=== PATIENT | female | born 1995 | race African-American/Black ===

== ENCOUNTER 2016-09-02 00:34 | Emergency (ER) | payer BC, MEDICAID, OTHER ==
[2016-09-02 00:41] VITALS: RESP 18; TEMP 98.1
[2016-09-02] MEDS ORDERED: KETOROLAC 30 MG/ML 1 ML VIAL IVP STA (01:21)
--- NOTE | 2016-09-02 01:26 | ED ---
Upper Extremity HPI - General Chief Complaint: Extremity Injury, Upper Stated Complaint: R Arm Injury Time Seen by Provider: 09/02/16 00:47 Source: patient Mode of arrival: ambulatory Limitations: no limitations - History of Present Illness Initial Comments: Into 21-year-old woman who presents to be evaluated for going on 3-4 days of right upper arm pain. She describes the feeling as I can aching or a "jittery" feeling and we starting at the right biceps area but it does sometimes radiate towards the forearm. The patient is not sure if she had an injury while working. She does not remember any specific impact to her arm. 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 Patient denies fever, chest pain , dyspnea or diaphoresis. She has not had vomiting. MD Complaint: Injury to:: right, arm Onset/Timin -: days(s) Other Injuries: none Handedness: right Place: work Improves With: rest Worsens With: movement of extremity - Related Data Home Medications Medication Instructions Recorded Confirmed Albuterol Nebulized [Ventolin 2.5 mg INHALATION QID PRN 03/14/14 09/02/16 Nebulized] Beclomethasone Dipropionate [Qvar 1 - 2 puff INHALATION BID 03/14/14 09/02/16 40 mcg/puff] Beclomethasone Dipropionate [Qvar 1 puff INHALATION BID 09/04/15 09/02/16 80 mcg/puff] Omalizumab [Xolair] 1 injection INJ DIRECTED 09/04/15 09/02/16 Previous Rx's Medication Instructions Recorded Montelukast [Singulair] 10 mg PO DAILY #30 tab 03/16/14 Albuterol Inhaler [Ventolin Hfa 2 puff INHALATION Q4HR PRN #1 06/06/15 Inhaler] inhaler Ibuprofen [Motrin] 600 mg PO Q8HR PRN #30 tab 09/04/15 Cyclobenzaprine [Flexeril] 10 mg PO TID PRN #15 tab 09/02/16 Ibuprofen [Motrin] 400 mg PO Q6HR PRN #20 tab 09/02/16 Allergies Allergy/AdvReac Type Severity Reaction Status Date / Time amoxicillin [Amoxicillin] Allergy Anaphylaxis Verified 09/04/15 18:33 Review of Systems ROS Statement: Those systems with pertinent positive or pertinent negative responses have been documented in the HPI. ROS Other: All systems not noted in ROS Statement are negative. Constitutional: Denies: fever, chills, weakness Respiratory: Denies: cough, dyspnea Cardiovascular: Denies: chest pain, palpitations, edema Gastrointestinal: Denies: vomiting Skin: Denies: rash Neurological: Denies: weakness, numbness, paresthesias Past Medical History Past Medical History: Asthma History of Any Multi-Drug Resistant Organisms: None Reported Past Surgical History: No Surgical Hx Reported Additional Past Anesthesia/Blood Transfusion Reaction / Comment(s): no anesthesia or blood before Past Psychological History: No Psychological Hx Reported Smoking Status: Never smoker Past Alcohol Use History: None Reported Past Drug Use History: None Reported - Past Family History Father Family Medical History: Asthma General Exam Limitations: no limitations General appearance: alert, in no apparent distress Neck exam: Present: normal inspection, full ROM. Absent: tenderness Respiratory exam: Present: normal lung sounds bilaterally. Absent: respiratory distress, wheezes, rales, rhonchi, stridor Cardiovascular Exam: Present: regular rate, normal rhythm, normal heart sounds. Absent: systolic murmur, diastolic murmur, rubs, gallop Right Shoulder Exam: Present: normal inspection, full ROM Upper Arm exam: Present: normal inspection, full ROM, tenderness (To the right biceps. There also appears to be somewhat increased muscle tone when compared with the left side.). Absent: swelling, abrasion, laceration, ecchymosis, deformity, crepidus, dislocation, erythema Elbow exam: Present: normal inspection, full ROM. Absent: tenderness, swelling Forearm Wrist exam: Present: normal inspection, full ROM. Absent: tenderness, swelling Hand Wrist exam: Present: normal inspection, full ROM. Absent: tenderness, swelling Neuro motor exam: Present: wrist extension intact, thumb opposition intact Neurosensory exam: Present: radial nerve intact, ulnar nerve intact, median nerve intact Vascular: Present: normal capillary refill, radial pulse, brachial pulse, ulnar pulse. Absent: vascular compromise, Pallo Neurological exam: Present: alert. Absent: motor sensory deficit Skin exam: Present: warm, dry, intact, normal color. Absent: rash Course Vital Signs 09/02/16 00:39 Temperature 98.1 F Pulse Rate 88 Respiratory 18 Rate Blood Pressure 130/76 O2 Sat by Pulse 99 Oximetry Medical Decision Making - Lab Data Result diagrams: 09/02/16 01:50 09/02/16 01:50 Lab Results 09/02/16 09/02/16 09/02/16 Range/Units 01:50 01:50 01:50 WBC 7.1 (3.8-10.6) k/uL RBC 4.08 (3.80-5.40) m/uL Hgb 12.5 (11.4-16.0) gm/dL Hct 38.4 (34.0-46.0) % MCV 94.1 (80.0-100.0) fL MCH 30.6 (25.0-35.0) pg MCHC 32.5 (31.0-37.0) g/dL RDW 12.6 (11.5-15.5) % Plt Count 224 (150-450) k/uL Neutrophils % 45 % Lymphocytes % 43 % Monocytes % 5 % Eosinophils % 3 % Basophils % 1 % Neutrophils # 3.2 (1.3-7.7) k/uL Lymphocytes # 3.1 (1.0-4.8) k/uL Monocytes # 0.4 (0-1.0) k/uL Eosinophils # 0.2 (0-0.7) k/uL Basophils # 0.1 (0-0.2) k/uL D-Dimer <0.17 (<0.60) mg/L FEU Sodium 141 (137-145) mmol/L Potassium 5.1 (3.5-5.1) mmol/L Chloride 107 (98-107) mmol/L Carbon Dioxide 22 (22-30) mmol/L Anion Gap 12 mmol/L BUN 14 (7-17) mg/dL Creatinine 0.70 (0.52-1.04) mg/dL Est GFR (MDRD) Af Amer >60 (>60 ml/min/1.73 sqM) Est GFR (MDRD) Non-Af >60 (>60 ml/min/1.73 sqM) Glucose 95 (74-99) mg/dL Calcium 9.6 (8.4-10.2) mg/dL C-Reactive Protein <5.0 (<10.0) mg/L Disposition Clinical Impression: Muscle strain Disposition: HOME SELF-CARE Condition: Good Instructions: Muscle Strain (ED) Prescriptions: Cyclobenzaprine [Flexeril] 10 mg PO TID PRN #15 tab PRN Reason: Pain Ibuprofen [Motrin] 400 mg PO Q6HR PRN #20 tab PRN Reason: Pain Referrals: Hyacinth Montero MD [Primary Care Provider] - 1-2 days
[2016-09-02 02:14] LABS: Basophils # (A) 0.1 k/uL (0-0.2); Basophils % (A) 1 %; CH 30.6; CHCM 32.7; Eosinophils # (A) 0.2 k/uL (0-0.7); Eosinophils % (A) 3 %; HCT 38.4 % (34.0-46.0); HDW 2.05; HGB 12.5 gm/dL (11.4-16.0); Luc # (Auto) 0.21; Luc % (Auto) 3; Lymphocytes # (A) 3.1 k/uL (1.0-4.8); Lymphocytes % (A) 43 %; MCH 30.6 pg (25.0-35.0); MCHC 32.5 g/dL (31.0-37.0); MCV 94.1 fL (80.0-100.0); Mean Platelet Volume 7.7; Monocytes # (A) 0.4 k/uL (0-1.0); Monocytes % (A) 5 %; Neutrophils # (A) 3.2 k/uL (1.3-7.7); Neutrophils % (A) 45 %; RBC 4.08 m/uL (3.80-5.40); RDW 12.6 % (11.5-15.5); WBC 7.1 k/uL (3.8-10.6); WBC (Perox) 7.06
[2016-09-02 02:25] LABS: Anion Gap 12 mmol/L; C Reactive Protein <5.0 mg/L (<10.0); Calcium 9.6 mg/dL (8.4-10.2); Carbon Dioxide 22 mmol/L (22-30); Chloride 107 mmol/L (98-107); Glucose 95 mg/dL (74-99); Non-African American GFR(MDRD) >60 (>60 ml/min/1.73 sqM); Sodium 141 mmol/L (137-145)
[2016-09-02 02:30] LABS: Blood Urea Nitrogen 14 mg/dL (7-17); Potassium 5.1 mmol/L (3.5-5.1)
[2016-09-02 03:54] VITALS: BP 123/82; PULSE 67
== END 2016-09-02 03:52 | disposition home or self-care (01) ==
LOC: EC 00:34
DX: S46.211A Strain of muscle, fascia and tendon of other parts of biceps, right arm, initial encounter (principal); J45.909 Unspecified asthma, uncomplicated; Z79.51 Long term (current) use of inhaled steroids; Z79.899 Other long term (current) drug therapy; Z88.0 Allergy status to penicillin; X50.0XXA Overexertion from strenuous movement or load, initial encounter; Y92.89 Other specified places as the place of occurrence of the external cause
CPT/HCPCS: 36415; 85379; 80048; 85025; 86140; 99283; 96374; J1885; 99284

== ENCOUNTER 2016-11-17 16:33 | Emergency (ER) | payer MEDICAID, OTHER ==
[2016-11-17] MEDS ORDERED: methylPREDNISolone SOD SUCCI 125 MG/2 ML VIAL IV STA (18:20)
[2016-11-17] MEDS ORDERED: IPRATROPIUM-ALBUTEROL 3 ML NEB INHALATION STA (18:20)
[2016-11-17] MEDS ORDERED: SODIUM CHLORIDE 0.9% 1,000 ML IV STA (18:20)
--- NOTE | 2016-11-17 18:25 | ED ---
SOB HPI - General Chief Complaint: Shortness of Breath Stated Complaint: Asthma-SOB Time Seen by Provider: 11/17/16 18:01 Source: patient Mode of arrival: ambulatory Limitations: no limitations - History of Present Illness Initial Comments: She has a history of asthma, asthma been quite bad for the last few days she seen her family doctor recently and she also went to see her doctor with the director of physical therapy she seen her nurse practitioner she got her started on Abreva Singulair and prednisone and albuterol she still saying that had to use his albuterol multiple times today. She went to work today was quite short of breath in" home, had a fever yesterday and has been coughing now bringing up any phlegm cough is mostly dry she also has a chest pain when she takes a deep breath, degree of system is negative otherwise - Related Data Home Medications Medication Instructions Recorded Confirmed Albuterol Nebulized [Ventolin 2.5 mg INHALATION RT-QID PRN 03/14/14 11/17/16 Nebulized] Beclomethasone Dipropionate [Qvar 1 puff INHALATION RT-BID 09/04/15 11/17/16 80 mcg/puff] Albuterol Inhaler [Ventolin Hfa 2 puff INHALATION RT-Q4H PRN 11/17/16 11/17/16 Inhaler] Fluticasone/Vilanterol [Breo 1 puff INHALATION RT-DAILY 11/17/16 11/17/16 Ellipta 200-25 Mcg INH] Norelgestromin/Ethin.estradiol 1 patch TRANSDERM VIDAL 11/17/16 11/17/16 [Xulane Patch] predniSONE See Taper PO DAILY 11/17/16 11/17/16 Previous Rx's Medication Instructions Recorded Montelukast [Singulair] 10 mg PO DAILY #30 tab 03/16/14 Allergies Allergy/AdvReac Type Severity Reaction Status Date / Time amoxicillin [Amoxicillin] Allergy Anaphylaxis Verified 11/17/16 18:39 Review of Systems ROS Statement: Those systems with pertinent positive or pertinent negative responses have been documented in the HPI. ROS Other: All systems not noted in ROS Statement are negative. Past Medical History Past Medical History: Asthma History of Any Multi-Drug Resistant Organisms: None Reported Past Surgical History: No Surgical Hx Reported Additional Past Anesthesia/Blood Transfusion Reaction / Comment(s): no anesthesia or blood before Past Psychological History: No Psychological Hx Reported Smoking Status: Never smoker Past Alcohol Use History: None Reported Past Drug Use History: None Reported - Past Family History Father Family Medical History: Asthma General Exam - General Exam Comments Initial Comments: General: The patient is awake and alert, mild distress, some jitteriness from the albuterol Skin: Skin is warm and dry and no rashes or lesions are noted. Eye: Pupils are equal, round and reactive to light, extra-ocular movements are intact; there is normal conjunctiva bilaterally. Ears, nose, mouth and throat: There are moist mucous membranes and no oral lesions. Neck: The neck is supple, there is no tenderness Cardiovascular: There is a regular rate and rhythm. No murmur, rub or gallop is appreciated. Respiratory: To auscultation bilateral, mild wheezing noticed Gastrointestinal: Soft, non-distended, non-tender abdomen without masses or organomegaly noted. There is no rebound or guarding present. Bowel sounds are unremarkable. Back: There is no tenderness to palpation in the midline. There is no obvious deformity. Musculoskeletal: Normal ROM, no tenderness, There is no pedal edema. There is no calf tenderness or swelling. No cords were appreciated. Neurological: CN II-XII intact, Cranial nerves III through XII are intact. There are no obvious motor or sensory deficits. Coordination appears grossly intact. Speech is normal. Psychiatric: Cooperative, appropriate mood & affect, normal judgment. Limitations: no limitations Course Vital Signs 11/17/16 11/17/16 11/17/16 17:04 19:20 19:30 Temperature 99.3 F Pulse Rate 96 92 90 Respiratory 20 Rate Blood Pressure 136/78 O2 Sat by Pulse 100 Oximetry Is normal sinus rhythm with sinus arrhythmia ventricular rate is 92 PA interval is 164 QRS duration is 80 QT/QTc is 358/442 review of this EKG does not reveal any ST elevation or ST depression Is in was reassessed at 2100 she is feeling a lot better she was giving some neb treatment she was giving him IV steroids, labs were reviewed and discussed with the patient, CBC, d-dimer, compressive metabolic panel, chest x-ray, EKG, troponin are all negative that was discussed with the patient she be discharged with the steroids 20 mg once daily for next 5 days and she'll follow-up with her bologna lacer she will continue her short acting long-acting bronchodilators as well as inhaled steroids Medical Decision Making - Lab Data Result diagrams: 11/17/16 19:43 11/17/16 19:43 Lab Results 11/17/16 11/17/16 11/17/16 Range/Units 19:43 19:43 19:43 WBC 9.0 (3.8-10.6) k/uL RBC 4.32 (3.80-5.40) m/uL Hgb 14.9 (11.4-16.0) gm/dL Hct 40.9 (34.0-46.0) % MCV 94.8 (80.0-100.0) fL MCH 34.6 (25.0-35.0) pg MCHC 36.5 (31.0-37.0) g/dL RDW 13.4 (11.5-15.5) % Plt Count 236 (150-450) k/uL Neutrophils % 86 % Lymphocytes % 11 % Monocytes % 2 % Eosinophils % 0 % Basophils % 0 % Neutrophils # 7.8 H (1.3-7.7) k/uL Lymphocytes # 1.0 (1.0-4.8) k/uL Monocytes # 0.2 (0-1.0) k/uL Eosinophils # 0.0 (0-0.7) k/uL Basophils # 0.0 (0-0.2) k/uL PT (9.0-12.0) sec INR (<1.1) APTT (22.0-30.0) sec D-Dimer (<0.60) mg/L FEU Sodium 140 (137-145) mmol/L Potassium 4.9 (3.5-5.1) mmol/L Chloride 105 (98-107) mmol/L Carbon Dioxide 22 (22-30) mmol/L Anion Gap 13 mmol/L BUN 15 (7-17) mg/dL Creatinine 0.77 (0.52-1.04) mg/dL Est GFR (MDRD) Af Amer >60 (>60 ml/min/1.73 sqM) Est GFR (MDRD) Non-Af >60 (>60 ml/min/1.73 sqM) Glucose 102 H (74-99) mg/dL Calcium 10.0 (8.4-10.2) mg/dL Total Bilirubin 0.6 (0.2-1.3) mg/dL AST 21 (14-36) U/L ALT 21 (9-52) U/L Alkaline Phosphatase 83 (38-126) U/L Total Creatine Kinase 231 H (30-135) U/L CK-MB (CK-2) 0.8 (0.0-2.4) ng/mL CK-MB (CK-2) Rel Index 0.3 Troponin I <0.012 (0.000-0.034) ng/mL Total Protein 8.9 H (6.3-8.2) g/dL Albumin 5.2 H (3.5-5.0) g/dL 11/17/16 Range/Units 19:43 WBC (3.8-10.6) k/uL RBC (3.80-5.40) m/uL Hgb (11.4-16.0) gm/dL Hct (34.0-46.0) % MCV (80.0-100.0) fL MCH (25.0-35.0) pg MCHC (31.0-37.0) g/dL RDW (11.5-15.5) % Plt Count (150-450) k/uL Neutrophils % % Lymphocytes % % Monocytes % % Eosinophils % % Basophils % % Neutrophils # (1.3-7.7) k/uL Lymphocytes # (1.0-4.8) k/uL Monocytes # (0-1.0) k/uL Eosinophils # (0-0.7) k/uL Basophils # (0-0.2) k/uL PT 10.5 (9.0-12.0) sec INR 1.0 (<1.1) APTT 23.2 (22.0-30.0) sec D-Dimer <0.17 (<0.60) mg/L FEU Sodium (137-145) mmol/L Potassium (3.5-5.1) mmol/L Chloride (98-107) mmol/L Carbon Dioxide (22-30) mmol/L Anion Gap mmol/L BUN (7-17) mg/dL Creatinine (0.52-1.04) mg/dL Est GFR (MDRD) Af Amer (>60 ml/min/1.73 sqM) Est GFR (MDRD) Non-Af (>60 ml/min/1.73 sqM) Glucose (74-99) mg/dL Calcium (8.4-10.2) mg/dL Total Bilirubin (0.2-1.3) mg/dL AST (14-36) U/L ALT (9-52) U/L Alkaline Phosphatase (38-126) U/L Total Creatine Kinase (30-135) U/L CK-MB (CK-2) (0.0-2.4) ng/mL CK-MB (CK-2) Rel Index Troponin I (0.000-0.034) ng/mL Total Protein (6.3-8.2) g/dL Albumin (3.5-5.0) g/dL Disposition Clinical Impression: Pleuritic chest pain, Acute exacerbation of asthma with allergic rhinitis Disposition: HOME SELF-CARE Referrals: Hyacinth Montero MD [Primary Care Provider] - 1-2 days
--- NOTE | 2016-11-17 19:27 | XR ---
EXAMINATION TYPE: XR chest 2V DATE OF EXAM: 11/17/2016 7:19 PM COMPARISON: 06/06/2015 HISTORY: Difficulty breathing TECHNIQUE: Frontal and lateral views of the chest are obtained. FINDINGS: Heart and mediastinum are normal. Lungs are clear. Diaphragm is normal. Bony thorax is int act. There are chest leads. IMPRESSION: Normal chest. No change.
[2016-11-17] MEDS ORDERED: ACETAMINOPHEN TAB 500 MG TAB PO STA (19:55)
[2016-11-17 20:01] LABS: Basophils % (A) 0 %; CH 30.4; CHCM 32.2; Eosinophils % (A) 0 %; HCT 40.9 % (34.0-46.0); HDW 1.97; HGB 14.9 gm/dL (11.4-16.0); Luc # (Auto) 0.06; Luc % (Auto) 1; Lymphocytes % (A) 11 %; MCH 34.6 pg (25.0-35.0); MCHC 36.5 g/dL (31.0-37.0); MCV 94.8 fL (80.0-100.0); Mean Platelet Volume 7.1; Monocytes # (A) 0.2 k/uL (0-1.0); Monocytes % (A) 2 %; Neutrophils # (A) 7.8 k/uL (1.3-7.7); Neutrophils % (A) 86 %; RBC 4.32 m/uL (3.80-5.40); RDW 13.4 % (11.5-15.5); WBC (Perox) 8.51
[2016-11-17 20:09] LABS: Partial Thromboplastin Time 23.2 sec (22.0-30.0); Prothrombin Time 10.5 sec (9.0-12.0)
[2016-11-17 20:16] LABS: ALT 21 U/L (9-52); AST 21 U/L (14-36); Alkaline Phosphatase 83 U/L (38-126); Anion Gap 13 mmol/L; Blood Urea Nitrogen 15 mg/dL (7-17); Carbon Dioxide 22 mmol/L (22-30); Chloride 105 mmol/L (98-107); Glucose 102 mg/dL (74-99); Non-African American GFR(MDRD) >60 (>60 ml/min/1.73 sqM); Potassium 4.9 mmol/L (3.5-5.1); Sodium 140 mmol/L (137-145); Total Bilirubin 0.6 mg/dL (0.2-1.3); Total Protein 8.9 g/dL (6.3-8.2)
[2016-11-17 20:20] LABS: Creatine Kinase 231 U/L (30-135)
[2016-11-17 20:33] LABS: Creatine Kinase MB 0.8 ng/mL (0.0-2.4); Troponin I <0.012 ng/mL (0.000-0.034)
[2016-11-17 21:08] VITALS: BP 121/87; PULSE 97; RESP 18; TEMP 97
== END 2016-11-17 21:28 | disposition home or self-care (01) ==
LOC: EC 16:33
DX: J45.901 Unspecified asthma with (acute) exacerbation (principal); R07.81 Pleurodynia; Z79.3 Long term (current) use of hormonal contraceptives; Z79.51 Long term (current) use of inhaled steroids; Z88.0 Allergy status to penicillin
CPT/HCPCS: 36415; 94640; 93005; 85379; 80053; 82550; 82553; 84484; 85025; 85610; 85730; 71020; 99285; 96374; 96361; J2930

== ENCOUNTER 2017-01-22 18:34 | Emergency (ER) | payer MEDICAID, OTHER ==
[2017-01-22 18:49] VITALS: TEMP 97.9
[2017-01-22] MEDS ORDERED: methylPREDNISolone SOD SUCCI 125 MG/2 ML VIAL IV STA (18:59)
[2017-01-22] MEDS ORDERED: IPRATROPIUM-ALBUTEROL 3 ML NEB INHALATION STA (18:59)
--- NOTE | 2017-01-22 19:33 | ED ---
General Adult HPI - General Chief complaint: Shortness of Breath Stated complaint: Diff breathing Time Seen by Provider: 01/22/17 18:38 Source: patient, EMS Mode of arrival: EMS Limitations: no limitations - History of Present Illness Initial comments: 21-year-old female patient presented to emergency department today with complaints of shortness of breath and asthma exacerbation. Patient states that she has been mildly short of breath all day, and started having more trouble at work today. Patient states that she is short of breath, is having some pain in the left side of her chest that radiates through to her back. Patient states pain worsens when she takes deep breaths. Patient does have a history of asthma with the last asthma attack being about 5 days ago. Patient states that she has been using her rescue inhaler 7 or 8 times per day. Patient says she has 2-4 puffs at a time. She denies any sick, vomiting, cough, congestion, sore throat, nasal dizziness, weakness, or chills. Patient did a breathing treatment when she woke this morning, one before she went to work, and did have [address] here. Patient states she has had very minimal improvement from the breathing treatment. - Related Data Home Medications Medication Instructions Recorded Confirmed Beclomethasone Dipropionate [Qvar 2 puff INHALATION RT-BID 09/04/15 01/22/17 80 mcg/puff] Albuterol Inhaler [Ventolin Hfa 2 puff INHALATION RT-Q4H PRN 11/17/16 01/22/17 Inhaler] Fluticasone/Vilanterol [Breo 1 puff INHALATION RT-DAILY 11/17/16 01/22/17 Ellipta 200-25 Mcg INH] Norelgestromin/Ethin.estradiol 1 patch TRANSDERM VIDAL 11/17/16 01/22/17 [Xulane Patch] Montelukast [Singulair] 10 mg PO QAM 01/22/17 01/22/17 Allergies Allergy/AdvReac Type Severity Reaction Status Date / Time amoxicillin [Amoxicillin] Allergy Anaphylaxis Verified 11/17/16 18:39 Review of Systems ROS Statement: Those systems with pertinent positive or pertinent negative responses have been documented in the HPI. ROS Other: All systems not noted in ROS Statement are negative. Past Medical History Past Medical History: Asthma History of Any Multi-Drug Resistant Organisms: None Reported Past Surgical History: No Surgical Hx Reported Additional Past Anesthesia/Blood Transfusion Reaction / Comment(s): no anesthesia or blood before Past Psychological History: No Psychological Hx Reported Smoking Status: Never smoker Past Alcohol Use History: None Reported Past Drug Use History: None Reported - Past Family History Father Family Medical History: Asthma General Exam Limitations: no limitations General appearance: alert, in no apparent distress, in distress (Mild distress, appears short of breath.) Eye exam: Present: normal appearance, PERRL, EOMI. Absent: scleral icterus, conjunctival injection, periorbital swelling ENT exam: Present: normal exam, normal oropharynx, mucous membranes moist Neck exam: Present: normal inspection. Absent: tenderness, meningismus, lymphadenopathy Respiratory exam: Present: normal lung sounds bilaterally, respiratory distress (Mild, appears short of breath). Absent: wheezes, rales, rhonchi, stridor Cardiovascular Exam: Present: normal rhythm, tachycardia, normal heart sounds. Absent: systolic murmur, diastolic murmur, rubs, gallop, clicks GI/Abdominal exam: Present: soft, normal bowel sounds. Absent: distended, tenderness, guarding, rebound, rigid Extremities exam: Present: normal inspection, full ROM, normal capillary refill. Absent: tenderness, pedal edema, joint swelling, calf tenderness Back exam: Present: normal inspection Neurological exam: Present: alert, oriented X3, CN II-XII intact Psychiatric exam: Present: normal affect, normal mood Skin exam: Present: warm, dry, intact, normal color. Absent: rash Course Vital Signs 01/22/17 01/22/17 01/22/17 18:40 18:44 19:15 Temperature 97.9 F Pulse Rate 103 H 79 Respiratory 24 26 H Rate Blood Pressure 142/94 O2 Sat by Pulse 100 100 Oximetry 01/22/17 01/22/17 01/22/17 19:24 19:30 20:15 Temperature Pulse Rate 81 88 98 Respiratory 18 18 Rate Blood Pressure 131/83 130/96 O2 Sat by Pulse 100 99 Oximetry 01/22/17 01/22/17 01/22/17 20:46 21:24 22:25 Temperature Pulse Rate 83 89 99 Respiratory 18 18 18 Rate Blood Pressure 144/88 139/83 153/97 O2 Sat by Pulse 100 99 100 Oximetry Medical Decision Making - Medical Decision Making 21-year-old female patient presents to emergency department today for evaluation of shortness of breath, and left-sided chest pain. Patient had past medical history significant for asthma. After negative chest x-ray, IM slight Medrol, and breathing treatment patient's symptoms had not improved. At that time Blood work was obtained and was within normal limits other than a d-dimer of 0.68. CTA of the chest was performed and showed no pulmonary embolus. Patient's symptoms have improved other than some mild discomfort in her left chest. Patient is also complaining of headache and is having some nausea. Vital signs and oxygenation remained stable. At this time patient will be discharged home with instructions to continue current regimen for controlling her asthma. She is also instructed to follow-up with her pharmacy services representative in one to 2 days. Patient will be given a starter pack for Zofran. Patient instructed to return for any new, worsening, or concerning symptoms. Patient verbalized understanding and agrees with this plan. - Lab Data Result diagrams: 01/22/17 20:25 01/22/17 20:25 Lab Results 01/22/17 01/22/17 01/22/17 Range/Units 20:25 20:25 20:25 WBC 9.1 (3.8-10.6) k/uL RBC 4.33 (3.80-5.40) m/uL Hgb 13.5 (11.4-16.0) gm/dL Hct 41.0 (34.0-46.0) % MCV 94.6 (80.0-100.0) fL MCH 31.2 (25.0-35.0) pg MCHC 33.0 (31.0-37.0) g/dL RDW 13.5 (11.5-15.5) % Plt Count 269 (150-450) k/uL Neutrophils % 72 % Lymphocytes % 20 % Monocytes % 3 % Eosinophils % 4 % Basophils % 1 % Neutrophils # 6.5 (1.3-7.7) k/uL Lymphocytes # 1.8 (1.0-4.8) k/uL Monocytes # 0.3 (0-1.0) k/uL Eosinophils # 0.4 (0-0.7) k/uL Basophils # 0.1 (0-0.2) k/uL D-Dimer 0.68 H (<0.60) mg/L FEU Sample Site ABG pH (7.35-7.45) ABG pCO2 (35-45) mmHg ABG pO2 (83-108) mmHg ABG HCO3 (21-25) mmol/L ABG Total CO2 (19-24) mmol/L ABG O2 Saturation (94-97) % ABG Base Excess mmol/L FiO2 % Sodium 144 (137-145) mmol/L Potassium 4.1 (3.5-5.1) mmol/L Chloride 105 (98-107) mmol/L Carbon Dioxide 24 (22-30) mmol/L Anion Gap 15 mmol/L BUN 12 (7-17) mg/dL Creatinine 0.70 (0.52-1.04) mg/dL Est GFR (MDRD) Af Amer >60 (>60 ml/min/1.73 sqM) Est GFR (MDRD) Non-Af >60 (>60 ml/min/1.73 sqM) Glucose 95 (74-99) mg/dL Calcium 10.1 (8.4-10.2) mg/dL Total Bilirubin 0.3 (0.2-1.3) mg/dL AST 22 (14-36) U/L ALT 30 (9-52) U/L Alkaline Phosphatase 74 (38-126) U/L Troponin I (0.000-0.034) ng/mL Total Protein 8.1 (6.3-8.2) g/dL Albumin 5.0 (3.5-5.0) g/dL Urine Color Urine Appearance (Clear) Urine pH (5.0-8.0) Ur Specific Sharon (1.001-1.035) Urine Protein (Negative) Urine Glucose (UA) (Negative) Urine Ketones (Negative) Urine Blood (Negative) Urine Nitrite (Negative) Urine Bilirubin (Negative) Urine Urobilinogen (<2.0) mg/dL Ur Leukocyte Esterase (Negative) Ur Squamous Epith Cells (0-4) /hpf Amorphous Sediment (None) /hpf Urine Bacteria (None) /hpf Urine HCG, Qual (Not Detectd) 01/22/17 01/22/17 01/22/17 Range/Units 20:25 20:58 21:10 WBC (3.8-10.6) k/uL RBC (3.80-5.40) m/uL Hgb (11.4-16.0) gm/dL Hct (34.0-46.0) % MCV (80.0-100.0) fL MCH (25.0-35.0) pg MCHC (31.0-37.0) g/dL RDW (11.5-15.5) % Plt Count (150-450) k/uL Neutrophils % % Lymphocytes % % Monocytes % % Eosinophils % % Basophils % % Neutrophils # (1.3-7.7) k/uL Lymphocytes # (1.0-4.8) k/uL Monocytes # (0-1.0) k/uL Eosinophils # (0-0.7) k/uL Basophils # (0-0.2) k/uL D-Dimer (<0.60) mg/L FEU Sample Site R RAD ABG pH 7.52 H (7.35-7.45) ABG pCO2 27 L (35-45) mmHg ABG pO2 149 H (83-108) mmHg ABG HCO3 22 (21-25) mmol/L ABG Total CO2 23 (19-24) mmol/L ABG O2 Saturation 100.0 H (94-97) % ABG Base Excess -0.8 mmol/L FiO2 28 % Sodium (137-145) mmol/L Potassium (3.5-5.1) mmol/L Chloride (98-107) mmol/L Carbon Dioxide (22-30) mmol/L Anion Gap mmol/L BUN (7-17) mg/dL Creatinine (0.52-1.04) mg/dL Est GFR (MDRD) Af Amer (>60 ml/min/1.73 sqM) Est GFR (MDRD) Non-Af (>60 ml/min/1.73 sqM) Glucose (74-99) mg/dL Calcium (8.4-10.2) mg/dL Total Bilirubin (0.2-1.3) mg/dL AST (14-36) U/L ALT (9-52) U/L Alkaline Phosphatase (38-126) U/L Troponin I <0.012 (0.000-0.034) ng/mL Total Protein (6.3-8.2) g/dL Albumin (3.5-5.0) g/dL Urine Color Urine Appearance (Clear) Urine pH (5.0-8.0) Ur Specific Sharon (1.001-1.035) Urine Protein (Negative) Urine Glucose (UA) (Negative) Urine Ketones (Negative) Urine Blood (Negative) Urine Nitrite (Negative) Urine Bilirubin (Negative) Urine Urobilinogen (<2.0) mg/dL Ur Leukocyte Esterase (Negative) Ur Squamous Epith Cells (0-4) /hpf Amorphous Sediment (None) /hpf Urine Bacteria (None) /hpf Urine HCG, Qual Not Detected (Not Detectd) 01/22/17 Range/Units 21:10 WBC (3.8-10.6) k/uL RBC (3.80-5.40) m/uL Hgb (11.4-16.0) gm/dL Hct (34.0-46.0) % MCV (80.0-100.0) fL MCH (25.0-35.0) pg MCHC (31.0-37.0) g/dL RDW (11.5-15.5) % Plt Count (150-450) k/uL Neutrophils % % Lymphocytes % % Monocytes % % Eosinophils % % Basophils % % Neutrophils # (1.3-7.7) k/uL Lymphocytes # (1.0-4.8) k/uL Monocytes # (0-1.0) k/uL Eosinophils # (0-0.7) k/uL Basophils # (0-0.2) k/uL D-Dimer (<0.60) mg/L FEU Sample Site ABG pH (7.35-7.45) ABG pCO2 (35-45) mmHg ABG pO2 (83-108) mmHg ABG HCO3 (21-25) mmol/L ABG Total CO2 (19-24) mmol/L ABG O2 Saturation (94-97) % ABG Base Excess mmol/L FiO2 % Sodium (137-145) mmol/L Potassium (3.5-5.1) mmol/L Chloride (98-107) mmol/L Carbon Dioxide (22-30) mmol/L Anion Gap mmol/L BUN (7-17) mg/dL Creatinine (0.52-1.04) mg/dL Est GFR (MDRD) Af Amer (>60 ml/min/1.73 sqM) Est GFR (MDRD) Non-Af (>60 ml/min/1.73 sqM) Glucose (74-99) mg/dL Calcium (8.4-10.2) mg/dL Total Bilirubin (0.2-1.3) mg/dL AST (14-36) U/L ALT (9-52) U/L Alkaline Phosphatase (38-126) U/L Troponin I (0.000-0.034) ng/mL Total Protein (6.3-8.2) g/dL Albumin (3.5-5.0) g/dL Urine Color Light Yellow Urine Appearance Cloudy H (Clear) Urine pH 8.0 (5.0-8.0) Ur Specific Sharon 1.010 (1.001-1.035) Urine Protein Negative (Negative) Urine Glucose (UA) Negative (Negative) Urine Ketones Negative (Negative) Urine Blood Negative (Negative) Urine Nitrite Negative (Negative) Urine Bilirubin Negative (Negative) Urine Urobilinogen <2.0 (<2.0) mg/dL Ur Leukocyte Esterase Negative (Negative) Ur Squamous Epith Cells 1 (0-4) /hpf Amorphous Sediment Rare H (None) /hpf Urine Bacteria Many H (None) /hpf Urine HCG, Qual (Not Detectd) 01/22/17 20:06 EKG obtained at 1954 reveals normal sinus rhythm with sinus arrhythmia, nonspecific T-wave abnormality. Ventricular rate 75, AR interval 166, Q hinduism 84, QT 378, QTC 422. - Radiology Data Radiology results: report reviewed, image reviewed Two-view x-ray of the chest reveals no focal air pace opacity, pleural effusion , or pneumothorax seen. The cardiac silhouette size is within normal limits. The osseous structures are intact. Impression by Dr. Beard reveals no acute cardio pulmonary process. CT of the chest reveals no pulmonary embolus, the aorta is within normal limits , no aneurysm or dissection. The cardiomediastinal structures are normal. No adenopathy or effusions. The lungs are clear. The osseous structures are unremarkable. Impression by Dr. Ortega is no evidence for pulmonary embolus. Disposition Clinical Impression: Asthma, Headache Disposition: HOME SELF-CARE Condition: Good Instructions: Asthma (ED), Acute Headache (ED) Additional Instructions: Follow-up with pharmacy services representative in one to 2 days for recheck. Continue home regimen for asthma control. Return for any new, worsening, or concerning symptoms. Referrals: Hyacinth Montero MD [Primary Care Provider] - 1-2 days Time of Disposition: 23:35
[2017-01-22] MEDS ORDERED: methylPREDNISolone SOD SUCCI 125 MG/2 ML VIAL IM ONE (19:45)
--- NOTE | 2017-01-22 19:46 | XR ---
EXAMINATION TYPE: XR chest 2V DATE OF EXAM: 01/22/2017 COMPARISON: November 17, 2016. HISTORY: Chest pain TECHNIQUE: Frontal and lateral views of the chest are obtained. FINDINGS: There is no focal air space opacity, pleural effusion, or pneumothorax seen. The cardiac silhouette size is within normal limits. The osseous structures are intact. IMPRESSION: No acute cardiopulmonary process.
[2017-01-22] MEDS ORDERED: KETOROLAC 30 MG/ML 1 ML VIAL IVP STA (20:13)
[2017-01-22 20:40] VITALS: RESP 18
[2017-01-22 20:43] LABS: Basophils # (A) 0.1 k/uL (0-0.2); Basophils % (A) 1 %; CH 30.9; CHCM 32.8; Eosinophils # (A) 0.4 k/uL (0-0.7); Eosinophils % (A) 4 %; HGB 13.5 gm/dL (11.4-16.0); Luc # (Auto) 0.09; Luc % (Auto) 1; Lymphocytes # (A) 1.8 k/uL (1.0-4.8); Lymphocytes % (A) 20 %; MCH 31.2 pg (25.0-35.0); MCV 94.6 fL (80.0-100.0); Mean Platelet Volume 7.4; Monocytes # (A) 0.3 k/uL (0-1.0); Monocytes % (A) 3 %; Neutrophils # (A) 6.5 k/uL (1.3-7.7); Neutrophils % (A) 72 %; RBC 4.33 m/uL (3.80-5.40); RDW 13.5 % (11.5-15.5); WBC 9.1 k/uL (3.8-10.6); WBC (Perox) 9.43
[2017-01-22 20:54] LABS: ALT 30 U/L (9-52); AST 22 U/L (14-36); Alkaline Phosphatase 74 U/L (38-126); Anion Gap 15 mmol/L; Blood Urea Nitrogen 12 mg/dL (7-17); Calcium 10.1 mg/dL (8.4-10.2); Carbon Dioxide 24 mmol/L (22-30); Chloride 105 mmol/L (98-107); Glucose 95 mg/dL (74-99); Non-African American GFR(MDRD) >60 (>60 ml/min/1.73 sqM); Potassium 4.1 mmol/L (3.5-5.1); Sodium 144 mmol/L (137-145); Total Bilirubin 0.3 mg/dL (0.2-1.3); Total Protein 8.1 g/dL (6.3-8.2)
[2017-01-22 21:12] LABS: ABG HCO3 22 mmol/L (21-25); ABG PCO2 27 mmHg (35-45); ABG PH 7.52 (7.35-7.45); ABG PO2 149 mmHg (83-108)
[2017-01-22 21:13] LABS: ABG Base Excess -0.8 mmol/L; ABG TCO2 23 mmol/L (19-24)
[2017-01-22 21:38] LABS: Amorphous Sediment,Urine Rare /hpf; Appearance,Urine Cloudy (Clear); Bacteria,Urine Many /hpf; Bilirubin,Urine Negative (Negative); Glucose,Urine (UA) Negative (Negative); Ketones,Urine Negative (Negative); Leukocyte Esterase,Urine Negative (Negative); Nitrite,Urine Negative (Negative); Particle Count 17193; Protein,Urine Negative (Negative); Squamous Epithelial Cell,Urine 1 /hpf (0-4); UA Billing (MACRO vs. MICRO) MICRO; Urobilinogen,Urine <2.0 mg/dL (<2.0)
[2017-01-22] MEDS ORDERED: RX INFO: IV CONTRAST WAS GIVEN 1 EACH MISC MISCELLANE PRN (21:41)
[2017-01-22] MEDS ORDERED: ACETAMINOPHEN TAB 325 MG TAB PO STA (22:27)
[2017-01-22] MEDS ORDERED: ONDANSETRON 4 MG/2 ML VIAL IVP STA (22:38)
--- NOTE | 2017-01-22 22:47 | CT ---
EXAM: CTA CHEST INDICATION: 21-year-old female with pain. COMPARISON: None. TECHNIQUE: Multiple axial images of the chest with IV contrast material, reformat coronal and sagittal images are submitted. MIP reconstructions were performed. DOSE: CTDI is 31.9 mGy and DLP is 108.50 mGy-cm DOSE REDUCTION: This CT exam was performed using one or more of the following dose reduction techniques: automated exposure control, adjustment of the mA and/or kV according to patient size, and/or use of iterative reconstruction technique. FINDINGS: No pulmonary embolus is identified. The aorta is within normal limits, no aneurysm or dissection. The cardiomediastinal structures are normal. No adenopathy or effusions. The lungs are clear. The osseous structures are unremarkable. IMPRESSION: No evidence of pulmonary embolus.
[2017-01-22] MEDS ORDERED: METOCLOPRAMIDE 5 MG/ML 2 ML VIAL IVP STA (23:36)
[2017-01-22] MEDS ORDERED: ONDANSETRON 4 MG ODT STARTER PACK 2 TAB BTL PO STA (23:36)
[2017-01-22] MEDS ORDERED: diphenhydrAMINE 50 MG/ML 1 ML VIAL IVP STA (23:36)
[2017-01-23 00:23] VITALS: BP 123/80; PULSE 94
== END 2017-01-23 00:23 | disposition home or self-care (01) ==
LOC: EC 18:34
DX: J45.909 Unspecified asthma, uncomplicated (principal); R51 Headache; I49.8 Other specified cardiac arrhythmias; M54.9 Dorsalgia, unspecified; Z79.3 Long term (current) use of hormonal contraceptives; Z79.51 Long term (current) use of inhaled steroids; Z79.899 Other long term (current) drug therapy; Z88.0 Allergy status to penicillin; Z82.5 Family history of asthma and other chronic lower respiratory diseases
CPT/HCPCS: 36415; 94640; 36600; 93005; 85379; 80053; 82805; 84484; 85025; 81001; 81025; 71020; 71275; 99285; 96374; 96375 ×3; 96372; J1200; J2765; J2930; Q9967; J2405; J1885; S0119

== ENCOUNTER 2017-02-25 04:50 | Emergency (ER) | payer MEDICAID, OTHER ==
[2017-02-25 05:00] VITALS: BP 142/63; PULSE 74; RESP 18; TEMP 98.1
--- NOTE | 2017-02-25 05:11 | ED ---
General Adult HPI - General Chief complaint: Vaginal Bleeding Stated complaint: vaginal bleeding Time Seen by Provider: 02/25/17 04:55 Source: patient, RN notes reviewed Mode of arrival: ambulatory Limitations: no limitations - History of Present Illness Initial comments: This is a 22-year-old female presents emergency Department complaining of irregular vaginal bleeding. Patient states about a week and half ago she had about 2 and half days of bleeding which was very short for her periods. Patient states she started bleeding yesterday Which was much heavier and then today she stopped bleeding and it was only old blood. Patient wants to know why. Patient denies any abdominal pain or pelvic pain. Patient denies any fever chills per patient denies any vomiting or diarrhea. Patient denies any dysuria hematuria or frequency. Patient states she stopped taking her control patch a month ago. - Related Data Home Medications Medication Instructions Recorded Confirmed Beclomethasone Dipropionate [Qvar 2 puff INHALATION RT-BID 09/04/15 02/25/17 80 mcg/puff] Albuterol Inhaler [Ventolin Hfa 2 puff INHALATION RT-Q4H PRN 11/17/16 02/25/17 Inhaler] Fluticasone/Vilanterol [Breo 1 puff INHALATION RT-DAILY 11/17/16 02/25/17 Ellipta 200-25 Mcg INH] Montelukast [Singulair] 10 mg PO QAM 01/22/17 02/25/17 Allergies Allergy/AdvReac Type Severity Reaction Status Date / Time amoxicillin [Amoxicillin] Allergy Anaphylaxis Verified 11/17/16 18:39 Review of Systems ROS Statement: Those systems with pertinent positive or pertinent negative responses have been documented in the HPI. ROS Other: All systems not noted in ROS Statement are negative. Past Medical History Past Medical History: Asthma History of Any Multi-Drug Resistant Organisms: None Reported Past Surgical History: No Surgical Hx Reported Additional Past Anesthesia/Blood Transfusion Reaction / Comment(s): no anesthesia or blood before Past Psychological History: No Psychological Hx Reported Smoking Status: Never smoker Past Alcohol Use History: None Reported Past Drug Use History: None Reported - Past Family History Father Family Medical History: Asthma General Exam - General Exam Comments Initial Comments: GENERAL: Patient is well-developed and well-nourished. Patient is nontoxic and well- hydrated and is in no acute distress. ENT: Neck is soft and supple. No significant lymphadenopathy is noted. Oropharynx is clear. Moist mucous membranes. Neck has full range of motion without eliciting any pain. EYES: The sclera were anicteric and conjunctiva were pink and moist. Extraocular movements were intact and pupils were equal round and reactive to light. Eyelids were unremarkable. PULMONARY: Unlabored respirations. Good breath sounds bilaterally. No audible rales rhonchi or wheezing was noted. CARDIOVASCULAR: There is a regular rate and rhythm without any murmurs gallops or rubs. ABDOMEN: Soft and nontender with normal bowel sounds. SKIN: Skin is clear with no lesions or rashes and otherwise unremarkable. NEUROLOGIC: Patient is alert and oriented x3. Cranial nerves II through XII are grossly intact. Motor and sensory are also intact. Normal speech, volume and content. Symmetrical smile. MUSCULOSKELETAL: Normal extremities with adequate strength and full range of motion. LYMPHATICS: No significant lymphadenopathy is noted PSYCHIATRIC: Normal psychiatric evaluation. Limitations: no limitations Course Vital Signs 02/25/17 04:57 Temperature 98.1 F Pulse Rate 74 Respiratory 18 Rate Blood Pressure 142/63 O2 Sat by Pulse 100 Oximetry Medical Decision Making - Medical Decision Making I performed a pelvic exam on speculum exam there was only some old blood in the vaginal vault no active bleeding or abnormalities were seen. Patient's present test was negative. - Lab Data Lab Results 02/25/17 Range/Units 03:09 Urine HCG, Qual Not Detected (Not Detectd) Disposition Clinical Impression: Dysfunctional uterine bleeding Disposition: HOME SELF-CARE Condition: Good Instructions: Dysfunctional Uterine Bleeding (ED) Referrals: Hyacinth Montero MD [Primary Care Provider] - 1-2 days Time of Disposition: 05:40
== END 2017-02-25 05:50 | disposition home or self-care (01) ==
LOC: EC 04:50
DX: N93.8 Other specified abnormal uterine and vaginal bleeding (principal); J45.909 Unspecified asthma, uncomplicated; Z88.0 Allergy status to penicillin; Z79.51 Long term (current) use of inhaled steroids; Z79.899 Other long term (current) drug therapy
CPT/HCPCS: 81025; 99284

== ENCOUNTER 2017-05-02 19:53 | Inpatient (IN) | payer MEDICAID, OTHER ==
[2017-05-02] MEDS ORDERED: SODIUM CHLORIDE 0.9% 500 ML IV STA (20:09)
--- NOTE | 2017-05-02 20:28 | ED ---
General Adult HPI - General Chief complaint: Chest Pain Stated complaint: chest pain Time Seen by Provider: 05/02/17 20:04 Source: patient, RN notes reviewed Mode of arrival: ambulatory Limitations: no limitations - History of Present Illness Initial comments: 22-year-old female presents emergency Department with chief complaint of shortness of breath, chest tightness. Patient states that she has a long history of asthma states that she is having increasing issues recently and did see her dormitory supervisor Dr. Phillips who started her on prednisone. She states that she used to be on Qvar but states that she does not have currently and states that she is going back on her Xolair injections. Patient states that she's been doing treatments and use her inhaler more than usual and states is not alleviating her symptoms. Patient also complains of right flank pain with dysuria. Denies fever, chills. She states that she has been admitted several times for her asthma. Denies any calf pain, calf swelling, recent traveling or any history of DVT or PE. Patient does admit to palpitations, and the heart is racing at this time. - Related Data Home Medications Medication Instructions Recorded Confirmed Albuterol Inhaler [Ventolin Hfa 2 puff INHALATION RT-Q4H PRN 11/17/16 05/02/17 Inhaler] Montelukast [Singulair] 10 mg PO QAM 01/22/17 05/02/17 Albuterol Nebulized [Ventolin 2.5 mg INHALATION RT-Q4H PRN 05/02/17 05/02/17 Nebulized] LORazepam [Ativan] 0.5 mg PO DAILY PRN 05/02/17 05/02/17 predniSONE See Taper PO DAILY 05/02/17 05/02/17 Allergies Allergy/AdvReac Type Severity Reaction Status Date / Time amoxicillin [Amoxicillin] Allergy Anaphylaxis Verified 05/02/17 20:05 Review of Systems ROS Statement: Those systems with pertinent positive or pertinent negative responses have been documented in the HPI. ROS Other: All systems not noted in ROS Statement are negative. Past Medical History Past Medical History: Asthma History of Any Multi-Drug Resistant Organisms: None Reported Past Surgical History: No Surgical Hx Reported Additional Past Anesthesia/Blood Transfusion Reaction / Comment(s): no anesthesia or blood before Past Psychological History: No Psychological Hx Reported Smoking Status: Never smoker Past Alcohol Use History: None Reported Past Drug Use History: None Reported - Past Family History Father Family Medical History: Asthma General Exam Limitations: no limitations General appearance: alert, in no apparent distress Head exam: Present: atraumatic, normocephalic, normal inspection Neck exam: Present: normal inspection. Absent: tenderness, meningismus, lymphadenopathy Respiratory exam: Present: wheezes, decreased breath sounds. Absent: normal lung sounds bilaterally, respiratory distress, rales, rhonchi, stridor Cardiovascular Exam: Present: normal rhythm, tachycardia, normal heart sounds. Absent: systolic murmur, diastolic murmur, rubs, gallop, clicks GI/Abdominal exam: Present: soft, normal bowel sounds. Absent: distended, tenderness, guarding, rebound, rigid Back exam: Present: CVA tenderness (R). Absent: CVA tenderness (L) Neurological exam: Present: alert, oriented X3, CN II-XII intact Skin exam: Present: warm, dry, intact, normal color. Absent: rash Course Vital Signs 05/02/17 05/02/17 05/02/17 19:56 20:09 20:28 Temperature 98.5 F Pulse Rate 130 H Pulse Rate [ 117 H [employer] ] Respiratory 18 20 Rate Blood Pressure 135/89 O2 Sat by Pulse 98 Oximetry 05/02/17 05/02/17 05/02/17 20:35 21:21 21:26 Temperature Pulse Rate 115 H 112 H Pulse Rate [ Manager [employer] ] Respiratory 18 22 Rate Blood Pressure O2 Sat by Pulse 100 Oximetry 05/02/17 05/02/17 21:46 22:00 Temperature 98.3 F Pulse Rate 120 H 132 H Pulse Rate [ Manager Of [employer] ] Respiratory 22 Rate Blood Pressure 141/94 O2 Sat by Pulse 98 Oximetry EKG Findings - EKG Comments: EKG Findings:: EKG performed at 20:12 sinus tachycardia with rate of 115 SC 168 QRS 82 QT/QTC 326/450. Second EKG was performed at 22:20 sinus tachycardia with a rate of 152 SC 152 QRS 74 QT/QTC 228/362 Medical Decision Making - Lab Data Result diagrams: 05/02/17 20:30 05/02/17 20:30 Lab Results 05/02/17 05/02/17 05/02/17 Range/Units 20:30 20:30 20:30 WBC 10.3 (3.8-10.6) k/uL RBC 4.29 (3.80-5.40) m/uL Hgb 13.2 (11.4-16.0) gm/dL Hct 41.1 (34.0-46.0) % MCV 95.9 (80.0-100.0) fL MCH 30.8 (25.0-35.0) pg MCHC 32.1 (31.0-37.0) g/dL RDW 12.4 (11.5-15.5) % Plt Count 254 (150-450) k/uL Neutrophils % 65 % Lymphocytes % 23 % Monocytes % 7 % Eosinophils % 3 % Basophils % 1 % Neutrophils # 6.7 (1.3-7.7) k/uL Lymphocytes # 2.4 (1.0-4.8) k/uL Monocytes # 0.8 (0-1.0) k/uL Eosinophils # 0.3 (0-0.7) k/uL Basophils # 0.1 (0-0.2) k/uL PT 10.5 (9.0-12.0) sec INR 1.0 (<1.2) APTT 24.8 (22.0-30.0) sec D-Dimer 0.50 (<0.60) mg/L FEU Sodium 140 (137-145) mmol/L Potassium 3.8 (3.5-5.1) mmol/L Chloride 104 (98-107) mmol/L Carbon Dioxide 24 (22-30) mmol/L Anion Gap 12 mmol/L BUN 10 (7-17) mg/dL Creatinine 0.78 (0.52-1.04) mg/dL Est GFR (MDRD) Af Amer >60 (>60 ml/min/1.73 sqM) Est GFR (MDRD) Non-Af >60 (>60 ml/min/1.73 sqM) Glucose 85 (74-99) mg/dL Calcium 9.8 (8.4-10.2) mg/dL Magnesium 2.0 (1.6-2.3) mg/dL Total Bilirubin 0.2 (0.2-1.3) mg/dL AST 21 (14-36) U/L ALT 24 (9-52) U/L Alkaline Phosphatase 82 (38-126) U/L Troponin I (0.000-0.034) ng/mL Total Protein 8.2 (6.3-8.2) g/dL Albumin 4.7 (3.5-5.0) g/dL Urine Color Urine Appearance (Clear) Urine pH (5.0-8.0) Ur Specific Butner (1.001-1.035) Urine Protein (Negative) Urine Glucose (UA) (Negative) Urine Ketones (Negative) Urine Blood (Negative) Urine Nitrite (Negative) Urine Bilirubin (Negative) Urine Urobilinogen (<2.0) mg/dL Ur Leukocyte Esterase (Negative) Urine HCG, Qual (Not Detectd) Urine Opiates Screen (NotDetected) Ur Oxycodone Screen (NotDetected) Urine Methadone Screen (NotDetected) Ur Propoxyphene Screen (NotDetected) Ur Barbiturates Screen (NotDetected) U Tricyclic Antidepress (NotDetected) Ur Phencyclidine Scrn (NotDetected) Ur Amphetamines Screen (NotDetected) U Methamphetamines Scrn (NotDetected) U Benzodiazepines Scrn (NotDetected) Urine Cocaine Screen (NotDetected) U Marijuana (THC) Screen (NotDetected) 05/02/17 05/02/17 05/02/17 Range/Units 20:30 20:35 20:35 WBC (3.8-10.6) k/uL RBC (3.80-5.40) m/uL Hgb (11.4-16.0) gm/dL Hct (34.0-46.0) % MCV (80.0-100.0) fL MCH (25.0-35.0) pg MCHC (31.0-37.0) g/dL RDW (11.5-15.5) % Plt Count (150-450) k/uL Neutrophils % % Lymphocytes % % Monocytes % % Eosinophils % % Basophils % % Neutrophils # (1.3-7.7) k/uL Lymphocytes # (1.0-4.8) k/uL Monocytes # (0-1.0) k/uL Eosinophils # (0-0.7) k/uL Basophils # (0-0.2) k/uL PT (9.0-12.0) sec INR (<1.2) APTT (22.0-30.0) sec D-Dimer (<0.60) mg/L FEU Sodium (137-145) mmol/L Potassium (3.5-5.1) mmol/L Chloride (98-107) mmol/L Carbon Dioxide (22-30) mmol/L Anion Gap mmol/L BUN (7-17) mg/dL Creatinine (0.52-1.04) mg/dL Est GFR (MDRD) Af Amer (>60 ml/min/1.73 sqM) Est GFR (MDRD) Non-Af (>60 ml/min/1.73 sqM) Glucose (74-99) mg/dL Calcium (8.4-10.2) mg/dL Magnesium (1.6-2.3) mg/dL Total Bilirubin (0.2-1.3) mg/dL AST (14-36) U/L ALT (9-52) U/L Alkaline Phosphatase (38-126) U/L Troponin I <0.012 (0.000-0.034) ng/mL Total Protein (6.3-8.2) g/dL Albumin (3.5-5.0) g/dL Urine Color Light Yellow Urine Appearance Clear (Clear) Urine pH 6.5 (5.0-8.0) Ur Specific Butner 1.010 (1.001-1.035) Urine Protein Negative (Negative) Urine Glucose (UA) Negative (Negative) Urine Ketones Negative (Negative) Urine Blood Negative (Negative) Urine Nitrite Negative (Negative) Urine Bilirubin Negative (Negative) Urine Urobilinogen <2.0 (<2.0) mg/dL Ur Leukocyte Esterase Negative (Negative) Urine HCG, Qual Not Detected (Not Detectd) Urine Opiates Screen (NotDetected) Ur Oxycodone Screen (NotDetected) Urine Methadone Screen (NotDetected) Ur Propoxyphene Screen (NotDetected) Ur Barbiturates Screen (NotDetected) U Tricyclic Antidepress (NotDetected) Ur Phencyclidine Scrn (NotDetected) Ur Amphetamines Screen (NotDetected) U Methamphetamines Scrn (NotDetected) U Benzodiazepines Scrn (NotDetected) Urine Cocaine Screen (NotDetected) U Marijuana (THC) Screen (NotDetected) 05/02/17 Range/Units 20:35 WBC (3.8-10.6) k/uL RBC (3.80-5.40) m/uL Hgb (11.4-16.0) gm/dL Hct (34.0-46.0) % MCV (80.0-100.0) fL MCH (25.0-35.0) pg MCHC (31.0-37.0) g/dL RDW (11.5-15.5) % Plt Count (150-450) k/uL Neutrophils % % Lymphocytes % % Monocytes % % Eosinophils % % Basophils % % Neutrophils # (1.3-7.7) k/uL Lymphocytes # (1.0-4.8) k/uL Monocytes # (0-1.0) k/uL Eosinophils # (0-0.7) k/uL Basophils # (0-0.2) k/uL PT (9.0-12.0) sec INR (<1.2) APTT (22.0-30.0) sec D-Dimer (<0.60) mg/L FEU Sodium (137-145) mmol/L Potassium (3.5-5.1) mmol/L Chloride (98-107) mmol/L Carbon Dioxide (22-30) mmol/L Anion Gap mmol/L BUN (7-17) mg/dL Creatinine (0.52-1.04) mg/dL Est GFR (MDRD) Af Amer (>60 ml/min/1.73 sqM) Est GFR (MDRD) Non-Af (>60 ml/min/1.73 sqM) Glucose (74-99) mg/dL Calcium (8.4-10.2) mg/dL Magnesium (1.6-2.3) mg/dL Total Bilirubin (0.2-1.3) mg/dL AST (14-36) U/L ALT (9-52) U/L Alkaline Phosphatase (38-126) U/L Troponin I (0.000-0.034) ng/mL Total Protein (6.3-8.2) g/dL Albumin (3.5-5.0) g/dL Urine Color Urine Appearance (Clear) Urine pH (5.0-8.0) Ur Specific Butner (1.001-1.035) Urine Protein (Negative) Urine Glucose (UA) (Negative) Urine Ketones (Negative) Urine Blood (Negative) Urine Nitrite (Negative) Urine Bilirubin (Negative) Urine Urobilinogen (<2.0) mg/dL Ur Leukocyte Esterase (Negative) Urine HCG, Qual (Not Detectd) Urine Opiates Screen Not Detected (NotDetected) Ur Oxycodone Screen Not Detected (NotDetected) Urine Methadone Screen Not Detected (NotDetected) Ur Propoxyphene Screen Not Detected (NotDetected) Ur Barbiturates Screen Not Detected (NotDetected) U Tricyclic Antidepress Not Detected (NotDetected) Ur Phencyclidine Scrn Not Detected (NotDetected) Ur Amphetamines Screen Not Detected (NotDetected) U Methamphetamines Scrn Not Detected (NotDetected) U Benzodiazepines Scrn Not Detected (NotDetected) Urine Cocaine Screen Not Detected (NotDetected) U Marijuana (THC) Screen Not Detected (NotDetected) Disposition Clinical Impression: Dyspnea, Tachycardia Disposition: ADMITTED IP TO THIS [facility] Condition: Stable Referrals: Hyacinth Montero MD [Primary Care Provider] - 1-2 days
[2017-05-02 20:38] LABS: Basophils # (A) 0.1 k/uL (0-0.2); Basophils % (A) 1 %; CH 30.7; CHCM 32.1; Eosinophils # (A) 0.3 k/uL (0-0.7); Eosinophils % (A) 3 %; HCT 41.1 % (34.0-46.0); HDW 1.98; HGB 13.2 gm/dL (11.4-16.0); Luc # (Auto) 0.19; Luc % (Auto) 2; Lymphocytes # (A) 2.4 k/uL (1.0-4.8); Lymphocytes % (A) 23 %; MCH 30.8 pg (25.0-35.0); MCHC 32.1 g/dL (31.0-37.0); MCV 95.9 fL (80.0-100.0); Mean Platelet Volume 7.2; Monocytes # (A) 0.8 k/uL (0-1.0); Monocytes % (A) 7 %; Neutrophils # (A) 6.7 k/uL (1.3-7.7); Neutrophils % (A) 65 %; RBC 4.29 m/uL (3.80-5.40); RDW 12.4 % (11.5-15.5); WBC 10.3 k/uL (3.8-10.6); WBC (Perox) 9.88
[2017-05-02 20:48] LABS: Appearance,Urine Clear (Clear); Bilirubin,Urine Negative (Negative); Glucose,Urine (UA) Negative (Negative); Ketones,Urine Negative (Negative); Leukocyte Esterase,Urine Negative (Negative); Nitrite,Urine Negative (Negative); PH, Urine 6.5 (5.0-8.0); Protein,Urine Negative (Negative); UA Billing (MACRO vs. MICRO) CHEM; Urobilinogen,Urine <2.0 mg/dL (<2.0)
[2017-05-02 20:50] LABS: ALT 24 U/L (9-52); AST 21 U/L (14-36); Alkaline Phosphatase 82 U/L (38-126); Anion Gap 12 mmol/L; Blood Urea Nitrogen 10 mg/dL (7-17); Calcium 9.8 mg/dL (8.4-10.2); Carbon Dioxide 24 mmol/L (22-30); Chloride 104 mmol/L (98-107); Glucose 85 mg/dL (74-99); Non-African American GFR(MDRD) >60 (>60 ml/min/1.73 sqM); Potassium 3.8 mmol/L (3.5-5.1); Sodium 140 mmol/L (137-145); Total Bilirubin 0.2 mg/dL (0.2-1.3); Total Protein 8.2 g/dL (6.3-8.2)
[2017-05-02 20:52] LABS: Partial Thromboplastin Time 24.8 sec (22.0-30.0); Prothrombin Time 10.5 sec (9.0-12.0)
[2017-05-02] MEDS ORDERED: methylPREDNISolone SOD SUCCI 125 MG/2 ML VIAL IV STA (21:09)
[2017-05-02] MEDS ORDERED: IPRATROPIUM-ALBUTEROL 3 ML NEB INHALATION STA (21:09)
--- NOTE | 2017-05-02 21:11 | XR ---
EXAMINATION TYPE: XR chest 2V DATE OF EXAM: 05/02/2017 COMPARISON: NONE HISTORY: Difficulty breathing TECHNIQUE: Frontal and lateral views of the chest are obtained. FINDINGS: Heart and mediastinum are normal. Lungs are clear of consolidation. Diaphragm is normal. B kamryn thorax is intact. There are small linear densities in the midlung schulte. IMPRESSION: There is evidence for minimal subsegmental atelectasis or scarring that is unchanged com pared to old exam. Normal heart.
[2017-05-02] MEDS ORDERED: traMADol 50 MG TAB PO STA (21:21)
[2017-05-02] MEDS ORDERED: ONDANSETRON 4 MG/2 ML VIAL IVP STA (22:47)
[2017-05-02] MEDS ORDERED: MORPHINE SULFATE 2 MG/ML SYRINGE IVP ONE (22:47)
[2017-05-02] MEDS: ALBUTEROL NEBULIZED 2.5 MG/3 ML INHALATION PRN (23:43)
[2017-05-03] MEDS ORDERED: methylPREDNISolone SOD SUCCI 125 MG/2 ML VIAL IV SCH
[2017-05-03] MEDS: LORazepam 0.5 MG TAB PO PRN (00:31)
[2017-05-03] MEDS: MORPHINE SULFATE 10 MG/ML SYRINGE IV PRN ×2 (00:31→11:34)
[2017-05-03 00:44] LABS: Glucose,Whole Blood 152 mg/dL (75-99)
[2017-05-03] MEDS ORDERED: LORazepam 2 MG/ML INJ ONE (00:49)
[2017-05-03] MEDS ORDERED: LORazepam 2 MG/ML INJ IV STA (00:49)
[2017-05-03] MEDS ORDERED: methylPREDNISolone SOD SUCCI 125 MG/2 ML VIAL IV STA (00:58)
[2017-05-03] MEDS: methylPREDNISolone SOD SUCCI 125 MG/2 ML VIAL IV SCH ×2 (01:04→16:30)
[2017-05-03 04:24] LABS: CH 29.9; CHCM 31.2; HCT 37.3 % (34.0-46.0); HGB 11.6 gm/dL (11.4-16.0); MCHC 31.1 g/dL (31.0-37.0); MCV 96.2 fL (80.0-100.0); Mean Platelet Volume 7.7; RBC 3.88 m/uL (3.80-5.40); RDW 13.8 % (11.5-15.5); WBC 10.6 k/uL (3.8-10.6)
[2017-05-03 04:42] LABS: Anion Gap 11 mmol/L; Blood Urea Nitrogen 8 mg/dL (7-17); Calcium 9.1 mg/dL (8.4-10.2); Carbon Dioxide 22 mmol/L (22-30); Chloride 107 mmol/L (98-107); Glucose 178 mg/dL (74-99); Magnesium 1.7 mg/dL (1.6-2.3); Non-African American GFR(MDRD) >60 (>60 ml/min/1.73 sqM); Phosphorus 4.5 mg/dL (2.5-4.5); Sodium 140 mmol/L (137-145)
[2017-05-03] MEDS: BUDESONIDE 0.5 MG/2 ML NEBU INHALATION SCH ×2 (07:25→20:04)
[2017-05-03] MEDS: ALBUTEROL NEBULIZED 2.5 MG/3 ML INHALATION PRN (07:25)
[2017-05-03] MEDS ORDERED: HEPARIN SODIUM,PORCINE 5,000 UNIT/ML 1 ML VIAL SQ SCH (09:00)
[2017-05-03 09:30] VITALS: BMI 19.0
[2017-05-03] MEDS: FAMOTIDINE 20 MG TAB PO SCH (09:31)
[2017-05-03] MEDS: MONTELUKAST 10 MG TAB PO SCH (09:31)
[2017-05-03] MEDS: HYDROcodone/APAP 5-325MG 1 EACH TAB PO PRN ×3 (10:10→23:27)
[2017-05-03] MEDS: ONDANSETRON 4 MG/2 ML VIAL IVP PRN (10:36)
--- NOTE | 2017-05-03 10:39 | P.CNPUL ---
History of Present Illness Consult date: 05/03/17 Reason for consult: dyspnea, asthma Chief complaint: Shortness of breath History of present illness: This is a 22-year-old female who is well-known to [facility]. The patient has a history of asthma. The patient was seen in our office on 2016 complaining of shortness of breath. The patient was given steroid taper. She did take this. She was supposed to be on Breo, Singulair, Ventolin, Xolair , albuterol nebulizer. The patient states that she was not using her inhaler because she was at work. She was also not using her nebulizer. The patient was on Qvar in the past as well and is not taking that. The patient stopped doing Xolair because her insurance changed and she states it was not covered. She was also not taking Briel. The patient is complaining of a dry nonproductive cough. She denies fevers and chills. She is complaining of chest tightness. She states she would like to start back on Xolair. The patient was transferred to the ICU overnight due to tachycardia and tachypnea. Review of Systems All systems: negative Past Medical History Past Medical History: Asthma History of Any Multi-Drug Resistant Organisms: None Reported Past Surgical History: No Surgical Hx Reported Additional Past Anesthesia/Blood Transfusion Reaction / Comment(s): no anesthesia or blood before Past Psychological History: No Psychological Hx Reported Smoking Status: Never smoker Past Alcohol Use History: None Reported Past Drug Use History: None Reported - Past Family History Father Family Medical History: Asthma Medications and Allergies Home Medications Medication Instructions Recorded Confirmed Type Albuterol Inhaler [Ventolin Hfa 2 puff INHALATION RT-Q4H PRN 11/17/16 05/02/17 History Inhaler] Montelukast [Singulair] 10 mg PO QAM 01/22/17 05/02/17 History Albuterol Nebulized [Ventolin 2.5 mg INHALATION RT-Q4H PRN 05/02/17 05/02/17 History Nebulized] LORazepam [Ativan] 0.5 mg PO DAILY PRN 05/02/17 05/02/17 History predniSONE See Taper PO DAILY 05/02/17 05/02/17 History Allergies Allergy/AdvReac Type Severity Reaction Status Date / Time amoxicillin [Amoxicillin] Allergy Anaphylaxis Verified 05/02/17 20:05 Physical Exam Osteopathic Statement: *. No significant issues noted on an osteopathic structural exam other than those noted in the History and Physical/Consult. Vitals: Vital Signs Temp Pulse Pulse Resp BP BP Pulse Ox 05/03/17 10:00 91 26 H 116/81 99 05/03/17 09:00 90 16 112/68 98 05/03/17 08:00 97.7 F 88 18 114/74 97 05/03/17 07:40 95 05/03/17 07:29 92 98 05/03/17 07:00 116 H 22 103/57 05/03/17 06:00 85 14 109/60 97 05/03/17 05:30 85 15 117/69 98 05/03/17 05:00 92 14 100/64 98 05/03/17 04:30 93 16 100/64 97 05/03/17 04:00 98.3 F 90 117 H 14 111/66 98 05/03/17 03:30 99 14 109/64 96 05/03/17 03:00 104 H 16 129/60 97 05/03/17 02:30 109 H 15 116/64 99 05/03/17 02:00 112 H 18 123/74 98 05/03/17 01:30 109 H 25 H 144/77 99 05/03/17 01:16 99 05/03/17 00:09 97.1 F L 129 H 24 147/66 100 05/02/17 23:54 124 H 05/02/17 23:47 97.7 F 83 15 110/69 97 05/02/17 23:43 120 H 05/02/17 23:17 127 H 26 H 138/88 100 05/02/17 22:00 98.3 F 132 H 22 141/94 98 05/02/17 21:46 120 H 05/02/17 21:26 112 H 05/02/17 21:21 115 H 22 100 05/02/17 20:35 18 05/02/17 20:28 20 05/02/17 20:09 117 H 05/02/17 19:56 98.5 F 130 H 18 135/89 98 Intake and Output 05/02/17 05/03/17 05/03/17 22:59 06:59 14:59 Intake Total 200 Output Total 0 150 Balance 0 50 Intake: Oral 200 Output: Urine 0 150 Other: Voiding Method Toilet # Voids 1 Weight 47.174 kg 47.17 kg Gen.: Patient is alert and oriented 3, no acute distress Cardiovascular: Regular rate and rhythm, S1/S2 Lungs: Diminished breath sounds bilaterally with scattered expiratory wheezing Abdomen: Soft nontender nondistended positive bowel sounds Extremities: No edema Results - Laboratory Findings CBC and BMP: 05/03/17 04:09 05/03/17 04:09 PT/INR, D-dimer PT 10.5 sec (9.0-12.0) 05/02/17 20:30 INR 1.0 (<1.2) 05/02/17 20:30 D-Dimer 0.50 mg/L FEU (<0.60) 05/02/17 20:30 Abnormal lab findings: Abnormal Labs 05/03/17 05/03/17 00:41 04:09 Glucose 178 H POC Glucose (mg/dL) 152 H - Diagnostic Findings Chest x-ray: report reviewed, image reviewed Assessment and Plan Assessment: Acute hypoxemia Acute exacerbation of asthma, severe persistent, ALLERGIC Environmental ALLERGIES Dyspnea Cough Hyperglycemia likely secondary to steroids O2 to maintain saturation greater than or equal to 90% IV Solu-Medrol Pulmicort Duo nebs Incentive spirometry and pulmonary hygiene Okay to transfer out of the ICU. Initiate insulin sliding scale GI and DVT prophylaxis Thank you for this consultation we'll continue to follow along Patient can be restarted on Xolair, will arrange through our office
--- NOTE | 2017-05-03 11:05 | P.CRDCN ---
History of Present Illness Consult date: 05/03/17 Chief complaint: Tachycardia History of present illness: This is a pleasant 22 year-old female patient with a past medical history significant for asthma which was under control according to her for long time and she was receiving Xolair for asthma but she has been not taking the medication lately for insurance issue presented to the emergency room complaining of dyspnea. The patient described resting dyspnea without orthopnea and without any PND. No anginal chest discomfort. No fever and no chills but she has been experiencing coughing and wheezing. The patient was seen by her western philosophy professor and she was diagnosed with asthma exacerbation. We get involved in the care of the patient because of tachycardia. With the patient arrived the hospital the heart rate was about 130 bpm and it was sinus tachycardia. No other significant ST or T-wave abnormalities. Currently the heart rate has been maintained between 80 bpm to 90 beats per minutes. The patient dyspnea has improved significantly. The TSH was checked and came in to be unremarkable. The patient is not aware of any prior cardiac history and never seen any aviation technician aircraft in the past. Past Medical History Past Medical History: Asthma History of Any Multi-Drug Resistant Organisms: None Reported Past Surgical History: No Surgical Hx Reported Additional Past Anesthesia/Blood Transfusion Reaction / Comment(s): no anesthesia or blood before Past Psychological History: No Psychological Hx Reported Smoking Status: Never smoker Past Alcohol Use History: None Reported Past Drug Use History: None Reported - Past Family History Father Family Medical History: Asthma Medications and Allergies Home Medications Medication Instructions Recorded Confirmed Type Albuterol Inhaler [Ventolin Hfa 2 puff INHALATION RT-Q4H PRN 11/17/16 05/02/17 History Inhaler] Montelukast [Singulair] 10 mg PO QAM 01/22/17 05/02/17 History Albuterol Nebulized [Ventolin 2.5 mg INHALATION RT-Q4H PRN 05/02/17 05/02/17 History Nebulized] LORazepam [Ativan] 0.5 mg PO DAILY PRN 05/02/17 05/02/17 History predniSONE See Taper PO DAILY 05/02/17 05/02/17 History Allergies Allergy/AdvReac Type Severity Reaction Status Date / Time amoxicillin [Amoxicillin] Allergy Anaphylaxis Verified 05/02/17 20:05 Physical Exam Vitals: Vital Signs Temp Pulse Pulse Resp BP BP Pulse Ox 05/03/17 10:00 91 26 H 116/81 99 05/03/17 09:00 90 16 112/68 98 05/03/17 08:00 97.7 F 88 18 114/74 97 05/03/17 07:40 95 05/03/17 07:29 92 98 05/03/17 07:00 116 H 22 103/57 05/03/17 06:00 85 14 109/60 97 05/03/17 05:30 85 15 117/69 98 05/03/17 05:00 92 14 100/64 98 05/03/17 04:30 93 16 100/64 97 05/03/17 04:00 98.3 F 90 117 H 14 111/66 98 05/03/17 03:30 99 14 109/64 96 05/03/17 03:00 104 H 16 129/60 97 05/03/17 02:30 109 H 15 116/64 99 05/03/17 02:00 112 H 18 123/74 98 05/03/17 01:30 109 H 25 H 144/77 99 05/03/17 01:16 99 05/03/17 00:09 97.1 F L 129 H 24 147/66 100 05/02/17 23:54 124 H 05/02/17 23:47 97.7 F 83 15 110/69 97 05/02/17 23:43 120 H 05/02/17 23:17 127 H 26 H 138/88 100 05/02/17 22:00 98.3 F 132 H 22 141/94 98 05/02/17 21:46 120 H 05/02/17 21:26 112 H 05/02/17 21:21 115 H 22 100 05/02/17 20:35 18 05/02/17 20:28 20 05/02/17 20:09 117 H 05/02/17 19:56 98.5 F 130 H 18 135/89 98 Intake and Output 05/02/17 05/03/17 05/03/17 22:59 06:59 14:59 Intake Total 200 Output Total 0 150 Balance 0 50 Intake: Oral 200 Output: Urine 0 150 Other: Voiding Method Toilet # Voids 1 Weight 47.174 kg 47.17 kg - Constitutional General appearance: no acute distress - Respiratory Respiratory: bilateral: wheezing - Cardiovascular Rhythm: regular Heart sounds: normal: S1, S2 Results 05/03/17 04:09 05/03/17 04:09 Cardiac Enzymes 05/02/17 05/02/17 Range/Units 20:30 20:30 AST 21 (14-36) U/L Troponin I <0.012 (0.000-0.034) ng/mL Coagulation 05/02/17 Range/Units 20:30 PT 10.5 (9.0-12.0) sec APTT 24.8 (22.0-30.0) sec CBC 05/02/17 05/03/17 Range/Units 20:30 04:09 WBC 10.3 10.6 (3.8-10.6) k/uL RBC 4.29 3.88 (3.80-5.40) m/uL Hgb 13.2 11.6 (11.4-16.0) gm/dL Hct 41.1 37.3 (34.0-46.0) % Plt Count 254 224 (150-450) k/uL Comprehensive Metabolic Panel 05/02/17 05/03/17 Range/Units 20:30 04:09 Sodium 140 140 (137-145) mmol/L Potassium 3.8 4.0 (3.5-5.1) mmol/L Chloride 104 107 (98-107) mmol/L Carbon Dioxide 24 22 (22-30) mmol/L BUN 10 8 (7-17) mg/dL Creatinine 0.78 0.60 (0.52-1.04) mg/dL Glucose 85 178 H (74-99) mg/dL Calcium 9.8 9.1 (8.4-10.2) mg/dL AST 21 (14-36) U/L ALT 24 (9-52) U/L Alkaline Phosphatase 82 (38-126) U/L Total Protein 8.2 (6.3-8.2) g/dL Albumin 4.7 (3.5-5.0) g/dL Current Medications Generic Name Dose Route Start Last Admin Trade Name Freq PRN Reason Stop Dose Admin Hydrocodone Bitart/Acetaminophen 1 each 05/02/17 23:07 05/03/17 10:10 Hyde 5-325 PO 1 each Q4HR PRN Administration Moderate Pain Albuterol Sulfate 2.5 mg 05/02/17 23:11 05/03/17 07:25 Ventolin Nebulized INHALATION 2.5 mg RT-QID PRN Administration Shortness Of Breath Or Wheezing Albuterol/Ipratropium 3 ml 05/03/17 12:00 Duoneb 0.5 Mg-3 Mg/3 Ml Soln INHALATION RT-Q4H [facility] Budesonide 0.5 mg 05/03/17 08:00 05/03/17 07:25 Pulmicort INHALATION 0.5 mg RT-BID [facility] Administration Famotidine 20 mg 05/03/17 09:00 05/03/17 09:31 Pepcid PO 20 mg BID ASHLI Administration Heparin Sodium (Porcine) 5,000 unit 05/03/17 16:00 Heparin SQ Q8HR [facility] Insulin Human Lispro 0 unit 05/03/17 12:30 Humalog SQ ACHS [facility] Protocol Lorazepam 0.5 mg 05/02/17 23:08 05/03/17 00:31 Ativan PO 0.5 mg DAILY PRN Administration Anxiety Methylprednisolone Sodium Succinate 60 mg 05/03/17 08:00 05/03/17 01:04 Solu-Medrol IV 60 mg Q8HR [facility] Administration Montelukast Sodium 10 mg 05/03/17 09:00 05/03/17 09:31 Singulair PO 10 mg QAM [facility] Administration Morphine Sulfate 4 mg 05/02/17 23:07 05/03/17 00:31 Morphine Sulfate (Inj) IV 4 mg Q4HR PRN Administration Severe Pain Ondansetron HCl 4 mg 05/03/17 10:24 05/03/17 10:36 Zofran IVP 4 mg Q6HR PRN Administration Nausea And Vomiting Intake and Output 05/02/17 05/03/17 05/03/17 22:59 06:59 14:59 Intake Total 200 Output Total 0 150 Balance 0 50 Intake: Oral 200 Output: Urine 0 150 Other: Voiding Method Toilet # Voids 1 Weight 47.174 kg 47.17 kg 05/03/17 04:09 05/03/17 04:09 Assessment and Plan Assessment: This is a pleasant 22-year-old -English female patient was admitted to the hospital with asthma exacerbation and she is feeling already better. She was in sinus tachycardia which is likely secondary to her acute respiratory distress but the sinus tachycardia has improved when shortness of breath has improved. From the cardiovascular standpoint overview, I would not recommend any further cardiac workup. We'll see the patient on when necessary case.
[2017-05-03] MEDS: IPRATROPIUM-ALBUTEROL 3 ML NEB INHALATION SCH ×4 (11:18→23:56)
[2017-05-03 12:41] LABS: Glucose,Whole Blood 155 mg/dL (75-99)
[2017-05-03] MEDS: INSULIN LISPRO (humaLOG) 300 UNIT/3 ML VIAL SQ SCH ×2 (12:47→17:35)
[2017-05-03] MEDS: HEPARIN SODIUM,PORCINE 5,000 UNIT/ML 1 ML VIAL SQ SCH (16:30)
[2017-05-03 17:36] LABS: Glucose,Whole Blood 167 mg/dL (75-99)
--- NOTE | 2017-05-03 22:43 | P.HPIM ---
History of Present Illness H&P Date: 05/03/17 Chief Complaint: Shortness of breath Patient is a 22-year-old female with a known history of asthma since childhood on follow with her pulmonary clinic with a Dr. Phillips came to the hospital the complains of shortness of breath and chest tightness and dry cough. Patient was recently seen at Dr. Phillips's office due to asthma exacerbation and was placed on Indocin steroids. Patient used to be on Qvar which she is not been taking and also noncompliance with her Xolair injections.Patient states that she's been doing treatments and use her inhaler more than usual and states is not alleviating her symptoms. Patient also complains of right flank pain with dysuria. Denies fever, chills. She states that she has been admitted several times for her asthma. Denies any calf pain, calf swelling, recent traveling or any history of DVT or PE. Patient does admit to palpitations, and the heart is racing at this time. Patient was initially admitted to observation unit and lateral patient became tachypneic and tachycardia and eventually was transferred to MICU. Currently patient is more awake and oriented and tachycardia improved. EKG showed sinus tachycardia Chest x-ray showed subsegmental atelectasis unchanged from previous study Review of Systems Constitutional: Patient denies any fever or chills . No generalized weakness or weight loss. Abdomen: Patient denied nausea vomiting and diarrhea and abdominal pain. Cardiovascular: Patient denies any chest pain or short of breath no palpitations. Respiratory: Shortness of breath and cough with dry. No sputum production. Neurologic: Patient denied any numbness or tingling headache. Musculoskeletal: Patient denies any complaints of joint swelling or deformity. Skin: Negative Psychiatric: Negative Endocrine: No heat or cold intolerance. No recent weight gain. Genitourinary: No dysuria or hematuria. All other 14 point ROS negative except the above Past Medical History Past Medical History: Asthma History of Any Multi-Drug Resistant Organisms: None Reported Past Surgical History: No Surgical Hx Reported Additional Past Anesthesia/Blood Transfusion Reaction / Comment(s): no anesthesia or blood before Past Psychological History: No Psychological Hx Reported Smoking Status: Never smoker Past Alcohol Use History: None Reported Past Drug Use History: None Reported - Past Family History Father Family Medical History: Asthma Medications and Allergies Home Medications Medication Instructions Recorded Confirmed Type Albuterol Inhaler [Ventolin Hfa 2 puff INHALATION RT-Q4H PRN 11/17/16 05/02/17 History Inhaler] Montelukast [Singulair] 10 mg PO QAM 01/22/17 05/02/17 History Albuterol Nebulized [Ventolin 2.5 mg INHALATION RT-Q4H PRN 05/02/17 05/02/17 History Nebulized] LORazepam [Ativan] 0.5 mg PO DAILY PRN 05/02/17 05/02/17 History predniSONE See Taper PO DAILY 05/02/17 05/02/17 History Allergies Allergy/AdvReac Type Severity Reaction Status Date / Time amoxicillin [Amoxicillin] Allergy Anaphylaxis Verified 05/02/17 20:05 Physical Exam Vitals: Vital Signs Temp Pulse Pulse Resp BP BP Pulse Ox 05/03/17 10:00 91 26 H 116/81 99 05/03/17 09:00 90 16 112/68 98 05/03/17 08:00 97.7 F 88 18 114/74 97 05/03/17 07:40 95 05/03/17 07:29 92 98 05/03/17 07:00 116 H 22 103/57 05/03/17 06:00 85 14 109/60 97 05/03/17 05:30 85 15 117/69 98 05/03/17 05:00 92 14 100/64 98 05/03/17 04:30 93 16 100/64 97 05/03/17 04:00 98.3 F 90 117 H 14 111/66 98 05/03/17 03:30 99 14 109/64 96 05/03/17 03:00 104 H 16 129/60 97 05/03/17 02:30 109 H 15 116/64 99 05/03/17 02:00 112 H 18 123/74 98 05/03/17 01:30 109 H 25 H 144/77 99 05/03/17 01:16 99 05/03/17 00:09 97.1 F L 129 H 24 147/66 100 05/02/17 23:54 124 H 05/02/17 23:47 97.7 F 83 15 110/69 97 05/02/17 23:43 120 H 05/02/17 23:17 127 H 26 H 138/88 100 05/02/17 22:00 98.3 F 132 H 22 141/94 98 05/02/17 21:46 120 H 05/02/17 21:26 112 H 05/02/17 21:21 115 H 22 100 05/02/17 20:35 18 05/02/17 20:28 20 05/02/17 20:09 117 H 05/02/17 19:56 98.5 F 130 H 18 135/89 98 Intake and Output 05/02/17 05/03/17 05/03/17 22:59 06:59 14:59 Intake Total 200 Output Total 0 150 Balance 0 50 Intake: Oral 200 Output: Urine 0 150 Other: Voiding Method Toilet # Voids 1 Weight 47.174 kg 47.17 kg PHYSICAL EXAMINATION: Patient is lying in the bed comfortably, no acute distress, awake alert and oriented. Anxious. HEENT: Normocephalic. Neck is supple. Pupils reactive. Nostrils clear. Oral cavity is moist. Ears reveal no drainage. Neck reveals no JVD, carotid bruits, or thyromegaly. CHEST EXAMINATION: Trachea is central. Symmetrical expansion. Bilateral diminished air entry and wheezing expiratory positive no rhonchi CARDIAC: Normal S1, S2 with no gallops. No murmurs . Tachycardia sinus ABDOMEN: Soft. Bowel sounds normal. No organomegaly. No abdominal bruits. Extremities: reveal no edema. No clubbing or cyanosis Neurologically awake, alert, oriented x3 with well-coordinated movements. No focal deficits noted Skin: No rash or skin lesions. Psychiatric: Cooperative. Nonsuicidal Musculoskeletal: No joint swelling or deformity. Normal range of motion. Results CBC & Chem 7: 05/03/17 04:09 05/03/17 04:09 Labs: Abnormal Lab Results - Last 24 Hours (Table) 05/03/17 05/03/17 Range/Units 00:41 04:09 Glucose 178 H (74-99) mg/dL POC Glucose (mg/dL) 152 H (75-99) mg/dL Thrombosis Risk Factor Assmnt - Choose All That Apply Any of the Below Risk Factors Present?: No Other Risk Factors: No Thrombosis Risk Factor Assessment Level: Very Low Risk Assessment and Plan Assessment: #1 acute asthma exacerbation, severe persistent #2 sinus tachycardia. TSH within normal limits #3 ALLERGIC asthma on Xolair injections #4 non-compliance with medications due to insurance issues Plan: Patient will be continued on IV Solu-Medrol, breathing treatments and Pulmicort twice a day. We'll continue the telemetry monitoring. Cardiology and pulmonary is on board. We'll continue the current management and further recommendations based on the clinical course. Time with Patient: Greater than 30
[2017-05-04] MEDS: methylPREDNISolone SOD SUCCI 125 MG/2 ML VIAL IV SCH ×2 (01:54→08:03)
[2017-05-04] MEDS: HEPARIN SODIUM,PORCINE 5,000 UNIT/ML 1 ML VIAL SQ SCH ×4 (01:54→23:36)
[2017-05-04] MEDS: FAMOTIDINE 20 MG TAB PO SCH ×3 (01:54→21:13)
[2017-05-04] MEDS: INSULIN LISPRO (humaLOG) 300 UNIT/3 ML VIAL SQ SCH ×3 (01:58→12:37)
[2017-05-04 02:02] LABS: Glucose,Whole Blood 146 mg/dL (75-99)
[2017-05-04] MEDS: IPRATROPIUM-ALBUTEROL 3 ML NEB INHALATION SCH ×6 (03:30→23:42)
[2017-05-04] MEDS: BUDESONIDE 0.5 MG/2 ML NEBU INHALATION SCH ×2 (07:22→19:40)
[2017-05-04 07:28] LABS: Glucose,Whole Blood 146 mg/dL (75-99)
[2017-05-04] MEDS: HYDROcodone/APAP 5-325MG 1 EACH TAB PO PRN ×3 (08:08→21:13)
[2017-05-04 09:21] LABS: CH 30.5; HCT 35.9 % (34.0-46.0); HDW 1.98; HGB 10.9 gm/dL (11.4-16.0); MCH 30.2 pg (25.0-35.0); MCHC 30.5 g/dL (31.0-37.0); MCV 98.9 fL (80.0-100.0); Mean Platelet Volume 7.1; RBC 3.63 m/uL (3.80-5.40); RDW 12.6 % (11.5-15.5); WBC 12.8 k/uL (3.8-10.6)
[2017-05-04 09:33] LABS: Anion Gap 9 mmol/L; Blood Urea Nitrogen 9 mg/dL (7-17); Calcium 9.6 mg/dL (8.4-10.2); Carbon Dioxide 25 mmol/L (22-30); Chloride 105 mmol/L (98-107); Glucose 132 mg/dL (74-99); Non-African American GFR(MDRD) >60 (>60 ml/min/1.73 sqM); Phosphorus 4.1 mg/dL (2.5-4.5); Potassium 4.4 mmol/L (3.5-5.1); Sodium 139 mmol/L (137-145)
[2017-05-04] MEDS: MONTELUKAST 10 MG TAB PO SCH (09:55)
--- NOTE | 2017-05-04 10:18 | P.PN ---
Subjective Progress Note Date: 05/04/17 Principal diagnosis: AE Asthma Patient seen and examined. Patient states she is feeling much better. She still does get short of breath with exertion. She states she still has some chest tightness. Objective - Vital Signs Vital signs: Vital Signs Temp 97.4 F L 05/04/17 07:00 Pulse 72 05/04/17 07:43 Resp 16 05/04/17 07:00 BP 118/71 05/04/17 07:00 Pulse Ox 97 05/04/17 07:00 Intake & Output 05/03/17 05/04/17 05/04/17 18:59 06:59 18:59 Intake Total 200 150 Output Total 600 Balance -400 150 Weight 47.17 kg Intake: Oral 200 150 Output: Urine 600 Other: Voiding Method Toilet Toilet - Exam Gen.: Patient is alert and oriented 3, no acute distress Cardiovascular: Regular rate and rhythm, S1/S2 Lungs: Diminished breath sounds bilaterally with scattered expiratory wheezing Abdomen: Soft nontender nondistended positive bowel sounds Extremities: No edema - Labs CBC & Chem 7: 05/04/17 09:02 05/04/17 09:02 Labs: Abnormal Lab Results - Last 24 Hours (Table) 05/03/17 05/03/17 05/04/17 Range/Units 12:39 17:34 01:57 WBC (3.8-10.6) k/uL RBC (3.80-5.40) m/uL Hgb (11.4-16.0) gm/dL MCHC (31.0-37.0) g/dL Glucose (74-99) mg/dL POC Glucose (mg/dL) 155 H 167 H 146 H (75-99) mg/dL 05/04/17 05/04/17 05/04/17 Range/Units 07:19 09:02 09:02 WBC 12.8 H (3.8-10.6) k/uL RBC 3.63 L (3.80-5.40) m/uL Hgb 10.9 L (11.4-16.0) gm/dL MCHC 30.5 L (31.0-37.0) g/dL Glucose 132 H (74-99) mg/dL POC Glucose (mg/dL) 146 H (75-99) mg/dL Assessment and Plan Assessment: Acute hypoxemia, resolved Acute exacerbation of asthma, severe persistent, ALLERGIC Environmental ALLERGIES Dyspnea Cough Hyperglycemia likely secondary to steroids O2 to maintain saturation greater than or equal to 90% IV Solu-Medrol taper Pulmicort Duo nebs Incentive spirometry and pulmonary hygiene Initiate insulin sliding scale GI and DVT prophylaxis Patient can be restarted on Xolair, will arrange through our office
[2017-05-04] MEDS: ONDANSETRON 4 MG/2 ML VIAL IVP PRN (12:17)
[2017-05-04 12:31] LABS: Glucose,Whole Blood 113 mg/dL (75-99)
[2017-05-04 17:05] LABS: Glucose,Whole Blood 127 mg/dL (75-99)
[2017-05-04] MEDS: INSULIN ASPART 100 UNIT/ML 1 ML 10 ML VIAL SQ SCH ×2 (17:11→21:14)
--- NOTE | 2017-05-04 17:34 | P.PN ---
Subjective Progress Note Date: 05/04/17 Progress note being dictated for Dr. Lopez Interval history:Patient is a 22-year-old female with a known history of asthma since childhood on follow with her pulmonary clinic with a Dr. Phillips came to the hospital the complains of shortness of breath and chest tightness and dry cough. Patient was recently seen at Dr. Phillips's office due to asthma exacerbation and was placed on Indocin steroids. Patient used to be on Qvar which she is not been taking and also noncompliance with her Xolair injections.Patient states that she's been doing treatments and use her inhaler more than usual and states is not alleviating her symptoms. Patient also complains of right flank pain with dysuria. Denies fever, chills. She states that she has been admitted several times for her asthma. Denies any calf pain, calf swelling, recent traveling or any history of DVT or PE. Patient does admit to palpitations, and the heart is racing at this time. Patient was initially admitted to observation unit and lateral patient became tachypneic and tachycardia and eventually was transferred to MICU. Currently patient is more awake and oriented and tachycardia improved. EKG showed sinus tachycardia Chest x-ray showed subsegmental atelectasis unchanged from previous study 05/04/2017 breathing improving with less shortness of breath upon exertion, chest tightness. Evaluated by cardiology, recommendations noted including no further workup recommended. Objective - Vital Signs Vital signs: Vital Signs Temp 98.5 F 05/04/17 15:00 Pulse 72 05/04/17 15:56 Resp 18 05/04/17 15:00 BP 116/69 05/04/17 15:00 Pulse Ox 99 05/04/17 15:00 Intake & Output 05/03/17 05/04/17 05/04/17 18:59 06:59 18:59 Intake Total 200 150 118 Output Total 600 Balance -400 150 118 Weight 47.17 kg Intake: Oral 200 150 118 Output: Urine 600 Other: Voiding Method Toilet Toilet # Voids 1 - Exam Patient is lying in the bed comfortably, no acute distress, awake alert and oriented. Anxious. HEENT: Normocephalic. Neck is supple. Pupils reactive. Nostrils clear. Oral cavity is moist. Ears reveal no drainage. Neck reveals no JVD, carotid bruits, or thyromegaly. CHEST EXAMINATION: Trachea is central. Symmetrical expansion. Bilateral diminished air entry and improving wheezing expiratory positive no rhonchi CARDIAC: Normal S1, S2 with no gallops. No murmurs . Tachycardia sinus ABDOMEN: Soft. Bowel sounds normal. No organomegaly. No abdominal bruits. Extremities: reveal no edema. No clubbing or cyanosis Neurologically awake, alert, oriented x3 with well-coordinated movements. No focal deficits noted Skin: No rash or skin lesions. Psychiatric: Cooperative. Nonsuicidal Musculoskeletal: No joint swelling or deformity. Normal range of motion. - Labs CBC & Chem 7: 05/04/17 09:02 05/04/17 09:02 Labs: Abnormal Lab Results - Last 24 Hours (Table) 05/03/17 05/04/17 05/04/17 Range/Units 17:34 01:57 07:19 WBC (3.8-10.6) k/uL RBC (3.80-5.40) m/uL Hgb (11.4-16.0) gm/dL MCHC (31.0-37.0) g/dL Glucose (74-99) mg/dL POC Glucose (mg/dL) 167 H 146 H 146 H (75-99) mg/dL 05/04/17 05/04/17 05/04/17 Range/Units 09:02 09:02 12:19 WBC 12.8 H (3.8-10.6) k/uL RBC 3.63 L (3.80-5.40) m/uL Hgb 10.9 L (11.4-16.0) gm/dL MCHC 30.5 L (31.0-37.0) g/dL Glucose 132 H (74-99) mg/dL POC Glucose (mg/dL) 113 H (75-99) mg/dL 05/04/17 Range/Units 16:58 WBC (3.8-10.6) k/uL RBC (3.80-5.40) m/uL Hgb (11.4-16.0) gm/dL MCHC (31.0-37.0) g/dL Glucose (74-99) mg/dL POC Glucose (mg/dL) 127 H (75-99) mg/dL Assessment and Plan Assessment: #1 acute asthma exacerbation, severe persistent: #2 sinus tachycardia. TSH within normal limits #3 ALLERGIC asthma on Xolair injections #4 non-compliance with medications due to insurance issues Plan: Continue on current medication regime, nebulized because dilators, IV steroids, monitoring and symptomatic treatment. Discharge planning in progress pending pulmonary clearance. Further recommendations to follow. The impression and plan of care has been dictated as directed. : I performed a history and examination of this patient, discussed the same with the dictator. I agree with the dictator's note ,documented as a scribe. Any additional findings or plans will be noted.
[2017-05-04 21:10] LABS: Glucose,Whole Blood 109 mg/dL (75-99)
[2017-05-04] MEDS: methylPREDNISolone SOD SUCCI 40 MG/ML 1 ML VIAL IV SCH (21:13)
[2017-05-04] MEDS: LORazepam 0.5 MG TAB PO PRN (21:18)
[2017-05-05] MEDS: IPRATROPIUM-ALBUTEROL 3 ML NEB INHALATION SCH ×7 (03:26→23:50)
[2017-05-05 07:54] LABS: Glucose,Whole Blood 111 mg/dL (75-99)
[2017-05-05] MEDS: BUDESONIDE 0.5 MG/2 ML NEBU INHALATION SCH ×2 (07:57→19:57)
[2017-05-05] MEDS: INSULIN ASPART 100 UNIT/ML 1 ML 10 ML VIAL SQ SCH ×4 (08:04→21:25)
[2017-05-05] MEDS: FAMOTIDINE 20 MG TAB PO SCH ×2 (08:07→20:18)
[2017-05-05] MEDS: methylPREDNISolone SOD SUCCI 40 MG/ML 1 ML VIAL IV SCH (08:07)
[2017-05-05] MEDS: MONTELUKAST 10 MG TAB PO SCH (08:07)
[2017-05-05] MEDS: HEPARIN SODIUM,PORCINE 5,000 UNIT/ML 1 ML VIAL SQ SCH ×3 (08:07→23:56)
[2017-05-05] MEDS: HYDROcodone/APAP 5-325MG 1 EACH TAB PO PRN ×3 (08:09→20:18)
[2017-05-05] MEDS ORDERED: KETOROLAC 30 MG/ML 1 ML VIAL IVP PRN (09:34)
--- NOTE | 2017-05-05 09:35 | P.PN ---
Subjective Progress Note Date: 05/05/17 Principal diagnosis: AE Asthma patient seen and examined. Patient states that she is having chest pain which is worse with deep breath. She also states it hurts when anyone touches it. She denies fevers and chills. She is currently on room air. Objective - Vital Signs Vital signs: Vital Signs Temp 97.6 F 05/05/17 07:00 Pulse 93 05/05/17 08:18 Resp 18 05/05/17 07:00 BP 117/71 05/05/17 07:00 Pulse Ox 98 05/05/17 07:58 Intake & Output 05/04/17 05/05/17 05/05/17 18:59 06:59 18:59 Intake Total 118 1150 Balance 118 1150 Intake: Oral 118 1150 Other: # Voids 1 2 - Exam Gen.: Patient is alert and oriented 3, no acute distress Cardiovascular: Regular rate and rhythm, S1/S2 Lungs: Diminished breath sounds bilaterally, poor inspiratory effort Abdomen: Soft nontender nondistended positive bowel sounds Extremities: No edema - Labs CBC & Chem 7: 05/04/17 09:02 05/04/17 09:02 Labs: Abnormal Lab Results - Last 24 Hours (Table) 05/04/17 05/04/17 05/04/17 Range/Units 09:02 09:02 12:19 WBC 12.8 H (3.8-10.6) k/uL RBC 3.63 L (3.80-5.40) m/uL Hgb 10.9 L (11.4-16.0) gm/dL MCHC 30.5 L (31.0-37.0) g/dL Glucose 132 H (74-99) mg/dL POC Glucose (mg/dL) 113 H (75-99) mg/dL 05/04/17 05/04/17 05/05/17 Range/Units 16:58 20:35 07:13 WBC (3.8-10.6) k/uL RBC (3.80-5.40) m/uL Hgb (11.4-16.0) gm/dL MCHC (31.0-37.0) g/dL Glucose (74-99) mg/dL POC Glucose (mg/dL) 127 H 109 H 111 H (75-99) mg/dL Assessment and Plan Assessment: Acute hypoxemia, resolved Acute exacerbation of asthma, severe persistent, ALLERGIC Environmental ALLERGIES Dyspnea Cough Hyperglycemia likely secondary to steroids Costochondritis O2 to maintain saturation greater than or equal to 90% IV Solu-Medrol taper Pulmicort Duo nebs Incentive spirometry and pulmonary hygiene Initiate insulin sliding scale GI and DVT prophylaxis Patient can be restarted on Xolair, will arrange through our office Add Toradol PRN
[2017-05-05 12:17] LABS: Glucose,Whole Blood 127 mg/dL (75-99)
[2017-05-05 17:05] LABS: Glucose,Whole Blood 130 mg/dL (75-99)
[2017-05-05] MEDS: LORazepam 0.5 MG TAB PO PRN (20:18)
[2017-05-05 21:01] LABS: Glucose,Whole Blood 126 mg/dL (75-99)
[2017-05-06] MEDS: HYDROcodone/APAP 5-325MG 1 EACH TAB PO PRN ×2 (02:23→10:18)
[2017-05-06] MEDS: IPRATROPIUM-ALBUTEROL 3 ML NEB INHALATION SCH ×3 (04:16→12:18)
[2017-05-06] MEDS: INSULIN ASPART 100 UNIT/ML 1 ML 10 ML VIAL SQ SCH ×2 (07:28→11:56)
[2017-05-06 07:35] LABS: Glucose,Whole Blood 93 mg/dL (75-99)
[2017-05-06 07:54] VITALS: RESP 16
[2017-05-06] MEDS: FAMOTIDINE 20 MG TAB PO SCH (08:23)
[2017-05-06] MEDS: HEPARIN SODIUM,PORCINE 5,000 UNIT/ML 1 ML VIAL SQ SCH (08:23)
[2017-05-06] MEDS: MONTELUKAST 10 MG TAB PO SCH (08:24)
[2017-05-06 08:47] LABS: Anion Gap 8 mmol/L; Blood Urea Nitrogen 16 mg/dL (7-17); Calcium 9.2 mg/dL (8.4-10.2); Carbon Dioxide 26 mmol/L (22-30); Chloride 107 mmol/L (98-107); Glucose 100 mg/dL (74-99); Non-African American GFR(MDRD) >60 (>60 ml/min/1.73 sqM); Potassium 3.9 mmol/L (3.5-5.1); Sodium 141 mmol/L (137-145)
[2017-05-06] MEDS ORDERED: methylPREDNISolone SOD SUCCI 40 MG/ML 1 ML VIAL IV SCH (09:00)
[2017-05-06] MEDS: BUDESONIDE 0.5 MG/2 ML NEBU INHALATION SCH (09:05)
[2017-05-06] MEDS: ONDANSETRON 4 MG/2 ML VIAL IVP PRN (11:51)
[2017-05-06 11:58] LABS: Basophils # (A) 0.1 k/uL (0-0.2); Basophils % (A) 1 %; CH 29.5; CHCM 30.6; Eosinophils # (A) 0.1 k/uL (0-0.7); Eosinophils % (A) 1 %; HCT 36.1 % (34.0-46.0); HDW 1.94; HGB 11.2 gm/dL (11.4-16.0); Hypochromasia Slight; Luc # (Auto) 0.29; Luc % (Auto) 3; Lymphocytes # (A) 4.7 k/uL (1.0-4.8); Lymphocytes % (A) 41 %; MCH 30.1 pg (25.0-35.0); MCHC 31.1 g/dL (31.0-37.0); Mean Platelet Volume 8.8; Monocytes # (A) 0.9 k/uL (0-1.0); Monocytes % (A) 8 %; Neutrophils # (A) 5.5 k/uL (1.3-7.7); Neutrophils % (A) 48 %; RBC 3.72 m/uL (3.80-5.40); RDW 13.9 % (11.5-15.5); WBC 11.5 k/uL (3.8-10.6); WBC (Perox) 11.82
[2017-05-06 11:59] LABS: Glucose,Whole Blood 113 mg/dL (75-99)
--- NOTE | 2017-05-06 14:27 | P.PN ---
Subjective Progress Note Date: 05/06/17 Principal diagnosis: AE Asthma Patient seen and examined. Patient is complaining of continued pain with deep inspiration. She states she is still having a cough. She has not had fevers or chills. Objective - Vital Signs Vital signs: Vital Signs Temp 98.6 F 05/06/17 07:00 Pulse 76 05/06/17 12:30 Resp 16 05/06/17 07:00 BP 112/74 05/06/17 07:00 Pulse Ox 99 05/06/17 14:22 Intake & Output 05/05/17 05/06/17 05/06/17 18:59 06:59 18:59 Intake Total 300 200 Balance 300 200 Intake: Oral 300 200 Other: Voiding Method Toilet # Voids 2 1 - Exam Gen.: Patient is alert and oriented 3, no acute distress Cardiovascular: Regular rate and rhythm, S1/S2 Lungs: Diminished breath sounds bilaterally, poor inspiratory effort Abdomen: Soft nontender nondistended positive bowel sounds Extremities: No edema - Labs CBC & Chem 7: 05/06/17 08:17 05/06/17 08:17 Labs: Abnormal Lab Results - Last 24 Hours (Table) 05/05/17 05/05/17 05/06/17 Range/Units 16:50 20:50 08:17 WBC 11.5 H (3.8-10.6) k/uL RBC 3.72 L (3.80-5.40) m/uL Hgb 11.2 L (11.4-16.0) gm/dL Glucose (74-99) mg/dL POC Glucose (mg/dL) 130 H 126 H (75-99) mg/dL 05/06/17 05/06/17 Range/Units 08:17 11:56 WBC (3.8-10.6) k/uL RBC (3.80-5.40) m/uL Hgb (11.4-16.0) gm/dL Glucose 100 H (74-99) mg/dL POC Glucose (mg/dL) 113 H (75-99) mg/dL Assessment and Plan Assessment: Acute hypoxemia, resolved Acute exacerbation of asthma, severe persistent, ALLERGIC Environmental ALLERGIES Dyspnea Cough Hyperglycemia likely secondary to steroids Costochondritis O2 to maintain saturation greater than or equal to 90% IV Solu-Medrol taper Pulmicort Duo nebs Incentive spirometry and pulmonary hygiene Initiate insulin sliding scale GI and DVT prophylaxis Patient can be restarted on Xolair, will arrange through our office Add Toradol PRN leonel Tripathi to RAGHAVENDRA from pulmonary standpoint Outpatient follow up next week
[2017-05-06] MEDS ORDERED: guaiFENesin 600 MG TABLET.ER PO SCH (14:30)
[2017-05-06 14:38] VITALS: BP 107/58; PULSE 88; TEMP 97.9
--- NOTE | 2017-05-06 17:33 | P.PN ---
Subjective Progress Note Date: 05/05/17 Progress note being dictated for Dr. Lopez Interval history:Patient is a 22-year-old female with a known history of asthma since childhood on follow with her pulmonary clinic with a Dr. Phillips came to the hospital the complains of shortness of breath and chest tightness and dry cough. Patient was recently seen at Dr. Phillips's office due to asthma exacerbation and was placed on Indocin steroids. Patient used to be on Qvar which she is not been taking and also noncompliance with her Xolair injections.Patient states that she's been doing treatments and use her inhaler more than usual and states is not alleviating her symptoms. Patient also complains of right flank pain with dysuria. Denies fever, chills. She states that she has been admitted several times for her asthma. Denies any calf pain, calf swelling, recent traveling or any history of DVT or PE. Patient does admit to palpitations, and the heart is racing at this time. Patient was initially admitted to observation unit and lateral patient became tachypneic and tachycardia and eventually was transferred to MICU. Currently patient is more awake and oriented and tachycardia improved. EKG showed sinus tachycardia Chest x-ray showed subsegmental atelectasis unchanged from previous study 05/04/2017 breathing improving with less shortness of breath upon exertion, chest tightness. Evaluated by cardiology, recommendations noted including no further workup recommended. 05/05/2017 maintained on nebulized bronchodilators, IV steroids. nonproductive cough, complaining of rib cage pain from coughing. Mucinex added to med regime. Maintaining O2 sats in the high 90s on room air. Denies chest pain, palpitations. Denies lightheadedness dizziness. No nausea or vomiting. Afebrile. Objective - Vital Signs Vital signs: Vital Signs Temp 97.9 F 05/05/17 15:00 Pulse 91 05/05/17 15:55 Resp 16 05/05/17 15:00 BP 116/60 05/05/17 15:00 Pulse Ox 96 05/05/17 15:00 Intake & Output 05/04/17 05/05/17 05/05/17 18:59 06:59 18:59 Intake Total 118 1150 Balance 118 1150 Intake: Oral 118 1150 Other: # Voids 1 2 2 - Exam Patient is sitting up in the bed comfortably, no acute distress, awake alert and oriented. HEENT: Normocephalic. Neck is supple. Pupils reactive. Nostrils clear. Oral cavity is moist. Ears reveal no drainage. Neck reveals no JVD, carotid bruits CHEST EXAMINATION: Trachea is central. Symmetrical expansion. Bilateral diminished air entry, no wheezing, no rhonchi CARDIAC: Normal S1, S2 with no gallops. No murmurs . Tachycardia sinus ABDOMEN: Soft. Bowel sounds normal. No organomegaly. No abdominal bruits. Extremities: reveal no edema. No clubbing or cyanosis Neurologically awake, alert, oriented x3 with well-coordinated movements. No focal deficits noted Skin: No rash or skin lesions. Psychiatric: Cooperative. Nonsuicidal Musculoskeletal: No joint swelling or deformity. Normal range of motion. - Labs CBC & Chem 7: 05/06/17 08:17 05/06/17 08:17 Labs: Abnormal Lab Results - Last 24 Hours (Table) 05/04/17 05/05/17 05/05/17 Range/Units 20:35 07:13 11:52 POC Glucose (mg/dL) 109 H 111 H 127 H (75-99) mg/dL 05/05/17 Range/Units 16:50 POC Glucose (mg/dL) 130 H (75-99) mg/dL Assessment and Plan Assessment: #1 acute asthma exacerbation, severe persistent: #2 sinus tachycardia. TSH within normal limits #3 ALLERGIC asthma on Xolair injections #4 non-compliance with medications due to insurance issues #5 costochondritis Plan: Continue on current medication regime, nebulized because dilators, IV steroids, monitoring and symptomatic treatment. Steroid tapering in progress as per pulmonary. As mentioned above Mucinex added to med regime. Increase ambulation with assistance, as tolerated Discharge planning in progress for tomorrow pending pulmonary clearance. Further recommendations to follow. The impression and plan of care has been dictated as directed. : I performed a history and examination of this patient, discussed the same with the dictator. I agree with the dictator's note ,documented as a scribe. Any additional findings or plans will be noted.
--- NOTE | 2017-05-06 17:42 | P.DS ---
Providers Date of admission: 05/03/17 14:46 Expected date of discharge: 05/06/17 Attending physician: Clint Lopez Consults: 05/03/17 00:49 Consult Physician Stat Consulting Provider: Mike Phillips Consult Reason/Comments: asthma Do you want consulting provider notified?: Yes 05/03/17 01:01 Consult Physician Stat Consulting Provider: Yenny Breen Consult Reason/Comments: dyspnea Do you want consulting provider notified?: Yes Primary care physician: Winston Claros Hospital Course: Final Diagnoses: #1 acute asthma exacerbation, severe persistent: #2 sinus tachycardia. TSH within normal limits #3 ALLERGIC asthma on Xolair injections #4 non-compliance with medications due to insurance issues #5 costochondritis Hospital course:Interval history:Patient is a 22-year-old female with a known history of asthma since childhood on follow with her pulmonary clinic with a . Alan came to the hospital the complains of shortness of breath and chest tightness and dry cough. Patient was recently seen at Dr. Phillips's office due to asthma exacerbation and was placed on Indocin steroids. Patient used to be on Qvar which she is not been taking and also noncompliance with her Xolair injections.Patient states that she's been doing treatments and use her inhaler more than usual and states is not alleviating her symptoms. Patient was initially admitted to observation unit,became tachypneic , tachycardic and eventually was transferred to MICU. EKG showed sinus tachycardia.Chest x-ray showed subsegmental atelectasis unchanged from previous study. Evaluated by pulmonary, maintained on nebulized bronchodilators, steroids ,LABA with significant clinical improvement. Cleared for discharge by pulmonary. Xolair,albuterol inhaler, arranged as per pulmonary. Patient is being discharged home in a stable condition with guarded prognosis. The impression and plan of care has been dictated as directed. : I performed a history and examination of this patient, discussed the same with the dictator. I agree with the dictator's note ,documented as a scribe. Any additional findings or plans will be noted. Patient Condition at Discharge: Stable Plan - Discharge Summary Discharge Rx Participant: Yes New Discharge Prescriptions: New guaiFENesin [Mucinex] 1,200 mg PO Q12HR #28 tablet.er predniSONE 10 mg PO DIRECTED #30 tab traMADol HCL [Ultram] 50 mg PO Q6HR PRN #12 tab PRN Reason: Pain Continue Albuterol Inhaler [Ventolin Hfa Inhaler] 2 puff INHALATION RT-Q4H PRN PRN Reason: Shortness Of Breath Montelukast [Singulair] 10 mg PO QAM Albuterol Nebulized [Ventolin Nebulized] 2.5 mg INHALATION RT-Q4H PRN PRN Reason: Shortness Of Breath LORazepam [Ativan] 0.5 mg PO DAILY PRN PRN Reason: Anxiety Discontinued predniSONE See Taper PO DAILY Discharge Medication List Albuterol Inhaler [Ventolin Hfa Inhaler] 2 puff INHALATION RT-Q4H PRN 11/17/16 [ History] Montelukast [Singulair] 10 mg PO QAM 01/22/17 [History] Albuterol Nebulized [Ventolin Nebulized] 2.5 mg INHALATION RT-Q4H PRN 05/02/17 [ History] LORazepam [Ativan] 0.5 mg PO DAILY PRN 05/02/17 [History] guaiFENesin [Mucinex] 1,200 mg PO Q12HR #28 tablet.er 05/06/17 [Rx] predniSONE 10 mg PO DIRECTED #30 tab 05/06/17 [Rx] traMADol HCL [Ultram] 50 mg PO Q6HR PRN #12 tab 05/06/17 [Rx] Follow up Appointment(s)/Referral(s): Hyacinth Montero MD [Primary Care Provider] - 05/11/17 1:50 pm Yenny Breen DO [Doctor of Osteopathic Medicine] - 05/24/17 9:30 am Ambulatory/Diagnostic Orders: Complete Blood Count w/diff [LAB.AMB] Time Frame: 3 Days, Location: Determined By Patient Patient Instructions/Handouts: Asthma (DC) Activity/Diet/Wound Care/Special Instructions: Regular diet. Xolair being arranged as per pulmonary, through their office. Discharge/Stand Alone Forms: Work/School Release Discharge Disposition: HOME SELF-CARE
== END 2017-05-06 16:04 | disposition home or self-care (01) | DRG 203 ==
LOC: EC 19:53 → 3OBS 23:06 → 6ICU 05-03 01:09 → OBSVTOIN 05-03 14:46 → 4MS4W 05-03 22:59
PROVIDERS: ADMIT Hospitalist; ATTEND Hospitalist
DX: J45.51 Severe persistent asthma with (acute) exacerbation (principal); M94.0 Chondrocostal junction syndrome [Tietze]; R09.02 Hypoxemia; T38.0X5A Adverse effect of glucocorticoids and synthetic analogues, initial encounter; R00.0 Tachycardia, unspecified; R73.9 Hyperglycemia, unspecified; R30.0 Dysuria; R06.03 Acute respiratory distress; Z79.899 Other long term (current) drug therapy; Z91.14 Patient's other noncompliance with medication regimen; Z88.0 Allergy status to penicillin
CPT/HCPCS: 36415; 71020; 80048; 80053; 80306; 81003; 81025; 83735; 84100; 84443; 84484; 85025; 85027; 85379; 85610; 85730; 93005; 94640; 94760; 96361; 96374; 96375; 96376; 99285

== ENCOUNTER → 2017-10-21 | Outpatient (CLI) | payer MEDICAID, OTHER ==
--- NOTE | 2017-10-21 13:52 | US ---
EXAMINATION TYPE: Transabdominal DATE OF EXAM: 09/27/17 COMPARISON: NONE CLINICAL HISTORY: Z34.80 SUPERVISION OF NORMAL . confirm dates EXAM PERFORMED: Transvaginal (TV) and Transabdominal (TA) EXAM MEASUREMENTS: GESTATIONAL AGE / DATING Physician Established: not established Dates by LMP: (8 weeks/6 days) EDC: 05/27/2018 Dates by First Scan: this is first exam Dates by Current Scan for: (8 weeks/3 days) EDC: 05/30/2018 MATERNAL ANATOMY Uterus: 10.5 x 6.7 x 8.0 cm Right Ovary: 3.5 x 1.3 x 1.7 Left Ovary: 3.7 x 2.5 x 2.7 Post CDS / Adnexa: wnl Presence of free fluid: none Presence of corpus luteal cyst: left ovary measures 2.1 x 1.9 x 2.1 cm GESTATION / SURVEY CRL: 1.9 cm (8 weeks/3 days) Yolk Sac (normal less than 6mm): 0.4 cm Heart Rate: 165 bpm Rhythm: Normal IUP: Viable IUP Date of LMP: 08/20/2017 Single live intrauterine gestation is seen as gestational sac, yolk sac, and pole are identifie d. No free fluid is seen in pelvic cul-de-sac. Both ovaries are seen. Within the left ovary there is 2.1 cm cystic lesion likely reflecting corpus l uteal cyst. There is no suspicious extraovarian adnexal lesion identified. IMPRESSION: Single live intrauterine gestation is confirmed, mean crown-rump length is 1.9 cm corresponding to 8 week 3 day old fetus.
== END | disposition home or self-care (01) ==
LOC: RADUSWWP 13:07
PROVIDERS: ATTEND Obstetrics & Gynecology
DX: Z34.81 Encounter for supervision of other normal pregnancy, first trimester (principal); Z3A.08 8 weeks gestation of pregnancy
CPT/HCPCS: 76801; 76817

== ENCOUNTER 2017-12-17 08:32 | Emergency (ER) | payer MEDICAID, OTHER ==
[2017-12-17 08:38] VITALS: RESP 18; TEMP 98.8
[2017-12-17] MEDS ORDERED: SODIUM CHLORIDE 0.9% 1,000 ML IV STA (08:48)
--- NOTE | 2017-12-17 08:51 | ED ---
SOB HPI - General Chief Complaint: Shortness of Breath Stated Complaint: SOB Time Seen by Provider: 12/17/17 08:41 Source: patient, RN notes reviewed, old records reviewed Mode of arrival: ambulatory Limitations: no limitations - History of Present Illness Initial Comments: 22-year-old female with a history of asthma currently 17 weeks presents to the emergency department today chief complaint of back pain, high heart rate and shortness of breath. She reports that she's been having the symptoms for the past few days. Patient reports that she was admitted to the ICU for severe asthma. Patient states that she's been using her inhaler more frequently over the past few days. Patient was concerned because she felt like she cannot do anything at work without becoming Short of breath. She came here straight from work. Patient has no leg swelling. No history of blood clots. - Related Data Home Medications Medication Instructions Recorded Confirmed Albuterol Inhaler [Ventolin Hfa 2 puff INHALATION RT-Q4H PRN 11/17/16 12/17/17 Inhaler] Albuterol Nebulized [Ventolin 2.5 mg INHALATION RT-Q4H PRN 05/02/17 12/17/17 Nebulized] Previous Rx's Medication Instructions Recorded Budesonide [Pulmicort] 0.5 mg INHALATION TID #20 neb 12/17/17 Budesonide [Pulmicort] 1 puff INHALATION BID #1 inhaler 12/17/17 Allergies Allergy/AdvReac Type Severity Reaction Status Date / Time amoxicillin [Amoxicillin] Allergy Anaphylaxis Verified 12/17/17 08:38 Review of Systems ROS Statement: Those systems with pertinent positive or pertinent negative responses have been documented in the HPI. ROS Other: All systems not noted in ROS Statement are negative. Past Medical History Past Medical History: Asthma History of Any Multi-Drug Resistant Organisms: None Reported Past Surgical History: No Surgical Hx Reported Additional Past Anesthesia/Blood Transfusion Reaction / Comment(s): no anesthesia or blood before Past Psychological History: No Psychological Hx Reported Smoking Status: Never smoker Past Alcohol Use History: None Reported Past Drug Use History: None Reported - Past Family History Father Family Medical History: Asthma General Exam - General Exam Comments Initial Comments: 22-year-old female. Alert and oriented. No significant distress. Limitations: no limitations General appearance: alert, in no apparent distress Head exam: Present: atraumatic, normocephalic, normal inspection Eye exam: Present: normal appearance, PERRL, EOMI. Absent: scleral icterus, conjunctival injection, periorbital swelling ENT exam: Present: normal exam, mucous membranes moist Neck exam: Present: normal inspection. Absent: tenderness, meningismus, lymphadenopathy Respiratory exam: Present: normal lung sounds bilaterally, decreased breath sounds (Decreased lung sounds bilaterally.). Absent: respiratory distress, wheezes, rales, rhonchi, stridor Cardiovascular Exam: Present: normal rhythm, tachycardia, normal heart sounds. Absent: regular rate, systolic murmur, diastolic murmur, rubs, gallop, clicks GI/Abdominal exam: Present: soft, normal bowel sounds. Absent: distended, tenderness, guarding, rebound, rigid Extremities exam: Present: normal inspection, full ROM, normal capillary refill. Absent: tenderness, pedal edema, joint swelling, calf tenderness Back exam: Present: normal inspection Neurological exam: Present: alert, oriented X3, CN II-XII intact Psychiatric exam: Present: normal affect, normal mood Skin exam: Present: warm, dry, intact, normal color. Absent: rash Course Vital Signs 12/17/17 12/17/17 12/17/17 08:35 10:05 10:34 Temperature 98.8 F Pulse Rate 113 H 107 H 92 Respiratory 18 18 Rate Blood Pressure 148/97 128/69 O2 Sat by Pulse 100 99 Oximetry 12/17/17 10:44 Temperature Pulse Rate 90 Respiratory Rate Blood Pressure O2 Sat by Pulse Oximetry - Reevaluation(s) Reevaluation #1: 12/17/17 09:03 I discussed at this time concern for possibility of pulmonary embolism due to multiple risk factors including , symptoms of the shortness of breath, back pain and tachycardia 130s. Patient informed of the concern for radiation to an exposed fetus. I discussed that is relatively lower risk for one-time exposure computed tomography scan to rule out the possibility of PE is more concerning at this time. Patient again raise and will proceed with a computed tomography scan. CT KOEHLER chest for PE will be completed. Reevaluation #2: 12/17/17 11:05 Patient is reevaluated this time I did give her an albuterol breathing treatment. She states that she seems to feel somewhat worse she feels like she feels very jittery and lightheaded. She states she still feels pressure and heaviness on her chest. Heart rate seems to fluctuate between 120 and 100 bpm during a conversation. Medical Decision Making - Medical Decision Making 32-year-old female 17 weeks' history of back pain and shortness of breath tachycardia. Patient had no significant wheezing on exam. There is concern for possibility of PE. Discussed risks and benefit of computed tomography scan. We perfused proceeded with a computed tomography scan which is negative for PE. There is really labwork was unremarkable. CT did show evidence of reactive airway disease. I did give the Patient albuterol breathing treatment. I will Sayed discussed the case with PUTTY GLAZER as well as pulmonology. Pulmonology recommends putting the Patient on Pulmicort as it' s a category B drug. We'll write her for an inhaler and right upper nebulizer treatments. Otherwise vital signs are stable Patient will be discharged at this time. All questions answered. Pedal heart tones were 150. - Lab Data Result diagrams: 12/17/17 09:00 12/17/17 09:00 Lab Results 12/17/17 12/17/17 12/17/17 Range/Units 09:00 09:00 09:00 WBC 8.6 (3.8-10.6) k/uL RBC 4.11 (3.80-5.40) m/uL Hgb 12.8 (11.4-16.0) gm/dL Hct 38.1 (34.0-46.0) % MCV 92.8 (80.0-100.0) fL MCH 31.1 (25.0-35.0) pg MCHC 33.5 (31.0-37.0) g/dL RDW 13.1 (11.5-15.5) % Plt Count 233 (150-450) k/uL Neutrophils % 72 % Lymphocytes % 19 % Monocytes % 5 % Eosinophils % 4 % Basophils % 0 % Neutrophils # 6.1 (1.3-7.7) k/uL Lymphocytes # 1.6 (1.0-4.8) k/uL Monocytes # 0.4 (0-1.0) k/uL Eosinophils # 0.3 (0-0.7) k/uL Basophils # 0.0 (0-0.2) k/uL PT (9.0-12.0) sec INR (<1.2) APTT (22.0-30.0) sec Sodium 138 (137-145) mmol/L Potassium 4.7 (3.5-5.1) mmol/L Chloride 104 (98-107) mmol/L Carbon Dioxide 24 (22-30) mmol/L Anion Gap 10 mmol/L BUN 5 L (7-17) mg/dL Creatinine 0.53 (0.52-1.04) mg/dL Est GFR (CKD-EPI)AfAm >90 (>60 ml/min/1.73 sqM) Est GFR (CKD-EPI)NonAf >90 (>60 ml/min/1.73 sqM) Glucose 85 (74-99) mg/dL Calcium 9.6 (8.4-10.2) mg/dL Magnesium 1.8 (1.6-2.3) mg/dL Total Bilirubin 0.2 (0.2-1.3) mg/dL AST 18 (14-36) U/L ALT 19 (9-52) U/L Alkaline Phosphatase 65 (38-126) U/L Total Creatine Kinase 83 (30-135) U/L CK-MB (CK-2) 0.4 (0.0-2.4) ng/mL CK-MB (CK-2) Rel Index 0.5 Troponin I <0.012 (0.000-0.034) ng/mL Total Protein 7.2 (6.3-8.2) g/dL Albumin 4.2 (3.5-5.0) g/dL 12/17/17 Range/Units 09:00 WBC (3.8-10.6) k/uL RBC (3.80-5.40) m/uL Hgb (11.4-16.0) gm/dL Hct (34.0-46.0) % MCV (80.0-100.0) fL MCH (25.0-35.0) pg MCHC (31.0-37.0) g/dL RDW (11.5-15.5) % Plt Count (150-450) k/uL Neutrophils % % Lymphocytes % % Monocytes % % Eosinophils % % Basophils % % Neutrophils # (1.3-7.7) k/uL Lymphocytes # (1.0-4.8) k/uL Monocytes # (0-1.0) k/uL Eosinophils # (0-0.7) k/uL Basophils # (0-0.2) k/uL PT 9.8 (9.0-12.0) sec INR 1.0 (<1.2) APTT 23.7 (22.0-30.0) sec Sodium (137-145) mmol/L Potassium (3.5-5.1) mmol/L Chloride (98-107) mmol/L Carbon Dioxide (22-30) mmol/L Anion Gap mmol/L BUN (7-17) mg/dL Creatinine (0.52-1.04) mg/dL Est GFR (CKD-EPI)AfAm (>60 ml/min/1.73 sqM) Est GFR (CKD-EPI)NonAf (>60 ml/min/1.73 sqM) Glucose (74-99) mg/dL Calcium (8.4-10.2) mg/dL Magnesium (1.6-2.3) mg/dL Total Bilirubin (0.2-1.3) mg/dL AST (14-36) U/L ALT (9-52) U/L Alkaline Phosphatase (38-126) U/L Total Creatine Kinase (30-135) U/L CK-MB (CK-2) (0.0-2.4) ng/mL CK-MB (CK-2) Rel Index Troponin I (0.000-0.034) ng/mL Total Protein (6.3-8.2) g/dL Albumin (3.5-5.0) g/dL 12/17/17 09:09 EKG shows sinus rhythm with left atrial enlargement. Ventricular rate 93 beats per minute. Intervals 9150 ms. Pentecostal 80 ms. QT QTC 34/440 ms. No evidence of ST elevation. - Radiology Data Radiology results: report reviewed Mode is a PE. Mild diffuse bronchial wall thickening, could represent bronchitis or asthma. Disposition Clinical Impression: Asthma Disposition: HOME SELF-CARE Condition: Good Instructions: Asthma (ED) Additional Instructions: Patient has a follow-up with primary care provider and PUTTY GLAZER consult pulmonology. Return to emergency department if any alarming signs or symptoms occur. Prescriptions: Budesonide [Pulmicort] 1 puff INHALATION BID #1 inhaler Budesonide [Pulmicort] 0.5 mg INHALATION TID #20 neb Is patient prescribed a controlled substance at d/c from ED?: No When asked, does pt state using other controlled substances?: No If prescribed controlled substance>3 days was MAPS reviewed?: No If opioid is for acute pain is fill amount 7 days or less?: No If Rx opioid, was Start Talking consent form obtained?: No Referrals: Hyacinth Montero MD [Primary Care Provider] - 1-2 days Jaxson Christiansen MD [STAFF PHYSICIAN] - 1-2 days Hugo Majano DO [REFERRING] - 1-2 days Time of Disposition: 12:14
[2017-12-17 09:11] LABS: Basophils % (A) 0 %; Eosinophils # (A) 0.3 k/uL (0-0.7); Eosinophils % (A) 4 %; HCT 38.1 % (34.0-46.0); HGB 12.8 gm/dL (11.4-16.0); Lymphocytes # (A) 1.6 k/uL (1.0-4.8); Lymphocytes % (A) 19 %; MCH 31.1 pg (25.0-35.0); MCHC 33.5 g/dL (31.0-37.0); MCV 92.8 fL (80.0-100.0); Mean Platelet Volume 7.1; Monocytes # (A) 0.4 k/uL (0-1.0); Monocytes % (A) 5 %; Neutrophils # (A) 6.1 k/uL (1.3-7.7); Neutrophils % (A) 72 %; Platelet Count 233 k/uL (150-450); RBC 4.11 m/uL (3.80-5.40); RDW 13.1 % (11.5-15.5); WBC 8.6 k/uL (3.8-10.6)
[2017-12-17] MEDS ORDERED: SODIUM CHLORIDE 0.9% 1,000 ML IV SCH (09:15)
[2017-12-17 09:22] LABS: Partial Thromboplastin Time 23.7 sec (22.0-30.0); Prothrombin Time 9.8 sec (9.0-12.0)
[2017-12-17 09:23] LABS: ALT 19 U/L (9-52); AST 18 U/L (14-36); Albumin 4.2 g/dL (3.5-5.0); Alkaline Phosphatase 65 U/L (38-126); Anion Gap 10 mmol/L; Blood Urea Nitrogen 5 mg/dL (7-17); Calcium 9.6 mg/dL (8.4-10.2); Carbon Dioxide 24 mmol/L (22-30); Chloride 104 mmol/L (98-107); Glucose 85 mg/dL (74-99); Magnesium 1.8 mg/dL (1.6-2.3); Potassium 4.7 mmol/L (3.5-5.1); Sodium 138 mmol/L (137-145); Total Bilirubin 0.2 mg/dL (0.2-1.3); Total Protein 7.2 g/dL (6.3-8.2)
[2017-12-17 09:25] LABS: Creatine Kinase 83 U/L (30-135)
[2017-12-17 09:38] LABS: Creatine Kinase MB 0.4 ng/mL (0.0-2.4); Troponin I <0.012 ng/mL (0.000-0.034)
--- NOTE | 2017-12-17 10:19 | CT ---
EXAMINATION TYPE: CT chest angio for PE DATE OF EXAM: 12/17/2017 COMPARISON: 01/22/2017 HISTORY: 22-year-old female tachycardia, shortness of breath, pain, 17 weeks . TECHNIQUE: Contiguous axial scanning of the chest performed with IV Contrast, patient injected with 6 3 mL of Isovue 370. Coronal/sagittal MIP reconstructions performed. CT DLP: 123.7 mGycm Automated exposure control for dose reduction was used. FINDINGS: Heart normal size without pericardial effusion. Aorta normal caliber with conventional arch vessel branching anatomy. Scattered nonenlarged axillary lymph nodes. Some residual thymic tissue compatible with patient's you ng age. No thoracic lymphadenopathy by CT size criteria. Satisfactory opacification of the pulmonary arterial system.. No evidence for pulmonary embolus. Mild biapical pleural-parenchymal scarring. There is mild diffuse bronchial wall thickening noted. No consolidation or pleural effusion. Only a small portion of the upper abdomen is visualized. Bones: No osseous destructive process. IMPRESSION: 1. NO EVIDENCE FOR PULMONARY EMBOLUS. 2. MILD DIFFUSE BRONCHIAL WALL THICKENING COULD REPRESENT BRONCHITIS OR ASTHMA.
[2017-12-17] MEDS ORDERED: ALBUTEROL NEBULIZED 2.5 MG/3 ML INHALATION STA (10:25)
[2017-12-17 12:18] VITALS: BP 127/76; PULSE 88
== END 2017-12-17 12:24 | disposition home or self-care (01) ==
LOC: EC 08:32
DX: O99.512 Diseases of the respiratory system complicating pregnancy, second trimester (principal); J45.909 Unspecified asthma, uncomplicated; O99.89 Other specified diseases and conditions complicating pregnancy, childbirth and the puerperium; M54.9 Dorsalgia, unspecified; Z3A.17 17 weeks gestation of pregnancy; Z88.0 Allergy status to penicillin
CPT/HCPCS: 36415; 94640; 93005; 80053; 82550; 82553; 83735; 84484; 85025; 85610; 85730; 71275; 99285; 96360; 96361 ×2; Q9967

== ENCOUNTER 2017-12-23 02:07 | Emergency (ER) | payer MEDICAID, OTHER ==
[2017-12-23 02:12] VITALS: BP 158/107; PULSE 89; RESP 18; TEMP 98.6
[2017-12-23] MEDS ORDERED: ACET/COD 300 MG/30 MG STARTER PACK 6 TAB BTL PO STA (02:26)
[2017-12-23] MEDS ORDERED: KETOROLAC 30 MG/ML 1 ML VIAL IM STA (02:26)
[2017-12-23] MEDS ORDERED: CLINDAMYCIN 150 MG CAP PO STA (02:26)
--- NOTE | 2017-12-23 02:28 | ED ---
ENT HPI - General Chief complaint: Dental/Oral Stated complaint: dental pain Time Seen by Provider: 12/23/17 02:15 Source: patient Mode of arrival: ambulatory Limitations: no limitations - History of Present Illness Initial comments: 22-year-old female patient presents to the emergency department today for evaluation of left upper dental pain. Patient states that she started having mild pain earlier today. States that as the night progressed her pain became worse and worse. Patient states she is unable to sleep due to the pain. She denies any difficulty swallowing or trismus. She denies any fevers or chills. Denies any nausea or vomiting. Patient denies any known broken teeth. Patient states that she still does have her wisdom teeth that they have never caused her problems. Patient is 18 weeks . Patient denies any recent rash, shortness breath, chest pain, abdominal pain, nausea, vomiting, diarrhea, constipation, back pain, numbness, tingling, dizziness, weakness, hematuria, dysuria, urinary urgency, urinary frequency, headache, visual changes, or any other complaints. - Related Data Home Medications Medication Instructions Recorded Confirmed Albuterol Inhaler [Ventolin Hfa 2 puff INHALATION RT-Q4H PRN 11/17/16 12/17/17 Inhaler] Albuterol Nebulized [Ventolin 2.5 mg INHALATION RT-Q4H PRN 05/02/17 12/17/17 Nebulized] Previous Rx's Medication Instructions Recorded Budesonide [Pulmicort] 0.5 mg INHALATION TID #20 neb 12/17/17 Budesonide [Pulmicort] 1 puff INHALATION BID #1 inhaler 12/17/17 Acetaminophen-Codeine 300-30mg 1 tab PO Q6H PRN #8 tablet 12/23/17 [Tylenol #3] Allergies Allergy/AdvReac Type Severity Reaction Status Date / Time amoxicillin [Amoxicillin] Allergy Anaphylaxis Verified 12/23/17 02:11 Review of Systems ROS Statement: Those systems with pertinent positive or pertinent negative responses have been documented in the HPI. ROS Other: All systems not noted in ROS Statement are negative. Past Medical History Past Medical History: Asthma History of Any Multi-Drug Resistant Organisms: None Reported Past Surgical History: No Surgical Hx Reported Additional Past Anesthesia/Blood Transfusion Reaction / Comment(s): no anesthesia or blood before Past Psychological History: No Psychological Hx Reported Smoking Status: Never smoker Past Alcohol Use History: None Reported Past Drug Use History: None Reported - Past Family History Father Family Medical History: Asthma General Exam Limitations: no limitations General appearance: alert, in no apparent distress, other (Physical well- developed, well-nourished adult female patient in no acute distress. Vital signs upon presentation are temperature 98.6F, pulse 89, respirations 18, blood pressure 158/107, pulse ox 99% on room air.) Eye exam: Present: normal appearance, PERRL, EOMI. Absent: scleral icterus, conjunctival injection, periorbital swelling ENT exam: Present: normal exam, normal oropharynx, mucous membranes moist, other (Patient does have dental caries to the left upper dentition. Gums are pink, no evidence of gingival hyperplasia or erythema. No evidence of drainable abscess.) Respiratory exam: Present: normal lung sounds bilaterally. Absent: respiratory distress, wheezes, rales, rhonchi, stridor Cardiovascular Exam: Present: regular rate, normal rhythm, normal heart sounds. Absent: systolic murmur, diastolic murmur, rubs, gallop, clicks Neurological exam: Present: alert, oriented X3, CN II-XII intact Psychiatric exam: Present: normal affect, normal mood Skin exam: Present: warm, dry, intact, normal color. Absent: rash Course Vital Signs 12/23/17 02:10 Temperature 98.6 F Pulse Rate 89 Respiratory 18 Rate Blood Pressure 158/107 O2 Sat by Pulse 99 Oximetry Medical Decision Making - Medical Decision Making 22-year-old female patient presents to the emergency department today for evaluation of left upper dental pain. Patient does have dental caries to the left upper dentition but no evidence of infection. No evidence of drainable abscess. No gingival hyperplasia or erythema. Patient is afebrile. She is 18 weeks and ALLERGIC to amoxicillin so we will hold off on antibiotics at this time since she does not show any evidence of acute infection. Patient has been taking Tylenol without relief of symptoms. We did discuss use of Tylenol with Codeine and risks of use during . We did discuss possibility of addiction. She did sign consent form to receive this medication. She verbalizes understanding of risks and agreed to accept the medication. She is instructed to follow-up with dentistry as soon as possible. Return parameters discussed in detail. She verbalizes understanding and agrees with this plan. Disposition Clinical Impression: Pain, dental Disposition: HOME SELF-CARE Condition: Good Instructions: Dental Caries (ED), Toothache (ED) Additional Instructions: Take medications as directed. Follow-up with dentist as soon as possible. Return here immediately for any new, worsening, or concerning symptoms. Prescriptions: Acetaminophen-Codeine 300-30mg [Tylenol #3] 1 tab PO Q6H PRN #8 tablet PRN Reason: Pain Is patient prescribed a controlled substance at d/c from ED?: No Referrals: Hyacinth Montero MD [Primary Care Provider] - 1-2 days Time of Disposition: 02:28
== END 2017-12-23 02:58 | disposition home or self-care (01) ==
LOC: EC 02:07
DX: O99.612 Diseases of the digestive system complicating pregnancy, second trimester (principal); K08.89 Other specified disorders of teeth and supporting structures; O99.512 Diseases of the respiratory system complicating pregnancy, second trimester; J45.909 Unspecified asthma, uncomplicated; Z3A.18 18 weeks gestation of pregnancy; Z88.0 Allergy status to penicillin
CPT/HCPCS: 99282

== ENCOUNTER 2017-12-26 00:30 | Emergency (ER) | payer MEDICAID, OTHER ==
[2017-12-26 00:42] VITALS: RESP 18; TEMP 98.8
[2017-12-26] MEDS ORDERED: ACETAMINOPHEN TAB 500 MG TAB PO STA (01:04)
[2017-12-26] MEDS ORDERED: MORPHINE SULFATE 2 MG/ML SYRINGE IM STA (01:16)
[2017-12-26] MEDS ORDERED: ONDANSETRON ODT 4 MG TAB PO STA (01:17)
[2017-12-26] MEDS ORDERED: CLINDAMYCIN 150 MG CAP PO STA (02:00)
--- NOTE | 2017-12-26 02:34 | ED ---
ENT HPI - General Chief complaint: Dental/Oral Stated complaint: Dental pain, high BP Time Seen by Provider: 12/26/17 00:57 Source: patient Mode of arrival: ambulatory Limitations: no limitations - History of Present Illness Initial comments: 22 years old female comes in now with the dental pain, she has a dental pain ongoing for about a 5 days now pain is on the left upper jaw in the molar region she was seen in the ER and given some Tylenol with codeine and she said is not helping him unfortunately she was not able to get in to see a dentist and she denies any trauma. She denies any fever no chills no trauma to the face - Related Data Home Medications Medication Instructions Recorded Confirmed Albuterol Inhaler [Ventolin Hfa 2 puff INHALATION RT-Q4H PRN 11/17/16 12/17/17 Inhaler] Albuterol Nebulized [Ventolin 2.5 mg INHALATION RT-Q4H PRN 05/02/17 12/17/17 Nebulized] Previous Rx's Medication Instructions Recorded Budesonide [Pulmicort] 0.5 mg INHALATION TID #20 neb 12/17/17 Budesonide [Pulmicort] 1 puff INHALATION BID #1 inhaler 12/17/17 Acetaminophen-Codeine 300-30mg 1 tab PO Q6H PRN #8 tablet 12/23/17 [Tylenol #3] Clindamycin [Cleocin] 150 mg PO Q6H #28 capsule 12/26/17 Allergies Allergy/AdvReac Type Severity Reaction Status Date / Time amoxicillin [Amoxicillin] Allergy Anaphylaxis Verified 12/23/17 02:11 Review of Systems ROS Statement: Those systems with pertinent positive or pertinent negative responses have been documented in the HPI. ROS Other: All systems not noted in ROS Statement are negative. Past Medical History Past Medical History: Asthma History of Any Multi-Drug Resistant Organisms: None Reported Past Surgical History: No Surgical Hx Reported Additional Past Anesthesia/Blood Transfusion Reaction / Comment(s): no anesthesia or blood before Past Psychological History: No Psychological Hx Reported Smoking Status: Never smoker Past Alcohol Use History: None Reported Past Drug Use History: None Reported - Past Family History Father Family Medical History: Asthma General Exam - General Exam Comments Initial Comments: General: The patient is awake and alert, in no distress, and does not appear acutely ill. Skin: Skin is warm and dry and no rashes or lesions are noted. Eye: Pupils are equal, round and reactive to light, extra-ocular movements are intact; there is normal conjunctiva bilaterally. Ears, nose, mouth and throat: Left upper jaw molar tooth seems partially missing and gum in the surrounding area is inflamed was some tenderness noticed over the left cheek and the same area Neck: The neck is supple, there is no tenderness or JVD. Cardiovascular: There is a regular rate and rhythm. No murmur, rub or gallop is appreciated. Respiratory: To auscultation bilateral, no wheezing no rhonchi no distress respiratory presley noticed Gastrointestinal: Soft, non-distended, non-tender abdomen without masses or organomegaly noted. There is no rebound or guarding present. Bowel sounds are unremarkable. Back: There is no tenderness to palpation in the midline. There is no obvious deformity. Musculoskeletal: Normal ROM, no tenderness, There is no pedal edema. There is no calf tenderness or swelling. No cords were appreciated. Neurological: CN II-XII intact, Cranial nerves III through XII are intact. There are no obvious motor or sensory deficits. Coordination appears grossly intact. Speech is normal. Psychiatric: Cooperative, appropriate mood & affect, normal judgment. Limitations: no limitations Course Vital Signs 12/26/17 00:39 Temperature 98.8 F Pulse Rate 100 Respiratory 18 Rate Blood Pressure 157/92 O2 Sat by Pulse 99 Oximetry Considering pain was quite excruciating she had used Tylenol with codeine without great deal of benefit morphine was offered in the ER I did discuss with the patient that is a category C considering that term patient decided to hold off the morphine she be gone home on a clindamycin 150 mg every 6 hours #28 she was advised to see the dentist tomorrow morning, she agreed with the Disposition Clinical Impression: Gingivitis, Pain, dental Disposition: HOME SELF-CARE Instructions: Toothache (ED) Additional Instructions: The pain I recommended that she takes Tylenol 750 mg by mouth every 8 hours when necessary Prescriptions: Clindamycin [Cleocin] 150 mg PO Q6H #28 capsule Is patient prescribed a controlled substance at d/c from ED?: No Referrals: Hyacinth Montero MD [Primary Care Provider] - 1-2 days
[2017-12-26 02:47] VITALS: BP 142/104; PULSE 87
== END 2017-12-26 02:47 | disposition home or self-care (01) ==
LOC: EC 00:30
DX: K05.10 Chronic gingivitis, plaque induced (principal); K08.89 Other specified disorders of teeth and supporting structures; J45.909 Unspecified asthma, uncomplicated; Z88.0 Allergy status to penicillin; Z53.20 Procedure and treatment not carried out because of patient's decision for unspecified reasons
CPT/HCPCS: 99283

== ENCOUNTER → 2017-12-29 | Outpatient (CLI) | payer MEDICAID, OTHER ==
--- NOTE | 2017-12-29 12:15 | US ---
EXAMINATION TYPE: US OB anatomy transabd DATE OF EXAM: 12/29/2017 COMPARISON: Ultrasound 10/21/2017 HISTORY: 22-year-old female O26.10 Low body mass index complicated Low BMI, 2, para 1 TECHNIQUE: Transabdominal (TA) FINDINGS: EXAM MEASUREMENTS: GESTATIONAL AGE / DATING Physician Established: (18 weeks/6 days) EDC: 05/26/2018 Dates by LMP: (18 weeks/5 days) EDC: 05/27/2018 Dates by First Scan: (18 weeks/2 days) EDC: 05/30/2018 Dates by Current Scan for: (18 weeks/5 days) EDC: 05/27/2018 SURVEY IUP: Single PLACENTA: Anterior PREVIA: No previa but slightly low lying measuring 3.3 cm from the internal cervical os. JOANA: 10.6 cm Low normal CERVICAL LENGTH (transabdominal: norm > 3.0cm): 3.9 cm BIOMETRY PRESENTATION: Breech LIE: Longitudinal BPD: 4.1 cm 18 weeks / 4 days HC: 15.3 cm 18 weeks / 3 days AC: 12.6 cm 18 weeks / 2 days FL: 3.0 cm 19 weeks / 2 days ESTIMATED WEIGHT IN GRAMS: 521 grams ESTIMATED WEIGHT IN LBS/OZ: 0 lbs. 9 oz. WEIGHT PERCENTAGE BASED ON ESTABLISHED DATE: 34 % HC/AC: 1.21 Normal FL/AC: 24% HEART RATE: 158 bpm RHYTHM: Normal ANATOMY SEEN (within normal limits): Lateral Vent (< 1 cm) 0.7 cm Cisterna Magna (< 1.1 cm) 0.5 cm Nuchal Fold (< 0.6 cm) 0.3 cm Cerebellum (varies with age) 1.6 cm Choroid Plexus (bilateral) Midline Falx Cavus Septi Pellucidi Four Chamber Heart Outflow tracts: LVOT Stomach Situs Nose / Lips Diaphragm Kidneys (bilateral) Bladder Cord Insert Three Vessel Cord Transverse Spine Arms (bilateral) Legs (bilateral) ANATOMY SUBOPTIMALLY VISUALIZED: Outflow tracts: RVOT Longitudinal spine: skin line especially along the lumbosacral region not well delineated. MOLD FILLER NOTES: Placenta: multiple hypoechoic areas with largest measuring 1.7cm, possible placental lakes. Multiple hypoechoic areas posterior and inferior to placenta, some color flow seen. Possibly promi nent vasculature. This can be reassessed at followup. Viable single IUP measuring 18 weeks 5 days with a heart rate of of 158bpm and an estimated delivery date of 05/27/2018. IMPRESSION: 1. Single live intrauterine with established gestational age of 18 weeks 6 days. There has been appropriate interval growth and current ultrasound biometry is concordant (18 weeks 5 days) plac ing the gestation at the 34th percentile for weight. 2. A couple of the structures on the survey were suboptimally visualized (RVOT and longitudinal spine). If desired, the patient can be brought back for a rescan in one to 2 weeks. Otherwise, the r emaining structures appear normal. 3. Slightly low anterior placenta measuring 3.3 cm from the internal cervical os. 4. Prominent hypoechoic areas along the surface of the placenta measuring up to 1.7 cm, possible plac ental lakes. Follow-up can be considered as old hematomas or small chorioangiomas are also considerat ions. 5. Hypoechoic areas deep to the placenta seem to be located within the myometrium, likely prominent v essels. This can also be reassessed at the patient's follow-up.
== END | disposition home or self-care (01) ==
LOC: RADUSWWP 09:37
PROVIDERS: ATTEND Obstetrics & Gynecology
DX: O44.42 Low lying placenta NOS or without hemorrhage, second trimester (principal); O28.3 Abnormal ultrasonic finding on antenatal screening of mother; Z3A.18 18 weeks gestation of pregnancy
CPT/HCPCS: 76811

== ENCOUNTER 2018-01-18 06:21 | Emergency (ER) | payer MEDICAID, OTHER ==
[2018-01-18 06:33] VITALS: TEMP 98.3
--- NOTE | 2018-01-18 06:52 | ED ---
General Adult HPI - General Source: patient Mode of arrival: ambulatory Limitations: no limitations <Jameson Lei - Last Filed: 01/18/18 06:52> <Chris Wilson - Last Filed: 01/18/18 08:46> - General Chief complaint: Upper Respiratory Infection Stated complaint: SOB, 21 wks pgt - History of Present Illness Initial comments: Dictation was produced using [employer] dictation software. please excuse any grammatical, word or spelling errors. Chief Complaint: 32-year-old -Tongan female presents with chest pain and difficulty in breathing. She is allegedly 20 weeks . History of Present Illness: Is a 22-year-old -Tongan female who was allegedly 20 weeks based on last measure. Presents with chest pain shortness of breath. Patient states she's been having difficulty breathing that 's worse with lying flat. Denies any persistent cough that's productive of sputum. She does report some chest pain to her left anterior and left lateral chest. Patient is worsened with deep inspiration. She was evaluated for the same set symptoms proximally one month ago for a CT angios the chest was performed. Patient states she is 20 weeks based on last menstrual period. She is currently on any vitamins. Patient has a history of asthma however she feels like her breathing treatments on working. The ROS documented in this emergency department record has been reviewed and confirmed by me. Those systems with pertinent positive or negative responses have been documented in the HPI. All other systems are other negative and/or noncontributory. (Jameson Lei) - Related Data Home Medications Medication Instructions Recorded Confirmed Albuterol Inhaler [Ventolin Hfa 2 puff INHALATION RT-Q4H PRN 11/17/16 01/18/18 Inhaler] Albuterol Nebulized [Ventolin 2.5 mg INHALATION RT-Q4H 05/02/17 01/18/18 Nebulized] Budesonide [Pulmicort] 0.5 mg INHALATION RT-BID 01/18/18 01/18/18 Allergies Allergy/AdvReac Type Severity Reaction Status Date / Time amoxicillin [Amoxicillin] Allergy Anaphylaxis Verified 01/18/18 08:21 Review of Systems ROS Other: All systems not noted in ROS Statement are negative. <Jameson Lei - Last Filed: 01/18/18 06:52> ROS Other: All systems not noted in ROS Statement are negative. <Chris Wilson - Last Filed: 01/18/18 08:46> ROS Statement: Those systems with pertinent positive or pertinent negative responses have been documented in the HPI. Past Medical History Past Medical History: Asthma History of Any Multi-Drug Resistant Organisms: None Reported Past Surgical History: No Surgical Hx Reported Additional Past Anesthesia/Blood Transfusion Reaction / Comment(s): no anesthesia or blood before Past Psychological History: No Psychological Hx Reported Smoking Status: Never smoker Past Alcohol Use History: None Reported Past Drug Use History: None Reported - Past Family History Father Family Medical History: Asthma <Jameson Lei - Last Filed: 01/18/18 06:52> General Exam Limitations: no limitations <Jameson Lei - Last Filed: 01/18/18 06:52> <Chris Wilson - Last Filed: 01/18/18 08:46> - General Exam Comments Initial Comments: PHYSICAL EXAM: General Impression: Alert and oriented x3, not in acute distress HEENT: Normocephalic atraumatic, extra-ocular movements intact, pupils equal and reactive to light bilaterally, mucous membranes moist. Cardiovascular: Heart regular rate and rhythm, S1&S2 audible, no murmurs, rubs or gallops Chest: Lungs clear to auscultation bilaterally, no rhonchi, no wheeze, no rales Abdomen: Bowel sounds present, abdomen soft, non-tender, non-distended, no organomegaly, uterus appears consistent with stated age Musculoskeletal: Pulses present and equal in all extremities, no peripheral edema Motor: Power 5/5 bilaterally, no focal deficits noted Neurological: CN II-XII grossly intact, no focal motor or sensory deficits noted Skin: Intact with no visualized rashes Psych: Normal affect and mood (Jameson Lei) Vital Signs 01/18/18 01/18/18 06:27 06:36 Temperature 98.3 F Pulse Rate 100 Respiratory 16 16 Rate Blood Pressure 136/91 O2 Sat by Pulse 95 Oximetry Medical Decision Making <Jameson Lei - Last Filed: 01/18/18 06:52> - Lab Data Result diagrams: 01/18/18 07:32 01/18/18 07:32 <Chris Wilson - Last Filed: 01/18/18 08:46> - Medical Decision Making ED course: 22-year-old Rican female allegedly 20 weeks presents with chest pain shortness of breath. Vital signs upon arrival shows mild tachycardia with a heart rate of 100, respiratory signs within normal limits. Patient is not hypoxic. Physical examination shows well-appearing female in no acute distress. Auscultation of lungs bilaterally are clear. Patient having any lower extremities symptoms to suggest DVT. Patient was scan for pulmonary emboli last month with negative results. There is low clinical suspicion that patient's symptoms are significant for PE at this time. Patient having orthopneic symptoms. There is some concern that this may represent cardiomyopathy associated with . EKG Interpretation: A 12 lead EKG was obtained. It was interpreted by myself and attending physician. There is a P wave before every QRS complex. Rate is [default value]. Rhythm is [default value]. QT is not prolonged. No ST segment depression or elevation. This EKG was compared to a previous EKG that was obtained on [ default value] and showed no significant change. Overall, this EKG is unremarkable (Jameson Lei) I went into reevaluate the patient patient's oxygenation was 100% she walked around the ER I listened to her again she little bit of wheezing the right side so I'm going to give her a another treatment and send her home. Patient did not want steroids because she is 21 weeks . (Chris Wilson) - Lab Data Lab Results 01/18/18 01/18/18 01/18/18 Range/Units 07:32 07:32 07:32 WBC 9.4 (3.8-10.6) k/uL RBC 4.38 (3.80-5.40) m/uL Hgb 13.0 (11.4-16.0) gm/dL Hct 41.1 (34.0-46.0) % MCV 93.7 (80.0-100.0) fL MCH 29.8 (25.0-35.0) pg MCHC 31.8 (31.0-37.0) g/dL RDW 12.9 (11.5-15.5) % Plt Count 271 (150-450) k/uL Neutrophils % 65 % Lymphocytes % 22 % Monocytes % 5 % Eosinophils % 7 % Basophils % 0 % Neutrophils # 6.1 (1.3-7.7) k/uL Lymphocytes # 2.1 (1.0-4.8) k/uL Monocytes # 0.5 (0-1.0) k/uL Eosinophils # 0.6 (0-0.7) k/uL Basophils # 0.0 (0-0.2) k/uL Sodium 137 (137-145) mmol/L Potassium 4.2 (3.5-5.1) mmol/L Chloride 110 H (98-107) mmol/L Carbon Dioxide 20 L (22-30) mmol/L Anion Gap 7 mmol/L BUN 5 L (7-17) mg/dL Creatinine 0.43 L (0.52-1.04) mg/dL Est GFR (CKD-EPI)AfAm >90 (>60 ml/min/1.73 sqM) Est GFR (CKD-EPI)NonAf >90 (>60 ml/min/1.73 sqM) Glucose 82 (74-99) mg/dL Calcium 9.2 (8.4-10.2) mg/dL Magnesium 1.8 (1.6-2.3) mg/dL Troponin I (0.000-0.034) ng/mL NT-Pro-B Natriuret Pep 21 pg/mL 01/18/18 Range/Units 07:32 WBC (3.8-10.6) k/uL RBC (3.80-5.40) m/uL Hgb (11.4-16.0) gm/dL Hct (34.0-46.0) % MCV (80.0-100.0) fL MCH (25.0-35.0) pg MCHC (31.0-37.0) g/dL RDW (11.5-15.5) % Plt Count (150-450) k/uL Neutrophils % % Lymphocytes % % Monocytes % % Eosinophils % % Basophils % % Neutrophils # (1.3-7.7) k/uL Lymphocytes # (1.0-4.8) k/uL Monocytes # (0-1.0) k/uL Eosinophils # (0-0.7) k/uL Basophils # (0-0.2) k/uL Sodium (137-145) mmol/L Potassium (3.5-5.1) mmol/L Chloride (98-107) mmol/L Carbon Dioxide (22-30) mmol/L Anion Gap mmol/L BUN (7-17) mg/dL Creatinine (0.52-1.04) mg/dL Est GFR (CKD-EPI)AfAm (>60 ml/min/1.73 sqM) Est GFR (CKD-EPI)NonAf (>60 ml/min/1.73 sqM) Glucose (74-99) mg/dL Calcium (8.4-10.2) mg/dL Magnesium (1.6-2.3) mg/dL Troponin I <0.012 (0.000-0.034) ng/mL NT-Pro-B Natriuret Pep pg/mL Disposition <Jameson Lei - Last Filed: 01/18/18 06:52> Is patient prescribed a controlled substance at d/c from ED?: No Time of Disposition: 08:46 <Chris Wilson - Last Filed: 01/18/18 08:46> Clinical Impression: Asthma exacerbation Disposition: HOME SELF-CARE Condition: Good Instructions: Asthma (ED) Referrals: Hyacinth Montero MD [Primary Care Provider] - 1-2 days
--- NOTE | 2018-01-18 07:40 | XR ---
EXAMINATION TYPE: XR chest 2V DATE OF EXAM: 01/18/2018 COMPARISON: 05/02/2017 INDICATION: Pain TECHNIQUE: Frontal and lateral views of the chest are obtained. FINDINGS: The heart size is normal. The pulmonary vasculature is normal. The lungs are clear. EKG leads overlie the chest. IMPRESSION: 1. No acute pulmonary process.
[2018-01-18 07:50] LABS: Basophils % (A) 0 %; Eosinophils # (A) 0.6 k/uL (0-0.7); Eosinophils % (A) 7 %; HCT 41.1 % (34.0-46.0); Lymphocytes # (A) 2.1 k/uL (1.0-4.8); Lymphocytes % (A) 22 %; MCH 29.8 pg (25.0-35.0); MCHC 31.8 g/dL (31.0-37.0); MCV 93.7 fL (80.0-100.0); Mean Platelet Volume 6.9; Monocytes # (A) 0.5 k/uL (0-1.0); Monocytes % (A) 5 %; Neutrophils # (A) 6.1 k/uL (1.3-7.7); Neutrophils % (A) 65 %; Platelet Count 271 k/uL (150-450); RBC 4.38 m/uL (3.80-5.40); RDW 12.9 % (11.5-15.5); WBC 9.4 k/uL (3.8-10.6)
[2018-01-18 08:03] LABS: Anion Gap 7 mmol/L; Blood Urea Nitrogen 5 mg/dL (7-17); Calcium 9.2 mg/dL (8.4-10.2); Carbon Dioxide 20 mmol/L (22-30); Chloride 110 mmol/L (98-107); Glucose 82 mg/dL (74-99); Magnesium 1.8 mg/dL (1.6-2.3); Potassium 4.2 mmol/L (3.5-5.1); Sodium 137 mmol/L (137-145)
[2018-01-18] MEDS ORDERED: IPRATROPIUM-ALBUTEROL 3 ML NEB INHALATION STA (08:46)
[2018-01-18 09:25] VITALS: BP 141/99; PULSE 88; RESP 18
== END 2018-01-18 09:25 | disposition home or self-care (01) ==
LOC: EC 06:21
DX: O99.512 Diseases of the respiratory system complicating pregnancy, second trimester (principal); J45.901 Unspecified asthma with (acute) exacerbation; O99.89 Other specified diseases and conditions complicating pregnancy, childbirth and the puerperium; R00.0 Tachycardia, unspecified; Z79.51 Long term (current) use of inhaled steroids; Z79.899 Other long term (current) drug therapy; Z88.0 Allergy status to penicillin; Z82.5 Family history of asthma and other chronic lower respiratory diseases; Z3A.21 21 weeks gestation of pregnancy
CPT/HCPCS: 36415; 71046; 80048; 83735; 83880; 84484; 85025; 93005; 94640; 99213; 99284

== ENCOUNTER 2018-01-18 09:28 | Outpatient (CLI) | payer MEDICAID, OTHER ==
[2018-01-18 10:06] VITALS: BP 144/76; PULSE 88; RESP 18; TEMP 98.5
--- NOTE | 2018-02-20 11:44 | P.MSEPDOC ---
Presenting Problems - Arrival Data Date of Arrival on Unit: 01/18/18 Time of Arrival on Unit: 09:28 Mode of Transport: Wheelchair - Complaint OB-Reason for Admission/Chief Complaint: Other Comment: difficulty finding heart tones in ER Medical History - Information : 4 Para: 1 Term: 1 : 0 Abortions: Spontaneous or Elective: 2 Number of Living Children: 1 - Gestational Age Gestational Age by GLYNN (wks/days): 21 Weeks and 5 Days Review of Systems - Review of Systems Constitutional: No problems Breast: No problems ENT: No problems Cardiovascular: No problems Respiratory: No problems Gastrointestinal: No problems Genitourinary: No problems Musculoskeletal: No problems Neurological: No problems Skin: No problems Vital Signs - Temperature Temperature: 98.5 F Temperature Source: Temporal Artery Scan - Pulse Right Brachial Pulse Rate: 88 Pulse Assessment Method: Automatic Cuff - Respirations Respiratory Rate: 18 Oxygen Delivery Method: Room Air - Blood Pressure Right Arm Blood Pressure: 144/76 Blood Pressure Mean: 98 Blood Pressure Source: Automatic Cuff Medical Screen Scoring (Pre) - Cervical Exam Dilation: Exam Deferred Effacement: Exam Deferred Membranes: Intact - Uterine Contractions Frequency: N/A Duration: N/A Intensity: N/A - Maternal Vital Signs Maternal Temperature: N/A Signs of Preeclampsia: N/A Maternal Respirations: N/A - Pain Assessment Pain Scale Used: Numeric (1 - 10) Pain Intensity: 0 - Total Score Total Score (Pre): 0 - Level of Risk Level of Risk: N/A Physician Notification (Pre) - Physician Notified Physician Notified Date: 01/18/18 Physician Notified Time: 09:45 Physician/Practitioner Notifed:: Dr. Parra Spoke With: Dr. Parra New Order Received: Yes - Notification Comment Comment: discharge pt home Disposition - Disposition OB Disposition: Discharge to home, Written follow up instructions reviewed Discharge Date: 01/18/18 Discharge Time: 09:50 I agree with the RN Medical Screening Exam: Yes Risk & Benefit of care provided described in d/c instruction: Yes Diagnosis: 21 WEEKS GESTATION OF
== END 2018-01-18 09:50 | disposition home or self-care (01) ==
LOC: FBPOP 09:28
PROVIDERS: ATTEND Obstetrics & Gynecology
DX: O26.92 Pregnancy related conditions, unspecified, second trimester (principal); Z3A.21 21 weeks gestation of pregnancy; Z53.9 Procedure and treatment not carried out, unspecified reason
CPT/HCPCS: 99213

== ENCOUNTER 2018-02-28 02:29 | Inpatient (IN) | payer MEDICAID, OTHER ==
[2018-02-28] MEDS ORDERED: CITRIC ACID-SODIUM CITRATE 15 ML CUP PO ONE (02:42)
[2018-02-28] MEDS ORDERED: ceFAZolin IN SWFI 2 GM/20 ML SYRINGE IVP ONE (02:42)
[2018-02-28] MEDS ORDERED: CLINDAMYCIN 900 MG in DEXTROSE 5% IN WATER 50 ML IVPB STA ×4 (02:47→02:48)
[2018-02-28] MEDS: BETAMET ACET-BETAMETH SOD PHOS 6 MG/ML VIAL IM SCH ×2 (03:01→21:10)
[2018-02-28] MEDS: LACTATED RINGERS 1,000 ML IV SCH ×8 (03:01→17:38)
--- NOTE | 2018-02-28 03:17 | P.HPOB ---
History of Present Illness H&P Date: 02/28/18 Chief Complaint: 27+ weeks, acute vaginal bleeding, acute pain The patient is a 23-year-old 2 para 1001 who presents to triage with acute vaginal bleeding first noted in triage but proceeded by significant abdominal pain prompting her presentation to triage. Her has reportedly been uncomplicated and she has had care with Dr. Majano in the [place] area. She denies any etiologic factors for what is a presumptive marginal abruption of the placenta to include alcohol, drugs, trauma of any kind, or any other precipitating factor. She is currently having a moderate amount of vaginal bleeding. Bedside ultrasound performed by myself demonstrates a vertex presentation. Formal ultrasound examination is pending at this time. labs are being drawn. The patient denies any history of placenta previa. Obstetrical history: 2 para 1001 with 1 previous uncomplicated term delivery. Current statistics are listed in history present illness. No labs are available at this time though she does not report receiving RhoGAM in her first . She denies any complications with this to this point. Gynecologic history: Noncontributory at this time. Review of Systems Review of systems is confined to history of present illness. Past Medical History Past Medical History: Asthma History of Any Multi-Drug Resistant Organisms: None Reported Past Surgical History: No Surgical Hx Reported Additional Past Anesthesia/Blood Transfusion Reaction / Comment(s): no anesthesia or blood before Smoking Status: Never smoker - Past Family History Father Family Medical History: Asthma Medications and Allergies Home Medications Medication Instructions Recorded Confirmed Type RX: Albuterol Inhaler [Ventolin 2 puff INHALATION RT-Q4H PRN 11/17/16 02/28/18 History Hfa Inhaler] RX: Albuterol Nebulized [Ventolin 2.5 mg INHALATION RT-Q4H 05/02/17 02/28/18 History Nebulized] Budesonide [Pulmicort] 0.5 mg INHALATION RT-BID 01/18/18 02/28/18 History Pnv,Calcium 72/Iron/Folic Acid 1 tab PO DAILY 01/18/18 01/18/18 History [ Plus Tablet] Allergies Allergy/AdvReac Type Severity Reaction Status Date / Time amoxicillin [Amoxicillin] Allergy Anaphylaxis Verified 02/28/18 02:40 Exam Vital Signs Temp 02/28/18 02:30 97.7 F Intake and Output 02/27/18 02/27/18 02/28/18 14:59 22:59 06:59 Other: Weight 48.081 kg In general, this is a well-developed, well-nourished -Gabonese female in significant discomfort. Her heart has a regular rhythm and rate without murmur. Her lungs are clear to auscultation bilaterally in all schulte. Her abdomen is nondistended with the uterus is rigid and tender to palpation. There are no other palpable masses aside from uterine fundus. Her extremities are without any cyanosis, clubbing, or edema and are nontender to palpation bilaterally. Digital cervical examination is deferred at this time pending the outcome of ultrasound for placental location. Assessment and Plan (1) 27 weeks gestation of Current Visit: Yes Status: Acute Code(s): Z3A.27 - 27 WEEKS GESTATION OF SNOMED Code(s): 81123092 (2) Vaginal bleeding during Current Visit: Yes Status: Acute Code(s): O46.90 - ANTEPARTUM HEMORRHAGE, UNSPECIFIED, UNSPECIFIED TRIMESTER SNOMED Code(s): 80984947702303366 (3) Placental abruption in second trimester Current Visit: Yes Status: Acute Code(s): O45.92 - PREMATURE SEPARATION OF PLACENTA, UNSP, SECOND TRIMESTER SNOMED Code(s): 257806567 Plan: The patient will be admitted for active management of the ongoing problem. Currently, heart tones are reassuring for 27 weeks of gestation. She continues to have a moderate amount of vaginal bleeding. Antibody prophylaxis has been started as has the first dose of betamethasone. labs have been drawn. Complete obstetrical ultrasound is pending. Close observation will be continued and the patient and her family are aware that delivery may become necessary pending the status of the fetus. Should there be evidence of compromise, section will be carried out. Once we are certain that there is no placenta previa, we may tentatively checked her cervix for dilation.
[2018-02-28] MEDS ORDERED: PROPOFOL 10 MG/ML 20 ML VIAL IV ONE (03:34)
[2018-02-28] MEDS ORDERED: ePHEDrine SULFATE/0.9% NACL/PF 50 MG/5 ML SYRINGE IV ONE (03:34)
[2018-02-28] MEDS ORDERED: OXYTOCIN 10 UNIT/ML 1 ML VIAL ONE (03:34)
[2018-02-28] MEDS ORDERED: fentaNYL (PF) 50 MCG/ML 2 ML AMP ONE (03:34)
[2018-02-28] MEDS ORDERED: SUCCINYLCHOLINE CHLORIDE 100 MG/5 ML SYR IV ONE (03:34)
[2018-02-28] MEDS ORDERED: ONDANSETRON 4 MG/2 ML VIAL ONE (03:34)
[2018-02-28] MEDS ORDERED: METOCLOPRAMIDE 5 MG/ML 2 ML VIAL IVP PRN (04:29)
[2018-02-28] MEDS ORDERED: ONDANSETRON 4 MG/2 ML VIAL IVP PRN (04:29)
[2018-02-28] MEDS ORDERED: ZOLPIDEM 5 MG TAB PO PRN (04:29)
[2018-02-28] MEDS ORDERED: diphenhydrAMINE 25 MG CAP PO PRN (04:29)
[2018-02-28] MEDS ORDERED: SIMETHICONE 80 MG CHEWABLE PO PRN (04:29)
[2018-02-28] MEDS ORDERED: NALOXONE 0.4 MG/ML 1 ML VIAL IV PRN (04:29)
[2018-02-28] MEDS ORDERED: HYDROcodone/APAP 5-325MG 1 EACH TAB PO PRN (04:29)
[2018-02-28] MEDS ORDERED: diphenhydrAMINE 50 MG CAP PO PRN (04:29)
[2018-02-28] MEDS ORDERED: diphenhydrAMINE 50 MG/ML 1 ML VIAL IVP PRN ×2 (04:29)
[2018-02-28] MEDS ORDERED: ACETAMINOPHEN TAB 325 MG TAB PO PRN (04:29)
[2018-02-28] MEDS ORDERED: OXYTOCIN 20 UNITS/1000 ML NS 1,000 ML IV SCH (04:30)
--- NOTE | 2018-02-28 04:42 | P.OP ---
Date of Procedure: 02/28/18 Preoperative Diagnosis: #1. 27+ weeks intrauterine #2. Placental abruption #3. No local care Postoperative Diagnosis: Same Procedure(s) Performed: #1. Primary low-transverse section Anesthesia: CRISTINA Surgeon: Freddy Brown Fiberglass Boat Maker #1: Pollo Karimi Estimated Blood Loss (ml): 800 IV fluids (ml): 1,000 Urine output (ml): 50 Pathology: other (Placenta) Condition: stable Disposition: floor Operative Findings: The patient was admitted with acute vaginal bleeding and a tonic uterus was significant discomfort. Though the heart tones were relatively stable, decision was made to take her to the operating room for section as the process appeared to be ongoing and not likely to stabilize. In the operating room, she was delivered of a viable 2 lbs. 6 oz. baby girl with Apgars of 2 at 1 minute 7 at 5 minutes and 8 at 10 minutes delivered in the vertex presentation. At least half or more of the placenta was noted to be disengaged from the wall of the uterus with a significant amount of blood and clot in the uterus. The fluid appeared to be either slightly blood-tinged or meconium- stained. The uterus itself appeared Couvelaire in nature as is classic for placental abruption. The uterus, tubes, and ovaries were otherwise normal. The placenta was delivered manually and intact though, has noted above it was at least half from the uterine wall. Description of Procedure: The patient was prepped and draped and general anesthesia was administered by the anesthesiologist. A Pfannenstiel incision was made and extended into the abdominal cavity without difficulty. The bladder was distal to the site of incision and uterus was opened with a transverse incision of approximately 2-3 cm and then extended bluntly. The head was encountered from in the incision and, after rupture of membranes, the fetus was delivered onto the field where the cord was doubly clamped, cut, and the infant passed for resuscitative measures with weight and Apgars as noted above. A segment of cord was doubly clamped, cut, and set aside should cord gases be requested. The placenta was then delivered manually and intact though half of it was disengaged from the uterine interface as noted above. There was a significant amount of clot within and around the uterine cavity. The uterus was exteriorized and the Couvelaire nature of the uterus was noted. The margins of the incision were grasped with Alvarado clamps and the incision was closed in 2 layers. The first layer was a running locking stitch of 0 chromic catgut followed by a running imbricating layer of 0 chromic catgut, each from margin to margin. There was some bleeding noted to be at the left angle of the incision which was made hemostatic with 2 [id number] stitches of 0 chromic catgut as well as the Bovie. The posterior cul-de-sac was then suctioned with a guard and there was noted to be a significant amount of blood and clot in the cul-de-sac which was removed both manually and with the suction and with laparotomy sponges. Once all clot was removed from behind and lateral to the uterus, the uterus was replaced within the abdominal cavity and the gutters swept of any remaining blood, fluid, or clot. It was at that point that the left angle of the incision was noted to have continued oozing and that the second [id number] stitch of 0 chromic catgut was placed which ultimately controlled the bleeding. Any other small points of bleeding were made hemostatic with the Bovie. Once hemostasis was assured, the parietal peritoneum was loosely reapproximated in the layer of muscles examined and found to be hemostatic. The fascia was closed with a single running stitch of 0 Vicryl proceeding from margin to margin. The subcutaneous tissues were irrigated, made hemostatic with the Bovie, and not close as there were less than 1 cm in depth. The skin was reapproximated with a running subcuticular stitch of 4-0 Vicryl followed by half-inch Steri-Strips placed with Mastisol. Estimated blood loss for the case was approximately 800 mL including the clot. All sponge, instrument, and needle counts were correct. The patient tolerated the procedure well and proceeded to the recovery room in stable condition. Both mother and infant are resting comfortably in recovery of the has been intubated and will shortly be transported to a tertiary care center. The tertiary care nurses were present at the delivery as was the kettle firer. There were no complications to the procedure aside from the urgent nature of the abrupting placenta.
[2018-02-28 04:47] LABS: Basophils % (A) 0 %; Eosinophils # (A) 0.4 k/uL (0-0.7); Eosinophils % (A) 3 %; HCT 36.3 % (34.0-46.0); HGB 11.5 gm/dL (11.4-16.0); Hypochromasia Slight; Lymphocytes # (A) 2.9 k/uL (1.0-4.8); Lymphocytes % (A) 20 %; MCH 30.5 pg (25.0-35.0); MCHC 31.8 g/dL (31.0-37.0); MCV 96.1 fL (80.0-100.0); Mean Platelet Volume 7.6; Monocytes # (A) 0.8 k/uL (0-1.0); Monocytes % (A) 6 %; Neutrophils # (A) 10.2 k/uL (1.3-7.7); Neutrophils % (A) 71 %; Platelet Count 189 k/uL (150-450); RBC 3.78 m/uL (3.80-5.40); RDW 12.7 % (11.5-15.5); WBC 14.4 k/uL (3.8-10.6)
[2018-02-28] MEDS: HYDROmorphone PCA 5 MG/25 ML SYRINGE IV PRN ×2 (05:17→10:55)
[2018-02-28 05:41] VITALS: BMI 19.3
[2018-02-28] MEDS: SENNOSIDES-DOCUSATE SODIUM 1 EACH TAB PO SCH ×2 (08:00→21:07)
[2018-02-28] MEDS: KETOROLAC 30 MG/ML 1 ML VIAL IVP PRN ×3 (08:05→23:02)
[2018-02-28 08:50] LABS: HCT 27.4 % (34.0-46.0); MCH 31.4 pg (25.0-35.0); MCHC 33.1 g/dL (31.0-37.0); MCV 94.7 fL (80.0-100.0); Mean Platelet Volume 7.4; Platelet Count 131 k/uL (150-450); RBC 2.89 m/uL (3.80-5.40); RDW 12.7 % (11.5-15.5); WBC 15.8 k/uL (3.8-10.6)
[2018-02-28 08:51] LABS: HGB 9.1 gm/dL (11.4-16.0)
[2018-02-28 12:21] LABS: Hepatitis B Surface AB- Quant 3.5 mIU/mL
[2018-02-28 12:45] LABS: HIV 1 AB Non-Reactive (Non-Reactive); HIV AB P24 Non-Reactive (Non-Reactive); HIV P24 AG Non-Reactive (Non-Reactive)
[2018-02-28 13:05] LABS: Appearance,Urine Clear (Clear); Bilirubin,Urine Negative (Negative); Blood,Urine Large (Negative); Color,Urine Yellow; Glucose,Urine (UA) 4+ (Negative); Ketones,Urine Negative (Negative); Leukocyte Esterase,Urine Negative (Negative); Mucus,Urine Rare /hpf; Nitrite,Urine Negative (Negative); Protein,Urine Trace (Negative); RBC,Urine 48 /hpf (0-5); Specific Gravity,Urine 1.013 (1.001-1.035); Urobilinogen,Urine <2.0 mg/dL (<2.0); WBC,Urine 4 /hpf (0-5)
[2018-02-28 13:09] LABS: Amphetamine Screen,Urine Not Detected (NotDetected); Barbiturate Screen,Urine Not Detected (NotDetected); Benzodiazepines Screen,Urine Not Detected (NotDetected); Cocaine Screen,Urine Not Detected (NotDetected); Methadone Screen, Urine Not Detected (NotDetected); Opiate Screen,Urine Detected (NotDetected); Oxycodone Screen, Urine Not Detected (NotDetected); Phencyclidine Screen,Urine Not Detected (NotDetected); Tricyclic Antidepressant,Urine Not Detected (NotDetected); Urn Cannabinoid Scrn Not Detected (NotDetected)
[2018-03-01] MEDS: KETOROLAC 30 MG/ML 1 ML VIAL IVP PRN ×3 (05:01→17:36)
[2018-03-01] MEDS: HYDROcodone/APAP 7.5-325MG 1 EACH TAB PO PRN ×3 (07:57→20:53)
--- NOTE | 2018-03-01 08:59 | P.PNOBGPC ---
Subjective - Subjective Patient reports: Reports appetite normal, Reports voiding normally, Reports pain well controlled, Reports ambulating normally : doing well, in NICU (Infant is reportedly doing well at [facility] and may be extubated today.) Objective - Vital Signs Latest vital signs: Vital Signs Temp Pulse Resp BP Pulse Ox 03/01/18 04:00 98.2 F 90 16 112/57 98 03/01/18 02:00 14 03/01/18 00:00 98.4 F 86 16 129/83 98 02/28/18 22:00 16 02/28/18 20:00 97.5 F L 97 16 137/78 98 02/28/18 16:00 97.7 F 82 16 127/87 100 02/28/18 11:39 97.7 F 83 20 115/77 99 Intake and Output 02/28/18 03/01/18 03/01/18 22:59 06:59 14:59 Intake Total 60 Output Total 1300 Balance -1240 Intake: Oral 60 Output: Urine 1300 Uretheral (Farias) 400 Other: # Voids 1 1 - Exam Extremities: Present: normal Abdomen: Present: normal appearance, soft. Absent: distention, tenderness Incision: Present: normal, dry (Slight oozing from right aspect of the incision. ), intact Uterus: Present: normal, firm (The uterine fundus as tonic and well below the umbilicus.) - Labs Labs: Abnormal Lab Results - Last 24 Hours (Table) 02/28/18 Range/Units 12:30 Urine Protein Trace H (Negative) Urine Glucose (UA) 4+ H (Negative) Urine Blood Large H (Negative) Urine RBC 48 H (0-5) /hpf Urine Mucus Rare H (None) /hpf Urine Opiates Screen Detected H (NotDetected) U Methamphetamines Scrn Detected H (NotDetected) Assessment and Plan (1) 27 weeks gestation of Current Visit: Yes Status: Acute Code(s): Z3A.27 - 27 WEEKS GESTATION OF SNOMED Code(s): 27913454 (2) Vaginal bleeding during Current Visit: Yes Status: Acute Code(s): O46.90 - ANTEPARTUM HEMORRHAGE, UNSPECIFIED, UNSPECIFIED TRIMESTER SNOMED Code(s): 56859833553827307 (3) Placental abruption in second trimester Current Visit: Yes Status: Acute Code(s): O45.92 - PREMATURE SEPARATION OF PLACENTA, UNSP, SECOND TRIMESTER SNOMED Code(s): 551342243 (4) Status post section Current Visit: Yes Status: Acute Code(s): Z98.891 - HISTORY OF UTERINE SCAR FROM PREVIOUS SURGERY SNOMED Code(s): 686103241 Plan: Continue routine postoperative care. CBC for today is pending though her vital signs are stable. I have encouraged her to ambulate in the halls at least 4 times daily. Otherwise she is performing all activities of daily living. Possible discharge home tomorrow pending her CBC and any ongoing concerns.
[2018-03-01 09:19] LABS: Basophils % (A) 0 %; Eosinophils % (A) 0 %; HCT 22.4 % (34.0-46.0); HGB 7.1 gm/dL (11.4-16.0); Lymphocytes # (A) 1.4 k/uL (1.0-4.8); Lymphocytes % (A) 10 %; MCH 30.2 pg (25.0-35.0); MCHC 31.9 g/dL (31.0-37.0); MCV 94.6 fL (80.0-100.0); Mean Platelet Volume 8.5; Monocytes # (A) 0.7 k/uL (0-1.0); Monocytes % (A) 5 %; Neutrophils # (A) 11.9 k/uL (1.3-7.7); Neutrophils % (A) 84 %; Platelet Count 156 k/uL (150-450); RBC 2.37 m/uL (3.80-5.40); RDW 13.3 % (11.5-15.5); WBC 14.2 k/uL (3.8-10.6)
[2018-03-01] MEDS: SENNOSIDES-DOCUSATE SODIUM 1 EACH TAB PO SCH ×2 (10:22→20:54)
[2018-03-01] MEDS: IBUPROFEN 600 MG TAB PO PRN (23:46)
[2018-03-02] MEDS: HYDROcodone/APAP 7.5-325MG 1 EACH TAB PO PRN ×4 (03:48→23:43)
[2018-03-02 07:40] LABS: HCT 21.3 % (34.0-46.0); Hypochromasia Slight; MCH 31.2 pg (25.0-35.0); MCHC 32.4 g/dL (31.0-37.0); MCV 96.1 fL (80.0-100.0); Mean Platelet Volume 8.1; Platelet Count 148 k/uL (150-450); RBC 2.21 m/uL (3.80-5.40); RDW 13.3 % (11.5-15.5)
[2018-03-02 07:43] LABS: HGB 6.9 gm/dL (11.4-16.0)
[2018-03-02] MEDS: IBUPROFEN 600 MG TAB PO PRN ×3 (07:44→20:22)
--- NOTE | 2018-03-02 08:41 | P.PNOBGPC ---
Subjective - Subjective Interval history: The patient continues report moderate discomfort though it is improved from yesterday. She denies any symptoms of orthostasis and is ambulating regularly. Patient reports: Reports appetite normal, Reports voiding normally, Reports pain well controlled, Reports ambulating normally [place]: doing well, in NICU (Transferred to [facility] for issues of prematurity.) Objective - Vital Signs Latest vital signs: Vital Signs Temp Pulse Resp BP Pulse Ox 03/02/18 08:00 98.2 F 83 16 137/76 99 03/02/18 00:00 98.0 F 60 16 112/68 03/01/18 16:00 98 F 83 16 128/89 Intake and Output 03/01/18 03/02/18 03/02/18 22:59 06:59 14:59 Other: # Voids 3 2 1 - Exam Extremities: Present: normal Abdomen: Present: normal appearance, soft. Absent: distention, tenderness Incision: Present: normal, dry, intact Uterus: Present: normal, firm (The uterine fundus as tonic and appropriately tender well below the umbilicus.) - Labs Labs: Abnormal Lab Results - Last 24 Hours (Table) 03/01/18 03/02/18 Range/Units 08:46 07:14 WBC 14.2 H 14.0 H (3.8-10.6) k/uL RBC 2.37 L 2.21 L (3.80-5.40) m/uL Hgb 7.1 L 6.9 L* (11.4-16.0) gm/dL Hct 22.4 L 21.3 L (34.0-46.0) % Plt Count 148 L (150-450) k/uL Neutrophils # 11.9 H (1.3-7.7) k/uL Assessment and Plan (1) 27 weeks gestation of Current Visit: Yes Status: Acute Code(s): Z3A.27 - 27 WEEKS GESTATION OF SNOMED Code(s): 51308356 (2) Vaginal bleeding during Current Visit: Yes Status: Acute Code(s): O46.90 - ANTEPARTUM HEMORRHAGE, UNSPECIFIED, UNSPECIFIED TRIMESTER SNOMED Code(s): 50281648730964645 (3) Placental abruption in second trimester Current Visit: Yes Status: Acute Code(s): O45.92 - PREMATURE SEPARATION OF PLACENTA, UNSP, SECOND TRIMESTER SNOMED Code(s): 204132477 (4) Status post section Current Visit: Yes Status: Acute Code(s): Z98.891 - HISTORY OF UTERINE SCAR FROM PREVIOUS SURGERY SNOMED Code(s): 569122756 Plan: Continue routine postoperative care. She will likely be discharged home tomorrow. CBC will be repeated though to has been stable between yesterday and today. I continued to encourage her to ambulate in the halls routinely. Transfusion at this time is not indicated.
[2018-03-02] MEDS: SENNOSIDES-DOCUSATE SODIUM 1 EACH TAB PO SCH ×2 (11:01→20:22)
[2018-03-03] MEDS: IBUPROFEN 600 MG TAB PO PRN (02:22)
[2018-03-03] MEDS: HYDROcodone/APAP 7.5-325MG 1 EACH TAB PO PRN (06:14)
[2018-03-03 08:47] LABS: HCT 23.8 % (34.0-46.0); HGB 7.8 gm/dL (11.4-16.0); Hypochromasia Slight; MCH 31.8 pg (25.0-35.0); MCHC 32.5 g/dL (31.0-37.0); MCV 97.9 fL (80.0-100.0); Mean Platelet Volume 7.5; Platelet Count 183 k/uL (150-450); RBC 2.43 m/uL (3.80-5.40); RDW 13.3 % (11.5-15.5)
--- NOTE | 2018-03-03 09:23 | P.DS ---
Providers Date of admission: 02/28/18 04:05 Expected date of discharge: 03/03/18 Attending physician: Freddy Brown Primary care physician: Stated None - Discharge Diagnosis(es) (1) 27 weeks gestation of Current Visit: Yes Status: Acute (2) Vaginal bleeding during Current Visit: Yes Status: Acute (3) Placental abruption in second trimester Current Visit: Yes Status: Acute (4) Status post section Current Visit: Yes Status: Acute Hospital Course: The patient is a 23-year-old 2 para 1001 who presented to triage with acute vaginal bleeding preceded by significant abdominal pain at 27+ weeks by her given due date.. Her has been uncomplicated to this point and she denies any trauma, drugs, alcohol, or any other etiology for the bleeding. It was apparent in triage that the patient was undergoing placental abruption. heart tones remained relatively reassuring throughout. Given her significant discomfort and the ongoing nature of the problem, the decision was made to proceed with primary low-transverse section. She was taken the operating room where she underwent this procedure and uncomplicated fashion was delivered of a viable 2 lbs. 7 oz. baby girl with Apgars of 2 at 1 minute, 7 at 5 minutes, and 8 at 10 minutes. The delivery was attended by staff from [facility] who happened to be on the floor to transport a different . The front loader residential driver was also in attendance. The patient's course was essentially unremarkable though her hemoglobin did bridgette at 6.9. She had no symptoms of orthostasis throughout her stay. She was performing all activities of daily living by the afternoon of postoperative day #1 but remained in the hospital for ongoing pain control until the morning of postoperative day #3 at which time she was deemed stable for discharge. She was discharged home to follow-up in the office in 2 weeks for an incision check and 6 weeks routinely. Discharge instructions included calling for any significantly increased bleeding or foul-smelling lochia, significantly increased fever or abdominal pain, perineal complaints, breast complaints, incisional complaints, or anything else that concerned her. She was additionally instructed to have nothing in the vagina for at least 6 weeks time to include intercourse and to abstain from any heavy lifting over the same period of time. She was last instructed to do no driving until off of all pain medications or 2 weeks' time, whichever came first. She understood her instructions and agrees to follow up as noted above. Discharge medications included a prescription for Tylenol 3, 1- 2 by mouth every 6 hours when necessary pain, #20 dispensed with no refills. She was otherwise instructed to take iron sulfate 325 mg 1-2 times daily for a month to help to rebuild her hemoglobin. Maternal blood type is A+ and rubella status is not apparent in the chart at this time though she is thought to be immune. Discharge hemoglobin and hematocrit were 7.8 and 23.8 respectively. The is reportedly doing well in the special care nursery at [facility]. Procedures: #1. Urgent primary low transverse section #2. Serial hemoglobin and hematocrit Patient Condition at Discharge: Stable Plan - Discharge Summary New Discharge Prescriptions: No Action Albuterol Inhaler [Ventolin Hfa Inhaler] 2 puff INHALATION RT-Q4H PRN PRN Reason: Shortness Of Breath Albuterol Nebulized [Ventolin Nebulized] 2.5 mg INHALATION RT-Q4H Budesonide [Pulmicort] 0.5 mg INHALATION RT-BID Pnv,Calcium 72/Iron/Folic Acid [ Plus Tablet] 1 tab PO DAILY Discharge Medication List Albuterol Inhaler [Ventolin Hfa Inhaler] 2 puff INHALATION RT-Q4H PRN 11/17/16 [ History] Albuterol Nebulized [Ventolin Nebulized] 2.5 mg INHALATION RT-Q4H 05/02/17 [ History] Budesonide [Pulmicort] 0.5 mg INHALATION RT-BID 01/18/18 [History] Pnv,Calcium 72/Iron/Folic Acid [ Plus Tablet] 1 tab PO DAILY 01/18/18 [ History] Follow up Appointment(s)/Referral(s): Freddy Brown MD [STAFF PHYSICIAN] - 2 Weeks Discharge Disposition: HOME SELF-CARE
[2018-03-03 09:40] VITALS: BP 115/69; PULSE 85; RESP 17; TEMP 98.6
[2018-03-03] MEDS: SENNOSIDES-DOCUSATE SODIUM 1 EACH TAB PO SCH (10:31)
== END 2018-03-03 10:40 | disposition home or self-care (01) | DRG 766 ==
LOC: FBPOP 02:29 → 4FBP 04:05
PROVIDERS: ADMIT Obstetrics & Gynecology; ATTEND Obstetrics & Gynecology
PROC: 10D00Z1 Extraction of Products of Conception, Low, Open Approach (ICD-10-PCS; principal; 2018-02-28 03:46)
DX: O45.92 Premature separation of placenta, unspecified, second trimester (principal); Z3A.27 27 weeks gestation of pregnancy; Z37.0 Single live birth; O99.52 Diseases of the respiratory system complicating childbirth; J45.909 Unspecified asthma, uncomplicated; Z79.899 Other long term (current) drug therapy; Z79.51 Long term (current) use of inhaled steroids; Z82.5 Family history of asthma and other chronic lower respiratory diseases; Z88.0 Allergy status to penicillin
CPT/HCPCS: 59025; 80306; 81001; 85025; 85027; 86706; 86762; 86780; 86850; 86900; 86901; 87340; 87390; 88305; 88313; 99213

== ENCOUNTER 2018-06-15 10:04 | Emergency (ER) | payer OTHER ==
[2018-06-15 10:22] VITALS: TEMP 98.3
[2018-06-15] MEDS ORDERED: predniSONE 20 MG TAB PO STA (10:34)
[2018-06-15] MEDS ORDERED: ALBUTEROL NEBULIZED 2.5 MG/3 ML INHALATION STA (10:34)
--- NOTE | 2018-06-15 10:59 | XR ---
EXAMINATION TYPE: XR chest 2V DATE OF EXAM: 06/15/2018 COMPARISON: Chest x-ray January 18, 2018. HISTORY: History of asthma presents with shortness of breath TECHNIQUE: Frontal and lateral views of the chest are obtained. FINDINGS: There is no focal air space opacity, pleural effusion, or pneumothorax seen. The cardiac silhouette size is within normal limits. The osseous structures are intact. IMPRESSION: No suspicious acute pulmonary process. No significant change from prior.
[2018-06-15 11:39] LABS: Anisocytosis Slight; Basophils % (A) 0 %; Eosinophils # (A) 0.4 k/uL (0-0.7); Eosinophils % (A) 5 %; HCT 38.8 % (34.0-46.0); HGB 11.6 gm/dL (11.4-16.0); Hypochromasia Moderate; Lymphocytes # (A) 2.2 k/uL (1.0-4.8); Lymphocytes % (A) 28 %; MCH 24.4 pg (25.0-35.0); MCHC 29.9 g/dL (31.0-37.0); MCV 81.4 fL (80.0-100.0); Mean Platelet Volume 7.2; Microcytosis Slight; Monocytes # (A) 0.3 k/uL (0-1.0); Monocytes % (A) 4 %; Neutrophils # (A) 4.9 k/uL (1.3-7.7); Neutrophils % (A) 61 %; Platelet Count 240 k/uL (150-450); RBC 4.76 m/uL (3.80-5.40); RDW 17.9 % (11.5-15.5)
[2018-06-15] MEDS ORDERED: ACETAMINOPHEN TAB 325 MG TAB PO STA (11:44)
[2018-06-15 11:50] LABS: ALT 21 U/L (9-52); AST 23 U/L (14-36); Albumin 4.6 g/dL (3.5-5.0); Alkaline Phosphatase 75 U/L (38-126); Anion Gap 10 mmol/L; Blood Urea Nitrogen 10 mg/dL (7-17); Calcium 10.2 mg/dL (8.4-10.2); Carbon Dioxide 25 mmol/L (22-30); Chloride 106 mmol/L (98-107); Glucose 99 mg/dL (74-99); Potassium 4.4 mmol/L (3.5-5.1); Sodium 141 mmol/L (137-145); Total Bilirubin 0.4 mg/dL (0.2-1.3); Total Protein 8.2 g/dL (6.3-8.2)
[2018-06-15 12:00] LABS: D-Dimer 0.24 mg/L FEU (<0.60); Partial Thromboplastin Time 26.9 sec (22.0-30.0); Prothrombin Time 10.5 sec (9.0-12.0)
[2018-06-15 12:01] LABS: Creatine Kinase 162 U/L (30-135)
--- NOTE | 2018-06-15 12:02 | ED ---
General Adult HPI - General Chief complaint: Shortness of Breath Stated complaint: chronic asthma, chest pain SOB Time Seen by Provider: 06/15/18 10:24 Source: patient Mode of arrival: ambulatory Limitations: no limitations - History of Present Illness Initial comments: 23-year-old here past medical history of asthma presenting today for chief complaint of right-sided chest pain and shortness of breath this morning. Patient states that she has had multiple asthma exacerbations and has had increasing shortness of breath today that felt similar in characteristic to her previous exacerbations. She used albuterol inhaler which seemed to help minimally however decided to present for evaluation. She does mention that does not normally however have right-sided chest pain. Patient states that the pain is in relation to when she lifts her right arm is not sure if his muscular nature. Patient denies any calf pain, calf redness or masses, exogenous estrogen use, history of cancer history of blood clots, recent travel, recent surgery or immobilization. She denies any previous intubations however she has had previous ICU admissions. Patient is on inhaled corticosteroids as well as an albuterol inhaler outpatient. Patient is currently managing her asthma with pulmonology. Patient denies any lower extremity edema, fever, chills, cough, congestion, sputum production, nausea, vomiting, diarrhea. Patient is well- appearing, arrival there is no signs of acute respiratory distress. Vital signs within is to limit, patient does not appear in acute respiratory distress. Patient is oxygenating well with 100% on room air. - Related Data Home Medications Medication Instructions Recorded Confirmed Albuterol Inhaler [Ventolin Hfa 2 puff INHALATION RT-Q4H PRN 11/17/16 06/15/18 Inhaler] Albuterol Nebulized [Ventolin 2.5 mg INHALATION RT-Q4H 05/02/17 06/15/18 Nebulized] Budesonide [Pulmicort] 0.5 mg INHALATION RT-BID 01/18/18 06/15/18 Acetaminophen Tab [Tylenol] 1,000 mg PO DAILY 06/15/18 06/15/18 Montelukast [Singulair] 10 mg PO HS 06/15/18 06/15/18 Naproxen Sodium [Aleve] 220 mg PO Q8H 06/15/18 06/15/18 Previous Rx's Medication Instructions Recorded predniSONE 20 mg PO BID 5 Days #10 tab 06/15/18 Allergies Allergy/AdvReac Type Severity Reaction Status Date / Time amoxicillin [Amoxicillin] Allergy Anaphylaxis Verified 06/15/18 11:55 Review of Systems ROS Statement: Those systems with pertinent positive or pertinent negative responses have been documented in the HPI. ROS Other: All systems not noted in ROS Statement are negative. Constitutional: Denies: fever, chills, night sweats ENT: Denies: ear pain, throat pain Respiratory: Reports: dyspnea, wheezes. Denies: cough, hemoptysis, stridor Cardiovascular: Reports: chest pain (Right-sided chest pain that increases with lifting of the right arm). Denies: palpitations, dyspnea on exertion, orthopnea , edema Gastrointestinal: Denies: abdominal pain, nausea, vomiting, diarrhea, constipation, melena, hematochezia Genitourinary: Denies: urgency, dysuria Musculoskeletal: Denies: as per HPI, back pain Skin: Denies: rash, lesions Neurological: Denies: headache, weakness, numbness, paresthesias, confusion, abnormal gait Past Medical History Past Medical History: Asthma History of Any Multi-Drug Resistant Organisms: None Reported Past Surgical History: No Surgical Hx Reported Additional Past Surgical History / Comment(s): [place] tooth extraction Past Anesthesia/Blood Transfusion Reactions: No Reported Reaction Additional Past Anesthesia/Blood Transfusion Reaction / Comment(s): no anesthesia or blood before Past Psychological History: No Psychological Hx Reported Smoking Status: Never smoker Past Alcohol Use History: None Reported Past Drug Use History: None Reported - Past Family History Father Family Medical History: Asthma General Exam - General Exam Comments Initial Comments: General: The patient is awake and alert, in no distress, and does not appear acutely ill. Eye: +3 pupils are equal, round and reactive to light, extra-ocular movements are intact. No nystagmus. There is normal conjunctiva bilaterally. No signs of icterus. Ears, nose, mouth and throat: There are moist mucous membranes and no oral lesions. Neck: The neck is supple, there is no tenderness or JVD. Cardiovascular: There is a regular rate and rhythm. No murmur, rub or gallop is appreciated. Respiratory: No signs of acute rest or chest, no retractions or abdominal breathing or use of accessory muscles. No noted cyanosis respirations are non- labored, breath sounds are equal. Mild wheeze. No stridor, rales, or rhonchi. Gastrointestinal: Soft, non-distended, non-tender abdomen without masses or organomegaly noted. There is no rebound or guarding present. No CVA tenderness. Bowel sounds are unremarkable. Musculoskeletal: Normal ROM, no tenderness. Strength 5/5. Sensation intact. Pulses equal bilaterally 2+. Neurological: A&O x 3. CN II-XII intact, There are no obvious motor or sensory deficits. Coordination appears grossly intact. Speech is normal. Skin: Skin is warm and dry and no rashes or lesions are noted. Negative Homans. There is no lower extremity edema. Along the deep venous system of the lower extremities bilaterally. Psychiatric: Cooperative, appropriate mood & affect, normal judgment. Limitations: no limitations Course Vital Signs 06/15/18 06/15/18 06/15/18 10:18 11:45 11:53 Temperature 98.3 F Pulse Rate 86 89 79 Respiratory 18 Rate Blood Pressure 142/98 O2 Sat by Pulse 100 Oximetry 06/15/18 06/15/18 12:00 12:23 Temperature Pulse Rate 80 80 Respiratory 20 16 Rate Blood Pressure 147/103 135/93 O2 Sat by Pulse 100 100 Oximetry - Reevaluation(s) Reevaluation #1: Pt states improvement of pain, tylenol hasnt been administered yet. States significant improvement in SOB. 06/15/18 12:13 EKG Findings - EKG Comments: EKG Findings:: A 12-lead EKG was performed and shows the following: Rate is 68bpm, and rhythm is normal sinus. There are normal QRS complexes and normal R- wave progression. ST segments have no elevation or depression, and MD segments appear normal. Possible left atrial enlargement other normal EKG. Compared to previous, no acute findings. Medical Decision Making - Medical Decision Making Patient does not appear to be in respiratory distress. Physical exam revealed mild wheeze. Patient was given albuterol treatment which cleared wheezing and patient expressed significant reduction in symptoms. Patient given 40 mg of oral prednisone. Dimer negative. Chest x-ray negative for acute cardiopulmonary process. EKG no acute changes. Troponin and cardiac profile negative. At this time given patient's lack of risk factors do not fill patient 's right sided chest pain is due to acute coronary syndrome. Patient denies any back pain and doesn't have any history of connective tissue disease. Given patient states she has significant improvement in symptoms with albuterol treatments and chest pain is only reproducible with lifting of arm, i feel there may be both an asthma exacerbation as well as osteoskeletal component of patient's chief complaint today. This time I do feel patient is safe for discharge given she is oxygenating well, no signs of distress, clinical improvement symptoms, no other wheeze on examination, with negative laboratory findings. Patient is requesting discharge. I discussed the case with Dr. Paez agrees impression plan. Patient discharged in stable condition. - Lab Data Result diagrams: 06/15/18 11:15 06/15/18 11:15 Lab Results 06/15/18 06/15/18 06/15/18 Range/Units 11:15 11:15 11:15 WBC 8.0 (3.8-10.6) k/uL RBC 4.76 (3.80-5.40) m/uL Hgb 11.6 (11.4-16.0) gm/dL Hct 38.8 (34.0-46.0) % MCV 81.4 (80.0-100.0) fL MCH 24.4 L (25.0-35.0) pg MCHC 29.9 L (31.0-37.0) g/dL RDW 17.9 H (11.5-15.5) % Plt Count 240 (150-450) k/uL Neutrophils % 61 % Lymphocytes % 28 % Monocytes % 4 % Eosinophils % 5 % Basophils % 0 % Neutrophils # 4.9 (1.3-7.7) k/uL Lymphocytes # 2.2 (1.0-4.8) k/uL Monocytes # 0.3 (0-1.0) k/uL Eosinophils # 0.4 (0-0.7) k/uL Basophils # 0.0 (0-0.2) k/uL Hypochromasia Moderate Anisocytosis Slight Microcytosis Slight PT (9.0-12.0) sec INR (<1.2) APTT (22.0-30.0) sec D-Dimer (<0.60) mg/L FEU Sodium 141 (137-145) mmol/L Potassium 4.4 (3.5-5.1) mmol/L Chloride 106 (98-107) mmol/L Carbon Dioxide 25 (22-30) mmol/L Anion Gap 10 mmol/L BUN 10 (7-17) mg/dL Creatinine 0.64 (0.52-1.04) mg/dL Est GFR (CKD-EPI)AfAm >90 (>60 ml/min/1.73 sqM) Est GFR (CKD-EPI)NonAf >90 (>60 ml/min/1.73 sqM) Glucose 99 (74-99) mg/dL Calcium 10.2 (8.4-10.2) mg/dL Total Bilirubin 0.4 (0.2-1.3) mg/dL AST 23 (14-36) U/L ALT 21 (9-52) U/L Alkaline Phosphatase 75 (38-126) U/L Total Creatine Kinase 162 H (30-135) U/L CK-MB (CK-2) 1.0 (0.0-2.4) ng/mL CK-MB (CK-2) Rel Index 0.6 Troponin I <0.012 (0.000-0.034) ng/mL Total Protein 8.2 (6.3-8.2) g/dL Albumin 4.6 (3.5-5.0) g/dL Urine Color Urine Appearance (Clear) Urine pH (5.0-8.0) Ur Specific [place] (1.001-1.035) Urine Protein (Negative) Urine Glucose (UA) (Negative) Urine Ketones (Negative) Urine Blood (Negative) Urine Nitrite (Negative) Urine Bilirubin (Negative) Urine Urobilinogen (<2.0) mg/dL Ur Leukocyte Esterase (Negative) Urine HCG, Qual (Not Detectd) 06/15/18 06/15/18 06/15/18 Range/Units 11:15 11:23 11:23 WBC (3.8-10.6) k/uL RBC (3.80-5.40) m/uL Hgb (11.4-16.0) gm/dL Hct (34.0-46.0) % MCV (80.0-100.0) fL MCH (25.0-35.0) pg MCHC (31.0-37.0) g/dL RDW (11.5-15.5) % Plt Count (150-450) k/uL Neutrophils % % Lymphocytes % % Monocytes % % Eosinophils % % Basophils % % Neutrophils # (1.3-7.7) k/uL Lymphocytes # (1.0-4.8) k/uL Monocytes # (0-1.0) k/uL Eosinophils # (0-0.7) k/uL Basophils # (0-0.2) k/uL Hypochromasia Anisocytosis Microcytosis PT 10.5 (9.0-12.0) sec INR 1.0 (<1.2) APTT 26.9 (22.0-30.0) sec D-Dimer 0.24 (<0.60) mg/L FEU Sodium (137-145) mmol/L Potassium (3.5-5.1) mmol/L Chloride (98-107) mmol/L Carbon Dioxide (22-30) mmol/L Anion Gap mmol/L BUN (7-17) mg/dL Creatinine (0.52-1.04) mg/dL Est GFR (CKD-EPI)AfAm (>60 ml/min/1.73 sqM) Est GFR (CKD-EPI)NonAf (>60 ml/min/1.73 sqM) Glucose (74-99) mg/dL Calcium (8.4-10.2) mg/dL Total Bilirubin (0.2-1.3) mg/dL AST (14-36) U/L ALT (9-52) U/L Alkaline Phosphatase (38-126) U/L Total Creatine Kinase (30-135) U/L CK-MB (CK-2) (0.0-2.4) ng/mL CK-MB (CK-2) Rel Index Troponin I (0.000-0.034) ng/mL Total Protein (6.3-8.2) g/dL Albumin (3.5-5.0) g/dL Urine Color Light Yellow Urine Appearance Clear (Clear) Urine pH 6.0 (5.0-8.0) Ur Specific [place] 1.006 (1.001-1.035) Urine Protein Negative (Negative) Urine Glucose (UA) Negative (Negative) Urine Ketones Negative (Negative) Urine Blood Negative (Negative) Urine Nitrite Negative (Negative) Urine Bilirubin Negative (Negative) Urine Urobilinogen <2.0 (<2.0) mg/dL Ur Leukocyte Esterase Negative (Negative) Urine HCG, Qual Not Detected (Not Detectd) Disposition Clinical Impression: Shortness of breath, Chest pain, atypical Disposition: HOME SELF-CARE Condition: Good Instructions: Chest Pain (ED), Shortness of Breath (ED) Additional Instructions: Please use previously prescribed medication as discussed. Please follow-up with family doctor in the next 24 hours. Please return to emergency room if the symptoms increase or worsen or for any other concerns. Prescriptions: predniSONE 20 mg PO BID 5 Days #10 tab Is patient prescribed a controlled substance at d/c from ED?: No Referrals: Hyacinth Montero MD [Primary Care Provider] - 1-2 days Time of Disposition: 12:19
[2018-06-15 12:06] LABS: Appearance,Urine Clear (Clear); Bilirubin,Urine Negative (Negative); Blood,Urine Negative (Negative); Color,Urine Light Yellow; Glucose,Urine (UA) Negative (Negative); Ketones,Urine Negative (Negative); Leukocyte Esterase,Urine Negative (Negative); Nitrite,Urine Negative (Negative); Protein,Urine Negative (Negative); Specific Gravity,Urine 1.006 (1.001-1.035); Urobilinogen,Urine <2.0 mg/dL (<2.0)
[2018-06-15 12:15] LABS: Troponin I <0.012 ng/mL (0.000-0.034)
[2018-06-15 12:23] VITALS: PULSE 80
[2018-06-15 12:25] VITALS: BP 135/93; RESP 16
== END 2018-06-15 12:55 | disposition home or self-care (01) ==
LOC: EC 10:04
DX: R07.89 Other chest pain (principal); R06.02 Shortness of breath; J45.909 Unspecified asthma, uncomplicated; Z79.1 Long term (current) use of non-steroidal anti-inflammatories (NSAID); Z79.899 Other long term (current) drug therapy; Z79.52 Long term (current) use of systemic steroids; Z88.0 Allergy status to penicillin
CPT/HCPCS: 36415; 94640; 93005; 85379; 80053; 82550; 82553; 84484; 85025; 85610; 85730; 81003; 81025; 71046; 99285; J7512

== ENCOUNTER 2018-10-20 06:14 | Observation (INO) | payer OTHER ==
--- NOTE | 2018-10-20 07:29 | XR ---
EXAMINATION TYPE: XR chest 1V portable DATE OF EXAM: 10/20/2018 COMPARISON: 06/15/2018 INDICATION: Short of breath, cough asthma TECHNIQUE: Frontal views of the chest are obtained FINDINGS: The heart size is normal. The pulmonary vasculature is normal. The lungs are clear. IMPRESSION: 1. No acute pulmonary process.
[2018-10-20] MEDS ORDERED: IPRATROPIUM-ALBUTEROL 3 ML NEB INHALATION STA ×2 (07:33→08:53)
[2018-10-20] MEDS ORDERED: SODIUM CHLORIDE 0.9% 500 ML 500 ML IV STA (07:33)
--- NOTE | 2018-10-20 07:37 | ED ---
General Adult HPI - General Chief complaint: Shortness of Breath Stated complaint: Asthma,ANNE Time Seen by Provider: 10/20/18 07:12 Source: patient, RN notes reviewed Mode of arrival: ambulatory Limitations: no limitations - History of Present Illness Initial comments: Patient is a pleasant 23-year-old female presenting to the emergency Department with difficulty breathing. Symptoms have progressed over the past 2-3 days, especially today. Patient does have cough. Patient has had some rhinorrhea. No fevers. Patient states her chest feels tight and she has had some wheezing. Patient did take an inhaler without much improvement of symptoms. - Related Data Home Medications Medication Instructions Recorded Confirmed Albuterol Inhaler [Ventolin Hfa 2 puff INHALATION RT-Q4H PRN 11/17/16 10/20/18 Inhaler] Albuterol Nebulized [Ventolin 2.5 mg INHALATION RT-Q4H 05/02/17 10/20/18 Nebulized] Acetaminophen Tab [Tylenol] 1,000 mg PO DAILY 06/15/18 10/20/18 Montelukast [Singulair] 10 mg PO HS 06/15/18 10/20/18 Naproxen Sodium [Aleve] 220 mg PO Q8H 06/15/18 10/20/18 Allergies Allergy/AdvReac Type Severity Reaction Status Date / Time amoxicillin [Amoxicillin] Allergy Anaphylaxis Verified 10/20/18 08:06 Review of Systems ROS Statement: Those systems with pertinent positive or pertinent negative responses have been documented in the HPI. ROS Other: All systems not noted in ROS Statement are negative. Constitutional: Denies: fever Eyes: Denies: eye pain ENT: Denies: ear pain Respiratory: Reports: cough, dyspnea Cardiovascular: Reports: chest pain Endocrine: Denies: fatigue Gastrointestinal: Denies: abdominal pain Genitourinary: Denies: dysuria Musculoskeletal: Denies: back pain Skin: Denies: rash Neurological: Denies: weakness Past Medical History Past Medical History: Asthma History of Any Multi-Drug Resistant Organisms: None Reported Past Surgical History: No Surgical Hx Reported Additional Past Surgical History / Comment(s): [place] tooth extraction Past Anesthesia/Blood Transfusion Reactions: No Reported Reaction Additional Past Anesthesia/Blood Transfusion Reaction / Comment(s): no anesthesia or blood before Past Psychological History: No Psychological Hx Reported Smoking Status: Never smoker Past Alcohol Use History: None Reported Past Drug Use History: None Reported - Past Family History Father Family Medical History: Asthma General Exam Limitations: no limitations General appearance: alert, in no apparent distress Head exam: Present: atraumatic Eye exam: Present: normal appearance, PERRL ENT exam: Present: normal oropharynx Neck exam: Present: normal inspection. Absent: meningismus Respiratory exam: Present: wheezes, decreased breath sounds Cardiovascular Exam: Present: tachycardia GI/Abdominal exam: Present: soft. Absent: tenderness Extremities exam: Present: normal inspection. Absent: pedal edema, calf tenderness Neurological exam: Present: alert Psychiatric exam: Present: normal affect, normal mood Skin exam: Present: normal color Course Vital Signs 10/20/18 10/20/18 10/20/18 06:18 07:11 07:18 Temperature 98.9 F 98.7 F Pulse Rate 122 H 117 H Respiratory 22 24 18 Rate Blood Pressure 144/108 149/105 O2 Sat by Pulse 99 99 Oximetry 10/20/18 10/20/18 10/20/18 08:02 08:16 08:45 Temperature 98.5 F Pulse Rate 110 H 115 H 117 H Respiratory 18 Rate Blood Pressure 124/96 O2 Sat by Pulse 100 Oximetry 10/20/18 10/20/18 09:09 09:18 Temperature Pulse Rate 116 H 124 H Respiratory Rate Blood Pressure O2 Sat by Pulse Oximetry EKG Findings - EKG Comments: EKG Findings:: Sinus tachycardia 101. MD 176. QRS 80. QT 350. QTC 453. Normal axis. Normal QRS. No acute ST change. Medical Decision Making - Medical Decision Making Patient reevaluated and is resting comfortably in bed. Despite Solu-Medrol and 2 never lies or treatments patient remains diminished. Heart rate 124. Case was discussed in detail with Dr. Mcneill, covering for Dr. mills, who will admit. - Lab Data Result diagrams: 10/20/18 07:45 10/20/18 07:45 Lab Results 10/20/18 10/20/18 10/20/18 Range/Units 06:26 06:29 07:45 WBC 12.3 H (3.8-10.6) k/uL RBC 4.46 (3.80-5.40) m/uL Hgb 12.9 (11.4-16.0) gm/dL Hct 39.4 (34.0-46.0) % MCV 88.3 (80.0-100.0) fL MCH 28.9 (25.0-35.0) pg MCHC 32.8 (31.0-37.0) g/dL RDW 13.4 (11.5-15.5) % Plt Count 299 (150-450) k/uL Neutrophils % 78 % Lymphocytes % 12 % Monocytes % 4 % Eosinophils % 3 % Basophils % 0 % Neutrophils # 9.6 H (1.3-7.7) k/uL Lymphocytes # 1.5 (1.0-4.8) k/uL Monocytes # 0.5 (0-1.0) k/uL Eosinophils # 0.4 (0-0.7) k/uL Basophils # 0.0 (0-0.2) k/uL PT (9.0-12.0) sec INR (<1.2) APTT (22.0-30.0) sec D-Dimer (<0.60) mg/L FEU Sodium (137-145) mmol/L Potassium (3.5-5.1) mmol/L Chloride (98-107) mmol/L Carbon Dioxide (22-30) mmol/L Anion Gap mmol/L BUN (7-17) mg/dL Creatinine (0.52-1.04) mg/dL Est GFR (CKD-EPI)AfAm (>60 ml/min/1.73 sqM) Est GFR (CKD-EPI)NonAf (>60 ml/min/1.73 sqM) Glucose (74-99) mg/dL Calcium (8.4-10.2) mg/dL Total Bilirubin (0.2-1.3) mg/dL AST (14-36) U/L ALT (9-52) U/L Alkaline Phosphatase (38-126) U/L Creatine Kinase (30-135) U/L CK-MB (CK-2) (0.0-2.4) ng/mL Troponin I (0.000-0.034) ng/mL Total Protein (6.3-8.2) g/dL Albumin (3.5-5.0) g/dL Urine HCG, Qual Not Detected (Not Detectd) Influenza Type A RNA Not Detected (Not Detectd) Influenza Type B (PCR) Not Detected (Not Detectd) 10/20/18 10/20/18 10/20/18 Range/Units 07:45 07:45 07:45 WBC (3.8-10.6) k/uL RBC (3.80-5.40) m/uL Hgb (11.4-16.0) gm/dL Hct (34.0-46.0) % MCV (80.0-100.0) fL MCH (25.0-35.0) pg MCHC (31.0-37.0) g/dL RDW (11.5-15.5) % Plt Count (150-450) k/uL Neutrophils % % Lymphocytes % % Monocytes % % Eosinophils % % Basophils % % Neutrophils # (1.3-7.7) k/uL Lymphocytes # (1.0-4.8) k/uL Monocytes # (0-1.0) k/uL Eosinophils # (0-0.7) k/uL Basophils # (0-0.2) k/uL PT 9.7 (9.0-12.0) sec INR 0.9 (<1.2) APTT 24.6 (22.0-30.0) sec D-Dimer 0.30 (<0.60) mg/L FEU Sodium 140 (137-145) mmol/L Potassium 4.1 (3.5-5.1) mmol/L Chloride 104 (98-107) mmol/L Carbon Dioxide 27 (22-30) mmol/L Anion Gap 9 mmol/L BUN 10 (7-17) mg/dL Creatinine 0.57 (0.52-1.04) mg/dL Est GFR (CKD-EPI)AfAm >90 (>60 ml/min/1.73 sqM) Est GFR (CKD-EPI)NonAf >90 (>60 ml/min/1.73 sqM) Glucose 91 (74-99) mg/dL Calcium 9.8 (8.4-10.2) mg/dL Total Bilirubin 0.4 (0.2-1.3) mg/dL AST 23 (14-36) U/L ALT 26 (9-52) U/L Alkaline Phosphatase 94 (38-126) U/L Creatine Kinase 158 H (30-135) U/L CK-MB (CK-2) 0.9 (0.0-2.4) ng/mL Troponin I <0.012 (0.000-0.034) ng/mL Total Protein 8.2 (6.3-8.2) g/dL Albumin 4.7 (3.5-5.0) g/dL Urine HCG, Qual (Not Detectd) Influenza Type A RNA (Not Detectd) Influenza Type B (PCR) (Not Detectd) - Radiology Data Radiology results: image reviewed (Chest x-ray shows no acute process) Disposition Clinical Impression: Asthma exacerbation Disposition: ADMITTED IP TO THIS HOSP Is patient prescribed a controlled substance at d/c from ED?: No Referrals: Hyacinth Mills MD [Primary Care Provider] - 1-2 days Time of Disposition: 09:59
[2018-10-20 08:14] LABS: Basophils % (A) 0 %; Eosinophils # (A) 0.4 k/uL (0-0.7); Eosinophils % (A) 3 %; HCT 39.4 % (34.0-46.0); HGB 12.9 gm/dL (11.4-16.0); Lymphocytes # (A) 1.5 k/uL (1.0-4.8); Lymphocytes % (A) 12 %; MCH 28.9 pg (25.0-35.0); MCHC 32.8 g/dL (31.0-37.0); MCV 88.3 fL (80.0-100.0); Mean Platelet Volume 7.7; Monocytes # (A) 0.5 k/uL (0-1.0); Monocytes % (A) 4 %; Neutrophils # (A) 9.6 k/uL (1.3-7.7); Neutrophils % (A) 78 %; Platelet Count 299 k/uL (150-450); RBC 4.46 m/uL (3.80-5.40); RDW 13.4 % (11.5-15.5); WBC 12.3 k/uL (3.8-10.6)
[2018-10-20 08:15] LABS: ALT 26 U/L (9-52); AST 23 U/L (14-36); Albumin 4.7 g/dL (3.5-5.0); Alkaline Phosphatase 94 U/L (38-126); Anion Gap 9 mmol/L; Blood Urea Nitrogen 10 mg/dL (7-17); Calcium 9.8 mg/dL (8.4-10.2); Carbon Dioxide 27 mmol/L (22-30); Chloride 104 mmol/L (98-107); Creatine Kinase 158 U/L (30-135); Glucose 91 mg/dL (74-99); Potassium 4.1 mmol/L (3.5-5.1); Sodium 140 mmol/L (137-145); Total Bilirubin 0.4 mg/dL (0.2-1.3); Total Protein 8.2 g/dL (6.3-8.2)
[2018-10-20 08:22] LABS: D-Dimer 0.3 mg/L FEU (<0.60); INR 0.9 (<1.2); Partial Thromboplastin Time 24.6 sec (22.0-30.0); Prothrombin Time 9.7 sec (9.0-12.0)
[2018-10-20] MEDS ORDERED: Acetaminophen-Codeine 300-30mg TAB PO STA (08:39)
[2018-10-20 08:41] LABS: Creatine Kinase MB 0.9 ng/mL (0.0-2.4); Troponin I <0.012 ng/mL (0.000-0.034)
[2018-10-20] MEDS ORDERED: methylPREDNISolone SOD SUCCI 125 MG/2 ML VIAL IV STA (08:53)
[2018-10-20] MEDS: SODIUM CHLORIDE 0.9% 1,000 ML IV SCH ×2 (10:29→20:49)
[2018-10-20] MEDS ORDERED: methylPREDNISolone SOD SUCCI 125 MG/2 ML VIAL IV SCH (12:00)
[2018-10-20] MEDS: IPRATROPIUM-ALBUTEROL 3 ML NEB INHALATION SCH ×3 (12:39→19:13)
[2018-10-20] MEDS ORDERED: ACETAMINOPHEN TAB 325 MG TAB PO PRN (12:58)
[2018-10-20] MEDS: PANTOPRAZOLE 40 MG/10 ML VIAL IVP SCH (13:50)
--- NOTE | 2018-10-20 14:53 | P.HPIM ---
History of Present Illness Patient is pleasant 23-year-old female came in with compensative shortness of breath cough and yellowish sputum production going on for about 2-3 days. Patient has multiple seasonal ALLERGIES does have moderately severe intermittent asthma. Patient was started on stomach steroids patient does feel better now. Patient will not require any antibiotics patient bronchitis is ALLERGIC that is no evidence of Bactrim bronchitis. Patient is complaining of [place] skeletal pain in the back of the chest (upper back) reproducible pain from coughing. Patient doesn't smoke doesn't have any pneumonic infiltrate of the chest x-ray. Review of Systems REVIEW OF SYSTEMS: CONSTITUTIONAL: No fever, no malaise, no fatigue. HEENT: No recent visual problems or hearing problems. Denied any sore throat. CARDIOVASCULAR: No chest pain, orthopnea, PND, no palpitations, no syncope. PULMONARY: As mentioned in the HPI GASTROINTESTINAL: No diarrhea, no nausea, no vomiting, no abdominal pain. NEUROLOGICAL: No headaches, no weakness, no numbness. HEMATOLOGICAL: Denies any bleeding or petechiae. GENITOURINARY: Denies any burning micturition, frequency, or urgency. MUSCULOSKELETAL/RHEUMATOLOGICAL: Denies any joint pain, swelling, ENDOCRINE: Denies any polyuria or polydipsia. The rest of the 14-point review of systems is negative. Past Medical History Past Medical History: Asthma Additional Past Medical History / Comment(s): Chronic asthma History of Any Multi-Drug Resistant Organisms: None Reported Past Surgical History: Section Additional Past Surgical History / Comment(s): [place] tooth extraction Past Anesthesia/Blood Transfusion Reactions: No Reported Reaction Additional Past Anesthesia/Blood Transfusion Reaction / Comment(s): no anesthesia or blood before Smoking Status: Never smoker - Past Family History Father Family Medical History: Asthma Mother Family Medical History: No Reported History Medications and Allergies Home Medications Medication Instructions Recorded Confirmed Type Albuterol Inhaler [Ventolin Hfa 2 puff INHALATION RT-Q4H PRN 11/17/16 10/20/18 History Inhaler] Albuterol Nebulized [Ventolin 2.5 mg INHALATION RT-Q4H 05/02/17 10/20/18 History Nebulized] Acetaminophen Tab [Tylenol] 1,000 mg PO DAILY 06/15/18 10/20/18 History Montelukast [Singulair] 10 mg PO HS 06/15/18 10/20/18 History Naproxen Sodium [Aleve] 220 mg PO Q8H 06/15/18 10/20/18 History Allergies Allergy/AdvReac Type Severity Reaction Status Date / Time amoxicillin [Amoxicillin] Allergy Anaphylaxis Verified 10/20/18 08:06 Physical Exam Vitals: Vital Signs Temp Pulse Resp BP Pulse Ox 10/20/18 12:52 104 H 10/20/18 12:39 100 10/20/18 10:29 98.5 F 104 H 18 134/85 98 10/20/18 09:18 124 H 10/20/18 09:09 116 H 10/20/18 08:45 98.5 F 117 H 18 124/96 100 10/20/18 08:16 115 H 10/20/18 08:02 110 H 10/20/18 07:18 98.7 F 117 H 18 149/105 99 10/20/18 07:11 24 10/20/18 06:18 98.9 F 122 H 22 144/108 99 Intake and Output 10/19/18 10/20/18 10/20/18 22:59 06:59 14:59 Other: Weight 45.359 kg PHYSICAL EXAMINATION: GENERAL: The patient is alert and oriented x3, not in any acute distress. Well developed, well nourished. HEENT: Pupils are round and equally reacting to light. EOMI. No scleral icterus. No conjunctival pallor. Normocephalic, atraumatic. No pharyngeal erythema. No thyromegaly. CARDIOVASCULAR: S1 and S2 present. No murmurs, rubs, or gallops. PULMONARY: Limited air entry into bilateral lung schulte no wheezing was appreciated patient is not using accessory muscles of breathing Reproducible upper back pain ABDOMEN: Soft, nontender, nondistended, normoactive bowel sounds. No palpable organomegaly. MUSCULOSKELETAL: No joint swelling or deformity. EXTREMITIES: No cyanosis, clubbing, or pedal edema. NEUROLOGICAL: Gross neurological examination did not reveal any focal deficits. SKIN: No rashes. Results CBC & Chem 7: 10/20/18 07:45 10/20/18 07:45 Labs: Abnormal Lab Results - Last 24 Hours (Table) 10/20/18 10/20/18 Range/Units 07:45 07:45 WBC 12.3 H (3.8-10.6) k/uL Neutrophils # 9.6 H (1.3-7.7) k/uL Creatine Kinase 158 H (30-135) U/L Thrombosis Risk Factor Assmnt - Choose All That Apply Any of the Below Risk Factors Present?: No Other Risk Factors: No Other congenital or acquired thrombophilia - If yes, enter type in comment: No Thrombosis Risk Factor Assessment Level: Very Low Risk Assessment and Plan Plan: -Acute asthma exacerbation: Patient will be continued on systemic steroids and inhalational treatments will not require antibiotics patient has ALLERGIC bronchitis. -Musculoskeletal upper back pain we will use Toradol for pain along with GI prophylaxis. -Leukocytosis reactive and secondary to asthma. 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 which will be continued DVT prophylaxis: Early ablation
--- NOTE | 2018-10-20 17:42 | P.CNPUL ---
History of Present Illness Consult date: 10/20/18 Reason for consult: dyspnea, cough, asthma Chief complaint: Cough, shortness of breath History of present illness: This is a 23 year old female who presented to the emergency department complaining of shortness of breath and cough. The patient states this has been worsening over the last few days. She is coughing up yellow phlegm. She has a known history of severe persistent asthma but has not followed up in the [facility] office since March of 2017. She is on Qvar and Albuterol. The patient denies fever and chills. She states she feels like her chest is tight and she isn't moving a lot of air. Review of Systems All systems: negative Past Medical History Past Medical History: Asthma Additional Past Medical History / Comment(s): Chronic asthma History of Any Multi-Drug Resistant Organisms: None Reported Past Surgical History: Section Additional Past Surgical History / Comment(s): [place] tooth extraction Past Anesthesia/Blood Transfusion Reactions: No Reported Reaction Additional Past Anesthesia/Blood Transfusion Reaction / Comment(s): no anesthesia or blood before Smoking Status: Never smoker - Past Family History Father Family Medical History: Asthma Mother Family Medical History: No Reported History Medications and Allergies Home Medications Medication Instructions Recorded Confirmed Type Albuterol Inhaler [Ventolin Hfa 2 puff INHALATION RT-Q4H PRN 11/17/16 10/20/18 History Inhaler] Albuterol Nebulized [Ventolin 2.5 mg INHALATION RT-Q4H 05/02/17 10/20/18 History Nebulized] Acetaminophen Tab [Tylenol] 1,000 mg PO DAILY 06/15/18 10/20/18 History Montelukast [Singulair] 10 mg PO HS 06/15/18 10/20/18 History Naproxen Sodium [Aleve] 220 mg PO Q8H 06/15/18 10/20/18 History Allergies Allergy/AdvReac Type Severity Reaction Status Date / Time amoxicillin [Amoxicillin] Allergy Anaphylaxis Verified 10/20/18 08:06 Physical Exam Osteopathic Statement: *. No significant issues noted on an osteopathic structural exam other than those noted in the History and Physical/Consult. Vitals: Vital Signs Temp Pulse Resp BP Pulse Ox 10/20/18 15:54 100 10/20/18 15:44 100 10/20/18 15:43 22 10/20/18 12:52 104 H 10/20/18 12:39 100 10/20/18 10:29 98.5 F 104 H 18 134/85 98 10/20/18 09:18 124 H 10/20/18 09:09 116 H 10/20/18 08:45 98.5 F 117 H 18 124/96 100 10/20/18 08:16 115 H 10/20/18 08:02 110 H 10/20/18 07:18 98.7 F 117 H 18 149/105 99 10/20/18 07:11 24 10/20/18 06:18 98.9 F 122 H 22 144/108 99 Intake and Output 10/20/18 10/20/18 10/20/18 06:59 14:59 22:59 Other: # Voids 2 Weight 45.359 kg General: Alert and oriented x 3, NAD CV: RRR, s1/s2 Lungs: Diminished breath sounds bilaterally Abd: Soft, NT/ND, +BS Ext: No edema Results - Laboratory Findings CBC and BMP: 10/20/18 07:45 10/20/18 07:45 PT/INR, D-dimer PT 9.7 sec (9.0-12.0) 10/20/18 07:45 INR 0.9 (<1.2) 10/20/18 07:45 D-Dimer 0.30 mg/L FEU (<0.60) 10/20/18 07:45 Abnormal lab findings: Abnormal Labs 10/20/18 10/20/18 07:45 07:45 WBC 12.3 H Neutrophils # 9.6 H Creatine Kinase 158 H - Diagnostic Findings Chest x-ray: report reviewed, image reviewed Assessment and Plan Assessment: Acute exacerbation of asthma, severe persistent, ALLERGIC Environmental ALLERGIES Tracheobronchitis Dyspnea Cough Leukocytosis likely secondary to steroids Costochondritis O2 to maintain saturation greater than or equal to 90% IV Solu-Medrol taper Pulmicort Duo nebs Doxycycline Incentive spirometry and pulmonary hygiene GI and DVT prophylaxis Singulair Patient can be restarted on Xolair, will arrange through our office leonel Tripathi Thank you for this consultation. We will continue to follow along.
[2018-10-20] MEDS ORDERED: KETOROLAC 30 MG/ML 1 ML VIAL IVP SCH (18:00)
[2018-10-20] MEDS: BUDESONIDE 0.5 MG/2 ML NEBU INHALATION SCH (19:13)
[2018-10-20] MEDS: guaiFENesin 600 MG TABLET.ER PO SCH (20:43)
[2018-10-20] MEDS: methylPREDNISolone SOD SUCCI 40 MG/ML 1 ML VIAL IV SCH (20:44)
[2018-10-20] MEDS: DOXYCYCLINE 50 MG CAP PO SCH (20:44)
[2018-10-20] MEDS: MONTELUKAST 10 MG TAB PO SCH (20:44)
[2018-10-20] MEDS: KETOROLAC 30 MG/ML 1 ML VIAL IVP PRN (20:56)
[2018-10-20] MEDS: IPRATROPIUM-ALBUTEROL 3 ML NEB INHALATION PRN (23:48)
[2018-10-21] MEDS: SODIUM CHLORIDE 0.9% 1,000 ML IV SCH ×3 (03:55→23:14)
[2018-10-21] MEDS: IPRATROPIUM-ALBUTEROL 3 ML NEB INHALATION PRN (05:24)
[2018-10-21] MEDS: IPRATROPIUM-ALBUTEROL 3 ML NEB INHALATION SCH ×2 (07:36→11:26)
[2018-10-21] MEDS: BUDESONIDE 0.5 MG/2 ML NEBU INHALATION SCH ×2 (07:36→18:04)
[2018-10-21] MEDS: guaiFENesin 600 MG TABLET.ER PO SCH ×2 (08:43→20:44)
[2018-10-21] MEDS: DOXYCYCLINE 50 MG CAP PO SCH ×2 (08:43→20:45)
[2018-10-21] MEDS: methylPREDNISolone SOD SUCCI 40 MG/ML 1 ML VIAL IV SCH ×2 (08:44→20:45)
[2018-10-21] MEDS: PANTOPRAZOLE 40 MG/10 ML VIAL IVP SCH (08:46)
[2018-10-21] MEDS: KETOROLAC 30 MG/ML 1 ML VIAL IVP PRN (08:50)
[2018-10-21] MEDS ORDERED: ACETAMINOPHEN TAB 500 MG TAB PO SCH (09:00)
[2018-10-21 10:50] VITALS: BMI 18.3
--- NOTE | 2018-10-21 13:10 | PN ---
PROGRESS NOTE DATE OF SERVICE: 10/21/2018 She continues to have tachycardia and is short of breath. She denies any fever or chills today. PHYSICAL EXAMINATION: Her respiratory rate is 16, pulse rate is 119, temperature 97.9, blood pressure 130/69, O2 sat on room air is 99%. HEENT: Reveals pupils that are equal. No jugular venous distention. CHEST: Reveals prolonged exhalation with faint expiratory wheeze. CARDIOVASCULAR SYSTEM: Reveals an S1, S2. ABDOMEN: Soft. There is no edema. White count is 12.3 with 0.4000 eosinophils. IMPRESSION: 1. Severe persistent asthma with acute exacerbation. 2. Tachycardia in part due to underlying asthma with exacerbation. 3. Eosinophilic and allergic phenotype for which the patient had been previously on Xolair. She may be candidate for Xolair versus which we shall decide as an outpatient. Continue Pulmicort, IV Solu-Medrol. Would discontinue her ipratropium and keep her on albuterol alone along with budesonide. Depending on how she does, we shall make further changes to her care. MMODL / IJN: [id number] /
--- NOTE | 2018-10-21 14:53 | P.PN ---
Subjective Patient is admitted for asthma exacerbation patient still doesn't have much air movement. Patient will be continued on systemic steroids inhalational treatments. Patient was started on oxygen by pulmonary Constitutional: Denied any fatigue denied any fever. Cardio vascular: denied any chest pain, palpitations Gastrointestinal denied any nausea vomiting Pulmonary: Continue to have significant shortness of breath upon ambulation to bathroom or short distances Neurologic denied any new focal deficits All inpatient medications were reviewed and appropriate changes in these medications as dictated in the interval history and assessment and plan. Objective - Vital Signs Vital signs: Vital Signs Temp 98.0 F 10/21/18 13:58 Pulse 86 10/21/18 13:58 Resp 20 10/21/18 13:58 BP 117/74 10/21/18 13:58 Pulse Ox 99 10/21/18 13:58 Intake & Output 10/20/18 10/21/18 10/21/18 18:59 06:59 18:59 Intake Total 600 Balance 600 Weight 45.359 kg Intake: Oral 600 Other: # Voids 2 2 - Exam PHYSICAL EXAMINATION: GENERAL: The patient is alert and oriented x3, not in any acute distress. Well developed, well nourished. HEENT: Pupils are round and equally reacting to light. EOMI. No scleral icterus. No conjunctival pallor. Normocephalic, atraumatic. No pharyngeal erythema. No thyromegaly. CARDIOVASCULAR: S1 and S2 present. No murmurs, rubs, or gallops. PULMONARY: Limited air entry into bilateral lung schulte no wheezing was appreciated patient is not using accessory muscles of breathing Reproducible upper back pain ABDOMEN: Soft, nontender, nondistended, normoactive bowel sounds. No palpable organomegaly. MUSCULOSKELETAL: No joint swelling or deformity. EXTREMITIES: No cyanosis, clubbing, or pedal edema. NEUROLOGICAL: Gross neurological examination did not reveal any focal deficits. SKIN: No rashes. - Labs CBC & Chem 7: 10/20/18 07:45 10/20/18 07:45 Assessment and Plan Plan: -Acute asthma exacerbation: Patient will be continued on systemic steroids and inhalational treatments will not require antibiotics patient has ALLERGIC bronchitis. -Musculoskeletal upper back pain we will use Toradol for pain along with GI prophylaxis. -Tachycardia: Secondary to hypoxemia from asthma exacerbation -Leukocytosis reactive and secondary to asthma. 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
[2018-10-21] MEDS: ALBUTEROL NEBULIZED 2.5 MG/3 ML INHALATION PRN (18:04)
[2018-10-21] MEDS: MONTELUKAST 10 MG TAB PO SCH (20:45)
[2018-10-21] MEDS: HEPARIN SODIUM,PORCINE 5,000 UNIT/ML 1 ML VIAL SQ SCH (20:47)
[2018-10-22] MEDS: KETOROLAC 30 MG/ML 1 ML VIAL IVP PRN ×2 (00:08→08:42)
[2018-10-22] MEDS: ALBUTEROL NEBULIZED 2.5 MG/3 ML INHALATION PRN ×3 (01:27→11:59)
[2018-10-22] MEDS: BUDESONIDE 0.5 MG/2 ML NEBU INHALATION SCH (07:56)
[2018-10-22] MEDS: methylPREDNISolone SOD SUCCI 40 MG/ML 1 ML VIAL IV SCH (08:41)
[2018-10-22] MEDS: guaiFENesin 600 MG TABLET.ER PO SCH (08:42)
[2018-10-22] MEDS: PANTOPRAZOLE 40 MG/10 ML VIAL IVP SCH (08:42)
[2018-10-22] MEDS: DOXYCYCLINE 50 MG CAP PO SCH (08:42)
[2018-10-22] MEDS: SODIUM CHLORIDE 0.9% 1,000 ML IV SCH (08:47)
[2018-10-22 13:11] VITALS: BP 146/78; TEMP 98.3
[2018-10-22 13:12] VITALS: PULSE 115; RESP 22
[2018-10-22] MEDS: HEPARIN SODIUM,PORCINE 5,000 UNIT/ML 1 ML VIAL SQ SCH (14:04)
--- NOTE | 2018-10-22 16:46 | PN ---
PROGRESS NOTE DATE OF SERVICE: 10/22/2018 She was seen again on 10/22/2018. She has been hemodynamically stable. She is less short of breath. She is also less tachycardic. On physical examination respiratory rate is 18, pulse rate is 98. She is afebrile. Blood pressure is stable. HEENT reveals pupils that are equal. CHEST is clear. CARDIOVASCULAR SYSTEM: S1, S2. ABDOMEN is soft. EXTREMITIES: There is no edema. IMPRESSION: At this time is: Severe persistent allergic asthma with eosinophilic phenotype. Continue bronchodilators, aerosolized steroids, systemic steroids, would start to taper these and can be done as an outpatient over a 12 day. Starting at 60 mg. I agree with possible discharge planning. She was counseled regarding her condition and this approach and has a fair understanding of our recommendations. MMNATALIOL / IJN: [id number] /
--- NOTE | 2018-10-24 14:23 | P.DS ---
Providers Date of admission: 10/20/18 10:00 Expected date of discharge: 10/22/18 Attending physician: Chito Hidalgo MD Consults: 10/20/18 13:12 Consult Physician Routine Consulting Provider: Yenny Breen Consult Reason/Comments: asthma Do you want consulting provider notified?: Yes Primary care physician: [facility] Course: Patient was admitted for asthma exacerbation clinically doing well. Saturated 9% on room air being discharged on weaning dose of steroids. Patient has [place] skeletal chest pain. For that patient will use extra strength Tylenol. PHYSICAL EXAMINATION: GENERAL: The patient is alert and oriented x3, not in any acute distress. Well developed, well nourished. HEENT: Pupils are round and equally reacting to light. EOMI. No scleral icterus. No conjunctival pallor. Normocephalic, atraumatic. No pharyngeal erythema. No thyromegaly. CARDIOVASCULAR: S1 and S2 present. No murmurs, rubs, or gallops. PULMONARY: Minimally decreased air entry into bilateral lung schulte ABDOMEN: Soft, nontender, nondistended, normoactive bowel sounds. No palpable organomegaly. MUSCULOSKELETAL: No joint swelling or deformity. EXTREMITIES: No cyanosis, clubbing, or pedal edema. NEUROLOGICAL: Gross neurological examination did not reveal any focal deficits. SKIN: No rashes. Assessment and Plan Plan: -Acute asthma exacerbation: -Musculoskeletal upper back pain we will use Toradol for pain along with GI prophylaxis. -Tachycardia: Secondary to hypoxemia from asthma exacerbation -Leukocytosis reactive and secondary to asthma. 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 which will be continued Plan - Discharge Summary Discharge Rx Participant: No New Discharge Prescriptions: New Etodolac [Lodine] 200 mg PO BID #10 capsule predniSONE 10 mg PO DAILY #40 tab Ranitidine HCl [Zantac] 150 mg PO BID #30 tab No Action Albuterol Inhaler [Ventolin Hfa Inhaler] 2 puff INHALATION RT-Q4H PRN PRN Reason: Shortness Of Breath Albuterol Nebulized [Ventolin Nebulized] 2.5 mg INHALATION RT-Q4H Montelukast [Singulair] 10 mg PO HS Discharge Medication List Albuterol Inhaler [Ventolin Hfa Inhaler] 2 puff INHALATION RT-Q4H PRN 11/17/16 [History] Albuterol Nebulized [Ventolin Nebulized] 2.5 mg INHALATION RT-Q4H 05/02/17 [History] Montelukast [Singulair] 10 mg PO HS 06/15/18 [History] Etodolac [Lodine] 200 mg PO BID #10 capsule 10/22/18 [Rx] Ranitidine HCl [Zantac] 150 mg PO BID #30 tab 10/22/18 [Rx] predniSONE 10 mg PO DAILY #40 tab 10/22/18 [Rx] Follow up Appointment(s)/Referral(s): Hyacinth Montero MD [Primary Care Provider] - 3 Days Mike Osborne MD [STAFF PHYSICIAN] - 1 Week (FOLLOW UP IN 2 DAYS) Care Plan Goals (MU): FOLLOW UP WITH DR OSBORNE, SOONER OR RETURN TO ER IF WORSENING SYMPTOMS, PROBLEMS, OR CONCERNS. Discharge Disposition: HOME SELF-CARE
== END 2018-10-22 15:10 | disposition home or self-care (01) ==
LOC: EC 06:14 → 6PED 10:00 → INTOOBSV 10:00 → 6PED 10:34
PROVIDERS: ADMIT Internal Medicine; ATTEND Internal Medicine
DX: J45.51 Severe persistent asthma with (acute) exacerbation (principal); J34.89 Other specified disorders of nose and nasal sinuses; M54.6 Pain in thoracic spine; D72.829 Elevated white blood cell count, unspecified; J30.2 Other seasonal allergic rhinitis; M94.0 Chondrocostal junction syndrome [Tietze]; R00.0 Tachycardia, unspecified; R09.02 Hypoxemia; R07.89 Other chest pain; Z79.1 Long term (current) use of non-steroidal anti-inflammatories (NSAID); Z79.899 Other long term (current) drug therapy; Z88.0 Allergy status to penicillin; Z82.5 Family history of asthma and other chronic lower respiratory diseases
CPT/HCPCS: 96361 ×4; 96372 ×2; 96375; 96376 ×3; 96374; 99285; 36415; 94640 ×6; 94760; 93005; 85379; 80053; 82550; 82553; 84484; 85025; 85610; 85730; 81025; 84703; 87502; 71045; G0378 ×3; J1644 ×2; J2920 ×3; J2930; J1885 ×3; C9113 ×3

== ENCOUNTER 2018-12-30 20:52 | Emergency (ER) | payer OTHER ==
[2018-12-30] MEDS ORDERED: IPRATROPIUM-ALBUTEROL 3 ML NEB INHALATION STA (21:10)
[2018-12-30 21:54] LABS: Basophils # (A) 0.1 k/uL (0-0.2); Basophils % (A) 1 %; Eosinophils # (A) 0.4 k/uL (0-0.7); Eosinophils % (A) 4 %; HCT 41.4 % (34.0-46.0); HGB 13.3 gm/dL (11.4-16.0); Lymphocytes # (A) 3.3 k/uL (1.0-4.8); Lymphocytes % (A) 37 %; MCH 28.9 pg (25.0-35.0); MCHC 32.2 g/dL (31.0-37.0); MCV 89.7 fL (80.0-100.0); Mean Platelet Volume 7.7; Monocytes # (A) 0.5 k/uL (0-1.0); Monocytes % (A) 5 %; Neutrophils # (A) 4.5 k/uL (1.3-7.7); Neutrophils % (A) 50 %; Platelet Count 235 k/uL (150-450); RBC 4.61 m/uL (3.80-5.40); RDW 15.1 % (11.5-15.5)
[2018-12-30 22:10] LABS: ALT 14 U/L (9-52); AST 20 U/L (14-36); African American GFR (CKD) >90 (>60 ml/min/1.73 sqM); Albumin 4.7 g/dL (3.5-5.0); Alkaline Phosphatase 71 U/L (38-126); Anion Gap 9 mmol/L; Blood Urea Nitrogen 15 mg/dL (7-17); Calcium 9.6 mg/dL (8.4-10.2); Carbon Dioxide 27 mmol/L (22-30); Chloride 104 mmol/L (98-107); Glucose 98 mg/dL (74-99); Magnesium 2.2 mg/dL (1.6-2.3); Potassium 4.1 mmol/L (3.5-5.1); Sodium 140 mmol/L (137-145); Total Bilirubin 0.2 mg/dL (0.2-1.3)
[2018-12-30] MEDS ORDERED: predniSONE 20 MG TAB PO STA (23:25)
--- NOTE | 2018-12-30 23:27 | ED ---
SOB HPI - General Chief Complaint: Shortness of Breath Stated Complaint: Asthma Time Seen by Provider: 12/30/18 21:20 Source: patient Mode of arrival: ambulatory - History of Present Illness Initial Comments: Nicole is a 23-year-old female with a history of asthma for which she follows with Dr. Phillips. Patient also has a history of a spontaneous pneumothorax last year. Patient reports that throughout the day today she has felt short of breath however she was at work and couldn't leave her job. She reports that upon returning home she did a nebulized treatment but didn't feeling better so she decided to come to the ER for evaluation. Patient reports that she has asthma symptoms more frequent during the summer due to the humidity. She reports that she was recently on steroids approximately 2 weeks ago she reports she felt better when she was on the steroids. 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 Patient reports feeling like her breathing is very tight and she is having some pain on the right side, this pain is nothing like when she had a collapsed lung. She just feels like she is been working too hard to breathe all day. Complaint: "asthma attack" Onset/Timin -: hour(s) - Related Data Home Medications Medication Instructions Recorded Confirmed Albuterol Inhaler [Ventolin Hfa 2 puff INHALATION RT-Q4H PRN 11/17/16 12/30/18 Inhaler] Albuterol Nebulized [Ventolin 2.5 mg INHALATION RT-QID 05/02/17 12/30/18 Nebulized] Montelukast [Singulair] 10 mg PO DAILY 06/15/18 12/30/18 Beclomethasone Dipropionate [Qvar 2 puff INHALATION RT-DAILY 12/30/18 12/30/18 80 mcg] Previous Rx's Medication Instructions Recorded predniSONE 10 mg PO DAILY #40 tab 10/22/18 predniSONE [Deltasone] 40 mg PO DAILY 5 Days #10 tablet 12/30/18 Allergies Allergy/AdvReac Type Severity Reaction Status Date / Time amoxicillin [Amoxicillin] Allergy Anaphylaxis Verified 12/30/18 21:30 Review of Systems ROS Statement: Those systems with pertinent positive or pertinent negative responses have been documented in the HPI. ROS Other: All systems not noted in ROS Statement are negative. Past Medical History Past Medical History: Asthma Additional Past Medical History / Comment(s): Chronic asthma History of Any Multi-Drug Resistant Organisms: None Reported Past Surgical History: Section Additional Past Surgical History / Comment(s): [place] tooth extraction Past Anesthesia/Blood Transfusion Reactions: No Reported Reaction Additional Past Anesthesia/Blood Transfusion Reaction / Comment(s): no anesthesia or blood before Past Psychological History: No Psychological Hx Reported Smoking Status: Never smoker - Past Family History Father Family Medical History: Asthma Mother Family Medical History: No Reported History General Exam - General Exam Comments Initial Comments: Physical Exam GENERAL: Patient is well-developed and well-nourished. Patient is nontoxic and well- hydrated and is in no distress. HENT: Normocephalic, Atraumatic. EYES: PERRL, EOMI PULMONARY: Give me out with some mild expiratory wheezing CARDIOVASCULAR: There is a regular rate and rhythm without any murmurs gallops or rubs. ABDOMEN: Soft and nontender with normal bowel sounds. SKIN: Skin is clear with no lesions or rashes and otherwise unremarkable. : Deferred NEUROLOGIC: Patient is alert and oriented x3. Moving all extremities spontaneously MUSCULOSKELETAL: Normal extremities with adequate strength and full range of motion. No lower extremity swelling or edema. No calf tenderness. PSYCHIATRIC: Normal psychiatric evaluation. Limitations: no limitations Course Vital Signs 12/30/18 12/30/18 12/30/18 21:01 21:14 21:22 Temperature 98.4 F Pulse Rate 118 H 117 H 99 Respiratory 32 H Rate Blood Pressure 162/92 O2 Sat by Pulse 100 Oximetry 12/30/18 23:54 Temperature 98.0 F Pulse Rate 87 Respiratory 16 Rate Blood Pressure 136/86 O2 Sat by Pulse 99 Oximetry Medical Decision Making - Medical Decision Making Patient was seen and evaluated, history is obtained from the patient Breathing treatments, chest x-ray and labs were ordered chest x-ray no acute findings Labs within normal limits She was reevaluated, she reports some improvement. A second breathing treatment was ordered and given as well as by mouth steroids. At this time patient reported feeling better and is comfortable with plan for discharge home. All questions pertaining to care were answered to the best of my ability return parameters were discussed the importance of follow-up pulmonology was discussed patient was discharged home in stable condition. - Lab Data Result diagrams: 12/30/18 21:39 12/30/18 21:39 Lab Results 12/30/18 12/30/18 12/30/18 Range/Units 21:39 21:39 22:02 WBC 9.0 (3.8-10.6) k/uL RBC 4.61 (3.80-5.40) m/uL Hgb 13.3 (11.4-16.0) gm/dL Hct 41.4 (34.0-46.0) % MCV 89.7 (80.0-100.0) fL MCH 28.9 (25.0-35.0) pg MCHC 32.2 (31.0-37.0) g/dL RDW 15.1 (11.5-15.5) % Plt Count 235 (150-450) k/uL Neutrophils % 50 % Lymphocytes % 37 % Monocytes % 5 % Eosinophils % 4 % Basophils % 1 % Neutrophils # 4.5 (1.3-7.7) k/uL Lymphocytes # 3.3 (1.0-4.8) k/uL Monocytes # 0.5 (0-1.0) k/uL Eosinophils # 0.4 (0-0.7) k/uL Basophils # 0.1 (0-0.2) k/uL Sodium 140 (137-145) mmol/L Potassium 4.1 (3.5-5.1) mmol/L Chloride 104 (98-107) mmol/L Carbon Dioxide 27 (22-30) mmol/L Anion Gap 9 mmol/L BUN 15 (7-17) mg/dL Creatinine 0.93 (0.52-1.04) mg/dL Est GFR (CKD-EPI)AfAm >90 (>60 ml/min/1.73 sqM) Est GFR (CKD-EPI)NonAf 87 (>60 ml/min/1.73 sqM) Glucose 98 (74-99) mg/dL Calcium 9.6 (8.4-10.2) mg/dL Magnesium 2.2 (1.6-2.3) mg/dL Total Bilirubin 0.2 (0.2-1.3) mg/dL AST 20 (14-36) U/L ALT 14 (9-52) U/L Alkaline Phosphatase 71 (38-126) U/L Total Protein 8.0 (6.3-8.2) g/dL Albumin 4.7 (3.5-5.0) g/dL Urine HCG, Qual Not Detected (Not Detectd) Disposition Clinical Impression: Asthma exacerbation Disposition: HOME SELF-CARE Condition: Stable Instructions (If sedation given, give patient instructions): Asthma (ED) Prescriptions: predniSONE [Deltasone] 40 mg PO DAILY 5 Days #10 tablet Is patient prescribed a controlled substance at d/c from ED?: No Referrals: Hyacinth Montero MD [Primary Care Provider] - 1-2 days
[2018-12-30] MEDS: ALBUTEROL NEBULIZED 2.5 MG/3 ML INHALATION STA ×2 (23:49→23:52)
--- NOTE | 2018-12-30 23:49 | XR ---
EXAM: XR Chest, 2 Views CLINICAL HISTORY: ITS.REASON XR Reason: Pain TECHNIQUE: Frontal and lateral views of the chest. COMPARISON: Chest radiography 10/20/18 FINDINGS: Lungs: Unremarkable. No consolidation. Pleural space: Unremarkable. No pneumothorax. Heart: Unremarkable. No cardiomegaly. Mediastinum: Unremarkable. Bones/joints: Unremarkable. IMPRESSION: Normal chest x-rays.
[2018-12-30 23:56] VITALS: BP 136/86; PULSE 87; RESP 16; TEMP 98
== END 2018-12-30 23:55 | disposition home or self-care (01) ==
LOC: EC 20:52
DX: J45.901 Unspecified asthma with (acute) exacerbation (principal); Z88.0 Allergy status to penicillin; Z79.51 Long term (current) use of inhaled steroids; Z79.899 Other long term (current) drug therapy; Z87.09 Personal history of other diseases of the respiratory system; Z82.5 Family history of asthma and other chronic lower respiratory diseases
CPT/HCPCS: 36415; 94640; 80053; 83735; 85025; 81025; 71046; 99285; J7512

== ENCOUNTER 2019-04-10 21:18 | Emergency (ER) | payer OTHER ==
--- NOTE | 2019-04-10 21:48 | ED ---
General Adult HPI - General Chief complaint: Neuro Symptoms/Deficit Stated complaint: Doesn't feel right, body numbness, 10 weeks preg Time Seen by Provider: 04/10/19 21:45 Source: patient Mode of arrival: ambulatory Limitations: no limitations - History of Present Illness Initial comments: Nicole is a 24yo female currently approximately 10 weeks . Patient presents the emergency department today for evaluation of generalized body tingling and numbness. Patient reports that for the past 2 week she's been feeling like her entire body is tingling, it's become more pronounced today. Patient states she feels like her entire body is weak and numb but she still feel tingling everywhere. Patient does admit she's been nauseated had some vomiting and not been eating or drinking well. She denies any headache, vision changes, difficulty with speech or swallowing, difficulty with walking. Patient reports the symptoms of been persistent for about 2 weeks she's been able to attend to her activities of daily living despite the symptoms, today the symptoms were prominent which prompted her come to the ER for reevaluation. - Related Data Home Medications Medication Instructions Recorded Confirmed Albuterol Inhaler [Ventolin Hfa 2 puff INHALATION RT-Q4H PRN 11/17/16 04/10/19 Inhaler] Albuterol Nebulized [Ventolin 2.5 mg INHALATION RT-QID PRN 05/02/17 04/10/19 Nebulized] Montelukast [Singulair] 10 mg PO DAILY 06/15/18 04/10/19 Beclomethasone Dipropionate [Qvar 2 puff INHALATION RT-DAILY 12/30/18 04/10/19 80 mcg] Pnv No.95/Ferrous Fum/Folic AC 1 tab PO DAILY 04/10/19 04/10/19 [ Multivitamin Tablet] Allergies Allergy/AdvReac Type Severity Reaction Status Date / Time amoxicillin [Amoxicillin] Allergy Anaphylaxis Verified 04/10/19 21:45 Review of Systems ROS Statement: Those systems with pertinent positive or pertinent negative responses have been documented in the HPI. ROS Other: All systems not noted in ROS Statement are negative. Past Medical History Past Medical History: Asthma Additional Past Medical History / Comment(s): Chronic asthma History of Any Multi-Drug Resistant Organisms: None Reported Past Surgical History: Section Additional Past Surgical History / Comment(s): [place] tooth extraction Past Anesthesia/Blood Transfusion Reactions: No Reported Reaction Additional Past Anesthesia/Blood Transfusion Reaction / Comment(s): no anesthesia or blood before Past Psychological History: No Psychological Hx Reported Smoking Status: Never smoker - Past Family History Father Family Medical History: Asthma Mother Family Medical History: No Reported History General Exam - General Exam Comments Initial Comments: Physical Exam GENERAL: Patient is well-developed underweight female Patient is nontoxic and well-hydrated and is in no distress. HENT: Normocephalic, Atraumatic. EYES: PERRL, EOMI PULMONARY: Unlabored respirations. No audible rales rhonchi or wheezing was noted. CARDIOVASCULAR: There is a regular rate and rhythm without any murmurs gallops or rubs. ABDOMEN: Soft and nontender with normal bowel sounds. SKIN: Skin is clear with no lesions or rashes and otherwise unremarkable. : Deferred NEUROLOGIC: CN II-XII grossly intact Patient is alert and oriented x3. Normal gait Moving all extremities spontaneously MUSCULOSKELETAL: Normal extremities with adequate strength and full range of motion. No lower e xtremity swelling or edema. No calf tenderness. PSYCHIATRIC: Normal psychiatric evaluation. Limitations: no limitations Course Vital Signs 04/10/19 21:38 Temperature 98.8 F Pulse Rate 89 Respiratory 16 Rate Blood Pressure 158/98 O2 Sat by Pulse 94 L Oximetry Medical Decision Making - Medical Decision Making The patient was seen and evaluated upon arrival to the emergency Department excised 24-year-old female 10 weeks she's had nausea and vomiting throughout the she's not been eating or drinking well she reports she feels numbness and tingling all over her body but most prominent in her arms Labs were obtained, patient's mildly hyponatremic shorts otherwise within normal limits CBC within normal limits Results were discussed with the patient, given the patient's symptoms are most prominent in her bilateral hands he did discuss possibility of carpal tunnel in the hand secondary to advised that she likely needs braces for his needs 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 All questions pertaining care were answered return parameters discussed patient is discharged home in stable condition. - Lab Data Result diagrams: 04/10/19 22:00 04/10/19 22:00 Lab Results 04/10/19 04/10/19 Range/Units 22:00 22:00 WBC 8.1 (3.8-10.6) k/uL RBC 4.01 (3.80-5.40) m/uL Hgb 11.9 (11.4-16.0) gm/dL Hct 36.6 (34.0-46.0) % MCV 91.3 (80.0-100.0) fL MCH 29.6 (25.0-35.0) pg MCHC 32.4 (31.0-37.0) g/dL RDW 14.0 (11.5-15.5) % Plt Count 243 (150-450) k/uL Neutrophils % 61 % Lymphocytes % 27 % Monocytes % 6 % Eosinophils % 5 % Basophils % 0 % Neutrophils # 4.9 (1.3-7.7) k/uL Lymphocytes # 2.1 (1.0-4.8) k/uL Monocytes # 0.4 (0-1.0) k/uL Eosinophils # 0.4 (0-0.7) k/uL Basophils # 0.0 (0-0.2) k/uL Sodium 135 L (137-145) mmol/L Potassium 3.8 (3.5-5.1) mmol/L Chloride 104 (98-107) mmol/L Carbon Dioxide 23 (22-30) mmol/L Anion Gap 8 mmol/L BUN 8 (7-17) mg/dL Creatinine 0.48 L (0.52-1.04) mg/dL Est GFR (CKD-EPI)AfAm >90 (>60 ml/min/1.73 sqM) Est GFR (CKD-EPI)NonAf >90 (>60 ml/min/1.73 sqM) Glucose 94 (74-99) mg/dL Calcium 9.4 (8.4-10.2) mg/dL Magnesium 1.9 (1.6-2.3) mg/dL Total Bilirubin <0.1 L (0.2-1.3) mg/dL AST 18 (14-36) U/L ALT 13 (9-52) U/L Alkaline Phosphatase 57 (38-126) U/L Creatine Kinase 130 (30-135) U/L Total Protein 6.9 (6.3-8.2) g/dL Albumin 3.9 (3.5-5.0) g/dL Disposition Clinical Impression: Carpal tunnel syndrome, Hyponatremia, Nausea and vomiting during Disposition: HOME SELF-CARE Condition: Stable Instructions (If sedation given, give patient instructions): Paresthesia (ED) Is patient prescribed a controlled substance at d/c from ED?: No Referrals: Hyacinth Montero MD [Primary Care Provider] - 1-2 days
[2019-04-10] MEDS ORDERED: SODIUM CHLORIDE 0.9% 1,000 ML IV ONE (22:02)
[2019-04-10 22:18] LABS: Basophils % (A) 0 %; Eosinophils # (A) 0.4 k/uL (0-0.7); Eosinophils % (A) 5 %; HCT 36.6 % (34.0-46.0); HGB 11.9 gm/dL (11.4-16.0); Lymphocytes # (A) 2.1 k/uL (1.0-4.8); Lymphocytes % (A) 27 %; MCH 29.6 pg (25.0-35.0); MCHC 32.4 g/dL (31.0-37.0); MCV 91.3 fL (80.0-100.0); Mean Platelet Volume 6.8; Monocytes # (A) 0.4 k/uL (0-1.0); Monocytes % (A) 6 %; Neutrophils # (A) 4.9 k/uL (1.3-7.7); Neutrophils % (A) 61 %; Platelet Count 243 k/uL (150-450); RBC 4.01 m/uL (3.80-5.40); WBC 8.1 k/uL (3.8-10.6)
[2019-04-10 22:22] LABS: ALT 13 U/L (9-52); AST 18 U/L (14-36); African American GFR (CKD) >90 (>60 ml/min/1.73 sqM); Albumin 3.9 g/dL (3.5-5.0); Alkaline Phosphatase 57 U/L (38-126); Anion Gap 8 mmol/L; Blood Urea Nitrogen 8 mg/dL (7-17); Calcium 9.4 mg/dL (8.4-10.2); Carbon Dioxide 23 mmol/L (22-30); Chloride 104 mmol/L (98-107); Creatine Kinase 130 U/L (30-135); Glucose 94 mg/dL (74-99); Magnesium 1.9 mg/dL (1.6-2.3); Potassium 3.8 mmol/L (3.5-5.1); Sodium 135 mmol/L (137-145); Total Bilirubin <0.1 mg/dL (0.2-1.3); Total Protein 6.9 g/dL (6.3-8.2)
[2019-04-10 22:53] VITALS: BP 139/72; PULSE 83; RESP 18; TEMP 98.3
== END 2019-04-10 22:51 | disposition home or self-care (01) ==
LOC: EC 21:18
DX: E87.1 Hypo-osmolality and hyponatremia (principal); O99.281 Endocrine, nutritional and metabolic diseases complicating pregnancy, first trimester; O99.351 Diseases of the nervous system complicating pregnancy, first trimester; G56.00 Carpal tunnel syndrome, unspecified upper limb; O99.511 Diseases of the respiratory system complicating pregnancy, first trimester; J45.909 Unspecified asthma, uncomplicated; Z79.51 Long term (current) use of inhaled steroids; Z79.899 Other long term (current) drug therapy; Z88.0 Allergy status to penicillin; Z3A.10 10 weeks gestation of pregnancy
CPT/HCPCS: 36415; 80053; 82550; 83735; 85025; 96360; 99284

== ENCOUNTER 2019-05-05 13:06 | Inpatient (IN) | payer MEDICAID, OTHER ==
[2019-05-05 14:20] LABS: Basophils % (A) 0 %; Eosinophils # (A) 0.3 k/uL (0-0.7); Eosinophils % (A) 3 %; HCT 38.5 % (34.0-46.0); HGB 12.6 gm/dL (11.4-16.0); Lymphocytes # (A) 1.6 k/uL (1.0-4.8); Lymphocytes % (A) 18 %; MCH 29.9 pg (25.0-35.0); MCHC 32.8 g/dL (31.0-37.0); MCV 91.1 fL (80.0-100.0); Mean Platelet Volume 6.8; Monocytes # (A) 0.5 k/uL (0-1.0); Monocytes % (A) 5 %; Neutrophils # (A) 6.2 k/uL (1.3-7.7); Neutrophils % (A) 71 %; Platelet Count 243 k/uL (150-450); RBC 4.22 m/uL (3.80-5.40); RDW 13.7 % (11.5-15.5); WBC 8.8 k/uL (3.8-10.6)
--- NOTE | 2019-05-05 14:24 | XR ---
EXAMINATION TYPE: XR chest 2V DATE OF EXAM: 05/05/2019 COMPARISON: 12/30/2018 HISTORY: Chest pain TECHNIQUE: Frontal and lateral views of the chest are obtained. FINDINGS: Heart is normal. Heart is shifted slightly to the right side related to tension pneumothor ax. There is very large left side pneumothorax. Right lung is clear. There are chest leads. Bony thor ax is intact. IMPRESSION: There is a mild left side tension pneumothorax. This exam was discussed with Sweetie Landaverde at 2:20 PM.
[2019-05-05 14:30] LABS: ALT 13 U/L (9-52); AST 20 U/L (14-36); African American GFR (CKD) >90 (>60 ml/min/1.73 sqM); Albumin 4.1 g/dL (3.5-5.0); Alkaline Phosphatase 68 U/L (38-126); Anion Gap 9 mmol/L; Blood Urea Nitrogen 6 mg/dL (7-17); Calcium 9.8 mg/dL (8.4-10.2); Carbon Dioxide 23 mmol/L (22-30); Chloride 105 mmol/L (98-107); Glucose 88 mg/dL (74-99); Potassium 3.8 mmol/L (3.5-5.1); Sodium 137 mmol/L (137-145); Total Bilirubin 0.4 mg/dL (0.2-1.3); Total Protein 7.5 g/dL (6.3-8.2)
[2019-05-05 14:31] LABS: INR 0.9 (<1.2); Partial Thromboplastin Time 23.3 sec (22.0-30.0); Prothrombin Time 9.6 sec (9.0-12.0)
[2019-05-05] MEDS ORDERED: MORPHINE SULFATE 2 MG/ML SYRINGE IVP STA ×2 (14:58→15:34)
--- NOTE | 2019-05-05 15:06 | ED ---
Chest Pain HPI - General Source: patient Mode of arrival: ambulatory Limitations: no limitations <Sweetie Landaverde - Last Filed: 05/05/19 15:02> <[place] - Last Filed: 05/05/19 15:43> - General Chief Complaint: Chest Pain Stated Complaint: Chest pain/ANNE Time Seen by Provider: 05/05/19 13:33 - History of Present Illness Initial Comments: Patient is a 24-year-old female presenting to the emergency Department with complaints of a acute onset of left-sided chest pain. Patient states the pain started approximately 1 AM this morning and has been constant and sharp in nature. Patient describes the pain as anterior that also wraps around to her left back. Patient denies any injuries or falls. Patient does admit to being a severe asthmatic. Patient states she was feeling fine yesterday and has not been coughing. Patient denies a recent fever, chills or changes in medications. Patient denies recent travel. Of note patient is currently 13 weeks . Patient's has been uncomplicated thus far. Patient denies history of DVTs or PEs. Denies history of heart disease. Patient has no other complaints at this time. Upon arrival to the ER, patient was just slightly tachycardia at 100, otherwise normal vital signs. (Sweetie Landaverde) - Related Data Home Medications Medication Instructions Recorded Confirmed Albuterol Inhaler [Ventolin Hfa 2 puff INHALATION RT-Q4H PRN 11/17/16 04/10/19 Inhaler] Albuterol Nebulized [Ventolin 2.5 mg INHALATION RT-QID PRN 05/02/17 04/10/19 Nebulized] Montelukast [Singulair] 10 mg PO DAILY 06/15/18 04/10/19 Beclomethasone Dipropionate [Qvar 2 puff INHALATION RT-DAILY 12/30/18 04/10/19 80 mcg] Pnv No.95/Ferrous Fum/Folic AC 1 tab PO DAILY 04/10/19 04/10/19 [ Multivitamin Tablet] Allergies Allergy/AdvReac Type Severity Reaction Status Date / Time amoxicillin [Amoxicillin] Allergy Anaphylaxis Verified 04/10/19 21:45 Review of Systems ROS Other: All systems not noted in ROS Statement are negative. <Sweetie Landaverde - Last Filed: 05/05/19 15:02> ROS Other: All systems not noted in ROS Statement are negative. <[place] - Last Filed: 05/05/19 15:43> ROS Statement: Those systems with pertinent positive or pertinent negative responses have been documented in the HPI. EKG Findings - EKG Comments: EKG Findings:: Ventricular rate 88, NM interval 164, QTC 428. Normal sinus rhythm with sinus arrhythmia. No acute ST segment changes. <Sweetie Landaverde - Last Filed: 05/05/19 15:02> Past Medical History Past Medical History: Asthma Additional Past Medical History / Comment(s): Chronic asthma History of Any Multi-Drug Resistant Organisms: None Reported Past Surgical History: Section Additional Past Surgical History / Comment(s): [place] tooth extraction Past Anesthesia/Blood Transfusion Reactions: No Reported Reaction Additional Past Anesthesia/Blood Transfusion Reaction / Comment(s): no anesthesia or blood before Past Psychological History: No Psychological Hx Reported Smoking Status: Never smoker Past Alcohol Use History: None Reported Past Drug Use History: None Reported - Past Family History Father Family Medical History: Asthma Mother Family Medical History: No Reported History <Sweetie Landaverde - Last Filed: 05/05/19 15:02> General Exam Limitations: no limitations <Sweetie Landaverde - Last Filed: 05/05/19 15:02> - General Exam Comments Initial Comments: GENERAL: Well-appearing, well-nourished and in no acute distress, but appears uncomfortable. HEAD: Atraumatic, normocephalic. EYES: Pupils equal round and reactive to light, extraocular movements intact, sclera anicteric, conjunctiva are normal. ENT: Nares patent, oropharynx clear without exudates. Moist mucous membranes. NECK: Normal range of motion, supple without lymphadenopathy or JVD. LUNGS: Decreased breath sounds on the left. No wheezes rales or rhonchi. Tender to palpation of the left anterior and lateral chest. Mild pain with palpation of the left posterior thoracic area. HEART: Slightly tachycardia rate and rhythm without murmurs, rubs or gallops. ABDOMEN: Soft, nontender, normoactive bowel sounds. No guarding, no rebound. No masses appreciated. EXTREMITIES: Normal range of motion, no pitting or edema. No clubbing or cyanosis. PSYCH: Normal mood, normal affect. SKIN: Warm, Dry, normal turgor, no rashes or lesions noted. (Sweetie Landaverde) Course Vital Signs 05/05/19 13:27 Temperature 98.3 F Pulse Rate 100 Respiratory 18 Rate Blood Pressure 130/85 O2 Sat by Pulse 98 Oximetry Procedures - Chest Tube Insertion Consent Obtained: written consent Side of Procedure: left Indication: Pneumothorax Placed on monitor/pulse oximetry: Yes Site Prep: Chloroprep Local Anesthesia: Lidocaine 1% Amount (mLs): 4 Insertion Site: Other (Midclavicular line, second intercostal space on the left) Scalpel: #11 Open into Pleural Space Using: Trocar Tube Size (Mongolian): Other (7) Returns: Air Sutured in Place: No Attached to Suction: No Repeat X-ray Results: Other (Partial reexpansion) Patient Tolerated Procedure: well <[place] - Last Filed: 05/05/19 15:43> Chest Pain MDM <[place] - Last Filed: 05/05/19 15:43> - MDM 24-year-old female presenting with pleuritic left-sided chest pain. Symptoms present for approximately 12 hours prior to arrival. Initial vital signs are stable. Chest x-rays obtained, shows large left-sided pneumothorax with mild tension. Patient is immediately taken to the resuscitation day, consent is signed for placement of left-sided for event. This is replaced with local anesthetic. Patient tolerates the procedure very well. She has improved expansion pneumothorax on repeat x-ray. Vital signs remained stable in heart rate improves. I did discuss his case with both the admitting physician and [facility] pulmonary sales service technician Dr. Christiansen. Diagnosis: Spontaneous left-sided tension pneumothorax. ([place]) Critical Care Time Critical Care Time: Yes Total Critical Care Time: 35 <[place] - Last Filed: 05/05/19 15:43> Disposition <Sweetie Landaverde - Last Filed: 05/05/19 15:02> Is patient prescribed a controlled substance at d/c from ED?: No Decision to Admit Reason: Admit from EC Decision Date: 05/05/19 Decision Time: 15:43 <[place] - Last Filed: 05/05/19 15:43> Clinical Impression: Pneumothorax, Spontaneous tension pneumothorax Disposition: ADMITTED IP TO THIS HOSP Condition: Serious Referrals: Hyacinth Monteor MD [Primary Care Provider] - 1-2 days
--- NOTE | 2019-05-05 15:23 | XR ---
EXAMINATION TYPE: XR chest 1V DATE OF EXAM: 05/05/2019 COMPARISON: Today HISTORY: Pneumothorax TECHNIQUE: Single frontal view of the chest is obtained. FINDINGS: There is a left-sided chest tube that appears in good position. Tubing over the left midlu ng. There is large left side pneumothorax. Trachea is midline. Right lung is clear. IMPRESSION: Persistent very large left pneumothorax. No evidence of tension.
--- NOTE | 2019-05-05 15:29 | XR ---
EXAMINATION TYPE: XR chest 1V portable DATE OF EXAM: 05/05/2019 COMPARISON: Today HISTORY: Chest tube placement. Pneumothorax. TECHNIQUE: Single frontal view of the chest is obtained. FINDINGS: There is large left side pneumothorax. Trachea is midline. There is a left-sided chest tub e that appears to be in good position. Right lung is clear. IMPRESSION: Persistent large left pneumothorax unchanged.
[2019-05-05] MEDS ORDERED: NALOXONE 0.4 MG/ML 1 ML VIAL IV PRN (15:44)
--- NOTE | 2019-05-05 15:53 | XR ---
EXAMINATION TYPE: XR chest 1V portable DATE OF EXAM: 05/05/2019 COMPARISON: 05/05/2019 HISTORY: Chest tube TECHNIQUE: Single frontal view of the chest is obtained. FINDINGS: There is an approximate 30% left pneumothorax. Right lung is clear. Trachea is midline. IMPRESSION: Significant improvement in the left side pneumothorax compared to last exam.
[2019-05-05] MEDS ORDERED: MORPHINE SULFATE 2 MG/ML SYRINGE IVP PRN (16:04)
[2019-05-05] MEDS: MORPHINE SULFATE 4 MG/ML SYRINGE IVP PRN ×3 (17:28→23:14)
--- NOTE | 2019-05-05 21:30 | P.HPIM ---
History of Present Illness H&P Date: 05/05/19 Chief Complaint: Left-sided chest pain Patient is a 24-year-old female with a known history of asthma came to ER with the complaints of left-sided sharp chest pain started around 1 AM last night. Patient developed cough along with an could not take deep breaths. Pain is ma inly left anterior chest and wraps around left back. Denied any complaints of cough or sputum production. No fever no chills. Patient was tachycardic on admission. Patient was previously was intubated and also on BiPAP due to Sever asthma exacerbation. Chest x-ray showed mildly left-sided tension pneumothorax. Patient is also with 13 weeks intrauterine . Laboratory data reviewed. Review of Systems Constitutional: Patient denies any fever or chills . No generalized weakness or weight loss. Abdomen: Patient denied nausea vomiting and diarrhea and abdominal pain. Cardiovascular: Patient does have left-sided sharp chest pain and short of breath no palpitations. Respiratory: patient denied any cough is from production. No shortness of breath Neurologic: Patient denied any numbness or tingling headache. Musculoskeletal: Patient denies any complaints of joint swelling or deformity. Skin: Negative Psychiatric: Negative Endocrine: No heat or cold intolerance. No recent weight gain. Genitourinary: No dysuria or hematuria. All other 14 point ROS negative except the above Past Medical History Past Medical History: Asthma Additional Past Medical History / Comment(s): Chronic asthma History of Any Multi-Drug Resistant Organisms: None Reported Past Surgical History: Section Additional Past Surgical History / Comment(s): [place] tooth extraction Past Anesthesia/Blood Transfusion Reactions: No Reported Reaction Additional Past Anesthesia/Blood Transfusion Reaction / Comment(s): no anesthesia or blood before Past Psychological History: No Psychological Hx Reported Additional Psychological History / Comment(s): Pt resides with her 2 children, ages 5yrs and 7 months. 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 Smoking Status: Never smoker Past Alcohol Use History: None Reported Past Drug Use History: None Reported - Past Family History Father Family Medical History: Asthma Mother Family Medical History: No Reported History Medications and Allergies Home Medications Medication Instructions Recorded Confirmed Type Albuterol Nebulized [Ventolin 2.5 mg INHALATION RT-QID PRN 05/02/17 05/05/19 History Nebulized] Montelukast [Singulair] 10 mg PO DAILY 06/15/18 05/05/19 History Beclomethasone Dipropionate [Qvar 2 puff INHALATION RT-BID 12/30/18 05/05/19 History 80 mcg] Acetaminophen Tab [Tylenol Tab] 1,000 mg PO Q6H PRN 05/05/19 05/05/19 History Albuterol Sulfate [Proair Hfa] 2 puff INHALATION RT-QID PRN 05/05/19 05/05/19 History Allergies Allergy/AdvReac Type Severity Reaction Status Date / Time amoxicillin [Amoxicillin] Allergy Anaphylaxis Verified 05/05/19 16:14 Physical Exam Vitals: Vital Signs Temp Pulse Pulse Resp BP BP Pulse Ox 05/05/19 19:30 98.5 F 98 18 128/69 96 05/05/19 17:30 97.0 F L 90 18 157/95 100 05/05/19 16:48 91 20 135/95 98 05/05/19 16:06 98.5 F 92 18 143/102 98 05/05/19 15:00 92 20 158/107 97 05/05/19 13:27 98.3 F 100 18 130/85 98 Intake and Output 05/05/19 05/05/19 05/05/19 06:59 14:59 22:59 Other: Voiding Method Toilet Weight 44.452 kg PHYSICAL EXAMINATION: Patient is lying in the bed comfortably, no acute distress, awake alert and oriented.. HEENT: Normocephalic. Neck is supple. Pupils reactive. Nostrils clear. Oral cavity is moist. Ears reveal no drainage. Neck reveals no JVD, carotid bruits, or thyromegaly. CHEST EXAMINATION: Trachea is central. Symmetrical expansion. Left basilar diminished air entry. Lung schulte clear to auscultation and percussion. Left anterior chest tender to palpation. Chest tube in place. CARDIAC: Normal S1, S2 with no gallops. No murmurs ABDOMEN: Soft. Bowel sounds normal. No organomegaly. No abdominal bruits. Extremities: reveal no edema. No clubbing or cyanosis Neurologically awake, alert, oriented x3 with well-coordinated movements. No focal deficits noted Skin: No rash or skin lesions. Psychiatric: Coperative. Nonsuicidal Musculoskeletal: No joint swelling or deformity. Normal range of motion. Results CBC & Chem 7: 05/05/19 13:55 05/05/19 13:55 Labs: Abnormal Lab Results - Last 24 Hours (Table) 05/05/19 Range/Units 13:55 BUN 6 L (7-17) mg/dL Thrombosis Risk Factor Assmnt - DVT/VTE Prophylaxis DVT/VTE Prophylaxis: Pharmacologic Prophylaxis ordered - Choose All That Apply Any of the Below Risk Factors Present?: No Assessment and Plan Assessment: Left-sided spontaneous pneumothorax. s/p Chest tube placement in the ER. Chronic asthma. Not in exacerbation. History of BiPAP use in the past 13 weeks intrauterine DVT prophylaxis with early ambulation Plan: Patient will continue with repeat chest x-rays. Pulmonary was consulted. Continue the pain management with morphine and Tylenol. Follow up closely and further recommendations based on the clinical course. Time with Patient: Greater than 30
[2019-05-05] MEDS: ACETAMINOPHEN TAB 500 MG TAB PO PRN (21:44)
[2019-05-06] MEDS: MORPHINE SULFATE 4 MG/ML SYRINGE IVP PRN ×5 (02:18→21:09)
[2019-05-06] MEDS: ACETAMINOPHEN TAB 500 MG TAB PO PRN ×3 (08:34→21:09)
[2019-05-06] MEDS: MONTELUKAST 10 MG TAB PO SCH (08:35)
[2019-05-06] MEDS: FLUTICASONE 110 MCG INHALER INHALATION SCH ×2 (11:02→20:12)
--- NOTE | 2019-05-06 15:19 | P.CNPUL ---
History of Present Illness Consult date: 05/06/19 Reason for consult: pneumothorax History of present illness: This is a 24-year-old -[place] female patient who is currently at her 13th week of gestation. The patient woke up yesterday and she felt an acute left-sided chest pain almost sounded like as if she was having a heart attack. She ended up coming into the hospital and she was found to have a large spontaneous left-sided pneumothorax. Immediately, a fluoroscopy vent was inserted into the left hemithorax with partial reexpansion of the left lung. I reviewed a series of chest x-rays and the last chest x-ray from yesterday showed that the patient still had a 20-25% pneumothorax on the left. As such, I connected the Thoravent to a Pleur-evac. The patient was also given a incentive spirometer. There is no active air leak at this point in time. She is still having some soreness along the left side of the chest. No hemodynamic instability. No tension. She has history of bronchial asthma. She has a metallic combination of Qvar and Singulair no outpatient basis and currently her asthma is currently inactive and stable. No smoking. No use of marijuana. No chest trauma. No pneumonias. No personal history or family history of pneumothorax. She was intubated for asthma many years back and cisplatin as well as been essentially inactive and stable. Her current is uncomplicated. Review of Systems Constitutional: Denies chills, Denies fever Eyes: denies as per HPI, denies blurred vision, denies bulging eye, denies decreased vision, denies diplopia, denies discharge, denies dry eye, denies irritation, denies itching, denies pain, denies photophobia, denies loss of per ipheral vision, denies loss of vision, denies tunnel vision/blind spots Ears: deny: decreased hearing, ear discharge, earache, tinnitus Ears, nose, mouth and throat: Denies headache, Denies sore throat Breasts: absent: as per HPI, change in shape, gynecomastia, masses, nipple discharge, pain, skin changes, swelling Cardiovascular: Reports chest pain, Reports dyspnea on exertion Respiratory: Reports dyspnea Gastrointestinal: Denies abdominal pain, Denies diarrhea, Denies nausea, Denies vomiting Genitourinary: Denies dysuria, Denies hematuria Musculoskeletal: Reports as per HPI Musculoskeletal: absent: ankle pain, ankle stiffness, ankle swelling, as per HPI, elbow pain, elbow stiffness, elbow swelling, foot pain, foot stiffness, foot swelling, hand pain, hand stiffness, hand swelling, hip pain, hip stiffness, hip swelling, knee pain, knee stiffness, knee swelling, shoulder pain, shoulder stiffness, shoulder swelling, wrist pain, wrist stiffness, wrist swelling Integumentary: Denies pruritus, Denies rash Neurological: Denies numbness, Denies weakness Endocrine: Denies fatigue, Denies weight change Hematologic/Lymphatic: Reports as per HPI Allergic/Immunologic: Reports as per HPI Past Medical History Past Medical History: Asthma Additional Past Medical History / Comment(s): Chronic asthma History of Any Multi-Drug Resistant Organisms: None Reported Past Surgical History: Section Additional Past Surgical History / Comment(s): [place] tooth extraction Past Anesthesia/Blood Transfusion Reactions: No Reported Reaction Additional Past Anesthesia/Blood Transfusion Reaction / Comment(s): no anesthesia or blood before Past Psychological History: No Psychological Hx Reported Additional Psychological History / Comment(s): Pt resides with her 2 children, ages 5yrs and 7 months. 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 Smoking Status: Never smoker Past Alcohol Use History: None Reported Past Drug Use History: None Reported - Past Family History Father Family Medical History: Asthma Mother Family Medical History: No Reported History Medications and Allergies Home Medications Medication Instructions Recorded Confirmed Type Albuterol Nebulized [Ventolin 2.5 mg INHALATION RT-QID PRN 05/02/17 05/05/19 History Nebulized] Montelukast [Singulair] 10 mg PO DAILY 06/15/18 05/05/19 History Beclomethasone Dipropionate [Qvar 2 puff INHALATION RT-BID 12/30/18 05/05/19 History 80 mcg] Acetaminophen Tab [Tylenol Tab] 1,000 mg PO Q6H PRN 05/05/19 05/05/19 History Albuterol Sulfate [Proair Hfa] 2 puff INHALATION RT-QID PRN 05/05/19 05/05/19 History Allergies Allergy/AdvReac Type Severity Reaction Status Date / Time amoxicillin [Amoxicillin] Allergy Anaphylaxis Verified 05/05/19 16:14 Physical Exam Vitals: Vital Signs Temp Pulse Pulse Resp BP BP Pulse Ox 05/06/19 11:41 98.1 F 85 16 152/84 96 05/06/19 08:00 98.2 F 90 18 142/90 98 05/06/19 03:00 98.5 F 84 16 143/96 98 05/05/19 23:30 98.1 F 99 18 158/100 95 05/05/19 19:30 98.5 F 98 18 128/69 96 05/05/19 17:30 97.0 F L 90 18 157/95 100 05/05/19 16:48 91 20 135/95 98 05/05/19 16:06 98.5 F 92 18 143/102 98 Intake and Output 05/06/19 05/06/19 05/06/19 06:59 14:59 22:59 Intake Total 240 Balance 240 Intake: Oral 240 Other: Voiding Method Toilet # Voids 1 1 Weight 44.452 kg The patient appeared well nourished and normally developed. Vital signs as documented. Head exam is unremarkable. No scleral icterus or corneal arcus noted. Neck is without jugular venous distension, thyromegaly, or carotid bruits. Carotid upstrokes are brisk bilaterally. Lungs are slightly diminished on the left compared to the right and the patient has a Thoravent over the left anterior chest area.. Cardiac exam reveals the PMI to be normally sized and situated. Rhythm is regular. First and second heart sounds normal. No murmurs, rubs or gallops. Abdominal exam reveals normal bowel sounds, no masses, no organomegaly and no aortic enlargement. Extremities are nonedematous and both femoral and pedal pulses are normal.Examination of the skin revealed no evidence of significant rashes, suspicious appearing nevi or other concerning lesions. Neurologically the patient is awake and alert and there is no focal neurological deficit. Results - Laboratory Findings CBC and BMP: 05/05/19 13:55 05/05/19 13:55 PT/INR, D-dimer PT 9.6 sec (9.0-12.0) 05/05/19 13:55 INR 0.9 (<1.2) 05/05/19 13:55 Abnormal lab findings: Abnormal Labs 05/05/19 13:55 BUN 6 L - Diagnostic Findings Chest x-ray: image reviewed Assessment and Plan Plan: 1 spontaneous left-sided pneumothorax post fluoroscopy vent insertion. There was incompletely especially the left lung post tube insertion and the patient was connected to a Pleur-evac. 2 acute chest pain secondary to above 3 acute shortness of breath secondary to above 4 chronic bronchial asthma currently inactive in stable 5 currently at her 13th week of gestation Plan Keep the Thoravent in place. Attach to a Pleur-evac with suction. Daily chest x-ray. Provide the patient incentive spirometer. Albuterol nebulized treatments as needed. Replace the Qvar with Flovent during her current hospital stay. Continue the Singulair. We'll continue to follow.
--- NOTE | 2019-05-06 23:41 | P.PN ---
Subjective Progress Note Date: 05/06/19 Principal diagnosis: Left acute spontaneous pneumothorax Patient is a 24-year-old female with a known history of asthma came to ER with the complaints of left-sided sharp chest pain started around 1 AM last night. Patient developed cough along with an could not take deep breaths. Pain is mainly left anterior chest and wraps around left back. Denied any complaints of cough or sputum production. No fever no chills. Patient was tachycardic on admission. Patient was previously was intubated and also on BiPAP due to Sever asthma exacerbation. Chest x-ray showed mildly left-sided tension pneumothorax. Patient is also with 13 weeks intrauterine . Laboratory data reviewed. 05 06 2019 Patient says that her left-sided chest pain is better. Continued on thoravent which has been attached to action. Pulmonary is on board. Follow-up x-ray tomorrow. Continue with incentive spirometry and breathing treatments as needed. Patient has been afebrile. No nausea vomiting or abdominal pain. Saturating well on room air. Current medications reviewed. Objective - Vital Signs Vital signs: Vital Signs Temp 98.1 F 05/06/19 11:41 Pulse 85 05/06/19 11:41 Resp 16 05/06/19 11:41 BP 152/84 05/06/19 11:41 Pulse Ox 96 05/06/19 11:41 Intake & Output 05/05/19 05/06/19 05/06/19 18:59 06:59 18:59 Intake Total 120 Balance 120 Weight 44.452 kg Intake: Oral 120 Other: Voiding Method Toilet Toilet # Voids 1 2 - Exam PHYSICAL EXAMINATION: Patient is lying in the bed comfortably, no acute distress, awake alert and oriented.. HEENT: Normocephalic. Neck is supple. Pupils reactive. Nostrils clear. Oral cav ity is moist. Ears reveal no drainage. Neck reveals no JVD, carotid bruits, or thyromegaly. CHEST EXAMINATION: Trachea is central. Symmetrical expansion. Left basilar diminished air entry. Lung schulte clear to auscultation and percussion. Left anterior chest tender to palpation. Chest tube in place. CARDIAC: Normal S1, S2 with no gallops. No murmurs ABDOMEN: Soft. Bowel sounds normal. No organomegaly. No abdominal bruits. Extremities: reveal no edema. No clubbing or cyanosis Neurologically awake, alert, oriented x3 with well-coordinated movements. No focal deficits noted Skin: No rash or skin lesions. Psychiatric: Coperative. Nonsuicidal Musculoskeletal: No joint swelling or deformity. Normal range of motion. - Labs CBC & Chem 7: 05/05/19 13:55 05/05/19 13:55 Labs: Abnormal Lab Results - Last 24 Hours (Table) 05/05/19 Range/Units 13:55 BUN 6 L (7-17) mg/dL Assessment and Plan Assessment: Left-sided spontaneous pneumothorax. Continue with thoravac with suction. Chronic asthma. Not in exacerbation. History of BiPAP use in the past 13 weeks intrauterine DVT prophylaxis with early ambulation Plan: Patient will continue with repeat chest x-rays. Pulmonary was consulted. Continue the pain management with morphine and Tylenol. Follow up closely and further recommendations based on the clinical course. Time with Patient: Greater than 30
[2019-05-07] MEDS: MORPHINE SULFATE 4 MG/ML SYRINGE IVP PRN ×3 (01:40→09:14)
--- NOTE | 2019-05-07 07:24 | XR ---
EXAMINATION TYPE: XR chest 1V DATE OF EXAM: 05/07/2019 COMPARISON: 05/05/2019 HISTORY: History of pneumothorax. Shortness of breath. TECHNIQUE: Single frontal view of the chest is obtained. FINDINGS: Left-sided thoracostomy tube has been placed over the left hemithorax. The previously seen left-sided pneumothorax has greatly improved, now trace. Scattered areas of linear subsegmental atel ectasis are seen. Osseous structures appear grossly intact. Cardia mediastinal silhouette is stable. IMPRESSION: Nearly resolved left pneumothorax, now trace. Scattered areas of subsegmental atelectasi s in both lungs.
[2019-05-07] MEDS: FLUTICASONE 110 MCG INHALER INHALATION SCH ×2 (08:07→19:20)
[2019-05-07] MEDS: ALBUTEROL NEBULIZED 2.5 MG/3 ML INHALATION PRN ×3 (08:07→19:20)
[2019-05-07] MEDS: MONTELUKAST 10 MG TAB PO SCH (08:18)
--- NOTE | 2019-05-07 11:00 | P.PN ---
Subjective Progress Note Date: 05/07/19 Principal diagnosis: Left-sided spontaneous pneumothorax This is a 24-year-old -Polish female patient who is currently at her 13th week of gestation. The patient woke up yesterday and she felt an acute left-sided chest pain almost sounded like as if she was having a heart attack. She ended up coming into the hospital and she was found to have a large spontaneous left-sided pneumothorax. Immediately, a fluoroscopy vent was inserted into the left hemithorax with partial reexpansion of the left lung. I reviewed a series of chest x-rays and the last chest x-ray from yesterday showed that the patient still had a 20-25% pneumothorax on the left. As such, I connected the Thoravent to a Pleur-evac. The patient was also given a incentive spirometer. There is no active air leak at this point in time. She is still having some soreness along the left side of the chest. No hemodynamic instability. No tension. She has history of bronchial asthma. She has a metallic combination of Qvar and Singulair no outpatient basis and currently her asthma is currently inactive and stable. No smoking. No use of marijuana. No chest trauma. No pneumonias. No personal history or family history of pneumothorax. She was intubated for asthma many years back and cisplatin as well as been essentially inactive and stable. Her current is uncomplicated. On 05/07/2019 patient seen in follow-up on the selective care unit, she is awake and alert, in no acute distress, she is having slightly more discomfort on the left side of the chest today, but breath sounds are equal, good air entry noted bilaterally, today's chest x-ray has been reviewed showing near complete resolution of the left-sided pneumothorax, left-sided Thoravent is in place, connected to Pleur-evac and wall suction, and there is no air leak on today's exam. Room air pulse ox is 97%, vital signs are stable. Objective - Vital Signs Vital signs: Vital Signs Temp 98.3 F 05/07/19 08:00 Pulse 84 05/07/19 08:17 Resp 18 05/07/19 08:00 BP 124/80 05/07/19 08:00 Pulse Ox 97 05/07/19 08:00 Intake & Output 05/06/19 05/07/19 05/07/19 18:59 06:59 18:59 Intake Total 330 Balance 330 Weight 44.452 kg 42.7 kg Intake: Oral 330 Other: Voiding Method Toilet Toilet # Voids 0 - Exam GENERAL EXAM: Alert, very pleasant, 24-year-old -Polish female comfortable in no apparent distress. HEAD: Normocephalic/atraumatic. EYES: Normal reaction of pupils, equal size. Conjunctiva pink, sclera white. NOSE: Clear with pink turbinates. THROAT: No erythema or exudates. NECK: No masses, no JVD, no thyroid enlargement, no adenopathy. CHEST: No chest wall deformity. Symmetrical expansion. Left-sided Thoravent is in place, connected to Pleur-evac and wall suction, no evidence of air leak LUNGS: Equal air entry with no crackles, wheeze, rhonchi or dullness. CVS: Regular rate and rhythm, normal S1 and S2, no gallops, no murmurs, no rubs ABDOMEN: Soft, nontender. No hepatosplenomegaly, normal bowel sounds, no guarding or rigidity. EXTREMITIES: No clubbing, no edema, no cyanosis, 2+ pulses and upper and lower extremities. MUSCULOSKELETAL: Muscle strength and tone normal. SPINE: No scoliosis or deformity SKIN: No rashes CENTRAL NERVOUS SYSTEM: Alert and oriented -3. No focal deficits, tone is normal in all 4 extremities. PSYCHIATRIC: Alert and oriented -3. Appropriate affect. Intact judgment and insight. - Labs CBC & Chem 7: 05/05/19 13:55 05/05/19 13:55 Assessment and Plan Plan: Assessment: 1 spontaneous left-sided pneumothorax post fluoroscopy vent insertion. There was incompletely especially the left lung post tube insertion and the patient was connected to a Pleur-evac. 2 acute chest pain secondary to above 3 acute shortness of breath secondary to above 4 chronic bronchial asthma currently inactive in stable 5 currently at her 13th week of gestation Plan: Continue encouraging deep breathing and coughing, today's chest x-ray shows near complete resolution of the left-sided pneumothorax, and reexpansion of the left lung. May consider capping the Thoravent this afternoon, and repeating a chest x-ray. Patient is stable, no acute issues overnight. We'll continue to follow I performed a history & physical examination of the patient and discussed their management with my nurse practitioner, Justine Bowman. I reviewed the nurse practitioner's note and agree with the documented findings and plan of care. Lung sounds are positive for clear breath sounds. The findings and the imp ression was discussed with the patient. I attest to the documentation by the nurse practitioner. Time with Patient: Less than 30
[2019-05-07] MEDS: HYDROcodone/APAP 5-325MG 1 EACH TAB PO PRN ×2 (13:00→20:44)
--- NOTE | 2019-05-07 14:04 | US ---
EXAMINATION TYPE: US OB limited DATE OF EXAM: 05/07/2019 COMPARISON: NONE CLINICAL HISTORY: 13 weeks gestation. No pain or spotting. FHT's only per nurse. EXAM PERFORMED: Transabdominal (TA) GESTATIONAL AGE / DATING Physician Established: (13 weeks/6 days) EDC: 11/06/2019 No growth performed on today?s study per ordering physician SURVEY HEART RATE: 150 bpm RHYTHM: Normal IMPRESSION: Single live intrauterine with a heart rate of 150 bpm. heart tones only per order.
--- NOTE | 2019-05-07 15:18 | P.PN ---
Subjective Progress Note Date: 05/07/19 Principal diagnosis: Left acute spontaneous pneumothorax Patient is a 24-year-old female with a known history of asthma came to ER with the complaints of left-sided sharp chest pain started around 1 AM last night. Patient developed cough along with an could not take deep breaths. Pain is mainly left anterior chest and wraps around left back. Denied any complaints of cough or sputum production. No fever no chills. Patient was tachycardic on admission. Patient was previously was intubated and also on BiPAP due to Sever asthma exacerbation. Chest x-ray showed mildly left-sided tension pneumothorax. Patient is also with 13 weeks intrauterine . Laboratory data reviewed. 05 06 2019 Patient says that her left-sided chest pain is better. Continued on thoravent w hich has been attached to action. Pulmonary is on board. Follow-up x-ray tomorrow. Continue with incentive spirometry and breathing treatments as needed. Patient has been afebrile. No nausea vomiting or abdominal pain. Saturating well on room air. Current medications reviewed. 05/07/2019 Patient is sitting up in bed in no acute distress with no acute overnight issues. Patient is currently maintained on a thoravent of the left side and repeat chest x-ray this morning shows near resolution of the left pneumothorax with a trace and some areas of subsegmental atelectasis in both lungs. Pu lmonary is following. Patient continues to have some discomfort noted on the chest wall but states that her breathing is much improved and is currently maintaining oxygen saturations on room air. Patient expressed her concern about her and is concerned due to her condition and would like an ultrasound. An ultrasound was ordered. Patient instructed to follow-up with TECHNOLOGY DIRECTOR upon discharge and as scheduled on May 30. Currently patient denies any chest pain, shortness of breath, or palpitations. Patient is afebrile. Patient denies any nausea or vomiting and is tolerating diet. Patient denies any abdominal cramping or vaginal bleeding at this time. Will continue to monitor closely. Objective - Vital Signs Vital signs: Vital Signs Temp 98.7 F 05/07/19 12:00 Pulse 96 05/07/19 12:00 Resp 18 05/07/19 12:00 BP 126/78 05/07/19 12:00 Pulse Ox 98 05/07/19 12:00 Intake & Output 05/06/19 05/07/19 05/07/19 18:59 06:59 18:59 Intake Total 330 Balance 330 Weight 44.452 kg 42.7 kg Intake: Oral 330 Other: Voiding Method Toilet Toilet # Voids 0 - Exam Patient is sitting up in the bed comfortably, no acute distress, awake alert and oriented. Vital signs are stable. HEENT: Normocephalic. Neck is supple. Pupils reactive. Nostrils clear. Oral cavity is moist. Ears reveal no drainage. Neck reveals no JVD, carotid bruits, or thyromegaly. CHEST EXAMINATION: Trachea is central. Symmetrical expansion. Left basilar diminished air entry. Lung schulte clear to auscultation and percussion. Left anterior chest tender to palpation. Chest tube in place. CARDIAC: Normal S1, S2 with no gallops. No murmurs ABDOMEN: Soft. Bowel sounds normal. No organomegaly. No abdominal bruits. Extremities: reveal no edema. No clubbing or cyanosis Neurologically awake, alert, oriented x3 with well-coordinated movements. No focal deficits noted Skin: No rash or skin lesions. Psychiatric: Cooperative. Non-suicidal Musculoskeletal: No joint swelling or deformity. Normal range of motion. - Labs CBC & Chem 7: 05/05/19 13:55 05/05/19 13:55 Assessment and Plan Assessment: -Left-sided spontaneous pneumothorax. Continue with thoravac with suction. Pulmonary is following -Chronic asthma. Not in exacerbation. History of BiPAP use in the past -13 weeks intrauterine -DVT prophylaxis with early ambulation Plan: Patient will continue with repeat chest x-rays. Today's repeat chest x-ray shows nearly resolved left pneumothorax, now trace, and scattered areas of subsegmental atelectasis in bilateral lung schulte. Pulmonary is following. Patient underwent an abdominal ultrasound to monitor for heart tones as patient is 13 weeks and was quite concerned about her given her current situation. Ultrasound showed a single live intrauterine with heart rate of 150 bpm. Patient will continue to follow-up with her TECHNOLOGY DIRECTOR out of [facility]. Her next OB appointment is May 30. Continue the pain management with morphine and Tylenol. Follow up closely and further recommendations based on the clinical course.
--- NOTE | 2019-05-07 15:21 | P.GSCN ---
History of Present Illness Consult date: 05/07/19 Reason for Consult: Spontaneous left-sided pneumothorax, status post thoravent placement Requesting physician: Eliceo Nunez History of present illness: This is a 24-year-old active female who follows on an outpatient basis with Dr. Montero. Her only previous medical history includes asthma. She presented to [facility] emergency room with complaints of sharp left- sided chest pain, nonproductive cough, and difficulty in breathing including being unable to take deep breaths. Chest x-ray was completed demonstrating left-sided tension pneumothorax. Thoravent was placed by the emergency room physicians with minimal improvement. She was admitted for further monitoring with consultation placed to pulmonology. Yesterday her thoravent was connected to continuous wall suction, this morning's chest x-ray demonstrates almost complete lung expansion with very minimal residual left-sided pneumothorax. Upon further questioning, this patient thinks that she has had a pneumothorax on the left side before, however no chest x-ray or CAT scan in this system demonstrates pneumothorax. In fact, she has been hospitalized several times for acute asthma exacerbations and has had to be placed on BiPAP before. Dr. Marques from cardiothoracic surgery was consulted for management of the thoravent. Review of Systems Review of systems was completed and was negative except as noted. - Cardiovascular Reports as per HPI, Reports chest pain - Respiratory Reports as per HPI, Reports dyspnea Past Medical History Past Medical History: Asthma Additional Past Medical History / Comment(s): Chronic asthma History of Any Multi-Drug Resistant Organisms: None Reported Past Surgical History: Section Additional Past Surgical History / Comment(s): Wilmer tooth extraction Past Anesthesia/Blood Transfusion Reactions: No Reported Reaction Additional Past Anesthesia/Blood Transfusion Reaction / Comm: no anesthesia or blood before Past Psychological History: No Psychological Hx Reported Additional Psychological History / Comment(s): Pt resides with her 2 children, ages 5yrs and 7 months. She is a [employer] and works at [employer]. Smoking Status: Never smoker Past Alcohol Use History: None Reported Past Drug Use History: None Reported - Past Family History Father Family Medical History: Asthma Mother Family Medical History: No Reported History Medications and Allergies Home Medications Medication Instructions Recorded Confirmed Type Albuterol Nebulized [Ventolin 2.5 mg INHALATION RT-QID PRN 05/02/17 05/05/19 History Nebulized] Montelukast [Singulair] 10 mg PO DAILY 06/15/18 05/05/19 History Beclomethasone Dipropionate [Qvar 2 puff INHALATION RT-BID 12/30/18 05/05/19 History 80 mcg] Acetaminophen Tab [Tylenol Tab] 1,000 mg PO Q6H PRN 05/05/19 05/05/19 History Albuterol Sulfate [Proair Hfa] 2 puff INHALATION RT-QID PRN 05/05/19 05/05/19 History Allergies Allergy/AdvReac Type Severity Reaction Status Date / Time amoxicillin [Amoxicillin] Allergy Anaphylaxis Verified 05/05/19 16:14 Surgical - Exam Vital Signs Temp Pulse Resp BP Pulse Ox 98.3 F 100 18 130/85 98 05/05/19 13:27 05/05/19 13:27 05/05/19 13:27 05/05/19 13:27 05/05/19 13:27 - General Mild pain with palpation to her left chest well developed, well nourished, no distress - Eyes PERRL, normal ocular movement - ENT no hearing loss - Neck no masses, no bruits, trachea midline - Respiratory Lungs sounds clear bilaterally but slightly diminished on the left side. Respirations even, nonlabored. Currently on room air with oxygen saturation 98%. Weak cough. Left sided thoravent present, connected to continuous wall suction, no air leak present. - Cardiovascular S1, S2 present. Regular rate and rhythm, sinus rhythm on telemetry. Palpable peripheral pulses bilaterally. No edema present. No calf pain or tenderness noted. - Abdomen Abdomen: soft, non tender, bowel sounds - Genitourinary Deferred - Rectum Deferred - Integumentary no rash, no growths - Neurologic normal coordination, normal sensation - Musculoskeletal normal gait, normal posture - Psychiatric oriented to time, oriented to person, oriented to place, speech is normal, memory intact Results - Labs 05/05/19 13:55 05/05/19 13:55 - Imaging Chest x-ray: report reviewed, image reviewed Assessment and Plan Assessment: 1. Spontaneous left-sided pneumothorax, status post thoravent placement by the emergency room physicians 2. Chronic persistent asthma 3. , 13 weeks gestation Plan: The patient was seen and examined at the bedside with Dr. Marques. Chart/diagnostics were reviewed. Patient is currently in no distress. There is no air leak from her thoravent. Atrium was placed to waterseal. Repeat chest x-ray in the morning. The possibility of future surgery if her lung does not seal was discussed in detail with the patient and family member at the bedside, all questions were answered. No surgical intervention at this time, however we will offer surgery should the patient experience another spontaneous pneumothorax on the left side. Continue incentive spirometry use. Bronchodilators, steroids per pulmonology. Pain control per primary care service. More recommendations to follow. Thank you Dr. Nunez for this consult. We look forward to working with you in the care of your patient. Time with Patient: Greater than 30
[2019-05-07] MEDS: ACETAMINOPHEN TAB 500 MG TAB PO PRN ×2 (17:08→23:11)
[2019-05-08] MEDS: HYDROcodone/APAP 5-325MG 1 EACH TAB PO PRN ×4 (02:47→22:58)
[2019-05-08] MEDS: ACETAMINOPHEN TAB 500 MG TAB PO PRN ×3 (06:38→20:33)
--- NOTE | 2019-05-08 07:51 | XR ---
EXAMINATION TYPE: XR chest 2V DATE OF EXAM: 05/08/2019 COMPARISON: 05/07/2019 TECHNIQUE: PA and lateral views submitted. HISTORY: Pneumothorax FINDINGS: Left-sided chest tube seen and there is interval enlargement of the left-sided pneumothorax which now measures approximately 30%. Report called to the patient's nurse. Right lung is clear. No pleural ef fusion. No mediastinal deviation. Heart size normal. IMPRESSION: 1. Interval enlargement of sizable left pneumothorax now measuring approximately 30%.
--- NOTE | 2019-05-08 08:17 | P.PN ---
Subjective Progress Note Date: 05/08/19 Principal diagnosis: Spontaneous left-sided pneumothorax, current at 13 weeks gestation. History of chronic persistent asthma. The patient is currently laying in bed in the cardiac stepdown unit in no acute distress. She did state she had an episode of emesis last night, felt sharp pain in her chest and had some difficulty breathing. This morning's x-ray demonstrates left-sided pneumothorax approximately 30% per radiology read. There is no air leak in her thoravent. No other new concerns. Objective - Vital Signs Vital signs: Vital Signs Temp 98.5 F 05/08/19 04:00 Pulse 76 05/08/19 04:00 Resp 18 05/08/19 04:00 BP 132/81 05/08/19 04:00 Pulse Ox 98 05/08/19 04:00 Intake & Output 05/07/19 05/08/19 05/08/19 18:59 06:59 18:59 Intake Total 1160 237 Output Total 15 Balance 1160 222 Weight 42.3 kg Intake: Oral 1160 237 Output: Chest Tube Drainage 15 Thora-Vent Left Upper 15 Anterior Chest Other: Voiding Method Toilet Toilet # Voids 2 1 - Constitutional General appearance: Present: cooperative, no acute distress, thin - Respiratory Details: Lungs sounds clear bilaterally but slightly diminished on the left side apically. Respirations even, nonlabored. Currently on room air with oxygen saturation 98%. Weak cough. Left sided thoravent present, connected to continuous wall suction, no air leak present. - Cardiovascular Details: S1, S2 present. Regular rate and rhythm, sinus rhythm on telemetry. Palpable peripheral pulses bilaterally. No edema present. No calf pain or tenderness noted. - Gastrointestinal Gastrointestinal Comment(s): Abdomen soft, nontender, nondistended. Active bowel sounds present 4 quadr ants. Tolerating diet. - Genitourinary Genitourinary Comment(s): Continues to void - Integumentary Integumentary Comment(s): Skin is warm and dry without evidence of good perfusion - Neurologic Neurologic: Present: CNII-XII intact - Musculoskeletal Musculoskeletal: Present: gait normal, strength equal bilaterally - Psychiatric Psychiatric: Present: A&O x's 3, appropriate affect, intact judgment & insight - Allied health notes Allied health notes reviewed: nursing - Labs CBC & Chem 7: 05/05/19 13:55 05/05/19 13:55 - Imaging and Cardiology Chest x-ray: report reviewed, image reviewed Assessment and Plan Assessment: 1. Spontaneous left-sided pneumothorax, status post thoravent placement by the emergency room physicians 2. Chronic persistent asthma 3. , 13 weeks gestation Plan: 1. Continue thoravent to waterseal. Monitor for any respiratory distress, if significant distress occurs May place atrium back to suction 2. Encourage incentive spirometry use 10 times every hour while awake 3. Will monitor daily x-rays 4. Bronchodilators per pulmonology 5. Increase activity, ambulate as tolerated 6. Pain control per primary care service 7. More recommendations to follow Time with Patient: Greater than 30
[2019-05-08] MEDS: MONTELUKAST 10 MG TAB PO SCH (09:00)
[2019-05-08] MEDS: FLUTICASONE 110 MCG INHALER INHALATION SCH ×2 (09:21→20:41)
--- NOTE | 2019-05-08 13:13 | CDI ---
Documentation Clarification Form Date: 05/08/2019 CDS: Candelaria Lewis, CCS, CCDS Admit Date: 05/05/2019 Patient Name: Nicole Vasquez Discharge Date: ATTENTION: The Clinical Documentation Specialists (CDI) and [facility] Coding Staff appreciate your assistance in clarifying documentation. Please respond to the clarification below the line at the bottom and electronically sign. The CDI & [facility] Coding staff will review the response and follow-up if needed. Please note: Queries are made part of the Legal Health Record. If you have any questions, please contact the author of this message via ITS. Dear Dr. Nunez: Per the patient's history: asthma with previous exacerbations. Per the cardiothoracic consult: Chronic persistent asthma is documented without severity. History/risk factors: Asthma nos, Previous section. Clinical Indicators: Patient presented with acute chest pain, diagnosed with large left side spontaneous tension pneumothorax, also 13 weeks . Radiology 05/05 CXR: Mild left side pneumothorax. Subsequent CXRs: Large left side pneumothorax. Procedure: Chest tube inserted in the ED Vital Signs: Stable, PO 98 RA Treatment: Chest tube, left side, IV Ms, po Tylenol, INH Albuterol, po Singulair In your professional opinion, can you please further specify the following, if known? Severity o Mild persistent o Moderate persistent o Severe persistent o Other, please specify ____ o Unable to determine Form or Type o Cough variant o Childhood o Exercise induced bronchospasm o Extrinsic allergic o Idiosyncratic o Intrinsic nonallergic o Late-onset o Mixed o Other, please specify____ o Unable to determine (Last Revision: September 2017) MTDD
--- NOTE | 2019-05-08 13:26 | P.PN ---
Progress Note - Text Progress Note Date: 05/08/19 Patient has chronic severe persistent asthma. This is for documentation clarification.
--- NOTE | 2019-05-08 13:28 | P.PN ---
Subjective Progress Note Date: 05/08/19 Principal diagnosis: Left-sided spontaneous pneumothorax This is a 24-year-old -[place] female patient who is currently at her 13th week of gestation. The patient woke up yesterday and she felt an acute left-sided chest pain almost sounded like as if she was having a heart attack. She ended up coming into the hospital and she was found to have a large spontaneous left-sided pneumothorax. Immediately, a fluoroscopy vent was inserted into the left hemithorax with partial reexpansion of the left lung. I reviewed a series of chest x-rays and the last chest x-ray from yesterday showed that the patient still had a 20-25% pneumothorax on the left. As such, I connected the Thoravent to a Pleur-evac. The patient was also given a incentive spirometer. There is no active air leak at this point in time. She is still having some soreness along the left side of the chest. No hemodynamic instability. No tension. She has history of bronchial asthma. She has a metallic combination of Qvar and Singulair no outpatient basis and currently her asthma is currently inactive and stable. No smoking. No use of marijuana. No chest trauma. No pneumonias. No personal history or family history of pneumothorax. She was intubated for asthma many years back and cisplatin as well as been essentially inactive and stable. Her current is uncomplicated. On 05/07/2019 patient seen in follow-up on the selective care unit, she is awake and alert, in no acute distress, she is having slightly more discomfort on the left side of the chest today, but breath sounds are equal, good air entry noted bilaterally, today's chest x-ray has been reviewed showing near complete resolution of the left-sided pneumothorax, left-sided Thoravent is in place, connected to Pleur-evac and wall suction, and there is no air leak on today's exam. Room air pulse ox is 97%, vital signs are stable. On 05/08/2019 patient seen in follow-up on selective care unit, her Thoravent chest tube was placed to waterseal yesterday, and overnight patient was 7 increased discomfort in her left chest similar to the chest pain that brought her to the hospital. This morning's chest x-ray showed interval enlargement of sizable left pneumothorax measuring approximately 30%. This morning she seen in follow-up, she is awake and alert, appears to be in no acute distress, she is w orking on incentive spirometer, achieving 9649-0741 mL on the today, lung sounds reveal very diminished to no breath sounds over left lung to the mid-level area, and the chest tube was placed back to suction. Otherwise vital signs are stable, hemodynamically patient is stable. She has tolerated ambulation. She is requesting pain medication on the regular basis related to her left chest discomfort, on combination of oral [place] and Tylenol. Objective - Vital Signs Vital signs: Vital Signs Temp 98.7 F 05/08/19 08:00 Pulse 76 05/08/19 04:00 Resp 14 05/08/19 08:00 BP 122/81 05/08/19 08:00 Pulse Ox 97 05/08/19 08:00 Intake & Output 05/07/19 05/08/19 05/08/19 18:59 06:59 18:59 Intake Total 1160 237 480 Output Total 15 Balance 1160 222 480 Weight 42.3 kg Intake: Oral 1160 237 480 Output: Chest Tube Drainage 15 Thora-Vent Left Upper 15 Anterior Chest Other: Voiding Method Toilet Toilet # Voids 2 1 - Exam GENERAL EXAM: Alert, very pleasant, 24-year-old -[place] female comfortable in no apparent distress. HEAD: Normocephalic/atraumatic. EYES: Normal reaction of pupils, equal size. Conjunctiva pink, sclera white. NOSE: Clear with pink turbinates. THROAT: No erythema or exudates. NECK: No masses, no JVD, no thyroid enlargement, no adenopathy. CHEST: No chest wall deformity. Symmetrical expansion. Left-sided Thoravent is in place, connected to Pleur-evac to waterseal, no evidence of air leak LUNGS: Diminished to no breath sounds over left upper and mid lung, good air entry on the right with no crackles, wheeze, rhonchi or dullness. CVS: Regular rate and rhythm, normal S1 and S2, no gallops, no murmurs, no rubs ABDOMEN: Soft, nontender. No hepatosplenomegaly, normal bowel sounds, no guarding or rigidity. EXTREMITIES: No clubbing, no edema, no cyanosis, 2+ pulses and upper and lower extremities. MUSCULOSKELETAL: Muscle strength and tone normal. SPINE: No scoliosis or deformity SKIN: No rashes CENTRAL NERVOUS SYSTEM: Alert and oriented -3. No focal deficits, tone is n ormal in all 4 extremities. PSYCHIATRIC: Alert and oriented -3. Appropriate affect. Intact judgment and insight. - Labs CBC & Chem 7: 05/05/19 13:55 05/05/19 13:55 Assessment and Plan Plan: Assessment: 1 spontaneous left-sided pneumothorax post fluoroscopy vent insertion. There was incompletely especially the left lung post tube insertion and the patient was connected to a Pleur-evac. 2 acute chest pain secondary to above 3 acute shortness of breath secondary to above 4 chronic bronchial asthma currently inactive in stable 5 currently at her 13th week of gestation Plan: Today's chest x-ray has been reviewed, showing increased left pneumothorax estimated at 30%, on physical exam there is diminished to no breath sounds over left upper and left mid lung, and left chest tube has been placed back to suction. We'll repeat chest x-ray tomorrow, hemodynamically she remains stable, continue encouraging deep breathing and coughing, CT surgery is following I performed a history & physical examination of the patient and discussed their management with my nurse practitioner, Justine Bowman. I reviewed the nurse practitioner's note and agree with the documented findings and plan of care. Lung sounds are positive for clear breath sounds. The findings and the impression was discussed with the patient. I attest to the documentation by the nurse practitioner. Time with Patient: Less than 30
--- NOTE | 2019-05-08 13:32 | P.PN ---
Subjective Progress Note Date: 05/08/19 Principal diagnosis: Left acute spontaneous pneumothorax Patient is a 24-year-old female with a known history of asthma came to ER with the complaints of left-sided sharp chest pain started around 1 AM last night. Patient developed cough along with an could not take deep breaths. Pain is mainly left anterior chest and wraps around left back. Denied any complaints of cough or sputum production. No fever no chills. Patient was tachycardic on admission. Patient was previously was intubated and also on BiPAP due to Sever asthma exacerbation. Chest x-ray showed mildly left-sided tension pneumothorax. Patient is also with 13 weeks intrauterine . Laboratory data reviewed. 05 06 2019 Patient says that her left-sided chest pain is better. Continued on thoravent w leticia has been attached to action. Pulmonary is on board. Follow-up x-ray tomorrow. Continue with incentive spirometry and breathing treatments as needed. Patient has been afebrile. No nausea vomiting or abdominal pain. Saturating well on room air. Current medications reviewed. 05/07/2019 Patient is sitting up in bed in no acute distress with no acute overnight issues. Patient is currently maintained on a thoravent of the left side and repeat chest x-ray this morning shows near resolution of the left pneumothorax with a trace and some areas of subsegmental atelectasis in both lungs. Pu lmonary is following. Patient continues to have some discomfort noted on the chest wall but states that her breathing is much improved and is currently maintaining oxygen saturations on room air. Patient expressed her concern about her and is concerned due to her condition and would like an ultrasound. An ultrasound was ordered. Patient instructed to follow-up with [facility] upon discharge and as scheduled on May 30. Currently patient denies any chest pain, shortness of breath, or palpitations. Patient is afebrile. Patient denies any nausea or vomiting and is tolerating diet. Patient denies any abdominal cramping or vaginal bleeding at this time. Will continue to monitor closely. 05/08/2019 patient is lying in bed in no acute distress. Patient states that her breathing has improved but still feels that she is unable to take a complete breath in and states that it is most likely due to the pain on the chest where the thoravent is. Patient was switched to oral pain medication [place] and states that it is helping but she is only receiving that every 6 hours. Patient has been using Tylenol in between for breakthrough which is helping. Patient also has heat packs applied around the area of the chest tube to help with the discomfort. Currently patient denies any chest pain, shortness of breath, or palpitations. Patient is afebrile. Patient denies any nausea or vomiting and is tolerating diet. Patient states that she had an episode of vomiting last night and had a brief moment of shortness of breath during that time. Patient's repeat chest x- ray today showsand interval enlargement of the left pneumothorax now measuring approximate 30%. Pulmonary and cardiothoracic surgery are following closely. Will continue with daily chest x-rays to monitor for resolution of the pneumothorax. Will continue to monitor closely. Objective - Vital Signs Vital signs: Vital Signs Temp 98.7 F 05/08/19 08:00 Pulse 76 05/08/19 04:00 Resp 14 05/08/19 08:00 BP 122/81 05/08/19 08:00 Pulse Ox 97 05/08/19 08:00 Intake & Output 05/07/19 05/08/19 05/08/19 18:59 06:59 18:59 Intake Total 1160 237 480 Output Total 15 Balance 1160 222 480 Weight 42.3 kg Intake: Oral 1160 237 480 Output: Chest Tube Drainage 15 Thora-Vent Left Upper 15 Anterior Chest Other: Voiding Method Toilet Toilet # Voids 2 1 - Exam Patient is sitting up in the bed comfortably, no acute distress, awake alert and oriented. Vital signs are stable. HEENT: Normocephalic. Neck is supple. Pupils reactive. Nostrils clear. Oral cavity is moist. Ears reveal no drainage. Neck reveals no JVD, carotid bruits, or thyromegaly. CHEST EXAMINATION: Trachea is central. Symmetrical expansion. Left basilar diminished air entry. Lung schulte clear to auscultation and percussion. Left anterior chest tender to palpation. Chest tube in place. CARDIAC: Normal S1, S2 with no gallops. No murmurs ABDOMEN: Soft. Bowel sounds normal. No organomegaly. No abdominal bruits. Extremities: reveal no edema. No clubbing or cyanosis Neurologically awake, alert, oriented x3 with well-coordinated movements. No focal deficits noted Skin: No rash or skin lesions. Psychiatric: Cooperative. Non-suicidal Musculoskeletal: No joint swelling or deformity. Normal range of motion. - Labs CBC & Chem 7: 05/05/19 13:55 05/05/19 13:55 Assessment and Plan Assessment: -Left-sided spontaneous pneumothorax. Continue with thoravac with waterseal. Pulmonary is following -Chronic asthma. Not in exacerbation. History of BiPAP use in the past -13 weeks intrauterine -DVT prophylaxis with early ambulation Plan: Patient will continue with repeat chest x-rays. Today's repeat chest x-ray shows and interval enlargement of sizable left pneumothorax now measuring approximately 30%. Thoravent in place and connected to water seal. Cardiothoracic surgery and Pulmonary are following. Continue the pain management with [place] and Tylenol. Follow up closely and further recommendations based on the clinical course.
[2019-05-09] MEDS: HYDROcodone/APAP 5-325MG 1 EACH TAB PO PRN ×3 (04:17→18:33)
[2019-05-09] MEDS: ACETAMINOPHEN TAB 500 MG TAB PO PRN ×2 (06:37→13:32)
--- NOTE | 2019-05-09 07:16 | XR ---
EXAMINATION TYPE: XR chest 1V portable DATE OF EXAM: 05/09/2019 COMPARISON: 05/08/2019 HISTORY: Pneumothorax. Follow-up exam. TECHNIQUE: Single frontal view of the chest is obtained. FINDINGS: There is improved left pneumothorax with maximal lateral apical pleural separation of 1.3 cm as opposed to the prior of 2.8 cm and apical pleural separation of 1.7 cm as opposed to 3.8 cm. Mi nimal subcutaneous emphysema is seen. Thoracostomy tube is in place. Scattered areas of subsegmental atelectasis otherwise the lungs are clear. Very mild blunting of the costophrenic angles bilaterally relates to trace pleural effusions. Cardiomediastinal stable. IMPRESSION: Decreasing left hydropneumothorax and stable trace right pleural effusion.
[2019-05-09] MEDS: FLUTICASONE 110 MCG INHALER INHALATION SCH ×2 (07:35→19:40)
[2019-05-09] MEDS: MONTELUKAST 10 MG TAB PO SCH (08:25)
--- NOTE | 2019-05-09 09:00 | P.PN ---
Subjective Progress Note Date: 05/09/19 Principal diagnosis: Spontaneous left-sided pneumothorax, current at 13 weeks gestation. History of chronic persistent asthma. The patient is currently laying in bed in the cardiac stepdown unit in no acute distress eating breakfast. States her pain is slightly better but her breathing is the same, unable to take deep breaths. Thoravent was placed back to suction yesterday based on X-Ray and intermittent air leak with movement. This morning's X-Ray still shows left sided pneumothorax but less than yesterday. Currently she is sitting up and there is no air leak in her thoravent, even with coughing. She did ambulate in the hallway yesterday. No other new concerns. Objective - Vital Signs Vital signs: Vital Signs Temp 97.9 F 05/09/19 04:00 Pulse 98 05/09/19 04:00 Resp 16 05/09/19 04:00 BP 127/71 05/09/19 04:00 Pulse Ox 97 05/09/19 04:00 Intake & Output 05/08/19 05/09/19 05/09/19 18:59 06:59 18:59 Intake Total 1270 712 Balance 1270 712 Weight 43.4 kg Intake: IV 10 0.9 10 Oral 1270 702 Other: Voiding Method Toilet # Voids 2 4 - Constitutional General appearance: Present: cooperative, no acute distress, thin - Respiratory Details: Lungs sounds clear bilaterally, can be heard all the way to the apices bilaterally. Respirations even, nonlabored. Currently on room air with oxygen saturation 97%. Able to achieve 1750 mL on her incentive spirometer. Weak cough. Left sided thoravent present, connected to continuous wall suction, no air leak present. - Cardiovascular Details: S1, S2 present. Regular rate and rhythm, sinus rhythm on telemetry. Palpable peripheral pulses bilaterally. No edema present. No calf pain or tenderness noted. Refusing to wear SCDs. - Gastrointestinal Gastrointestinal Comment(s): Abdomen soft, nontender, nondistended. Active bowel sounds present 4 quadrants. Tolerating diet. - Genitourinary Genitourinary Comment(s): Continues to void - Integumentary Integumentary Comment(s): Skin is warm and dry without evidence of good perfusion - Neurologic Neurologic: Present: CNII-XII intact - Musculoskeletal Musculoskeletal: Present: gait normal, strength equal bilaterally - Psychiatric Psychiatric: Present: A&O x's 3, appropriate affect, intact judgment & insight - Allied health notes Allied health notes reviewed: nursing - Labs CBC & Chem 7: 05/05/19 13:55 05/05/19 13:55 - Imaging and Cardiology Chest x-ray: report reviewed, image reviewed Assessment and Plan Assessment: 1. Spontaneous left-sided pneumothorax, status post thoravent placement by the emergency room physicians 2. Chronic persistent asthma 3. , 13 weeks gestation Plan: 1. Continue thoravent to wall suction. Monitor for resolution of pneumothorax 2. Encourage incentive spirometry use 10 times every hour while awake 3. Will monitor daily x-rays 4. Bronchodilators per pulmonology 5. Increase activity, ambulate as tolerated 6. Pain control per primary care service 7. More recommendations to follow Time with Patient: Greater than 30
[2019-05-09 11:22] VITALS: BMI 17.4
--- NOTE | 2019-05-09 13:29 | P.PN ---
Subjective Progress Note Date: 05/09/19 Principal diagnosis: Left-sided spontaneous pneumothorax This is a 24-year-old -Citizen Of [place] female patient who is currently at her 13th week of gestation. The patient woke up yesterday and she felt an acute left-sided chest pain almost sounded like as if she was having a heart attack. She ended up coming into the hospital and she was found to have a large spontaneous left-sided pneumothorax. Immediately, a fluoroscopy vent was inserted into the left hemithorax with partial reexpansion of the left lung. I reviewed a series of chest x-rays and the last chest x-ray from yesterday showed that the patient still had a 20-25% pneumothorax on the left. As such, I connected the Thoravent to a Pleur-evac. The patient was also given a incentive spirometer. There is no active air leak at this point in time. She is still having some soreness along the left side of the chest. No hemodynamic instability. No tension. She has history of bronchial asthma. She has a metallic combination of Qvar and Singulair no outpatient basis and currently her asthma is currently inactive and stable. No smoking. No use of marijuana. No chest trauma. No pneumonias. No personal history or family history of pneumothorax. She was intubated for asthma many years back and cisplatin as well as been essentially inactive and stable. Her current is uncomplicated. On 05/07/2019 patient seen in follow-up on the selective care unit, she is awake and alert, in no acute distress, she is having slightly more discomfort on the left side of the chest today, but breath sounds are equal, good air entry noted bilaterally, today's chest x-ray has been reviewed showing near complete resolution of the left-sided pneumothorax, left-sided Thoravent is in place, connected to Pleur-evac and wall suction, and there is no air leak on today's exam. Room air pulse ox is 97%, vital signs are stable. On 05/08/2019 patient seen in follow-up on selective care unit, her Thoravent chest tube was placed to waterseal yesterday, and overnight patient was 7 increased discomfort in her left chest similar to the chest pain that brought her to the hospital. This morning's chest x-ray showed interval enlargement of sizable left pneumothorax measuring approximately 30%. This morning she seen in follow-up, she is awake and alert, appears to be in no acute distress, she is w orking on incentive spirometer, achieving 5538-4020 mL on the today, lung sounds reveal very diminished to no breath sounds over left lung to the mid-level area, and the chest tube was placed back to suction. Otherwise vital signs are stable, hemodynamically patient is stable. She has tolerated ambulation. She is requesting pain medication on the regular basis related to her left chest discomfort, on combination of oral [place] and Tylenol. On 05/09/2019 patient seen in follow-up on selective care unit, left Thoravent chest tube was placed to suction yesterday, no acute issues overnight, today's chest x-ray shows decreasing left hydropneumothorax and stable trace right pleural effusion, patient has been up ambulating, tolerating activity well, incentive spirometry effort is [id number] ML. Lung sounds reveal breath sounds bilaterally, good air entry noted bilaterally, no cough or congestion. Still has tenderness in the left chest, which seems to be improved. CT surgery is following, and their recommendations have been noted Objective - Vital Signs Vital signs: Vital Signs Temp 98.1 F 05/09/19 08:20 Pulse 90 05/09/19 11:25 Resp 16 05/09/19 11:25 BP 131/98 05/09/19 11:25 Pulse Ox 99 05/09/19 11:25 Intake & Output 05/08/19 05/09/19 05/09/19 18:59 06:59 18:59 Intake Total 1270 712 236 Balance 1270 712 236 Weight 43.4 kg 43.4 kg Intake: IV 10 0.9 10 Oral 1270 702 236 Other: Voiding Method Toilet Toilet # Voids 2 4 2 - Exam GENERAL EXAM: Alert, very pleasant, 24-year-old -Citizen [place] female comf ortable in no apparent distress. HEAD: Normocephalic/atraumatic. EYES: Normal reaction of pupils, equal size. Conjunctiva pink, sclera white. NOSE: Clear with pink turbinates. THROAT: No erythema or exudates. NECK: No masses, no JVD, no thyroid enlargement, no adenopathy. CHEST: No chest wall deformity. Symmetrical expansion. Left-sided Thoravent is in place, connected to Pleur-evac to waterseal, no evidence of air leak LUNGS: good air entry bilaterally,no crackles, no wheeze, rhonchi or dullness. CVS: Regular rate and rhythm, normal S1 and S2, no gallops, no murmurs, no rubs ABDOMEN: Soft, nontender. No hepatosplenomegaly, normal bowel sounds, no guarding or rigidity. EXTREMITIES: No clubbing, no edema, no cyanosis, 2+ pulses and upper and lower extremities. MUSCULOSKELETAL: Muscle strength and tone normal. SPINE: No scoliosis or deformity SKIN: No rashes CENTRAL NERVOUS SYSTEM: Alert and oriented -3. No focal deficits, tone is normal in all 4 extremities. PSYCHIATRIC: Alert and oriented -3. Appropriate affect. Intact judgment and insight. - Labs CBC & Chem 7: 05/05/19 13:55 05/05/19 13:55 Assessment and Plan Plan: Assessment: 1 spontaneous left-sided pneumothorax post fluoroscopy vent insertion. There was incompletely especially the left lung post tube insertion and the patient w as connected to a Pleur-evac. 2 acute chest pain secondary to above 3 acute shortness of breath secondary to above 4 chronic bronchial asthma currently inactive in stable 5 currently at her 13th week of gestation Plan: Today's chest x-ray has been reviewed, decreasing left hydropneumothorax, breathing is stable, left chest tube has been placed back to suction, no air leak. We'll repeat chest x-ray tomorrow, hemodynamically she remains stable, continue encouraging deep breathing and coughing, CT surgery is following I performed a history & physical examination of the patient and discussed their management with my nurse practitioner, Justine Bowman. I reviewed the nurse practitioner's note and agree with the documented findings and plan of care. Lung sounds are positive for clear breath sounds. The findings and the impression was discussed with the patient. I attest to the documentation by the nurse practitioner. Time with Patient: Less than 30
--- NOTE | 2019-05-09 15:12 | P.PN ---
Subjective Progress Note Date: 05/09/19 Principal diagnosis: Left acute spontaneous pneumothorax Patient is a 24-year-old female with a known history of asthma came to ER with the complaints of left-sided sharp chest pain started around 1 AM last night. Patient developed cough along with an could not take deep breaths. Pain is mainly left anterior chest and wraps around left back. Denied any complaints of cough or sputum production. No fever no chills. Patient was tachycardic on admission. Patient was previously was intubated and also on BiPAP due to Sever asthma exacerbation. Chest x-ray showed mildly left-sided tension pneumothorax. Patient is also with 13 weeks intrauterine . Laboratory data reviewed. 05 06 2019 Patient says that her left-sided chest pain is better. Continued on thoravent w leticia has been attached to action. Pulmonary is on board. Follow-up x-ray tomorrow. Continue with incentive spirometry and breathing treatments as needed. Patient has been afebrile. No nausea vomiting or abdominal pain. Saturating well on room air. Current medications reviewed. 05/07/2019 Patient is sitting up in bed in no acute distress with no acute overnight issues. Patient is currently maintained on a thoravent of the left side and repeat chest x-ray this morning shows near resolution of the left pneumothorax with a trace and some areas of subsegmental atelectasis in both lungs. Pu lmonary is following. Patient continues to have some discomfort noted on the chest wall but states that her breathing is much improved and is currently maintaining oxygen saturations on room air. Patient expressed her concern about her and is concerned due to her condition and would like an ultrasound. An ultrasound was ordered. Patient instructed to follow-up with [facility] upon discharge and as scheduled on May 30. Currently patient denies any chest pain, shortness of breath, or palpitations. Patient is afebrile. Patient denies any nausea or vomiting and is tolerating diet. Patient denies any abdominal cramping or vaginal bleeding at this time. Will continue to monitor closely. 05/08/2019 patient is lying in bed in no acute distress. Patient states that her breathing has improved but still feels that she is unable to take a complete breath in and states that it is most likely due to the pain on the chest where the thoravent is. Patient was switched to oral pain medication Selden and states that it is helping but she is only receiving that every 6 hours. Patient has been using Tylenol in between for breakthrough which is helping. Patient also has heat packs applied around the area of the chest tube to help with the discomfort. Currently patient denies any chest pain, shortness of breath, or palpitations. Patient is afebrile. Patient denies any nausea or vomiting and is tolerating diet. Patient states that she had an episode of vomiting last night and had a brief moment of shortness of breath during that time. Patient's repeat chest x- ray today shows an interval enlargement of the left pneumothorax now measuring approximate 30%. Pulmonary and cardiothoracic surgery are following closely. Will continue with daily chest x-rays to monitor for resolution of the pneumothorax. Will continue to monitor closely. 05/09/2019 Patient is sitting up in bed in no acute distress. Thoravent of the left chest wall still intact and has been hooked back up to suction. No acute overnight issues. Today's chest x-ray shows a decreasing left hydropneumothorax with a stable trace right pleural effusion. Multiple medical consultations are following. Discussed with the patient about using incentive spirometer at least 10 times per hour while awake and encouraging coughing and deep breathing. Patient states that she has been using the incentive spirometer and has been getting up and walking with no issues. Patient continues to have some mild c hest discomfort but has improved since yesterday. Will continue to monitor closely. Objective - Vital Signs Vital signs: Vital Signs Temp 98.1 F 05/09/19 08:20 Pulse 90 05/09/19 11:25 Resp 16 05/09/19 11:25 BP 131/98 05/09/19 11:25 Pulse Ox 99 05/09/19 11:25 Intake & Output 05/08/19 05/09/19 05/09/19 18:59 06:59 18:59 Intake Total 1270 712 236 Balance 1270 712 236 Weight 43.4 kg 43.4 kg Intake: IV 10 0.9 10 Oral 1270 702 236 Other: Voiding Method Toilet Toilet # Voids 2 4 2 - Exam Patient is sitting up in the bed comfortably, no acute distress, awake alert and oriented. Vital signs are stable. HEENT: Normocephalic. Neck is supple. Pupils reactive. Nostrils clear. Oral cavity is moist. Ears reveal no drainage. Neck reveals no JVD, carotid bruits, or thyromegaly. CHEST EXAMINATION: Trachea is central. Symmetrical expansion. Left basilar diminished air entry. Lung schulte clear to auscultation and percussion. Left anterior chest tender to palpation. Chest tube in place and hooked to suction CARDIAC: Normal S1, S2 with no gallops. No murmurs ABDOMEN: Soft. Bowel sounds normal. No organomegaly. No abdominal bruits. Extremities: reveal no edema. No clubbing or cyanosis Neurologically awake, alert, oriented x3 with well-coordinated movements. No focal deficits noted Skin: No rash or skin lesions. Psychiatric: Cooperative. Non-suicidal Musculoskeletal: No joint swelling or deformity. Normal range of motion. - Labs CBC & Chem 7: 05/05/19 13:55 05/05/19 13:55 Assessment and Plan Assessment: -Left-sided spontaneous pneumothorax. Continue with thoravac with suction. Cardiothoracic surgery and Pulmonary are following -Chronic asthma. Not in exacerbation. History of BiPAP use in the past -13 weeks intrauterine -DVT prophylaxis with early ambulation Plan: Patient will continue with repeat chest x-rays. Today's repeat chest x-ray shows decreasing left hydropneumothorax and a stable trace right pleural effusions. Thoravent in place and connected to water seal. Cardiothoracic surgery and Pulmonary are following. Continue the pain management with Selden and Tylenol. Follow up closely and further recommendations based on the clinical course.
[2019-05-10] MEDS: HYDROcodone/APAP 5-325MG 1 EACH TAB PO PRN ×3 (02:59→17:04)
[2019-05-10] MEDS: ACETAMINOPHEN TAB 500 MG TAB PO PRN ×3 (06:28→19:53)
--- NOTE | 2019-05-10 07:23 | XR ---
EXAMINATION TYPE: XR chest 1V portable DATE OF EXAM: 05/10/2019 COMPARISON: 05/09/2019 HISTORY: Chest pain TECHNIQUE: Single frontal view of the chest is obtained. FINDINGS: Left-sided pleural catheter is in place. Left apical pneumothorax is essentially unchanged at 1.6 cm maximal dimension on today's study versus 1.66 cm on prior examination. Clear. Small amount of subcut aneous air identified. IMPRESSION: 1. Essentially stable left apical pneumothorax.
[2019-05-10] MEDS: FLUTICASONE 110 MCG INHALER INHALATION SCH ×2 (08:59→20:33)
[2019-05-10] MEDS: MONTELUKAST 10 MG TAB PO SCH (09:39)
--- NOTE | 2019-05-10 11:17 | P.PN ---
Subjective Progress Note Date: 05/10/19 Principal diagnosis: Left-sided spontaneous pneumothorax This is a 24-year-old -[place] female patient who is currently at her 13th week of gestation. The patient woke up yesterday and she felt an acute left-sided chest pain almost sounded like as if she was having a heart attack. She ended up coming into the hospital and she was found to have a large spontaneous left-sided pneumothorax. Immediately, a fluoroscopy vent was inserted into the left hemithorax with partial reexpansion of the left lung. I reviewed a series of chest x-rays and the last chest x-ray from yesterday showed that the patient still had a 20-25% pneumothorax on the left. As such, I connected the Thoravent to a Pleur-evac. The patient was also given a incentive spirometer. There is no active air leak at this point in time. She is still having some soreness along the left side of the chest. No hemodynamic instability. No tension. She has history of bronchial asthma. She has a metallic combination of Qvar and Singulair no outpatient basis and currently her asthma is currently inactive and stable. No smoking. No use of marijuana. No chest trauma. No pneumonias. No personal history or family history of pneumothorax. She was intubated for asthma many years back and cisplatin as well as been essentially inactive and stable. Her current is uncomplicated. On 05/07/2019 patient seen in follow-up on the selective care unit, she is awake and alert, in no acute distress, she is having slightly more discomfort on the left side of the chest today, but breath sounds are equal, good air entry noted bilaterally, today's chest x-ray has been reviewed showing near complete resolution of the left-sided pneumothorax, left-sided Thoravent is in place, connected to Pleur-evac and wall suction, and there is no air leak on today's exam. Room air pulse ox is 97%, vital signs are stable. On 05/08/2019 patient seen in follow-up on selective care unit, her Thoravent chest tube was placed to waterseal yesterday, and overnight patient was 7 increased discomfort in her left chest similar to the chest pain that brought her to the hospital. This morning's chest x-ray showed interval enlargement of sizable left pneumothorax measuring approximately 30%. This morning she seen in follow-up, she is awake and alert, appears to be in no acute distress, she is w orking on incentive spirometer, achieving 7303-2409 mL on the today, lung sounds reveal very diminished to no breath sounds over left lung to the mid-level area, and the chest tube was placed back to suction. Otherwise vital signs are stable, hemodynamically patient is stable. She has tolerated ambulation. She is requesting pain medication on the regular basis related to her left chest discomfort, on combination of oral [place] and Tylenol. On 05/09/2019 patient seen in follow-up on selective care unit, left Thoravent chest tube was placed to suction yesterday, no acute issues overnight, today's chest x-ray shows decreasing left hydropneumothorax and stable trace right pleural effusion, patient has been up ambulating, tolerating activity well, incentive spirometry effort is 7138-3382 ML. Lung sounds reveal breath sounds bilaterally, good air entry noted bilaterally, no cough or congestion. Still has tenderness in the left chest, which seems to be improved. CT surgery is following, and their recommendations have been noted. On 05/10/2019 patient is seen in follow-up on selective care unit, she is awake and alert, in no acute distress, she states she is experiencing slightly more discomfort in the left chest today compared to yesterday, but overall in no acute distress. Her left chest tube has been taken off the wall suction, today's chest x-ray shows slight improvement in the appearance of left apical pneumothorax, but essentially it is stable. Clinically patient stable, blood pressure stable, oxygenation is 98% on room air. Sounds reveal good air entry bilaterally, equal breath sounds. Objective - Vital Signs Vital signs: Vital Signs Temp 98.1 F 05/10/19 07:48 Pulse 90 05/10/19 09:44 Resp 16 05/10/19 09:44 BP 124/73 05/10/19 07:48 Pulse Ox 98 05/10/19 07:48 Intake & Output 05/09/19 05/10/19 05/10/19 18:59 06:59 18:59 Intake Total 680 270 300 Balance 680 270 300 Weight 43.4 kg 44 kg Intake: Oral 680 270 300 Other: Voiding Method Toilet Toilet Toilet # Voids 2 1 - Exam GENERAL EXAM: Alert, very pleasant, 24-year-old -[place] female comfortable in no apparent distress. HEAD: Normocephalic/atraumatic. EYES: Normal reaction of pupils, equal size. Conjunctiva pink, sclera white. NOSE: Clear with pink turbinates. THROAT: No erythema or exudates. NECK: No masses, no JVD, no thyroid enlargement, no adenopathy. CHEST: No chest wall deformity. Symmetrical expansion. Left-sided Thoravent is in place, connected to Pleur-evac to waterseal, no evidence of air leak LUNGS: good air entry bilaterally,no crackles, no wheeze, rhonchi or dullness. CVS: Regular rate and rhythm, normal S1 and S2, no gallops, no murmurs, no rubs ABDOMEN: Soft, nontender. No hepatosplenomegaly, normal bowel sounds, no guarding or rigidity. EXTREMITIES: No clubbing, no edema, no cyanosis, 2+ pulses and upper and lower extremities. MUSCULOSKELETAL: Muscle strength and tone normal. SPINE: No scoliosis or deformity SKIN: No rashes CENTRAL NERVOUS SYSTEM: Alert and oriented -3. No focal deficits, tone is normal in all 4 extremities. PSYCHIATRIC: Alert and oriented -3. Appropriate affect. Intact judgment and insight. - Labs CBC & Chem 7: 05/05/19 13:55 05/05/19 13:55 Assessment and Plan Plan: Assessment: 1 spontaneous left-sided pneumothorax post fluoroscopy vent insertion. There was incompletely especially the left lung post tube insertion and the patient was connected to a Pleur-evac. 2 acute chest pain secondary to above 3 acute shortness of breath secondary to above 4 chronic bronchial asthma currently inactive in stable 5 currently at her 13th week of gestation Plan: Continue current medical treatment, left chest tube is off the suction apical pneumothorax is stable in appearance, hemodynamically patient remains stable. He is working on incentive spirometer, continue daily chest x-rays, CT surgery is following. Encourage ambulation. I performed a history & physical examination of the patient and discussed their management with my nurse practitioner, Justine Bowman. I reviewed the nurse practitioner's note and agree with the documented findings and plan of care. Lung sounds are positive for clear breath sounds. The findings and the impression was discussed with the patient. I attest to the documentation by the nurse practitioner. Time with Patient: Less than 30
--- NOTE | 2019-05-10 12:45 | P.PN ---
Subjective Progress Note Date: 05/10/19 Principal diagnosis: Spontaneous left-sided pneumothorax, current at 13 weeks gestation. History of chronic persistent asthma. The patient is currently laying in bed in the cardiac stepdown unit in no acute distress. States her pain is slightly worse than yesterday. Thoravent remains to suction, no air leak present. This morning's X-Ray still shows left sided pneumothorax but less than yesterday. Currently she is sitting up and there is no air leak in her thoravent, even with coughing. She did ambulate in the hallway yesterday several times. No other new concerns. Objective - Vital Signs Vital signs: Vital Signs Temp 98.1 F 05/10/19 07:48 Pulse 90 05/10/19 09:44 Resp 16 05/10/19 09:44 BP 124/73 05/10/19 07:48 Pulse Ox 98 05/10/19 07:48 Intake & Output 05/09/19 05/10/19 05/10/19 18:59 06:59 18:59 Intake Total 680 270 300 Balance 680 270 300 Weight 43.4 kg 44 kg Intake: Oral 680 270 300 Other: Voiding Method Toilet Toilet Toilet # Voids 2 1 - Constitutional General appearance: Present: cooperative, no acute distress - Respiratory Details: Lungs sounds clear bilaterally. Respirations even, nonlabored. Currently on room air with oxygen saturation 96%. Able to achieve 2000 mL on her incentive spirometer. Weak cough. Left sided thoravent present, connected to continuous wall suction, no air leak present. - Cardiovascular Details: S1, S2 present. Regular rate and rhythm, sinus rhythm on telemetry. Palpable peripheral pulses bilaterally. No edema present. No calf pain or tenderness noted. Refusing to wear SCDs. - Gastrointestinal Gastrointestinal Comment(s): Abdomen soft, nontender, nondistended. Active bowel sounds present 4 quadrant s. Tolerating diet. - Genitourinary Genitourinary Comment(s): Continues to void - Integumentary Integumentary Comment(s): Skin is warm and dry without evidence of good perfusion - Neurologic Neurologic: Present: CNII-XII intact - Musculoskeletal Musculoskeletal: Present: gait normal, strength equal bilaterally - Psychiatric Psychiatric: Present: A&O x's 3, appropriate affect, intact judgment & insight - Allied health notes Allied health notes reviewed: nursing - Labs CBC & Chem 7: 05/05/19 13:55 05/05/19 13:55 - Imaging and Cardiology Chest x-ray: report reviewed, image reviewed Assessment and Plan Assessment: 1. Spontaneous left-sided pneumothorax, status post thoravent placement by the emergency room physicians 2. Chronic persistent asthma 3. , 13 weeks gestation Plan: 1. Will cap thoravent. If patient has significant respiratory distress, may re-connect to suction. Monitor for resolution of pneumothorax 2. Encourage incentive spirometry use 10 times every hour while awake 3. Will monitor daily x-rays 4. Bronchodilators per pulmonology 5. Increase activity, ambulate as tolerated 6. Pain control per primary care service 7. More recommendations to follow Time with Patient: Greater than 30
[2019-05-10] MEDS: ALBUTEROL NEBULIZED 2.5 MG/3 ML INHALATION PRN (13:49)
--- NOTE | 2019-05-10 14:54 | P.PN ---
Subjective Progress Note Date: 05/10/19 Principal diagnosis: Left acute spontaneous pneumothorax Patient is a 24-year-old female with a known history of asthma came to ER with the complaints of left-sided sharp chest pain started around 1 AM last night. Patient developed cough along with an could not take deep breaths. Pain is mainly left anterior chest and wraps around left back. Denied any complaints of cough or sputum production. No fever no chills. Patient was tachycardic on admission. Patient was previously was intubated and also on BiPAP due to Sever asthma exacerbation. Chest x-ray showed mildly left-sided tension pneumothorax. Patient is also with 13 weeks intrauterine . Laboratory data reviewed. 05 06 2019 Patient says that her left-sided chest pain is better. Continued on thoravent w leticia has been attached to action. Pulmonary is on board. Follow-up x-ray tomorrow. Continue with incentive spirometry and breathing treatments as needed. Patient has been afebrile. No nausea vomiting or abdominal pain. Saturating well on room air. Current medications reviewed. 05/07/2019 Patient is sitting up in bed in no acute distress with no acute overnight issues. Patient is currently maintained on a thoravent of the left side and repeat chest x-ray this morning shows near resolution of the left pneumothorax with a trace and some areas of subsegmental atelectasis in both lungs. Pu lmonary is following. Patient continues to have some discomfort noted on the chest wall but states that her breathing is much improved and is currently maintaining oxygen saturations on room air. Patient expressed her concern about her and is concerned due to her condition and would like an ultrasound. An ultrasound was ordered. Patient instructed to follow-up with [facility] upon discharge and as scheduled on May 30. Currently patient denies any chest pain, shortness of breath, or palpitations. Patient is afebrile. Patient denies any nausea or vomiting and is tolerating diet. Patient denies any abdominal cramping or vaginal bleeding at this time. Will continue to monitor closely. 05/08/2019 patient is lying in bed in no acute distress. Patient states that her breathing has improved but still feels that she is unable to take a complete breath in and states that it is most likely due to the pain on the chest where the thoravent is. Patient was switched to oral pain medication Marshall and states that it is helping but she is only receiving that every 6 hours. Patient has been using Tylenol in between for breakthrough which is helping. Patient also has heat packs applied around the area of the chest tube to help with the discomfort. Currently patient denies any chest pain, shortness of breath, or palpitations. Patient is afebrile. Patient denies any nausea or vomiting and is tolerating diet. Patient states that she had an episode of vomiting last night and had a brief moment of shortness of breath during that time. Patient's repeat chest x- ray today shows an interval enlargement of the left pneumothorax now measuring approximate 30%. Pulmonary and cardiothoracic surgery are following closely. Will continue with daily chest x-rays to monitor for resolution of the pneumothorax. Will continue to monitor closely. 05/09/2019 Patient is sitting up in bed in no acute distress. Thoravent of the left chest wall still intact and has been hooked back up to suction. No acute overnight issues. Today's chest x-ray shows a decreasing left hydropneumothorax with a stable trace right pleural effusion. Multiple medical consultations are following. Discussed with the patient about using incentive spirometer at least 10 times per hour while awake and encouraging coughing and deep breathing. Patient states that she has been using the incentive spirometer and has been getting up and walking with no issues. Patient continues to have some mild c hest discomfort but has improved since yesterday. Will continue to monitor closely. 05/10/2019 Patient is sitting up in bed in no acute distress. Thoravent of the left chest wall has been capped today from vascular surgery. Repeat chest x-ray today shows an essentially stable left apical pneumothorax. Patient is being monitored closely. Patient states that her breathing is improved and she co ntinues to use her incentive spirometer and reaching maximums of 2000 today. Patient continues to have chest discomfort at the vent site is currently taking [place] and Tylenol for pain. Patient is concerned about taking [place] while as she was told by family that Marshall is unsafe for the baby. Discussed with the patient at length about pain management during and that for short term use, it is appropriate but to be used with caution. Currently patient denies any chest pain, shortness of breath, or palpitations. Patient has been afebrile. Patient denies any nausea or vomiting and is tolerating diet. Will continue to monitor closely. Objective - Vital Signs Vital signs: Vital Signs Temp 98.1 F 05/10/19 07:48 Pulse 90 05/10/19 09:44 Resp 16 05/10/19 09:44 BP 124/73 05/10/19 07:48 Pulse Ox 98 05/10/19 07:48 Intake & Output 05/09/19 05/10/19 05/10/19 18:59 06:59 18:59 Intake Total 680 270 300 Balance 680 270 300 Weight 43.4 kg 44 kg Intake: Oral 680 270 300 Other: Voiding Method Toilet Toilet Toilet # Voids 2 1 - Exam Patient is sitting up in the bed comfortably, no acute distress, awake alert and oriented. Vital signs are stable. HEENT: Normocephalic. Neck is supple. Pupils reactive. Nostrils clear. Oral cavity is moist. Ears reveal no drainage. Neck reveals no JVD, carotid bruits, or thyromegaly. CHEST EXAMINATION: Trachea is central. Symmetrical expansion. Left basilar diminished air entry. Lung schulte clear to auscultation and percussion. Left anterior chest tender to palpation. Chest tube in place and hooked presently capped CARDIAC: Normal S1, S2 with no gallops. No murmurs ABDOMEN: Soft. Bowel sounds normal. No organomegaly. No abdominal bruits. Extremities: reveal no edema. No clubbing or cyanosis Neurologically awake, alert, oriented x3 with well-coordinated movements. No focal deficits noted Skin: No rash or skin lesions. Psychiatric: Cooperative. Non-suicidal Musculoskeletal: No joint swelling or deformity. Normal range of motion. - Labs CBC & Chem 7: 05/05/19 13:55 05/05/19 13:55 Assessment and Plan Assessment: -Left-sided spontaneous pneumothorax. Continue with thoravac with suction. Cardiothoracic surgery and Pulmonary are following -Chronic asthma. Not in exacerbation. History of BiPAP use in the past -13 weeks intrauterine -DVT prophylaxis with early ambulation Plan: Patient will continue with repeat chest x-rays. Today's repeat chest x-ray shows stable left apical pneumothorax that is essentially unchanged from yesterday. Thoravent in place and capped at this time. Cardiothoracic surgery and Pulmonary are following. Continue the pain management with [place] and Tylenol. heart tone monitoring was ordered daily. Follow up closely and further recommendations based on the clinical course. Possible discharge in 24- 48 hours.
[2019-05-11] MEDS: HYDROcodone/APAP 5-325MG 1 EACH TAB PO PRN (03:52)
--- NOTE | 2019-05-11 07:03 | XR ---
EXAMINATION TYPE: XR chest 2V DATE OF EXAM: 05/11/2019 COMPARISON: 05/10/2019 HISTORY: Follow-up for left-sided pneumothorax. TECHNIQUE: Frontal and lateral views of the chest are obtained. FINDINGS: Left thoracostomy tube is similar in position. The left apical pneumothorax has slightly im proved in the interim with maximum apical pleural separation now measuring 1.1 cm and previously nidhi uring 1.6 cm. Pleural effusions appear to have resolved. Subcutaneous emphysema in the left axilla is again noted. Cardiomediastinal silhouette is stable. No acute osseous pathology. IMPRESSION: Slightly improved apical left pneumothorax similar position of the left thoracostomy tub e.
[2019-05-11] MEDS: FLUTICASONE 110 MCG INHALER INHALATION SCH (07:10)
[2019-05-11] MEDS: MONTELUKAST 10 MG TAB PO SCH (09:19)
[2019-05-11] MEDS: ACETAMINOPHEN TAB 500 MG TAB PO PRN (09:20)
--- NOTE | 2019-05-11 09:56 | P.PN ---
Subjective Progress Note Date: 05/11/19 Principal diagnosis: Spontaneous left-sided pneumothorax, current at 13 weeks gestation. History of chronic persistent asthma Status post day #6 placement of left sided Thoravent chest tube placed in the emergency department by the emergency department physician. The patient is laying in bed on the cardiac stepdown unit. She is in no acute distress. Denies any complaints of pain or shortness of breath. Chest x-ray this morning shows a slightly improved left apical pneumothorax. Left chest Thoravent remains in place and has been capped for the last 24 hours. Oxygen saturation is 95% on room air. She is anxious to be discharged home. Objective - Vital Signs Vital signs: Vital Signs Temp 98.1 F 05/11/19 07:52 Pulse 89 05/11/19 09:34 Resp 16 05/11/19 09:34 BP 122/66 05/11/19 07:52 Pulse Ox 95 05/11/19 07:52 Intake & Output 05/10/19 05/11/19 05/11/19 18:59 06:59 18:59 Intake Total 522 240 Output Total 0 Balance 522 0 240 Weight 45.3 kg Intake: Oral 522 240 Output: Chest Tube Drainage 0 Thora-Vent Left Upper 0 Anterior Chest Other: Voiding Method Toilet Toilet Toilet # Voids 2 - Constitutional General appearance: Present: cooperative, no acute distress, thin - Respiratory Details: Lung sounds are essentially clear throughout. No wheezes, crackles or rhonchi. Respirations are symmetrical and nonlabored. Oxygen saturation is 95% on room air. Achieving 2000 mL on her incentive spirometry. Left chest Thoravent in place and is capped. - Cardiovascular Details: Regular rhythm and rate. S1 and S2 present, negative for S3, positive systolic murmur heard best to her right sternal border 3/6. No edema present. - Gastrointestinal Gastrointestinal Comment(s): Abdomen is soft, nontender and nondistended. Active bowel sounds present all 4 abdominal quadrants. No guarding or rigidity. No organomegaly appreciated. - Integumentary Integumentary Comment(s): Skin is warm and dry. No clubbing or cyanosis is present. No rash or abnormal pigmentation is present. - Neurologic Neurologic: Present: CNII-XII intact - Musculoskeletal Musculoskeletal: Present: gait normal, strength equal bilaterally - Psychiatric Psychiatric: Present: A&O x's 3, appropriate affect, intact judgment & insight - Allied health notes Allied health notes reviewed: nursing - Labs CBC & Chem 7: 05/05/19 13:55 05/05/19 13:55 - Imaging and Cardiology Chest x-ray: report reviewed, image reviewed Assessment and Plan Assessment: 1. Spontaneous left-sided pneumothorax, status post thoravent placement by the emergency room physicians 2. Chronic persistent asthma 3. , 13 weeks gestation Plan: 1. Thoravent removed without incident. We will obtain a chest x-ray in 2 hours after the Thoravent has been removed, if there is no sizable pneumothorax, okay to discharge home per the cardiothoracic surgery standpoint when okay with primary care service. 2. Continue to encourage incentive spirometry use 10 times every hour while awake. 3. Bronchodilators per pulmonology. 4. Increase activity, ambulate as tolerated. 5. Pain control per primary care service. 6. We will follow the patient on an as needed basis. Time with Patient: Greater than 30
--- NOTE | 2019-05-11 11:07 | P.PN ---
Subjective Progress Note Date: 05/11/19 Principal diagnosis: Left-sided spontaneous pneumothorax This is a 24-year-old -Iranian female patient who is currently at her 13th week of gestation. The patient woke up yesterday and she felt an acute left-sided chest pain almost sounded like as if she was having a heart attack. She ended up coming into the hospital and she was found to have a large spontaneous left-sided pneumothorax. Immediately, a fluoroscopy vent was inserted into the left hemithorax with partial reexpansion of the left lung. I reviewed a series of chest x-rays and the last chest x-ray from yesterday showed that the patient still had a 20-25% pneumothorax on the left. As such, I connected the Thoravent to a Pleur-evac. The patient was also given a incentive spirometer. There is no active air leak at this point in time. She is still having some soreness along the left side of the chest. No hemodynamic instability. No tension. She has history of bronchial asthma. She has a metallic combination of Qvar and Singulair no outpatient basis and currently her asthma is currently inactive and stable. No smoking. No use of marijuana. No chest trauma. No pneumonias. No personal history or family history of pneumothorax. She was intubated for asthma many years back and cisplatin as well as been essentially inactive and stable. Her current is uncomplicated. On 05/07/2019 patient seen in follow-up on the selective care unit, she is awake and alert, in no acute distress, she is having slightly more discomfort on the left side of the chest today, but breath sounds are equal, good air entry noted bilaterally, today's chest x-ray has been reviewed showing near complete resolution of the left-sided pneumothorax, left-sided Thoravent is in place, connected to Pleur-evac and wall suction, and there is no air leak on today's exam. Room air pulse ox is 97%, vital signs are stable. On 05/08/2019 patient seen in follow-up on selective care unit, her Thoravent chest tube was placed to waterseal yesterday, and overnight patient was 7 increased discomfort in her left chest similar to the chest pain that brought her to the hospital. This morning's chest x-ray showed interval enlargement of sizable left pneumothorax measuring approximately 30%. This morning she seen in follow-up, she is awake and alert, appears to be in no acute distress, she is w orking on incentive spirometer, achieving 9116-3133 mL on the today, lung sounds reveal very diminished to no breath sounds over left lung to the mid-level area, and the chest tube was placed back to suction. Otherwise vital signs are stable, hemodynamically patient is stable. She has tolerated ambulation. She is requesting pain medication on the regular basis related to her left chest discomfort, on combination of oral Burton and Tylenol. On 05/09/2019 patient seen in follow-up on selective care unit, left Thoravent chest tube was placed to suction yesterday, no acute issues overnight, today's chest x-ray shows decreasing left hydropneumothorax and stable trace right pleural effusion, patient has been up ambulating, tolerating activity well, incentive spirometry effort is [id number] ML. Lung sounds reveal breath sounds bilaterally, good air entry noted bilaterally, no cough or congestion. Still has tenderness in the left chest, which seems to be improved. CT surgery is following, and their recommendations have been noted. On 05/10/2019 patient is seen in follow-up on selective care unit, she is awake and alert, in no acute distress, she states she is experiencing slightly more discomfort in the left chest today compared to yesterday, but overall in no acute distress. Her left chest tube has been taken off the wall suction, today's chest x-ray shows slight improvement in the appearance of left apical pneumothorax, but essentially it is stable. Clinically patient stable, blood pressure stable, oxygenation is 98% on room air. Sounds reveal good air entry bilaterally, equal breath sounds. On 05/11/2019 patient seen in follow-up on selective care unit, this morning is chest x-ray showed a decrease in the size of the left apical pneumothorax, and he was down to 1.1 cm from yesterday's exam measuring 1.6 cm left apical pneumothorax on the left side. Her left chest tube has been discontinued, today she seen resting in bed, she states her chest tube site insertion is very tender post removal. Hemodynamically she remains stable, denies any worsening shortness of breath, room air pulse ox is 95%, no fever or chills. She continues to work on the incentive spirometer, follow-up chest x-ray is pending Objective - Vital Signs Vital signs: Vital Signs Temp 98.1 F 05/11/19 07:52 Pulse 89 05/11/19 09:34 Resp 16 05/11/19 09:34 BP 122/66 05/11/19 07:52 Pulse Ox 95 05/11/19 07:52 Intake & Output 05/10/19 05/11/19 05/11/19 18:59 06:59 18:59 Intake Total 522 240 Output Total 0 Balance 522 0 240 Weight 45.3 kg Intake: Oral 522 240 Output: Chest Tube Drainage 0 Thora-Vent Left Upper 0 Anterior Chest Other: Voiding Method Toilet Toilet Toilet # Voids 2 - Exam GENERAL EXAM: Alert, very pleasant, 24-year-old -Iranian female comfortable in no apparent distress. HEAD: Normocephalic/atraumatic. EYES: Normal reaction of pupils, equal size. Conjunctiva pink, sclera white. NOSE: Clear with pink turbinates. THROAT: No erythema or exudates. NECK: No masses, no JVD, no thyroid enlargement, no adenopathy. CHEST: No chest wall deformity. Symmetrical expansion. Interval removal of left-sided Thoravent LUNGS: good air entry bilaterally,no crackles, no wheeze, rhonchi or dullness. CVS: Regular rate and rhythm, normal S1 and S2, no gallops, no murmurs, no rubs ABDOMEN: Soft, nontender. No hepatosplenomegaly, normal bowel sounds, no guarding or rigidity. EXTREMITIES: No clubbing, no edema, no cyanosis, 2+ pulses and upper and lower extremities. MUSCULOSKELETAL: Muscle strength and tone normal. SPINE: No scoliosis or deformity SKIN: No rashes CENTRAL NERVOUS SYSTEM: Alert and oriented -3. No focal deficits, tone is normal in all 4 extremities. PSYCHIATRIC: Alert and oriented -3. Appropriate affect. Intact judgment and insight. - Labs CBC & Chem 7: 05/05/19 13:55 05/05/19 13:55 Assessment and Plan Plan: Assessment: 1 spontaneous left-sided pneumothorax post fluoroscopy vent insertion. There was incompletely especially the left lung post tube insertion and the patient was connected to a Pleur-evac. On 05/11/2019 there has been improvement in the size of the left apical pneumothorax after Thoravent chest tube had been capped. Thoravent removed, the chest x-ray is pending 2 acute chest pain secondary to above 3 acute shortness of breath secondary to above 4 chronic bronchial asthma currently inactive in stable 5 currently at her 13th week of gestation Plan: Awaiting repeat chest x-ray post removal of the left chest Thoravent chest tube. Hemodynamically she remains stable, this morning's chest x-ray showed improvement in the size of left apical pneumothorax, she has been tolerating ambulation, continue encouraging deep breathing and coughing, as will discharge home later today if no sizable pneumothorax with removal of the left chest tube I performed a history & physical examination of the patient and discussed their management with my nurse practitioner, Justine Bowman. I reviewed the nurse practitioner's note and agree with the documented findings and plan of care. Lung sounds are positive for clear breath sounds. The findings and the impression was discussed with the patient. I attest to the documentation by the nurse practitioner. Time with Patient: Less than 30
[2019-05-11 11:54] VITALS: BP 122/85; PULSE 91; RESP 18; TEMP 98.6
--- NOTE | 2019-05-11 12:10 | XR ---
EXAMINATION TYPE: XR chest 1V portable DATE OF EXAM: 05/11/2019 COMPARISON: 05/11/2019 chest tube removal. HISTORY: Pneumothorax. Follow-up after chest tube removal. TECHNIQUE: Single frontal view of the chest is obtained. FINDINGS: There is redemonstration of a small left apical pneumothorax that has not increased in siz e from the prior of the same date after chest tube removal. Left axillary serpiginous emphysema again noted. Lungs are overall well aerated. Osseous structures appear intact. Cardiomediastinal silhouett e is within normal limits. IMPRESSION: No increase in size of the small left apical pneumothorax after chest tube removal.
--- NOTE | 2019-05-14 09:21 | P.DS ---
Providers Date of admission: 05/05/19 15:44 Expected date of discharge: 05/11/19 Attending physician: Edin Lopez Consults: 05/05/19 15:45 Consult Physician Urgent Consulting Provider: Jaxson Christiansen Consult Reason/Comments: Tension pneumothorax Do you want consulting provider notified?: Already Contacted 05/07/19 13:17 Consult Physician Routine Consulting Provider: Malvin Marques Consult Reason/Comments: spontaneous left pneumothorax Do you want consulting provider notified?: Yes Primary care physician: Winston Lewis [facility] Course: Final diagnosis -Left-sided spontaneous pneumothorax. Continue with thoravac with suction. Cardiothoracic surgery and Pulmonary are following -Chronic asthma. Not in exacerbation. History of BiPAP use in the past -13 weeks intrauterine -DVT prophylaxis with early ambulation Discharge disposition Patient is being discharged in a stable condition with guarded prognosis to home and will follow-up with primary care provider upon discharge. Patient will also be following up with pulmonary in one week. Patient will follow-up with her [employer] [facility] as scheduled on May 30 or sooner if needed. Total time taken is 35 minutes. History of present illness This is a 24-year-old female with a history of asthma who was recently admitted for left side sharp chest pain, shortness of breath, cough, and pain with deep inspiration and was being closely monitored. Chest x-ray was done showing a mildly left sided tension pneumothorax and patient received a Thoravent of the left lung and was being closely monitored. Patient is also 13 weeks . During hospitalization patient underwent multiple x-rays to closely monitor the progression of the pneumothorax. Most recent chest x-ray today showed there is no increase in size of the small left apical pneumothorax after the chest tube removal. Patient continued to have some pain and discomfort on the left chest wall at the site of the thoravent. Patient will continue with Tylenol in the outpatient setting. Discussed with the patient at length about continuing to use the incentive spirometer at least 10 times every hour while awake. Currently patient's condition is stable with much improvement and is ready for discharge today. Patient denies any chest pain, shortness of breath, or palpitations at this time. Patient has been afebrile. Patient denies any nausea or vomiting and is tolerating diet. Guarded prognosis. On exam vital signs are stable. Temp is 98.6F, pulse is 91, respirations are 18, blood pressure is 122/85, oxygen saturation is 97 % on room air. Cardio S1 and S2 are present. Respiratory system shows diminished breath sounds at the bases with no wheezing or rhonchi noted. Abdomen is soft, nontender. Nervous system shows no focal deficits. Please refer to medication reconciliation sheet for a list of medications. Patient Condition at Discharge: Stable Plan - Discharge Summary Discharge Rx Participant: Yes New Discharge Prescriptions: New HYDROcodone/APAP 5-325MG [[place] 5-325] 1 each PO Q6HR PRN #12 tab PRN Reason: Pain Continue Albuterol Nebulized [Ventolin Nebulized] 2.5 mg INHALATION RT-QID PRN PRN Reason: Shortness Of Breath Montelukast [Singulair] 10 mg PO DAILY Beclomethasone Dipropionate [Qvar 80 mcg] 2 puff INHALATION RT-BID Albuterol Sulfate [Proair Hfa] 2 puff INHALATION RT-QID PRN PRN Reason: Wheezing Acetaminophen Tab [Tylenol] 1,000 mg PO Q6H PRN PRN Reason: Pain Discharge Medication List Albuterol Nebulized [Ventolin Nebulized] 2.5 mg INHALATION RT-QID PRN 05/02/17 [History] Montelukast [Singulair] 10 mg PO DAILY 06/15/18 [History] Beclomethasone Dipropionate [Qvar 80 mcg] 2 puff INHALATION RT-BID 12/30/18 [History] Acetaminophen Tab [Tylenol] 1,000 mg PO Q6H PRN 05/05/19 [History] Albuterol Sulfate [Proair Hfa] 2 puff INHALATION RT-QID PRN 05/05/19 [History] HYDROcodone/APAP 5-325MG [[place] 5-325] 1 each PO Q6HR PRN #12 tab 05/11/19 [Rx] Follow up Appointment(s)/Referral(s): Eliceo Nunez MD [STAFF PHYSICIAN] - 06/05/19 1:00 pm (Pulmonary) Hyacinth Montero MD [Primary Care Provider] - 05/14/19 1:10 pm David Patel NPC [Nurse Practitioner] - 2 Weeks Patient Instructions/Handouts: Spontaneous Pneumothorax (DC) Activity/Diet/Wound Care/Special Instructions: Activity Limited until follow-up Follow-up with primary care provider upon discharge Follow-up with [employer] [facility] upon discharge Follow-up with pulmonary in one week Continue to use incentive spirometer at least 10 times every hour while awake Discharge Disposition: HOME SELF-CARE
== END 2019-05-11 17:28 | disposition home or self-care (01) | DRG 831 ==
LOC: EC 13:06 → 3SCARD 15:44
PROVIDERS: ADMIT Internal Medicine; ATTEND Internal Medicine
DX: O99.511 Diseases of the respiratory system complicating pregnancy, first trimester (principal); J93.0 Spontaneous tension pneumothorax; Z3A.13 13 weeks gestation of pregnancy; J45.50 Severe persistent asthma, uncomplicated; Z79.899 Other long term (current) drug therapy; Z82.5 Family history of asthma and other chronic lower respiratory diseases
CPT/HCPCS: 32551; 36415; 71045; 71046; 76815; 80053; 84484; 85025; 85610; 85730; 93005; 94640; 96374; 99291

== ENCOUNTER 2019-05-18 10:50 | Emergency (ER) | payer OTHER ==
--- NOTE | 2019-05-18 11:29 | ED ---
General Adult HPI - General Chief complaint: Abdominal Pain Stated complaint: Cramping,Spotting Time Seen by Provider: 05/18/19 11:04 Source: patient Mode of arrival: ambulatory Limitations: no limitations - History of Present Illness Initial comments: Dictation was produced using [employer] dictation software. please excuse any grammatical, word or spelling errors. Chief Complaint: 24-year-old female presents with vaginal bleeding in . History of Present Illness: 4-year-old female she has past medical history of asthma. She states she is approximately 15 weeks . She states since yesterday she's been having some suprapubic cramping.. Patient states that given his morning 6:30 AM she began noticing vaginal spotting. Patient has established care with pets salesperson. Patient sees Dr. Majano out of [facility]. She she had an ultrasound demonstrating single live intrauterine 3 days ago. Patient localizes her pain to the suprapubic area. She describes it as crampy and constant without any radiation. The ROS documented in this emergency department record has been reviewed and confirmed by me. Those systems with pertinent positive or negative responses have been documented in the HPI. All other systems are other negative and/or noncontributory. PHYSICAL EXAM: General Impression: Alert and oriented x3, not in acute distress HEENT: Normocephalic atraumatic, extra-ocular movements intact, pupils equal and reactive to light bilaterally, mucous membranes moist. Cardiovascular: Heart regular rate and rhythm, S1&S2 audible, no murmurs, rubs or gallops Chest: Lungs clear to auscultation bilaterally, no rhonchi, no wheeze, no rales Abdomen: Bowel sounds present, abdomen soft, non-tender, non-distended, no organomegaly Musculoskeletal: Pulses present and equal in all extremities, no peripheral edema Motor: no focal deficits noted Neurological: CN II-XII grossly intact, no focal motor or sensory deficits noted Skin: Intact with no visualized rashes Psych: Normal affect and mood ED course: 24-year-old female presents with vaginal bleeding and . All signs upon arrival shows heart rate of 107, rest of vital signs within acceptable limits. evaluation obtained. CBC unremarkable. Metabolic panel is negative. Urinalysis is negative. Transvaginal ultrasound shows single live intrauterine with a heart rate measuring 155. Patient refusing pelvic exam. Patient clear for discharge. Patient counseled on pelvic rest and follow-up with her MEDICAL TECHNICIAN ASSISTANT upon discharge. Patient clear for discharge. Return parameters discussed. All questions answered. Patient is blood type is A+. No indication for rhogam administration. - Related Data Home Medications Medication Instructions Recorded Confirmed Albuterol Nebulized [Ventolin 2.5 mg INHALATION RT-QID PRN 05/02/17 05/05/19 Nebulized] Montelukast [Singulair] 10 mg PO DAILY 06/15/18 05/05/19 Beclomethasone Dipropionate [Qvar 2 puff INHALATION RT-BID 12/30/18 05/05/19 80 mcg] Acetaminophen Tab [Tylenol] 1,000 mg PO Q6H PRN 05/05/19 05/05/19 Albuterol Sulfate [Proair Hfa] 2 puff INHALATION RT-QID PRN 05/05/19 05/05/19 Previous Rx's Medication Instructions Recorded HYDROcodone/APAP 5-325MG [[place] 1 each PO Q6HR PRN #12 tab 05/11/19 5-325] Allergies Allergy/AdvReac Type Severity Reaction Status Date / Time amoxicillin [Amoxicillin] Allergy Anaphylaxis Verified 05/18/19 11:01 Review of Systems ROS Statement: Those systems with pertinent positive or pertinent negative responses have been documented in the HPI. ROS Other: All systems not noted in ROS Statement are negative. Past Medical History Past Medical History: Asthma Additional Past Medical History / Comment(s): Chronic asthma History of Any Multi-Drug Resistant Organisms: None Reported Past Surgical History: Section Additional Past Surgical History / Comment(s): [place] tooth extraction Past Anesthesia/Blood Transfusion Reactions: No Reported Reaction Additional Past Anesthesia/Blood Transfusion Reaction / Comment(s): no anesthesia or blood before Past Psychological History: No Psychological Hx Reported Smoking Status: Never smoker Past Alcohol Use History: None Reported Past Drug Use History: None Reported - Past Family History Father Family Medical History: Asthma Mother Family Medical History: No Reported History General Exam Limitations: no limitations Course Vital Signs 05/18/19 05/18/19 11:00 12:01 Temperature 98.1 F 98.3 F Pulse Rate 107 H 99 Respiratory 20 18 Rate Blood Pressure 138/86 132/76 O2 Sat by Pulse 99 99 Oximetry Medical Decision Making - Lab Data Result diagrams: 05/18/19 11:35 05/18/19 11:35 Lab Results 05/18/19 05/18/19 05/18/19 Range/Units 11:35 11:35 11:58 WBC 8.5 (3.8-10.6) k/uL RBC 4.14 (3.80-5.40) m/uL Hgb 12.8 (11.4-16.0) gm/dL Hct 38.0 (34.0-46.0) % MCV 91.7 (80.0-100.0) fL MCH 30.8 (25.0-35.0) pg MCHC 33.6 (31.0-37.0) g/dL RDW 13.5 (11.5-15.5) % Plt Count 291 (150-450) k/uL Neutrophils % 73 % Lymphocytes % 16 % Monocytes % 5 % Eosinophils % 3 % Basophils % 1 % Neutrophils # 6.2 (1.3-7.7) k/uL Lymphocytes # 1.4 (1.0-4.8) k/uL Monocytes # 0.4 (0-1.0) k/uL Eosinophils # 0.3 (0-0.7) k/uL Basophils # 0.1 (0-0.2) k/uL Sodium 138 (137-145) mmol/L Potassium 4.1 (3.5-5.1) mmol/L Chloride 105 (98-107) mmol/L Carbon Dioxide 25 (22-30) mmol/L Anion Gap 8 mmol/L BUN 5 L (7-17) mg/dL Creatinine 0.51 L (0.52-1.04) mg/dL Est GFR (CKD-EPI)AfAm >90 (>60 ml/min/1.73 sqM) Est GFR (CKD-EPI)NonAf >90 (>60 ml/min/1.73 sqM) Glucose 85 (74-99) mg/dL Calcium 9.8 (8.4-10.2) mg/dL Urine Color Urine Appearance (Clear) Urine pH (5.0-8.0) Ur Specific [place] (1.001-1.035) Urine Protein (Negative) Urine Glucose (UA) (Negative) Urine Ketones (Negative) Urine Blood (Negative) Urine Nitrite (Negative) Urine Bilirubin (Negative) Urine Urobilinogen (<2.0) mg/dL Ur Leukocyte Esterase (Negative) Urine RBC (0-5) /hpf Urine WBC (0-5) /hpf Ur Squamous Epith Cells (0-4) /hpf Amorphous Sediment (None) /hpf Urine Bacteria (None) /hpf Urine Mucus (None) /hpf Blood Type A Positive Blood Type Recheck A Pos Bld Type Recheck Status No Antibody Screen NEGATIVE Spec Expiration Date 05/21/2019235705/18/19 Range/Units 12:30 WBC (3.8-10.6) k/uL RBC (3.80-5.40) m/uL Hgb (11.4-16.0) gm/dL Hct (34.0-46.0) % MCV (80.0-100.0) fL MCH (25.0-35.0) pg MCHC (31.0-37.0) g/dL RDW (11.5-15.5) % Plt Count (150-450) k/uL Neutrophils % % Lymphocytes % % Monocytes % % Eosinophils % % Basophils % % Neutrophils # (1.3-7.7) k/uL Lymphocytes # (1.0-4.8) k/uL Monocytes # (0-1.0) k/uL Eosinophils # (0-0.7) k/uL Basophils # (0-0.2) k/uL Sodium (137-145) mmol/L Potassium (3.5-5.1) mmol/L Chloride (98-107) mmol/L Carbon Dioxide (22-30) mmol/L Anion Gap mmol/L BUN (7-17) mg/dL Creatinine (0.52-1.04) mg/dL Est GFR (CKD-EPI)AfAm (>60 ml/min/1.73 sqM) Est GFR (CKD-EPI)NonAf (>60 ml/min/1.73 sqM) Glucose (74-99) mg/dL Calcium (8.4-10.2) mg/dL Urine Color Yellow Urine Appearance Cloudy H (Clear) Urine pH 7.5 (5.0-8.0) Ur Specific [place] 1.016 (1.001-1.035) Urine Protein Trace H (Negative) Urine Glucose (UA) Negative (Negative) Urine Ketones Trace H (Negative) Urine Blood Negative (Negative) Urine Nitrite Negative (Negative) Urine Bilirubin Negative (Negative) Urine Urobilinogen <2.0 (<2.0) mg/dL Ur Leukocyte Esterase Small H (Negative) Urine RBC 1 (0-5) /hpf Urine WBC 5 (0-5) /hpf Ur Squamous Epith Cells 6 H (0-4) /hpf Amorphous Sediment Rare H (None) /hpf Urine Bacteria Rare H (None) /hpf Urine Mucus Many H (None) /hpf Blood Type Blood Type Recheck Bld Type Recheck Status Antibody Screen Spec Expiration Date Disposition Clinical Impression: Threatened Disposition: HOME SELF-CARE Condition: Good Additional Instructions: follow up with OB Dr. Majano Is patient prescribed a controlled substance at d/c from ED?: No Referrals: Hyacinth Montero MD [Primary Care Provider] - 1-2 days Time of Disposition: 13:22
[2019-05-18 11:59] LABS: Basophils # (A) 0.1 k/uL (0-0.2); Basophils % (A) 1 %; Eosinophils # (A) 0.3 k/uL (0-0.7); Eosinophils % (A) 3 %; HGB 12.8 gm/dL (11.4-16.0); Lymphocytes # (A) 1.4 k/uL (1.0-4.8); Lymphocytes % (A) 16 %; MCH 30.8 pg (25.0-35.0); MCHC 33.6 g/dL (31.0-37.0); MCV 91.7 fL (80.0-100.0); Mean Platelet Volume 6.8; Monocytes # (A) 0.4 k/uL (0-1.0); Monocytes % (A) 5 %; Neutrophils # (A) 6.2 k/uL (1.3-7.7); Neutrophils % (A) 73 %; Platelet Count 291 k/uL (150-450); RBC 4.14 m/uL (3.80-5.40); RDW 13.5 % (11.5-15.5); WBC 8.5 k/uL (3.8-10.6)
[2019-05-18 12:11] LABS: African American GFR (CKD) >90 (>60 ml/min/1.73 sqM); Anion Gap 8 mmol/L; Blood Urea Nitrogen 5 mg/dL (7-17); Calcium 9.8 mg/dL (8.4-10.2); Carbon Dioxide 25 mmol/L (22-30); Chloride 105 mmol/L (98-107); Glucose 85 mg/dL (74-99); Non-African American GFR(CKD) >90 (>60 ml/min/1.73 sqM); Potassium 4.1 mmol/L (3.5-5.1); Sodium 138 mmol/L (137-145)
--- NOTE | 2019-05-18 12:34 | US ---
EXAMINATION TYPE: US OB >= 14 wk fetus DATE OF EXAM: 05/18/2019 COMPARISON: None CLINICAL HISTORY: vag bleeding in pregnancyCramping and spotting. TECHNIQUE: Transabdominal (TA) GESTATIONAL AGE / DATING Physician Established: (15 weeks/3 days) EDC: 11/06/2019 Dates by LMP: (15 weeks/3 days) EDC: 11/06/2019 Dates by First Scan: No previous this is first scan Dates by Current Scan: (16 weeks/0 days) EDC: 11/02/2019 Beta HCG (if available): Not available at this time SURVEY IUP: Single PLACENTA: Anterior PREVIA: No Previa JOANA: 12.5 cm Normal CERVICAL LENGTH (transabdominal: norm > 3.0cm): 3.4 cm BIOMETRY PRESENTATION: Variable BPD: 3.09 cm 15 weeks / 5 days HC: 11.35 cm 15 weeks / 4 days AC: 10.26 cm 16 weeks / 2 days FL: 1.92 cm 15 weeks / 5 days ESTIMATED WEIGHT IN GRAMS: 139.35 grams ESTIMATED WEIGHT IN LBS/OZ: 0 lbs. 5 oz. WEIGHT PERCENTAGE BASED ON ESTABLISHED DATES: 74.2% HC/AC: 1.11 cm Normal FL/AC: 18.68cm Normal HEART RATE: 155 bpm RHYTHM: Normal IMPRESSION: Single viable intrauterine . No abnormal collection identified.
[2019-05-18 12:45] LABS: Amorphous Sediment,Urine Rare /hpf; Appearance,Urine Cloudy (Clear); Bacteria,Urine Rare /hpf; Bilirubin,Urine Negative (Negative); Blood,Urine Negative (Negative); Color,Urine Yellow; Glucose,Urine (UA) Negative (Negative); Ketones,Urine Trace (Negative); Leukocyte Esterase,Urine Small (Negative); Mucus,Urine Many /hpf; Nitrite,Urine Negative (Negative); PH, Urine 7.5 (5.0-8.0); Protein,Urine Trace (Negative); RBC,Urine 1 /hpf (0-5); Specific Gravity,Urine 1.016 (1.001-1.035); Squamous Epithelial Cell,Urine 6 /hpf (0-4); Urobilinogen,Urine <2.0 mg/dL (<2.0); WBC,Urine 5 /hpf (0-5)
[2019-05-18 13:39] VITALS: BP 125/91; PULSE 93; RESP 16; TEMP 98.1
== END 2019-05-18 13:39 | disposition home or self-care (01) ==
LOC: EC 10:50
DX: O20.0 Threatened abortion (principal); O99.512 Diseases of the respiratory system complicating pregnancy, second trimester; Z3A.16 16 weeks gestation of pregnancy; Z88.0 Allergy status to penicillin; Z79.51 Long term (current) use of inhaled steroids; Z98.890 Other specified postprocedural states
CPT/HCPCS: 36415; 76805; 80048; 81001; 85025; 86850; 86900; 86901; 99284

== ENCOUNTER 2019-06-05 09:22 | Emergency (ER) | payer OTHER ==
[2019-06-05 09:29] VITALS: RESP 18
[2019-06-05] MEDS ORDERED: ACETAMINOPHEN TAB 500 MG TAB PO STA (10:10)
[2019-06-05] MEDS ORDERED: SODIUM CHLORIDE 0.9% 1,000 ML IV STA (10:10)
[2019-06-05 10:21] LABS: Basophils % (A) 0 %; Eosinophils # (A) 0.3 k/uL (0-0.7); Eosinophils % (A) 3 %; HCT 34.6 % (34.0-46.0); HGB 11.5 gm/dL (11.4-16.0); Lymphocytes # (A) 1.7 k/uL (1.0-4.8); Lymphocytes % (A) 19 %; MCH 30.6 pg (25.0-35.0); MCHC 33.4 g/dL (31.0-37.0); MCV 91.7 fL (80.0-100.0); Mean Platelet Volume 7.9; Monocytes # (A) 0.3 k/uL (0-1.0); Monocytes % (A) 4 %; Neutrophils # (A) 6.6 k/uL (1.3-7.7); Neutrophils % (A) 73 %; Platelet Count 229 k/uL (150-450); RBC 3.77 m/uL (3.80-5.40); RDW 13.4 % (11.5-15.5)
[2019-06-05] MEDS ORDERED: diphenhydrAMINE 50 MG/ML 1 ML VIAL IVP STA (10:29)
[2019-06-05] MEDS ORDERED: METOCLOPRAMIDE 5 MG/ML 2 ML VIAL IVP STA (10:29)
[2019-06-05 10:37] LABS: ALT 10 U/L (9-52); AST 17 U/L (14-36); African American GFR (CKD) >90 (>60 ml/min/1.73 sqM); Albumin 3.7 g/dL (3.5-5.0); Alkaline Phosphatase 75 U/L (38-126); Anion Gap 9 mmol/L; Blood Urea Nitrogen 6 mg/dL (7-17); Calcium 9.5 mg/dL (8.4-10.2); Carbon Dioxide 21 mmol/L (22-30); Chloride 107 mmol/L (98-107); Glucose 82 mg/dL (74-99); Non-African American GFR(CKD) >90 (>60 ml/min/1.73 sqM); Potassium 3.9 mmol/L (3.5-5.1); Sodium 137 mmol/L (137-145); Total Bilirubin 0.4 mg/dL (0.2-1.3)
[2019-06-05 10:43] LABS: Appearance,Urine Clear (Clear); Bacteria,Urine Rare /hpf; Bilirubin,Urine Negative (Negative); Blood,Urine Negative (Negative); Color,Urine Yellow; Glucose,Urine (UA) Negative (Negative); Ketones,Urine Negative (Negative); Leukocyte Esterase,Urine Trace (Negative); Mucus,Urine Moderate /hpf; Nitrite,Urine Negative (Negative); PH, Urine 6.5 (5.0-8.0); Protein,Urine Trace (Negative); RBC,Urine <1 /hpf (0-5); Specific Gravity,Urine 1.024 (1.001-1.035); Squamous Epithelial Cell,Urine 2 /hpf (0-4); Urobilinogen,Urine <2.0 mg/dL (<2.0)
--- NOTE | 2019-06-05 10:55 | XR ---
EXAMINATION TYPE: XR chest 2V DATE OF EXAM: 06/05/2019 COMPARISON: 05/11/2019 TECHNIQUE: PA and lateral views submitted. HISTORY: Pain FINDINGS: Could not exclude a less than 5% left apical pneumothorax. Lungs are clear with no pleural effusion, focal pneumonia or interstitial edema. Hypertrophic and degenerative change of the spine noted. IMPRESSION: 1. Could not exclude a less than 5% left apical pneumothorax.
--- NOTE | 2019-06-05 11:19 | ED ---
General Adult HPI - General Source: patient, RN notes reviewed Mode of arrival: ambulatory Limitations: no limitations <Jeffrey Cooper - Last Filed: 06/05/19 12:32> <Modesta Malik - Last Filed: 06/05/19 23:37> - General Chief complaint: Headache Stated complaint: 18 wks preg/cramping & headache Time Seen by Provider: 06/05/19 09:46 - History of Present Illness Initial comments: 24-year-old female currently 18 weeks presents to the emergency department for multiple complaints. Patient's first complaint today is headache. She is a starts at the base of her skull and is on the right side of her head. States this started gradually yesterday. Patient states she has had similar headaches before but they usually go after she eats. However this time it did not. She denies any weakness or tingling of any extremities. Denies difficulty walking. Patient also complaining of mild left upper back pain. States she wants to make sure she does not have a pneumothorax that she did recently have a spontaneous pneumothorax. Denies shortness of breath or chest pain. Patient's third complaint is vaginal bleeding. Patient is currently 18 weeks and is having some spotting. This started yesterday. She is also having some associated cramping.Patient has no other complaints at this time including shortness of breath, chest pain, abdominal pain, nausea or vomiting, headache, or visual changes. (Jeffrey Cooper) - Related Data Home Medications Medication Instructions Recorded Confirmed Albuterol Nebulized [Ventolin 2.5 mg INHALATION RT-QID PRN 05/02/17 05/05/19 Nebulized] Montelukast [Singulair] 10 mg PO DAILY 06/15/18 05/05/19 Beclomethasone Dipropionate [Qvar 2 puff INHALATION RT-BID 12/30/18 05/05/19 80 mcg] Acetaminophen Tab [Tylenol] 1,000 mg PO Q6H PRN 05/05/19 05/05/19 Albuterol Sulfate [Proair Hfa] 2 puff INHALATION RT-QID PRN 05/05/19 05/05/19 Previous Rx's Medication Instructions Recorded HYDROcodone/APAP 5-325MG [[place] 1 each PO Q6HR PRN #12 tab 05/11/19 5-325] Nitrofurantoin Monohyd/M-Cryst 100 mg PO Q12HR #14 cap 06/05/19 [Macrobid] Allergies Allergy/AdvReac Type Severity Reaction Status Date / Time amoxicillin [Amoxicillin] Allergy Anaphylaxis Verified 05/18/19 11:01 Review of Systems ROS Other: All systems not noted in ROS Statement are negative. <Jeffrey Cooper P - Last Filed: 06/05/19 12:32> ROS Other: All systems not noted in ROS Statement are negative. <Modesta Malik - Last Filed: 06/05/19 23:37> ROS Statement: Those systems with pertinent positive or pertinent negative responses have been documented in the HPI. Past Medical History Past Medical History: Asthma Additional Past Medical History / Comment(s): Chronic asthma History of Any Multi-Drug Resistant Organisms: None Reported Past Surgical History: Section Additional Past Surgical History / Comment(s): [place] tooth extraction Past Anesthesia/Blood Transfusion Reactions: No Reported Reaction Additional Past Anesthesia/Blood Transfusion Reaction / Comment(s): no anesthesia or blood before Past Psychological History: No Psychological Hx Reported Smoking Status: Never smoker Past Alcohol Use History: None Reported Past Drug Use History: None Reported - Past Family History Father Family Medical History: Asthma Mother Family Medical History: No Reported History <Jeffrey Cooper P - Last Filed: 06/05/19 12:32> General Exam Limitations: no limitations General appearance: alert, in no apparent distress Head exam: Present: atraumatic, normocephalic, normal inspection Eye exam: Present: normal appearance, PERRL, EOMI. Absent: scleral icterus, conjunctival injection, periorbital swelling ENT exam: Present: normal exam, normal oropharynx, mucous membranes moist, TM's normal bilaterally, normal external ear exam Neck exam: Present: normal inspection, full ROM. Absent: tenderness, meningismus, lymphadenopathy Respiratory exam: Present: normal lung sounds bilaterally. Absent: respiratory distress, wheezes, rales, rhonchi, stridor Cardiovascular Exam: Present: regular rate, normal rhythm, normal heart sounds. Absent: systolic murmur, diastolic murmur, rubs, gallop, clicks GI/Abdominal exam: Present: soft, normal bowel sounds. Absent: distended, tenderness, guarding, rebound, rigid Neurological exam: Present: alert, oriented X3, normal gait, other (GCS 15) <Jeffrey Cooper - Last Filed: 06/05/19 12:32> Course Vital Signs 06/05/19 06/05/19 09:23 12:13 Temperature 98.0 F 97.6 F Pulse Rate 78 97 Respiratory 18 18 Rate Blood Pressure 151/82 108/62 O2 Sat by Pulse 100 98 Oximetry Medical Decision Making - Lab Data Result diagrams: 06/05/19 09:50 06/05/19 09:50 <Jeffrey Cooper - Last Filed: 06/05/19 12:32> - Lab Data Result diagrams: 06/05/19 09:50 06/05/19 09:50 <Modesta Malik - Last Filed: 06/05/19 23:37> - Medical Decision Making Patient is noted to have a normal ultrasound on May 18 when she had similar complaints. Vitals are stable. CBC CMP unremarkable. Patient given some fluids. Urine does show rare bacteria, this will be treated given patient is . Chest x-ray was obtained which shows possibly a less than 5% left apical pneumothorax. I did review previous x-ray with Dr. Malik. It appears that previous pneumothorax is resolving. Patient is not in any respiratory distress or short of breath. Ultrasound was obtained given that patient is having some bleeding in . This does show a viable at 18 weeks. Trace amount of fluid in the endocervical canal. Patient is A positive blood type. Patient was given fluids Tylenol Reglan and Benadryl for her headache. She states that headache is much better. At this time patient is stable for discharge. She can follow up with Dr. Majano her [facility] outpatient. She will return here if she has any worsening symptoms. (Jeffrey Cooper) I was available for consultation in the emergency department. The history and physical exam were done by the midlevel provider. I was consulted for this patients care. I reviewed the case with the midlevel provider and based on their presentation of the patient, I agree with the assessment, medical decision making and plan of care as documented. Chart was dictated using [employer] dictation software. Attempts were made to correct any dictation errors however some typographical errors may persist. (Modesta Malik) - Lab Data Lab Results 06/05/19 06/05/19 06/05/19 Range/Units 09:50 09:50 09:50 WBC 9.0 (3.8-10.6) k/uL RBC 3.77 L (3.80-5.40) m/uL Hgb 11.5 (11.4-16.0) gm/dL Hct 34.6 (34.0-46.0) % MCV 91.7 (80.0-100.0) fL MCH 30.6 (25.0-35.0) pg MCHC 33.4 (31.0-37.0) g/dL RDW 13.4 (11.5-15.5) % Plt Count 229 (150-450) k/uL Neutrophils % 73 % Lymphocytes % 19 % Monocytes % 4 % Eosinophils % 3 % Basophils % 0 % Neutrophils # 6.6 (1.3-7.7) k/uL Lymphocytes # 1.7 (1.0-4.8) k/uL Monocytes # 0.3 (0-1.0) k/uL Eosinophils # 0.3 (0-0.7) k/uL Basophils # 0.0 (0-0.2) k/uL Sodium 137 (137-145) mmol/L Potassium 3.9 (3.5-5.1) mmol/L Chloride 107 (98-107) mmol/L Carbon Dioxide 21 L (22-30) mmol/L Anion Gap 9 mmol/L BUN 6 L (7-17) mg/dL Creatinine 0.48 L (0.52-1.04) mg/dL Est GFR (CKD-EPI)AfAm >90 (>60 ml/min/1.73 sqM) Est GFR (CKD-EPI)NonAf >90 (>60 ml/min/1.73 sqM) Glucose 82 (74-99) mg/dL Calcium 9.5 (8.4-10.2) mg/dL Total Bilirubin 0.4 (0.2-1.3) mg/dL AST 17 (14-36) U/L ALT 10 (9-52) U/L Alkaline Phosphatase 75 (38-126) U/L Total Protein 7.0 (6.3-8.2) g/dL Albumin 3.7 (3.5-5.0) g/dL Urine Color Yellow Urine Appearance Clear (Clear) Urine pH 6.5 (5.0-8.0) Ur Specific [place] 1.024 (1.001-1.035) Urine Protein Trace H (Negative) Urine Glucose (UA) Negative (Negative) Urine Ketones Negative (Negative) Urine Blood Negative (Negative) Urine Nitrite Negative (Negative) Urine Bilirubin Negative (Negative) Urine Urobilinogen <2.0 (<2.0) mg/dL Ur Leukocyte Esterase Trace H (Negative) Urine RBC <1 (0-5) /hpf Urine WBC 2 (0-5) /hpf Ur Squamous Epith Cells 2 (0-4) /hpf Urine Bacteria Rare H (None) /hpf Urine Mucus Moderate H (None) /hpf Disposition Is patient prescribed a controlled substance at d/c from ED?: No Time of Disposition: 12:32 <Jeffrey Cooper - Last Filed: 06/05/19 12:32> <Modesta Malik - Last Filed: 06/05/19 23:37> Clinical Impression: Headache Disposition: HOME SELF-CARE Condition: Good Instructions (If sedation given, give patient instructions): Acute Headache (ED) Additional Instructions: Please take Tylenol for pain. Please follow-up with primary care in 1-2 days. Follow-up with [facility] as well for spotting. Return to the emergency Department if patient has any worsening symptoms. Prescriptions: Nitrofurantoin Monohyd/M-Cryst [Macrobid] 100 mg PO Q12HR #14 cap Referrals: Hyacinth Montero MD [Primary Care Provider] - 1-2 days
--- NOTE | 2019-06-05 12:02 | US ---
EXAMINATION TYPE: US OB >= 14 wk fetus DATE OF EXAM: 06/05/2019 COMPARISON: US CLINICAL HISTORY: spotting, cramping TECHNIQUE: Transvaginal (TV) and Transabdominal (TA) GESTATIONAL AGE / DATING Physician Established: (18 weeks/0 days) EDC: 11/06/19 Dates by LMP: (18 weeks/0 days) EDC: 11/06/19 Dates by First Scan: No previous at this hospital Dates by Current Scan: (18 weeks/3 days) EDC: 11/03/19 Beta HCG (if available): Not available at this time SURVEY IUP: Single PLACENTA: Posterior PREVIA: JOANA: cm CERVICAL LENGTH (transabdominal: norm > 3.0cm): unable to measure transabdominal CERVICAL LENGTH (transvaginal: norm> 2.5cm): 3.4 cm, 1mm of fluid seen in endocervical canal (Supplemental transvaginal imaging performed to verify cervical length.) BIOMETRY PRESENTATION: Vertex BPD: 4.2 cm 18 weeks / 5 days HC: 16.1 cm 18 weeks / 4 days AC: 13.0 cm 18 weeks / 4 days FL: 2.7 cm 18 weeks / 3 days ESTIMATED WEIGHT IN GRAMS: 243 grams ESTIMATED WEIGHT IN LBS/OZ: 0 lbs. 9 oz. WEIGHT PERCENTAGE BASED ON ESTABLISHED DATES: 76 % HC/AC: 1.2 FL/AC: 21.1 HEART RATE: 153 bpm RHYTHM: Normal IMPRESSION: Viable of 18 weeks 3 days heart rate 153 beats per minutes. Trace amount of fluid in the en docervical canal.
[2019-06-05 12:14] VITALS: BP 108/62; PULSE 97; TEMP 97.6
== END 2019-06-05 12:51 | disposition home or self-care (01) ==
LOC: EC 09:22
DX: O99.352 Diseases of the nervous system complicating pregnancy, second trimester (principal); R51 Headache; O99.512 Diseases of the respiratory system complicating pregnancy, second trimester; J93.9 Pneumothorax, unspecified; J45.909 Unspecified asthma, uncomplicated; O26.892 Other specified pregnancy related conditions, second trimester; N93.9 Abnormal uterine and vaginal bleeding, unspecified; Z3A.18 18 weeks gestation of pregnancy; Z88.0 Allergy status to penicillin; Z79.51 Long term (current) use of inhaled steroids
CPT/HCPCS: 36415; 80053; 85025; 81001; 71046; 76805; 76817; 99284; 96374; 96375; 96361; J1200; J2765

== ENCOUNTER 2019-07-23 06:45 | Outpatient (CLI) | payer OTHER ==
[2019-07-23 07:21] VITALS: BP 138/94; PULSE 91; RESP 18; TEMP 97.6
[2019-07-23 08:00] LABS: Appearance,Urine Clear (Clear); Bacteria,Urine Rare /hpf; Bilirubin,Urine Negative (Negative); Blood,Urine Negative (Negative); Color,Urine Light Yellow; Glucose,Urine (UA) Negative (Negative); Ketones,Urine Negative (Negative); Leukocyte Esterase,Urine Small (Negative); Mucus,Urine Rare /hpf; Nitrite,Urine Negative (Negative); PH, Urine 6.5 (5.0-8.0); Protein,Urine Negative (Negative); RBC,Urine <1 /hpf (0-5); Specific Gravity,Urine 1.008 (1.001-1.035); Squamous Epithelial Cell,Urine 1 /hpf (0-4); Urobilinogen,Urine <2.0 mg/dL (<2.0); WBC,Urine 1 /hpf (0-5)
--- NOTE | 2019-07-24 11:33 | P.MSEPDOC ---
Presenting Problems - Arrival Data Date of Arrival on Unit: 07/23/19 Time of Arrival on Unit: 06:45 Mode of Transport: Ambulatory - Complaint OB-Reason for Admission/Chief Complaint: Pain Comment: back pain,dizziness, cramping since around 0200. Medical History - Information : 5 Para: 2 Term: 1 : 1 Abortions: Spontaneous or Elective: 2 Number of Living Children: 2 - Gestational Age Gestational Age by GLYNN (wks/days): 24 Weeks and 6 Days Review of Systems - Review of Systems Constitutional: No problems Breast: No problems ENT: No problems Cardiovascular: No problems Respiratory: No problems Gastrointestinal: No problems Genitourinary: No problems Musculoskeletal: No problems Neurological: No problems Skin: No problems Vital Signs - Temperature Temperature: 97.6 F Temperature Source: Temporal Artery Scan - Pulse Right Pulse Rate: 91 Pulse Assessment Method: Pulse Oximetry - Respirations Respiratory Rate: 18 Oxygen Delivery Method: Room Air O2 Sat by Pulse Oximetry: 100 - Blood Pressure Right Arm Blood Pressure: 138/94 Blood Pressure Mean: 108 Blood Pressure Source: Automatic Cuff Medical Screen Scoring (Pre) - Cervical Exam Dilation: Exam Deferred Effacement: Exam Deferred Membranes: Intact - Uterine Contractions Frequency: N/A Duration: N/A Intensity: N/A - Maternal Vital Signs Maternal Temperature: N/A Maternal Blood Pressure: Diastolic > 89 = 1 Signs of Preeclampsia: Epigastric Pain = 1 Maternal Respirations: N/A - Maternal Trauma Maternal Trauma: N/A - Assessment - Baby A Baseline FHR: 150 Heart Rate - NICHD Category: Category I (Normal) = 0 NST: Reactive Position: N/A Station: N/A - Total Score - Baby A Total Score - Baby A: 2 - Total Score - Baby B Total Score - Baby B: 2 - Total Score - Baby C Total Score - Baby C: 2 - Level of Risk - Baby A Level of Risk - Baby A: Low (0-5) - Level of Risk - Baby B Level of Risk - Baby B: Low (0-5) - Level of Risk - Baby C Level of Risk - Baby C: Low (0-5) Physician Notification (Pre) - Physician Notified Physician Notified Date: 07/23/19 Physician Notified Time: 06:58 New Order Received: Yes (UA) Medical Screen Scoring (Post) - Cervical Exam Dilation: Exam Deferred Effacement: Exam Deferred Membranes: Intact - Uterine Contractions Frequency: N/A Duration: N/A - Maternal Vital Signs Maternal Temperature: N/A Maternal Blood Pressure: N/A Signs of Preeclampsia: N/A Maternal Respirations: N/A - Maternal Trauma Maternal Trauma: N/A - Assessment - Baby A Heart Rate: 150 Heart Rate - NICHD Category: Category I (Normal) = 0 NST: Reactive Position: N/A Station: N/A - Total Score Total Score - Baby A: 0 Total Score - Baby B: 0 Total Score - Baby C: 0 - Post Treatment Level of Risk Post Treatment Level of Risk - Baby A: Low (0-5) Post Treatment Level of Risk - Baby B: Low (0-5) Post Treatment Level of Risk - Baby C: Low (0-5) Physician Notification (Post) - Physician Notified Physician Notified Date: 07/23/19 Physician Notified Time: 08:05 Physician/Practitioner Notified:: Kevin Disposition - Disposition OB Disposition: Discharge to home Discharge Date: 07/23/19 Discharge Time: 08:10 I agree with the RN Medical Screening Exam: Yes Risk & Benefit of care provided described in d/c instruction: Yes Diagnosis: RELATED CONDITIONS, UNSPECIFIED, SECOND TRIMESTER
== END 2019-07-23 08:13 | disposition home or self-care (01) ==
LOC: FBPOP 06:45
PROVIDERS: ATTEND Obstetrics & Gynecology
DX: O26.92 Pregnancy related conditions, unspecified, second trimester (principal); M54.9 Dorsalgia, unspecified; R42 Dizziness and giddiness; R25.2 Cramp and spasm; Z3A.24 24 weeks gestation of pregnancy
CPT/HCPCS: 81001; G0463; 99213

== ENCOUNTER → 2019-08-23 | Outpatient (CLI) | payer OTHER ==
--- NOTE | 2019-08-23 16:50 | US ---
EXAMINATION TYPE: US OB >= 14 wk fetus DATE OF EXAM: 08/23/2019 COMPARISON: None CLINICAL HISTORY: Z34.90 encounter for supervision,normal pregnancyGrowth TECHNIQUE: Transabdominal (TA) GESTATIONAL AGE / DATING Physician Established: (29 weeks/2 days) EDC: 11/06/2019 Dates by LMP: (29 weeks/2 days) EDC: Dates by First Scan: (18 weeks/3 days) EDC: 11/03/2019 Dates by Current Scan: (29 weeks/0 days) EDC: 11/08/2019 SURVEY IUP: Single PLACENTA: Anterior PREVIA: No Previa JOANA: 14.29 cm Normal (Supplemental transvaginal imaging performed to verify cervical length.) BIOMETRY PRESENTATION: Vertex BPD: 7.77 cm 31 weeks / 1 days HC: 28.74 cm 31 weeks / 4 days AC: 25.03 cm 29 weeks / 2 days FL: 5.09 cm 27 weeks / 2 days ESTIMATED WEIGHT IN GRAMS: 1311 grams ESTIMATED WEIGHT IN LBS/OZ: 2 lbs. 14 oz. WEIGHT PERCENTAGE BASED ON ESTABLISHED DATES: 25.8% HC/AC: 1.15 cm Normal FL/AC: 20.35cm Normal HEART RATE: 172 bpm RHYTHM: Normal IMPRESSION: Single live intrauterine with a sonographic age of 21 weeks and 0 days and jacinda mated date of delivery of 11/08/2019, concordant with menstrual age. Weight percentage based on establ ished dates of 25.8%.
== END | disposition home or self-care (01) ==
LOC: RADUSWWP 15:27
PROVIDERS: ATTEND Obstetrics & Gynecology
DX: Z34.90 Encounter for supervision of normal pregnancy, unspecified, unspecified trimester (principal); Z3A.21 21 weeks gestation of pregnancy
CPT/HCPCS: 76805

== ENCOUNTER 2019-09-20 03:15 | Outpatient (CLI) | payer OTHER ==
[2019-09-20] MEDS ORDERED: LACTATED RINGERS 1,000 ML IV SCH (03:45)
[2019-09-20 04:05] LABS: Appearance,Urine Clear (Clear); Bilirubin,Urine Negative (Negative); Blood,Urine Negative (Negative); Color,Urine Colorless; Glucose,Urine (UA) Negative (Negative); Ketones,Urine Negative (Negative); Leukocyte Esterase,Urine Negative (Negative); Nitrite,Urine Negative (Negative); PH, Urine 7.5 (5.0-8.0); Protein,Urine Negative (Negative); Specific Gravity,Urine 1.005 (1.001-1.035); Urobilinogen,Urine <2.0 mg/dL (<2.0)
[2019-09-20] MEDS: NIFEdipine 10 MG CAP PO PRN ×3 (04:25→05:06)
[2019-09-20 04:28] LABS: Basophils % (A) 0 %; Eosinophils # (A) 0.2 k/uL (0-0.7); Eosinophils % (A) 2 %; HCT 30.7 % (34.0-46.0); HGB 9.7 gm/dL (11.4-16.0); Hypochromasia Moderate; Lymphocytes # (A) 1.8 k/uL (1.0-4.8); Lymphocytes % (A) 16 %; MCH 26.5 pg (25.0-35.0); MCHC 31.7 g/dL (31.0-37.0); MCV 83.6 fL (80.0-100.0); Mean Platelet Volume 8.3; Monocytes # (A) 0.7 k/uL (0-1.0); Monocytes % (A) 6 %; Neutrophils % (A) 73 %; Platelet Count 222 k/uL (150-450); RBC 3.67 m/uL (3.80-5.40); RDW 13.4 % (11.5-15.5)
[2019-09-20 04:29] LABS: Amphetamine Screen,Urine Not Detected (NotDetected); Barbiturate Screen,Urine Not Detected (NotDetected); Benzodiazepines Screen,Urine Not Detected (NotDetected); Cocaine Screen,Urine Not Detected (NotDetected); Methadone Screen, Urine Not Detected (NotDetected); Opiate Screen,Urine Not Detected (NotDetected); Oxycodone Screen, Urine Not Detected (NotDetected); Phencyclidine Screen,Urine Not Detected (NotDetected); Tricyclic Antidepressant,Urine Not Detected (NotDetected); Urn Cannabinoid Scrn Not Detected (NotDetected)
[2019-09-20 04:30] LABS: Protein/Creatinine Ratio,Urine 0.949
[2019-09-20 04:47] LABS: ALT 14 U/L (4-34); AST 29 U/L (14-36); African American GFR (CKD) >90 (>60 ml/min/1.73 sqM); Blood Urea Nitrogen 5 mg/dL (7-17); Non-African American GFR(CKD) >90 (>60 ml/min/1.73 sqM); Uric Acid 2.4 mg/dL (3.7-7.4)
[2019-09-20 04:55] LABS: INR 0.9 (<1.2); Partial Thromboplastin Time 22.1 sec (22.0-30.0); Prothrombin Time 9.6 sec (9.0-12.0)
[2019-09-20 06:04] VITALS: RESP 16
[2019-09-20 06:07] VITALS: BP 122/62; PULSE 121; TEMP 98.3
--- NOTE | 2019-11-04 07:48 | P.MSEPDOC ---
Presenting Problems - Arrival Data Date of Arrival on Unit: 09/20/19 Time of Arrival on Unit: 03:15 Mode of Transport: Wheelchair - Complaint OB-Reason for Admission/Chief Complaint: Possible Onset of Labor Medical History - Information : 5 Para: 2 Term: 1 : 1 Abortions: Spontaneous or Elective: 2 Number of Living Children: 2 - Gestational Age Gestational Age by GLYNN (wks/days): 33 Weeks and 2 Days - History Complications: Prior Review of Systems - Review of Systems Constitutional: No problems Breast: No problems ENT: No problems Cardiovascular: No problems Respiratory: No problems Gastrointestinal: No problems Genitourinary: No problems Musculoskeletal: No problems Neurological: No problems Skin: No problems Vital Signs - Temperature Temperature: 98.3 F Temperature Source: Oral - Pulse Right Brachial Pulse Rate: 121 Pulse Assessment Method: Automatic Cuff - Respirations Respiratory Rate: 16 Oxygen Delivery Method: Room Air O2 Sat by Pulse Oximetry: 100 - Blood Pressure Right Arm Blood Pressure: 122/62 Blood Pressure Mean: 82 Blood Pressure Source: Automatic Cuff Medical Screen Scoring (Pre) - Cervical Exam Dilation: 1-3 cm = 1 Membranes: Intact - Uterine Contractions Frequency: < 36 weeks = 6 Duration: N/A Intensity: Contraction palpated strong = 1 - Maternal Vital Signs Maternal Temperature: N/A Maternal Blood Pressure: Systolic >139 = 2 Signs of Preeclampsia: N/A Maternal Respirations: N/A - Maternal Trauma Maternal Trauma: N/A - Assessment - Baby A Baseline FHR: 150 Heart Rate - NICHD Category: Category I (Normal) = 0 NST: Reactive Position: N/A Station: N/A - Total Score - Baby A Total Score - Baby A: 10 - Total Score - Baby B Total Score - Baby B: 10 - Total Score - Baby C Total Score - Baby C: 10 - Level of Risk - Baby A Level of Risk - Baby A: High (10+) - Level of Risk - Baby B Level of Risk - Baby B: High (10+) - Level of Risk - Baby C Level of Risk - Baby C: High (10+) Physician Notification (Pre) - Physician Notified Physician Notified Date: 09/20/19 Physician Notified Time: 03:45 New Order Received: Yes - Notification Comment Comment: Dr. Parra given report on pt. Pt c/o. VS not WNL. Elevated BPs and elevated. pulse. Pt use of inhaler 15 minutes before arrival r/t asthma. FFN collected.Vag exam. performed . Amnisure negative. Hx of delivery at 27 weeks via P C/S. r/t abruption. UA sent. Reactive Nst. Contractions q2-3 minutes. Orders recieved to IV. hydrate with 1L LR. To send FFN. Collect PIH labs. Collect Urine drug screen. Initiate. procardia protocol. Medical Screen Scoring (Post) - Cervical Exam Dilation: 1-3 cm = 1 Membranes: Intact - Uterine Contractions Frequency: N/A Duration: N/A Intensity: N/A - Maternal Vital Signs Maternal Temperature: N/A Maternal Blood Pressure: N/A Signs of Preeclampsia: N/A Maternal Respirations: N/A - Pain Assessment Pain Location and Character: Right, Lower, Back, Hip Pain Scale Used: Numeric (1 - 10) Pain Intensity: 3 Pain Description: *Acute, Shooting Pain Frequency: Intermittent Pain Duration Units: Minutes Pain Behavior: None Exhibited - Maternal Trauma Maternal Trauma: N/A - Assessment - Baby A Heart Rate: 160 Heart Rate - NICHD Category: Category I (Normal) = 0 NST: Reactive Position: N/A Station: N/A - Total Score Total Score - Baby A: 1 Total Score - Baby B: 1 Total Score - Baby C: 1 - Post Treatment Level of Risk Post Treatment Level of Risk - Baby A: Low (0-5) Post Treatment Level of Risk - Baby B: Low (0-5) Post Treatment Level of Risk - Baby C: Low (0-5) Physician Notification (Post) - Physician Notified Physician Notified Date: 09/20/19 Physician Notified Time: 05:42 Physician/Practitioner Notified:: Dr. Parra New Order Received: Yes - Notification Comment Comment: Dr. Parra given report on pt lab results. No change in vag exam. BPs WNL. Pulse still elevated but has decreased from 120s to 90s-100s. FFN negative. No. complaints of contractions per pt. Orders recieved to d/c pt to home. To educate pt to. follow up with Dr. Majano. Disposition - Disposition OB Disposition: Discharge to home Discharge Date: 09/20/19 Discharge Time: 05:50 I agree with the RN Medical Screening Exam: Yes Risk & Benefit of care provided described in d/c instruction: Yes Diagnosis: contractions, hypertension
== END 2019-09-20 05:50 | disposition home or self-care (01) ==
LOC: FBPOP 03:15
PROVIDERS: ATTEND Obstetrics & Gynecology
DX: O99.89 Other specified diseases and conditions complicating pregnancy, childbirth and the puerperium (principal); O60.03 Preterm labor without delivery, third trimester; I10 Essential (primary) hypertension; Z3A.33 33 weeks gestation of pregnancy
CPT/HCPCS: 59025; 96360; 84112; 82731; 82570; 84156; 82565; 84450; 84460; 84520; 84550; 85025; 85384; 85610; 85730; 81003; 80306; G0463; 99214

== ENCOUNTER 2019-10-04 23:58 | Emergency (ER) | payer OTHER ==
[2019-10-05 00:07] VITALS: RESP 20; TEMP 98.2
--- NOTE | 2019-10-05 00:27 | ED ---
General Adult HPI - General Chief complaint: ENT Stated complaint: Nose Bleed Time Seen by Provider: 10/05/19 00:12 Source: patient Mode of arrival: ambulatory Limitations: no limitations - History of Present Illness Initial comments: 24-year-old female patient presents to the emergency department today for evaluation of nosebleed. Patient states her last 2 hours she is having bleeding from the right nostril. Patient is 35 weeks . She is with two elective abortions. States that she does have a slight headache and has been having some lightheadedness throughout the day. Patient has been receiving care with Dr. Majano in [place]. She denies any current abdominal pain, vaginal bleeding, or vaginal discharge. She states she has had only one nose bleed in the past. Denies any current upper respiratory symptoms. Denies history of high blood pressure. Patient denies any recent rash, fever, chills, cough, shortness of breath, chest pain, nausea, vomiting, diarrhea, constipation, back pain, numbness, tingling, dizziness, weakness, hematuria, dysuria, urinary urgency, urinary frequency, headache, visual changes, or any other complaints. - Related Data Home Medications Medication Instructions Recorded Confirmed Albuterol Sulfate [Proair Hfa] 2 puff INHALATION RT-QID PRN 05/05/19 10/05/19 Allergies Allergy/AdvReac Type Severity Reaction Status Date / Time amoxicillin [Amoxicillin] Allergy Anaphylaxis Verified 10/05/19 00:53 Review of Systems ROS Statement: Those systems with pertinent positive or pertinent negative responses have been documented in the HPI. ROS Other: All systems not noted in ROS Statement are negative. Past Medical History Past Medical History: Asthma Additional Past Medical History / Comment(s): Chronic asthma History of Any Multi-Drug Resistant Organisms: None Reported Past Surgical History: Section Additional Past Surgical History / Comment(s): [place] tooth extraction Past Anesthesia/Blood Transfusion Reactions: No Reported Reaction Additional Past Anesthesia/Blood Transfusion Reaction / Comment(s): no anesthesia or blood before Past Psychological History: No Psychological Hx Reported Smoking Status: Never smoker Past Alcohol Use History: None Reported Past Drug Use History: None Reported - Past Family History Father Family Medical History: Asthma Mother Family Medical History: No Reported History General Exam Limitations: no limitations General appearance: alert, in no apparent distress, other (This is a well- developed, well-nourished adult female patient in no acute distress. Vital signs upon presentation are temperature 98.2F, pulse 94, respirations 20, blood pressure 145/96, pulse ox 100% on room air.) Eye exam: Present: normal appearance, PERRL, EOMI. Absent: scleral icterus, conjunctival injection, periorbital swelling ENT exam: Present: normal exam, normal oropharynx, mucous membranes moist Respiratory exam: Present: normal lung sounds bilaterally. Absent: respiratory distress, wheezes, rales, rhonchi, stridor Cardiovascular Exam: Present: regular rate, normal rhythm, normal heart sounds. Absent: systolic murmur, diastolic murmur, rubs, gallop, clicks GI/Abdominal exam: Present: normal bowel sounds, other (Gravid abdomen). Absent : distended, tenderness, guarding, rebound, rigid Neurological exam: Present: alert, oriented X3, CN II-XII intact Psychiatric exam: Present: normal affect, normal mood Skin exam: Present: warm, dry, intact, normal color. Absent: rash Course Vital Signs 10/05/19 10/05/19 00:03 00:26 Temperature 98.2 F Pulse Rate 94 93 Respiratory 20 Rate Blood Pressure 145/96 150/102 O2 Sat by Pulse 100 Oximetry Medical Decision Making - Medical Decision Making 24-year-old female patient presented to the emergency department today for evaluation of nosebleed. Physical examination reveals no bleeding from the right or left nostril. Patient blood pressure was elevated around 150/105 here in the department upon 2 separate reads. As she is not currently having any nasal bleeding we will discharge her to proceed immediately to the labor and delivery in for further evaluation of possible preeclampsia. She verbalizes understanding and agrees with this plan. Disposition Clinical Impression: Epistaxis, Elevated blood pressure affecting in third trimester, antepartum Disposition: HOME SELF-CARE Condition: Fair Instructions (If sedation given, give patient instructions): Nosebleed (ED) Additional Instructions: Proceed immediately to the labor and delivery unit at this facility for further evaluation of your elevated blood pressure. If your nose starts bleeding again once you are discharged from their unit, you can be seen again in the emergency department. Return for any other new, worsening, or concerning symptoms. Is patient prescribed a controlled substance at d/c from ED?: No Referrals: Hyacinth Montero MD [Primary Care Provider] - 1-2 days Time of Disposition: 00:27
[2019-10-05 00:32] VITALS: BP 150/102; PULSE 93
== END 2019-10-05 00:36 | disposition home or self-care (01) ==
LOC: EC 23:58
DX: O16.3 Unspecified maternal hypertension, third trimester (principal); O99.89 Other specified diseases and conditions complicating pregnancy, childbirth and the puerperium; R04.0 Epistaxis; Z3A.35 35 weeks gestation of pregnancy; Z88.0 Allergy status to penicillin
CPT/HCPCS: 99283

== ENCOUNTER 2019-10-05 00:49 | Outpatient (CLI) | payer OTHER ==
[2019-10-05 01:10] LABS: Appearance,Urine Clear (Clear); Bilirubin,Urine Negative (Negative); Blood,Urine Negative (Negative); Color,Urine Light Yellow; Glucose,Urine (UA) Trace (Negative); Ketones,Urine Negative (Negative); Leukocyte Esterase,Urine Small (Negative); Mucus,Urine Rare /hpf; Nitrite,Urine Negative (Negative); PH, Urine 6.5 (5.0-8.0); Protein,Urine Negative (Negative); RBC,Urine <1 /hpf (0-5); Specific Gravity,Urine 1.013 (1.001-1.035); Squamous Epithelial Cell,Urine 1 /hpf (0-4); Urobilinogen,Urine <2.0 mg/dL (<2.0); WBC,Urine 2 /hpf (0-5)
[2019-10-05 02:42] LABS: Basophils % (A) 0 %; Eosinophils # (A) 0.2 k/uL (0-0.7); Eosinophils % (A) 2 %; HGB 9.5 gm/dL (11.4-16.0); Hypochromasia Slight; Lymphocytes # (A) 1.6 k/uL (1.0-4.8); Lymphocytes % (A) 18 %; MCH 25.9 pg (25.0-35.0); MCHC 31.7 g/dL (31.0-37.0); MCV 81.7 fL (80.0-100.0); Monocytes # (A) 0.6 k/uL (0-1.0); Monocytes % (A) 6 %; Neutrophils # (A) 6.2 k/uL (1.3-7.7); Neutrophils % (A) 71 %; Platelet Count 229 k/uL (150-450); RBC 3.67 m/uL (3.80-5.40); RDW 14.2 % (11.5-15.5); WBC 8.7 k/uL (3.8-10.6)
[2019-10-05 02:46] VITALS: TEMP 98.5
[2019-10-05 02:50] LABS: ALT 10 U/L (4-34); AST 21 U/L (14-36); African American GFR (CKD) >90 (>60 ml/min/1.73 sqM); Blood Urea Nitrogen 6 mg/dL (7-17); LDH 462 U/L (313-618); Non-African American GFR(CKD) >90 (>60 ml/min/1.73 sqM); Uric Acid 2.9 mg/dL (3.7-7.4)
[2019-10-05 03:05] LABS: Protein/Creatinine Ratio,Urine 0.257
[2019-10-05] MEDS ORDERED: hydrALAZINE HCL 20 MG/ML 1 ML VIAL IVP PRN ×2 (03:31)
[2019-10-05] MEDS ORDERED: LACTATED RINGERS 1,000 ML IV SCH (03:45)
[2019-10-05 05:24] VITALS: BP 133/88; PULSE 86; RESP 15
--- NOTE | 2019-10-05 08:40 | P.MSEPDOC ---
Presenting Problems - Arrival Data Date of Arrival on Unit: 10/05/19 Time of Arrival on Unit: 00:49 Mode of Transport: Wheelchair - Complaint OB-Reason for Admission/Chief Complaint: Headache, Elevated Blood Pressure Comment: pt brought up from ER after having nose bleed for 2 hours to be assessed for elevated bp's Medical History - Information : 5 Para: 2 Term: 1 : 1 Abortions: Spontaneous or Elective: 2 Number of Living Children: 2 - Gestational Age Gestational Age by GLYNN (wks/days): 35 Weeks and 3 Days - History Complications: Prior , Prior Review of Systems - Review of Systems Constitutional: No problems Breast: No problems ENT: No problems Cardiovascular: No problems Respiratory: No problems Gastrointestinal: No problems Genitourinary: No problems Musculoskeletal: No problems Neurological: No problems Skin: No problems Vital Signs - Temperature Temperature: 98.5 F Temperature Source: Temporal Artery Scan - Pulse Right Brachial Pulse Rate: 86 Pulse Assessment Method: Automatic Cuff - Respirations Respiratory Rate: 15 Oxygen Delivery Method: Room Air O2 Sat by Pulse Oximetry: 98 - Blood Pressure Right Arm Blood Pressure: 133/88 Blood Pressure Mean: 103 Blood Pressure Source: Automatic Cuff Medical Screen Scoring (Pre) - Cervical Exam Dilation: Exam Deferred Effacement: Exam Deferred Membranes: Intact - Uterine Contractions Frequency: > 5 minutes apart = 1 Duration: N/A Intensity: N/A - Maternal Vital Signs Maternal Temperature: N/A Maternal Blood Pressure: Systolic >139 = 2 Signs of Preeclampsia: Headache = 1 Maternal Respirations: N/A - Maternal Trauma Maternal Trauma: N/A - Assessment - Baby A Baseline FHR: 140 Heart Rate - NICHD Category: Category I (Normal) = 0 NST: Reactive Position: N/A Station: N/A - Total Score - Baby A Total Score - Baby A: 4 - Total Score - Baby B Total Score - Baby B: 4 - Total Score - Baby C Total Score - Baby C: 4 - Level of Risk - Baby A Level of Risk - Baby A: Low (0-5) - Level of Risk - Baby B Level of Risk - Baby B: Low (0-5) - Level of Risk - Baby C Level of Risk - Baby C: Low (0-5) Physician Notification (Pre) - Physician Notified Physician Notified Date: 10/05/19 Physician Notified Time: 02:01 New Order Received: Yes - Notification Comment Comment: obtain PIH labs, call with abnormals Medical Screen Scoring (Post) - Cervical Exam Dilation: Exam Deferred Effacement: Exam Deferred Membranes: Intact - Uterine Contractions Frequency: N/A Duration: N/A Intensity: N/A - Maternal Vital Signs Maternal Temperature: N/A Maternal Blood Pressure: N/A Signs of Preeclampsia: Headache = 1, Epigastric Pain = 1 Maternal Respirations: N/A - Maternal Trauma Maternal Trauma: N/A - Assessment - Baby A Heart Rate: 135 Heart Rate - NICHD Category: Category I (Normal) = 0 NST: Reactive Position: N/A Station: N/A - Total Score Total Score - Baby A: 2 Total Score - Baby B: 2 Total Score - Baby C: 2 - Post Treatment Level of Risk Post Treatment Level of Risk - Baby A: Low (0-5) Post Treatment Level of Risk - Baby B: Low (0-5) Post Treatment Level of Risk - Baby C: Low (0-5) Physician Notification (Post) - Physician Notified Physician Notified Date: 10/05/19 Physician Notified Time: 04:36 Physician/Practitioner Notified:: Dr Mckenna New Order Received: Yes Disposition - Disposition OB Disposition: Physician follow up in office, Discharge to home, Written follow up instructions reviewed Discharge Date: 10/05/19 Discharge Time: 04:50 I agree with the RN Medical Screening Exam: Yes Risk & Benefit of care provided described in d/c instruction: Yes Risk & Benefit of Care Comment: Patient refused Tylenol and Benadryl for her headache. Her blood pressures dropped to a safer range without blood pressure medication. She was advised that I am willing to admit her for observation and 24-hour urine collection but declined to stay and said she would follow up with her own doctor today. Diagnosis: GESTATIONAL HTN W/O SIGNIFICANT PROTEINURIA, THIRD TRIMESTER
== END 2019-10-05 04:45 | disposition home or self-care (01) ==
LOC: FBPOP 00:49
PROVIDERS: ATTEND Obstetrics & Gynecology
DX: O13.3 Gestational [pregnancy-induced] hypertension without significant proteinuria, third trimester (principal); Z3A.35 35 weeks gestation of pregnancy
CPT/HCPCS: 59025; 82570; 84156; 82565; 83615; 84450; 84460; 84520; 84550; 85025; 81001; G0463; 99215

== ENCOUNTER 2019-10-05 11:34 | Observation (INO) | payer OTHER ==
[2019-10-05 13:21] LABS: Protein/Creatinine Ratio,Urine 0.111
[2019-10-05 13:22] LABS: Appearance,Urine Clear (Clear); Bacteria,Urine Rare /hpf; Bilirubin,Urine Negative (Negative); Blood,Urine Negative (Negative); Color,Urine Yellow; Glucose,Urine (UA) Negative (Negative); Ketones,Urine Negative (Negative); Leukocyte Esterase,Urine Small (Negative); Mucus,Urine Occasional /hpf; Nitrite,Urine Negative (Negative); Protein,Urine Negative (Negative); Specific Gravity,Urine 1.015 (1.001-1.035); Squamous Epithelial Cell,Urine <1 /hpf (0-4); Urobilinogen,Urine <2.0 mg/dL (<2.0); WBC,Urine 2 /hpf (0-5)
[2019-10-05 13:27] LABS: ALT 12 U/L (4-34); AST 25 U/L (14-36); African American GFR (CKD) >90 (>60 ml/min/1.73 sqM); Blood Urea Nitrogen 5 mg/dL (7-17); LDH 572 U/L (313-618); Non-African American GFR(CKD) >90 (>60 ml/min/1.73 sqM); Uric Acid 3.1 mg/dL (3.7-7.4)
[2019-10-05 13:28] LABS: Basophils % (A) 0 %; Eosinophils # (A) 0.2 k/uL (0-0.7); Eosinophils % (A) 2 %; HCT 35.9 % (34.0-46.0); HGB 10.9 gm/dL (11.4-16.0); Hypochromasia Marked; Lymphocytes # (A) 1.5 k/uL (1.0-4.8); Lymphocytes % (A) 16 %; MCH 25.4 pg (25.0-35.0); MCHC 30.4 g/dL (31.0-37.0); MCV 83.5 fL (80.0-100.0); Mean Platelet Volume 8.4; Monocytes # (A) 0.5 k/uL (0-1.0); Monocytes % (A) 5 %; Neutrophils # (A) 6.9 k/uL (1.3-7.7); Neutrophils % (A) 74 %; Platelet Count 248 k/uL (150-450); RDW 13.7 % (11.5-15.5); WBC 9.3 k/uL (3.8-10.6)
[2019-10-05] MEDS: ACETAMINOPHEN TAB 500 MG TAB PO PRN (14:29)
[2019-10-05] MEDS ORDERED: SALINE NASAL GEL 14.1 GM TUBE TOPICAL PRN (14:35)
--- NOTE | 2019-10-05 14:51 | P.HPOB ---
History of Present Illness H&P Date: 10/05/19 Chief Complaint: Intrauterine at 35 weeks with new onset gestational hypertension Patient is a 24-year-old at 35 weeks gestation who arrived last night complaining of epistaxis. She relates that she is never really had nosebleeds prior but that last night she began having heavy bleeding from her nose and she was brought into the emergency room. At that point blood pressures were noted to be elevated and she was brought in to labor and delivery. She continued have mild to moderate elevations of blood pressure including one that appear to be 170/102. Pre-clamped labs were drawn and were all negative. She does have anemia however, this has been worked up by hematology. She is a patient of Dr. Majano at [facility]. She Kary called him this morning following discharge from or Hospital with normal labs and he told her with her return of symptoms with nosebleed to come to our hospital. Blood pressures this afternoon have again been mildly elevated with the majority of them in the 140/90 range, however she did have one was 160/100. Recent blood pressures have been approximately 1:30 to 140/80-90. Repeat pre-clamped labs are again normal. It is unclear if this is due to atypical preeclampsia or true gestational hypertension versus possibly medication induced due to her taking her albuterol inhaler more frequently than she normally does. We'll start her with saline nasal spray to try increasing humidity by air of her nasal passages as well as consult Dr. Chapa and as she has decreased lung excursion bilateral lower lobes of her lungs. No wheeze, rhonchi or rales are noted however. She denies any fevers or chills or nausea or vomiting. She does have a headache we'll try Tylenol to see if that doesn't decrease her headache no other signs or symptoms of preeclampsia or severe features. We'll have her take her albuterol inhaler When necessary as she doesn't home. records from [facility] have been requested and did not show any significant issues with her previously other than the anemia. Have initiated a 24 urine for protein although this is likely going to be normal with normal protein to creatinine ratio of 0.11 this afternoon. She does relate that in April when she was approximately 13 weeks she did have a spontaneous pneumothorax as well. Her last also had apparently a significant abruption at approximately 27 weeks requiring emergent section. She plans for again this and should her symptoms change and become more consistent with pre-eclampsia was severe features we'll plan repeat section. On physical exam heart regular, lungs are clear but do show what appears to be decreased sounds bilateral lower lobes. Abdomen soft no contractions are noted on the monitor and a category 1 tracing is noted. Past Medical History Past Medical History: Asthma Additional Past Medical History / Comment(s): Chronic asthma History of Any Multi-Drug Resistant Organisms: None Reported Past Surgical History: Section Additional Past Surgical History / Comment(s): [place] tooth extraction Past Anesthesia/Blood Transfusion Reactions: No Reported Reaction Additional Past Anesthesia/Blood Transfusion Reaction / Comment(s): no anesthesia or blood before Smoking Status: Never smoker - Past Family History Father Family Medical History: Asthma Mother Family Medical History: No Reported History Medications and Allergies Home Medications Medication Instructions Recorded Confirmed Type Albuterol Sulfate [Proair Hfa] 2 puff INHALATION RT-QID PRN 05/05/19 10/05/19 History Allergies Allergy/AdvReac Type Severity Reaction Status Date / Time amoxicillin [Amoxicillin] Allergy Anaphylaxis Verified 10/05/19 11:23 Exam Osteopathic Statement: *. No significant issues noted on an osteopathic structural exam other than those noted in the History and Physical/Consult. Intake and Output 10/04/19 10/05/19 10/05/19 22:59 06:59 14:59 Other: Weight 53.977 kg Results Result Diagrams: 10/05/19 13:01 10/05/19 13:01 Abnormal Lab Results - Last 24 Hours (Table) 10/05/19 10/05/19 10/05/19 Range/Units 12:43 13:01 13:01 Hgb 10.9 L (11.4-16.0) gm/dL MCHC 30.4 L (31.0-37.0) g/dL BUN 5 L (7-17) mg/dL Creatinine 0.45 L (0.52-1.04) mg/dL Uric Acid 3.1 L (3.7-7.4) mg/dL Ur Leukocyte Esterase Small H (Negative) Urine Bacteria Rare H (None) /hpf Urine Mucus Occasional H (None) /hpf
[2019-10-05] MEDS ORDERED: ALBUTEROL HFA INHALER INHALATION PRN (15:10)
[2019-10-06 11:35] VITALS: BP 141/79; PULSE 85; RESP 16; TEMP 97
[2019-10-06] MEDS: ACETAMINOPHEN TAB 500 MG TAB PO PRN (11:47)
--- NOTE | 2019-10-06 12:28 | P.CNPUL ---
History of Present Illness Consult date: 10/06/19 Requesting physician: Jese Oliver Reason for consult: dyspnea Chief complaint: Epistaxis History of present illness: This is a very pleasant 24-year-old -[place] female patient with history of mild intermittent chronic bronchial asthma, previous large spontaneous left- sided pneumothorax requiring Dura-Vent placement back in April 2019. We are seeing the patient at that time. She was then and is currently 35 weeks gestation. She is a . She presented to the emergency room with spontaneous heavy nosebleeds him a she was found to be hypertensive and was initially on the labor and delivery for unit here. She does follow with Dr. Majano at [facility]. She was subsequently discharged and educated to return if the nosebleeds returned which they did. She was admitted yesterday to the labor and delivery unit. She was having some complaints of shortness of breath and we are consulted for the same. She is seen today in consultation. She is awake and alert in no acute distress. She has some mild shortness of breath. She utilizes albuterol in the outpatient setting. She had been on Qvar in the past. She had not been seen in our office following the previous discharge. She denies any cough or congestion. No fever, chills or night sweat s. She is maintaining O2 saturations in the 90s on room air. She did have a peak blood pressure of 166/110 and currently 141/79. Earlier this morning she was 126/68. No further epistaxis. White count 9.3. Hemoglobin 10.9. Creatinine 0.45. Review of Systems REVIEW OF SYSTEMS: CONSTITUTIONAL: Denies any recent significant weight loss or weight gain. EYES: Denies change in vision. EARS, NOSE, MOUTH, THROAT: Mild headache, epistaxis. CARDIOVASCULAR: Denies chest pain, palpitations or syncopal episodes. RESPIRATORY: Minimal shortness of breath, no cough, congestion or hemoptysis. GASTROINTESTINAL: Denies change in appetite, denies abdominal pain GENITOURINARY: Denies hematuria, denies infections. MUSKULOSKELETAL: Denies pain, denies swelling. INTEGUMENTARY: Denies rash, denies eczema. NEUROLOGICAL: Denies recent memory loss, no recent seizure activity. PSYCHIATRIC: Denies anxiety, denies depression. HEMATOLOGIC/LYMPHATIC: Denies anemia, denies enlarged lymph nodes. Past Medical History Past Medical History: Asthma Additional Past Medical History / Comment(s): Chronic asthma History of Any Multi-Drug Resistant Organisms: None Reported Past Surgical History: Section Additional Past Surgical History / Comment(s): [place] tooth extraction Past Anesthesia/Blood Transfusion Reactions: No Reported Reaction Additional Past Anesthesia/Blood Transfusion Reaction / Comment(s): no anesthesia or blood before Smoking Status: Never smoker - Past Family History Father Family Medical History: Asthma Mother Family Medical History: No Reported History Medications and Allergies Home Medications Medication Instructions Recorded Confirmed Type Albuterol Sulfate [Proair Hfa] 2 puff INHALATION RT-QID PRN 05/05/19 10/05/19 History Allergies Allergy/AdvReac Type Severity Reaction Status Date / Time amoxicillin [Amoxicillin] Allergy Anaphylaxis Verified 10/05/19 11:23 Physical Exam Vitals: Vital Signs Temp Pulse Resp BP Pulse Ox 10/06/19 08:00 97.0 F L 85 16 141/79 10/06/19 06:15 97.9 F 89 14 126/68 98 10/06/19 03:00 98.1 F 150 H 20 130/62 98 10/05/19 23:00 88 18 140/88 10/05/19 19:46 99.1 F 99 18 132/73 10/05/19 14:11 97.5 F L 99 16 166/110 Intake and Output 10/05/19 10/06/19 10/06/19 22:59 06:59 14:59 Output Total 200 Balance -200 Output: Urine 200 Other: # Voids 1 GENERAL EXAM: Alert, very pleasant -[place] 24-year-old female patient, 35 weeks gestation, on room air, comfortable in no apparent distress. HEAD: Normocephalic. EYES: Normal reaction of pupils, equal size. NOSE: Clear with pink turbinates. THROAT: No erythema or exudates. NECK: No masses, no JVD. CHEST: No chest wall deformity. LUNGS: Equal air entry with no crackles, wheeze, rhonchi or dullness. CVS: S1 and S2 normal with no audible murmur, regular rhythm. ABDOMEN: Abdomen of , normal bowel sounds, no guarding or rigidity. SPINE: No scoliosis or deformity SKIN: No rashes CENTRAL NERVOUS SYSTEM: No focal deficits, tone is normal in all 4 extremities. EXTREMITIES: There is no peripheral edema. No clubbing, no cyanosis. Peripheral pulses are intact. Results - Laboratory Findings CBC and BMP: 10/05/19 13:01 10/05/19 13:01 Abnormal lab findings: Abnormal Labs 10/05/19 10/05/19 10/05/19 12:43 13:01 13:01 Hgb 10.9 L MCHC 30.4 L BUN 5 L Creatinine 0.45 L Uric Acid 3.1 L Ur Leukocyte Esterase Small H Urine Bacteria Rare H Urine Mucus Occasional H Assessment and Plan Assessment: Impression: #1 Acute epistaxis 2, recovered #2 35 weeks gestation with hypertension, improved #3 Mild intermittent chronic bronchial asthma currently inactive and stable Plan: The patient was seen and evaluated by Dr. Nunez She is stable for discharge from the pulmonary standpoint Continue albuterol in the outpatient setting Follow-up in our office regarding her asthma I, the cosigning physician, performed a history & physical examination of the patient. Lungs sounds are clear. Maintaining good O2 saturations in the 90s on room air. I discussed the assessment and plan of care with my nurse Leigh mullins. I attest to the above consultation as dictated by her. Time with Patient: Greater than 30
[2019-10-06 14:08] LABS: Total Protein 24 Hour,Urine 168 mg/24hr (42.0-225.0); Total Volume 24 Hour,Urine 1400 mls (800-1800)
--- NOTE | 2019-10-06 14:25 | P.DS ---
Providers Date of admission: 10/05/19 13:48 Expected date of discharge: 10/06/19 Attending physician: Jese Oliver Consults: 10/05/19 14:51 Consult Physician Routine Consulting Provider: Jaxson Christiansen Consult Reason/Comments: asthma Do you want consulting provider notified?: Yes Primary care physician: Stated None Hospital Course: Patient seen and evaluated. She is overall doing well today. Her vital signs have been much improved with better blood pressures. No cigarette elevations in blood pressure since yesterday afternoon. We'll plan discharged home with a 24-hour urine that returned at 168. There is no signs or symptoms of preeclampsia. Her headache has also resolved and she has no other complaints and is requesting discharge home. She does have an appointment with Dr. Majano on Tuesday which she is encouraged to make. Should she have worsening of symptoms heavy bleeding or severe epistaxis again she is encouraged to return were go to [facility] where her regulatory affairs portfolio leader is actually on staff. All the questions were answered for her at this time and she is stable for discharge at this time. Patient Condition at Discharge: Stable Plan - Discharge Summary New Discharge Prescriptions: No Action Albuterol Sulfate [Proair Hfa] 2 puff INHALATION RT-QID PRN PRN Reason: Wheezing Discharge Medication List Albuterol Sulfate [Proair Hfa] 2 puff INHALATION RT-QID PRN 05/05/19 [History] Follow up Appointment(s)/Referral(s): Hugo Majano DO [REFERRING] - 3 Days Activity/Diet/Wound Care/Special Instructions: Return with worsening of symptoms. Also can go to [facility] where her regulatory affairs portfolio leader is actually located. Discharge Disposition: HOME SELF-CARE
== END 2019-10-06 14:40 | disposition home or self-care (01) ==
LOC: FBPOP 11:34 → 4FBP 13:48
PROVIDERS: ADMIT Obstetrics & Gynecology; ATTEND Obstetrics & Gynecology
DX: O13.3 Gestational [pregnancy-induced] hypertension without significant proteinuria, third trimester (principal); R04.0 Epistaxis; O99.513 Diseases of the respiratory system complicating pregnancy, third trimester; J45.909 Unspecified asthma, uncomplicated; O99.013 Anemia complicating pregnancy, third trimester; O34.219 Maternal care for unspecified type scar from previous cesarean delivery; Z79.899 Other long term (current) drug therapy; Z88.0 Allergy status to penicillin; Z3A.35 35 weeks gestation of pregnancy; Z87.09 Personal history of other diseases of the respiratory system; Z82.5 Family history of asthma and other chronic lower respiratory diseases
CPT/HCPCS: 59025; 82570; 84156 ×2; 81050; 82565; 83615; 84450; 84460; 84520; 84550; 85025; 81001; G0463; G0378 ×2; 99215

== ENCOUNTER 2019-11-21 19:46 | Emergency (ER) | payer OTHER ==
[2019-11-21 20:01] VITALS: RESP 18
[2019-11-21] MEDS ORDERED: ALBUTEROL NEBULIZED 2.5 MG/3 ML INHALATION STA (20:02)
[2019-11-21] MEDS ORDERED: methylPREDNISolone SOD SUCCI 125 MG/2 ML VIAL IV STA (20:02)
--- NOTE | 2019-11-21 20:27 | XR ---
EXAMINATION TYPE: XR chest 1V portable DATE OF EXAM: 11/21/2019 COMPARISON: 06/05/2019 HISTORY: Pneumothorax. Short of breath TECHNIQUE: FINDINGS: Heart appears normal. Lungs are clear of consolidation. There is no evidence of pleural eff usion or pneumothorax. Trachea is midline. There are no hilar masses. IMPRESSION: No active cardiopulmonary disease. There is clearing of some mild reticular density in th e right upper lobe compared to last exam.
[2019-11-21 21:09] LABS: Basophils % (A) 0 %; Eosinophils # (A) 0.5 k/uL (0-0.7); Eosinophils % (A) 6 %; HCT 36.7 % (34.0-46.0); HGB 11.1 gm/dL (11.4-16.0); Hypochromasia Marked; Lymphocytes # (A) 2.8 k/uL (1.0-4.8); Lymphocytes % (A) 36 %; MCH 24.6 pg (25.0-35.0); MCHC 30.2 g/dL (31.0-37.0); MCV 81.5 fL (80.0-100.0); Mean Platelet Volume 7.7; Monocytes # (A) 0.4 k/uL (0-1.0); Monocytes % (A) 5 %; Neutrophils # (A) 3.9 k/uL (1.3-7.7); Neutrophils % (A) 50 %; Platelet Count 274 k/uL (150-450); RDW 15.4 % (11.5-15.5); WBC 7.7 k/uL (3.8-10.6)
[2019-11-21 21:12] LABS: ALT 10 U/L (4-34); AST 22 U/L (14-36); African American GFR (CKD) >90 (>60 ml/min/1.73 sqM); Albumin 4.6 g/dL (3.5-5.0); Alkaline Phosphatase 121 U/L (38-126); Anion Gap 12 mmol/L; Blood Urea Nitrogen 10 mg/dL (7-17); Calcium 9.4 mg/dL (8.4-10.2); Carbon Dioxide 23 mmol/L (22-30); Chloride 104 mmol/L (98-107); Glucose 105 mg/dL (74-99); Non-African American GFR(CKD) >90 (>60 ml/min/1.73 sqM); Potassium 3.6 mmol/L (3.5-5.1); Sodium 139 mmol/L (137-145); Total Bilirubin 0.2 mg/dL (0.2-1.3); Total Protein 7.9 g/dL (6.3-8.2)
[2019-11-21 21:38] VITALS: BP 144/95; PULSE 89; TEMP 98.4
--- NOTE | 2019-11-21 22:31 | ED ---
SOB HPI - General Chief Complaint: Shortness of Breath Stated Complaint: SOB Time Seen by Provider: 11/21/19 20:02 Source: patient Mode of arrival: ambulatory Limitations: no limitations - History of Present Illness Initial Comments: The 4-year-old female history of asthma presents emergency department today for chief complaint asthma exacerbation, shortness of breath. Patient states that she has had shows of breath and wheezing for the past 2 days she states she's been taking her Singulair and using her rescue inhaler however this does not seem to be working patient states she is to rescue inhaler a total of 6 times before presents to the emergency department today. Patient states it feels like her typical asthma exacerbations she denies any previous intubations she states she has been admitted to the ICU in the past. Patient states she is not on daily oral steroids or inhaled corticosteroids. Patient denies LABA use. patient denies , chest pain, leg swelling, history of DVT/PE. Patient has no additional complaints and upon arrival she appears nontoxic. Paitent denies . - Related Data Home Medications Medication Instructions Recorded Confirmed Albuterol Sulfate [Proair Hfa] 2 puff INHALATION RT-QID PRN 05/05/19 10/05/19 Previous Rx's Medication Instructions Recorded predniSONE 50 mg PO DAILY 4 Days #4 tab 11/21/19 Allergies Allergy/AdvReac Type Severity Reaction Status Date / Time amoxicillin [Amoxicillin] Allergy Anaphylaxis Verified 10/05/19 11:23 Review of Systems ROS Statement: Those systems with pertinent positive or pertinent negative responses have been documented in the HPI. ROS Other: All systems not noted in ROS Statement are negative. Past Medical History Past Medical History: Asthma Additional Past Medical History / Comment(s): Chronic asthma History of Any Multi-Drug Resistant Organisms: None Reported Past Surgical History: Section Additional Past Surgical History / Comment(s): [place] tooth extraction Past Anesthesia/Blood Transfusion Reactions: No Reported Reaction Additional Past Anesthesia/Blood Transfusion Reaction / Comment(s): no anesthesia or blood before Past Psychological History: No Psychological Hx Reported Smoking Status: Never smoker Past Alcohol Use History: None Reported Past Drug Use History: None Reported - Past Family History Father Family Medical History: Asthma Mother Family Medical History: No Reported History General Exam - General Exam Comments Initial Comments: General: The patient is awake and alert, in no distress Eye: 3 mm pupils are equal, round and reactive to light, extra-ocular movements are intact. No nystagmus. There is normal conjunctiva bilaterally. No signs of icterus. Ears, nose, mouth and throat: There are moist mucous membranes and no oral lesions. Neck: The neck is supple, there is no tenderness or JVD. Cardiovascular: There is a regular rate and rhythm. No murmur, rub or gallop is appreciated. Respiratory: Lungs sounds diminished, espirations are non-labored, breath sounds are equal. Expiratory wheeze, nostridor, rales, or rhonchi. Gastrointestinal: Soft, non-distended, non-tender abdomen without masses or organomegaly noted. There is no rebound or guarding present. Musculoskeletal: Normal ROM, no tenderness. Strength 5/5. Sensation intact. Radial pulses equal bilaterally 2+. Neurological: A&O x 3. CN II-XII intact grossly, There are no obvious motor or sensory deficits. Coordination appears grossly intact. Speech is normal. Skin: Skin is warm and dry and no rashes or lesions are noted. No LE edema, or maryana fpain/swelling. Psychiatric: Cooperative, appropriate mood & affect, normal judgment. Limitations: no limitations Course Vital Signs 11/21/19 11/21/19 11/21/19 19:59 20:11 20:36 Temperature 97.4 F L Pulse Rate 85 77 77 Respiratory 18 Rate Blood Pressure 170/101 O2 Sat by Pulse 100 Oximetry 11/21/19 21:38 Temperature 98.4 F Pulse Rate 89 Respiratory 18 Rate Blood Pressure 144/95 O2 Sat by Pulse 100 Oximetry Medical Decision Making - Medical Decision Making 24yo presenting for SOB, hx asthma. CXR no pneumothorax. significant imporvement with resolution of wheeze after 5mg albuterol treatment. Patient states she is feeling much better. Patient will be discharged with PCP f/u and oral steroids. Recommended continuing singular. Return parameters discussed and patient discharged appearing well after discussing case with Dr. Estrada. - Lab Data Result diagrams: 11/21/19 20:40 11/21/19 20:40 Lab Results 11/21/19 11/21/19 11/21/19 Range/Units 20:40 20:40 21:03 WBC 7.7 (3.8-10.6) k/uL RBC 4.50 (3.80-5.40) m/uL Hgb 11.1 L (11.4-16.0) gm/dL Hct 36.7 (34.0-46.0) % MCV 81.5 (80.0-100.0) fL MCH 24.6 L (25.0-35.0) pg MCHC 30.2 L (31.0-37.0) g/dL RDW 15.4 (11.5-15.5) % Plt Count 274 (150-450) k/uL Neutrophils % 50 % Lymphocytes % 36 % Monocytes % 5 % Eosinophils % 6 % Basophils % 0 % Neutrophils # 3.9 (1.3-7.7) k/uL Lymphocytes # 2.8 (1.0-4.8) k/uL Monocytes # 0.4 (0-1.0) k/uL Eosinophils # 0.5 (0-0.7) k/uL Basophils # 0.0 (0-0.2) k/uL Hypochromasia Marked Sodium 139 (137-145) mmol/L Potassium 3.6 (3.5-5.1) mmol/L Chloride 104 (98-107) mmol/L Carbon Dioxide 23 (22-30) mmol/L Anion Gap 12 mmol/L BUN 10 (7-17) mg/dL Creatinine 0.58 (0.52-1.04) mg/dL Est GFR (CKD-EPI)AfAm >90 (>60 ml/min/1.73 sqM) Est GFR (CKD-EPI)NonAf >90 (>60 ml/min/1.73 sqM) Glucose 105 H (74-99) mg/dL Calcium 9.4 (8.4-10.2) mg/dL Total Bilirubin 0.2 (0.2-1.3) mg/dL AST 22 (14-36) U/L ALT 10 (4-34) U/L Alkaline Phosphatase 121 (38-126) U/L Total Protein 7.9 (6.3-8.2) g/dL Albumin 4.6 (3.5-5.0) g/dL Urine HCG, Qual Not Detected (Not Detectd) Disposition Clinical Impression: SOB (shortness of breath), Wheezing Disposition: HOME SELF-CARE Condition: Good Instructions (If sedation given, give patient instructions): Asthma (ED) Additional Instructions: Please use medication as discussed. Please follow-up with family doctor in the next 2 days. Please return to emergency room if the symptoms increase or worsen or for any other concerns. Prescriptions: predniSONE 50 mg PO DAILY 4 Days #4 tab Is patient prescribed a controlled substance at d/c from ED?: No Referrals: Hyacinth Montero MD [Primary Care Provider] - 1-2 days Time of Disposition: 22:30
== END 2019-11-21 23:01 | disposition home or self-care (01) ==
LOC: EC 19:46
DX: R06.02 Shortness of breath (principal); R06.2 Wheezing; R09.89 Other specified symptoms and signs involving the circulatory and respiratory systems; Z88.0 Allergy status to penicillin; Z87.09 Personal history of other diseases of the respiratory system
CPT/HCPCS: 36415; 94640; 93005; 80053; 85025; 81025; 71045; 99285; 96374; J2930

== ENCOUNTER 2019-12-01 22:31 | Observation (INO) | payer OTHER ==
[2019-12-01] MEDS ORDERED: IPRATROPIUM-ALBUTEROL 3 ML NEB INHALATION STA (22:47)
[2019-12-01] MEDS ORDERED: SODIUM CHLORIDE 0.9% 1,000 ML IV STA (22:47)
[2019-12-01] MEDS ORDERED: MORPHINE SULFATE 4 MG/ML SYRINGE IVP STA (22:47)
[2019-12-01] MEDS ORDERED: KETOROLAC 30 MG/ML 1 ML VIAL IVP STA (22:47)
--- NOTE | 2019-12-01 22:47 | ED ---
SOB HPI - General Chief Complaint: Shortness of Breath Stated Complaint: ANNE Time Seen by Provider: 12/01/19 22:47 Source: EMS, RN notes reviewed, old records reviewed Mode of arrival: EMS Limitations: no limitations - History of Present Illness Initial Comments: This is a 24-year-old female DF for evaluation of shortness of breath left-sided chest pain. 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 No diaphoresis fever. Shortness of breath is exertional family and patient called EMS when she arrived home. Symptoms do improve with. Treatments patient is resting comfortably. She states she does feel better but still having left- sided chest pain patient has no other medical history takes no medications aside from daily breathing treatments MD Complaint: shortness of breath, cough, chest pain (Lsided) -: hour(s) Radiation: back Severity: moderate Severity scale (1-10): 7 Quality: dull Consistency: constant Improves With: nothing Worsens With: nothing Known History Of: asthma Context: recent URI Associated Symptoms: chest pain, pain with inspiration, cough, sputum production Treatments Prior to Arrival: none - Related Data Home Medications Medication Instructions Recorded Confirmed Budesonide (Unknown Strength) 1 vial INHALATION RT-BID 12/02/19 12/02/19 NIFEdipine XL [Procardia XL] 30 mg PO DAILY 12/02/19 12/02/19 Previous Rx's Medication Instructions Recorded Albuterol Inhaler [Ventolin Hfa 2 puff INHALATION RT-QID PRN #1 12/02/19 Inhaler] inhaler Mometasone/Formoterol [Dulera 100 2 puff INHALATION BID #1 inhaler 12/02/19 Mcg/5 Mcg Inhaler] predniSONE 10 mg PO DAILY #20 tab 12/02/19 Ketorolac [Toradol] 10 mg PO Q12H PRN 1 Days #2 tab 12/07/19 Allergies Allergy/AdvReac Type Severity Reaction Status Date / Time amoxicillin [Amoxicillin] Allergy Anaphylaxis Verified 12/07/19 00:16 Review of Systems ROS Statement: Those systems with pertinent positive or pertinent negative responses have been documented in the HPI. ROS Other: All systems not noted in ROS Statement are negative. Past Medical History Past Medical History: Asthma Additional Past Medical History / Comment(s): Chronic asthma, lung collapse History of Any Multi-Drug Resistant Organisms: None Reported Past Surgical History: Section Additional Past Surgical History / Comment(s): [place] tooth extraction Past Anesthesia/Blood Transfusion Reactions: No Reported Reaction Additional Past Anesthesia/Blood Transfusion Reaction / Comment(s): no anesthesia or blood before Past Psychological History: No Psychological Hx Reported Smoking Status: Never smoker Past Alcohol Use History: None Reported Past Drug Use History: None Reported - Past Family History Father Family Medical History: Asthma Mother Family Medical History: No Reported History General Exam Limitations: no limitations General appearance: alert, anxious, cachectic Head exam: Present: atraumatic, normocephalic, normal inspection Eye exam: Present: normal appearance, PERRL, EOMI. Absent: scleral icterus, conjunctival injection, periorbital swelling ENT exam: Present: normal exam, mucous membranes moist Neck exam: Present: normal inspection. Absent: tenderness, meningismus, lymphadenopathy Respiratory exam: Present: wheezes. Absent: respiratory distress, rales, rhonchi, stridor Cardiovascular Exam: Present: regular rate, normal rhythm, normal heart sounds. Absent: systolic murmur, diastolic murmur, rubs, gallop, clicks GI/Abdominal exam: Present: soft, normal bowel sounds. Absent: distended, tenderness, guarding, rebound, rigid Extremities exam: Present: normal inspection, full ROM, normal capillary refill. Absent: tenderness, pedal edema, joint swelling, calf tenderness Back exam: Present: normal inspection Neurological exam: Present: alert, oriented X3, CN II-XII intact Psychiatric exam: Present: normal affect, normal mood Skin exam: Present: warm, dry, intact, normal color. Absent: rash Course Vital Signs 12/01/19 12/01/19 12/01/19 22:42 23:11 23:23 Temperature 97.9 F Pulse Rate 82 96 90 Respiratory 18 Rate Blood Pressure 142/92 O2 Sat by Pulse 100 Oximetry 12/01/19 12/02/19 23:30 00:00 Temperature Pulse Rate 81 97 Respiratory 13 18 Rate Blood Pressure 147/92 149/99 O2 Sat by Pulse 100 100 Oximetry - Reevaluation(s) Reevaluation #1: Medical record is reviewed Patient's no acute distress still complaining of chest pain shortness of breath No real improvement with pain control breathing treatments - Consultations Consultation #1: Spoke with [facility] were okay for admission Medical Decision Making - Medical Decision Making [age] female DF for evaluation of shortness of history of asthma left-sided chest pain. Patient is CT which is negative, [place] for persistent breathing treatments - Lab Data Result diagrams: 12/01/19 23:10 12/01/19 23:10 Lab Results 12/01/19 12/01/19 12/01/19 Range/Units 23:10 23:10 23:10 WBC 8.8 (3.8-10.6) k/uL RBC 4.40 (3.80-5.40) m/uL Hgb 10.5 L (11.4-16.0) gm/dL Hct 34.6 (34.0-46.0) % MCV 78.5 L (80.0-100.0) fL MCH 23.7 L (25.0-35.0) pg MCHC 30.2 L (31.0-37.0) g/dL RDW 16.0 H (11.5-15.5) % Plt Count 279 (150-450) k/uL Neutrophils % 57 % Lymphocytes % 31 % Monocytes % 5 % Eosinophils % 5 % Basophils % 0 % Neutrophils # 5.1 (1.3-7.7) k/uL Lymphocytes # 2.7 (1.0-4.8) k/uL Monocytes # 0.4 (0-1.0) k/uL Eosinophils # 0.5 (0-0.7) k/uL Basophils # 0.0 (0-0.2) k/uL Hypochromasia Marked Microcytosis Slight PT 10.5 (9.0-12.0) sec INR 1.0 (<1.2) APTT 24.4 (22.0-30.0) sec D-Dimer <0.17 (<0.60) mg/L FEU Sodium 138 (137-145) mmol/L Potassium 3.7 (3.5-5.1) mmol/L Chloride 107 (98-107) mmol/L Carbon Dioxide 24 (22-30) mmol/L Anion Gap 7 mmol/L BUN 12 (7-17) mg/dL Creatinine 0.65 (0.52-1.04) mg/dL Est GFR (CKD-EPI)AfAm >90 (>60 ml/min/1.73 sqM) Est GFR (CKD-EPI)NonAf >90 (>60 ml/min/1.73 sqM) Glucose 102 H (74-99) mg/dL Plasma Lactic Acid Ariel (0.7-2.0) mmol/L Calcium 8.9 (8.4-10.2) mg/dL Magnesium 2.1 (1.6-2.3) mg/dL Total Bilirubin 0.2 (0.2-1.3) mg/dL AST 24 (14-36) U/L ALT 13 (4-34) U/L Alkaline Phosphatase 112 (38-126) U/L Troponin I (0.000-0.034) ng/mL NT-Pro-B Natriuret Pep pg/mL Total Protein 7.1 (6.3-8.2) g/dL Albumin 4.1 (3.5-5.0) g/dL 12/01/19 12/01/19 12/01/19 Range/Units 23:10 23:10 23:10 WBC (3.8-10.6) k/uL RBC (3.80-5.40) m/uL Hgb (11.4-16.0) gm/dL Hct (34.0-46.0) % MCV (80.0-100.0) fL MCH (25.0-35.0) pg MCHC (31.0-37.0) g/dL RDW (11.5-15.5) % Plt Count (150-450) k/uL Neutrophils % % Lymphocytes % % Monocytes % % Eosinophils % % Basophils % % Neutrophils # (1.3-7.7) k/uL Lymphocytes # (1.0-4.8) k/uL Monocytes # (0-1.0) k/uL Eosinophils # (0-0.7) k/uL Basophils # (0-0.2) k/uL Hypochromasia Microcytosis PT (9.0-12.0) sec INR (<1.2) APTT (22.0-30.0) sec D-Dimer (<0.60) mg/L FEU Sodium (137-145) mmol/L Potassium (3.5-5.1) mmol/L Chloride (98-107) mmol/L Carbon Dioxide (22-30) mmol/L Anion Gap mmol/L BUN (7-17) mg/dL Creatinine (0.52-1.04) mg/dL Est GFR (CKD-EPI)AfAm (>60 ml/min/1.73 sqM) Est GFR (CKD-EPI)NonAf (>60 ml/min/1.73 sqM) Glucose (74-99) mg/dL Plasma Lactic Acid Ariel 0.8 (0.7-2.0) mmol/L Calcium (8.4-10.2) mg/dL Magnesium (1.6-2.3) mg/dL Total Bilirubin (0.2-1.3) mg/dL AST (14-36) U/L ALT (4-34) U/L Alkaline Phosphatase (38-126) U/L Troponin I <0.012 (0.000-0.034) ng/mL NT-Pro-B Natriuret Pep 18 pg/mL Total Protein (6.3-8.2) g/dL Albumin (3.5-5.0) g/dL - Radiology Data Radiology results: report reviewed (chest x-ray CT chest negative for acute disease), image reviewed Disposition Clinical Impression: Dyspnea, SOB (shortness of breath), Chest pain, Asthma with status asthmaticus Disposition: ADMITTED IP TO THIS HOSP Condition: Good Is patient prescribed a controlled substance at d/c from ED?: No
--- NOTE | 2019-12-01 23:15 | XR ---
EXAMINATION TYPE: XR chest 1V portable DATE OF EXAM: 12/01/2019 COMPARISON: 11/21/2019 HISTORY: Difficulty breathing TECHNIQUE: FINDINGS: Heart and mediastinum are normal. Lungs are clear. Diaphragm is normal. Bony thorax appears normal. There are chest leads. IMPRESSION: Normal chest. No change.
[2019-12-01 23:20] LABS: Basophils % (A) 0 %; Eosinophils # (A) 0.5 k/uL (0-0.7); Eosinophils % (A) 5 %; HCT 34.6 % (34.0-46.0); HGB 10.5 gm/dL (11.4-16.0); Hypochromasia Marked; Lymphocytes # (A) 2.7 k/uL (1.0-4.8); Lymphocytes % (A) 31 %; MCH 23.7 pg (25.0-35.0); MCHC 30.2 g/dL (31.0-37.0); MCV 78.5 fL (80.0-100.0); Microcytosis Slight; Monocytes # (A) 0.4 k/uL (0-1.0); Monocytes % (A) 5 %; Neutrophils # (A) 5.1 k/uL (1.3-7.7); Neutrophils % (A) 57 %; Platelet Count 279 k/uL (150-450); WBC 8.8 k/uL (3.8-10.6)
[2019-12-01] MEDS ORDERED: ASPIRIN 81 MG PO STA (23:27)
[2019-12-01] MEDS ORDERED: NITROGLYCERIN SL TABS 0.4 MG TAB SUBLINGUAL PRN (23:27)
[2019-12-01 23:31] LABS: ALT 13 U/L (4-34); AST 24 U/L (14-36); African American GFR (CKD) >90 (>60 ml/min/1.73 sqM); Albumin 4.1 g/dL (3.5-5.0); Alkaline Phosphatase 112 U/L (38-126); Anion Gap 7 mmol/L; Blood Urea Nitrogen 12 mg/dL (7-17); Calcium 8.9 mg/dL (8.4-10.2); Carbon Dioxide 24 mmol/L (22-30); Chloride 107 mmol/L (98-107); Glucose 102 mg/dL (74-99); Magnesium 2.1 mg/dL (1.6-2.3); Non-African American GFR(CKD) >90 (>60 ml/min/1.73 sqM); Potassium 3.7 mmol/L (3.5-5.1); Sodium 138 mmol/L (137-145); Total Bilirubin 0.2 mg/dL (0.2-1.3); Total Protein 7.1 g/dL (6.3-8.2)
[2019-12-01 23:34] LABS: D-Dimer <0.17 mg/L FEU (<0.60); Partial Thromboplastin Time 24.4 sec (22.0-30.0); Prothrombin Time 10.5 sec (9.0-12.0)
--- NOTE | 2019-12-02 00:27 | CT ---
EXAMINATION TYPE: CT angio chest DATE OF EXAM: 12/02/2019 COMPARISON: 12/17/2017 HISTORY: ANNE CT DLP: 192.2 mGycm Automated exposure control for dose reduction was used. CONTRAST: Performed with IV Contrast, patient injected with 100 mL of Isovue 370. Multiple axial sections were obtained from the thoracic inlet to the diaphragm with IV contrast and 3 -D post processed images. FINDINGS: The lungs are clear of infiltrate. There is no pleural effusion. There is no evidence of a pulmonary mass. There is no mediastinal adenopathy. There are no hilar masses. Thoracic aorta appears intact. T here is no aneurysm or dissection. Heart size is normal. There is no pericardial effusion. There ther e is normal contrast opacification of the pulmonary arteries. There are no filling defects. Upper abd ominal soft tissues are intact. The bony thorax is intact. IMPRESSION: Negative exam. No evidence of pulmonary embolism. No change compared to old exam.
[2019-12-02] MEDS: SODIUM CHLORIDE 0.9% 1,000 ML IV SCH ×2 (02:01→07:55)
[2019-12-02] MEDS: MORPHINE SULFATE 4 MG/ML SYRINGE IVP PRN ×2 (03:32→07:52)
[2019-12-02 06:36] LABS: Cholesterol 181 mg/dL (<200); HDL Cholesterol 65 mg/dL (40-60); LDL Cholesterol,Calculated 109 mg/dL (0-99); Triglycerides 35 mg/dL (<150)
[2019-12-02] MEDS: IPRATROPIUM-ALBUTEROL 3 ML NEB INHALATION SCH ×2 (07:20→10:55)
[2019-12-02] MEDS ORDERED: ASPIRIN 325 MG TAB PO SCH (09:00)
[2019-12-02] MEDS ORDERED: NIFEdipine XL 30 MG TAB.ER.24 PO SCH (09:30)
--- NOTE | 2019-12-02 12:08 | P.HPIM ---
History of Present Illness Patient is a pleasant 24-year-old female came in with comments of shortness of breath and the chest pain left-sided musculoskeletal reproducible. Patient does have history of asthma. Patient had diffuse chills patient had a CT angios the chest because of the pleuritic nature of the chest pain CT of the chest did not show any pulmonary embolism patient was a evaluated by cardiology patient does have history of hypertension post patient has been on different opinion patient blood pressure is okay now. Patient will be given a dose of atropine face since the patient has a continued elevation blood pressure 5 months after it's appropriate that patient is tested for secondary causes of hypertension. Patient is wishing to go home at order a renal artery duplex as an outpatient and patient followed Dr. Ochoa as an outpatient counseling regarding appropriate way to check blood pressure was provided and patient will check her blood pressure 2-3 times a day and that she'll take the readings to rule cardiology office where she can have blood pressure medications can be titrated patient is on very low-dose of neutropenia at this time. Blood pressure is 119/57 although as per the patient it's the usual elevated and in 160s and 170s systolic at home Review of Systems REVIEW OF SYSTEMS: CONSTITUTIONAL: No fever, no malaise, no fatigue. HEENT: No recent visual problems or hearing problems. Denied any sore throat. CARDIOVASCULAR: No chest pain, orthopnea, PND, no palpitations, no syncope. PULMONARY: As mentioned in HPI GASTROINTESTINAL: No diarrhea, no nausea, no vomiting, no abdominal pain. NEUROLOGICAL: No headaches, no weakness, no numbness. HEMATOLOGICAL: Denies any bleeding or petechiae. GENITOURINARY: Denies any burning micturition, frequency, or urgency. MUSCULOSKELETAL/RHEUMATOLOGICAL: Denies any joint pain, swelling, or any muscle pain. ENDOCRINE: Denies any polyuria or polydipsia. The rest of the 14-point review of systems is negative. Past Medical History Past Medical History: Asthma Additional Past Medical History / Comment(s): Chronic asthma, lung collapse (April) History of Any Multi-Drug Resistant Organisms: None Reported Past Surgical History: Section Additional Past Surgical History / Comment(s): [place] tooth extraction Past Anesthesia/Blood Transfusion Reactions: No Reported Reaction Additional Past Anesthesia/Blood Transfusion Reaction / Comment(s): no anesthesia or blood before Past Psychological History: No Psychological Hx Reported Additional Psychological History / Comment(s): Pt resides with her 3 children, ages 5yrs and 1 year old and 5 week old. 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 Smoking Status: Never smoker Past Alcohol Use History: None Reported Past Drug Use History: None Reported - Past Family History Father Family Medical History: Asthma Mother Family Medical History: No Reported History Medications and Allergies Home Medications Medication Instructions Recorded Confirmed Type Albuterol Sulfate [Proair Hfa] 2 puff INHALATION RT-QID PRN #1 12/02/19 Rx inhaler Budesonide (Unknown Strength) 1 vial INHALATION RT-BID 12/02/19 12/02/19 History Mometasone/Formoterol [Dulera 100 2 puff INHALATION BID #1 inhaler 12/02/19 Rx Mcg/5 Mcg Inhaler] NIFEdipine XL [Procardia XL] 30 mg PO DAILY 12/02/19 12/02/19 History Allergies Allergy/AdvReac Type Severity Reaction Status Date / Time amoxicillin [Amoxicillin] Allergy Anaphylaxis Verified 12/02/19 11:09 Physical Exam Vitals: Vital Signs Temp Pulse Pulse Resp BP BP Pulse Ox 12/02/19 11:23 90 12/02/19 11:13 90 12/02/19 08:00 20 12/02/19 07:58 97.7 F 104 H 20 124/71 98 12/02/19 07:30 92 12/02/19 07:20 92 12/02/19 03:50 97 16 12/02/19 03:49 98.0 F 97 16 119/57 99 12/02/19 01:11 98.2 F 95 18 156/91 100 12/02/19 00:00 97 18 149/99 100 12/01/19 23:30 81 13 147/92 100 12/01/19 23:23 90 12/01/19 23:11 96 12/01/19 22:42 97.9 F 82 18 142/92 100 Intake and Output 12/01/19 12/02/19 12/02/19 22:59 06:59 14:59 Intake Total 240 Balance 240 Intake: Oral 240 Other: Voiding Method Toilet Toilet Weight 45.813 kg 46 kg PHYSICAL EXAMINATION: GENERAL: The patient is alert and oriented x3, not in any acute distress. Thin built female HEENT: Pupils are round and equally reacting to light. EOMI. No scleral icterus. No conjunctival pallor. Normocephalic, atraumatic. No pharyngeal erythema. No thyromegaly. CARDIOVASCULAR: S1 and S2 present. No murmurs, rubs, or gallops. PULMONARY: Chest is clear to auscultation, no wheezing or crackles. ABDOMEN: Soft, nontender, nondistended, normoactive bowel sounds. No palpable organomegaly. MUSCULOSKELETAL: No joint swelling or deformity. EXTREMITIES: No cyanosis, clubbing, or pedal edema. NEUROLOGICAL: Gross neurological examination did not reveal any focal deficits. SKIN: No rashes. Results CBC & Chem 7: 12/01/19 23:10 12/01/19 23:10 Labs: Abnormal Lab Results - Last 24 Hours (Table) 12/01/19 12/01/19 12/02/19 Range/Units 23:10 23:10 05:24 Hgb 10.5 L (11.4-16.0) gm/dL MCV 78.5 L (80.0-100.0) fL MCH 23.7 L (25.0-35.0) pg MCHC 30.2 L (31.0-37.0) g/dL RDW 16.0 H (11.5-15.5) % Glucose 102 H (74-99) mg/dL LDL Cholesterol, Calc 109 H (0-99) mg/dL HDL Cholesterol 65 H (40-60) mg/dL Thrombosis Risk Factor Assmnt - Choose All That Apply Any of the Below Risk Factors Present?: No Other Risk Factors: No Other congenital or acquired thrombophilia - If yes, enter type in comment: No Thrombosis Risk Factor Assessment Level: Very Low Risk Assessment and Plan Plan: -Acute asthma exacerbation patient appears to have intermittent asthma. Patient is clear to auscultation and patient will be discharged on a short taper of suspect steroids patient will be given prescription of inhaled steroids which she can use after completion of systemic steroids and patient will be given prescription for albuterol as well. -Hypertension probably essential hypertension patient had persistently elevated blood pressure and's after 6 months after for patient is on very low- dose of P and patient will check her blood pressure at home but did those readings to cardiology's office and the renal artery duplex was ordered for the patient to rule out any secondary causes of hypertension. If she can use to hernandez ve persistent hypertension patient will need to be looked into other causes of secondary hypertension including admitted adrenal adenoma, pheochromocytoma, particularly if she has episodic hypertension -Chest pain musculoskeletal patient pain is a mild to moderate severity and patient believes she'll be okay with Tylenol.
--- NOTE | 2019-12-02 12:08 | P.DS ---
Providers Date of admission: 12/01/19 23:27 Attending physician: Luis March Consults: 12/01/19 23:27 Consult Physician Urgent Consulting Provider: Nicci Grant Consult Reason/Comments: cp Do you want consulting provider notified?: Yes Primary care physician: Winston Claros [facility] Course: Please refer to my history of present illness for further details Patient Condition at Discharge: Good Plan - Discharge Summary Discharge Rx Participant: No New Discharge Prescriptions: New Mometasone/Formoterol [Dulera 100 Mcg/5 Mcg Inhaler] 2 puff INHALATION BID #1 inhaler predniSONE 10 mg PO DAILY #20 tab Albuterol Inhaler [Ventolin Hfa Inhaler] 2 puff INHALATION RT-QID PRN #1 inhaler PRN Reason: Shortness Of Breath Or Wheezing Continue NIFEdipine XL [Procardia XL] 30 mg PO DAILY Budesonide (Unknown Strength) 1 vial INHALATION RT-BID Discontinued predniSONE 50 mg PO DAILY 4 Days #4 tab Albuterol Nebulized [Ventolin Nebulized] 2.5 mg INHALATION RT-Q4H PRN PRN Reason: Shortness Of Breath Discharge Medication List Albuterol Inhaler [Ventolin Hfa Inhaler] 2 puff INHALATION RT-QID PRN #1 inhaler 12/02/19 [Rx] Budesonide (Unknown Strength) 1 vial INHALATION RT-BID 12/02/19 [History] Mometasone/Formoterol [Dulera 100 Mcg/5 Mcg Inhaler] 2 puff INHALATION BID #1 inhaler 12/02/19 [Rx] NIFEdipine XL [Procardia XL] 30 mg PO DAILY 12/02/19 [History] predniSONE 10 mg PO DAILY #20 tab 12/02/19 [Rx] Follow up Appointment(s)/Referral(s): Logan Stratton MD [STAFF PHYSICIAN] - 1 Week Hyacinth Montero MD [Primary Care Provider] - 3 Days Discharge Disposition: HOME SELF-CARE
--- NOTE | 2019-12-02 13:09 | P.CRDCN ---
History of Present Illness History of present illness: This is Dr. Stratton dictating a consult on this patient The patient was interviewed and examined IMPRESSION / ASSESSMENT: History of preeclampsia Hypertension, on Procardia XL History of asthma PLAN: Continue Procardia XL If in the next 3-6 months she remains hypertensive then she should be worked up for secondary hypertension Renal artery Dopplers HPI patient presented with shortness of breath and left-sided chest discomfort She is very short of breath and had her usual asthma attack which is associated with tightness in the chest Normal ECG normal cardiac and symptoms This morning she is feeling a lot better Blood pressure is elevated. She takes Procardia XL and she had preeclampsia in her recent in the 35th week and delivery was in the 37th week She has never been hypertensive before. This is her fifth ROS: No fever chills or rigors, no cough, phlegm or expectoration, no nausea, vomiting or diarrhea, no hematuria, dysuria, no musculoskeletal complaints, no strokes or seizures, no skin lesions. EXAMINATION: Afebrile 97.7F pulse rate in the 80s and 90s Nonlabored breathing Blood pressure 124/71 mmHg Breath sounds are reduced bilaterally within only scattered rhonchi Normal heart sounds are very soft systolic murmur at the apex Abdomen is soft no abdomen bruits Extremity is warm no edema No JVD bruits REVIEW OF LABS, ECG & MEDICAL DATA History of preeclampsia Patient on nifedipine She also takes prednisone He will and 10.5 Sodium 138 potassium 3.7 chloride 107 BUN and creatinine normal Troponins are normal 3 LDL 109 HDL 65 Normal liver function Normal calcium and normal magnesium Twelve-lead ECG shows sinus rhythm with early repolarization abnormality Narrow P waves in lead V1 Chest CT does not show any evidence for pulmonary embolism Past Medical History Past Medical History: Asthma Additional Past Medical History / Comment(s): Chronic asthma, lung collapse (April) History of Any Multi-Drug Resistant Organisms: None Reported Past Surgical History: Section Additional Past Surgical History / Comment(s): [place] tooth extraction Past Anesthesia/Blood Transfusion Reactions: No Reported Reaction Additional Past Anesthesia/Blood Transfusion Reaction / Comment(s): no anesthesia or blood before Past Psychological History: No Psychological Hx Reported Additional Psychological History / Comment(s): Pt resides with her 3 children, ages 5yrs and 1 year old and 5 week old. 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 Smoking Status: Never smoker Past Alcohol Use History: None Reported Past Drug Use History: None Reported - Past Family History Father Family Medical History: Asthma Mother Family Medical History: No Reported History Medications and Allergies Home Medications Medication Instructions Recorded Confirmed Type Albuterol Inhaler [Ventolin Hfa 2 puff INHALATION RT-QID PRN #1 12/02/19 Rx Inhaler] inhaler Budesonide (Unknown Strength) 1 vial INHALATION RT-BID 12/02/19 12/02/19 History Mometasone/Formoterol [Dulera 100 2 puff INHALATION BID #1 inhaler 12/02/19 Rx Mcg/5 Mcg Inhaler] NIFEdipine XL [Procardia XL] 30 mg PO DAILY 12/02/19 12/02/19 History predniSONE 10 mg PO DAILY #20 tab 12/02/19 Rx Allergies Allergy/AdvReac Type Severity Reaction Status Date / Time amoxicillin [Amoxicillin] Allergy Anaphylaxis Verified 12/02/19 11:09 Physical Exam Vitals: Vital Signs Temp Pulse Pulse Resp BP BP Pulse Ox 12/02/19 11:23 90 12/02/19 11:13 90 12/02/19 08:00 20 12/02/19 07:58 97.7 F 104 H 20 124/71 98 12/02/19 07:30 92 12/02/19 07:20 92 12/02/19 03:50 97 16 12/02/19 03:49 98.0 F 97 16 119/57 99 12/02/19 01:11 98.2 F 95 18 156/91 100 12/02/19 00:00 97 18 149/99 100 12/01/19 23:30 81 13 147/92 100 12/01/19 23:23 90 12/01/19 23:11 96 12/01/19 22:42 97.9 F 82 18 142/92 100 Intake and Output 12/01/19 12/02/19 12/02/19 22:59 06:59 14:59 Intake Total 240 Balance 240 Intake: Oral 240 Other: Voiding Method Toilet Toilet Weight 45.813 kg 46 kg Results 12/01/19 23:10 12/01/19 23:10 Cardiac Enzymes 12/01/19 12/01/19 12/02/19 Range/Units 23:10 23:10 05:24 AST 24 (14-36) U/L Troponin I <0.012 <0.012 (0.000-0.034) ng/mL 12/02/19 Range/Units 10:51 AST (14-36) U/L Troponin I <0.012 (0.000-0.034) ng/mL Coagulation 12/01/19 Range/Units 23:10 PT 10.5 (9.0-12.0) sec APTT 24.4 (22.0-30.0) sec Lipids 12/02/19 Range/Units 05:24 Triglycerides 35 (<150) mg/dL Cholesterol 181 (<200) mg/dL HDL Cholesterol 65 H (40-60) mg/dL CBC 12/01/19 Range/Units 23:10 WBC 8.8 (3.8-10.6) k/uL RBC 4.40 (3.80-5.40) m/uL Hgb 10.5 L (11.4-16.0) gm/dL Hct 34.6 (34.0-46.0) % Plt Count 279 (150-450) k/uL Comprehensive Metabolic Panel 12/01/19 Range/Units 23:10 Sodium 138 (137-145) mmol/L Potassium 3.7 (3.5-5.1) mmol/L Chloride 107 (98-107) mmol/L Carbon Dioxide 24 (22-30) mmol/L BUN 12 (7-17) mg/dL Creatinine 0.65 (0.52-1.04) mg/dL Glucose 102 H (74-99) mg/dL Calcium 8.9 (8.4-10.2) mg/dL AST 24 (14-36) U/L ALT 13 (4-34) U/L Alkaline Phosphatase 112 (38-126) U/L Total Protein 7.1 (6.3-8.2) g/dL Albumin 4.1 (3.5-5.0) g/dL Current Medications Generic Name Dose Route Start Last Admin Trade Name Freq PRN Reason Stop Dose Admin Albuterol/Ipratropium 3 ml 12/02/19 08:00 12/02/19 10:55 Duoneb 0.5 Mg-3 Mg/3 Ml Soln INHALATION 3 ml RT-QID ASHLI Administration Aspirin 325 mg 12/02/19 09:00 12/02/19 12:52 Aspirin PO Not Given DAILY ASHLI Sodium Chloride 1,000 mls @ 100 mls/hr 12/01/19 23:30 12/02/19 07:55 Saline 0.9% IV 100 mls/hr .Q10H ASHLI Administration Morphine Sulfate 4 mg 12/01/19 22:47 12/02/19 07:52 Morphine Sulfate (Inj) IVP 4 mg Q4HR PRN Administration Pain Nifedipine 30 mg 12/02/19 09:30 12/02/19 12:52 Procardia Xl PO 30 mg DAILY ASHLI Administration Nitroglycerin 0.4 mg 12/01/19 23:27 Nitrostat SUBLINGUAL Q5M PRN Chest Pain Intake and Output 12/01/19 12/02/19 12/02/19 22:59 06:59 14:59 Intake Total 240 Balance 240 Intake: Oral 240 Other: Voiding Method Toilet Toilet Weight 45.813 kg 46 kg 12/01/19 23:10 12/01/19 23:10
[2019-12-02 13:10] VITALS: BP 115/71; PULSE 78; RESP 16; TEMP 98.2
== END 2019-12-02 14:01 | disposition home or self-care (01) ==
LOC: EC 22:31 → 3SCARD 23:27
PROVIDERS: ADMIT Internal Medicine; ATTEND Internal Medicine
DX: J45.902 Unspecified asthma with status asthmaticus (principal); R07.9 Chest pain, unspecified; Z87.09 Personal history of other diseases of the respiratory system; Z79.51 Long term (current) use of inhaled steroids; Z79.899 Other long term (current) drug therapy; I10 Essential (primary) hypertension; Z88.0 Allergy status to penicillin; Z87.59 Personal history of other complications of pregnancy, childbirth and the puerperium
CPT/HCPCS: 96376; 93005 ×2; 96361; 96374; 96375; 99285; 36415; 94640 ×3; 85379; 83880; 80061; 80053; 83605; 83735; 84484 ×2; 85025; 85610; 85730; 71045; 71275; G0378 ×2; U0003; J2270 ×2; J1885; Q9967

== ENCOUNTER 2019-12-07 00:04 | Emergency (ER) | payer OTHER ==
[2019-12-07 00:17] VITALS: TEMP 98
--- NOTE | 2019-12-07 01:14 | XR ---
EXAMINATION TYPE: XR chest 2V DATE OF EXAM: 12/07/2019 COMPARISON: 12/01/2019 HISTORY: Short of breath TECHNIQUE: 2 views FINDINGS: Heart and mediastinum are normal. Lungs are clear. Diaphragm is normal. Bony thorax appears normal. IMPRESSION: Normal chest. No change.
[2019-12-07 01:24] LABS: Anisocytosis Slight; Basophils % (A) 0 %; Eosinophils # (A) 0.5 k/uL (0-0.7); Eosinophils % (A) 5 %; HCT 34.3 % (34.0-46.0); HGB 10.3 gm/dL (11.4-16.0); Hypochromasia Marked; Lymphocytes % (A) 29 %; MCH 23.7 pg (25.0-35.0); MCHC 29.9 g/dL (31.0-37.0); MCV 79.1 fL (80.0-100.0); Mean Platelet Volume 8.2; Microcytosis Slight; Monocytes # (A) 0.4 k/uL (0-1.0); Monocytes % (A) 4 %; Neutrophils # (A) 6.4 k/uL (1.3-7.7); Neutrophils % (A) 61 %; Platelet Count 288 k/uL (150-450); RBC 4.33 m/uL (3.80-5.40); RDW 16.8 % (11.5-15.5); WBC 10.5 k/uL (3.8-10.6)
--- NOTE | 2019-12-07 01:24 | ED ---
Chest Pain HPI - General Chief Complaint: Chest Pain Stated Complaint: Chest Pain Time Seen by Provider: 12/07/19 00:18 Source: patient, family Mode of arrival: ambulatory Limitations: no limitations - History of Present Illness Initial Comments: 24yo female with history of asthma, previous pneumothorax, who is 6 weeks s/p section, HTN currently undergoing evaluation for possible renal artery stenosis presenting to the ER today for cc of sharp chest pain, left sided. Patient states that she has had sharp left sided chest pain that increases with inspiration for the past day. She states she was recently admitted for chest pain/similar symptoms. She states she continues to have SOB but this does not feel like her asthma. Patient denies leg swelling or history of DVT/PE. Denies hemoptysis. Denies chest pressure, jaw pain, arm pain, or nausea. Denies . Denies fevers, cough. Patient has no additional complaints. Upon arrival patient has elevated blood pressure, HR and oxygen saturation within acceptable limits. Pt does not appear in distress, resting comfortably. MD Complaint: chest pain - Related Data Home Medications Medication Instructions Recorded Confirmed Budesonide (Unknown Strength) 1 vial INHALATION RT-BID 12/02/19 12/02/19 NIFEdipine XL [Procardia XL] 30 mg PO DAILY 12/02/19 12/02/19 Previous Rx's Medication Instructions Recorded Albuterol Inhaler [Ventolin Hfa 2 puff INHALATION RT-QID PRN #1 12/02/19 Inhaler] inhaler Mometasone/Formoterol [Dulera 100 2 puff INHALATION BID #1 inhaler 12/02/19 Mcg/5 Mcg Inhaler] predniSONE 10 mg PO DAILY #20 tab 12/02/19 Ketorolac [Toradol] 10 mg PO Q12H PRN 1 Days #2 tab 12/07/19 Allergies Allergy/AdvReac Type Severity Reaction Status Date / Time amoxicillin [Amoxicillin] Allergy Anaphylaxis Verified 12/07/19 00:16 Review of Systems ROS Statement: Those systems with pertinent positive or pertinent negative responses have been documented in the HPI. ROS Other: All systems not noted in ROS Statement are negative. Past Medical History Past Medical History: Asthma Additional Past Medical History / Comment(s): Chronic asthma, lung collapse (April) History of Any Multi-Drug Resistant Organisms: None Reported Past Surgical History: Section Additional Past Surgical History / Comment(s): [place] tooth extraction Past Anesthesia/Blood Transfusion Reactions: No Reported Reaction Additional Past Anesthesia/Blood Transfusion Reaction / Comment(s): no anesthesia or blood before Past Psychological History: No Psychological Hx Reported Smoking Status: Never smoker Past Alcohol Use History: None Reported Past Drug Use History: None Reported - Past Family History Father Family Medical History: Asthma Mother Family Medical History: No Reported History General Exam - General Exam Comments Initial Comments: General: The patient is awake and alert, in no distress, and does not appear acutely ill. Eye: +3 mm pupils are equal, round and reactive to light, extra-ocular movements are intact. No nystagmus. There is normal conjunctiva bilaterally. No signs of icterus. Ears, nose, mouth and throat: There are moist mucous membranes and no oral lesions. Neck: The neck is supple, there is no tenderness or JVD. Cardiovascular: There is a regular rate and rhythm. No murmur, rub or gallop is appreciated. Respiratory: Lungs are clear to auscultation, respirations are non-labored, breath sounds are equal. No wheezes, stridor, rales, or rhonchi. Gastrointestinal: Soft, non-distended, non-tender abdomen without masses or organomegaly noted. There is no rebound or guarding present. Musculoskeletal: Normal ROM, no tenderness. Strength 5/5. Sensation intact. Radial and DP pulses equal bilaterally 2+. Neurological: A&O x 3. CN II-XII intact grossly, There are no obvious motor or sensory deficits. Coordination appears grossly intact. Speech is normal. Skin: Skin is warm and dry and no rashes or lesions are noted. No calf pain, no LE edema. Psychiatric: Cooperative, appropriate mood & affect, normal judgment. Limitations: no limitations Course Vital Signs 12/07/19 12/07/19 12/07/19 00:13 01:30 02:20 Temperature 98 F Pulse Rate 71 86 78 Respiratory 18 20 18 Rate Blood Pressure 146/97 138/106 138/86 O2 Sat by Pulse 99 98 98 Oximetry Chest Pain MDM - MDM 24-year-old feel present today for chief complaint of sharp left-sided chest pain. Experienced before and admitted. (-) W/u. CUrrently undergoing outpatient w/u for HTN concern for renal artery stenosis. BP elevated on arrival. Troponin (-). Dimer (-). EKG no acute findings. CXR clear. Lungs clear No murmur. Pulse exam WNL. Pain resolved with toradol. Discussed case in detail and EKg was reviewed by attending Dr. Riojas who is agreeable to discharge with outpatient evaluation. Patient is agreeable and was requesting discharge Disposition Clinical Impression: Chest pain, pleuritic Disposition: HOME SELF-CARE Condition: Good Instructions (If sedation given, give patient instructions): Pleurisy (ED) Additional Instructions: Please use medication as discussed. Please follow-up with family doctor in the next 2 days. Please return to emergency room if the symptoms increase or worsen or for any other concerns. Prescriptions: Ketorolac [Toradol] 10 mg PO Q12H PRN 1 Days #2 tab PRN Reason: Pain Is patient prescribed a controlled substance at d/c from ED?: No Referrals: Hyacinth Montero MD [Primary Care Provider] - 1-2 days Time of Disposition: 02:34
[2019-12-07 01:40] LABS: ALT 14 U/L (4-34); AST 22 U/L (14-36); African American GFR (CKD) >90 (>60 ml/min/1.73 sqM); Albumin 4.3 g/dL (3.5-5.0); Alkaline Phosphatase 97 U/L (38-126); Anion Gap 7 mmol/L; Blood Urea Nitrogen 15 mg/dL (7-17); Calcium 9.3 mg/dL (8.4-10.2); Carbon Dioxide 25 mmol/L (22-30); Chloride 104 mmol/L (98-107); Glucose 98 mg/dL (74-99); Non-African American GFR(CKD) >90 (>60 ml/min/1.73 sqM); Sodium 136 mmol/L (137-145); Total Bilirubin 0.2 mg/dL (0.2-1.3); Total Protein 7.4 g/dL (6.3-8.2)
[2019-12-07 01:43] LABS: D-Dimer <0.17 mg/L FEU (<0.60); Prothrombin Time 10.3 sec (9.0-12.0)
[2019-12-07] MEDS ORDERED: KETOROLAC 30 MG/ML 1 ML VIAL IVP STA (02:11)
[2019-12-07 02:20] VITALS: BP 138/86; PULSE 78; RESP 18
[2019-12-07 02:33] LABS: Appearance,Urine Clear (Clear); Bilirubin,Urine Negative (Negative); Blood,Urine Negative (Negative); Color,Urine Light Yellow; Glucose,Urine (UA) Negative (Negative); Ketones,Urine Negative (Negative); Leukocyte Esterase,Urine Negative (Negative); Nitrite,Urine Negative (Negative); PH, Urine 7.5 (5.0-8.0); Protein,Urine Negative (Negative); Urobilinogen,Urine <2.0 mg/dL (<2.0)
== END 2019-12-07 03:09 | disposition home or self-care (01) ==
LOC: EC 00:04
DX: R07.1 Chest pain on breathing (principal); J45.909 Unspecified asthma, uncomplicated; I10 Essential (primary) hypertension; Z79.899 Other long term (current) drug therapy; Z88.0 Allergy status to penicillin
CPT/HCPCS: 36415; 93005; 85379; 80053; 83735; 84484; 85025; 85610; 85730; 81003; 71046; 99285; 96374; J1885

== ENCOUNTER 2020-04-06 13:52 | Observation (INO) | payer OTHER ==
[2020-04-06] MEDS ORDERED: methylPREDNISolone SOD SUCCI 125 MG/2 ML VIAL IV STA (14:05)
[2020-04-06] MEDS ORDERED: SODIUM CHLORIDE 0.9% 1,000 ML IV STA (14:05)
[2020-04-06] MEDS ORDERED: ALBUTEROL NEBULIZED 2.5 MG/3 ML INHALATION STA ×3 (14:05→17:23)
[2020-04-06] MEDS ORDERED: KETOROLAC 15 MG/ML 1 ML VIAL IVP STA (14:09)
[2020-04-06 15:01] LABS: Anisocytosis Slight; Basophils % (A) 0 %; Eosinophils # (A) 0.5 k/uL (0-0.7); Eosinophils % (A) 7 %; HCT 40.2 % (34.0-46.0); HGB 13.1 gm/dL (11.4-16.0); Lymphocytes # (A) 2.4 k/uL (1.0-4.8); Lymphocytes % (A) 29 %; MCH 28.8 pg (25.0-35.0); MCHC 32.7 g/dL (31.0-37.0); MCV 88.1 fL (80.0-100.0); Mean Platelet Volume 7.7; Monocytes # (A) 0.4 k/uL (0-1.0); Monocytes % (A) 5 %; Neutrophils # (A) 4.8 k/uL (1.3-7.7); Neutrophils % (A) 58 %; Platelet Count 259 k/uL (150-450); RBC 4.56 m/uL (3.80-5.40); WBC 8.2 k/uL (3.8-10.6)
--- NOTE | 2020-04-06 15:06 | XR ---
EXAMINATION TYPE: XR chest 2V DATE OF EXAM: 04/06/2020 COMPARISON: 12/07/2019 HISTORY: Chest pain TECHNIQUE: FINDINGS: There is no heart failure nor confluent pneumonic infiltrate. Costophrenic angles are clear . There are no hilar masses. Bony thorax is intact. IMPRESSION: No active cardiopulmonary disease. Normal heart. No change.
[2020-04-06 15:13] LABS: ALT 11 U/L (4-34); AST 20 U/L (14-36); African American GFR (CKD) >90 (>60 ml/min/1.73 sqM); Albumin 4.4 g/dL (3.5-5.0); Alkaline Phosphatase 95 U/L (38-126); Anion Gap 7 mmol/L; Blood Urea Nitrogen 14 mg/dL (7-17); Calcium 9.7 mg/dL (8.4-10.2); Carbon Dioxide 27 mmol/L (22-30); Chloride 104 mmol/L (98-107); Glucose 91 mg/dL (74-99); Non-African American GFR(CKD) >90 (>60 ml/min/1.73 sqM); Potassium 4.3 mmol/L (3.5-5.1); Sodium 138 mmol/L (137-145); Total Bilirubin 0.3 mg/dL (0.2-1.3); Total Protein 7.3 g/dL (6.3-8.2)
[2020-04-06] MEDS ORDERED: HYDROmorphone 0.5 MG/0.5 ML SYRINGE IVP STA (15:37)
--- NOTE | 2020-04-06 16:03 | ED ---
General Adult HPI - General Chief complaint: Shortness of Breath Stated complaint: Asthma Time Seen by Provider: 04/06/20 14:05 Source: patient Mode of arrival: ambulatory Limitations: no limitations - History of Present Illness Initial comments: 25yo female presented for chief complaint of shortness of breath. Patient states she has history of severe asthma. She states she's been hospitalized in the past for this. Denies previous intubations. Patient states that she use her nebulizer 4 times before coming to the emergency department and has had shortness of breath for the past 4 days she states it feels identical to when she's had asthma exacerbation in the past. Patient denies chest pain. Admits to headache. she states she has had them before and is not sure if its secondary to the breathing treatments. patient has no additional complaints. Denies steroid use currently. Denies leg swelling, pain with deep inspiration, she denies is being the worst headache of her life she denies sudden onset, denies visual changes or weakness of the upper or lower extremities or sensation deficit she states she feels slightly lightheaded but she is not sure if this is secondary to multiple treatments. Patient appears well on arrival in no acute respiratory distress - Related Data Home Medications Medication Instructions Recorded Confirmed Albuterol Nebulized [Ventolin 2.5 mg INHALATION RT-QID PRN 04/06/20 04/06/20 Nebulized] Beclomethasone Dipropionate [Qvar 2 puff INHALATION RT-BID 04/06/20 04/06/20 40 mcg Redihaler] Budesonide [Pulmicort] 0.25 mg INHALATION RT-BID 04/06/20 04/06/20 Ibuprofen [Motrin Ib] 200 mg PO Q6H PRN 04/06/20 04/06/20 Montelukast [Singulair] 10 mg PO DAILY 04/06/20 04/06/20 Omalizumab [Xolair] 150 mg SQ Q14D 04/06/20 04/06/20 Previous Rx's Medication Instructions Recorded Albuterol Inhaler [Ventolin Hfa 2 puff INHALATION RT-QID PRN #1 12/02/19 Inhaler] inhaler Allergies Allergy/AdvReac Type Severity Reaction Status Date / Time amoxicillin [Amoxicillin] Allergy Anaphylaxis Verified 04/06/20 13:57 Review of Systems ROS Statement: Those systems with pertinent positive or pertinent negative responses have been documented in the HPI. ROS Other: All systems not noted in ROS Statement are negative. Past Medical History Past Medical History: Asthma Additional Past Medical History / Comment(s): Chronic asthma, lung collapse (April), History of Any Multi-Drug Resistant Organisms: None Reported Past Surgical History: Section Additional Past Surgical History / Comment(s): [place] tooth extraction , Past Anesthesia/Blood Transfusion Reactions: No Reported Reaction Additional Past Anesthesia/Blood Transfusion Reaction / Comment(s): no anesthesia or blood before Past Psychological History: No Psychological Hx Reported Smoking Status: Never smoker Past Alcohol Use History: None Reported Past Drug Use History: None Reported - Past Family History Father Family Medical History: Asthma Mother Family Medical History: No Reported History General Exam Limitations: no limitations Course Vital Signs 04/06/20 04/06/20 04/06/20 13:55 15:03 15:14 Temperature 99.2 F Pulse Rate 79 84 83 Respiratory 22 18 Rate Blood Pressure 147/93 144/102 O2 Sat by Pulse 100 100 Oximetry 04/06/20 04/06/20 04/06/20 15:16 16:00 16:43 Temperature Pulse Rate 82 80 Respiratory 19 Rate Blood Pressure O2 Sat by Pulse Oximetry 04/06/20 04/06/20 04/06/20 16:57 17:17 17:58 Temperature Pulse Rate 84 82 Respiratory Rate Blood Pressure 120/80 O2 Sat by Pulse Oximetry 04/06/20 04/06/20 18:05 18:07 Temperature 98.1 F Pulse Rate 77 Respiratory 17 Rate Blood Pressure O2 Sat by Pulse 98 98 Oximetry - Reevaluation(s) Reevaluation #1: Complaining of headache, persistent CT ordered given elevation of BP, patient has history of elevated BP 04/06/20 Medical Decision Making - Medical Decision Making 25 or female presenting today for chief complaint of shortness of breath 4 days. Chest x-ray no pneumothorax, no infiltrates. Patient has minimal air movement on lung exam after 2 additional treatments patient continues to have minimal movement. pateitn given magnesium. will be admitted for further treatments. Patient was also complaining of headache, which resolved, CT was (- ). No focal deficits. Patient agreeable to admission for further treatments. Dr. Almendarez agreeable to care plan. Pt BP improved without treatment. - Lab Data Result diagrams: 04/06/20 14:54 04/06/20 14:54 Lab Results 04/06/20 04/06/20 04/06/20 Range/Units 14:54 14:54 16:22 WBC 8.2 (3.8-10.6) k/uL RBC 4.56 (3.80-5.40) m/uL Hgb 13.1 (11.4-16.0) gm/dL Hct 40.2 (34.0-46.0) % MCV 88.1 (80.0-100.0) fL MCH 28.8 (25.0-35.0) pg MCHC 32.7 (31.0-37.0) g/dL RDW 17.0 H (11.5-15.5) % Plt Count 259 (150-450) k/uL Neutrophils % 58 % Lymphocytes % 29 % Monocytes % 5 % Eosinophils % 7 % Basophils % 0 % Neutrophils # 4.8 (1.3-7.7) k/uL Lymphocytes # 2.4 (1.0-4.8) k/uL Monocytes # 0.4 (0-1.0) k/uL Eosinophils # 0.5 (0-0.7) k/uL Basophils # 0.0 (0-0.2) k/uL Anisocytosis Slight Sodium 138 (137-145) mmol/L Potassium 4.3 (3.5-5.1) mmol/L Chloride 104 (98-107) mmol/L Carbon Dioxide 27 (22-30) mmol/L Anion Gap 7 mmol/L BUN 14 (7-17) mg/dL Creatinine 0.75 (0.52-1.04) mg/dL Est GFR (CKD-EPI)AfAm >90 (>60 ml/min/1.73 sqM) Est GFR (CKD-EPI)NonAf >90 (>60 ml/min/1.73 sqM) Glucose 91 (74-99) mg/dL Calcium 9.7 (8.4-10.2) mg/dL Total Bilirubin 0.3 (0.2-1.3) mg/dL AST 20 (14-36) U/L ALT 11 (4-34) U/L Alkaline Phosphatase 95 (38-126) U/L Total Protein 7.3 (6.3-8.2) g/dL Albumin 4.4 (3.5-5.0) g/dL Urine HCG, Qual Not Detected (Not Detectd) Disposition Clinical Impression: Asthma exacerbation Disposition: ADMITTED IP TO THIS HOSP Condition: Stable Is patient prescribed a controlled substance at d/c from ED?: No Time of Disposition: 17:32 Decision to Admit Reason: Admit from EC Decision Date: 04/06/20 Decision Time: 17:33
--- NOTE | 2020-04-06 17:11 | CT ---
EXAMINATION TYPE: CT brain wo con DATE OF EXAM: 04/06/2020 COMPARISON: 05/10/2008 HISTORY: headache, htn CT DLP: 1098.4 mGycm Automated exposure control for dose reduction was used. Ventricles and sulci appear normal. There is no mass effect nor midline shift. There is no sign of in tracranial hemorrhage. The calvarium is intact. There is no evidence of cerebral edema. IMPRESSION: Normal unenhanced head CT scan.
[2020-04-06] MEDS ORDERED: MAGNESIUM SULFATE-D5W PMX 1 GM in DEXTROSE/WATER 1 100ML.BAG IVPB ONE (17:23)
[2020-04-06] MEDS: ALBUTEROL NEBULIZED 2.5 MG/3 ML INHALATION SCH (20:17)
[2020-04-06] MEDS ORDERED: ACETAMINOPHEN TAB 325 MG TAB PO PRN (21:09)
[2020-04-06] MEDS: KETOROLAC 15 MG/ML 1 ML VIAL IVP PRN (21:20)
[2020-04-06] MEDS ORDERED: ONDANSETRON 4 MG/2 ML VIAL IVP PRN (21:33)
[2020-04-06] MEDS ORDERED: MECLIZINE 12.5 MG TAB PO PRN (21:34)
[2020-04-06] MEDS: IPRATROPIUM-ALBUTEROL 3 ML NEB INHALATION PRN (23:34)
[2020-04-07] MEDS: KETOROLAC 15 MG/ML 1 ML VIAL IVP PRN ×2 (02:35→07:48)
[2020-04-07 03:08] VITALS: TEMP 97.7
[2020-04-07] MEDS: IPRATROPIUM-ALBUTEROL 3 ML NEB INHALATION PRN (04:31)
[2020-04-07] MEDS: ALBUTEROL NEBULIZED 2.5 MG/3 ML INHALATION SCH ×2 (07:35→11:13)
[2020-04-07 08:02] VITALS: BP 122/56; RESP 16
[2020-04-07 11:16] VITALS: PULSE 76
[2020-04-07] MEDS ORDERED: methylPREDNISolone SOD SUCCI 125 MG/2 ML VIAL IV STA (11:33)
--- NOTE | 2020-04-07 12:37 | P.HPIM ---
History of Present Illness 25yo female presented for chief complaint of shortness of breath. Patient states she has history of severe asthma. She states she's been hospitalized in the past for this. Denies previous intubations. Patient states that she use her nebulizer 4 times before coming to the emergency department and has had shortness of breath for the past 5 days she states it feels identical to when she's had asthma exacerbation in the past. . Patient had headache. she states she has had them before and is not sure if its secondary to the breathing treatments. patient has no additional complaints. Denies steroid use currently. Denies leg swelling, pain with deep inspiration, she denies is being the worst headache of her life she denies sudden onset, denies visual changes or weakness of the upper or lower extremities or sensation deficit she states she feels slightly lightheaded but she is not sure if this is secondary to multiple moi atments. Patient appears well on arrival in no acute respiratory distress. Patient usually has his exacerbation during this time. Patient wanted to go home on exam patient a moment is very minimal will ablate the patient if he is saturating okay patient will be discharged. Patient is also complaining of pleuritic/musculoskeletal chest pain ,obtain a d-dimer if that's negative patient will be discharged with weaning dose of steroids. Review of Systems REVIEW OF SYSTEMS: CONSTITUTIONAL: No fever, no malaise, no fatigue. HEENT: No recent visual problems or hearing problems. Denied any sore throat. CARDIOVASCULAR: No chest pain, orthopnea, PND, no palpitations, no syncope. PULMONARY: As mentioned in HPI GASTROINTESTINAL: No diarrhea, no nausea, no vomiting, no abdominal pain. NEUROLOGICAL: No headaches, no weakness, no numbness. HEMATOLOGICAL: Denies any bleeding or petechiae. GENITOURINARY: Denies any burning micturition, frequency, or urgency. MUSCULOSKELETAL/RHEUMATOLOGICAL: Denies any joint pain, swelling, or any muscle pain. ENDOCRINE: Denies any polyuria or polydipsia. The rest of the 14-point review of systems is negative. Past Medical History Past Medical History: Asthma Additional Past Medical History / Comment(s): Chronic asthma, lung collapse (April), History of Any Multi-Drug Resistant Organisms: None Reported Past Surgical History: Section Additional Past Surgical History / Comment(s): [place] tooth extraction , Past Anesthesia/Blood Transfusion Reactions: No Reported Reaction Additional Past Anesthesia/Blood Transfusion Reaction / Comment(s): no anesthesia or blood before Past Psychological History: No Psychological Hx Reported Smoking Status: Never smoker Past Alcohol Use History: None Reported Past Drug Use History: None Reported - Past Family History Father Family Medical History: Asthma Mother Family Medical History: No Reported History Medications and Allergies Home Medications Medication Instructions Recorded Confirmed Type Albuterol Inhaler [Ventolin Hfa 2 puff INHALATION RT-QID PRN #1 12/02/19 04/06/20 Rx Inhaler] inhaler Albuterol Nebulized [Ventolin 2.5 mg INHALATION RT-QID PRN 04/06/20 04/06/20 History Nebulized] Beclomethasone Dipropionate [Qvar 2 puff INHALATION RT-BID 04/06/20 04/06/20 History 40 mcg Redihaler] Budesonide [Pulmicort] 0.25 mg INHALATION RT-BID 04/06/20 04/06/20 History Montelukast [Singulair] 10 mg PO DAILY 04/06/20 04/06/20 History Omalizumab [Xolair] 150 mg SQ Q14D 04/06/20 04/06/20 History Famotidine [Pepcid] 20 mg PO BID #30 tablet 04/07/20 Rx predniSONE 10 mg PO DAILY #30 tab 04/07/20 Rx traMADol HCL [Ultram] 50 mg PO Q4HR PRN 3 Days #18 tab 04/07/20 Rx Allergies Allergy/AdvReac Type Severity Reaction Status Date / Time amoxicillin [Amoxicillin] Allergy Anaphylaxis Verified 04/06/20 13:57 Physical Exam Vitals: Vital Signs Temp Pulse Pulse Resp BP BP Pulse Ox 04/07/20 11:24 76 04/07/20 11:14 76 04/07/20 08:02 77 16 122/56 99 04/07/20 07:48 80 04/07/20 07:35 76 04/07/20 04:46 80 04/07/20 04:31 80 04/07/20 03:00 97.7 F 92 17 114/64 97 04/06/20 23:45 118 H 04/06/20 23:34 118 H 16 04/06/20 21:00 98 F 112 H 18 149/82 98 04/06/20 20:29 106 H 04/06/20 20:19 119 H 04/06/20 18:39 152/95 04/06/20 18:19 97.9 F 93 18 164/93 93 L 04/06/20 18:09 80 04/06/20 18:07 98.1 F 77 17 98 04/06/20 18:05 98 04/06/20 17:58 82 04/06/20 17:17 120/80 04/06/20 16:57 84 04/06/20 16:43 80 04/06/20 16:00 19 04/06/20 15:16 82 04/06/20 15:14 83 18 144/102 100 04/06/20 15:03 84 04/06/20 13:55 99.2 F 79 22 147/93 100 Intake and Output 04/06/20 04/07/20 04/07/20 22:59 06:59 14:59 Intake Total 500 Balance 500 Intake: Oral 500 Other: Voiding Method Toilet Toilet # Voids 2 2 1 Weight 45.359 kg PHYSICAL EXAMINATION: GENERAL: The patient is alert and oriented x3, not in any acute distress. Well developed, well nourished. HEENT: Pupils are round and equally reacting to light. EOMI. No scleral icterus. No conjunctival pallor. Normocephalic, atraumatic. No pharyngeal erythema. No thyromegaly. CARDIOVASCULAR: S1 and S2 present. No murmurs, rubs, or gallops. PULMONARY: Expiratory wheezing with very minimal air entry into bilateral lung schulte ABDOMEN: Soft, nontender, nondistended, normoactive bowel sounds. No palpable organomegaly. MUSCULOSKELETAL: No joint swelling or deformity. EXTREMITIES: No cyanosis, clubbing, or pedal edema. NEUROLOGICAL: Gross neurological examination did not reveal any focal deficits. SKIN: No rashes. Results CBC & Chem 7: 04/06/20 14:54 04/06/20 14:54 Labs: Abnormal Lab Results - Last 24 Hours (Table) 04/06/20 Range/Units 14:54 RDW 17.0 H (11.5-15.5) % Thrombosis Risk Factor Assmnt - Choose All That Apply Any of the Below Risk Factors Present?: No Assessment and Plan Plan: -Status asthmaticus patient appears to have moderate persistent asthma at baseline. Patient will be given another dose of IV steroids and recommended her to stay in the hospital of unknown night but she prefers to go home patient will be discharged on weaning dose of steroids and was to come back if her shortness of breath gets worse. Patient is on Xolair injections once in every 2 weeks -Chest pain is pleuritic and musculoskeletal nature from coughing patient had a pneumothorax in the past symptoms and patient was having this pain patient does take Motrin at home and Tylenol at home without any significant relief in pain patient will be prescribed tramadol and discussed with her regarding addiction potential of tramadol and asked her to avoid it if it's not needed. GI prophylaxis with Pepcid -Rule out PE will obtain a d-dimer that's negative patient will be discharged.
--- NOTE | 2020-04-07 12:38 | P.DS ---
Providers Date of admission: 04/06/20 17:33 Attending physician: Clint Mcleod Primary care physician: [facility] Hospital Course: Please refer to my HPI for further details Patient Condition at Discharge: Stable Plan - Discharge Summary New Discharge Prescriptions: New Famotidine [Pepcid] 20 mg PO BID #30 tablet predniSONE 10 mg PO DAILY #30 tab traMADol HCL [Ultram] 50 mg PO Q4HR PRN 3 Days #18 tab PRN Reason: Pain Discontinued Ibuprofen [Motrin Ib] 200 mg PO Q6H PRN PRN Reason: Pain No Action Albuterol Inhaler [Ventolin Hfa Inhaler] 2 puff INHALATION RT-QID PRN #1 inhaler PRN Reason: Shortness Of Breath Or Wheezing Omalizumab [Xolair] 150 mg SQ Q14D Budesonide [Pulmicort] 0.25 mg INHALATION RT-BID Albuterol Nebulized [Ventolin Nebulized] 2.5 mg INHALATION RT-QID PRN PRN Reason: Shortness Of Breath Montelukast [Singulair] 10 mg PO DAILY Beclomethasone Dipropionate [Qvar 40 mcg Redihaler] 2 puff INHALATION RT-BID Discharge Medication List Albuterol Inhaler [Ventolin Hfa Inhaler] 2 puff INHALATION RT-QID PRN #1 inhaler 12/02/19 [Rx] Albuterol Nebulized [Ventolin Nebulized] 2.5 mg INHALATION RT-QID PRN 04/06/20 [History] Beclomethasone Dipropionate [Qvar 40 mcg Redihaler] 2 puff INHALATION RT-BID 04/06/20 [History] Budesonide [Pulmicort] 0.25 mg INHALATION RT-BID 04/06/20 [History] Montelukast [Singulair] 10 mg PO DAILY 04/06/20 [History] Omalizumab [Xolair] 150 mg SQ Q14D 04/06/20 [History] Famotidine [Pepcid] 20 mg PO BID #30 tablet 04/07/20 [Rx] predniSONE 10 mg PO DAILY #30 tab 04/07/20 [Rx] traMADol HCL [Ultram] 50 mg PO Q4HR PRN 3 Days #18 tab 04/07/20 [Rx] Follow up Appointment(s)/Referral(s): Eliceo Nunez MD [STAFF PHYSICIAN] - 04/22/20 1:30 pm Hyacinth Montero MD [Primary Care Provider] - 3 Days Patient Instructions/Handouts: Asthma (DC) Discharge Disposition: HOME SELF-CARE
== END 2020-04-07 13:01 | disposition home or self-care (01) ==
LOC: EC 13:52 → 1SOBS 17:33
PROVIDERS: ADMIT Hospitalist; ATTEND Hospitalist
DX: J45.41 Moderate persistent asthma with (acute) exacerbation (principal); Z79.899 Other long term (current) drug therapy; Z82.5 Family history of asthma and other chronic lower respiratory diseases
CPT/HCPCS: 96361 ×3; 96375 ×2; 96376 ×2; 96365; 99285; 36415; 94640 ×4; 85379; 80053; 85025; 81025; 71046; 70450; G0378 ×2; J2930 ×2; J2405; J3475; J1885 ×2; J1170

== ENCOUNTER 2020-04-30 14:47 | Inpatient (IN) | payer OTHER ==
[2020-04-30 16:40] LABS: Anisocytosis Slight; Basophils % (A) 0 %; Eosinophils # (A) 0.3 k/uL (0-0.7); Eosinophils % (A) 3 %; HCT 46.4 % (34.0-46.0); HGB 14.5 gm/dL (11.4-16.0); Lymphocytes # (A) 1.6 k/uL (1.0-4.8); Lymphocytes % (A) 14 %; MCH 28.5 pg (25.0-35.0); MCHC 31.3 g/dL (31.0-37.0); MCV 90.9 fL (80.0-100.0); Mean Platelet Volume 8.8; Monocytes # (A) 0.3 k/uL (0-1.0); Monocytes % (A) 3 %; Neutrophils # (A) 9.3 k/uL (1.3-7.7); Neutrophils % (A) 80 %; Platelet Count 294 k/uL (150-450); RBC 5.11 m/uL (3.80-5.40); RDW 16.4 % (11.5-15.5); WBC 11.7 k/uL (3.8-10.6)
[2020-04-30] MEDS ORDERED: HYDROmorphone 0.5 MG/0.5 ML SYRINGE IVP STA ×2 (17:06→19:36)
[2020-04-30 17:10] LABS: Appearance,Urine Clear (Clear); Bilirubin,Urine Negative (Negative); Blood,Urine Small (Negative); Color,Urine Yellow; Glucose,Urine (UA) Negative (Negative); Ketones,Urine Negative (Negative); Leukocyte Esterase,Urine Small (Negative); Mucus,Urine Many /hpf; Nitrite,Urine Negative (Negative); Protein,Urine Trace (Negative); RBC,Urine 1 /hpf (0-5); Squamous Epithelial Cell,Urine 1 /hpf (0-4); Urobilinogen,Urine <2.0 mg/dL (<2.0); WBC,Urine 6 /hpf (0-5)
[2020-04-30 17:16] LABS: ALT 12 U/L (4-34); AST 31 U/L (14-36); African American GFR (CKD) >90 (>60 ml/min/1.73 sqM); Albumin 5.5 g/dL (3.5-5.0); Alkaline Phosphatase 141 U/L (38-126); Anion Gap 10 mmol/L; Blood Urea Nitrogen 9 mg/dL (7-17); Calcium 10.6 mg/dL (8.4-10.2); Carbon Dioxide 24 mmol/L (22-30); Chloride 104 mmol/L (98-107); Glucose 93 mg/dL (74-99); Non-African American GFR(CKD) >90 (>60 ml/min/1.73 sqM); Potassium 4.5 mmol/L (3.5-5.1); Sodium 138 mmol/L (137-145); Total Bilirubin 0.7 mg/dL (0.2-1.3); Total Protein 9.9 g/dL (6.3-8.2)
--- NOTE | 2020-04-30 18:06 | XR ---
EXAMINATION TYPE: XR chest 2V DATE OF EXAM: 04/30/2020 COMPARISON: 04/06/2020 INDICATION: Asthma TECHNIQUE: Frontal and lateral views of the chest are obtained. FINDINGS: The heart size is normal. The pulmonary vasculature is normal. The lungs are clear. Is hyperinflation and flattening the diaphragms which can be related to the pat ient's reported asthma. IMPRESSION: 1. No acute pulmonary process.
--- NOTE | 2020-04-30 18:24 | CT ---
EXAMINATION TYPE: CT brain wo con DATE OF EXAM: 04/30/2020 COMPARISON: 04/06/2020 INDICATION: Headache no injury. DLP: 1025.4 mGycm, Automated exposure control for dose reduction was used. CONTRAST: None CT of the brain is performed utilizing 3 mm thick sections through the posterior fossa and 3 mm thick sections through the remaining calvarium. Study is performed within 24 hours of arrival to the hosp [facility]. No abnormal hyperdensity is present to suggest an acute intracranial hemorrhage. No mass lesion is evident. No acute infarcts are evident. Ventricles and sulci are appropriate for the patient age. Paranasal sinuses and mastoid air cells within the [id number] are clear. IMPRESSIONS: 1. No acute intracranial process.
[2020-04-30] MEDS ORDERED: ONDANSETRON 4 MG/2 ML VIAL IVP STA (18:35)
--- NOTE | 2020-04-30 19:24 | ED ---
General Adult HPI - General Source: patient, RN notes reviewed, old records reviewed Mode of arrival: ambulatory Limitations: no limitations <Aniket Herrmann - Last Filed: 04/30/20 19:22> <Negro Estrada - Last Filed: 04/30/20 21:44> - General Chief complaint: Headache Stated complaint: headache/sob Time Seen by Provider: 04/30/20 15:41 - History of Present Illness Initial comments: 25-year-old female patient ED for evaluation of headache. 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 4 symptoms started last night. Patient reports that it feels sharp. Reports she had some nausea and some vomiting. Patient does have history of pneumonia with a or thorax in the past. Denies shortness breath or chest pain this time. Patient will take anything for her headache. He denies any other acute complaints. (Aniket Herrmann) - Related Data Home Medications Medication Instructions Recorded Confirmed Albuterol Nebulized [Ventolin 2.5 mg INHALATION RT-QID PRN 04/06/20 04/30/20 Nebulized] Beclomethasone Dipropionate [Qvar 2 puff INHALATION RT-BID 04/06/20 04/30/20 40 mcg Redihaler] Budesonide [Pulmicort] 0.25 mg INHALATION RT-BID 04/06/20 04/30/20 Montelukast [Singulair] 10 mg PO DAILY 04/06/20 04/30/20 Omalizumab [Xolair] 150 mg SQ Q14D 04/06/20 04/30/20 Previous Rx's Medication Instructions Recorded Albuterol Inhaler [Ventolin Hfa 2 puff INHALATION RT-QID PRN #1 12/02/19 Inhaler] inhaler Famotidine [Pepcid] 20 mg PO BID #30 tablet 04/07/20 traMADol HCL [Ultram] 50 mg PO Q4HR PRN 3 Days #18 tab 04/07/20 Allergies Allergy/AdvReac Type Severity Reaction Status Date / Time amoxicillin [Amoxicillin] Allergy Anaphylaxis Verified 04/30/20 16:41 Review of Systems ROS Other: All systems not noted in ROS Statement are negative. <Aniket Herrmann - Last Filed: 04/30/20 19:22> ROS Other: All systems not noted in ROS Statement are negative. <Negro Estrada - Last Filed: 04/30/20 21:44> ROS Statement: Those systems with pertinent positive or pertinent negative responses have been documented in the HPI. Past Medical History Past Medical History: Asthma Additional Past Medical History / Comment(s): Chronic asthma, lung collapse (April), History of Any Multi-Drug Resistant Organisms: None Reported Past Surgical History: Section Additional Past Surgical History / Comment(s): [place] tooth extraction , Past Anesthesia/Blood Transfusion Reactions: No Reported Reaction Additional Past Anesthesia/Blood Transfusion Reaction / Comment(s): no anesthesia or blood before Past Psychological History: No Psychological Hx Reported Smoking Status: Never smoker Past Alcohol Use History: None Reported Past Drug Use History: None Reported - Past Family History Father Family Medical History: Asthma Mother Family Medical History: No Reported History <Aniket Herrmann - Last Filed: 04/30/20 19:22> General Exam Limitations: no limitations <Aniket Herrmann - Last Filed: 04/30/20 19:22> - General Exam Comments Initial Comments: Constitutional: NAD, AOX3, Pt has pleasant affect. HEENT: NC/AT, trachea midline, neck supple, no lymphadenopathy. Posterior pharynx non erythematous, without exudates. External ears appear normal, without discharge. Mucous membranes moist. Eyes PERRLA, EOM intact. There is no scleral icterus. No pallor noted. Cardiopulmonary: RRR, no murmurs, rubs or gallops, no JVD noted. Lungs CTAB in anterior and posterior schulte. No peripheral edema. Abdominal exam: Abdomen soft and non-distended. Abdomen non-tender to palpation in all 4 quadrants. Bowel sounds active in LLQ. No hepatosplenomegaly. No ecchymosis Neuro: CN II-XII intact. No nuchal rigidity. No raccon eyes, no brunner sign, no hemotympanum. No cervical spinal tenderness. MSK: No posterior calf tenderness bilaterally, homans sign negative bilaterally. Posterior tibialis and radial pulse +2 bilaterally. Sensation intact in upper and lower extremities. Full active ROM in upper and lower extremities, 5/5 stregnth. (Aniket Herrmann) Course Vital Signs 04/30/20 04/30/20 04/30/20 14:58 18:44 19:33 Temperature 98.6 F Pulse Rate 111 H 80 93 Respiratory 22 18 18 Rate Blood Pressure 151/86 138/112 143/114 O2 Sat by Pulse 99 100 100 Oximetry Medical Decision Making - Lab Data Result diagrams: 04/30/20 16:31 04/30/20 16:59 <Aniket Herrmann - Last Filed: 04/30/20 19:22> - Lab Data Result diagrams: 04/30/20 16:31 04/30/20 16:59 - Radiology Data Radiology results: report reviewed (Computed tomography scan of the brain shows no acute process. CT angios shows no abnormality.), image reviewed (Chest x-ray shows no acute process) <Negro Estrada - Last Filed: 04/30/20 21:44> - Medical Decision Making social female patient ED for headache. Patient also reports that she feels a left-sided little bit weak. Neurologic exam is intact and strength is equal bilaterally on exam. After investigations were obtained and are overall unremarkable. CT brain without contrast is obtained and is negative. Patient had significant difficulty with IV access. Multiple IVs were attempted and infiltrated prior to CTA. This time patient was signed out to Dr. Estrada pending CT they have brain. Patient headache has improved. (Aniket Herrmann) Patient reevaluated by myself, Dr. Estrada. Patient states gradual onset headache started yesterday. Patient states she did feel weak today and had difficulty holding things. He should and agrees this is not evident on exam at this time. She makes 5/5 strength throughout. Sensation intact. No facial weakness. Cranial nerves II-12 grossly intact. Patient states headache is moderate at this time. Patient's blood pressure remained somewhat high here patient states she does check her blood pressure at home sometimes. Patient updated on results and plan. No signs of stroke at this time. Symptoms may have been related to atypical headache however patient can value from neurology evaluation. Case was discussed with Dr. Mcleod, covering for Dr. Valderrama, who will admit. I do agree with PA findings. This includes diagnostic intubation and treatment plan. (Negro Estrada) - Lab Data Lab Results 04/30/20 04/30/20 04/30/20 Range/Units 16:31 16:32 16:32 WBC 11.7 H (3.8-10.6) k/uL RBC 5.11 (3.80-5.40) m/uL Hgb 14.5 (11.4-16.0) gm/dL Hct 46.4 H (34.0-46.0) % MCV 90.9 (80.0-100.0) fL MCH 28.5 (25.0-35.0) pg MCHC 31.3 (31.0-37.0) g/dL RDW 16.4 H (11.5-15.5) % Plt Count 294 (150-450) k/uL Neutrophils % 80 % Lymphocytes % 14 % Monocytes % 3 % Eosinophils % 3 % Basophils % 0 % Neutrophils # 9.3 H (1.3-7.7) k/uL Lymphocytes # 1.6 (1.0-4.8) k/uL Monocytes # 0.3 (0-1.0) k/uL Eosinophils # 0.3 (0-0.7) k/uL Basophils # 0.0 (0-0.2) k/uL Anisocytosis Slight D-Dimer (<0.60) mg/L FEU Sodium (137-145) mmol/L Potassium (3.5-5.1) mmol/L Chloride (98-107) mmol/L Carbon Dioxide (22-30) mmol/L Anion Gap mmol/L BUN (7-17) mg/dL Creatinine (0.52-1.04) mg/dL Est GFR (CKD-EPI)AfAm (>60 ml/min/1.73 sqM) Est GFR (CKD-EPI)NonAf (>60 ml/min/1.73 sqM) Glucose (74-99) mg/dL Calcium (8.4-10.2) mg/dL Total Bilirubin (0.2-1.3) mg/dL AST (14-36) U/L ALT (4-34) U/L Alkaline Phosphatase (38-126) U/L Total Protein (6.3-8.2) g/dL Albumin (3.5-5.0) g/dL Urine Color Yellow Urine Appearance Clear (Clear) Urine pH 6.0 (5.0-8.0) Ur Specific [place] 1.020 (1.001-1.035) Urine Protein Trace H (Negative) Urine Glucose (UA) Negative (Negative) Urine Ketones Negative (Negative) Urine Blood Small H (Negative) Urine Nitrite Negative (Negative) Urine Bilirubin Negative (Negative) Urine Urobilinogen <2.0 (<2.0) mg/dL Ur Leukocyte Esterase Small H (Negative) Urine RBC 1 (0-5) /hpf Urine WBC 6 H (0-5) /hpf Ur Squamous Epith Cells 1 (0-4) /hpf Urine Mucus Many H (None) /hpf Urine HCG, Qual Not Detected (Not Detectd) 04/30/20 04/30/20 Range/Units 16:45 16:59 WBC (3.8-10.6) k/uL RBC (3.80-5.40) m/uL Hgb (11.4-16.0) gm/dL Hct (34.0-46.0) % MCV (80.0-100.0) fL MCH (25.0-35.0) pg MCHC (31.0-37.0) g/dL RDW (11.5-15.5) % Plt Count (150-450) k/uL Neutrophils % % Lymphocytes % % Monocytes % % Eosinophils % % Basophils % % Neutrophils # (1.3-7.7) k/uL Lymphocytes # (1.0-4.8) k/uL Monocytes # (0-1.0) k/uL Eosinophils # (0-0.7) k/uL Basophils # (0-0.2) k/uL Anisocytosis D-Dimer <0.17 (<0.60) mg/L FEU Sodium 138 (137-145) mmol/L Potassium 4.5 (3.5-5.1) mmol/L Chloride 104 (98-107) mmol/L Carbon Dioxide 24 (22-30) mmol/L Anion Gap 10 mmol/L BUN 9 (7-17) mg/dL Creatinine 0.67 (0.52-1.04) mg/dL Est GFR (CKD-EPI)AfAm >90 (>60 ml/min/1.73 sqM) Est GFR (CKD-EPI)NonAf >90 (>60 ml/min/1.73 sqM) Glucose 93 (74-99) mg/dL Calcium 10.6 H (8.4-10.2) mg/dL Total Bilirubin 0.7 (0.2-1.3) mg/dL AST 31 (14-36) U/L ALT 12 (4-34) U/L Alkaline Phosphatase 141 H (38-126) U/L Total Protein 9.9 H (6.3-8.2) g/dL Albumin 5.5 H (3.5-5.0) g/dL Urine Color Urine Appearance (Clear) Urine pH (5.0-8.0) Ur Specific [place] (1.001-1.035) Urine Protein (Negative) Urine Glucose (UA) (Negative) Urine Ketones (Negative) Urine Blood (Negative) Urine Nitrite (Negative) Urine Bilirubin (Negative) Urine Urobilinogen (<2.0) mg/dL Ur Leukocyte Esterase (Negative) Urine RBC (0-5) /hpf Urine WBC (0-5) /hpf Ur Squamous Epith Cells (0-4) /hpf Urine Mucus (None) /hpf Urine HCG, Qual (Not Detectd) Disposition <Aniket Herrmann - Last Filed: 04/30/20 19:22> Is patient prescribed a controlled substance at d/c from ED?: No Decision Time: 21:44 <Negro Estrada - Last Filed: 04/30/20 21:44> Clinical Impression: Cephalgia, Hypertension Disposition: ADMITTED IP TO THIS HOSP Referrals: Hyacinth Montero MD [Primary Care Provider] - 1-2 days
[2020-04-30] MEDS ORDERED: METOCLOPRAMIDE 5 MG/ML 2 ML VIAL IVP STA (19:36)
--- NOTE | 2020-04-30 20:41 | CT ---
EXAMINATION TYPE: CT angio head neck DATE OF EXAM: 04/30/2020 HISTORY: Headache and nausea. COMPARISON: None CT DLP: 302.8 mGycm. Automated Exposure Control for Dose Reduction was Utilized. TECHNIQUE: CTA scan of the neck is performed with IV Contrast, patient injected with 65ml mL of [place] ue 370, axial images are obtained, coronal and sagittal reformatted images are reviewed. Three-D imag es could not be performed at this time due to technical function. FINDINGS: Carotid/Vascular Structures: There is a three-vessel arch. The vertebral arteries are codominant. Com mon carotid arteries bifurcate normally into internal and external carotid arteries. Internal carotid arteries are patent to the skull base. Cervical of [place]: Vertebral basilar system appears normal. Posterior cerebral vasculature is unrema rkable. Internal carotid arteries bifurcate normally into A1 and M1 segments. A2 segments are normal. The anterior communicating artery is patent. Left Posterior communicating artery is patent. Right po sterior communicating artery is likely patent. Other: There is extravasation of saline into the hand with hand injection. Different access was requi red. IMPRESSION: 1. No flow-limiting stenosis bilateral carotid bifurcations. 2. Normal [place]
[2020-04-30] MEDS ORDERED: amLODIPine 5 MG TAB PO STA (21:05)
[2020-04-30] MEDS ORDERED: ENALAPRILAT 1.25 MG/ML 1 ML VIAL IVP PRN (21:47)
[2020-04-30] MEDS ORDERED: ASPIRIN 325 MG TAB PO STA (21:48)
[2020-04-30] MEDS: SODIUM CHLORIDE 0.9% 1,000 ML IV SCH (22:13)
[2020-04-30] MEDS: ACETAMINOPHEN TAB 325 MG TAB PO PRN (22:13)
[2020-05-01] MEDS: MORPHINE SULFATE 4 MG/ML SYRINGE IVP PRN ×5 (00:40→20:17)
[2020-05-01] MEDS: ACETAMINOPHEN TAB 325 MG TAB PO PRN (02:55)
[2020-05-01 02:56] LABS: Cholesterol 270 mg/dL (<200); HDL Cholesterol 89 mg/dL (40-60); LDL Cholesterol,Calculated 164 mg/dL (0-99); Triglycerides 87 mg/dL (<150)
[2020-05-01] MEDS ORDERED: ONDANSETRON 4 MG/2 ML VIAL IVP STA (06:46)
[2020-05-01] MEDS: ASPIRIN 325 MG TAB PO SCH (07:25)
[2020-05-01] MEDS: SODIUM CHLORIDE 0.9% 1,000 ML IV SCH ×2 (08:28→18:10)
[2020-05-01] MEDS: HEPARIN SODIUM,PORCINE 5,000 UNIT/ML 1 ML VIAL SQ SCH ×2 (08:28→20:11)
[2020-05-01] MEDS ORDERED: FAMOTIDINE 20 MG/2 ML VIAL IV SCH (09:00)
--- NOTE | 2020-05-01 09:47 | P.HPIM ---
History of Present Illness This is a pleasant 25 years old -[place] female with past medical history of chronic asthma and preeclampsia, she has a of 5 week of age. She is a patient of Dr. Montero. Patient presents because of 2 days of headache and left arm weakness, patient started having left side head and neck pain about 9/10 in severity but like a pressure, pain was radiating to her left neck and associated with left arm weakness as per patient, she waited overnight however her symptoms does not improve by yesterday afternoon so she decided to come to the hospital, now she says that her headache is much improved especially in the left frontal area however she still complaining from pain in the left neck area, her left arm is only mildly weak but improved since yesterday. However an exam no weakness is appreciated but he she has tenderness in the left neck Also on admission she was complaining from nausea vomiting Becky blurred vision with some dizziness, all the symptoms are also improvement but not completely resolved this morning as per patient. Also she complains from some tingling in her left hand She denies chest pain or coughing or dyspnea, no change in urine or bowel habits. She denies depression or suicidal ideation Vitas looks stable. Blood pressure on admission was 151/86, currently is 133/78. No fever. Labs showing mild leukocytosis of 11.7 K, d-dimer is negative less than 0.17, BMP is unremarkable except for slightly elevated calcium at 10.6 (reference 8.4-10.2). AST/ALT are not elevated. Urinalysis is not suspicious of infection. chest x-ray: No acute process. CT of the brain: No acute process by radiologist. CTA of the head and neck she went normal [place], no stenosis of bilateral carotid arteries In the emergency room she received aspirin 325 mg, Norvasc 2.5 mg, Dilaudid, Reglan and Zofran. Also she was started on normal saline at 100 mL per hour neurologist has been consulted Review of Systems CONSTITUTIONAL: No fever, no malaise, no fatigue. HEENT: No recent visual problems or hearing problems. Denied any sore throat. CARDIOVASCULAR: No orthopnea, PND, no palpitations, no syncope. PULMONARY: No shortness of breath, no cough, no hemoptysis. GASTROINTESTINAL: No diarrhea, no nausea, no vomiting, no abdominal pain. Normoactive bowel sounds. -NEUROLOGICAL: As above. HEMATOLOGICAL: Denies any bleeding or petechiae. GENITOURINARY: Denies any burning micturition, frequency, or urgency. MUSCULOSKELETAL/RHEUMATOLOGICAL: Denies any joint pain, swelling, or any muscle pain. ENDOCRINE: Denies any polyuria or polydipsia. Past Medical History Past Medical History: Asthma Additional Past Medical History / Comment(s): Chronic asthma, lung collapse (April), preclampsia History of Any Multi-Drug Resistant Organisms: None Reported Past Surgical History: Section Additional Past Surgical History / Comment(s): [place] tooth extraction Past Anesthesia/Blood Transfusion Reactions: No Reported Reaction Additional Past Anesthesia/Blood Transfusion Reaction / Comment(s): no anesthesia or blood before Past Psychological History: No Psychological Hx Reported Smoking Status: Never smoker Past Alcohol Use History: None Reported Past Drug Use History: None Reported - Past Family History Father Family Medical History: Asthma Mother Family Medical History: No Reported History Medications and Allergies Home Medications Medication Instructions Recorded Confirmed Type Albuterol Inhaler [Ventolin Hfa 2 puff INHALATION RT-QID PRN #1 12/02/19 04/30/20 Rx Inhaler] inhaler Albuterol Nebulized [Ventolin 2.5 mg INHALATION RT-QID PRN 04/06/20 04/30/20 History Nebulized] Beclomethasone Dipropionate [Qvar 2 puff INHALATION RT-BID 04/06/20 04/30/20 History 40 mcg Redihaler] Budesonide [Pulmicort] 0.25 mg INHALATION RT-BID 04/06/20 04/30/20 History Montelukast [Singulair] 10 mg PO DAILY 04/06/20 04/30/20 History Omalizumab [Xolair] 150 mg SQ Q14D 04/06/20 04/30/20 History Famotidine [Pepcid] 20 mg PO BID #30 tablet 04/07/20 04/30/20 Rx traMADol HCL [Ultram] 50 mg PO Q4HR PRN 3 Days #18 tab 04/07/20 04/30/20 Rx Allergies Allergy/AdvReac Type Severity Reaction Status Date / Time amoxicillin [Amoxicillin] Allergy Anaphylaxis Verified 04/30/20 16:41 Physical Exam Vitals: Vital Signs Temp Pulse Resp BP Pulse Ox 05/01/20 06:25 98.1 F 80 15 133/78 98 05/01/20 05:06 98.0 F 84 15 136/74 97 05/01/20 02:53 98.1 F 80 16 136/88 98 05/01/20 00:38 97.5 F L 84 15 117/75 98 04/30/20 23:13 98.3 F 84 16 130/97 99 04/30/20 22:17 98.4 F 87 19 122/92 98 04/30/20 19:33 93 18 143/114 100 04/30/20 18:44 80 18 138/112 100 04/30/20 14:58 98.6 F 111 H 22 151/86 99 Intake and Output 04/30/20 05/01/20 05/01/20 22:59 06:59 14:59 Output Total 200 Balance -200 Output: Emesis 200 Other: Voiding Method Toilet # Voids 2 Weight 45.813 kg GENERAL: The patient is alert and oriented x3, not in any acute distress. Well developed, well nourished. HEENT: Pupils are round and equally reacting to light. EOMI. No scleral icterus. No conjunctival pallor. Normocephalic, atraumatic. No pharyngeal erythema. No thyromegaly. CARDIOVASCULAR: S1 and S2 present. No murmurs, rubs, or gallops. PULMONARY: Chest is clear to auscultation, no wheezing or crackles. ABDOMEN: Soft, nontender, nondistended, normoactive bowel sounds. No palpable organomegaly. MUSCULOSKELETAL: No joint swelling or deformity. EXTREMITIES: No cyanosis, clubbing, or pedal edema. -NEUROLOGICAL: Gross neurological examination did not reveal any focal deficits. Cranial nerves are grossly intact, strength is 5/5 in all 4 extremities. Sensation is intact. Meningeal signs are absent. She has significant tenderness in the left neck muscles SKIN: No rashes. No petechiae Results CBC & Chem 7: 04/30/20 16:31 04/30/20 16:59 Labs: Abnormal Lab Results - Last 24 Hours (Table) 04/30/20 04/30/20 04/30/20 Range/Units 16:31 16:32 16:59 WBC 11.7 H (3.8-10.6) k/uL Hct 46.4 H (34.0-46.0) % RDW 16.4 H (11.5-15.5) % Neutrophils # 9.3 H (1.3-7.7) k/uL Calcium 10.6 H (8.4-10.2) mg/dL Alkaline Phosphatase 141 H (38-126) U/L Total Protein 9.9 H (6.3-8.2) g/dL Albumin 5.5 H (3.5-5.0) g/dL Cholesterol (<200) mg/dL LDL Cholesterol, Calc (0-99) mg/dL HDL Cholesterol (40-60) mg/dL Urine Protein Trace H (Negative) Urine Blood Small H (Negative) Ur Leukocyte Esterase Small H (Negative) Urine WBC 6 H (0-5) /hpf Urine Mucus Many H (None) /hpf 04/30/20 Range/Units 16:59 WBC (3.8-10.6) k/uL Hct (34.0-46.0) % RDW (11.5-15.5) % Neutrophils # (1.3-7.7) k/uL Calcium (8.4-10.2) mg/dL Alkaline Phosphatase (38-126) U/L Total Protein (6.3-8.2) g/dL Albumin (3.5-5.0) g/dL Cholesterol 270 H (<200) mg/dL LDL Cholesterol, Calc 164 H (0-99) mg/dL HDL Cholesterol 89 H (40-60) mg/dL Urine Protein (Negative) Urine Blood (Negative) Ur Leukocyte Esterase (Negative) Urine WBC (0-5) /hpf Urine Mucus (None) /hpf Thrombosis Risk Factor Assmnt - Choose All That Apply Any of the Below Risk Factors Present?: No Other Risk Factors: No Other congenital or acquired thrombophilia - If yes, enter type in comment: No Thrombosis Risk Factor Assessment Level: Very Low Risk Assessment and Plan Assessment: Headache with nausea and vomiting and left upper extremity weakness and numbness. With significant tenderness in the left neck muscles Subjective feeling of left sided weakness Mild leukocytosis, mostly reactive, no evidence of infection Dehydration Recent delivery about one month ago Chronic asthma Plan: this is a pleasant 25 years old female who presents with headache with left arm weakness and numbness with dizziness and , nausea vomiting. Continue with symptomatic treatment. Pain management. IV hydration. Follow-up recommendation by neurologist. Continue with aspirin. Monitor labs Labs and medication were reviewed.. Continue same treatment. Continue with symptomatic treatment. Resume home medication. Monitor lytes and vitals. DVT and GI prophylaxis. Further recommendations depends on the clinical course of the patient DVT prophylaxis: Subcutaneous heparin GI Prophylaxis: Pepcid
[2020-05-01 10:17] LABS: Anisocytosis Slight; Basophils % (A) 0 %; Eosinophils # (A) 0.5 k/uL (0-0.7); Eosinophils % (A) 8 %; HCT 40.7 % (34.0-46.0); HGB 12.3 gm/dL (11.4-16.0); Lymphocytes # (A) 2.5 k/uL (1.0-4.8); Lymphocytes % (A) 39 %; MCH 27.9 pg (25.0-35.0); MCHC 30.2 g/dL (31.0-37.0); MCV 92.7 fL (80.0-100.0); Mean Platelet Volume 7.7; Monocytes # (A) 0.5 k/uL (0-1.0); Monocytes % (A) 7 %; Neutrophils # (A) 2.7 k/uL (1.3-7.7); Neutrophils % (A) 43 %; Platelet Count 264 k/uL (150-450); RBC 4.39 m/uL (3.80-5.40); RDW 16.4 % (11.5-15.5); WBC 6.3 k/uL (3.8-10.6)
[2020-05-01 10:20] VITALS: BMI 18.4
[2020-05-01 10:40] LABS: African American GFR (CKD) >90 (>60 ml/min/1.73 sqM); Anion Gap 6 mmol/L; Blood Urea Nitrogen 10 mg/dL (7-17); Calcium 9.5 mg/dL (8.4-10.2); Carbon Dioxide 25 mmol/L (22-30); Chloride 105 mmol/L (98-107); Glucose 96 mg/dL (74-99); Non-African American GFR(CKD) >90 (>60 ml/min/1.73 sqM); Potassium 4.4 mmol/L (3.5-5.1); Sodium 136 mmol/L (137-145)
[2020-05-01] MEDS: CAPSAICIN 0.025% CREAM 60 GM TUBE TOPICAL SCH ×4 (11:26→23:14)
--- NOTE | 2020-05-01 13:33 | P.CNPUL ---
History of Present Illness Consult date: 05/01/20 Reason for consult: other (History of severe asthma and previous history of pneumothorax.) Chief complaint: Headaches History of present illness: This is a 25-year-old female, known history of mild persistent asthma, primarily a patient of Dr. Kumar, patient was supposed to see me last week in the office for follow-up on her asthma, and she never showed up. Patient presented yesterday with 2 days history of headache and left arm weakness. Patient describes the headache as severe as 9/10. And felt like a pressure radiating to the left neck associated with left arm weakness. Patient had no pulmonary symptoms, no cough no wheezing no shortness of breath, compliant with her as a medications and again her asthma has been fairly stable. Patient denies any chest pain, denies any shortness of breath, no cough no wheezing. She had extensive workup so far for her headaches, and a neurological consultation is pe nding. CT of the head and CT angiogram of the head and neck came back basically normal. Chest x-ray is also normal Review of Systems CONSTITUTIONAL: Negative HEENT: No recent visual problems or hearing problems. Denied any sore throat. CARDIOVASCULAR: No orthopnea, PND, no palpitations, no syncope. PULMONARY: No active pulmonary symptoms whatsoever GASTROINTESTINAL: No diarrhea, no nausea, no vomiting, no abdominal pain. Normoactive bowel sounds. -NEUROLOGICAL: As noted in HPI. HEMATOLOGICAL: Denies any bleeding or petechiae. GENITOURINARY: Denies any burning micturition, frequency, or urgency. MUSCULOSKELETAL/RHEUMATOLOGICAL: Denies any joint pain, swelling, or any muscle pain. ENDOCRINE: Negative Past Medical History Past Medical History: Asthma Additional Past Medical History / Comment(s): Chronic asthma, lung collapse (April), preclampsia History of Any Multi-Drug Resistant Organisms: None Reported Past Surgical History: Section Additional Past Surgical History / Comment(s): [place] tooth extraction Past Anesthesia/Blood Transfusion Reactions: No Reported Reaction Additional Past Anesthesia/Blood Transfusion Reaction / Comment(s): no anesthe demetrius or blood before Past Psychological History: No Psychological Hx Reported Smoking Status: Never smoker Past Alcohol Use History: None Reported Past Drug Use History: None Reported - Past Family History Father Family Medical History: Asthma Mother Family Medical History: No Reported History Medications and Allergies Home Medications Medication Instructions Recorded Confirmed Type Albuterol Inhaler [Ventolin Hfa 2 puff INHALATION RT-QID PRN #1 12/02/1910/14 Rx Inhaler] inhaler Albuterol Nebulized [Ventolin 2.5 mg INHALATION RT-QID PRN 04/06/20 04/30/20 History Nebulized] Beclomethasone Dipropionate [Qvar 2 puff INHALATION RT-BID 04/06/20 04/30/20 History 40 mcg Redihaler] Budesonide [Pulmicort] 0.25 mg INHALATION RT-BID 04/06/20 04/30/20 History Montelukast [Singulair] 10 mg PO DAILY 04/06/20 04/30/20 History Omalizumab [Xolair] 150 mg SQ Q14D 04/06/20 04/30/20 History Famotidine [Pepcid] 20 mg PO BID #30 tablet 04/07/20 04/30/20 Rx traMADol HCL [Ultram] 50 mg PO Q4HR PRN 3 Days #18 tab 04/07/20 04/30/20 Rx Allergies Allergy/AdvReac Type Severity Reaction Status Date / Time amoxicillin [Amoxicillin] Allergy Anaphylaxis Verified 04/30/20 16:41 Physical Exam Vitals: Vital Signs Temp Pulse Pulse Resp BP BP Pulse Ox 05/01/20 12:49 98.6 F 69 16 133/93 99 05/01/20 08:33 98.9 F 77 16 122/65 98 05/01/20 06:25 98.1 F 80 15 133/78 98 05/01/20 05:06 98.0 F 84 15 136/74 97 05/01/20 02:53 98.1 F 80 16 136/88 98 05/01/20 00:38 97.5 F L 84 15 117/75 98 04/30/20 23:13 98.3 F 84 16 130/97 99 04/30/20 22:17 98.4 F 87 19 122/92 98 04/30/20 19:33 93 18 143/114 100 04/30/20 18:44 80 18 138/112 100 04/30/20 14:58 98.6 F 111 H 22 151/86 99 Intake and Output 04/30/20 05/01/20 05/01/20 22:59 06:59 14:59 Output Total 200 Balance -200 Output: Emesis 200 Other: Voiding Method Toilet Toilet # Voids 2 Weight 45.813 kg 45.813 kg Physical Exam: Revealed a 25-year-old female in no distress. Head: Atraumatic, normocephalic. Lymphatics: No cervical or supraclavicular lymphadenopathy. HEENT:[Neck is supple.] [No neck masses.] [No thyromegaly.] [No JVD.] Chest: [Clear throughout, no crackles, no rhonchi, no wheezes.] Cardiac Exam: [Normal S1 and S2, no S3 gallop, no murmur.] Abdomen: [Soft, nontender, no megaly, no rebound, no guarding, normal bowel landy nds.] Extremities: [No clubbing, no edema, no cyanosis.] Neurological Exam: [No focal neurologic deficit.] Alert and oriented 3. Skin: No rashes and no petechiae Psychiatric: Normal mood affect and normal mental status examination. Results - Laboratory Findings CBC and BMP: 05/01/20 09:22 05/01/20 09:22 PT/INR, D-dimer D-Dimer <0.17 mg/L FEU (<0.60) 04/30/20 16:45 Abnormal lab findings: Abnormal Labs 04/30/20 04/30/20 04/30/20 16:31 16:32 16:59 WBC 11.7 H Hct 46.4 H MCHC RDW 16.4 H Neutrophils # 9.3 H Sodium Calcium 10.6 H Alkaline Phosphatase 141 H Total Protein 9.9 H Albumin 5.5 H Cholesterol LDL Cholesterol, Calc HDL Cholesterol Urine Protein Trace H Urine Blood Small H Ur Leukocyte Esterase Small H Urine WBC 6 H Urine Mucus Many H 04/30/20 05/01/20 05/01/20 16:59 09:22 09:22 WBC Hct MCHC 30.2 L RDW 16.4 H Neutrophils # Sodium 136 L Calcium Alkaline Phosphatase Total Protein Albumin Cholesterol 270 H LDL Cholesterol, Calc 164 H HDL Cholesterol 89 H Urine Protein Urine Blood Ur Leukocyte Esterase Urine WBC Urine Mucus - Diagnostic Findings Chest x-ray: image reviewed (Chest x-ray is normal) Assessment and Plan Assessment: Impression: Severe headache, workup is in progress, patient is yet to be seen by urology on consultation. Mild persistent asthma presently stable and asymptomatic. History of spontaneous pneumothoraces/multiple area Recommendation: Agree with the present workup for her headaches Agree with neurological consultation. No active asthma symptoms, advised that the patient remains on the same asthma medications, Follow-up on outpatient basis for her asthma. We'll see the patient as needed Time with Patient: Greater than 30
[2020-05-01] MEDS ORDERED: MAGNESIUM SULFATE-D5W PMX 1 GM in DEXTROSE/WATER 1 100ML.BAG IVPB ONE (17:04)
[2020-05-01] MEDS ORDERED: RX INFO: IV CONTRAST WAS GIVEN 1 EACH MISC MISCELLANE PRN (17:07)
--- NOTE | 2020-05-01 17:32 | P.CNNES ---
History of Present Illness Consult date: 05/01/20 Requesting physician: Eliceo Nunez Reason for Consult: headache History of Present Illness: This is a 25-year-old female with medical history of asthma who presented emergency department on 04/30/2020 for headache. She said that the she noticed this headache the night prior to presentation to the ED. She said this is an new headache, it over the left frontal area that radiates over the temporal occipital to the left side of the neck and to the shoulder area. It's a banging type of headache, initially the pain as 6/10 then became 10 out of 10. Take as constant. She does have the photophobia associated with this, phonophobia, nausea and vomiting. She noticed that her left eye is blurry. She also felt like she was dizzy lying or standing. She also noticed that the she is having intermittent weakness associated with this. Denies any warning signs prior before the headache. She denies any ringing in the ears or hearing loss. She denies of any numbness of the face or the arm. She denies any migraine history or any headache similar to this. She denies any fever. She denies any trauma to the neck or the head. Currently feet she feels the headache is 8/10. She denies of any diplopia. Denies any associated symptoms of her lower extremities. She stated that the she delivered a 6-month-old girl and that during her and she had preeclampsia and her third gestation and [employer] and she had to have a that was emergent at 37 weeks but there is no complication with the or delivery. She continued to have some hypertension after the delivery but that resolved. She had 2 previous pregnancies and the first one was normal. The second she had the urinary abruption at 27 weeks but otherwise there is no complication. She said all her kids are born normal. She denies any tobacco use, or any illicit drug use. Patient is on any control pills. The only medication she is on is for her asthma. There is no family history of brain aneurysm or subarachnoid hemorrhage. There is no family history of migraines. Patient received Zofran and Reglan in the ED. She also received a Dilaudid 0.5 mg once in the ED and another 0.5 mg of Dilaudid. Work-up in the hospital consisted of: Social vital signs is a blood pressure of 151/86, heart rate of 111, respiratory of 22, temperature of 98.6 Fahrenheit oral and pulse ox of 99 the percent at room air. CT of the head is reported as no acute intracranial process. Personally reviewed the CT of the head and I agree with the report. CT angiography of the head and neck reported as no flow limiting stenosis bilateral carotid bifurcation. Normal [place]. Review of Systems Review of system: The 12 point system was reviewed and apparent positive and negative per HPI. Past Medical History Past Medical History: Asthma Additional Past Medical History / Comment(s): Chronic asthma, lung collapse (April), preclampsia History of Any Multi-Drug Resistant Organisms: None Reported Past Surgical History: Section Additional Past Surgical History / Comment(s): [place] tooth extraction Past Anesthesia/Blood Transfusion Reactions: No Reported Reaction Additional Past Anesthesia/Blood Transfusion Reaction / Comment(s): no anesthesia or blood before Past Psychological History: No Psychological Hx Reported Smoking Status: Never smoker Past Alcohol Use History: None Reported Past Drug Use History: None Reported - Past Family History Father Family Medical History: Asthma Mother Family Medical History: No Reported History Medications and Allergies Home Medications Medication Instructions Recorded Confirmed Type Albuterol Inhaler [Ventolin Hfa 2 puff INHALATION RT-QID PRN #1 12/02/19 04/30/20 Rx Inhaler] inhaler Albuterol Nebulized [Ventolin 2.5 mg INHALATION RT-QID PRN 04/06/20 04/30/20 History Nebulized] Beclomethasone Dipropionate [Qvar 2 puff INHALATION RT-BID 04/06/20 04/30/20 History 40 mcg Redihaler] Budesonide [Pulmicort] 0.25 mg INHALATION RT-BID 04/06/20 04/30/20 History Montelukast [Singulair] 10 mg PO DAILY 04/06/20 04/30/20 History Omalizumab [Xolair] 150 mg SQ Q14D 04/06/20 04/30/20 History Famotidine [Pepcid] 20 mg PO BID #30 tablet 04/07/20 04/30/20 Rx traMADol HCL [Ultram] 50 mg PO Q4HR PRN 3 Days #18 tab 04/07/20 04/30/20 Rx Allergies Allergy/AdvReac Type Severity Reaction Status Date / Time amoxicillin [Amoxicillin] Allergy Anaphylaxis Verified 04/30/20 16:41 Physical Examination - Vital Signs Vital Signs: Vital Signs Temp Pulse Pulse Resp BP BP Pulse Ox 05/01/20 15:00 98.0 F 73 16 133/93 98 05/01/20 12:49 98.6 F 69 16 133/93 99 05/01/20 08:33 98.9 F 77 16 122/65 98 05/01/20 06:25 98.1 F 80 15 133/78 98 05/01/20 05:06 98.0 F 84 15 136/74 97 05/01/20 02:53 98.1 F 80 16 136/88 98 05/01/20 00:38 97.5 F L 84 15 117/75 98 04/30/20 23:13 98.3 F 84 16 130/97 99 04/30/20 22:17 98.4 F 87 19 122/92 98 04/30/20 19:33 93 18 143/114 100 04/30/20 18:44 80 18 138/112 100 Intake and Output 05/01/20 05/01/20 05/01/20 06:59 14:59 22:59 Output Total 200 Balance -200 Output: Emesis 200 Other: Voiding Method Toilet Toilet Toilet # Voids 2 1 Weight 45.813 kg 45.813 kg GENERAL: The patient is lying in bed and is in moderate acute distress. CHEST: The heart rate is regular rate rhythm. No murmurs to auscultation. LUNG: Clear to auscultation bilaterally no wheezing noted throughout. Not labored breathing. ABDOMEN/GI: Bowel sounds present in all 4 quadrants. No tenderness to palpation throughout. NEUROLOGICAL: Higher mental function: The patient is awake, alert, oriented to self, place and time. Patient is following commands. No aphasia and no neglect. Cranial nerves: The pupils are round, equal (3mm) and reactive to light and accommodation. She does have photophobia. Visual acuity is 20/20 OU with correction. Visual schulte are full to confrontation throughout. Extraocular movement is intact no nystagmus is noted. Facial sensation is normal to touch throughout. The facial strength is normal throughout. Hearing is normal b ilaterally to hand rub. Tongue is midline and moved [id number] without any difficulty. No dysarthria is noted. Shoulder shrug is normal bilaterally. Motor: Gait is normal with normal arm swings. The strength is 5 over 5 throughout. Normal tone and bulk. Cerebellum: Normal finger to nose bilaterally. Sensation: Sensation is normal to touch throughout. Reflexes (right/left): 2+ throughout. Plantars are downgoing bilaterally. Results Calcium of 10.6. AST of 31, ALT of 12. Lipid profile: Triglyceride of 87, cholesterol 270, LDL of 164 and HDL of 89. - Laboratory Findings CBC and BMP: 05/01/20 09:22 05/01/20 09:22 Abnormal Lab Findings: Abnormal Labs 04/30/20 04/30/20 04/30/20 16:31 16:32 16:59 WBC 11.7 H Hct 46.4 H MCHC RDW 16.4 H Neutrophils # 9.3 H Sodium Calcium 10.6 H Alkaline Phosphatase 141 H Total Protein 9.9 H Albumin 5.5 H Cholesterol LDL Cholesterol, Calc HDL Cholesterol Urine Protein Trace H Urine Blood Small H Ur Leukocyte Esterase Small H Urine WBC 6 H Urine Mucus Many H 04/30/20 05/01/20 05/01/20 16:59 09:22 09:22 WBC Hct MCHC 30.2 L RDW 16.4 H Neutrophils # Sodium 136 L Calcium Alkaline Phosphatase Total Protein Albumin Cholesterol 270 H LDL Cholesterol, Calc 164 H HDL Cholesterol 89 H Urine Protein Urine Blood Ur Leukocyte Esterase Urine WBC Urine Mucus Assessment and Plan Assessment: This is a 25-year-old woman who presented with new onset headache over the left frontal area rating down to the left temporal occipital and to the shoulder area. It is associated with photophobia, phobia, nausea and vomiting. She also had blurry vision over the left eye. She felt like she is having weakness of the left upper extremity intermittently with this. Cephalgia: Need to rule out sinus thrombosis versus intracranial mass which is unlikely. Another possibility is that this could be migrainous from the patient's clinical presentation but seems atypical (no hx of migraine) Minimal leukocytosis possibly reactive Dyslipidemia Chronic asthma History of gestational diabetes Plan: I ordered MRI of the brain and venous with and without contrast to rule out venous thrombosis and intracranial mass. I I ordered one time Solu-Medrol 500 mg as well as magnesium sulfate of 1 g Recommend starting atorvastatin 40 mg for dyslipidemia once her nausea and vomiting is resolved but will defer to the primary team. She is on famotidine for GI prophylaxis. Plan was discussed with the patient. Thank you for the consultation. Angel Diaz MD Neuro-hospitalist Time with Patient: Greater than 30
[2020-05-01] MEDS: ONDANSETRON 4 MG/2 ML VIAL IVP PRN (18:41)
[2020-05-01] MEDS: FAMOTIDINE 20 MG TAB PO SCH (20:11)
[2020-05-02] MEDS: SODIUM CHLORIDE 0.9% 1,000 ML IV SCH ×2 (04:00→15:47)
[2020-05-02] MEDS: MORPHINE SULFATE 4 MG/ML SYRINGE IVP PRN ×2 (07:55→13:19)
[2020-05-02] MEDS: HEPARIN SODIUM,PORCINE 5,000 UNIT/ML 1 ML VIAL SQ SCH ×2 (08:37→22:17)
[2020-05-02] MEDS: FAMOTIDINE 20 MG TAB PO SCH ×2 (08:37→22:17)
[2020-05-02] MEDS: ASPIRIN 325 MG TAB PO SCH (08:37)
[2020-05-02] MEDS: CAPSAICIN 0.025% CREAM 60 GM TUBE TOPICAL SCH ×4 (08:38→22:17)
--- NOTE | 2020-05-02 10:20 | MR ---
EXAMINATION TYPE: MR venography head wo/w con DATE OF EXAM: 05/02/2020 COMPARISON: None HISTORY: Headache with left arm weak. R/O venous thrombus CONTRAST: Standard multiplanar, multisequence MRI departmental protocol utilizing 4.5 mL intravenous Gadavist g adolinium contrast. Images were obtained on 3.0 [place] magnet. FINDINGS: There is normal flow through the sagittal sinus. Straight sinus is normal. Sigmoid sinuses are normal. Venous drainage through the MRV appears normal. No filling defects are identified. Three-D rotating images are reviewed on the computer performed on a separate computer by the elieen pacheco. No suspicious filling defects are evident. IMPRESSION: Normal MRV. No suspicious intracerebral venous thrombosis identified.
--- NOTE | 2020-05-02 10:41 | MR ---
EXAMINATION TYPE: MR brain wo/w con DATE OF EXAM: 05/02/2020 COMPARISON: CT brain 04/30/2020 HISTORY: New onset headache with intermittent left arm weak CONTRAST: Performed utilizing 4.5 mL intravenous Gadavist gadolinium contrast. TECHNIQUE: Multiplanar, multiecho imaging on a 3.0 [place] magnet is performed through the brain. Stud y is performed within 24 hours of arrival to the hospital. The craniovertebral junction is normal. The pituitary is normal. A Virchow-Dereck's space is likely present within the medial inferior left basal ganglion. A 0.7 cm pineal cyst may be present. Diffusion-weighted imaging is performed. No abnormal hyperintensity is present to suggest an acute i ntracranial infarct or acute ischemic change. No suspicious signal abnormality within the brain is evident. Postcontrast imaging appears unremarkab le. No abnormal enhancement is evident. Ventricles and sulci are appropriate for the patient age. IMPRESSIONS: 1. Essentially normal pre and postcontrast MRI brain.
[2020-05-02] MEDS ORDERED: CYCLOBENZAPRINE 5 MG TAB PO PRN (13:37)
[2020-05-02] MEDS: ONDANSETRON 4 MG/2 ML VIAL IVP PRN (14:37)
[2020-05-02] MEDS: LIDOCAINE 5% PATCH TOPICAL SCH (15:13)
[2020-05-02] MEDS ORDERED: SUMAtriptan succinate 25 MG TAB PO STA (16:47)
--- NOTE | 2020-05-02 19:23 | P.PN ---
Subjective This is a pleasant 25 years old -[place] female with past medical history of chronic asthma and preeclampsia, she has a of 5 week of age. She is a patient of Dr. Montero. Patient presents because of 2 days of headache and left arm weakness, patient started having left side head and neck pain about 9/10 in severity but like a pressure, pain was radiating to her left neck and associated with left arm weakness as per patient, she waited overnight however her symptoms does not improve by yesterday afternoon so she decided to come to the hospital, now she says that her headache is much improved especially in the left frontal area however she still complaining from pain in the left neck area, her left arm is only mildly weak but improved since yesterday. However an exam no weakness is appreciated but he she has tenderness in the left neck Also on admission she was complaining from nausea vomiting Becky blurred vision with some dizziness, all the symptoms are also improvement but not completely resolved this morning as per patient. Also she complains from some tingling in her left hand She denies chest pain or coughing or dyspnea, no change in urine or bowel habits. She denies depression or suicidal ideation Vitas looks stable. Blood pressure on admission was 151/86, currently is 133/78. No fever. Labs showing mild leukocytosis of 11.7 K, d-dimer is negative less than 0.17, BMP is unremarkable except for slightly elevated calcium at 10.6 (reference 8.4-10.2). AST/ALT are not elevated. Urinalysis is not suspicious of infection. chest x-ray: No acute process. CT of the brain: No acute process by radiologist. CTA of the head and neck she went normal [place], no stenosis of bilateral carotid arteries In the emergency room she received aspirin 325 mg, Norvasc 2.5 mg, Dilaudid, Reglan and Zofran. Also she was started on normal saline at 100 mL per hour neurologist has been consulted 05/02/2020 Patient today still feeling generally weak and cystoscopy complaining of from headache and neck pain, no more weakness in the left upper extremity, no dizziness MRI study showing no suspicious intracranial venous thrombosis and normal the brain. She still have some symptoms, I discussed the case with neurologist Dr. Diaz and since she still has symptoms he prefer to keep monitoring for now. Lidocaine 5% and Flexeril has been added with recommendation of neurologist. We will keep monitoring Objective - Vital Signs Vital signs: Vital Signs Temp 98.9 F 05/02/20 09:00 Pulse 75 05/02/20 09:00 Resp 18 05/02/20 09:00 BP 109/64 05/02/20 09:00 Pulse Ox 98 05/02/20 09:00 Intake & Output 05/01/20 05/02/20 05/02/20 18:59 06:59 18:59 Intake Total 2950 Balance 2950 Weight 45.813 kg Intake: Intake, IV Titration 2100 Amount Sodium Chloride 0.9% 1, 1600 000 ml @ 100 mls/hr IV . Q10H ASHLI Rx#:[id number] methylPREDNISolone SOD 500 SUCC 500 mg In Sodium Chloride 0.9% 100 ml @ 100 mls/hr IVPB ONCE STA Rx#:[id number] Oral 850 Other: Voiding Method Toilet Toilet # Voids 1 2 - Exam GENERAL: The patient is alert and oriented x3, not in any acute distress. Well developed, well nourished. HEENT: Pupils are round and equally reacting to light. EOMI. No scleral icterus. No conjunctival pallor. Normocephalic, atraumatic. No pharyngeal erythema. No thyromegaly. CARDIOVASCULAR: S1 and S2 present. No murmurs, rubs, or gallops. PULMONARY: Chest is clear to auscultation, no wheezing or crackles. ABDOMEN: Soft, nontender, nondistended, normoactive bowel sounds. No palpable organomegaly. -MUSCULOSKELETAL: No joint swelling or deformity. Muscular tenderness on the posterior left neck EXTREMITIES: No cyanosis, clubbing, or pedal edema. NEUROLOGICAL: Gross neurological examination did not reveal any focal deficits. SKIN: No rashes. no petechiae. - Labs CBC & Chem 7: 05/01/20 09:22 05/01/20 09:22 Assessment and Plan Assessment: -Headache with nausea and vomiting and left upper extremity weakness and numbness. With significant tenderness in the left neck muscles. Muscles and symptoms improved except for generalized weakness and pain and tenderness of the neck muscles, we will keep monitoring for now -Subjective feeling of left sided weakness , improved and MRI studies negative -Mild leukocytosis, mostly reactive, no evidence of infection. Improved -Dehydration, improved Recent delivery about one month ago Chronic asthma Plan: this is a pleasant 25 years old female who presents with headache and other symptoms, most of the symptoms improved. MRI study were negative. We will keep monitoring with Flexeril and pain management, patient is been evaluated by neurologist Labs and medication were reviewed.. Continue same treatment. Continue with symptomatic treatment. Resume home medication. Monitor lytes and vitals. DVT and GI prophylaxis. Further recommendations depends on the clinical course of the patient DVT prophylaxis: Subcutaneous heparin GI Prophylaxis: Pepcid
--- NOTE | 2020-05-02 20:01 | P.PN ---
Subjective Progress Note Date: 05/02/20 Principal diagnosis: She was seen at bedside and she stated that the after receiving the sella majority yesterday she felt better. But this only lasted for a few hours. Currently she is distal having this is severe pain on the left frontal that goes all the way to the temporal and neck shoulder area. She states the headache is about an 8-9 out of 10. Objective - Vital Signs Vital signs: Vital Signs Temp 98.5 F 05/02/20 15:00 Pulse 70 05/02/20 15:00 Resp 18 05/02/20 15:00 BP 127/85 05/02/20 15:00 Pulse Ox 95 05/02/20 15:00 Intake & Output 05/02/20 05/02/20 05/03/20 06:59 18:59 06:59 Intake Total 2950 Balance 2950 Intake: Intake, IV Titration 2100 Amount Sodium Chloride 0.9% 1, 1600 000 ml @ 100 mls/hr IV . Q10H [facility] Rx#:[id number] methylPREDNISolone SOD 500 SUCC 500 mg In Sodium Chloride 0.9% 100 ml @ 100 mls/hr IVPB ONCE STA Rx#:[id number] Oral 850 Other: Voiding Method Toilet # Voids 2 2 - Exam GENERAL: The patient is lying in bed and is in moderate acute distress. CHEST: The heart rate is regular rate rhythm. No murmurs to auscultation. LUNG: Clear to auscultation bilaterally no wheezing noted throughout. Not labored breathing. ABDOMEN/GI: Bowel sounds present in all 4 quadrants. No tenderness to palpation throughout. NEUROLOGICAL: Higher mental function: The patient is awake, alert, oriented to self, place and time. Patient is following commands. No aphasia and no neglect. Cranial nerves: The pupils are round, equal (3mm) and reactive to light and accommodation. She does have photophobia. Visual acuity is 20/20 OU with correction. Visual schulte are full to confrontation throughout. Extraocular movement is intact no nystagmus is noted. Facial sensation is normal to touch throughout. The facial strength is normal throughout. Hearing is normal bilaterally to hand rub. Tongue is midline and moved [id number] without any difficulty. No dysarthria is noted. Shoulder shrug is normal bilaterally. Motor: Gait is normal with normal arm swings. The strength is 5 over 5 throughout. Normal tone and bulk. Cerebellum: Normal finger to nose bilaterally. Sensation: Sensation is normal to touch throughout. Reflexes (right/left): 2+ throughout. Plantars are downgoing bilaterally. - Labs CBC & Chem 7: 05/01/20 09:22 05/01/20 09:22 Assessment and Plan Assessment: This is a 25-year-old woman who presented with new onset headache over the left frontal area rating down to the left temporal occipital and to the shoulder area. It is associated with photophobia, phobia, nausea and vomiting. She also had blurry vision over the left eye. She felt like she is having weakness of the left upper extremity intermittently with this. Cephalgia: Has component of myofacial especially with tenderness to touch on left neck and shoulder area. Another possibility is that this could be migrainous from the patient's clinical presentation (no hx of migraine) Minimal leukocytosis possibly reactive Dyslipidemia Chronic asthma History of gestational diabetes Plan: MRI of the brain w/ and w/o: Normal. MRV: Normal. No suspicion intracerebral venous thrombosis identified. I will give the patient another dose of Solu-Medrol 500 mg. Also also give her another dose of the magnesium sulfate 1 g. N after I also ordered one time Imitrex 25mg to see that helps. Regarding the myofascial pain because of tenderness on the left neck and shoulder area I spoke with the primary and the I recommend that muscle relaxant. Primary ordered Flexeril 5 mg by mouth 3 times a day. I'll change it to a scheduled dose to make sure the patient gets the medication to see if there is any benefit. Recommend starting atorvastatin 40 mg for dyslipidemia once her nausea and vomiting is resolved but will defer to the primary team. She is on famotidine for GI prophylaxis. Plan was discussed with the patient. If the patient the headache subsided there is no further neurological workup needed that. She needs to follow-up with a neurologist as an outpatient in 2-[address] Faustin will be on service for Neurology on 05/03/2020 as well as 05/04/2020. Angel Diaz MD Neuro-hospitalist Time with Patient: Less than 30
[2020-05-03] MEDS: CYCLOBENZAPRINE 10 MG TAB PO PRN ×2 (03:03→11:35)
[2020-05-03] MEDS: SODIUM CHLORIDE 0.9% 1,000 ML IV SCH ×3 (05:07→20:56)
[2020-05-03] MEDS: ASPIRIN 325 MG TAB PO SCH (08:35)
[2020-05-03] MEDS: LIDOCAINE 5% PATCH TOPICAL SCH (08:35)
[2020-05-03] MEDS: HEPARIN SODIUM,PORCINE 5,000 UNIT/ML 1 ML VIAL SQ SCH ×2 (08:35→20:56)
[2020-05-03] MEDS: FAMOTIDINE 20 MG TAB PO SCH ×2 (08:35→20:55)
[2020-05-03] MEDS: CAPSAICIN 0.025% CREAM 60 GM TUBE TOPICAL SCH ×4 (08:36→20:56)
[2020-05-03] MEDS ORDERED: SUMAtriptan succinate 25 MG TAB PO STA (10:32)
[2020-05-03] MEDS ORDERED: ATORVASTATIN 20 MG TAB PO STA (11:06)
[2020-05-03] MEDS ORDERED: IPRATROPIUM-ALBUTEROL 3 ML NEB INHALATION PRN (11:15)
[2020-05-03] MEDS: ATORVASTATIN 40 MG TAB PO SCH (13:24)
[2020-05-04] MEDS: SODIUM CHLORIDE 0.9% 1,000 ML IV SCH ×2 (08:18→15:15)
[2020-05-04] MEDS: CAPSAICIN 0.025% CREAM 60 GM TUBE TOPICAL SCH ×4 (08:19→21:12)
[2020-05-04] MEDS: FAMOTIDINE 20 MG TAB PO SCH ×2 (08:28→21:12)
[2020-05-04] MEDS: HEPARIN SODIUM,PORCINE 5,000 UNIT/ML 1 ML VIAL SQ SCH ×2 (08:28→21:10)
[2020-05-04] MEDS: LIDOCAINE 5% PATCH TOPICAL SCH (08:28)
[2020-05-04] MEDS: ATORVASTATIN 40 MG TAB PO SCH (08:28)
[2020-05-04] MEDS ORDERED: ASPIRIN-ACET-CAFF 250-250-65MG 1 EACH TAB PO PRN (13:50)
--- NOTE | 2020-05-04 14:24 | P.PN ---
Subjective Progress Note Date: 05/04/20 The patient is seen in neurologic follow-up on May 04, 2020 via teleneurology. She is seated in the bedside chair. She reports continuing to have head pain at a 6/10. She denies left arm weakness and numbness. The patient reports the pain is a pressure sensation on the left side of her head with radiation to her left neck. She reports having nausea yesterday. She also vomited yesterday. Patient reports associated photophobia. There is no phonophobia. The patient denies a history of headaches. The patient reports not receiving significant benefit from any of the medications she has been given for her headache. She did note resolution of the pain for a few hours, after the first dose of combination Flexeril and aspirin. Patient is anxious for discharge. Objective - Vital Signs Vital signs: Vital Signs Temp 98.4 F 05/04/20 08:27 Pulse 69 05/04/20 08:27 Resp 18 05/04/20 08:27 BP 110/60 05/04/20 08:27 Pulse Ox 99 05/04/20 08:27 Intake & Output 05/03/20 05/04/20 05/04/20 18:59 06:59 18:59 Intake Total 1190 900 Balance 1190 900 Intake: Oral 1190 900 Other: Voiding Method Toilet # Voids 3 1 2 - Exam Gen.: Patient is seated in the bedside chair. She is well-nourished, well- developed and in no acute distress. HEENT: Head is atraumatic, normocephalic. Fundus not visualized. There is no scleral icterus. Mucous membranes are moist. Neurological examination Mental status: Patient is awake, alert and oriented 3. Her speech is clear. Cranial nerves: 2-12 grossly intact Motor: Strength is 5/5 throughout - Labs CBC & Chem 7: 05/01/20 09:22 05/01/20 09:22 Assessment and Plan Assessment: 1. Atypical migraine with component of musculoskeletal pain as well 2. Hyperlipidemia Plan: 1. Discussed pain medications with patient. Will give a Excedrin Migraine. Advised patient that she can get this medication [id number] 2. Discussed with patient's RN, order inputted and RN will give medication as soon as possible 3. Patient is neurologically stable for discharge 4. She was advised to follow-up with her family doctor regarding her elevated cholesterol as well as headache Time with Patient: Less than 30 (spent 25 minutes with patient via teleneurology)
[2020-05-04 16:25] LABS: Anisocytosis Slight; Basophils # (A) 0.1 k/uL (0-0.2); Basophils % (A) 1 %; Eosinophils # (A) 0.1 k/uL (0-0.7); Eosinophils % (A) 1 %; HCT 42.2 % (34.0-46.0); HGB 13.6 gm/dL (11.4-16.0); Lymphocytes # (A) 3.6 k/uL (1.0-4.8); Lymphocytes % (A) 48 %; MCH 29.3 pg (25.0-35.0); MCHC 32.2 g/dL (31.0-37.0); MCV 91.1 fL (80.0-100.0); Mean Platelet Volume 7.6; Monocytes # (A) 0.4 k/uL (0-1.0); Monocytes % (A) 6 %; Neutrophils # (A) 3.2 k/uL (1.3-7.7); Neutrophils % (A) 43 %; Platelet Count 220 k/uL (150-450); RBC 4.63 m/uL (3.80-5.40); RDW 16.1 % (11.5-15.5); WBC 7.6 k/uL (3.8-10.6)
[2020-05-04 16:26] LABS: African American GFR (CKD) >90 (>60 ml/min/1.73 sqM); Anion Gap 4 mmol/L; Blood Urea Nitrogen 17 mg/dL (7-17); Calcium 9.4 mg/dL (8.4-10.2); Carbon Dioxide 31 mmol/L (22-30); Chloride 101 mmol/L (98-107); Glucose 95 mg/dL (74-99); Non-African American GFR(CKD) >90 (>60 ml/min/1.73 sqM); Potassium 4.7 mmol/L (3.5-5.1); Sodium 136 mmol/L (137-145)
[2020-05-04] MEDS: ONDANSETRON 4 MG/2 ML VIAL IVP PRN (16:55)
[2020-05-04] MEDS: ACETAMINOPHEN TAB 325 MG TAB PO PRN (22:30)
[2020-05-05 04:55] VITALS: BP 130/86; PULSE 76; RESP 16; TEMP 97.5
[2020-05-05] MEDS: SODIUM CHLORIDE 0.9% 1,000 ML IV SCH (06:50)
[2020-05-05] MEDS ORDERED: lisinopriL 10 MG TAB PO SCH (09:00)
[2020-05-05] MEDS: HEPARIN SODIUM,PORCINE 5,000 UNIT/ML 1 ML VIAL SQ SCH (09:08)
[2020-05-05] MEDS: CAPSAICIN 0.025% CREAM 60 GM TUBE TOPICAL SCH ×2 (09:09→12:18)
[2020-05-05] MEDS: ATORVASTATIN 40 MG TAB PO SCH (09:09)
[2020-05-05] MEDS: FAMOTIDINE 20 MG TAB PO SCH (09:09)
[2020-05-05] MEDS: LIDOCAINE 5% PATCH TOPICAL SCH (09:09)
[2020-05-05] MEDS: ACETAMINOPHEN TAB 325 MG TAB PO PRN (09:11)
--- NOTE | 2020-05-05 10:08 | P.CRDCN ---
History of Present Illness History of present illness: HISTORY OF PRESENTING ILLNESS This is a pleasant 25-year-old -[place] female past medical history significant for preeclampsia, spontaneous pneumothorax and asthma. She denies prior history of coronary artery disease and does not follow with a broadcast checker for any reason. We have been asked to see in consultation for hypertension. She initially presented to the hospital last week Tuesday with symptoms of headache. She has been evaluated by neurology. For the most part throughout her hospitalization her blood pressure has been controlled however in the last 24 hours she has had some readings greater than 140 systolic. The patient states with her last she was diagnosed with preeclampsia and had delivered her baby at 37 weeks and was on Procardia thereafter. The Procardia was stopped about one month ago. She denies symptoms of chest pain, dizziness, shortness of breath or palpitations. DIAGNOSTICS EKG reveals it is mechanism with early repolarization. Chest xray negative for an acute cardiopulmonary process. Laboratory reviewed, CBC unremarkable, d-dimer less than 0.17, sodium 136, potassium 4.7, creatinine 0.73, TSH 2.55, LDL 164, HDL 89 total cholesterol 270. She takes no daily cardiac medications. REVIEW OF SYSTEMS At the time of my exam: CONSTITUTIONAL: Denies fever or chills. CARDIOVASCULAR: Denies chest pain, shortness of breath, orthopnea, PND or palpitations. RESPIRATORY: Denies cough. GASTROINTESTINAL: Denies abdominal pain, diarrhea, constipation, nausea or vomiting. MUSCULOSKELETAL: Denies myalgias. NEUROLOGIC: Denies numbness, tingling or weakness. ENDOCRINE: Denies fatigue, weight change, polydipsia or polyurina. GENITOURINARY: Denies burning, hematuria or urgency with micturation. HEMATOLOGIC: Denies history of anemia or bleeding. PHYSICAL EXAMINATION Blood pressure 130/86 heart rate 76 afebrile and maintaining oxygen saturation on room air. CONSTITUTIONAL: No apparent distress. HEENT: Head is normocephalic. Pupils are equal, round. Sclerae anicteric. Mucous membranes of the mouth are moist. No JVD. No carotid bruit. CHEST EXAMINATION: Lungs are clear to auscultation. No chest wall tenderness is noted on palpation or with deep breathing. HEART EXAMINATION: Regular rate and rhythm. S1, S2 heard. No murmurs, gallops or rub. ABDOMEN: Soft, nontender. Positive bowel sounds. EXTREMITIES: 2+ peripheral pulses, no lower extremity edema and no calf tenderness. NEUROLOGIC EXAMINATION: Patient is awake, alert and oriented x3. ASSESSMENT Migraine headache Hypertension Asthma PLAN There have been 2 recordings of elevated blood pressure however the patient has been having an uncontrolled migraine headache. Unclear if the blood pressure is elevated secondary to pain. Advised the patient to follow a low sodium diet and monitor her blood pressure at home in the morning and in the evening for the next one week. She will bring these readings with her to the office when she sees Dr. Ochoa in further recommendation will be made at that time regarding antihypertensive regimen. If she requires medication we will likely use a small dose of calcium channel brock such as amlodipine 2.5 mg daily. Secondary causes of hypertension are in the process of being worked up. Stable for discharge from a cardiac perspective. Thank you kindly for this consultation. Nurse Practitioner note has been reviewed, I agree with a documented findings and plan of care. Patient was seen and examined. Past Medical History Past Medical History: Asthma Additional Past Medical History / Comment(s): Chronic asthma, lung collapse (April), preclampsia History of Any Multi-Drug Resistant Organisms: None Reported Past Surgical History: Section Additional Past Surgical History / Comment(s): [place] tooth extraction Past Anesthesia/Blood Transfusion Reactions: No Reported Reaction Additional Past Anesthesia/Blood Transfusion Reaction / Comment(s): no anesthesia or blood before Past Psychological History: No Psychological Hx Reported Smoking Status: Never smoker Past Alcohol Use History: None Reported Past Drug Use History: None Reported - Past Family History Father Family Medical History: Asthma Mother Family Medical History: No Reported History Medications and Allergies Home Medications Medication Instructions Recorded Confirmed Type Albuterol Inhaler [Ventolin Hfa 2 puff INHALATION RT-QID PRN #1 12/02/19 04/30/20 Rx Inhaler] inhaler Albuterol Nebulized [Ventolin 2.5 mg INHALATION RT-QID PRN 04/06/20 04/30/20 History Nebulized] Beclomethasone Dipropionate [Qvar 2 puff INHALATION RT-BID 04/06/20 04/30/20 History 40 mcg Redihaler] Budesonide [Pulmicort] 0.25 mg INHALATION RT-BID 04/06/20 04/30/20 History Montelukast [Singulair] 10 mg PO DAILY 04/06/20 04/30/20 History Omalizumab [Xolair] 150 mg SQ Q14D 04/06/20 04/30/20 History Famotidine [Pepcid] 20 mg PO BID #30 tablet 04/07/20 04/30/20 Rx traMADol HCL [Ultram] 50 mg PO Q4HR PRN 3 Days #18 tab 04/07/20 04/30/20 Rx Allergies Allergy/AdvReac Type Severity Reaction Status Date / Time amoxicillin [Amoxicillin] Allergy Anaphylaxis Verified 04/30/20 16:41 Physical Exam Vitals: Vital Signs Temp Pulse Pulse Pulse Pulse Resp BP 05/05/20 03:45 97.5 F L 76 16 05/04/20 23:26 66 15 05/04/20 20:00 76 16 166/91 05/04/20 19:35 98.2 F 76 17 152/104 05/04/20 14:40 91 91 99 88 16 05/04/20 14:36 91 99 88 124/89 05/04/20 14:28 98.2 F 91 16 BP BP Pulse Ox 05/05/20 03:45 130/86 97 05/04/20 23:26 144/90 100 05/04/20 20:00 100 05/04/20 19:35 100 05/04/20 14:40 05/04/20 14:36 125/85 121/78 05/04/20 14:28 124/67 99 Intake and Output 05/04/20 05/05/20 05/05/20 22:59 06:59 14:59 Intake Total 480 Balance 480 Intake: Oral 480 Other: Voiding Method Toilet Toilet # Voids 2 1 Results 05/04/20 15:58 05/04/20 15:58 CBC 05/04/20 Range/Units 15:58 WBC 7.6 (3.8-10.6) k/uL RBC 4.63 (3.80-5.40) m/uL Hgb 13.6 (11.4-16.0) gm/dL Hct 42.2 (34.0-46.0) % Plt Count 220 (150-450) k/uL Comprehensive Metabolic Panel 05/04/20 Range/Units 15:58 Sodium 136 L (137-145) mmol/L Potassium 4.7 (3.5-5.1) mmol/L Chloride 101 (98-107) mmol/L Carbon Dioxide 31 H (22-30) mmol/L BUN 17 (7-17) mg/dL Creatinine 0.73 (0.52-1.04) mg/dL Glucose 95 (74-99) mg/dL Calcium 9.4 (8.4-10.2) mg/dL Current Medications Generic Name Dose Route Start Last Admin Trade Name Freq PRN Reason Stop Dose Admin Acetaminophen 650 mg 04/30/20 21:48 05/05/20 09:11 Acetaminophen Tab 325 Mg Tab PO 650 mg Q6HR PRN Administration Pain Acetaminophen/Aspirin/Caffeine 2 each 05/04/20 13:50 05/04/20 14:25 [id number] 1 Each Tab PO 2 each Q6HR PRN Administration Headache Albuterol/Ipratropium 3 ml 05/03/20 11:15 05/03/20 11:20 Ipratropium-Albuterol 3 Ml Neb INHALATION 3 ml RT-Q4H PRN Administration Wheezing Atorvastatin Calcium 40 mg 05/03/20 11:15 05/05/20 09:09 Atorvastatin 40 Mg Tab PO Not Given DAILY [facility] Capsaicin 1 applic 05/01/20 10:00 05/05/20 09:09 Capsaicin 0.025% Cream 60 Gm Tube TOPICAL Not Given QID [facility] Cyclobenzaprine HCl 5 mg 05/03/20 02:32 05/03/20 11:35 Cyclobenzaprine 10 Mg Tab PO 5 mg TID PRN Administration Muscle Spasm Famotidine 20 mg 05/01/20 21:00 05/05/20 09:09 Famotidine 20 Mg Tab PO Not Given BID [facility] Heparin Sodium (Porcine) 5,000 unit 05/01/20 09:00 05/05/20 09:08 Heparin Sodium,Porcine 5,000 Unit/Ml 1 Ml Vial SQ Not Given Q12HR [facility] Sodium Chloride 1,000 mls @ 100 mls/hr 04/30/20 22:00 05/05/20 06:50 Saline 0.9% IV 100 mls/hr .Q10H [facility] Administration Lidocaine 1 patch 05/02/20 13:45 05/05/20 09:09 Lidocaine 5% Patch TOPICAL Not Given DAILY [facility] Morphine Sulfate 4 mg 04/30/20 21:50 05/02/20 13:19 Morphine Sulfate 4 Mg/Ml Syringe IVP 4 mg Q4HR PRN Administration Pain Ondansetron HCl 4 mg 05/01/20 18:31 05/04/20 16:55 Ondansetron 4 Mg/2 Ml Vial IVP 4 mg Q6HR PRN Administration Nausea And Vomiting Intake and Output 05/04/20 05/05/20 05/05/20 22:59 06:59 14:59 Intake Total 480 Balance 480 Intake: Oral 480 Other: Voiding Method Toilet Toilet # Voids 2 1 05/04/20 15:58 05/04/20 15:58
--- NOTE | 2020-05-05 14:14 | P.PN ---
Subjective Progress Note Date: 05/03/20 Principal diagnosis: Headaches Mrs. Vasquez is a 25-year-old female with a past medical history of asthma, preeclampsia, has a 6 month old baby at home, patient of Dr. Shlomo Alvarez coming in with a chief complaint of 2 days of headache. Patient was also having left arm weakness along with pain that is on the left side of the head and neck which was 9 out of 10 in severity. So the patient had a CT of the brain showing no acute intracranial process and admitted to the hospital for further evaluation. Neurology initiated workup. Patient had CT Tw[place] of the head and neck that was showing no significant stenosis and normal [place]. Then eventually patient had an MRV that was normal, there was no suspicious intracranial venous thrombosis. Then patient had MRI of the brain with and without contrast that is essentially within normal limits On 05/03/2020 - patient is lying in bed appears to be no acute distress. Patient still complains of pain on the left side of the face, mostly behind the eye and also complaining of left-sided neck pain. She states the tingling in the left hand has in improved, she states that at this on and off feeling. Patient denies having any weakness of her extremities. She denies having any chest pain or palpitations. No cough or difficulty in breathing. No abdominal pain nausea vomiting or diarrhea. No dysuria or hematuria. On reviewing the vitals, afebrile for the past 24 hours, blood pressure between 120-140/80-90. No new labs from this morning. Active Medications Acetaminophen (Acetaminophen Tab 325 Mg Tab) 650 mg PO Q6HR PRN PRN Reason: Pain Last Admin: 05/04/20 22:30 Dose: 650 mg Documented by: Acetaminophen/Aspirin/Caffeine ([id number] [id number] 1 Each Tab) 2 each PO Q6HR PRN PRN Reason: Headache Last Admin: 05/04/20 14:25 Dose: 2 each Documented by: Albuterol/Ipratropium (Ipratropium-Albuterol 3 Ml Neb) 3 ml INHALATION RT-Q4H PRN PRN Reason: Wheezing Last Admin: 05/03/20 11:20 Dose: 3 ml Documented by: Atorvastatin Calcium (Atorvastatin 40 Mg Tab) 40 mg PO DAILY [facility] Last Admin: 05/04/20 08:28 Dose: 40 mg Documented by: Capsaicin (Capsaicin 0.025% Cream 60 Gm Tube) 1 applic TOPICAL QID [facility] Last Admin: 05/04/20 21:12 Dose: Not Given Documented by: Cyclobenzaprine HCl (Cyclobenzaprine 10 Mg Tab) 5 mg PO TID PRN PRN Reason: Muscle Spasm Last Admin: 05/03/20 11:35 Dose: 5 mg Documented by: Enalaprilat (Enalaprilat 1.25 Mg/Ml 1 Ml Vial) 1.25 mg IVP Q4HR PRN PRN Reason: Blood Pressure - High Famotidine (Famotidine 20 Mg Tab) 20 mg PO BID [facility] Last Admin: 05/04/20 21:12 Dose: Not Given Documented by: Heparin Sodium (Porcine) (Heparin Sodium,Porcine 5,000 Unit/Ml 1 Ml Vial) 5,000 unit SQ Q12HR [facility] Last Admin: 05/04/20 21:10 Dose: 5,000 unit Documented by: Sodium Chloride (Saline 0.9%) 1,000 mls @ 100 mls/hr IV .Q10H [facility] Last Admin: 05/04/20 15:15 Dose: Not Given Documented by: Lidocaine (Lidocaine 5% Patch) 1 patch TOPICAL DAILY [facility] Last Admin: 05/04/20 08:28 Dose: Not Given Documented by: Morphine Sulfate (Morphine Sulfate 4 Mg/Ml Syringe) 4 mg IVP Q4HR PRN PRN Reason: Pain Last Admin: 05/02/20 13:19 Dose: 4 mg Documented by: Ondansetron HCl (Ondansetron 4 Mg/2 Ml Vial) 4 mg IVP Q6HR PRN PRN Reason: Nausea And Vomiting Last Admin: 05/04/20 16:55 Dose: 4 mg Documented by: Objective - Vital Signs Vital signs: Vital Signs Temp 98.1 F 05/03/20 08:04 Pulse 64 05/03/20 11:29 Resp 16 05/03/20 03:00 BP 116/72 05/03/20 08:04 Pulse Ox 98 05/03/20 08:04 Intake & Output 05/02/20 05/03/20 05/03/20 18:59 06:59 18:59 Other: # Voids 2 1 - Exam GENERAL: The patient is alert and oriented x3, not in any acute distress. Well developed, well nourished. HEENT: Pupils are round and equally reacting to light. EOMI. No scleral icterus. No conjunctival pallor. Normocephalic, atraumatic. No pharyngeal erythema. No thyromegaly. CARDIOVASCULAR: S1 and S2 present. No murmurs, rubs, or gallops. PULMONARY: Chest is clear to auscultation, no wheezing or crackles. ABDOMEN: Soft, nontender, nondistended, normoactive bowel sounds. No palpable organomegaly. -MUSCULOSKELETAL: No joint swelling or deformity. Muscular tenderness on the posterior left neck EXTREMITIES: No cyanosis, clubbing, or pedal edema. NEUROLOGICAL: Gross neurological examination did not reveal any focal deficits. SKIN: No rashes. no petechiae. - Labs CBC & Chem 7: 05/04/20 15:58 05/04/20 15:58 Assessment and Plan Assessment: Assessment: -Headache with nausea and vomiting and left upper extremity weakness and numbness. With significant tenderness in the left neck muscles. Muscles and symptoms improved except for generalized weakness and pain and tenderness of the neck muscles, we will keep monitoring for now -Subjective feeling of left sided weakness , improved CT angio head,MRV and MRI studies negative -Mild leukocytosis, mostly reactive, no evidence of infection -Dehydration, improved - preeclampsia 6 months post now -Moderate persistent asthma PLAN: Patient had multiple studies done, showing the MRI, MRA, CT angiogram of the head negative. Patient states complaints of pain on the left side of the face mostly behind the eye, could be a component of migraine headaches. Neurology on board and following the patient. Continue with the current medication regimen. Further recommendations to follow depending on the progress of the patient.
--- NOTE | 2020-05-05 14:19 | P.PN ---
Subjective Progress Note Date: 05/04/20 Principal diagnosis: Headaches Mrs. Vasquez is a 25-year-old female with a past medical history of asthma, preeclampsia, has a 6 month old baby at home, patient of Dr. Shlomo Alvarez coming in with a chief complaint of 2 days of headache. Patient was also having left arm weakness along with pain that is on the left side of the head and neck which was 9 out of 10 in severity. So the patient had a CT of the brain showing no acute intracranial process and admitted to the hospital for further evaluation. Neurology initiated workup. Patient had CT Twan of the head and neck that was showing no significant stenosis and normal [place] [facility] [place]. Then eventually patient had an MRV that was normal, there was no suspicious intracranial venous thrombosis. Then patient had MRI of the brain with and without contrast that is essentially within normal limits On 05/03/2020 - patient is lying in bed appears to be no acute distress. Patient still complains of pain on the left side of the face, mostly behind the eye and also complaining of left-sided neck pain. She states the tingling in the left hand has in improved, she states that at this on and off feeling. Patient denies having any weakness of her extremities. She denies having any chest pain or palpitations. No cough or difficulty in breathing. No abdominal pain nausea vomiting or diarrhea. No dysuria or hematuria. On reviewing the vitals, afebrile for the past 24 hours, blood pressure between 120-140/80-90. No new labs from this morning. On 05/04/2020 - patient was sitting up in a chair by the bedside appears to be no acute distress. Yesterday afternoon patient received a dose of sumatriptan, she seems to be responding well to it. Patient denies having any chest pain or palpitations. No cough or difficulty breathing. No abdominal pain nausea vomiting or diarrhea. No dysuria or hematuria. Patient states that she has some dizziness. Denies having any blurring of vision, weakness of her e xtremities. As per discussion with nursing staff, patient states that she is under a lot of financial stress at home. On reviewing the vitals patient's blood pressure has been fluctuating 120-150/70-90. Heart rate within normal limits, dystrophy 16, saturating at 97% on room air. Last from this morning show white count 7.6, hemoglobin 13.6, platelets 220. Sodium 136, potassium 4.7, chloride 101, bicarbonate 31. The enzymes did not creatinine 0.73. Patient's LDL is high at 164, total cholesterol 270, HDL 89. TSH is 2.550. Active Medications Acetaminophen (Acetaminophen Tab 325 Mg Tab) 650 mg PO Q6HR PRN PRN Reason: Pain Last Admin: 05/04/20 22:30 Dose: 650 mg Documented by: Acetaminophen/Aspirin/Caffeine ([id number] 1 Each Tab) 2 each PO Q6HR PRN PRN Reason: Headache Last Admin: 05/04/20 14:25 Dose: 2 each Documented by: Albuterol/Ipratropium (Ipratropium-Albuterol 3 Ml Neb) 3 ml INHALATION RT-Q4H PRN PRN Reason: Wheezing Last Admin: 05/03/20 11:20 Dose: 3 ml Documented by: Atorvastatin Calcium (Atorvastatin 40 Mg Tab) 40 mg PO DAILY [facility] Last Admin: 05/04/20 08:28 Dose: 40 mg Documented by: Capsaicin (Capsaicin 0.025% Cream 60 Gm Tube) 1 applic TOPICAL QID [facility] Last Admin: 05/04/20 21:12 Dose: Not Given Documented by: Cyclobenzaprine HCl (Cyclobenzaprine 10 Mg Tab) 5 mg PO TID PRN PRN Reason: Muscle Spasm Last Admin: 05/03/20 11:35 Dose: 5 mg Documented by: Enalaprilat (Enalaprilat 1.25 Mg/Ml 1 Ml Vial) 1.25 mg IVP Q4HR PRN PRN Reason: Blood Pressure - High Famotidine (Famotidine 20 Mg Tab) 20 mg PO BID [facility] Last Admin: 05/04/20 21:12 Dose: Not Given Documented by: Heparin Sodium (Porcine) (Heparin Sodium,Porcine 5,000 Unit/Ml 1 Ml Vial) 5,000 unit SQ Q12HR [facility] Last Admin: 05/04/20 21:10 Dose: 5,000 unit Documented by: Sodium Chloride (Saline 0.9%) 1,000 mls @ 100 mls/hr IV .Q10H [facility] Last Admin: 05/04/20 15:15 Dose: Not Given Documented by: Lidocaine (Lidocaine 5% Patch) 1 patch TOPICAL DAILY [facility] Last Admin: 11/08/20 08:28 Dose: Not Given Documented by: Morphine Sulfate (Morphine Sulfate 4 Mg/Ml Syringe) 4 mg IVP Q4HR PRN PRN Reason: Pain Last Admin: 05/02/20 13:19 Dose: 4 mg Documented by: Ondansetron HCl (Ondansetron 4 Mg/2 Ml Vial) 4 mg IVP Q6HR PRN PRN Reason: Nausea And Vomiting Last Admin: 05/04/20 16:55 Dose: 4 mg Documented by: Objective - Vital Signs Vital signs: Vital Signs Temp 98.4 F 05/04/20 08:27 Pulse 69 05/04/20 08:27 Resp 18 05/04/20 08:27 BP 110/60 05/04/20 08:27 Pulse Ox 99 05/04/20 08:27 Intake & Output 05/03/20 05/04/20 05/04/20 18:59 06:59 18:59 Intake Total 1190 900 Balance 1190 900 Intake: Oral 1190 900 Other: Voiding Method Toilet # Voids 3 1 2 - Exam PHYSICAL EXAM GENERAL: The patient is alert and oriented x3, not in any acute distress. Well developed, well nourished. HEENT: Pupils are round and equally reacting to light. EOMI. No scleral icterus. No conjunctival pallor. N CARDIOVASCULAR: S1 and S2 present. No murmurs, rubs, or gallops. PULMONARY: Chest is clear to auscultation, no wheezing or crackles. ABDOMEN: Soft, nontender, nondistended, normoactive bowel sounds. No palpable organomegaly. -MUSCULOSKELETAL: No joint swelling or deformity. Muscular tenderness on the posterior left neck EXTREMITIES: No cyanosis, clubbing, or pedal edema. NEUROLOGICAL: Gross neurological examination did not reveal any focal deficits. SKIN: No rashes. no petechiae. - Labs CBC & Chem 7: 05/04/20 15:58 05/04/20 15:58 Assessment and Plan Assessment: Assessment: -Headache with nausea and vomiting and left upper extremity weakness and numbness. With significant tenderness in the left neck muscles. Muscles and symptoms improved except for generalized weakness and pain and tenderness of the neck muscles, we will keep monitoring for now -Subjective feeling of left sided weakness , improved CT angio head,MRV and MRI studies negative -Mild leukocytosis, mostly reactive, no evidence of infection -Dehydration, improved - preeclampsia 6 months post now -Moderate persistent asthma PLAN: Patient had multiple studies done, showing the MRI, MRA, CT angiogram of the head negative. Patient states complaints of pain on the left side of the face mostly behind the eye, could be a component of migraine headaches. N eurology on board and following the patient. As the patient is complaining of dizziness, we will check orthostatics. As the patient's blood pressure has been fluctuating, we'll get him in aldosterone ratio, urine metanephrines. Cardiology consult will be obtained. Discussed with the patient about the high LDL, and suggested about statin use. As per nursing staff report patient has been refusing the statin. Continue with the current medication regimen. Further recommendations to follow depending on the progress of the patient.
--- NOTE | 2020-05-05 14:28 | P.DS ---
Providers Date of admission: 05/03/20 08:16 Expected date of discharge: 05/05/20 Attending physician: Clint Mcleod Consults: 04/30/20 21:48 Consult Physician Urgent Consulting Provider: Lake Diaz Consult Reason/Comments: Cephalgia, reported concern for left-sided weakness, resolved Do you want consulting provider notified?: Yes 05/01/20 11:07 Consult Physician Routine Consulting Provider: Angel Diaz Consult Reason/Comments: cephalgia Do you want consulting provider notified?: Yes 05/04/20 12:16 Consult Physician Routine Consulting Provider: Keena Dawkins Consult Reason/Comments: elevated episodal blood pressure Do you want consulting provider notified?: Yes, Notify in am Primary care physician: Winston Claros [facility] Course: Mrs. Vasquez is a 25-year-old female with a past medical history of asthma, preeclampsia, has a 6 month old baby at home, patient of Dr. Shlomo Alvarez coming in with a chief complaint of 2 days of headache. Patient was also having left arm weakness along with pain that is on the left side of the head and neck which was 9 out of 10 in severity. So the patient had a CT of the brain showing no acute intracranial process and admitted to the hospital for further evaluation. Neurology initiated workup. Patient had CT Twan of the head and neck that was showing no significant stenosis and normal [place]. Then eventually patient had an MRV that was normal, there was no suspicious intracranial venous thrombosis. Then patient had MRI of the brain with and without contrast that is essentially within normal limits Hospital course - On 05/03/2020 - patient is lying in bed appears to be no acute distress. Patient still complains of pain on the left side of the face, mostly behind the eye and also complaining of left-sided neck pain. She states the tingling in the left hand has in improved, she states that at this on and off feeling. Patient denies having any weakness of her extremities. She denies having any chest pain or palpitations. No cough or difficulty in breathing. No abdominal pain nausea vomiting or diarrhea. No dysuria or hematuria. On reviewing the vitals, afebrile for the past 24 hours, blood pressure between 120-140/80-90. No new labs from this morning. On 05/04/2020 - patient was sitting up in a chair by the bedside appears to be no acute distress. Yesterday afternoon patient received a dose of sumatriptan, she seems to be responding well to it. Patient denies having any chest pain or palpitations. No cough or difficulty breathing. No abdominal pain nausea vomiting or diarrhea. No dysuria or hematuria. Patient states that she has some dizziness. Denies having any blurring of vision, weakness of her extremities. As per discussion with nursing staff, patient states that she is under a lot of financial stress at home. On reviewing the vitals patient's blood pressure has been fluctuating 120-150/70-90. Heart rate within normal limits, dystrophy 16, saturating at 97% on room air. Last from this morning show white count 7.6, hemoglobin 13.6, platelets 220. Sodium 136, potassium 4.7, chloride 101, bicarbonate 31. The enzymes did not creatinine 0.73. Patient's LDL is high at 164, total cholesterol 270, HDL 89. TSH is 2.550. On 05/05/2020- patient is comfortably sitting in a chair at bedside. She states that she is straight to go home. Patient denies having any dizziness. She states that her headache is much better. Discussed with the patient about the workup for secondary hypertension initiated, advised her to follow up with her primary care physician. Cardiology evaluated the patient today and advised the patient to follow a low-sodium diet and monitor her blood pressure at home in the morning and evening for the next 1 week, to bring the readings to Dr. Stratton's office. Patient is cleared for discharge by cardiology, neurology and pulmonary. So the patient is being discharged home to have a follow up with her PCP, cardiology and pulmonary. Patient's vitals blood pressure 130/86, heart rate 76, respiratory rate 16, saturating at 97% on room air. Physical exam Neurological: Alert awake oriented 3, no focal deficits Cardiovascular: S1-S2 heard Respiratory: Bilateral breath sounds are positive. No wheeze or crackles. Extremities: No edema DISCHARGE DIAGNOSIS Headache- could be migraine Hyperlipidemia Dehydration- improved Preeclampsia Moderate persistent asthma Leukocytosis- resolved Follow-up: Patient is advised to keep track of her blood pressure readings for the next week and follow up with cardiology. Also advised follow-up with her primary care physician and w pulmonary in 1 week. More than that 35 minutes spent towards the discharge of the patient. Patient Condition at Discharge: Fair Plan - Discharge Summary New Discharge Prescriptions: New Atorvastatin [Lipitor] 40 mg PO DAILY 30 Days #30 tab Continue Albuterol Inhaler [Ventolin Hfa Inhaler] 2 puff INHALATION RT-QID PRN #1 inhaler PRN Reason: Shortness Of Breath Or Wheezing Omalizumab [Xolair] 150 mg SQ Q14D Budesonide [Pulmicort] 0.25 mg INHALATION RT-BID Albuterol Nebulized [Ventolin Nebulized] 2.5 mg INHALATION RT-QID PRN PRN Reason: Shortness Of Breath Montelukast [Singulair] 10 mg PO DAILY Beclomethasone Dipropionate [Qvar 40 mcg Redihaler] 2 puff INHALATION RT-BID Famotidine [Pepcid] 20 mg PO BID #30 tablet traMADol HCL [Ultram] 50 mg PO Q4HR PRN 3 Days #18 tab PRN Reason: Pain Discharge Medication List Albuterol Inhaler [Ventolin Hfa Inhaler] 2 puff INHALATION RT-QID PRN #1 inhaler 12/02/19 [Rx] Albuterol Nebulized [Ventolin Nebulized] 2.5 mg INHALATION RT-QID PRN 04/06/20 [History] Beclomethasone Dipropionate [Qvar 40 mcg Redihaler] 2 puff INHALATION RT-BID 04/06/20 [History] Budesonide [Pulmicort] 0.25 mg INHALATION RT-BID 04/06/20 [History] Montelukast [Singulair] 10 mg PO DAILY 04/06/20 [History] Omalizumab [Xolair] 150 mg SQ Q14D 04/06/20 [History] Famotidine [Pepcid] 20 mg PO BID #30 tablet 04/07/20 [Rx] traMADol HCL [Ultram] 50 mg PO Q4HR PRN 3 Days #18 tab 04/07/20 [Rx] Atorvastatin [Lipitor] 40 mg PO DAILY 30 Days #30 tab 05/05/20 [Rx] Follow up Appointment(s)/Referral(s): Logan Stratton MD [STAFF PHYSICIAN] - 2 Weeks Hyacinth Montero MD [Primary Care Provider] - 1-2 days (please call office on Tuesday to schedule follow-up appointment, office is currently closed) Patient Instructions/Handouts: Acute Headache (ED), Dyspnea (DC), Hypertension (DC) Discharge Disposition: HOME SELF-CARE
== END 2020-05-05 14:30 | disposition home or self-care (01) | DRG 103 ==
LOC: EC 14:47 → 1SOBS 21:48 → OBSVTOIN 05-03 08:16
PROVIDERS: ADMIT Hospitalist; ATTEND Hospitalist
DX: G43.809 Other migraine, not intractable, without status migrainosus (principal); D72.829 Elevated white blood cell count, unspecified; M79.18 Myalgia, other site; M54.2 Cervicalgia; E78.5 Hyperlipidemia, unspecified; J45.40 Moderate persistent asthma, uncomplicated; E86.0 Dehydration; Z79.51 Long term (current) use of inhaled steroids; Z79.899 Other long term (current) drug therapy; Z87.09 Personal history of other diseases of the respiratory system; Z86.32 Personal history of gestational diabetes; Z98.891 History of uterine scar from previous surgery; Z98.818 Other dental procedure status; Z88.0 Allergy status to penicillin; Z82.5 Family history of asthma and other chronic lower respiratory diseases
CPT/HCPCS: 36415; 70450; 70496; 70498; 70546; 70553; 71046; 80048; 80053; 80061; 81001; 81025; 82088; 82533; 83835; 84244; 84443; 85025; 85379; 94640; 96374; 96375; 96376; 99285

== ENCOUNTER 2020-08-06 23:43 | Emergency (ER) | payer OTHER ==
[2020-08-06 23:48] VITALS: TEMP 98.6
--- NOTE | 2020-08-06 23:57 | ED ---
SOB HPI - General Chief Complaint: Shortness of Breath Stated Complaint: Chest Pain, SOB Time Seen by Provider: 08/06/20 23:57 Source: patient, RN notes reviewed, old records reviewed Mode of arrival: wheelchair Limitations: no limitations - History of Present Illness Initial Comments: This is a 25 show female to the ER for evaluation with history of asthma history of asthma chest pain. Patient has had similar planes in the past. Right-sided chest pain worsening she takes a deep breath. No current shortness of breath, been doing at home breathing treatment with no improvement in symptoms. No improvement in pain. Patient has not taken any pain left-sided, no fevers MD Complaint: shortness of breath -: days(s) Severity: moderate Severity scale (1-10): 5 Quality: sharp Consistency: intermittent Improves With: nothing Worsens With: nothing Context: recent URI Associated Symptoms: chest pain, pain with inspiration, cough Treatments Prior to Arrival: bronchodilator - Related Data Home Medications Medication Instructions Recorded Confirmed Albuterol Nebulized [Ventolin 2.5 mg INHALATION RT-QID PRN 04/06/20 04/30/20 Nebulized] Beclomethasone Dipropionate [Qvar 2 puff INHALATION RT-BID 04/06/20 04/30/20 40 mcg Redihaler] Budesonide [Pulmicort] 0.25 mg INHALATION RT-BID 04/06/20 04/30/20 Montelukast [Singulair] 10 mg PO DAILY 04/06/20 04/30/20 Omalizumab [Xolair] 150 mg SQ Q14D 04/06/20 04/30/20 Previous Rx's Medication Instructions Recorded Albuterol Inhaler [Ventolin Hfa 2 puff INHALATION RT-QID PRN #1 12/02/19 Inhaler] inhaler Famotidine [Pepcid] 20 mg PO BID #30 tablet 04/07/20 traMADol HCL [Ultram] 50 mg PO Q4HR PRN 3 Days #18 tab 04/07/20 Atorvastatin [Lipitor] 40 mg PO DAILY 30 Days #30 tab 05/05/20 Allergies Allergy/AdvReac Type Severity Reaction Status Date / Time amoxicillin [Amoxicillin] Allergy Anaphylaxis Verified 08/06/20 23:49 Review of Systems ROS Statement: Those systems with pertinent positive or pertinent negative responses have been documented in the HPI. ROS Other: All systems not noted in ROS Statement are negative. Past Medical History Past Medical History: Asthma Additional Past Medical History / Comment(s): Chronic asthma, lung collapse (April), preclampsia History of Any Multi-Drug Resistant Organisms: None Reported Past Surgical History: Section Additional Past Surgical History / Comment(s): [place] tooth extraction Past Anesthesia/Blood Transfusion Reactions: No Reported Reaction Additional Past Anesthesia/Blood Transfusion Reaction / Comment(s): no anesthesia or blood before Past Psychological History: No Psychological Hx Reported Smoking Status: Never smoker Past Alcohol Use History: None Reported Past Drug Use History: None Reported - Past Family History Father Family Medical History: Asthma Mother Family Medical History: No Reported History General Exam Limitations: no limitations General appearance: alert, in no apparent distress Head exam: Present: atraumatic, normocephalic, normal inspection Eye exam: Present: normal appearance, PERRL, EOMI. Absent: scleral icterus, conjunctival injection, periorbital swelling ENT exam: Present: normal exam, mucous membranes moist Neck exam: Present: normal inspection. Absent: tenderness, meningismus, lymphadenopathy Respiratory exam: Present: normal lung sounds bilaterally. Absent: respiratory distress, wheezes, rales, rhonchi, stridor Cardiovascular Exam: Present: regular rate, normal rhythm, normal heart sounds. Absent: systolic murmur, diastolic murmur, rubs, gallop, clicks GI/Abdominal exam: Present: soft, normal bowel sounds. Absent: distended, tenderness, guarding, rebound, rigid Extremities exam: Present: normal inspection, full ROM, normal capillary refill. Absent: tenderness, pedal edema, joint swelling, calf tenderness Back exam: Present: normal inspection Neurological exam: Present: alert, oriented X3, CN II-XII intact Psychiatric exam: Present: normal affect, normal mood Skin exam: Present: warm, dry, intact, normal color. Absent: rash Course Vital Signs 08/06/20 08/07/20 08/07/20 23:44 00:42 00:52 Temperature 98.6 F Pulse Rate 79 83 90 Respiratory 24 Rate Blood Pressure 150/96 O2 Sat by Pulse 99 Oximetry - Reevaluation(s) Reevaluation #1: 08/07/20 00:56 Medical record is reviewed Reevaluation #2: 08/07/20 00:56 Symptoms are improved here in the emergency department 08/07/20 01:27 Patient continues to have improved breathing, no pain Reevaluation #3: 08/07/20 01:27 Patient informed of results here in the ER, is answered Reevaluation #4: 08/07/20 01:27 Patient feels good for discharge home Medical Decision Making - Medical Decision Making 25 female DF for evaluation. Patient with cough and congestion asthma exacerbation with some chest pain on deep breath which she has had in the past. No findings here on x-ray. Patient symptoms are improved and she can be discharged home Disposition Clinical Impression: Asthma exacerbation, Chest pain, Pleurisy Disposition: HOME SELF-CARE Condition: Good Instructions (If sedation given, give patient instructions): Bronchospasm (ED), Asthma (ED), Acute Bronchitis (ED) Is patient prescribed a controlled substance at d/c from ED?: No Referrals: Hyacinth Montero MD [Primary Care Provider] - 1-2 days
[2020-08-07] MEDS ORDERED: IPRATROPIUM-ALBUTEROL 3 ML NEB INHALATION STA (00:11)
[2020-08-07] MEDS ORDERED: KETOROLAC 15 MG/ML 1 ML VIAL IM STA (00:11)
[2020-08-07] MEDS ORDERED: dexAMETHasone 4 MG TAB PO STA (00:11)
[2020-08-07] MEDS ORDERED: ACETAMINOPHEN TAB 500 MG TAB PO STA (00:11)
--- NOTE | 2020-08-07 00:59 | XR ---
EXAM: XR Chest, 2 Views CLINICAL HISTORY: ITS.REASON XR Reason: cp TECHNIQUE: Frontal and lateral views of the chest. COMPARISON: CXR 04/30/20 FINDINGS: Lungs: Unremarkable. No consolidation. Pleural space: Unremarkable. No pleural effusion or pneumothorax. Heart: Unremarkable. No cardiomegaly or pulmonary vascular congestion. Mediastinum: Unremarkable. Bones/joints: Unremarkable. IMPRESSION: No evidence of acute cardiopulmonary disease.
[2020-08-07 02:13] VITALS: BP 129/77; PULSE 89; RESP 17
== END 2020-08-07 02:15 | disposition home or self-care (01) ==
LOC: EC 23:43
DX: J45.901 Unspecified asthma with (acute) exacerbation (principal); R09.1 Pleurisy; Z79.51 Long term (current) use of inhaled steroids; Z88.0 Allergy status to penicillin
CPT/HCPCS: 71046; 94640; 96372; 99285

== ENCOUNTER 2020-08-11 18:56 | Emergency (ER) | payer OTHER ==
[2020-08-11] MEDS ORDERED: SODIUM CHLORIDE 0.9% 1,000 ML IV STA (19:14)
[2020-08-11] MEDS ORDERED: METOCLOPRAMIDE 5 MG/ML 2 ML VIAL IVP STA (19:14)
[2020-08-11] MEDS ORDERED: KETOROLAC 15 MG/ML 1 ML VIAL IVP STA (19:14)
[2020-08-11] MEDS ORDERED: diphenhydrAMINE 50 MG/ML 1 ML VIAL IVP STA (19:14)
--- NOTE | 2020-08-11 19:33 | ED ---
Headache HPI - General Chief Complaint: Headache Stated Complaint: headache, dizzy Time Seen by Provider: 08/11/20 19:01 Mode of arrival: wheelchair Limitations: no limitations - History of Present Illness Initial Comments: 25 year-old female patient with history of migraine headaches presents to the emergency department for evaluation of headache that started today. Patient sta la nena that after the headache started she became dizzy and shaky. States that it caused her to fall. She denies hitting her head or losing consciousness. Denies any injuries. States that she does have issues with her blood pressure that sometimes gives her a headache.she is currently reporting nausea, photophobia, and feeling generally weak. Denies any numbness, tingling, or focal weakness to extremities. States that she generally does not get dizzy with her migraines, but her headache feels similar. Not currently taking any medication. States there is a chance of . Patient denies any recent rash, fever, chills, cough, shortness of breath, chest pain, abdominal pain, vomiting, diarrhea, constipation, back pain, hematuria, dysuria, urinary urgency, urinary frequency, or any other complaints. - Related Data Home Medications Medication Instructions Recorded Confirmed Beclomethasone Dipropionate [Qvar 2 puff INHALATION RT-BID 04/06/20 08/11/20 40 mcg Redihaler] Budesonide [Pulmicort] 0.25 mg INHALATION RT-BID PRN 04/06/20 08/11/20 Montelukast [Singulair] 10 mg PO DAILY 04/06/20 08/11/20 Previous Rx's Medication Instructions Recorded Albuterol Inhaler [Ventolin Hfa 2 puff INHALATION RT-QID PRN #1 12/02/19 Inhaler] inhaler Allergies Allergy/AdvReac Type Severity Reaction Status Date / Time amoxicillin [Amoxicillin] Allergy Anaphylaxis Verified 08/11/20 20:08 Review of Systems ROS Statement: Those systems with pertinent positive or pertinent negative responses have been documented in the HPI. ROS Other: All systems not noted in ROS Statement are negative. Past Medical History Past Medical History: Asthma Additional Past Medical History / Comment(s): Chronic asthma, lung collapse (April), preclampsia History of Any Multi-Drug Resistant Organisms: None Reported Past Surgical History: Section Additional Past Surgical History / Comment(s): [place] tooth extraction Past Anesthesia/Blood Transfusion Reactions: No Reported Reaction Additional Past Anesthesia/Blood Transfusion Reaction / Comment(s): no anesthesia or blood before Past Psychological History: No Psychological Hx Reported Smoking Status: Never smoker Past Alcohol Use History: None Reported Past Drug Use History: None Reported - Past Family History Father Family Medical History: Asthma Mother Family Medical History: No Reported History General Exam Limitations: no limitations General appearance: alert, in no apparent distress, other (this is a well- developed, well-nourished adult female patient in no acute distress.) Eye exam: Present: normal appearance, PERRL, EOMI. Absent: scleral icterus, conjunctival injection, nystagmus, periorbital swelling ENT exam: Present: normal exam, normal oropharynx, mucous membranes moist Respiratory exam: Present: normal lung sounds bilaterally. Absent: respiratory distress, wheezes, rales, rhonchi, stridor Cardiovascular Exam: Present: regular rate, normal rhythm, normal heart sounds. Absent: systolic murmur, diastolic murmur, rubs, gallop, clicks GI/Abdominal exam: Present: soft, normal bowel sounds. Absent: distended, tenderness, guarding, rebound, rigid Neurological exam: Present: alert, oriented X3, CN II-XII intact Expanded Speech: Present: fluid speech Cranial nerves: EOM's Intact: Normal Cerebellar function: Finger to Nose: Normal Motor strength exam: RUE: 5, LUE: 5, RLE: 5, LLE: 5 Psychiatric exam: Present: normal affect, normal mood Skin exam: Present: warm, dry, intact, normal color. Absent: rash Course Vital Signs 08/11/20 08/11/20 18:58 20:33 Temperature 97.9 F Pulse Rate 115 H 65 Respiratory 20 18 Rate Blood Pressure 153/103 129/76 O2 Sat by Pulse 99 100 Oximetry Medical Decision Making - Medical Decision Making 25-year-old female patient presents to the emergency department today for evaluation of migraine headache. Symptoms include headache, photophobia, nausea, and dizziness. Physical examination is unremarkable. She is neurologically intact with no focal deficits. Labs reviewed and are unremarkable. She is given IV fluids and medications while here. Upon reevaluation states her symptoms are somewhat improved. She does feel comfortable being discharged home. She is instructed to follow-up through primary care physician for recheck in 1-2 days. Return parameters were discussed in detail. She verbalizes understanding and agrees with this plan. Case discussed with my attending. Dr. Almendarez. - Lab Data Result diagrams: 08/11/20 19:49 08/11/20 19:49 Lab Results 08/11/20 08/11/20 08/11/20 Range/Units 19:49 19:49 19:49 WBC 8.0 (3.8-10.6) k/uL RBC 4.81 (3.80-5.40) m/uL Hgb 14.7 (11.4-16.0) gm/dL Hct 45.7 (34.0-46.0) % MCV 95.0 (80.0-100.0) fL MCH 30.6 (25.0-35.0) pg MCHC 32.2 (31.0-37.0) g/dL RDW 13.6 (11.5-15.5) % Plt Count 281 (150-450) k/uL MPV 7.2 Neutrophils % 74 % Lymphocytes % 20 % Monocytes % 3 % Eosinophils % 2 % Basophils % 0 % Neutrophils # 5.9 (1.3-7.7) k/uL Lymphocytes # 1.6 (1.0-4.8) k/uL Monocytes # 0.3 (0-1.0) k/uL Eosinophils # 0.2 (0-0.7) k/uL Basophils # 0.0 (0-0.2) k/uL Sodium (137-145) mmol/L Potassium (3.5-5.1) mmol/L Chloride (98-107) mmol/L Carbon Dioxide (22-30) mmol/L Anion Gap mmol/L BUN (7-17) mg/dL Creatinine (0.52-1.04) mg/dL Est GFR (CKD-EPI)AfAm (>60 ml/min/1.73 sqM) Est GFR (CKD-EPI)NonAf (>60 ml/min/1.73 sqM) Glucose (74-99) mg/dL Calcium (8.4-10.2) mg/dL Total Bilirubin (0.2-1.3) mg/dL AST (14-36) U/L ALT (4-34) U/L Alkaline Phosphatase (38-126) U/L Total Protein (6.3-8.2) g/dL Albumin (3.5-5.0) g/dL Urine Color Light Yellow Urine Appearance Cloudy H (Clear) Urine pH 7.0 (5.0-8.0) Ur Specific [place] 1.018 (1.001-1.035) Urine Protein Negative (Negative) Urine Glucose (UA) Negative (Negative) Urine Ketones 2+ H (Negative) Urine Blood Negative (Negative) Urine Nitrite Negative (Negative) Urine Bilirubin Negative (Negative) Urine Urobilinogen <2.0 (<2.0) mg/dL Ur Leukocyte Esterase Negative (Negative) Urine RBC <1 (0-5) /hpf Urine WBC 5 (0-5) /hpf Urine WBC Clumps Few H (None) /hpf Ur Squamous Epith Cells 11 H (0-4) /hpf Urine Bacteria Rare H (None) /hpf Hyaline Casts 2 (0-2) /lpf Urine Mucus Moderate H (None) /hpf Urine Yeast (Budding) Many H (None) /hpf Urine Sperm Rare (None) /hpf Urine HCG, Qual Not Detected (Not Detectd) 08/11/20 Range/Units 19:49 WBC (3.8-10.6) k/uL RBC (3.80-5.40) m/uL Hgb (11.4-16.0) gm/dL Hct (34.0-46.0) % MCV (80.0-100.0) fL MCH (25.0-35.0) pg MCHC (31.0-37.0) g/dL RDW (11.5-15.5) % Plt Count (150-450) k/uL MPV Neutrophils % % Lymphocytes % % Monocytes % % Eosinophils % % Basophils % % Neutrophils # (1.3-7.7) k/uL Lymphocytes # (1.0-4.8) k/uL Monocytes # (0-1.0) k/uL Eosinophils # (0-0.7) k/uL Basophils # (0-0.2) k/uL Sodium 136 L (137-145) mmol/L Potassium 4.0 (3.5-5.1) mmol/L Chloride 101 (98-107) mmol/L Carbon Dioxide 26 (22-30) mmol/L Anion Gap 9 mmol/L BUN 11 (7-17) mg/dL Creatinine 0.69 (0.52-1.04) mg/dL Est GFR (CKD-EPI)AfAm >90 (>60 ml/min/1.73 sqM) Est GFR (CKD-EPI)NonAf >90 (>60 ml/min/1.73 sqM) Glucose 107 H (74-99) mg/dL Calcium 10.0 (8.4-10.2) mg/dL Total Bilirubin 0.7 (0.2-1.3) mg/dL AST 34 (14-36) U/L ALT 22 (4-34) U/L Alkaline Phosphatase 107 (38-126) U/L Total Protein 9.0 H (6.3-8.2) g/dL Albumin 5.1 H (3.5-5.0) g/dL Urine Color Urine Appearance (Clear) Urine pH (5.0-8.0) Ur Specific [place] (1.001-1.035) Urine Protein (Negative) Urine Glucose (UA) (Negative) Urine Ketones (Negative) Urine Blood (Negative) Urine Nitrite (Negative) Urine Bilirubin (Negative) Urine Urobilinogen (<2.0) mg/dL Ur Leukocyte Esterase (Negative) Urine RBC (0-5) /hpf Urine WBC (0-5) /hpf Urine WBC Clumps (None) /hpf Ur Squamous Epith Cells (0-4) /hpf Urine Bacteria (None) /hpf Hyaline Casts (0-2) /lpf Urine Mucus (None) /hpf Urine Yeast (Budding) (None) /hpf Urine Sperm (None) /hpf Urine HCG, Qual (Not Detectd) - EKG Data -: EKG Interpreted by Me EKG Comments: EKG obtained at 1932 shows normal sinus rhythm with a sinus arrhythmia, ventricular rate 78, MD interval 178, QRS duration 88, QT 398, QTC 453. No evidence of ST elevation or depression. Disposition Clinical Impression: Headache, Dizziness Disposition: HOME SELF-CARE Condition: Good Instructions (If sedation given, give patient instructions): Acute Headache (ED ), Dizziness (ED) Additional Instructions: Follow-up through primary care physician for recheck in 1-2 days. Return to the emergency department for any new, worsening, or concerning symptoms. Is patient prescribed a controlled substance at d/c from ED?: No Referrals: Hyacinth Montero MD [Primary Care Provider] - 1-2 days Time of Disposition: 21:30
[2020-08-11 20:05] LABS: Basophils % (A) 0 %; Eosinophils # (A) 0.2 k/uL (0-0.7); Eosinophils % (A) 2 %; HCT 45.7 % (34.0-46.0); HGB 14.7 gm/dL (11.4-16.0); Lymphocytes # (A) 1.6 k/uL (1.0-4.8); Lymphocytes % (A) 20 %; MCH 30.6 pg (25.0-35.0); MCHC 32.2 g/dL (31.0-37.0); Mean Platelet Volume 7.2; Monocytes # (A) 0.3 k/uL (0-1.0); Monocytes % (A) 3 %; Neutrophils # (A) 5.9 k/uL (1.3-7.7); Neutrophils % (A) 74 %; Platelet Count 281 k/uL (150-450); RBC 4.81 m/uL (3.80-5.40); RDW 13.6 % (11.5-15.5)
[2020-08-11 20:07] LABS: Appearance,Urine Cloudy (Clear); Bilirubin,Urine Negative (Negative); Blood,Urine Negative (Negative); Color,Urine Light Yellow; Glucose,Urine (UA) Negative (Negative); Ketones,Urine 2+ (Negative); Leukocyte Esterase,Urine Negative (Negative); Nitrite,Urine Negative (Negative); Protein,Urine Negative (Negative); Specific Gravity,Urine 1.018 (1.001-1.035); Urobilinogen,Urine <2.0 mg/dL (<2.0)
[2020-08-11 20:08] LABS: Bacteria,Urine Rare /hpf; Budding Yeast,Urine Many /hpf; Hyaline Casts,Urine 2 /lpf (0-2); Mucus,Urine Moderate /hpf; RBC,Urine <1 /hpf (0-5); Sperm,Urine Rare /hpf; Squamous Epithelial Cell,Urine 11 /hpf (0-4); WBC,Urine 5 /hpf (0-5)
[2020-08-11 20:16] LABS: ALT 22 U/L (4-34); AST 34 U/L (14-36); African American GFR (CKD) >90 (>60 ml/min/1.73 sqM); Albumin 5.1 g/dL (3.5-5.0); Alkaline Phosphatase 107 U/L (38-126); Anion Gap 9 mmol/L; Blood Urea Nitrogen 11 mg/dL (7-17); Carbon Dioxide 26 mmol/L (22-30); Chloride 101 mmol/L (98-107); Glucose 107 mg/dL (74-99); Non-African American GFR(CKD) >90 (>60 ml/min/1.73 sqM); Sodium 136 mmol/L (137-145); Total Bilirubin 0.7 mg/dL (0.2-1.3)
[2020-08-11] MEDS ORDERED: DEXAMETHASONE SOD PHOSPHATE 10 MG/ML 1 ML VIAL IV STA (20:32)
[2020-08-11] MEDS ORDERED: ORPHENADRINE 30 MG/ML 2 ML VIAL IVP STA (20:32)
[2020-08-11 20:36] VITALS: RESP 18
[2020-08-11 22:12] VITALS: BP 139/91; PULSE 91; TEMP 97.8
== END 2020-08-11 22:04 | disposition home or self-care (01) ==
LOC: EC 18:56
DX: G43.909 Migraine, unspecified, not intractable, without status migrainosus (principal); J45.909 Unspecified asthma, uncomplicated; Z79.51 Long term (current) use of inhaled steroids; Z88.0 Allergy status to penicillin
CPT/HCPCS: 36415; 93005; 80053; 85025; 81001; 81025; 99283; 96374; 96375 ×4; 96361; J1200; J1100; J2360; J2765; J1885

== ENCOUNTER 2020-12-21 01:08 | Emergency (ER) | payer OTHER ==
[2020-12-21 01:16] VITALS: RESP 16; TEMP 98.9
[2020-12-21] MEDS ORDERED: ACETAMINOPHEN TAB 500 MG TAB PO STA (01:31)
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
[2020-12-21 03:28] VITALS: BP 133/72; PULSE 82
== END 2020-12-21 03:28 | disposition home or self-care (01) ==
LOC: EC 01:08
DX: S50.311A Abrasion of right elbow, initial encounter (principal); M25.511 Pain in right shoulder; M54.5 Low back pain; M54.2 Cervicalgia; J45.909 Unspecified asthma, uncomplicated; Z79.51 Long term (current) use of inhaled steroids; Z88.0 Allergy status to penicillin; Z79.899 Other long term (current) drug therapy; Y04.0XXA Assault by unarmed brawl or fight, initial encounter
CPT/HCPCS: 70450; 71046; 72125; 72170; 72220; 99284

== ENCOUNTER 2021-03-10 16:00 | Emergency (ER) | payer OTHER ==
[2021-03-10 16:07] VITALS: TEMP 98.1
[2021-03-10] MEDS ORDERED: IPRATROPIUM-ALBUTEROL 3 ML NEB INHALATION STA (16:31)
[2021-03-10] MEDS ORDERED: methylPREDNISolone SOD SUCCI 125 MG/2 ML VIAL IM ONE (16:32)
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
[2021-03-10] MEDS ORDERED: predniSONE 20 MG TAB PO STA (17:11)
--- NOTE | 2021-03-10 17:29 | XR ---
EXAMINATION TYPE: XR chest 2V DATE OF EXAM: 03/10/2021 COMPARISON: NONE HISTORY: 12/21/2020 TECHNIQUE: 2 views FINDINGS: Heart and mediastinum are normal. Lungs are clear. Diaphragm is normal. Bony thorax is inta ct. IMPRESSION: Normal chest. No change.
[2021-03-10 18:48] VITALS: BP 132/90; PULSE 103; RESP 18
== END 2021-03-10 18:48 | disposition home or self-care (01) ==
LOC: EC 16:00
DX: J45.901 Unspecified asthma with (acute) exacerbation (principal); Z79.51 Long term (current) use of inhaled steroids
CPT/HCPCS: 94640; 71046; 99285; J7512

== ENCOUNTER 2021-03-27 18:37 | Inpatient (IN) | payer OTHER ==
[2021-03-27] MEDS ORDERED: IPRATROPIUM-ALBUTEROL 3 ML NEB INHALATION STA (18:58)
--- NOTE | 2021-03-27 19:01 | ED ---
General Adult HPI - General Chief complaint: Shortness of Breath Stated complaint: asthma Time Seen by Provider: 03/27/21 18:50 Source: patient, RN notes reviewed Mode of arrival: ambulatory Limitations: no limitations - History of Present Illness Initial comments: Patient is a pleasant 26-year-old female presenting to the emergency department with difficulty in breathing. Patient does have history of asthma with similar symptoms. Onset of symptoms was yesterday. Patient is wheezing. Patient has continued symptoms despite nebulizer and inhaler at home. No fever. Patient does have mild dry cough. Patient does have history of pneumothorax once previously. No leg pain or leg swelling. Patient has some discomfort with cough however that is chronic. - Related Data Home Medications Medication Instructions Recorded Confirmed Budesonide [Pulmicort] 0.25 mg INHALATION RT-BID 04/06/20 03/10/21 Albuterol Nebulized [Ventolin 2.5 mg INHALATION RT-Q6H 03/10/21 03/10/21 Nebulized] NIFEdipine XL [Procardia Xl] 30 mg PO DAILY 03/10/21 03/10/21 Previous Rx's Medication Instructions Recorded Albuterol Inhaler [Ventolin Hfa 2 puff INHALATION RT-QID PRN #1 12/02/19 Inhaler] inhaler predniSONE [Deltasone] 40 mg PO DAILY #8 tab 03/10/21 Allergies Allergy/AdvReac Type Severity Reaction Status Date / Time amoxicillin [Amoxicillin] Allergy Anaphylaxis Verified 03/27/21 19:49 Review of Systems ROS Statement: Those systems with pertinent positive or pertinent negative responses have been documented in the HPI. ROS Other: All systems not noted in ROS Statement are negative. Constitutional: Denies: fever Eyes: Denies: eye pain ENT: Denies: ear pain Respiratory: Reports: cough, dyspnea Cardiovascular: Denies: palpitations Endocrine: Denies: fatigue Gastrointestinal: Denies: abdominal pain Genitourinary: Denies: dysuria Musculoskeletal: Denies: back pain Skin: Denies: rash Neurological: Denies: weakness Past Medical History Past Medical History: Asthma Additional Past Medical History / Comment(s): Chronic asthma, lung collapse (April 2019), preclampsia History of Any Multi-Drug Resistant Organisms: None Reported Past Surgical History: Section Additional Past Surgical History / Comment(s): [place] tooth extraction Past Anesthesia/Blood Transfusion Reactions: No Reported Reaction Additional Past Anesthesia/Blood Transfusion Reaction / Comment(s): no anesthesia or blood before Past Psychological History: No Psychological Hx Reported Smoking Status: Never smoker Past Alcohol Use History: None Reported Past Drug Use History: None Reported - Past Family History Father Family Medical History: Asthma Mother Family Medical History: No Reported History General Exam Limitations: no limitations General appearance: alert Head exam: Present: normocephalic Eye exam: Present: normal appearance ENT exam: Present: normal oropharynx Neck exam: Present: normal inspection Respiratory exam: Present: respiratory distress, wheezes, decreased breath sounds Cardiovascular Exam: Present: tachycardia GI/Abdominal exam: Present: soft. Absent: tenderness Extremities exam: Present: normal inspection. Absent: pedal edema, calf tenderness Neurological exam: Present: alert Psychiatric exam: Present: normal affect, normal mood Skin exam: Present: normal color Course Vital Signs 03/27/21 03/27/21 03/27/21 18:42 18:44 19:04 Temperature 97.9 F Pulse Rate 116 H 95 Respiratory 30 H 22 24 Rate Blood Pressure 133/76 O2 Sat by Pulse 98 Oximetry 03/27/21 19:13 Temperature Pulse Rate 96 Respiratory 23 Rate Blood Pressure O2 Sat by Pulse Oximetry - Reevaluation(s) Reevaluation #1: 03/27/21 19:52 Patient does meet sepsis criteria diagnosed at 1950. Blood culture and lactic acid and IV antibiotics will be ordered. Medical Decision Making - Medical Decision Making Patient reevaluated and significantly improved. Lung sounds are rhonchorous. Heart rate 118. Patient updated on results and plan. Case discussed with Dr. Jimenez, who will admit For Dr. lindsay. - Radiology Data Radiology results: image reviewed (Chest x-ray shows right upper lobe infiltrate) Critical Care Time Critical Care Time: Yes Total Critical Care Time: 31 Disposition Clinical Impression: Asthma exacerbation, Pneumonia Disposition: ADMITTED IP TO THIS HOSP Is patient prescribed a controlled substance at d/c from ED?: No Referrals: Hyacinth Montero MD [Primary Care Provider] - 1-2 days Decision Time: 19:53
--- NOTE | 2021-03-27 19:16 | XR ---
EXAMINATION TYPE: XR chest 1V portable DATE OF EXAM: 03/27/2021 COMPARISON: 03/10/2021 HISTORY: Short of breath TECHNIQUE: Ling view FINDINGS: There is some patchy infiltrate right upper lobe. The other lung schulte are clear. Heart si ze is normal. There are no hilar masses. Costophrenic angles are clear. IMPRESSION: There is some right upper lobe pneumonia which is new compared to old exam.
[2021-03-27] MEDS ORDERED: SODIUM CHLORIDE 0.9% 1,000 ML IV STA (19:53)
[2021-03-27] MEDS ORDERED: methylPREDNISolone SOD SUCCI 125 MG/2 ML VIAL IV STA (19:53)
[2021-03-27] MEDS ORDERED: AZITHROMYCIN 500 MG in SODIUM CHLORIDE 0.9% 250 ML IVPB STA (19:54)
[2021-03-27] MEDS ORDERED: PNEUMONIA PROTOCOL UTILIZED 1 EACH MISC PO PRN (19:54)
[2021-03-27] MEDS ORDERED: IPRATROPIUM-ALBUTEROL 3 ML NEB INHALATION PRN (19:54)
[2021-03-27] MEDS ORDERED: CEFEPIME 2 GM in SODIUM CHLORIDE 0.9% 100 ML IVPB STA (19:56)
[2021-03-27 20:39] LABS: Basophils % (A) 0 %; Eosinophils # (A) 0.5 k/uL (0-0.7); Eosinophils % (A) 5 %; HCT 41.6 % (34.0-46.0); HGB 13.5 gm/dL (11.4-16.0); Lymphocytes # (A) 1.9 k/uL (1.0-4.8); Lymphocytes % (A) 20 %; MCH 30.4 pg (25.0-35.0); MCHC 32.4 g/dL (31.0-37.0); Monocytes # (A) 0.4 k/uL (0-1.0); Monocytes % (A) 5 %; Neutrophils # (A) 6.9 k/uL (1.3-7.7); Neutrophils % (A) 70 %; Platelet Count 236 k/uL (150-450); RBC 4.42 m/uL (3.80-5.40); RDW 12.3 % (11.5-15.5); WBC 9.8 k/uL (3.8-10.6)
[2021-03-27] MEDS ORDERED: ACETAMINOPHEN TAB 500 MG TAB PO STA (20:50)
[2021-03-27 21:54] LABS: ALT 12 U/L (4-34); AST 20 U/L (14-36); African American GFR (CKD) >90 (>60 ml/min/1.73 sqM); Albumin 4.1 g/dL (3.5-5.0); Albumin/Globulin Ratio 1.5; Alkaline Phosphatase 79 U/L (38-126); Anion Gap 10 mmol/L; Blood Urea Nitrogen 13 mg/dL (7-17); Calcium 9.6 mg/dL (8.4-10.2); Carbon Dioxide 20 mmol/L (22-30); Chloride 105 mmol/L (98-107); Globulin 2.8 g/dL; Glucose 102 mg/dL (74-99); Non-African American GFR(CKD) >90 (>60 ml/min/1.73 sqM); Potassium 3.6 mmol/L (3.5-5.1); Sodium 135 mmol/L (137-145); Total Bilirubin 0.4 mg/dL (0.2-1.3); Total Protein 6.9 g/dL (6.3-8.2)
[2021-03-27] MEDS: IPRATROPIUM-ALBUTEROL 3 ML NEB INHALATION SCH (22:18)
[2021-03-27] MEDS: methylPREDNISolone SOD SUCCI 125 MG/2 ML VIAL IV SCH (23:53)
[2021-03-28] MEDS ORDERED: guaiFENesin SYRUP 100MG/5ML 200 MG/10 ML CUP PO PRN (05:49)
[2021-03-28] MEDS ORDERED: ACETAMINOPHEN TAB 325 MG TAB PO PRN (05:50)
[2021-03-28] MEDS: methylPREDNISolone SOD SUCCI 125 MG/2 ML VIAL IV SCH ×2 (05:57→12:03)
--- NOTE | 2021-03-28 06:56 | XR ---
EXAMINATION TYPE: XR chest 2V DATE OF EXAM: 03/28/2021 COMPARISON: Chest x-ray from yesterday and older studies. HISTORY: Pneumonia. TECHNIQUE: Frontal and lateral views of the chest are obtained. FINDINGS: Improved aeration right upper lung. There is no new suspicious focal air space opacity, ple ural effusion, or pneumothorax seen. The cardiac silhouette size is stable and within normal limits. The osseous structures are intact. IMPRESSION: Improving right upper lung acute infiltrate. No new infiltrate is present.
[2021-03-28] MEDS: IPRATROPIUM-ALBUTEROL 3 ML NEB INHALATION SCH (07:25)
[2021-03-28 08:55] VITALS: BP 126/75; RESP 17; TEMP 98.3
[2021-03-28] MEDS ORDERED: CEFEPIME 2 GM in SODIUM CHLORIDE 0.9% 100 ML IVPB SCH (09:00)
[2021-03-28 12:51] VITALS: PULSE 110
--- NOTE | 2021-03-28 13:07 | P.HPIM ---
History of Present Illness Impression a pleasant 26-year-old female with known history of asthma came in because of shortness of breath which is not resolved by her usual breathing treatments. Patient denied any fever chills patient doesn't have any significa nt leukocytosis chest x-ray was done which was read as a pneumonia reviewed the chest x-ray medically patient doesn't appear to have pneumonia considering the patient is I'll discharge the patient on 5 days of Ceftin. Patient isn't completely resolved may not need any systemic steroids patient will continue her inhaled steroids and albuterol patient is otherwise clinically doing well and will be discharged today patient beta-hCG is positive and patient is and her last menstrual period was 8 weeks ago. REVIEW OF SYSTEMS: CONSTITUTIONAL: No fever, no malaise, no fatigue. HEENT: No recent visual problems or hearing problems. Denied any sore throat. CARDIOVASCULAR: No chest pain, orthopnea, PND, no palpitations, no syncope. PULMONARY: no hemoptysis. GASTROINTESTINAL: No diarrhea, no nausea, no vomiting, no abdominal pain. NEUROLOGICAL: No headaches, no weakness, no numbness. HEMATOLOGICAL: Denies any bleeding or petechiae. GENITOURINARY: Denies any burning micturition, frequency, or urgency. MUSCULOSKELETAL/RHEUMATOLOGICAL: Denies any joint pain, swelling, or any muscle pain. ENDOCRINE: Denies any polyuria or polydipsia. The rest of the 14-point review of systems is negative. PHYSICAL EXAMINATION: GENERAL: The patient is alert and oriented x3, not in any acute distress. Thin built female HEENT: Pupils are round and equally reacting to light. EOMI. No scleral icterus. No conjunctival pallor. Normocephalic, atraumatic. No pharyngeal erythema. No thyromegaly. CARDIOVASCULAR: S1 and S2 present. No murmurs, rubs, or gallops. PULMONARY: Chest is clear to auscultation, no wheezing or crackles. ABDOMEN: Soft, nontender, nondistended, normoactive bowel sounds. No palpable organomegaly. MUSCULOSKELETAL: No joint swelling or deformity. EXTREMITIES: No cyanosis, clubbing, or pedal edema. NEUROLOGICAL: Gross neurological examination did not reveal any focal deficits. SKIN: No rashes. Assessment and plan 1 acute exacerbation of asthma with low possibly of pneumonia. Considering her status are good and the do her 5 days of her Ceftin. Patient may not require any other systemic steroids was treated with systemic steroids here in the hospital patient will continue her albuterol and inhalational treatments -Tachycardia: Patient at baseline has tachycardia tachycardia did improve some of the tachycardia is probably secondary to hypoxemia. -History of hypertension. Patient will be discharged today with the above-mentioned plan Past Medical History Past Medical History: Asthma Additional Past Medical History / Comment(s): Chronic asthma, lung collapse (April 2019), preclampsia History of Any Multi-Drug Resistant Organisms: None Reported Past Surgical History: Section Additional Past Surgical History / Comment(s): [place] tooth extraction Past Anesthesia/Blood Transfusion Reactions: No Reported Reaction Additional Past Anesthesia/Blood Transfusion Reaction / Comment(s): no anesthesia or blood before Past Psychological History: No Psychological Hx Reported Additional Psychological History / Comment(s): Pt resides with her 3 children, ages 5yrs and 1 year old and 5 week old. 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 Smoking Status: Never smoker Past Alcohol Use History: None Reported Past Drug Use History: None Reported - Past Family History Father Family Medical History: Asthma Mother Family Medical History: No Reported History Medications and Allergies Home Medications Medication Instructions Recorded Confirmed Type Albuterol Inhaler [Ventolin Hfa 2 puff INHALATION RT-QID PRN #1 12/02/19 03/27/21 Rx Inhaler] inhaler Budesonide [Pulmicort] 0.25 mg INHALATION RT-BID 04/06/20 03/27/21 History Albuterol Nebulized [Ventolin 2.5 mg INHALATION RT-Q6H 03/10/21 03/27/21 History Nebulized] Montelukast [Singulair] 10 mg PO DAILY 03/27/21 03/27/21 History Pnv,Calcium 72/Iron/Folic Acid 1 tab PO DAILY 03/27/21 03/27/21 History [ Plus Tablet] Cefuroxime Axetil [Ceftin] 500 mg PO BID 5 Days #10 tab 03/28/21 Rx Allergies Allergy/AdvReac Type Severity Reaction Status Date / Time amoxicillin [Amoxicillin] Allergy Anaphylaxis Verified 03/27/21 19:49 Physical Exam Vitals: Vital Signs Temp Pulse Pulse Resp BP BP Pulse Ox 03/28/21 11:58 110 H 03/28/21 11:47 106 H 03/28/21 08:55 98.3 F 99 17 126/75 98 03/28/21 07:27 98 03/28/21 07:26 99 03/28/21 07:15 98 03/28/21 06:43 18 03/28/21 02:00 98.1 F 111 H 19 119/70 95 03/28/21 01:57 110 H 03/28/21 01:48 106 H 03/27/21 22:27 110 H 03/27/21 22:18 104 H 03/27/21 22:15 98.2 F 110 H 22 154/85 96 03/27/21 19:13 96 23 03/27/21 19:04 95 24 03/27/21 18:44 22 03/27/21 18:42 97.9 F 116 H 30 H 133/76 98 Intake and Output 03/27/21 03/28/21 03/28/21 22:59 06:59 14:59 Other: # Voids 1 2 Weight 46.72 kg Results CBC & Chem 7: 03/27/21 19:57 03/27/21 21:20 Labs: Abnormal Lab Results - Last 24 Hours (Table) 03/27/21 Range/Units 21:20 Sodium 135 L (137-145) mmol/L Carbon Dioxide 20 L (22-30) mmol/L Glucose 102 H (74-99) mg/dL
--- NOTE | 2021-03-28 13:09 | P.DS ---
Providers Date of admission: 03/27/21 19:54 Attending physician: Maxx Chowdary MD Primary care physician: Winston [facility] Course: Please refer my HPI for further details Plan - Discharge Summary New Discharge Prescriptions: New Cefuroxime Axetil [Ceftin] 500 mg PO BID 5 Days #10 tab Continue Albuterol Inhaler [Ventolin Hfa Inhaler] 2 puff INHALATION RT-QID PRN #1 inhaler PRN Reason: Shortness Of Breath Or Wheezing Budesonide [Pulmicort] 0.25 mg INHALATION RT-BID Pnv,Calcium 72/Iron/Folic Acid [ Plus Tablet] 1 tab PO DAILY Albuterol Nebulized [Ventolin Nebulized] 2.5 mg INHALATION RT-Q6H Montelukast [Singulair] 10 mg PO DAILY Discharge Medication List Albuterol Inhaler [Ventolin Hfa Inhaler] 2 puff INHALATION RT-QID PRN #1 inhaler 12/02/19 [Rx] Budesonide [Pulmicort] 0.25 mg INHALATION RT-BID 04/06/20 [History] Albuterol Nebulized [Ventolin Nebulized] 2.5 mg INHALATION RT-Q6H 03/10/21 [History] Montelukast [Singulair] 10 mg PO DAILY 03/27/21 [History] Pnv,Calcium 72/Iron/Folic Acid [ Plus Tablet] 1 tab PO DAILY 03/27/21 [History] Cefuroxime Axetil [Ceftin] 500 mg PO BID 5 Days #10 tab 03/28/21 [Rx] Follow up Appointment(s)/Referral(s): Hyacinth Montero MD [Primary Care Provider] - 3 Days
[2021-03-28 13:18] VITALS: BMI 18.8
[2021-03-28] MEDS ORDERED: AZITHROMYCIN 500 MG TAB PO SCH (18:00)
== END 2021-03-28 14:32 | disposition home or self-care (01) | DRG 832 ==
LOC: EC 18:37 → 4SSUR 19:54
PROVIDERS: ADMIT Internal Medicine; ATTEND Internal Medicine
DX: O99.511 Diseases of the respiratory system complicating pregnancy, first trimester (principal); J45.901 Unspecified asthma with (acute) exacerbation; Z20.822 Contact with and (suspected) exposure to COVID-19; Z79.899 Other long term (current) drug therapy; Z82.5 Family history of asthma and other chronic lower respiratory diseases; R09.02 Hypoxemia; Z3A.08 8 weeks gestation of pregnancy
CPT/HCPCS: 71045; 71046; 80053; 81025; 83605; 85025; 87040; 87635; 94640; 94760; 99291

== ENCOUNTER 2021-03-30 03:10 | Emergency (ER) | payer OTHER ==
[2021-03-30 03:18] VITALS: RESP 20; TEMP 97.9
[2021-03-30] MEDS ORDERED: diphenhydrAMINE 50 MG/ML 1 ML VIAL IVP STA (04:02)
[2021-03-30] MEDS ORDERED: FAMOTIDINE 20 MG/2 ML VIAL IV STA (04:02)
[2021-03-30] MEDS ORDERED: SODIUM CHLORIDE 0.9% 500 ML 500 ML IV STA (04:02)
--- NOTE | 2021-03-30 05:59 | ED ---
General Adult HPI - General Chief complaint: Recheck/Abnormal Lab/Rx Stated complaint: poss allergic reaction Time Seen by Provider: 03/30/21 03:30 Source: patient Mode of arrival: ambulatory - History of Present Illness Initial comments: This patient is a 26-year-old woman who presents to be evaluated after she developed an itching in her throat after taking antibiotics that she was prescribed on discharge to continue treatment for pneumonia. -: hour(s) Quality: other (Itching) Consistency: constant Improves with: none Worsens with: none Treatments Prior to Arrival: none - Related Data Home Medications Medication Instructions Recorded Confirmed Budesonide [Pulmicort] 0.25 mg INHALATION RT-BID 04/06/20 04/09/21 Albuterol Nebulized [Ventolin 2.5 mg INHALATION RT-Q6H 03/10/21 04/09/21 Nebulized] Pnv,Calcium 72/Iron/Folic Acid 1 tab PO DAILY 03/27/21 04/09/21 [ Plus Tablet] Butalb/APAP/Caff 50-325-40Mg 1 tab PO TID PRN 04/09/21 04/09/21 [Fioricet 50-325-40] Previous Rx's Medication Instructions Recorded Albuterol Inhaler [Ventolin Hfa 2 puff INHALATION RT-QID PRN #1 12/02/19 Inhaler] inhaler predniSONE [Deltasone] 40 mg PO DAILY #8 tab 04/09/21 Allergies Allergy/AdvReac Type Severity Reaction Status Date / Time amoxicillin [Amoxicillin] Allergy Anaphylaxis Verified 04/09/21 19:06 cefuroxime Allergy Rash/Hives Verified 04/09/21 19:06 Review of Systems ROS Statement: Those systems with pertinent positive or pertinent negative responses have been documented in the HPI. ROS Other: All systems not noted in ROS Statement are negative. Constitutional: Denies: fever, chills ENT: Reports: as per HPI, throat pain Respiratory: Denies: cough, dyspnea Cardiovascular: Denies: chest pain, palpitations, dyspnea on exertion, orthopnea Gastrointestinal: Denies: abdominal pain, vomiting, diarrhea Genitourinary: Denies: dysuria, hematuria Musculoskeletal: Denies: back pain Skin: Denies: rash Neurological: Denies: headache, weakness, numbness Past Medical History Past Medical History: Asthma Additional Past Medical History / Comment(s): Chronic asthma, lung collapse (April 2019), preclampsia History of Any Multi-Drug Resistant Organisms: None Reported Past Surgical History: Section Additional Past Surgical History / Comment(s): [place] tooth extraction Past Anesthesia/Blood Transfusion Reactions: No Reported Reaction Additional Past Anesthesia/Blood Transfusion Reaction / Comment(s): no anesthesia or blood before Past Psychological History: No Psychological Hx Reported Smoking Status: Never smoker Past Alcohol Use History: None Reported Past Drug Use History: None Reported - Past Family History Father Family Medical History: Asthma Mother Family Medical History: No Reported History General Exam General appearance: alert, in no apparent distress Head exam: Present: atraumatic, normocephalic, normal inspection Eye exam: Present: normal appearance, PERRL, EOMI. Absent: scleral icterus, conjunctival injection ENT exam: Present: mucous membranes moist, TM's normal bilaterally, other (There is mild injection of the pharynx) Neck exam: Present: normal inspection, full ROM. Absent: tenderness, meningismus, lymphadenopathy Respiratory exam: Present: normal lung sounds bilaterally. Absent: respiratory distress, wheezes, rales, rhonchi, stridor Cardiovascular Exam: Present: regular rate, normal rhythm, normal heart sounds. Absent: systolic murmur, diastolic murmur, rubs, gallop GI/Abdominal exam: Present: soft. Absent: distended, tenderness, guarding, rebound, mass Extremities exam: Present: normal inspection Back exam: Present: normal inspection. Absent: CVA tenderness (R), CVA tenderness (L) Neurological exam: Present: alert Skin exam: Present: warm, dry, intact, normal color. Absent: rash Course Vital Signs 03/30/21 03/30/21 03:13 06:08 Temperature 97.9 F Pulse Rate 97 91 Respiratory 20 20 Rate Blood Pressure 144/95 120/91 O2 Sat by Pulse 98 98 Oximetry Disposition Clinical Impression: Allergic reaction due to antibacterial drug Disposition: HOME SELF-CARE Condition: Good Instructions (If sedation given, give patient instructions): General Allergic Reaction (ED) Is patient prescribed a controlled substance at d/c from ED?: No Referrals: Hyacinth Montero MD [Primary Care Provider] - 1-2 days
[2021-03-30 06:11] VITALS: BP 120/91; PULSE 91
== END 2021-03-30 06:12 | disposition home or self-care (01) ==
LOC: EC 03:10
DX: L29.9 Pruritus, unspecified (principal); T50.905A Adverse effect of unspecified drugs, medicaments and biological substances, initial encounter; J45.909 Unspecified asthma, uncomplicated; Z79.51 Long term (current) use of inhaled steroids; Z79.52 Long term (current) use of systemic steroids; Z88.0 Allergy status to penicillin; Z88.1 Allergy status to other antibiotic agents; Z79.899 Other long term (current) drug therapy
CPT/HCPCS: 99283; J1200

== ENCOUNTER 2021-04-09 17:57 | Emergency (ER) | payer OTHER ==
[2021-04-09] MEDS ORDERED: methylPREDNISolone SOD SUCCI 125 MG/2 ML VIAL IV STA (18:46)
[2021-04-09] MEDS ORDERED: ALBUTEROL NEBULIZED 2.5 MG/3 ML INHALATION STA (18:46)
[2021-04-09] MEDS ORDERED: IPRATROPIUM 0.5 MG/2.5 ML NEBU INHALATION STA (18:47)
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
[2021-04-09 19:30] LABS: Amphetamine Screen,Urine Not Detected (NotDetected); Barbiturate Screen,Urine Not Detected (NotDetected); Benzodiazepines Screen,Urine Not Detected (NotDetected); Cocaine Screen,Urine Not Detected (NotDetected); Methadone Screen, Urine Not Detected (NotDetected); Opiate Screen,Urine Not Detected (NotDetected); Oxycodone Screen, Urine Not Detected (NotDetected); Phencyclidine Screen,Urine Not Detected (NotDetected); Tricyclic Antidepressant,Urine Not Detected (NotDetected); Urn Cannabinoid Scrn Detected (NotDetected)
[2021-04-09 20:16] VITALS: BP 139/94; PULSE 99; RESP 20; TEMP 98.4
== END 2021-04-09 20:16 | disposition home or self-care (01) ==
LOC: EC 17:57
DX: O99.511 Diseases of the respiratory system complicating pregnancy, first trimester (principal); J45.901 Unspecified asthma with (acute) exacerbation; F12.90 Cannabis use, unspecified, uncomplicated; Z3A.08 8 weeks gestation of pregnancy
CPT/HCPCS: 99285; 96374; 94640; 82375; 80306; J2930; 93005

== ENCOUNTER 2021-04-20 09:10 | Emergency (ER) | payer OTHER ==
[2021-04-20 10:39] VITALS: TEMP 98.8
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
--- NOTE | 2021-04-20 11:24 | XR ---
EXAMINATION TYPE: XR wrist complete LT DATE OF EXAM: 04/20/2021 CLINICAL HISTORY: pain TECHNIQUE: Frontal, lateral and oblique images of the left wrist are obtained. COMPARISON: None. FINDINGS: There is no acute fracture/dislocation evident. The joint spaces appear within normal cannon its. The overlying soft tissue appears unremarkable. IMPRESSION: There is no acute fracture or dislocation seen. ICD 10 NO FRACTURE, INITIAL EVALUATION
[2021-04-20 11:46] LABS: Amorphous Sediment,Urine Few /hpf; Appearance,Urine Cloudy (Clear); Bilirubin,Urine Negative (Negative); Blood,Urine Negative (Negative); Color,Urine Yellow; Glucose,Urine (UA) Negative (Negative); Ketones,Urine Negative (Negative); Leukocyte Esterase,Urine Negative (Negative); Mucus,Urine Few /hpf; Nitrite,Urine Negative (Negative); PH, Urine 7.5 (5.0-8.0); Protein,Urine Negative (Negative); Specific Gravity,Urine 1.019 (1.001-1.035); Squamous Epithelial Cell,Urine 1 /hpf (0-4); Urobilinogen,Urine <2.0 mg/dL (<2.0); WBC,Urine 2 /hpf (0-5)
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
--- NOTE | 2021-04-20 12:45 | XR ---
EXAMINATION TYPE: XR chest 2V DATE OF EXAM: 04/20/2021 COMPARISON: March 28, 2021 HISTORY: Chest pain TECHNIQUE: Frontal and lateral views of the chest are obtained. FINDINGS: There is no focal air space opacity. No evidence for pneumothorax. No pleural effusion. The cardiac silhouette size is within normal limits. The osseous structures are grossly intact. IMPRESSION: 1. No acute cardiopulmonary process.
--- NOTE | 2021-04-20 12:46 | XR ---
EXAMINATION TYPE: XR lumbar spine 2 or 3V DATE OF EXAM: 04/20/2021 CLINICAL HISTORY: pain TECHNIQUE: Two views of the lumbar spine are submitted. COMPARISON: None. FINDINGS: There are 5 lumbar type vertebral bodies identified. The lumbar spine shows satisfactory alignment w ithout evidence of acute fracture or dislocation. Vertebral body heights are within normal limits. Disc spaces are within normal limits. The overlying soft tissue appears unremarkable. IMPRESSION: No acute fracture or dislocation is seen in the lumbar spine. ICD 10 NO FRACTURE, INITIAL EVALUATION
[2021-04-20 13:24] VITALS: BP 144/79; PULSE 78; RESP 20
== END 2021-04-20 13:24 | disposition home or self-care (01) ==
LOC: EC 09:10
DX: O9A.211 Injury, poisoning and certain other consequences of external causes complicating pregnancy, first trimester (principal); M54.5 Low back pain; M25.551 Pain in right hip; O99.511 Diseases of the respiratory system complicating pregnancy, first trimester; J45.909 Unspecified asthma, uncomplicated; Z79.52 Long term (current) use of systemic steroids; Z79.51 Long term (current) use of inhaled steroids; Z3A.01 Less than 8 weeks gestation of pregnancy; V43.52XA Car driver injured in collision with other type car in traffic accident, initial encounter; Y92.410 Unspecified street and highway as the place of occurrence of the external cause
CPT/HCPCS: 71046; 72100; 76801; 81001; 99284

== ENCOUNTER → 2021-07-16 | Outpatient (CLI) | payer OTHER ==
--- NOTE | 2021-07-16 11:16 | US ---
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 Approximately 22w2d GA; patient presents for foll ow-up ultrasound to assess for malformation of placenta. EXAM PERFORMED: Transabdominal (TA) SURVEY PLACENTA: Anterior placenta; prominent placental lakes seen. PREVIA: No Previa Ultrasound evidence of abruption? No PRESENTATION: Vertex HEART RATE: 155 bpm RHYTHM: Normal IMPRESSION: 1. Single intrauterine gestation estimated at 22 weeks 2 days gestation. Cardiac activity measures 15 5 bpm. 2. There are couple of prominent maternal lakes within the placenta.
== END | disposition home or self-care (01) ==
LOC: RADUSWWP 10:03
PROVIDERS: ATTEND Obstetrics & Gynecology
DX: O43.192 Other malformation of placenta, second trimester (principal); Z3A.22 22 weeks gestation of pregnancy
CPT/HCPCS: 76815

== ENCOUNTER 2021-07-25 23:58 | Emergency (ER) | payer OTHER ==
[2021-07-26 00:05] VITALS: TEMP 98.1
[2021-07-26] MEDS ORDERED: SODIUM CHLORIDE 0.9% 1,000 ML IV STA (00:10)
[2021-07-26] MEDS ORDERED: ACETAMINOPHEN TAB 500 MG TAB PO STA (00:11)
--- NOTE | 2021-07-26 00:19 | ED ---
Weakness HPI - General Chief complaint: Headache Stated complaint: Headache, dizziness Time Seen by Provider: 07/26/21 00:06 Source: patient, RN notes reviewed, old records reviewed Mode of arrival: ambulatory Limitations: no limitations - History of Present Illness Initial comments: This is a 26-year-old female to the emergency department for evaluation of headache, not feeling well also complaining of dizziness lightheadedness or palpitations. Is excused her heart beating. Admits to likely some mild dehydration. No fevers. Patient does have hypertension and currently does have hypertension involving . Patient denying any current chest pain or shortness of breath. No lightheadedness or dizziness. No abdominal pain or bleeding MD Complaint: generalized weakness, lack of energy -: days(s) Location: generalized Severity: moderate Severity scale (1-10): 6 Quality: aching Consistency: intermittent Improves with: none Worsens with: evening Context: recent illness, history of similar Associated Symptoms: headaches, loss of appetite, nausea/vomiting - Related Data Home Medications Medication Instructions Recorded Confirmed Budesonide [Pulmicort] 0.25 mg INHALATION RT-BID 04/06/20 08/02/21 Albuterol Nebulized [Ventolin 2.5 mg INHALATION RT-Q6H 03/10/21 08/02/21 Nebulized] Pnv,Calcium 72/Iron/Folic Acid 1 tab PO DAILY 03/27/21 08/02/21 [ Plus Tablet] Previous Rx's Medication Instructions Recorded Albuterol Inhaler [Ventolin Hfa 2 puff INHALATION RT-QID PRN #1 12/02/19 Inhaler] inhaler Allergies Allergy/AdvReac Type Severity Reaction Status Date / Time amoxicillin [Amoxicillin] Allergy Anaphylaxis Verified 07/26/21 00:05 cefuroxime Allergy Rash/Hives Verified 07/26/21 00:05 Review of Systems ROS Statement: Those systems with pertinent positive or pertinent negative responses have been documented in the HPI. ROS Other: All systems not noted in ROS Statement are negative. Past Medical History Past Medical History: Asthma Additional Past Medical History / Comment(s): Chronic asthma, lung collapse (April 2019), preclampsia History of Any Multi-Drug Resistant Organisms: None Reported Past Surgical History: Section Additional Past Surgical History / Comment(s): [place] tooth extraction Past Anesthesia/Blood Transfusion Reactions: No Reported Reaction Additional Past Anesthesia/Blood Transfusion Reaction / Comment(s): no anesthesia or blood before Past Psychological History: No Psychological Hx Reported Smoking Status: Never smoker Past Alcohol Use History: None Reported Past Drug Use History: None Reported - Past Family History Father Family Medical History: Asthma Mother Family Medical History: No Reported History General Exam Limitations: no limitations General appearance: alert, in no apparent distress, anxious Head exam: Present: atraumatic, normocephalic, normal inspection Eye exam: Present: normal appearance, PERRL, EOMI. Absent: scleral icterus, conjunctival injection, periorbital swelling ENT exam: Present: normal exam, mucous membranes dry Neck exam: Present: normal inspection. Absent: tenderness, meningismus, lymphadenopathy Respiratory exam: Present: normal lung sounds bilaterally. Absent: respiratory distress, wheezes, rales, rhonchi, stridor Cardiovascular Exam: Present: normal rhythm, tachycardia, normal heart sounds. Absent: systolic murmur, diastolic murmur, rubs, gallop, clicks GI/Abdominal exam: Present: soft, normal bowel sounds. Absent: distended, tenderness, guarding, rebound, rigid Extremities exam: Present: normal inspection, full ROM, normal capillary refill. Absent: tenderness, pedal edema, joint swelling, calf tenderness Back exam: Present: normal inspection Neurological exam: Present: alert, oriented X3, CN II-XII intact Psychiatric exam: Present: normal affect, normal mood Skin exam: Present: warm, dry, intact, normal color. Absent: rash Course Vital Signs 07/26/21 07/26/21 00:02 01:05 Temperature 98.1 F Pulse Rate 133 H 99 Respiratory 22 14 Rate Blood Pressure 134/81 111/74 O2 Sat by Pulse 99 99 Oximetry - Reevaluation(s) Reevaluation #1: Medical record is reviewed Symptoms improved here in the ER Patient informed results and questions answered EKG Findings - EKG Comments: EKG Findings:: EKG is sinus tachycardia 116. 176 QRS 84 QTc 433 Medical Decision Making - Medical Decision Making 26-year-old female with hypertension as well as currently and with migraine headache. Symptoms are significantly improved here in the ER she feels well now can be discharged home - Lab Data Result diagrams: 07/26/21 00:26 07/26/21 00:26 Lab Results 07/26/21 07/26/21 07/26/21 Range/Units 00:26 00:26 00:26 WBC 10.4 (3.8-10.6) k/uL RBC 3.96 (3.80-5.40) m/uL Hgb 12.6 (11.4-16.0) gm/dL Hct 38.8 (34.0-46.0) % MCV 97.9 (80.0-100.0) fL MCH 31.7 (25.0-35.0) pg MCHC 32.4 (31.0-37.0) g/dL RDW 13.0 (11.5-15.5) % Plt Count 188 (150-450) k/uL MPV 8.1 Neutrophils % 70 % Lymphocytes % 20 % Monocytes % 6 % Eosinophils % 2 % Basophils % 0 % Neutrophils # 7.2 (1.3-7.7) k/uL Lymphocytes # 2.1 (1.0-4.8) k/uL Monocytes # 0.7 (0-1.0) k/uL Eosinophils # 0.3 (0-0.7) k/uL Basophils # 0.0 (0-0.2) k/uL PT 9.5 (9.0-12.0) sec INR 0.9 (<1.2) APTT 22.9 (22.0-30.0) sec D-Dimer 0.65 H (<0.60) mg/L FEU Sodium 134 L (137-145) mmol/L Potassium 3.7 (3.5-5.1) mmol/L Chloride 107 (98-107) mmol/L Carbon Dioxide 20 L (22-30) mmol/L Anion Gap 7 mmol/L BUN 5 L (7-17) mg/dL Creatinine 0.55 (0.52-1.04) mg/dL Est GFR (CKD-EPI)AfAm >90 (>60 ml/min/1.73 sqM) Est GFR (CKD-EPI)NonAf >90 (>60 ml/min/1.73 sqM) Glucose 96 (74-99) mg/dL Plasma Lactic Acid Ariel (0.7-2.0) mmol/L Uric Acid 2.5 L (3.7-7.4) mg/dL Calcium 9.2 (8.4-10.2) mg/dL Phosphorus 2.9 (2.5-4.5) mg/dL Magnesium 1.8 (1.6-2.3) mg/dL Total Bilirubin 0.3 (0.2-1.3) mg/dL AST 21 (14-36) U/L ALT 13 (4-34) U/L Alkaline Phosphatase 80 (38-126) U/L Lactate Dehydrogenase 459 (313-618) U/L Troponin I (0.000-0.034) ng/mL C-Reactive Protein <0.5 (<1.0) mg/dL NT-Pro-B Natriuret Pep pg/mL Total Protein 7.1 (6.3-8.2) g/dL Albumin 3.8 (3.5-5.0) g/dL Total Bile Acids (0-19) umol/L Urine Color Urine Appearance (Clear) Urine pH (5.0-8.0) Ur Specific [place] (1.001-1.035) Urine Protein (Negative) Urine Glucose (UA) (Negative) Urine Ketones (Negative) Urine Blood (Negative) Urine Nitrite (Negative) Urine Bilirubin (Negative) Urine Urobilinogen (<2.0) mg/dL Ur Leukocyte Esterase (Negative) Urine RBC (0-5) /hpf Urine WBC (0-5) /hpf Ur Squamous Epith Cells (0-4) /hpf Urine Mucus (None) /hpf 07/26/21 07/26/21 07/26/21 Range/Units 00:26 00:26 00:26 WBC (3.8-10.6) k/uL RBC (3.80-5.40) m/uL Hgb (11.4-16.0) gm/dL Hct (34.0-46.0) % MCV (80.0-100.0) fL MCH (25.0-35.0) pg MCHC (31.0-37.0) g/dL RDW (11.5-15.5) % Plt Count (150-450) k/uL MPV Neutrophils % % Lymphocytes % % Monocytes % % Eosinophils % % Basophils % % Neutrophils # (1.3-7.7) k/uL Lymphocytes # (1.0-4.8) k/uL Monocytes # (0-1.0) k/uL Eosinophils # (0-0.7) k/uL Basophils # (0-0.2) k/uL PT (9.0-12.0) sec INR (<1.2) APTT (22.0-30.0) sec D-Dimer (<0.60) mg/L FEU Sodium (137-145) mmol/L Potassium (3.5-5.1) mmol/L Chloride (98-107) mmol/L Carbon Dioxide (22-30) mmol/L Anion Gap mmol/L BUN (7-17) mg/dL Creatinine (0.52-1.04) mg/dL Est GFR (CKD-EPI)AfAm (>60 ml/min/1.73 sqM) Est GFR (CKD-EPI)NonAf (>60 ml/min/1.73 sqM) Glucose (74-99) mg/dL Plasma Lactic Acid [place] 1.3 (0.7-2.0) mmol/L Uric Acid (3.7-7.4) mg/dL Calcium (8.4-10.2) mg/dL Phosphorus (2.5-4.5) mg/dL Magnesium (1.6-2.3) mg/dL Total Bilirubin (0.2-1.3) mg/dL AST (14-36) U/L ALT (4-34) U/L Alkaline Phosphatase (38-126) U/L Lactate Dehydrogenase (313-618) U/L Troponin I <0.012 (0.000-0.034) ng/mL C-Reactive Protein (<1.0) mg/dL NT-Pro-B Natriuret Pep 33 pg/mL Total Protein (6.3-8.2) g/dL Albumin (3.5-5.0) g/dL Total Bile Acids (0-19) umol/L Urine Color Urine Appearance (Clear) Urine pH (5.0-8.0) Ur Specific [place] (1.001-1.035) Urine Protein (Negative) Urine Glucose (UA) (Negative) Urine Ketones (Negative) Urine Blood (Negative) Urine Nitrite (Negative) Urine Bilirubin (Negative) Urine Urobilinogen (<2.0) mg/dL Ur Leukocyte Esterase (Negative) Urine RBC (0-5) /hpf Urine WBC (0-5) /hpf Ur Squamous Epith Cells (0-4) /hpf Urine Mucus (None) /hpf 07/26/21 07/26/21 Range/Units 00:26 00:33 WBC (3.8-10.6) k/uL RBC (3.80-5.40) m/uL Hgb (11.4-16.0) gm/dL Hct (34.0-46.0) % MCV (80.0-100.0) fL MCH (25.0-35.0) pg MCHC (31.0-37.0) g/dL RDW (11.5-15.5) % Plt Count (150-450) k/uL MPV Neutrophils % % Lymphocytes % % Monocytes % % Eosinophils % % Basophils % % Neutrophils # (1.3-7.7) k/uL Lymphocytes # (1.0-4.8) k/uL Monocytes # (0-1.0) k/uL Eosinophils # (0-0.7) k/uL Basophils # (0-0.2) k/uL PT (9.0-12.0) sec INR (<1.2) APTT (22.0-30.0) sec D-Dimer (<0.60) mg/L FEU Sodium (137-145) mmol/L Potassium (3.5-5.1) mmol/L Chloride (98-107) mmol/L Carbon Dioxide (22-30) mmol/L Anion Gap mmol/L BUN (7-17) mg/dL Creatinine (0.52-1.04) mg/dL Est GFR (CKD-EPI)AfAm (>60 ml/min/1.73 sqM) Est GFR (CKD-EPI)NonAf (>60 ml/min/1.73 sqM) Glucose (74-99) mg/dL Plasma Lactic Acid Ariel (0.7-2.0) mmol/L Uric Acid (3.7-7.4) mg/dL Calcium (8.4-10.2) mg/dL Phosphorus (2.5-4.5) mg/dL Magnesium (1.6-2.3) mg/dL Total Bilirubin (0.2-1.3) mg/dL AST (14-36) U/L ALT (4-34) U/L Alkaline Phosphatase (38-126) U/L Lactate Dehydrogenase (313-618) U/L Troponin I (0.000-0.034) ng/mL C-Reactive Protein (<1.0) mg/dL NT-Pro-B Natriuret Pep pg/mL Total Protein (6.3-8.2) g/dL Albumin (3.5-5.0) g/dL Total Bile Acids 14 (0-19) umol/L Urine Color Light Yellow Urine Appearance Clear (Clear) Urine pH 7.0 (5.0-8.0) Ur Specific [place] 1.005 (1.001-1.035) Urine Protein Negative (Negative) Urine Glucose (UA) 1+ H (Negative) Urine Ketones Negative (Negative) Urine Blood Negative (Negative) Urine Nitrite Negative (Negative) Urine Bilirubin Negative (Negative) Urine Urobilinogen <2.0 (<2.0) mg/dL Ur Leukocyte Esterase Trace H (Negative) Urine RBC 1 (0-5) /hpf Urine WBC 1 (0-5) /hpf Ur Squamous Epith Cells 1 (0-4) /hpf Urine Mucus Rare H (None) /hpf Disposition Clinical Impression: Hypertension, Migraine headache, Hypertension during , Tachycardia Disposition: HOME SELF-CARE Condition: Good Instructions (If sedation given, give patient instructions): Acute Headache (ED) Is patient prescribed a controlled substance at d/c from ED?: No Referrals: Hyacinth Montero MD [Primary Care Provider] - 1-2 days
[2021-07-26 00:53] LABS: Appearance,Urine Clear (Clear); Bilirubin,Urine Negative (Negative); Blood,Urine Negative (Negative); Color,Urine Light Yellow; Glucose,Urine (UA) 1+ (Negative); Ketones,Urine Negative (Negative); Leukocyte Esterase,Urine Trace (Negative); Mucus,Urine Rare /hpf; Nitrite,Urine Negative (Negative); Protein,Urine Negative (Negative); RBC,Urine 1 /hpf (0-5); Specific Gravity,Urine 1.005 (1.001-1.035); Squamous Epithelial Cell,Urine 1 /hpf (0-4); Urobilinogen,Urine <2.0 mg/dL (<2.0); WBC,Urine 1 /hpf (0-5)
[2021-07-26 00:54] LABS: Basophils % (A) 0 %; Eosinophils # (A) 0.3 k/uL (0-0.7); Eosinophils % (A) 2 %; HCT 38.8 % (34.0-46.0); HGB 12.6 gm/dL (11.4-16.0); Lymphocytes # (A) 2.1 k/uL (1.0-4.8); Lymphocytes % (A) 20 %; MCH 31.7 pg (25.0-35.0); MCHC 32.4 g/dL (31.0-37.0); MCV 97.9 fL (80.0-100.0); Mean Platelet Volume 8.1; Monocytes # (A) 0.7 k/uL (0-1.0); Monocytes % (A) 6 %; Neutrophils # (A) 7.2 k/uL (1.3-7.7); Neutrophils % (A) 70 %; Platelet Count 188 k/uL (150-450); RBC 3.96 m/uL (3.80-5.40); WBC 10.4 k/uL (3.8-10.6)
[2021-07-26 01:08] LABS: ALT 13 U/L (4-34); AST 21 U/L (14-36); African American GFR (CKD) >90 (>60 ml/min/1.73 sqM); Albumin 3.8 g/dL (3.5-5.0); Alkaline Phosphatase 80 U/L (38-126); Anion Gap 7 mmol/L; Blood Urea Nitrogen 5 mg/dL (7-17); C Reactive Protein <0.5 mg/dL (<1.0); Calcium 9.2 mg/dL (8.4-10.2); Carbon Dioxide 20 mmol/L (22-30); Chloride 107 mmol/L (98-107); Glucose 96 mg/dL (74-99); LDH 459 U/L (313-618); Magnesium 1.8 mg/dL (1.6-2.3); Non-African American GFR(CKD) >90 (>60 ml/min/1.73 sqM); Phosphorus 2.9 mg/dL (2.5-4.5); Potassium 3.7 mmol/L (3.5-5.1); Sodium 134 mmol/L (137-145); Total Bilirubin 0.3 mg/dL (0.2-1.3); Total Protein 7.1 g/dL (6.3-8.2); Uric Acid 2.5 mg/dL (3.7-7.4)
[2021-07-26 01:14] LABS: INR 0.9 (<1.2); Partial Thromboplastin Time 22.9 sec (22.0-30.0); Prothrombin Time 9.5 sec (9.0-12.0)
[2021-07-26 01:36] VITALS: BP 111/74; PULSE 99; RESP 14
== END 2021-07-26 02:50 | disposition home or self-care (01) ==
LOC: EC 23:58
DX: G43.909 Migraine, unspecified, not intractable, without status migrainosus (principal); I10 Essential (primary) hypertension; J45.909 Unspecified asthma, uncomplicated; Z79.51 Long term (current) use of inhaled steroids; Z79.899 Other long term (current) drug therapy
CPT/HCPCS: 36415; 80053; 81001; 82239; 83605; 83615; 83735; 83880; 84100; 84484; 84550; 85025; 85379; 85610; 85730; 86140; 93005; 99285

== ENCOUNTER 2021-08-02 03:21 | Outpatient (CLI) | payer OTHER ==
[2021-08-02 03:59] LABS: Appearance,Urine Cloudy (Clear); Bacteria,Urine Rare /hpf; Bilirubin,Urine Negative (Negative); Blood,Urine Negative (Negative); Color,Urine Light Yellow; Glucose,Urine (UA) Negative (Negative); Ketones,Urine Negative (Negative); Leukocyte Esterase,Urine Large (Negative); Nitrite,Urine Negative (Negative); Protein,Urine Negative (Negative); RBC,Urine 1 /hpf (0-5); Specific Gravity,Urine 1.009 (1.001-1.035); Squamous Epithelial Cell,Urine 2 /hpf (0-4); Urobilinogen,Urine <2.0 mg/dL (<2.0); WBC,Urine 11 /hpf (0-5)
[2021-08-02 04:59] VITALS: BP 140/87; PULSE 90; TEMP 98.3
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
[2021-08-02 08:51] VITALS: RESP 18
== END 2021-08-02 08:35 | disposition home or self-care (01) ==
LOC: FBPOP 03:21
PROVIDERS: ATTEND Obstetrics & Gynecology
DX: O26.892 Other specified pregnancy related conditions, second trimester (principal); R10.84 Generalized abdominal pain; R25.2 Cramp and spasm; Z3A.25 25 weeks gestation of pregnancy; Z88.1 Allergy status to other antibiotic agents
CPT/HCPCS: 81001; 87086; 76805; G0463; 99213

== ENCOUNTER → 2021-08-31 | Outpatient (CLI) | payer OTHER | END | disposition home or self-care (01) | LOC: LABWHC1 13:08 | PROVIDERS: ATTEND Midwife | DX: Z33.1 Pregnant state, incidental (principal) | CPT/HCPCS: 36415; 82950 ==

== ENCOUNTER 2021-09-06 18:17 | Emergency (ER) | payer OTHER ==
[2021-09-06 18:23] VITALS: TEMP 98.3
[2021-09-06] MEDS ORDERED: IPRATROPIUM-ALBUTEROL 3 ML NEB INHALATION STA (18:54)
[2021-09-06] MEDS ORDERED: predniSONE 20 MG TAB PO STA (18:55)
[2021-09-06] MEDS ORDERED: methylPREDNISolone SOD SUCCI 125 MG/2 ML VIAL IV STA (19:00)
--- NOTE | 2021-09-06 19:32 | XR ---
EXAMINATION TYPE: XR chest 2V DATE OF EXAM: 09/06/2021 COMPARISON: 04/20/2021 HISTORY: Short of breath TECHNIQUE: FINDINGS: Heart and mediastinum are normal. Lungs are clear. Diaphragm is normal. Bony thorax appears normal. IMPRESSION: Normal chest. No change.
[2021-09-06 20:00] LABS: Basophils % (A) 0 %; Eosinophils # (A) 0.3 k/uL (0-0.7); Eosinophils % (A) 4 %; HCT 38.8 % (34.0-46.0); Lymphocytes # (A) 1.2 k/uL (1.0-4.8); Lymphocytes % (A) 17 %; MCH 32.3 pg (25.0-35.0); MCHC 33.5 g/dL (31.0-37.0); MCV 96.4 fL (80.0-100.0); Mean Platelet Volume 7.9; Monocytes # (A) 0.5 k/uL (0-1.0); Monocytes % (A) 7 %; Neutrophils # (A) 4.8 k/uL (1.3-7.7); Neutrophils % (A) 69 %; Platelet Count 182 k/uL (150-450); RBC 4.03 m/uL (3.80-5.40); RDW 13.6 % (11.5-15.5); WBC 6.9 k/uL (3.8-10.6)
[2021-09-06 20:01] LABS: ALT 14 U/L (4-34); AST 24 U/L (14-36); African American GFR (CKD) >90 (>60 ml/min/1.73 sqM); Albumin 3.7 g/dL (3.5-5.0); Alkaline Phosphatase 129 U/L (38-126); Anion Gap 5 mmol/L; Blood Urea Nitrogen 4 mg/dL (7-17); Calcium 9.2 mg/dL (8.4-10.2); Carbon Dioxide 25 mmol/L (22-30); Chloride 104 mmol/L (98-107); Glucose 79 mg/dL (74-99); Magnesium 1.8 mg/dL (1.6-2.3); Non-African American GFR(CKD) >90 (>60 ml/min/1.73 sqM); Potassium 3.9 mmol/L (3.5-5.1); Sodium 134 mmol/L (137-145); Total Bilirubin 0.5 mg/dL (0.2-1.3)
[2021-09-06 20:18] LABS: INR 0.9 (<1.2); Partial Thromboplastin Time 24.2 sec (22.0-30.0); Prothrombin Time 9.7 sec (9.0-12.0)
--- NOTE | 2021-09-06 20:34 | ED ---
SOB HPI - General Source: patient Mode of arrival: ambulatory Limitations: no limitations <Ada Chan - Last Filed: 09/06/21 22:22> <Sarah Riojas - Last Filed: 09/07/21 01:17> - General Chief Complaint: Shortness of Breath Stated Complaint: ANNE Time Seen by Provider: 09/06/21 18:30 - History of Present Illness Initial Comments: Patient is a 26-year-old female at 7 months [facility] a chief complaint of shortness of breath. Patient has a history of asthma that she typically uses her albuterol inhaler for. She reports that she normally has to use the inhaler 5-6 times a day during . For the past 2 days patient's shortness of breath has continued despite albuterol inhaler use. Patient has used her albuterol nebulizer for 2 days with double dosing and still feels very short of breath. She has associated dry cough. Patient denies other concerns at this time including fever, chills, chest pain, palpitations, abdominal pain, nausea, vomiting, burning with urination, vaginal bleeding, and leg swelling/pain. Patient states that she has a history of pneumothorax from asthma but denies history of DVT or pulmonary embolism. (Ada Chan) - Related Data Home Medications Medication Instructions Recorded Confirmed Budesonide [Pulmicort] 0.25 mg INHALATION RT-BID 04/06/20 08/02/21 Albuterol Nebulized [Ventolin 2.5 mg INHALATION RT-Q6H 03/10/21 08/02/21 Nebulized] Pnv,Calcium 72/Iron/Folic Acid 1 tab PO DAILY 03/27/21 08/02/21 [ Plus Tablet] Previous Rx's Medication Instructions Recorded Albuterol Inhaler [Ventolin Hfa 2 puff INHALATION RT-QID PRN #1 12/02/19 Inhaler] inhaler Allergies Allergy/AdvReac Type Severity Reaction Status Date / Time amoxicillin [Amoxicillin] Allergy Anaphylaxis Verified 07/26/21 00:05 cefuroxime Allergy Rash/Hives Verified 07/26/21 00:05 Review of Systems ROS Other: All systems not noted in ROS Statement are negative. <Ada Chan - Last Filed: 09/06/21 22:22> ROS Other: All systems not noted in ROS Statement are negative. <Sarah Riojas Dane - Last Filed: 09/07/21 01:17> ROS Statement: Those systems with pertinent positive or pertinent negative responses have been documented in the HPI. Past Medical History Past Medical History: Asthma Additional Past Medical History / Comment(s): Chronic asthma, lung collapse (April 2019), preclampsia History of Any Multi-Drug Resistant Organisms: None Reported Past Surgical History: Section Additional Past Surgical History / Comment(s): [place] tooth extraction Past Anesthesia/Blood Transfusion Reactions: No Reported Reaction Additional Past Anesthesia/Blood Transfusion Reaction / Comment(s): no anesthesia or blood before Past Psychological History: No Psychological Hx Reported Smoking Status: Never smoker Past Alcohol Use History: None Reported Past Drug Use History: None Reported - Past Family History Father Family Medical History: Asthma Mother Family Medical History: No Reported History <Ada Chan - Last Filed: 09/06/21 22:22> General Exam Limitations: no limitations General appearance: alert, in no apparent distress Head exam: Present: atraumatic, normocephalic, normal inspection Respiratory exam: Present: wheezes (Mild right-sided). Absent: normal lung sounds bilaterally, respiratory distress, rales, rhonchi, accessory muscle use, decreased breath sounds, prolonged expiratory Cardiovascular Exam: Present: normal rhythm, tachycardia Extremities exam: Present: normal inspection, other (negative karolina sign bilaterally). Absent: calf tenderness Neurological exam: Present: alert, oriented X3, CN II-XII intact Psychiatric exam: Present: normal affect, normal mood Skin exam: Present: warm, dry, intact, normal color. Absent: rash <Ada Chan - Last Filed: 09/06/21 22:22> Course Vital Signs 09/06/21 09/06/21 09/06/21 18:21 18:32 20:41 Temperature 98.3 F Pulse Rate 108 H 109 H 92 Respiratory 26 H 20 Rate Blood Pressure 155/92 144/91 O2 Sat by Pulse 100 100 Oximetry 09/06/21 09/06/21 09/06/21 20:50 21:49 22:02 Temperature Pulse Rate 92 108 H 106 H Respiratory Rate Blood Pressure O2 Sat by Pulse Oximetry 09/06/21 09/06/21 22:18 23:00 Temperature Pulse Rate 134 H 109 H Respiratory 20 22 Rate Blood Pressure 151/95 138/95 O2 Sat by Pulse 98 100 Oximetry Medical Decision Making - Lab Data Result diagrams: 09/06/21 19:44 09/06/21 19:44 <Ada Chan - Last Filed: 09/06/21 22:22> - Lab Data Result diagrams: 09/06/21 19:44 09/06/21 19:44 <Sarah Riojas - Last Filed: 09/07/21 01:17> - Medical Decision Making This is a 26-year-old at 7 months who presents with increased shortness of breath refractory to albuterol inhaler and nebulizer. Thorough history and examination were performed. Patient is in no obvious respiratory distress. She is tachycardic at 108 and tachypneic at 26. There is mild ride sided wheezing during lung auscultation. There is no pain or swelling of the bilateral lower extremities. Patient has no white count. Other laboratory studies are unremarkable. Chest x-ray reveals no acute cardiopulmonary process. DuoNeb nebulizer treatment and IV steroids were given. On reeavaluation respirations are within normal limits at 20. Tachycardia continues at 106. Patient reports no improvement of shortness of breath. She has concern that baby is not doing well. Albuterol nebulizer treatment and heart tones were ordered. FHT at 160. On reevaluation patient reports no change of shortness of breath. Patient is tachycardic at 132. Lungs are clear to auscultation bilaterally. Due to persistent shortness of breath despite multiple breathing treatments and IV steroids, tachycardia, tachypnea, normal lung sounds, and absence of abnormalities on chest x-ray, there is concern for pulmonary embolism. Risks versus benefits of CT angiogram of the chest were discussed with patient. Patient is agreeable to CT angiogram of the chest which was obtained. (Ada Chan) I personally saw and evaluated the patient, discussed pros and cons of CT scan alyssia in the setting of , patient was agreeable. Computed tomography scan had no signs of pulmonary embolism. Patient did get significantly tachycardic after breathing treatments but this improved, heart rate ranging in the low 100s. Patient no hypoxia. She did report feeling better after interventions. Review the patient did have hypertension while in the emergency department, additional labs are ordered to rule out preeclampsia and all of those were within normal limits. Patient does report that she has a history of hypertension but is on medications and her OB is aware of this. Her hypertension is not related to . Patient's glucose was 150 here and she did have glucose urea, this was discussed with the patient, she underwent her glucose tolerance testing at her OB office last week but has not been given results, she will see her OB on Tuesday for follow-up. Patient was educated that she needs to discuss her hypertension and elevated glucose with her OB which she reports she will. Patient reports she is feeling much better she has good movement she is comfortable with plan for discharge home. (Sarah Riojas) - Lab Data Lab Results 09/06/21 09/06/21 09/06/21 Range/Units 19:44 19:44 19:44 WBC 6.9 (3.8-10.6) k/uL RBC 4.03 (3.80-5.40) m/uL Hgb 13.0 (11.4-16.0) gm/dL Hct 38.8 (34.0-46.0) % MCV 96.4 (80.0-100.0) fL MCH 32.3 (25.0-35.0) pg MCHC 33.5 (31.0-37.0) g/dL RDW 13.6 (11.5-15.5) % Plt Count 182 (150-450) k/uL MPV 7.9 Neutrophils % 69 % Lymphocytes % 17 % Monocytes % 7 % Eosinophils % 4 % Basophils % 0 % Neutrophils # 4.8 (1.3-7.7) k/uL Lymphocytes # 1.2 (1.0-4.8) k/uL Monocytes # 0.5 (0-1.0) k/uL Eosinophils # 0.3 (0-0.7) k/uL Basophils # 0.0 (0-0.2) k/uL PT 9.7 (9.0-12.0) sec INR 0.9 (<1.2) APTT 24.2 (22.0-30.0) sec Fibrinogen (200-500) mg/dL Sodium 134 L (137-145) mmol/L Potassium 3.9 (3.5-5.1) mmol/L Chloride 104 (98-107) mmol/L Carbon Dioxide 25 (22-30) mmol/L Anion Gap 5 mmol/L BUN 4 L (7-17) mg/dL Creatinine 0.47 L (0.52-1.04) mg/dL Est GFR (CKD-EPI)AfAm >90 (>60 ml/min/1.73 sqM) Est GFR (CKD-EPI)NonAf >90 (>60 ml/min/1.73 sqM) Glucose 79 (74-99) mg/dL Uric Acid 3.4 L (3.7-7.4) mg/dL Calcium 9.2 (8.4-10.2) mg/dL Magnesium 1.8 (1.6-2.3) mg/dL Total Bilirubin 0.5 (0.2-1.3) mg/dL AST 24 (14-36) U/L ALT 14 (4-34) U/L Alkaline Phosphatase 129 H (38-126) U/L Lactate Dehydrogenase 441 (313-618) U/L NT-Pro-B Natriuret Pep pg/mL Total Protein 7.0 (6.3-8.2) g/dL Albumin 3.7 (3.5-5.0) g/dL Urine Color Urine Appearance (Clear) Urine pH (5.0-8.0) Ur Specific [place] (1.001-1.035) Urine Protein (Negative) Urine Glucose (UA) (Negative) Urine Ketones (Negative) Urine Blood (Negative) Urine Nitrite (Negative) Urine Bilirubin (Negative) Urine Urobilinogen (<2.0) mg/dL Ur Leukocyte Esterase (Negative) Influenza Type A (PCR) (Not Detectd) Influenza Type B (PCR) (Not Detectd) RSV (PCR) (Not Detectd) SARS-CoV-2 (PCR) (Not Detectd) 09/06/21 09/06/21 09/06/21 Range/Units 19:44 21:14 23:08 WBC (3.8-10.6) k/uL RBC (3.80-5.40) m/uL Hgb (11.4-16.0) gm/dL Hct (34.0-46.0) % MCV (80.0-100.0) fL MCH (25.0-35.0) pg MCHC (31.0-37.0) g/dL RDW (11.5-15.5) % Plt Count (150-450) k/uL MPV Neutrophils % % Lymphocytes % % Monocytes % % Eosinophils % % Basophils % % Neutrophils # (1.3-7.7) k/uL Lymphocytes # (1.0-4.8) k/uL Monocytes # (0-1.0) k/uL Eosinophils # (0-0.7) k/uL Basophils # (0-0.2) k/uL PT (9.0-12.0) sec INR (<1.2) APTT (22.0-30.0) sec Fibrinogen (200-500) mg/dL Sodium (137-145) mmol/L Potassium (3.5-5.1) mmol/L Chloride (98-107) mmol/L Carbon Dioxide (22-30) mmol/L Anion Gap mmol/L BUN (7-17) mg/dL Creatinine (0.52-1.04) mg/dL Est GFR (CKD-EPI)AfAm (>60 ml/min/1.73 sqM) Est GFR (CKD-EPI)NonAf (>60 ml/min/1.73 sqM) Glucose (74-99) mg/dL Uric Acid (3.7-7.4) mg/dL Calcium (8.4-10.2) mg/dL Magnesium (1.6-2.3) mg/dL Total Bilirubin (0.2-1.3) mg/dL AST (14-36) U/L ALT (4-34) U/L Alkaline Phosphatase (38-126) U/L Lactate Dehydrogenase (313-618) U/L NT-Pro-B Natriuret Pep 21 pg/mL Total Protein (6.3-8.2) g/dL Albumin (3.5-5.0) g/dL Urine Color Light Yellow Urine Appearance Clear (Clear) Urine pH 8.0 (5.0-8.0) Ur Specific [place] >1.050 H (1.001-1.035) Urine Protein Negative (Negative) Urine Glucose (UA) 3+ H (Negative) Urine Ketones Negative (Negative) Urine Blood Negative (Negative) Urine Nitrite Negative (Negative) Urine Bilirubin Negative (Negative) Urine Urobilinogen <2.0 (<2.0) mg/dL Ur Leukocyte Esterase Negative (Negative) Influenza Type A (PCR) Not Detected (Not Detectd) Influenza Type B (PCR) Not Detected (Not Detectd) RSV (PCR) Not Detected (Not Detectd) SARS-CoV-2 (PCR) Not Detected (Not Detectd) 09/06/21 Range/Units 23:08 WBC (3.8-10.6) k/uL RBC (3.80-5.40) m/uL Hgb (11.4-16.0) gm/dL Hct (34.0-46.0) % MCV (80.0-100.0) fL MCH (25.0-35.0) pg MCHC (31.0-37.0) g/dL RDW (11.5-15.5) % Plt Count (150-450) k/uL MPV Neutrophils % % Lymphocytes % % Monocytes % % Eosinophils % % Basophils % % Neutrophils # (1.3-7.7) k/uL Lymphocytes # (1.0-4.8) k/uL Monocytes # (0-1.0) k/uL Eosinophils # (0-0.7) k/uL Basophils # (0-0.2) k/uL PT (9.0-12.0) sec INR (<1.2) APTT (22.0-30.0) sec Fibrinogen 437 (200-500) mg/dL Sodium (137-145) mmol/L Potassium (3.5-5.1) mmol/L Chloride (98-107) mmol/L Carbon Dioxide (22-30) mmol/L Anion Gap mmol/L BUN (7-17) mg/dL Creatinine (0.52-1.04) mg/dL Est GFR (CKD-EPI)AfAm (>60 ml/min/1.73 sqM) Est GFR (CKD-EPI)NonAf (>60 ml/min/1.73 sqM) Glucose (74-99) mg/dL Uric Acid (3.7-7.4) mg/dL Calcium (8.4-10.2) mg/dL Magnesium (1.6-2.3) mg/dL Total Bilirubin (0.2-1.3) mg/dL AST (14-36) U/L ALT (4-34) U/L Alkaline Phosphatase (38-126) U/L Lactate Dehydrogenase (313-618) U/L NT-Pro-B Natriuret Pep pg/mL Total Protein (6.3-8.2) g/dL Albumin (3.5-5.0) g/dL Urine Color Urine Appearance (Clear) Urine pH (5.0-8.0) Ur Specific [place] (1.001-1.035) Urine Protein (Negative) Urine Glucose (UA) (Negative) Urine Ketones (Negative) Urine Blood (Negative) Urine Nitrite (Negative) Urine Bilirubin (Negative) Urine Urobilinogen (<2.0) mg/dL Ur Leukocyte Esterase (Negative) Influenza Type A (PCR) (Not Detectd) Influenza Type B (PCR) (Not Detectd) RSV (PCR) (Not Detectd) SARS-CoV-2 (PCR) (Not Detectd) Disposition <Ada Chan - Last Filed: 09/06/21 22:22> Is patient prescribed a controlled substance at d/c from ED?: No <Sarah Riojas - Last Filed: 09/07/21 01:17> Clinical Impression: Asthma exacerbation, HTN (hypertension), Elevated glucose Disposition: HOME SELF-CARE Condition: Stable Additional Instructions: Follow up with Dr Gretel Flanagan Discuss with Dr Majano that your glucose was 150 and your blood pressures were elevated with normal blood work Referrals: Hyacinth Montero MD [Primary Care Provider] - 1-2 days
[2021-09-06] MEDS ORDERED: ALBUTEROL NEBULIZED 2.5 MG/3 ML INHALATION STA (21:15)
[2021-09-06 21:57] LABS: Influenza A Not Detected (Not Detectd); Influenza B Not Detected (Not Detectd)
--- NOTE | 2021-09-06 22:47 | CT ---
EXAMINATION TYPE: CT chest angio for PE DATE OF EXAM: 09/06/2021 COMPARISON: 12/01/2019 HISTORY: Refractory SOB, tachycardia. Pt hx asthma. Pt 30 weeks , advised of radiation risks and shielded. CT DLP: 266.7 mGycm Automated exposure control for dose reduction was used. CONTRAST: Performed with IV Contrast, patient injected with 100 mL of Isovue 370. Images obtained from the thoracic inlet to the diaphragm with IV contrast. There are 3-D postprocess images. The lungs are clear of infiltrate. There is no evidence of a pulmonary mass. There is no pleural effu abida. There is no pericardial effusion. Heart size is normal. There is no mediastinal adenopathy. The re are no hilar masses. There is normal contrast opacification of the pulmonary arteries. There are no filling defects. Thora cic spine is intact. There is no compression fracture. Sternum is intact. IMPRESSION: No evidence of pulmonary embolism. No evidence of acute lung disease. No change compared to old exam.
[2021-09-06] MEDS ORDERED: SODIUM CHLORIDE 0.9% 1,000 ML IV ONE (22:54)
[2021-09-06 23:29] LABS: LDH 441 U/L (313-618); Uric Acid 3.4 mg/dL (3.7-7.4)
[2021-09-07 00:04] LABS: Appearance,Urine Clear (Clear); Bilirubin,Urine Negative (Negative); Blood,Urine Negative (Negative); Color,Urine Light Yellow; Glucose,Urine (UA) 3+ (Negative); Ketones,Urine Negative (Negative); Leukocyte Esterase,Urine Negative (Negative); Nitrite,Urine Negative (Negative); Protein,Urine Negative (Negative); Urobilinogen,Urine <2.0 mg/dL (<2.0)
[2021-09-07 00:06] LABS: Specific Gravity,Urine >1.050 (1.001-1.035)
[2021-09-07 02:02] VITALS: BP 147/95; PULSE 72; RESP 16
== END 2021-09-07 01:38 | disposition home or self-care (01) ==
LOC: EC 18:17
DX: J45.901 Unspecified asthma with (acute) exacerbation (principal); O10.911 Unspecified pre-existing hypertension complicating pregnancy, first trimester; O99.511 Diseases of the respiratory system complicating pregnancy, first trimester; R73.9 Hyperglycemia, unspecified; Z3A.01 Less than 8 weeks gestation of pregnancy; Z20.822 Contact with and (suspected) exposure to COVID-19; Z88.1 Allergy status to other antibiotic agents; Z79.51 Long term (current) use of inhaled steroids
CPT/HCPCS: 36415; 94640 ×2; 83880; 80053; 83615; 83735; 84550; 85025; 85384; 85610; 85730; 87636; 71046; 71275; 96374; 96361; 99285; J2930; Q9967; 81003

== ENCOUNTER 2021-09-18 20:24 | Emergency (ER) | payer OTHER ==
[2021-09-18] MEDS ORDERED: methylPREDNISolone SOD SUCCI 125 MG/2 ML VIAL IV STA (20:32)
[2021-09-18] MEDS ORDERED: IPRATROPIUM-ALBUTEROL 3 ML NEB INHALATION STA (20:32)
--- NOTE | 2021-09-18 20:38 | ED ---
SOB HPI - General Chief Complaint: Shortness of Breath Stated Complaint: Shortness of Breath, Time Seen by Provider: 09/18/21 20:32 Source: patient, RN notes reviewed Mode of arrival: wheelchair - History of Present Illness Initial Comments: 26-year-old female history of asthma who is currently 32 weeks who states she started developing shortness of breath about 30 minutes prior to arrival. She states is consistent with her typical asthma treatment she also states her home medication did not work very well. She denies any overt chest pain fevers chills sweats chest and shortness of breath. She states she is 32 weeks thus far no problems with the . MD Complaint: shortness of breath - Related Data Home Medications Medication Instructions Recorded Confirmed Budesonide [Pulmicort] 0.25 mg INHALATION RT-BID 04/06/20 09/18/21 Albuterol Nebulized [Ventolin 2.5 mg INHALATION RT-Q6H PRN 03/10/21 09/18/21 Nebulized] Pnv,Calcium 72/Iron/Folic Acid 1 tab PO DAILY 03/27/21 09/18/21 [ Plus Tablet] predniSONE [Deltasone] 1 dose PO DIRECTED 09/18/21 09/18/21 Previous Rx's Medication Instructions Recorded Albuterol Inhaler [Ventolin Hfa 2 puff INHALATION RT-QID PRN #1 12/02/19 Inhaler] inhaler predniSONE [Deltasone] 20 mg PO BID #10 tab 09/18/21 Allergies Allergy/AdvReac Type Severity Reaction Status Date / Time amoxicillin [Amoxicillin] Allergy Anaphylaxis Verified 09/18/21 21:56 cefuroxime Allergy Rash/Hives Verified 09/18/21 21:56 Review of Systems ROS Statement: Those systems with pertinent positive or pertinent negative responses have been documented in the HPI. ROS Other: All systems not noted in ROS Statement are negative. Past Medical History Past Medical History: Asthma Additional Past Medical History / Comment(s): Chronic asthma, lung collapse (April 2019), preclampsia History of Any Multi-Drug Resistant Organisms: None Reported Past Surgical History: Section Additional Past Surgical History / Comment(s): [place] tooth extraction Past Anesthesia/Blood Transfusion Reactions: No Reported Reaction Additional Past Anesthesia/Blood Transfusion Reaction / Comment(s): no anesthesia or blood before Past Psychological History: No Psychological Hx Reported Smoking Status: Never smoker Past Alcohol Use History: None Reported Past Drug Use History: None Reported - Past Family History Father Family Medical History: Asthma Mother Family Medical History: No Reported History General Exam - General Exam Comments Initial Comments: This is a well-developed well-nourished awake alert oriented 3 female General appearance: alert, anxious, in distress Head exam: Present: atraumatic, normocephalic, normal inspection Eye exam: Present: normal appearance, PERRL, EOMI. Absent: scleral icterus, conjunctival injection, periorbital swelling ENT exam: Present: normal exam, mucous membranes moist Neck exam: Present: normal inspection, full ROM, other (No stridor JVD or bruits). Absent: tenderness, meningismus, lymphadenopathy Respiratory exam: Present: wheezes, chest wall tenderness, accessory muscle use, decreased breath sounds. Absent: respiratory distress, rales, rhonchi, stridor Cardiovascular Exam: Present: normal rhythm, tachycardia, normal heart sounds. Absent: systolic murmur, diastolic murmur, rubs, gallop, clicks GI/Abdominal exam: Present: soft, normal bowel sounds, other (Abdomen demonstrating consistent with stated gestational age). Absent: distended, tenderness, guarding, rebound, rigid Extremities exam: Present: normal inspection, full ROM, normal capillary refill. Absent: tenderness, pedal edema, joint swelling, calf tenderness Back exam: Present: normal inspection Neurological exam: Present: alert, oriented X3, CN II-XII intact Psychiatric exam: Present: normal affect, anxious Skin exam: Present: warm, dry, intact, normal color. Absent: rash Course Vital Signs 09/18/21 09/18/21 09/18/21 20:26 20:46 20:57 Temperature 98.2 F Pulse Rate 156 H 147 H 126 H Respiratory 36 H Rate Blood Pressure 168/93 O2 Sat by Pulse 98 Oximetry 09/18/21 21:04 Temperature Pulse Rate 105 H Respiratory 18 Rate Blood Pressure 134/99 O2 Sat by Pulse 97 Oximetry Medical Decision Making - Medical Decision Making I did reevaluate patient on multiple occasions she continues to improve no further treatment needed patient has clear lung sounds and good aeration she does have tenderness palpation of the costal sternal margins. We did a long discussion regarding the symptoms the findings she does have a new inhaler she will be placed on oral steroids. Patient did have NST testing which appears be within normal limits - EKG Data -: EKG Interpreted by Me EKG shows normal: sinus rhythm EKG Comments: Sinus tachycardia rate of 146 initially this was upon arrival. Interval 134 QRS duration 85 daily since QTC 335/[address] configuration artifact present - Radiology Data Radiology results: report reviewed (Image reviewed no acute findings), image reviewed Disposition Clinical Impression: Dyspnea, Asthma exacerbation, Chest wall pain, 32 weeks gestation of Disposition: HOME SELF-CARE Condition: Good Instructions (If sedation given, give patient instructions): Asthma (ED), Chest Wall Pain (ED) Prescriptions: predniSONE [Deltasone] 20 mg PO BID #10 tab Is patient prescribed a controlled substance at d/c from ED?: No Referrals: Hyacinth Montero MD [Primary Care Provider] - 1-2 days
[2021-09-18 21:08] VITALS: RESP 18
--- NOTE | 2021-09-18 21:11 | XR ---
EXAMINATION TYPE: XR chest 1V portable DATE OF EXAM: 09/18/2021 8:58 PM COMPARISON:Chest radiographs from 09/06/2021 TECHNIQUE: XR chest 1V portable Frontal view of the chest. CLINICAL INDICATION:Female, 26 years old with history of Dyspnea; FINDINGS: Lungs/Pleura: There is no evidence of pleural effusion, focal consolidation, or pneumothorax. Pulmonary vascularity: Unremarkable. Heart/mediastinum: Cardiomediastinal silhouette is unremarkable. Musculoskeletal: No acute osseous pathology. IMPRESSION: No acute cardiopulmonary disease/process.
[2021-09-18] MEDS ORDERED: MAGNESIUM SULFATE-D5W PMX 1 GM in DEXTROSE/WATER 1 100ML.BAG IVPB SCH (21:15)
[2021-09-18 22:51] VITALS: BP 141/89; PULSE 78; TEMP 98.9
== END 2021-09-18 22:51 | disposition home or self-care (01) ==
LOC: EC 20:24
DX: O99.513 Diseases of the respiratory system complicating pregnancy, third trimester (principal); J45.901 Unspecified asthma with (acute) exacerbation; Z3A.32 32 weeks gestation of pregnancy; Z79.51 Long term (current) use of inhaled steroids
CPT/HCPCS: 94640; 93005; 71045; 99285; 96374; J2930

== ENCOUNTER 2021-09-26 19:19 | Outpatient (CLI) | payer OTHER ==
[2021-09-26 21:11] VITALS: BP 135/74; PULSE 120; RESP 18; TEMP 97.6
--- NOTE | 2021-09-27 07:43 | P.MSEPDOC ---
Presenting Problems - Arrival Data Date of Arrival on Unit: 09/26/21 Time of Arrival on Unit: 19:19 Mode of Transport: Ambulatory - Complaint OB-Reason for Admission/Chief Complaint: Pain Comment: Pt presents to triage with c/o cramping that started around 1230 this afternoon. Pt states this does not feel like contx pain, more like a ripping/pulling. feeling that is worse with activity. Pt states pain started in her RUQ and is now present in her middle abdomen, close to her belly button. Pt rates pain 6/10 Medical History - Information : 6 Para: 3 Term: 2 : 1 Abortions: Spontaneous or Elective: 2 Number of Living Children: 3 - Gestational Age Gestational Age by GLYNN (wks/days): 32 Weeks and 4 Days - History Complications: Prior , Prior Comment: Pt reports history of hypertension, abruption at 27 weeks and 2 previous c-sections Review of Systems - Review of Systems Constitutional: No problems Breast: No problems ENT: No problems Cardiovascular: No problems Respiratory: No problems Gastrointestinal: No problems Genitourinary: No problems Musculoskeletal: No problems Neurological: No problems Skin: No problems Vital Signs - Temperature Temperature: 97.6 F Temperature Source: Temporal Artery Scan - Pulse Pulse Oximetery Pulse Rate: 120 Pulse Assessment Method: Auscultation - Respirations Respiratory Rate: 18 Oxygen Delivery Method: Room Air O2 Sat by Pulse Oximetry: 97 - Blood Pressure Right Arm Blood Pressure: 135/74 Blood Pressure Mean: 94 Blood Pressure Source: Automatic Cuff Medical Screen Scoring - Cervical Exam Membranes: Intact - Assessment - Baby A Baseline FHR: 155 Heart Rate - NICHD Category: Category I (Normal) NST: Reactive Physician Notification - Physician Notified Physician Notified Date: 09/26/21 Physician Notified Time: 19:56 Physician: Pollo Karimi New Order Received: Yes - Notification Comment Comment: Dr. Karimi phoned into dept. Update provided re: Pt DOM receiving care with Dr. Majano, presents to triage with c/o RUQ abdominal pain radiating to middle of abdomen near belly button, per pt pain does not feel like contx pain but more like a "ripping/pulling" sensation, 6/10, abdomen soft to palpation, denies bleeding or leaking of fluid, positive movement, hx of abruption at 27 weeks and elevated blood pressure with delivery at 37 weeks with last d/t this, taking procardia 30 mg daily, vitals, denies additional preeclamptic s/sx, history of 2 previous c-sections, will be repeat with this , cat 1 strip, no contx noted per toco. Orders received to d/c pt home at this time. Pt to call Dr. Gretel glasgow and update re: current complaints. Pt also advised per Dr. Karimi to report to [facility] for future concerns d/t that is where she receives care Maternal Triage Index - Stat/Priority 1 Stat Priority 1: No - Urgent/Priority 2 Urgent Priority 2: No - Prompt/Priority 3 Prompt Priority 3: No - Non-Urgent/Priority 4 Non-Urgent Priority 4: No Criteria Met for Priority 4: Common discomforts of , RUQ pain radiating to middle of abdomen, 12/04 - Scheduled/Requesting Priority 5 Scheduled/Requesting Priority 5: No Disposition - Disposition OB Disposition: Discharge to home Discharge Date: 09/26/21 Discharge Time: 20:25 I agree with the RN Medical Screening Exam: Yes Case reviewed; plan agreed upon as documented in EMR&OBIX.: Yes Diagnosis: RELATED CONDITIONS, UNSPECIFIED, THIRD TRIMESTER (This patient presents to triage with complaints of abdominal discomfort. Patient's care is per Dr. Majano [facility]. Patient did not call Dr. Gretel León she go to that facility for evaluation. We have no records from her care. History is such that she had a 27 week placental abruption in [address] Brown with no care. Patient's also been in this triage and in the emergency department on multiple occasions this . Patient was here with similar complaints in July and had a complete evaluation per Dr. Gutierrez that was negative. Patient denies contractions or vaginal bleeding. heart tones are reactive without decelerations. At this point there is no evidence of abruption or other maternal/ compromise. The nurse relayed to the patient the importance of continuing care with her primary paper supervisor due to her complicated history. She understands that she is at higher risk due to her previous abruption history is very important that she continue to follow closely with Dr. Majano. We asked her to call him this evening and follow up with him as soon as possible. At this point appears to be normal discomfort of .)
== END 2021-09-26 20:25 | disposition home or self-care (01) ==
LOC: FBPOP 19:19
PROVIDERS: ATTEND Obstetrics & Gynecology
DX: O26.93 Pregnancy related conditions, unspecified, third trimester (principal); Z3A.32 32 weeks gestation of pregnancy
CPT/HCPCS: 59025; G0463; 99215

== ENCOUNTER 2021-10-12 05:06 | Outpatient (CLI) | payer OTHER ==
[2021-10-12 05:18] LABS: Glucose,Whole Blood 113 mg/dL (75-99)
[2021-10-12 05:47] LABS: Appearance,Urine Clear (Clear); Bilirubin,Urine Negative (Negative); Blood,Urine Negative (Negative); Color,Urine Light Yellow; Glucose,Urine (UA) Trace (Negative); Ketones,Urine Negative (Negative); Leukocyte Esterase,Urine Negative (Negative); Nitrite,Urine Negative (Negative); PH, Urine 6.5 (5.0-8.0); Protein,Urine Negative (Negative); Specific Gravity,Urine 1.012 (1.001-1.035); Urobilinogen,Urine <2.0 mg/dL (<2.0)
[2021-10-12 05:55] LABS: Creatinine,Urine Random 62.7 mg/dL; Protein/Creatinine Ratio,Urine 0.223
[2021-10-12 05:59] LABS: Basophils # (A) 0.1 k/uL (0-0.2); Basophils % (A) 1 %; Eosinophils # (A) 0.3 k/uL (0-0.7); Eosinophils % (A) 4 %; HCT 40.3 % (34.0-46.0); HGB 12.8 gm/dL (11.4-16.0); Lymphocytes # (A) 1.1 k/uL (1.0-4.8); Lymphocytes % (A) 14 %; MCHC 31.8 g/dL (31.0-37.0); MCV 100.8 fL (80.0-100.0); Macrocytosis Slight; Mean Platelet Volume 8.4; Monocytes # (A) 0.6 k/uL (0-1.0); Monocytes % (A) 8 %; Neutrophils # (A) 5.6 k/uL (1.3-7.7); Neutrophils % (A) 72 %; Platelet Count 150 k/uL (150-450); RDW 13.3 % (11.5-15.5); WBC 7.8 k/uL (3.8-10.6)
[2021-10-12 06:10] LABS: ALT 10 U/L (4-34); AST 19 U/L (14-36); African American GFR (CKD) >90 (>60 ml/min/1.73 sqM); Blood Urea Nitrogen 7 mg/dL (7-17); LDH 420 U/L (313-618); Non-African American GFR(CKD) >90 (>60 ml/min/1.73 sqM); Uric Acid 2.8 mg/dL (3.7-7.4)
[2021-10-12 06:25] VITALS: BP 153/84; PULSE 113; RESP 16; TEMP 98
--- NOTE | 2021-10-12 09:15 | P.MSEPDOC ---
Presenting Problems - Arrival Data Date of Arrival on Unit: 10/12/21 Time of Arrival on Unit: 05:06 Mode of Transport: Ambulatory - Complaint OB-Reason for Admission/Chief Complaint: Headache, Dizziness Comment: WILSON, sinus pressure, lightheaded, dizziness Medical History - Information : 6 Para: 3 Term: 1 : 2 Number of Living Children: 3 - Gestational Age Gestational Age by GLYNN (wks/days): 34 Weeks and 6 Days - History Complications: Prior , Prior Comment: hx of pre-e Review of Systems - Review of Systems Constitutional: No problems Breast: No problems ENT: No problems Cardiovascular: No problems Respiratory: No problems Gastrointestinal: No problems Genitourinary: No problems Musculoskeletal: No problems Neurological: No problems Skin: No problems Vital Signs - Temperature Temperature: 98.0 F Temperature Source: Temporal Artery Scan - Pulse Pulse Oximetery Pulse Rate: 113 Pulse Assessment Method: Pulse Oximetry - Respirations Respiratory Rate: 16 Oxygen Delivery Method: Room Air O2 Sat by Pulse Oximetry: 97 - Blood Pressure Right Arm Blood Pressure: 153/84 Blood Pressure Mean: 107 Blood Pressure Source: Automatic Cuff Medical Screen Scoring - Assessment - Baby A Baseline FHR: 150 Heart Rate - NICHD Category: Category I (Normal) NST: Reactive Physician Notification - Physician Notified Physician Notified Date: 10/12/21 Physician Notified Time: 05:34 Physician: Pollo Karimi New Order Received: Yes - Notification Comment Comment: Dr. Karimi called, report given on maternal and status, complaints of WILSON, "sinusy", lightheaded, and dizziness. Pt states she does not think this is "baby related". Pt has a hx of pre-e and is on procardia currently. BPs were 153/84 and 130/86, BS was 113. NST is reactive, no contractions noted. Orders to send pre-e labs. 0610 - Dr. Karimi on unit, Labs reviewed (normal), still waiting on liver enzyme results. Per Dr. Karimi pt can be discharged home if results are WNL. Maternal Triage Index - Maternal Triage Index Presenting for scheduled procedure w/no complaint: No - Stat/Priority 1 Stat Priority 1: No - Urgent/Priority 2 Urgent Priority 2: Yes Provider Notified: Pollo Karimi Provider Notified Time: 05:34 Criteria Met for Priority 2: 34 6/7 weeks, WILSON, sinus pressure, lightheaded, dizziness, hx of pre-e, initial BP 153/84, repeat BP 130/86 Disposition - Disposition OB Disposition: Discharge to home Discharge Date: 10/12/21 Discharge Time: 06:15 I agree with the RN Medical Screening Exam: Yes Case reviewed; plan agreed upon as documented in EMR&OBIX.: Yes Diagnosis: HEADACHE, UNSPECIFIED (Patient presents to L&D with c/o WILSON. care is with Dr. Majano and she did not contact or go to the facility where he has privliges. No evidence or pre-eclampsia. Pt instructed to contact him today for further evaluation/treatment.)
== END 2021-10-12 06:15 | disposition home or self-care (01) ==
LOC: FBPOP 05:06
PROVIDERS: ATTEND Obstetrics & Gynecology
DX: O26.893 Other specified pregnancy related conditions, third trimester (principal); R51.9 Headache, unspecified; Z3A.34 34 weeks gestation of pregnancy; Z88.1 Allergy status to other antibiotic agents
CPT/HCPCS: 59025; 82570; 84156; 82565; 83615; 84450; 84460; 84520; 84550; 85025; 81003; G0463; 99205

== ENCOUNTER 2021-10-13 20:15 | Inpatient (IN) | payer OTHER ==
[2021-10-13] MEDS ORDERED: CITRIC ACID-SODIUM CITRATE 15 ML CUP PO ONE (21:34)
[2021-10-13] MEDS ORDERED: LACTATED RINGERS 1,000 ML IV ONE (21:34)
[2021-10-13] MEDS ORDERED: CLINDAMYCIN 900 MG in DEXTROSE 5% IN WATER 50 ML IVPB ONE ×2 (21:34)
[2021-10-13] MEDS ORDERED: LABETALOL 5 MG/ML VIAL MDV IVP PRN ×3 (21:37)
[2021-10-13] MEDS ORDERED: hydrALAZINE HCL 20 MG/ML 1 ML VIAL IVP PRN (21:37)
[2021-10-13] MEDS ORDERED: MAGNESIUM SULFATE-WATER PMX 4 GM in WATER FOR INJECTION 1 100ML.BAG IVPB ONE (21:37)
--- NOTE | 2021-10-13 21:48 | P.HPOB ---
History of Present Illness H&P Date: 10/13/21 Chief Complaint: Headache and blurred vision This patient is a 26-year-old 6 para 4 female estimated gestational age 35 weeks by patient's stated due date who presents to labor and delivery with complaints of headache and blurred vision. Patient's care has been under Dr. Majano and has been complicated by hypertension which she states she started on blood pressure medicines at 18 weeks. Patient's history is also significant for history of complete placental abruption at 27 weeks with a previous . Patient was seen today at Dr. Majano's office by his pharmacist assistant Nicole Barcenas and states that she had a blood pressure 198/98. Patient states that she was given a jug for a 24-hour urine and was told to get blood work done tomorrow. Patient that time was having headaches and blurred vision. Patient's subsequent weight has come to this labor and delivery because it is closer to her house. Patient denies other problems in this other than asthma. Review of Systems Constitutional: Reports as per HPI Eyes: bilateral blurred vision Genitourinary: Reports as per HPI, Reports Menstruation: Reports amenorrhea Past Medical History Past Medical History: Asthma Additional Past Medical History / Comment(s): Chronic asthma, lung collapse (Apr), preclampsia History of Any Multi-Drug Resistant Organisms: None Reported Past Surgical History: Section Additional Past Surgical History / Comment(s): [place] tooth extraction Past Anesthesia/Blood Transfusion Reactions: No Reported Reaction Additional Past Anesthesia/Blood Transfusion Reaction / Comment(s): no anesthesia or blood before Past Psychological History: No Psychological Hx Reported Smoking Status: Never smoker Past Alcohol Use History: None Reported Past Drug Use History: None Reported - Past Family History Father Family Medical History: Asthma Mother Family Medical History: No Reported History Medications and Allergies Home Medications Medication Instructions Recorded Confirmed Type Albuterol Inhaler [Ventolin Hfa 2 puff INHALATION RT-QID PRN #1 12/02/19 10/13/21 Rx Inhaler] inhaler Albuterol Nebulized [Ventolin 2.5 mg INHALATION RT-Q6H PRN 03/10/21 10/13/21 History Nebulized] Pnv,Calcium 72/Iron/Folic Acid 1 tab PO DAILY 03/27/21 10/13/21 History [ Plus Tablet] NIFEdipine XL [Procardia XL] 1 tab PO DAILY 09/26/21 10/13/21 History Allergies Allergy/AdvReac Type Severity Reaction Status Date / Time amoxicillin [Amoxicillin] Allergy Anaphylaxis Verified 10/13/21 20:36 Exam Intake and Output 10/13/21 10/13/21 10/13/21 06:59 14:59 22:59 Other: Weight 56.245 kg - OBG Physical Exam Abdomen: bowel sounds normal, no diffuse tenderness, no bruit present, no guarding noted, no hepatomegaly, no splenomegaly, no mass Uterus: enlarged Assessment and Plan Assessment: This is a 26-year-old 6 para 4 female 35-0/7 weeks gestation with preeclampsia with severe features. Patient's blood pressure is elevated significantly persistently greater than 160/110. Patient is having headaches and blurred vision in this is been going on for most of the day. Currently heart tones are category 1. I discussed the clinical situation with the patient and her past obstetrical history of a complete abruption have recommended proceed with delivery immediately by repeat section. Plan is to treat her with IV antihypertensives, magnesium sulfate, and proceed with delivery at this time. (1) 35 weeks gestation of Current Visit: Yes Status: Acute Code(s): Z3A.35 - 35 WEEKS GESTATION OF SNOMED Code(s): 10503945 (2) Severe pre-eclampsia Current Visit: Yes Status: Acute Code(s): O14.10 - SEVERE PRE-ECLAMPSIA, UNS PECIFIED TRIMESTER SNOMED Code(s): 32018383 (3) Previous delivery affecting Current Visit: Yes Status: Acute Code(s): O34.219 - MATERNAL CARE FOR UNSP TYPE SCAR FROM PREVIOUS DEL SNOMED Code(s): 373395818
[2021-10-13 22:10] LABS: Basophils % (A) 0 %; Eosinophils # (A) 0.4 k/uL (0-0.7); Eosinophils % (A) 4 %; HCT 44.2 % (34.0-46.0); Lymphocytes # (A) 1.3 k/uL (1.0-4.8); Lymphocytes % (A) 16 %; MCH 31.5 pg (25.0-35.0); MCHC 31.6 g/dL (31.0-37.0); MCV 99.7 fL (80.0-100.0); Mean Platelet Volume 8.6; Monocytes # (A) 0.5 k/uL (0-1.0); Monocytes % (A) 6 %; Neutrophils # (A) 6.1 k/uL (1.3-7.7); Neutrophils % (A) 72 %; Platelet Count 187 k/uL (150-450); RBC 4.43 m/uL (3.80-5.40); RDW 13.3 % (11.5-15.5); WBC 8.5 k/uL (3.8-10.6)
[2021-10-13] MEDS ORDERED: ePHEDrine 50 MG/ML 1 ML VIAL ONE (22:14)
[2021-10-13] MEDS ORDERED: NALBUPHINE 10 MG/ML (1 ML AMP) ONE (22:14)
[2021-10-13] MEDS ORDERED: MORPHINE SULFATE (PF) 0.3 MG/0.3 ML SYR ONE (22:14)
[2021-10-13] MEDS ORDERED: OXYTOCIN 30 UNITS/500 ML NS BAG IV ONE (22:14)
[2021-10-13] MEDS ORDERED: OXYTOCIN 10 UNIT/ML 1 ML VIAL ONE (22:14)
[2021-10-13] MEDS ORDERED: ONDANSETRON 4 MG/2 ML VIAL ONE (22:14)
[2021-10-13 22:15] LABS: Appearance,Urine Clear (Clear); Bilirubin,Urine Negative (Negative); Blood,Urine Negative (Negative); Color,Urine Yellow; Glucose,Urine (UA) Negative (Negative); Ketones,Urine Negative (Negative); Leukocyte Esterase,Urine Negative (Negative); Nitrite,Urine Negative (Negative); PH, Urine 6.5 (5.0-8.0); Protein,Urine Negative (Negative); Specific Gravity,Urine 1.011 (1.001-1.035); Urobilinogen,Urine <2.0 mg/dL (<2.0)
[2021-10-13 22:20] LABS: ALT 12 U/L (4-34); AST 22 U/L (14-36); African American GFR (CKD) >90 (>60 ml/min/1.73 sqM); Blood Urea Nitrogen 6 mg/dL (7-17); LDH 460 U/L (313-618); Magnesium 1.9 mg/dL (1.6-2.3); Non-African American GFR(CKD) >90 (>60 ml/min/1.73 sqM); Uric Acid 3.2 mg/dL (3.7-7.4)
[2021-10-13 22:42] LABS: INR 0.8 (<1.2); Partial Thromboplastin Time 24.8 sec (22.0-30.0); Prothrombin Time 9.3 sec (9.0-12.0)
--- NOTE | 2021-10-13 23:02 | P.OP ---
Date of Procedure: 10/13/21 Preoperative Diagnosis: #1: 35-0/7 week intrauterine . #2: Preeclampsia with severe features. #3: Previous section 2. Postoperative Diagnosis: Same Procedure(s) Performed: Repeat low transverse section Anesthesia: spinal Surgeon: Pollo Karimi Physiognomist #1: Margret Parra Estimated Blood Loss (ml): 400 Pathology: other (Placenta) Condition: stable Disposition: floor Indications for Procedure: Please see dictated H&P for intimate details of this patient's admission. In brief summary this is a 26-year-old 6 para 3 female 35-0/7 weeks gestation who presents to labor and delivery with complaints of headache and blurred vision since earlier today at her doctor's office. On admission patient has significant blood pressure elevation of 163/105 and this was persistent and reproducible. Patient had a headache and blurred vision. Patient has a history of hypertension began apparently at 18 weeks per her history. Patient also has a history of complete placental abruption at 27 weeks Due to the above factors and preeclampsia was severe features, I recommended proceed with delivery immediately. Patient is given IV magnesium and antibiotics. She's given IV labetalol. I did discuss the surgery and risks and risks of infection, bleeding, possible injury to bowel, bladder, vessels, and/or other organs. All the patient's questions are answered and written consents obtained. Operative Findings: This is a vigorous viable female Apgars 8 and 9 delivery time was 2032 hours. Description of Procedure: This patient has a Farias catheter placed to straight drain. She subsequent taken to the operating room where she sat up and spinal anesthetic is administered without incident. With adequate level of anesthesia she has abdominal prep and drape. Scalpels and taken the previous Pfannenstiel incision is excised. Second scalpel is taken down to the fascia the fascia scored with a knife. Fascial incision extended bilaterally without difficulty. Bladder blade is then placed. Bladder peritoneum was taken sharply off the lower uterine segment. Scalpels and taken a low transverse uterine incision is then made. Using a hemostat I into the uterine cavity bluntly and there is loss of clear fluid. With fundal pressure we then have delivery of this infant's head. Mouth and nares are bulb suctioned. There is no evidence of a nuchal cord. With more fundal pressure we deliver the rest of this 's body. This is a vigorous viable female Apgars are 8 and 9 delivery time was 20-32 hours. After delivery of the the umbilical cord is doubly clamped and cut be trivascular. The placenta is then manually extracted intact. It is anterior and quite ratty and the anterior surface of the uterus however complete removal is done. Uterus is then externalized and uterine incision demarcated with Alvarado clamps. Uterine incision closed using 0 Vicryl running fashion. This is done in 2 layers. Excellent hemostasis is noted. Excess fluid is removed from the abdomen and pelvis. Uterus, tubes, ovaries appear normal for term gestation. Parietal peritoneum was identified and closed using 0 Vicryl running fashion. Rectus muscles are reapproximated already with this stitch. Fascia is then closed using 0 Vicryl. Fascial incision is intact and hemostatic. Subcutaneous tissues to thin to be reapproximated therefore the skin is then reapproximated using a stapler. Excellent hemostasis is noted. All counts are correct 3. There are no complications. Infant is taken special care due to prematurity and mother's taken to her birthing suite in satisfactory condition. Plan is to continue magnesium sulfate for at least 24 hours, watch her blood pressure and fluid balance closely.
[2021-10-13] MEDS ORDERED: diphenhydrAMINE 50 MG/ML 1 ML VIAL IVP PRN (23:05)
[2021-10-13] MEDS ORDERED: SIMETHICONE 80 MG CHEWABLE PO PRN (23:05)
[2021-10-13] MEDS ORDERED: ONDANSETRON 4 MG/2 ML VIAL IVP PRN (23:05)
[2021-10-13] MEDS ORDERED: LANOLIN CREAM 5 GM TUBE TOPICAL PRN (23:05)
[2021-10-13] MEDS ORDERED: ZOLPIDEM 5 MG TAB PO PRN (23:05)
[2021-10-13] MEDS ORDERED: NALOXONE 0.4 MG/ML 1 ML VIAL IV PRN (23:05)
[2021-10-13] MEDS ORDERED: METOCLOPRAMIDE 5 MG/ML 2 ML VIAL IVP PRN (23:05)
[2021-10-13] MEDS ORDERED: OXYTOCIN 30 UNITS/500 ML NS 30 UNIT in SALINE 1 500ML.BAG IV SCH (23:15)
[2021-10-13] MEDS ORDERED: LACTATED RINGERS 1,000 ML IV SCH (23:15)
[2021-10-13] MEDS: MAGNESIUM SULFATE-WATER PMX 20 GM in WATER FOR INJECTION 1 500ML.BAG IV SCH (23:21)
[2021-10-13] MEDS: LACTATED RINGERS 1,000 ML IV SCH (23:22)
[2021-10-14] MEDS: ACETAMINOPHEN TAB 500 MG TAB PO PRN ×3 (03:02→22:39)
[2021-10-14] MEDS: KETOROLAC 15 MG/ML 1 ML VIAL IVP SCH ×3 (05:34→18:24)
--- NOTE | 2021-10-14 06:30 | P.PNOBGPC ---
Subjective - Subjective Patient reports: Reports appetite normal, Reports voiding normally, Reports pain well controlled, Reports ambulating normally : doing well Objective - Vital Signs Latest vital signs: Vital Signs Temp Pulse Resp BP Pulse Ox 10/14/21 06:00 87 16 117/61 10/14/21 05:00 100 16 109/61 10/14/21 04:00 94 16 120/68 10/14/21 03:00 97.5 F L 95 16 115/69 10/14/21 02:00 87 16 103/56 10/14/21 01:00 97.6 F 79 16 100/58 100 10/14/21 00:59 97.6 F 79 16 100/58 100 10/14/21 00:29 76 16 114/79 100 10/13/21 23:59 73 16 127/87 97 10/13/21 23:44 79 16 130/89 99 10/13/21 23:29 75 16 153/99 100 10/13/21 23:14 75 16 123/99 99 10/13/21 23:05 98 10/13/21 22:59 96.8 F L 73 16 116/73 100 10/13/21 22:08 101 H 16 156/101 100 10/13/21 21:53 93 16 163/101 100 10/13/21 21:38 98.1 F 112 H 16 164/112 100 10/13/21 21:35 98.1 F 112 H 16 164/112 100 10/13/21 20:39 98.2 F 105 H 16 163/105 100 Intake and Output 10/13/21 10/13/21 10/14/21 14:59 22:59 06:59 Output Total 500 3070 Balance -500 -3070 Output: Urine 100 1550 Estimated Blood Loss 400 Output, Quantitative 1520 Blood Loss Other: Voiding Method Indwelling Catheter Indwelling Catheter Weight 56.245 kg - Exam Lungs: bilateral: normal Chest: Normal S1, Normal S2 Extremities: Present: normal Abdomen: Present: normal appearance, soft. Absent: distention, tenderness Incision: Present: normal, dry, intact Uterus: Present: normal, firm - Labs Labs: Abnormal Lab Results - Last 24 Hours (Table) 10/13/21 10/13/21 Range/Units 21:53 21:53 Fibrinogen 518 H (200-500) mg/dL BUN 6 L (7-17) mg/dL Creatinine 0.49 L (0.52-1.04) mg/dL Uric Acid 3.2 L (3.7-7.4) mg/dL Assessment and Plan Assessment: Post operative day #1. Patient is having some incisional discomfort but otherwise feeling well. Headache is gone today blood pressures are markedly improved since delivery and she is still on magnesium sulfate until 12:00 this evening. Examination shows her incision to be intact and dry. She appears to be having normal lochia. Repeat CBC is pending. Plan today is to continue magnesium sulfate for a total of 24 hours. We'll watch her blood pressures closely and hold off on antihypertensives unless needed. (1) 35 weeks gestation of Current Visit: Yes Status: Acute Code(s): Z3A.35 - 35 WEEKS GESTATION OF SNOMED Code(s): 18337670 (2) Severe pre-eclampsia Current Visit: Yes Status: Acute Code(s): O14.10 - SEVERE PRE-ECLAMPSIA, UNSPECIFIED TRIMESTER SNOMED Code(s): 50252631 (3) Previous delivery affecting Current Visit: Yes Status: Acute Code(s): O34.219 - MATERNAL CARE FOR UNSP TYPE SCAR FROM PREVIOUS DEL SNOMED Code(s): 005331469
--- NOTE | 2021-10-14 06:41 | P.MSEPDOC ---
Presenting Problems - Arrival Data Date of Arrival on Unit: 10/14/21 Time of Arrival on Unit: 21:00 Mode of Transport: Ambulatory - Complaint OB-Reason for Admission/Chief Complaint: Acute Nausea/Vomiting, Headache, Visual Disturbances Comment: Patient presents to triage with c/o constant headache, blurry vision and N/V Medical History - Information : 6 Para: 3 Term: 2 : 1 Abortions: Spontaneous or Elective: 2 Number of Living Children: 3 - Gestational Age Gestational Age by GLYNN (wks/days): 35 Weeks and 1 Days Review of Systems - Review of Systems Constitutional: No problems Breast: No problems ENT: No problems Cardiovascular: No problems Respiratory: No problems Gastrointestinal: No problems Genitourinary: No problems Musculoskeletal: No problems Neurological: No problems Skin: No problems Vital Signs - Temperature Temperature: 97.5 F Temperature Source: Temporal Artery Scan - Pulse Pulse Oximetery Pulse Rate: 87 Pulse Assessment Method: Pulse Oximetry - Respirations Respiratory Rate: 16 Oxygen Delivery Method: Room Air - Blood Pressure Left Arm Blood Pressure: 117/61 Blood Pressure Mean: 79 Blood Pressure Source: Automatic Cuff Medical Screen Scoring - Assessment - Baby A Baseline FHR: 155 Heart Rate - NICHD Category: Category I (Normal) NST: Reactive Physician Notification - Physician Notified Physician Notified Date: 10/14/21 Physician Notified Time: 20:39 Physician: Pollo Karimi New Order Received: Yes - Notification Comment Comment: RN spoke with Dr. Karimi regarding patient c/o headache, blurry vision, N/V. Reported patient is a DOM patient, sees Dr. Majano and saw him today regarding the same complaints, patient is collecting a 24-hour urine. Reported on maternal vital signs, 2+ reflexes, no clonus, FHT. Per Dr. Karimi, admit patient for observation, NPO diet, start IV and run LR at 125, pre-e labs, serial BPs for 2 hours and patient to stay on the monitor. Maternal Triage Index - Maternal Triage Index Presenting for scheduled procedure w/no complaint: No - Stat/Priority 1 Stat Priority 1: No - Urgent/Priority 2 Urgent Priority 2: Yes Provider Notified: Pollo Karimi Provider Notified Time: 20:39 Criteria Met for Priority 2: SBP > 140 or DBP > 90 symptomatic - constant headache, blurry vision, N/V Disposition - Disposition OB Disposition: Admit, LDRP Suite Transferred to:: Suite 2 I agree with the RN Medical Screening Exam: Yes Case reviewed; plan agreed upon as documented in EMR&OBIX.: Yes Diagnosis: SEVERE PRE-ECLAMPSIA, THIRD TRIMESTER
--- NOTE | 2021-10-14 07:12 | P.PN ---
Progress Note - Text Progress Note Date: 10/14/21 Patient seen and examined at bedside POD 1 s/p repeat . Patient received spinal with duramorph for procedure and post operative pain management. Patient has regained motor and sensory function of her lower extremities. She has not tried ambulating because she just woke up. Will try today. Patient reports moderate pain. She received Tylenol and toradol this AM with strong medicines ordered if needed. Patient denies SOB, CP, N/V, F/C, WILSON. Will continue to follow.
[2021-10-14 07:14] LABS: Basophils % (A) 0 %; Eosinophils % (A) 0 %; HCT 31.7 % (34.0-46.0); Lymphocytes # (A) 0.6 k/uL (1.0-4.8); Lymphocytes % (A) 6 %; MCH 32.3 pg (25.0-35.0); Macrocytosis Slight; Monocytes # (A) 0.5 k/uL (0-1.0); Monocytes % (A) 5 %; Neutrophils % (A) 87 %; Platelet Count 144 k/uL (150-450); RBC 3.14 m/uL (3.80-5.40); RDW 13.2 % (11.5-15.5); WBC 10.4 k/uL (3.8-10.6)
[2021-10-14 07:44] LABS: HGB 10.1 gm/dL (11.4-16.0)
[2021-10-14] MEDS: SENNOSIDES-DOCUSATE SODIUM 1 EACH TAB PO SCH ×2 (08:01→20:05)
[2021-10-14] MEDS: MAGNESIUM SULFATE-WATER PMX 20 GM in WATER FOR INJECTION 1 500ML.BAG IV SCH ×2 (09:30→20:06)
[2021-10-14] MEDS: LACTATED RINGERS 1,000 ML IV SCH ×2 (09:32→15:09)
[2021-10-14] MEDS: diphenhydrAMINE 25 MG CAP PO PRN ×2 (14:39→20:05)
[2021-10-15] MEDS: KETOROLAC 15 MG/ML 1 ML VIAL IVP SCH ×3 (00:07→12:25)
[2021-10-15] MEDS: diphenhydrAMINE 25 MG CAP PO PRN (01:46)
--- NOTE | 2021-10-15 06:18 | P.PNOBGPC ---
Subjective - Subjective Patient reports: Reports appetite normal, Reports voiding normally, Reports pain well controlled, Reports ambulating normally : doing well Objective - Vital Signs Latest vital signs: Vital Signs Temp Pulse Resp BP Pulse Ox 10/15/21 04:00 97.9 F 83 18 131/78 99 10/15/21 01:53 80 18 112/62 99 10/15/21 00:00 89 18 130/80 100 10/14/21 23:05 100 10/14/21 23:00 91 135/86 10/14/21 22:00 93 16 144/90 10/14/21 21:00 78 16 125/72 10/14/21 20:00 97.8 F 75 16 132/77 10/14/21 19:00 94 16 131/79 10/14/21 18:00 90 131/88 10/14/21 17:00 91 155/82 10/14/21 16:00 97.3 F L 76 18 137/87 100 10/14/21 15:00 84 122/67 10/14/21 14:00 98.0 F 89 18 123/72 98 10/14/21 13:00 88 121/78 10/14/21 12:00 97.8 F 96 18 124/80 98 10/14/21 10:00 125/76 10/14/21 09:00 98.2 F 93 18 116/66 98 10/14/21 08:00 93 120/77 10/14/21 07:00 112/69 10/14/21 06:41 97.5 F L 87 16 117/61 Intake and Output 10/14/21 10/14/21 10/15/21 14:59 22:59 06:59 Intake Total 500 500 Output Total 775 2350 400 Balance -275 -5700 -400 Intake: Intake, IV Titration 500 500 Amount Magnesium Sulfate-Water 500 500 Pmx 20 gm In Water For Injection 1 500ml.bag @ 2 GM/HR 50 mls/hr IV .Q10H [facility] Rx#:[id number] Output: Urine 775 2350 400 Uretheral (Farias) 325 Other: # Voids 1 1 Weight 51.426 kg - Exam Lungs: bilateral: normal Chest: Normal S1, Normal S2 Extremities: Present: normal Abdomen: Present: normal appearance, soft. Absent: distention, tenderness Incision: Present: normal, dry, intact Uterus: Present: normal, firm - Labs Labs: Abnormal Lab Results - Last 24 Hours (Table) 10/14/21 Range/Units 06:52 RBC 3.14 L (3.80-5.40) m/uL Hgb 10.1 L D (11.4-16.0) gm/dL Hct 31.7 L (34.0-46.0) % MCV 101.0 H (80.0-100.0) fL Plt Count 144 L (150-450) k/uL Neutrophils # 9.0 H (1.3-7.7) k/uL Lymphocytes # 0.6 L (1.0-4.8) k/uL Assessment and Plan Assessment: Postoperative day #2. Patient is resting without new complaints and her headache is gone away. Blood pressures remained normal since delivery without antihypertensives. We did discontinue her magnesium sulfate at midnight last night. Catheter has been discontinued as well. Plan today is to repeat her CBC, encourage ambulation, watch her blood pressures, and continue routine postoperative care. (1) 35 weeks gestation of Current Visit: Yes Status: Acute Code(s): Z3A.35 - 35 WEEKS GESTATION OF SNOMED Code(s): 70659194 (2) Severe pre-eclampsia Current Visit: Yes Status: Acute Code(s): O14.10 - SEVERE PRE-ECLAMPSIA, UNSPECIFIED TRIMESTER SNOMED Code(s): 89585554 (3) Previous delivery affecting Current Visit: Yes Status: Acute Code(s): O34.219 - MATERNAL CARE FOR UNSP TYPE SCAR FROM PREVIOUS DEL SNOMED Code(s): 440865353
[2021-10-15] MEDS: IBUPROFEN 600 MG TAB PO PRN ×3 (06:21→22:01)
[2021-10-15 06:30] LABS: Basophils % (A) 0 %; Eosinophils # (A) 0.2 k/uL (0-0.7); Eosinophils % (A) 2 %; HCT 25.8 % (34.0-46.0); Lymphocytes # (A) 1.4 k/uL (1.0-4.8); Lymphocytes % (A) 17 %; MCH 32.5 pg (25.0-35.0); MCHC 32.5 g/dL (31.0-37.0); MCV 100.1 fL (80.0-100.0); Mean Platelet Volume 8.2; Monocytes # (A) 0.4 k/uL (0-1.0); Monocytes % (A) 5 %; Neutrophils # (A) 6.1 k/uL (1.3-7.7); Neutrophils % (A) 75 %; Platelet Count 159 k/uL (150-450); RBC 2.58 m/uL (3.80-5.40); RDW 13.1 % (11.5-15.5); WBC 8.2 k/uL (3.8-10.6)
[2021-10-15 06:35] LABS: HGB 8.4 gm/dL (11.4-16.0)
[2021-10-15] MEDS: SENNOSIDES-DOCUSATE SODIUM 1 EACH TAB PO SCH ×2 (07:48→20:14)
[2021-10-15] MEDS: FERROUS SULFATE 325 MG TAB PO SCH ×2 (07:57→17:20)
[2021-10-15] MEDS: ALBUTEROL NEBULIZED 2.5 MG/3 ML INHALATION PRN ×2 (15:09→19:50)
[2021-10-15] MEDS: ACETAMINOPHEN TAB 500 MG TAB PO PRN (20:10)
[2021-10-15] MEDS: LABETALOL 100 MG TAB PO SCH (20:11)
[2021-10-15] MEDS ORDERED: LABETALOL 100 MG TAB PO SCH (21:00)
[2021-10-16] MEDS: IBUPROFEN 600 MG TAB PO PRN ×2 (04:19→13:55)
--- NOTE | 2021-10-16 06:03 | P.PNOBGPC ---
Subjective - Subjective Patient reports: Reports appetite normal, Reports voiding normally, Reports pain well controlled, Reports ambulating normally : doing well Objective - Vital Signs Latest vital signs: Vital Signs Temp Pulse Pulse Resp BP Pulse Ox 10/16/21 04:00 98.0 F 76 16 125/79 10/16/21 00:00 98.2 F 99 16 122/62 10/15/21 20:03 111 H 10/15/21 20:00 98.3 F 125 H 16 165/82 98 10/15/21 19:50 115 H 10/15/21 15:28 98.2 F 98 148/91 10/15/21 15:22 87 10/15/21 15:14 87 10/15/21 14:45 98.5 F 105 H 17 135/78 10/15/21 12:31 98.4 F 105 H 18 146/75 100 10/15/21 08:35 99 128/65 98 10/15/21 07:17 98.1 F 121 H 138/87 98 10/15/21 06:35 98.3 F 101 H 16 127/65 99 Intake and Output 10/15/21 10/15/21 10/16/21 14:59 22:59 06:59 Output Total 500 Balance -500 Output: Urine 500 Other: # Voids 1 3 # Bowel Movements 0 1 1 - Exam Lungs: bilateral: normal Chest: Normal S1, Normal S2 Extremities: Present: normal Abdomen: Present: normal appearance, soft. Absent: distention, tenderness Incision: Present: normal, dry, intact Uterus: Present: normal, firm - Labs Labs: Abnormal Lab Results - Last 24 Hours (Table) 10/15/21 Range/Units 06:09 RBC 2.58 L (3.80-5.40) m/uL Hgb 8.4 L D (11.4-16.0) gm/dL Hct 25.8 L (34.0-46.0) % MCV 100.1 H (80.0-100.0) fL Assessment and Plan Assessment: Postoperative day #3. Patient is resting without new complaints. Blood p ressures being going up again yesterday 148/91 and 165/82 therefore restarted her Labetalol there are much better today. Uterus is firm nontender she's having normal lochia. Hemoglobin did drop her pressure bleeding from preoperative levels consistent with some postoperative bleeding but this appears to have resolved. Patient is asymptomatic and on iron. Baby is still in special care therefore patient wishes to continue to stay until tomorrow. Plan is to check a CBC and continue routine postoperative care. We will continue to watch her blood pressures increase her medications if necessary. (1) 35 weeks gestation of Current Visit: Yes Status: Acute Code(s): Z3A.35 - 35 WEEKS GESTATION OF SNOMED Code(s): 51447439 (2) Severe pre-eclampsia Current Visit: Yes Status: Acute Code(s): O14.10 - SEVERE PRE-ECLAMPSIA, UNSPECIFIED TRIMESTER SNOMED Code(s): 04481606 (3) Previous delivery affecting Current Visit: Yes Status: Acute Code(s): O34.219 - MATERNAL CARE FOR UNSP TYPE SCAR FROM PREVIOUS DEL SNOMED Code(s): 816296055
[2021-10-16] MEDS: FERROUS SULFATE 325 MG TAB PO SCH ×2 (07:25→21:58)
[2021-10-16] MEDS: SENNOSIDES-DOCUSATE SODIUM 1 EACH TAB PO SCH ×3 (07:25→20:43)
[2021-10-16] MEDS: ACETAMINOPHEN TAB 500 MG TAB PO PRN (07:26)
[2021-10-16 07:31] LABS: Basophils % (A) 0 %; Eosinophils # (A) 0.2 k/uL (0-0.7); Eosinophils % (A) 4 %; HCT 26.2 % (34.0-46.0); HGB 8.2 gm/dL (11.4-16.0); Hypochromasia Slight; Lymphocytes # (A) 1.7 k/uL (1.0-4.8); Lymphocytes % (A) 30 %; MCH 31.5 pg (25.0-35.0); MCHC 31.4 g/dL (31.0-37.0); MCV 100.1 fL (80.0-100.0); Mean Platelet Volume 7.8; Monocytes # (A) 0.5 k/uL (0-1.0); Monocytes % (A) 8 %; Neutrophils # (A) 3.1 k/uL (1.3-7.7); Neutrophils % (A) 55 %; Platelet Count 180 k/uL (150-450); RBC 2.62 m/uL (3.80-5.40); RDW 12.9 % (11.5-15.5); WBC 5.7 k/uL (3.8-10.6)
[2021-10-16] MEDS: ALBUTEROL NEBULIZED 2.5 MG/3 ML INHALATION PRN ×3 (07:59→19:52)
[2021-10-16] MEDS: LABETALOL 100 MG TAB PO SCH (10:45)
[2021-10-17 00:29] VITALS: RESP 18
[2021-10-17] MEDS: LABETALOL 100 MG TAB PO SCH ×2 (00:29→12:39)
[2021-10-17] MEDS: IBUPROFEN 600 MG TAB PO PRN ×2 (00:29→07:55)
[2021-10-17 07:52] VITALS: BP 121/81; TEMP 98.4
[2021-10-17] MEDS: FERROUS SULFATE 325 MG TAB PO SCH (07:55)
[2021-10-17] MEDS: SENNOSIDES-DOCUSATE SODIUM 1 EACH TAB PO SCH (09:59)
--- NOTE | 2021-10-17 12:12 | P.DS ---
Providers Date of admission: 10/13/21 21:36 Expected date of discharge: 10/17/21 Attending physician: Pollo Karimi Primary care physician: Stated None Hospital Course: Please see history and physical and operative notes for details of patient's admission. This is a 26-year-old female 6 para 3 at 35-0/7 weeks who presented with extremely high blood pressures and nonreassuring heart tones. She underwent a repeat section on 10/13/2021 and delivered a viable female infant with scores of 8 at 1 minute and 9 at 5 minutes and weight of 5 lbs. 8 oz. Postoperatively she did well on magnesium sulfate seizure prophylaxis. She was started on labetalol on postoperative day #3 due to slightly increased blood pressures. This has controlled her blood pressures and she denies any other symptoms. Lochia has been decreasing overall. She is bottle feeding. Baby is still in level I nursery. She is passing flatus and bowel movement. Vital signs are stable. Abdomen is soft with fundus firm and nontender. Incision is clean dry and intact with matthew in place. Extremities show negative Homans. Impression is status post repeat section postoperative day #4, severe preeclampsia-status post magnesium sulfate seizure prophylaxis and currently on labetalol. Plan is to discharge home today. Routine postoperative and instructions are given. She is discharged home on ibuprofen and Tylenol along with labetalol 100 mg twice a day. She is instructed to follow-up with Dr. Majano who is her normal surfacer. She is advised to call the office if she has any further questions or concerns prior to her postoperative appointment. She is advised to follow up with Dr. Majano within 1 week. Procedures: Repeat low transverse section on 10/13/2021 Patient Condition at Discharge: Stable Plan - Discharge Summary New Discharge Prescriptions: New Ferrous Sulfate [Iron (65 MG Elemental)] 325 mg PO BID-W/MEALS #60 tab Ibuprofen [Motrin] 600 mg PO Q6H PRN #40 tab PRN Reason: Pain oxyCODONE HCL [OxyIR] 5 mg PO Q4HR PRN #18 tab PRN Reason: Pain Scale 4 - 6 Labetalol [Trandate] 100 mg PO BID #60 tab No Action Albuterol Inhaler [Ventolin Hfa Inhaler] 2 puff INHALATION RT-QID PRN #1 inhaler PRN Reason: Shortness Of Breath Or Wheezing Pnv,Calcium 72/Iron/Folic Acid [ Plus Tablet] 1 tab PO DAILY NIFEdipine XL [Procardia XL] 1 tab PO DAILY Albuterol Nebulized [Ventolin Nebulized] 2.5 mg INHALATION RT-Q6H PRN PRN Reason: Shortness Of Breath Discharge Medication List Albuterol Inhaler [Ventolin Hfa Inhaler] 2 puff INHALATION RT-QID PRN #1 inhaler 12/02/19 [Rx] Albuterol Nebulized [Ventolin Nebulized] 2.5 mg INHALATION RT-Q6H PRN 03/10/21 [History] Pnv,Calcium 72/Iron/Folic Acid [ Plus Tablet] 1 tab PO DAILY 03/27/21 [History] NIFEdipine XL [Procardia XL] 1 tab PO DAILY 09/26/21 [History] Ferrous Sulfate [Iron (65 MG Elemental)] 325 mg PO BID-W/MEALS #60 tab 10/16/21 [Rx] Ibuprofen [Motrin] 600 mg PO Q6H PRN #40 tab 10/16/21 [Rx] Labetalol [Trandate] 100 mg PO BID #60 tab 10/16/21 [Rx] oxyCODONE HCL [OxyIR] 5 mg PO Q4HR PRN #18 tab 10/16/21 [Rx] Follow up Appointment(s)/Referral(s): Hugo Majano DO [REFERRING] - 1 Week Patient Instructions/Handouts: (DC) Activity/Diet/Wound Care/Special Instructions: No strenuous activity or heavy lifting for 6 weeks. No intercourse or anything per vagina for 6 weeks. Please call your primary surfacer if any fever, chills, excessive vaginal bleeding, and/or abdominal pain. Please schedule a [address] Majano for a postop incision check and blood pressure check. Discharge Disposition: HOME SELF-CARE
[2021-10-17] MEDS: ALBUTEROL NEBULIZED 2.5 MG/3 ML INHALATION PRN (12:26)
[2021-10-17 12:37] VITALS: PULSE 92
== END 2021-10-17 12:58 | disposition home or self-care (01) | DRG 788 ==
LOC: FBPOP 20:15 → 4FBP 21:00 → OBSVTOIN 21:36
PROVIDERS: ADMIT Obstetrics & Gynecology; ATTEND Obstetrics & Gynecology
PROC: 10D00Z1 Extraction of Products of Conception, Low, Open Approach (ICD-10-PCS; principal; 2021-10-13 22:15)
DX: O14.14 Severe pre-eclampsia complicating childbirth (principal); O34.211 Maternal care for low transverse scar from previous cesarean delivery; O76 Abnormality in fetal heart rate and rhythm complicating labor and delivery; O99.52 Diseases of the respiratory system complicating childbirth; J45.909 Unspecified asthma, uncomplicated; Z37.0 Single live birth; Z3A.35 35 weeks gestation of pregnancy; Z79.899 Other long term (current) drug therapy; Z82.5 Family history of asthma and other chronic lower respiratory diseases; Z28.310 Unvaccinated for COVID-19
CPT/HCPCS: 59025; 81003; 82565; 83615; 83735; 84450; 84460; 84520; 84550; 85025; 85384; 85610; 85730; 86850; 86900; 86901; 94640; 99215

== ENCOUNTER 2021-10-18 04:19 | Inpatient (IN) | payer OTHER ==
[2021-10-18] MEDS ORDERED: ALBUTEROL NEBULIZED 2.5 MG/3 ML INHALATION STA (05:15)
[2021-10-18] MEDS ORDERED: hydrALAZINE HCL 20 MG/ML 1 ML VIAL IVP STA (05:15)
--- NOTE | 2021-10-18 05:19 | ED ---
SOB HPI - General Chief Complaint: Shortness of Breath Stated Complaint: ANNE Time Seen by Provider: 10/18/21 04:56 Source: patient Mode of arrival: ambulatory Limitations: no limitations - History of Present Illness Initial Comments: This patient is a 26-year-old woman who presents to be evaluated for shortness of breath. She states the symptoms have been getting worse over the course of last night into this morning. The patient recent history includes having section here for moderately severe preeclampsia. She had been discharged a day ago and then was becoming more short of breath. The patient states it feels like her asthma is flaring up. She tried using albuterol but was not feeling much better. She has not noted fever or chills. No productive cough. No chest pain. No leg pain or swelling. No change in urination or bowel movements. She is not having much vaginal bleeding. MD Complaint: shortness of breath Onset/Timin -: hour(s) Consistency: constant Improves With: nothing Worsens With: lying flat Known History Of: asthma - Related Data Home Medications Medication Instructions Recorded Confirmed Albuterol Nebulized [Ventolin 2.5 mg INHALATION RT-Q6H PRN 03/10/21 10/18/21 Nebulized] Pnv,Calcium 72/Iron/Folic Acid 1 tab PO DAILY 03/27/21 10/18/21 [ Plus Tablet] NIFEdipine XL [Procardia XL] 30 mg PO DAILY 09/26/21 10/18/21 Previous Rx's Medication Instructions Recorded Albuterol Inhaler [Ventolin Hfa 2 puff INHALATION RT-QID PRN #1 12/02/19 Inhaler] inhaler Ferrous Sulfate [Iron (65 MG 325 mg PO BID-W/MEALS #60 tab 10/16/21 Elemental)] Ibuprofen [Motrin] 600 mg PO Q6H PRN #40 tab 10/16/21 Labetalol [Trandate] 100 mg PO BID #60 tab 10/16/21 oxyCODONE HCL [OxyIR] 5 mg PO Q4HR PRN #18 tab 10/16/21 Allergies Allergy/AdvReac Type Severity Reaction Status Date / Time amoxicillin [Amoxicillin] Allergy Anaphylaxis Verified 10/18/21 04:32 Review of Systems ROS Statement: Those systems with pertinent positive or pertinent negative responses have been documented in the HPI. ROS Other: All systems not noted in ROS Statement are negative. Constitutional: Denies: fever, chills, weakness ENT: Denies: congestion Respiratory: Reports: dyspnea, wheezes. Denies: cough, hemoptysis, stridor Cardiovascular: Reports: orthopnea. Denies: chest pain, palpitations, edema, syncope Gastrointestinal: Denies: abdominal pain, vomiting, diarrhea Genitourinary: Denies: dysuria, hematuria Musculoskeletal: Denies: back pain Skin: Denies: rash Neurological: Denies: headache, weakness, numbness Past Medical History Past Medical History: Asthma Additional Past Medical History / Comment(s): Chronic asthma, lung collapse (April 2019), preclampsia History of Any Multi-Drug Resistant Organisms: None Reported Past Surgical History: Section Additional Past Surgical History / Comment(s): [place] tooth extraction Past Anesthesia/Blood Transfusion Reactions: No Reported Reaction Additional Past Anesthesia/Blood Transfusion Reaction / Comment(s): no anesthesia or blood before Past Psychological History: No Psychological Hx Reported Smoking Status: Never smoker Past Alcohol Use History: None Reported Past Drug Use History: None Reported - Past Family History Father Family Medical History: Asthma Mother Family Medical History: No Reported History General Exam Limitations: no limitations General appearance: alert, in no apparent distress Head exam: Present: atraumatic, normocephalic Eye exam: Present: normal appearance. Absent: scleral icterus, conjunctival injection Neck exam: Present: normal inspection Respiratory exam: Present: respiratory distress, wheezes, accessory muscle use, decreased breath sounds, prolonged expiratory. Absent: rales, rhonchi, stridor, chest wall tenderness Cardiovascular Exam: Present: normal rhythm, tachycardia, normal heart sounds. Absent: systolic murmur, diastolic murmur, rubs, gallop GI/Abdominal exam: Present: soft. Absent: distended, tenderness, guarding, re bound, rigid, mass Extremities exam: Present: normal inspection, normal capillary refill. Absent: pedal edema, calf tenderness Back exam: Present: normal inspection Neurological exam: Present: alert Skin exam: Present: warm, dry, intact, normal color. Absent: rash Course Vital Signs 10/18/21 10/18/21 10/18/21 04:29 05:01 05:46 Temperature 100.7 F H Pulse Rate 125 H 126 H Pulse Rate [ Pulse Oximetery ] Respiratory 34 H 32 H Rate Blood Pressure 158/80 Blood Pressure [Left Arm] O2 Sat by Pulse 100 Oximetry 10/18/21 10/18/21 10/18/21 05:56 06:36 07:56 Temperature 99.1 F Pulse Rate 112 H 127 H 124 H Pulse Rate [ Pulse Oximetery ] Respiratory 18 18 Rate Blood Pressure 141/94 Blood Pressure [Left Arm] O2 Sat by Pulse 98 98 Oximetry 10/18/21 10/18/21 10/18/21 09:31 11:15 11:24 Temperature Pulse Rate 112 H 109 H 100 Pulse Rate [ Pulse Oximetery ] Respiratory 18 18 18 Rate Blood Pressure 131/91 Blood Pressure [Left Arm] O2 Sat by Pulse 98 Oximetry 10/18/21 10/18/21 10/18/21 13:08 15:41 15:51 Temperature 98.6 F Pulse Rate 103 H 99 Pulse Rate [ 104 H Pulse Oximetery ] Respiratory 16 Rate Blood Pressure Blood Pressure 126/82 [Left Arm] O2 Sat by Pulse 92 L 99 Oximetry Medical Decision Making - Medical Decision Making This patient is a 26-year-old woman with recent for preeclampsia in here with dyspnea. There does appear to be multiple factors contributing. She is found to have subsegmental right lung pulmonary embolism. She has some wheezing consistent with asthma exacerbation. The patient also had some hypertension and is worked up here for preeclampsia. The patient is started on heparin for the pulmonary embolism. She did receive albuterol for the asthma component. Pending the results of the workup, the patient did receive hydralazine and magnesium. As the studies returned, it does not appear that the preeclampsia is a significant component. The patient is improving with medications. Case is discussed with Dr. Gilbert for admission as the patient has no primary physician. Her registered nurse obstetrics Dr. Fenton is consulted. I discussed the case with gynecology, Dr. Mckenna is covering for Dr. Karimi who had performed a section and they will see the patient as consultants. - Lab Data Result diagrams: 10/18/21 05:29 10/18/21 05:29 Lab Results 10/18/21 10/18/21 10/18/21 Range/Units 05:29 05:29 05:29 WBC 9.0 (3.8-10.6) k/uL RBC 2.87 L (3.80-5.40) m/uL Hgb 9.2 L (11.4-16.0) gm/dL Hct 27.8 L (34.0-46.0) % MCV 97.0 (80.0-100.0) fL MCH 32.2 (25.0-35.0) pg MCHC 33.2 (31.0-37.0) g/dL RDW 13.7 (11.5-15.5) % Plt Count 328 (150-450) k/uL MPV 7.6 Neutrophils % 71 % Lymphocytes % 17 % Monocytes % 6 % Eosinophils % 5 % Basophils % 0 % Neutrophils # 6.4 (1.3-7.7) k/uL Lymphocytes # 1.5 (1.0-4.8) k/uL Monocytes # 0.5 (0-1.0) k/uL Eosinophils # 0.4 (0-0.7) k/uL Basophils # 0.0 (0-0.2) k/uL PT 9.6 (9.0-12.0) sec INR 0.9 (<1.2) APTT 22.4 (22.0-30.0) sec D-Dimer 1.87 H (<0.60) mg/L FEU Sodium 139 (137-145) mmol/L Potassium 4.1 (3.5-5.1) mmol/L Chloride 106 (98-107) mmol/L Carbon Dioxide 25 (22-30) mmol/L Anion Gap 8 mmol/L BUN 6 L (7-17) mg/dL Creatinine 0.48 L (0.52-1.04) mg/dL Est GFR (CKD-EPI)AfAm >90 (>60 ml/min/1.73 sqM) Est GFR (CKD-EPI)NonAf >90 (>60 ml/min/1.73 sqM) Glucose 95 (74-99) mg/dL Plasma Lactic Acid Ariel (0.7-2.0) mmol/L Uric Acid 3.6 L (3.7-7.4) mg/dL Calcium 8.7 (8.4-10.2) mg/dL Magnesium 1.4 L (1.6-2.3) mg/dL Total Bilirubin 0.5 (0.2-1.3) mg/dL AST 27 (14-36) U/L ALT 19 (4-34) U/L Alkaline Phosphatase 110 (38-126) U/L Lactate Dehydrogenase 740 H (313-618) U/L Troponin I (0.000-0.034) ng/mL NT-Pro-B Natriuret Pep pg/mL Total Protein 6.4 (6.3-8.2) g/dL Albumin 3.3 L (3.5-5.0) g/dL Urine Color Urine Appearance (Clear) Urine pH (5.0-8.0) Ur Specific Curtis (1.001-1.035) Urine Protein (Negative) Urine Glucose (UA) (Negative) Urine Ketones (Negative) Urine Blood (Negative) Urine Nitrite (Negative) Urine Bilirubin (Negative) Urine Urobilinogen (<2.0) mg/dL Ur Leukocyte Esterase (Negative) Urine RBC (0-5) /hpf Urine WBC (0-5) /hpf Urine Mucus (None) /hpf Coronavirus (PCR) (Not Detectd) 10/18/21 10/18/21 10/18/21 Range/Units 05:29 05:29 05:29 WBC (3.8-10.6) k/uL RBC (3.80-5.40) m/uL Hgb (11.4-16.0) gm/dL Hct (34.0-46.0) % MCV (80.0-100.0) fL MCH (25.0-35.0) pg MCHC (31.0-37.0) g/dL RDW (11.5-15.5) % Plt Count (150-450) k/uL MPV Neutrophils % % Lymphocytes % % Monocytes % % Eosinophils % % Basophils % % Neutrophils # (1.3-7.7) k/uL Lymphocytes # (1.0-4.8) k/uL Monocytes # (0-1.0) k/uL Eosinophils # (0-0.7) k/uL Basophils # (0-0.2) k/uL PT (9.0-12.0) sec INR (<1.2) APTT (22.0-30.0) sec D-Dimer (<0.60) mg/L FEU Sodium (137-145) mmol/L Potassium (3.5-5.1) mmol/L Chloride (98-107) mmol/L Carbon Dioxide (22-30) mmol/L Anion Gap mmol/L BUN (7-17) mg/dL Creatinine (0.52-1.04) mg/dL Est GFR (CKD-EPI)AfAm (>60 ml/min/1.73 sqM) Est GFR (CKD-EPI)NonAf (>60 ml/min/1.73 sqM) Glucose (74-99) mg/dL Plasma Lactic Acid Ariel 1.4 (0.7-2.0) mmol/L Uric Acid (3.7-7.4) mg/dL Calcium (8.4-10.2) mg/dL Magnesium (1.6-2.3) mg/dL Total Bilirubin (0.2-1.3) mg/dL AST (14-36) U/L ALT (4-34) U/L Alkaline Phosphatase (38-126) U/L Lactate Dehydrogenase (313-618) U/L Troponin I <0.012 (0.000-0.034) ng/mL NT-Pro-B Natriuret Pep 109 pg/mL Total Protein (6.3-8.2) g/dL Albumin (3.5-5.0) g/dL Urine Color Urine Appearance (Clear) Urine pH (5.0-8.0) Ur Specific Curtis (1.001-1.035) Urine Protein (Negative) Urine Glucose (UA) (Negative) Urine Ketones (Negative) Urine Blood (Negative) Urine Nitrite (Negative) Urine Bilirubin (Negative) Urine Urobilinogen (<2.0) mg/dL Ur Leukocyte Esterase (Negative) Urine RBC (0-5) /hpf Urine WBC (0-5) /hpf Urine Mucus (None) /hpf Coronavirus (PCR) (Not Detectd) 10/18/21 10/18/21 Range/Units 05:29 07:14 WBC (3.8-10.6) k/uL RBC (3.80-5.40) m/uL Hgb (11.4-16.0) gm/dL Hct (34.0-46.0) % MCV (80.0-100.0) fL MCH (25.0-35.0) pg MCHC (31.0-37.0) g/dL RDW (11.5-15.5) % Plt Count (150-450) k/uL MPV Neutrophils % % Lymphocytes % % Monocytes % % Eosinophils % % Basophils % % Neutrophils # (1.3-7.7) k/uL Lymphocytes # (1.0-4.8) k/uL Monocytes # (0-1.0) k/uL Eosinophils # (0-0.7) k/uL Basophils # (0-0.2) k/uL PT (9.0-12.0) sec INR (<1.2) APTT (22.0-30.0) sec D-Dimer (<0.60) mg/L FEU Sodium (137-145) mmol/L Potassium (3.5-5.1) mmol/L Chloride (98-107) mmol/L Carbon Dioxide (22-30) mmol/L Anion Gap mmol/L BUN (7-17) mg/dL Creatinine (0.52-1.04) mg/dL Est GFR (CKD-EPI)AfAm (>60 ml/min/1.73 sqM) Est GFR (CKD-EPI)NonAf (>60 ml/min/1.73 sqM) Glucose (74-99) mg/dL Plasma Lactic Acid Ariel (0.7-2.0) mmol/L Uric Acid (3.7-7.4) mg/dL Calcium (8.4-10.2) mg/dL Magnesium (1.6-2.3) mg/dL Total Bilirubin (0.2-1.3) mg/dL AST (14-36) U/L ALT (4-34) U/L Alkaline Phosphatase (38-126) U/L Lactate Dehydrogenase (313-618) U/L Troponin I (0.000-0.034) ng/mL NT-Pro-B Natriuret Pep pg/mL Total Protein (6.3-8.2) g/dL Albumin (3.5-5.0) g/dL Urine Color Light Yellow Urine Appearance Clear (Clear) Urine pH 7.5 (5.0-8.0) Ur Specific Curtis 1.006 (1.001-1.035) Urine Protein Negative (Negative) Urine Glucose (UA) Negative (Negative) Urine Ketones Negative (Negative) Urine Blood Large H (Negative) Urine Nitrite Negative (Negative) Urine Bilirubin Negative (Negative) Urine Urobilinogen <2.0 (<2.0) mg/dL Ur Leukocyte Esterase Trace H (Negative) Urine RBC >182 H (0-5) /hpf Urine WBC 5 (0-5) /hpf Urine Mucus Rare H (None) /hpf Coronavirus (PCR) Not Detected (Not Detectd) Critical Care Time Critical Care Time: Yes (30 minutes) Disposition Clinical Impression: Asthma exacerbation, Dyspnea, Pulmonary embolism Disposition: ADMITTED IP TO THIS HOSP Condition: Good
[2021-10-18] MEDS ORDERED: ACETAMINOPHEN TAB 325 MG TAB PO STA (06:00)
[2021-10-18 06:10] LABS: Basophils % (A) 0 %; Eosinophils # (A) 0.4 k/uL (0-0.7); Eosinophils % (A) 5 %; HCT 27.8 % (34.0-46.0); HGB 9.2 gm/dL (11.4-16.0); Lymphocytes # (A) 1.5 k/uL (1.0-4.8); Lymphocytes % (A) 17 %; MCH 32.2 pg (25.0-35.0); MCHC 33.2 g/dL (31.0-37.0); Mean Platelet Volume 7.6; Monocytes # (A) 0.5 k/uL (0-1.0); Monocytes % (A) 6 %; Neutrophils # (A) 6.4 k/uL (1.3-7.7); Neutrophils % (A) 71 %; Platelet Count 328 k/uL (150-450); RBC 2.87 m/uL (3.80-5.40); RDW 13.7 % (11.5-15.5)
[2021-10-18 06:19] LABS: INR 0.9 (<1.2); Partial Thromboplastin Time 22.4 sec (22.0-30.0); Prothrombin Time 9.6 sec (9.0-12.0)
[2021-10-18 06:20] LABS: ALT 19 U/L (4-34); AST 27 U/L (14-36); African American GFR (CKD) >90 (>60 ml/min/1.73 sqM); Albumin 3.3 g/dL (3.5-5.0); Alkaline Phosphatase 110 U/L (38-126); Anion Gap 8 mmol/L; Blood Urea Nitrogen 6 mg/dL (7-17); Calcium 8.7 mg/dL (8.4-10.2); Carbon Dioxide 25 mmol/L (22-30); Chloride 106 mmol/L (98-107); Glucose 95 mg/dL (74-99); LDH 740 U/L (313-618); Magnesium 1.4 mg/dL (1.6-2.3); Non-African American GFR(CKD) >90 (>60 ml/min/1.73 sqM); Potassium 4.1 mmol/L (3.5-5.1); Sodium 139 mmol/L (137-145); Total Bilirubin 0.5 mg/dL (0.2-1.3); Total Protein 6.4 g/dL (6.3-8.2); Uric Acid 3.6 mg/dL (3.7-7.4)
--- NOTE | 2021-10-18 06:32 | XR ---
EXAMINATION TYPE: XR chest 2V DATE OF EXAM: 10/18/2021 COMPARISON: NONE HISTORY: Short of breath TECHNIQUE: FINDINGS: Heart and mediastinum are normal. Lungs are clear. Diaphragm is normal. Bony thorax appears normal IMPRESSION: Normal chest. No change
[2021-10-18 08:06] LABS: Appearance,Urine Clear (Clear); Bilirubin,Urine Negative (Negative); Blood,Urine Large (Negative); Color,Urine Light Yellow; Glucose,Urine (UA) Negative (Negative); Ketones,Urine Negative (Negative); Leukocyte Esterase,Urine Trace (Negative); Mucus,Urine Rare /hpf; Nitrite,Urine Negative (Negative); PH, Urine 7.5 (5.0-8.0); Protein,Urine Negative (Negative); RBC,Urine >182 /hpf (0-5); Specific Gravity,Urine 1.006 (1.001-1.035); Urobilinogen,Urine <2.0 mg/dL (<2.0); WBC,Urine 5 /hpf (0-5)
--- NOTE | 2021-10-18 08:06 | CT ---
EXAMINATION TYPE: CT chest angio for PE CT DLP: 167.1 mGycm, Automated exposure control for dose reduction was used. DATE OF EXAM: 10/18/2021 7:59 AM COMPARISON: Chest radiograph from same day. Multiple CTs of the chest with most recent on 09/06/2021. CLINICAL INDICATION:Female, 26 years old with history of dyspnea, possible PE; Difficulty breathing, recent , elevated d-dimer TECHNIQUE/CONTRAST: CTA scan of the thorax is performed with IV Contrast, patient injected with 47 mL of Isovue 370, pulm onary embolism protocol. MIP images are created and reviewed. FINDINGS: Pulmonary Artery: There at least 2 filling defect within the right lower lobe subsegmental pulmonary vasculature. No evidence of right heart strain. Pulmonary vasculature to suggest acute pulmonary embo lism. The pulmonary artery is of normal size. Lungs/Pleura: No evidence of focal consolidation, pleural effusion or pneumothorax. Scattered periphe ral reticulation likely representing atelectasis. Airway: Large airways are patent. Heart: Within normal limits for size.. Vasculature: No evidence of aortic aneurysm. Mediastinum: No gross evidence of adenopathy. Musculoskeletal: No acute osseous abnormalities Soft Tissues: Unremarkable. Lower neck: No significant findings. Upper Abdomen: No significant findings. IMPRESSION: Right lower lobe pulmonary emboli without evidence of right heart strain.
[2021-10-18] MEDS: MAGNESIUM SULFATE-D5W PMX 1 GM in DEXTROSE/WATER 1 100ML.BAG IVPB SCH ×2 (08:19→09:18)
[2021-10-18] MEDS ORDERED: HEPARIN SODIUM 1,000 UN/ML (10ML VL) IV ONE (08:47)
[2021-10-18] MEDS ORDERED: MAG HYDROX/AL HYDROX/SIMETH 30 ML CUP PO PRN (08:50)
[2021-10-18] MEDS ORDERED: NALOXONE 0.4 MG/ML 1 ML VIAL IV PRN (08:50)
[2021-10-18] MEDS ORDERED: ALBUTEROL NEBULIZED 2.5 MG/3 ML INHALATION PRN (08:55)
[2021-10-18] MEDS ORDERED: IRON PO SCH (09:00)
[2021-10-18] MEDS ORDERED: PNV CALCIUM PO SCH (09:00)
[2021-10-18] MEDS ORDERED: FOLIC ACID PO SCH (09:00)
[2021-10-18] MEDS ORDERED: [UNRECOGNIZED DRUG - OTHER] PO SCH (09:00)
[2021-10-18] MEDS: HEPARIN SOD,PORK IN 0.45% NACL 25,000 UNIT in 0.45% NACL 1 250ML.BAG IV SCH (09:24)
[2021-10-18] MEDS ORDERED: PRENATAL VIT-IRON-FOLIC ACID 1 EACH CAP PO SCH (10:18)
[2021-10-18] MEDS: ALBUTEROL NEBULIZED 2.5 MG/3 ML INHALATION SCH ×3 (11:17→18:44)
[2021-10-18] MEDS: BUDESONIDE 1 MG/2 ML NEBU INHALATION SCH ×2 (11:17→18:45)
[2021-10-18] MEDS: ALPRAZolam 0.25 MG TAB PO PRN ×2 (12:26→22:49)
[2021-10-18] MEDS: LABETALOL 100 MG TAB PO SCH ×2 (12:43→19:23)
[2021-10-18] MEDS: NIFEdipine XL 30 MG TAB.ER.24 PO SCH (12:43)
--- NOTE | 2021-10-18 13:09 | P.OBCN ---
History of Present Illness Consult date: 10/18/21 Requesting physician: Clint Mcleod Reason for consult: gestational hypertension, other ( pulmonary embolism) Chief complaint: Shortness of breath History of present illness: This is a 26-year-old female 6 para 5 who delivered via emergency C- section by Dr. Karimi 5 days ago due to severe preeclampsia. The patient is a patient of Dr. Majano's [facility] and was seen by his nurse practitioner on her original day of admission and was found to have a very high blood pressure and was sent home with instructions to do a 24-hour urine and get blood work the next day. The patient presented here since it was closer to her home and was found to have severe preeclampsia at that time. She underwent the emergency section and was placed on magnesium sulfate for seizure prophylaxis for 24 hours after delivery. Her blood pressures did normalize ini tially and then started to creep up on postoperative day #2. She was started on labetalol 100 mg twice a day at that time and was discharged home on this medication. The patient states she got home yesterday and then yesterday evening started having a headache. She took her labetalol as directed. Her headache did not go away but she woke up with some shortness of breath and then used her nebulizer. This did not help her headache and she took her blood pressure at home and it was elevated and therefore she came to the emergency room. She was diagnosed with a pulmonary embolism in the emergency room. She is admitted for treatment of the pulmonary embolism and her blood pressure. Please see notes from previous admission in [facility]. Review of Systems Ears, nose, mouth and throat: Reports headache Cardiovascular: Reports chest pain Respiratory: Reports dyspnea Gastrointestinal: Denies abdominal pain Genitourinary: Denies abnormal vaginal bleeding Past Medical History Past Medical History: Asthma, Pulmonary Embolus (PE) Additional Past Medical History / Comment(s): Chronic asthma, lung collapse (April 2019), preclampsia History of Any Multi-Drug Resistant Organisms: None Reported Past Surgical History: Section Additional Past Surgical History / Comment(s): [place] tooth extraction Past Anesthesia/Blood Transfusion Reactions: No Reported Reaction Additional Past Anesthesia/Blood Transfusion Reaction / Comm: no anesthesia or blood before Past Psychological History: No Psychological Hx Reported Additional Psychological History / Comment(s): Pt resides with her 3 children. 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 Smoking Status: Never smoker Past Alcohol Use History: None Reported Past Drug Use History: None Reported - Past Family History Father Family Medical History: Asthma Mother Family Medical History: No Reported History Medications and Allergies Home Medications Medication Instructions Recorded Confirmed Type Albuterol Inhaler [Ventolin Hfa 2 puff INHALATION RT-QID PRN #1 12/02/19 10/18/21 Rx Inhaler] inhaler Albuterol Nebulized [Ventolin 2.5 mg INHALATION RT-Q6H PRN 03/10/21 10/18/21 History Nebulized] Pnv,Calcium 72/Iron/Folic Acid 1 tab PO DAILY 03/27/21 10/18/21 History [ Plus Tablet] NIFEdipine XL [Procardia XL] 30 mg PO DAILY 09/26/21 10/18/21 History Ferrous Sulfate [Iron (65 MG 325 mg PO BID-W/MEALS #60 tab 10/16/21 10/18/21 Rx Elemental)] Ibuprofen [Motrin] 600 mg PO Q6H PRN #40 tab 10/16/21 10/18/21 Rx Labetalol [Trandate] 100 mg PO BID #60 tab 10/16/21 10/18/21 Rx oxyCODONE HCL [OxyIR] 5 mg PO Q4HR PRN #18 tab 10/16/21 10/18/21 Rx Allergies Allergy/AdvReac Type Severity Reaction Status Date / Time amoxicillin [Amoxicillin] Allergy Anaphylaxis Verified 10/18/21 04:32 Exam Osteopathic Statement: *. No significant issues noted on an osteopathic structural exam other than those noted in the History and Physical/Consult. Vital Signs Temp Pulse Resp BP Pulse Ox 10/18/21 11:24 100 18 10/18/21 11:15 109 H 18 10/18/21 09:31 112 H 18 131/91 98 10/18/21 07:56 99.1 F 124 H 18 98 10/18/21 06:36 127 H 18 141/94 98 10/18/21 05:56 112 H 10/18/21 05:46 126 H 10/18/21 05:01 32 H 10/18/21 04:29 100.7 F H 125 H 34 H 158/80 100 Intake and Output 10/17/21 10/18/21 10/18/21 22:59 06:59 14:59 Other: Weight 49.895 kg 49.895 kg Lungs are clear to auscultation bilaterally. - OBG Physical Exam Breast: Breasts are slightly engorged. She is bottle feeding. Abdomen: Incision is clean dry and intact with Steri-Strips in place, nontender Abdomen: bowel sounds normal Results Result Diagrams: 10/18/21 05:29 10/18/21 05:29 Abnormal Lab Results - Last 24 Hours (Table) 10/18/21 10/18/21 10/18/21 Range/Units 05:29 05:29 05:29 RBC 2.87 L (3.80-5.40) m/uL Hgb 9.2 L (11.4-16.0) gm/dL Hct 27.8 L (34.0-46.0) % D-Dimer 1.87 H (<0.60) mg/L FEU BUN 6 L (7-17) mg/dL Creatinine 0.48 L (0.52-1.04) mg/dL Uric Acid 3.6 L (3.7-7.4) mg/dL Magnesium 1.4 L (1.6-2.3) mg/dL Lactate Dehydrogenase 740 H (313-618) U/L Albumin 3.3 L (3.5-5.0) g/dL Urine Blood (Negative) Ur Leukocyte Esterase (Negative) Urine RBC (0-5) /hpf Urine Mucus (None) /hpf 10/18/21 Range/Units 07:14 RBC (3.80-5.40) m/uL Hgb (11.4-16.0) gm/dL Hct (34.0-46.0) % D-Dimer (<0.60) mg/L FEU BUN (7-17) mg/dL Creatinine (0.52-1.04) mg/dL Uric Acid (3.7-7.4) mg/dL Magnesium (1.6-2.3) mg/dL Lactate Dehydrogenase (313-618) U/L Albumin (3.5-5.0) g/dL Urine Blood Large H (Negative) Ur Leukocyte Esterase Trace H (Negative) Urine RBC >182 H (0-5) /hpf Urine Mucus Rare H (None) /hpf CT scan - chest: report reviewed Assessment and Plan (1) pulmonary embolism Current Visit: Yes Status: Acute Code(s): O88.23 - THROMBOEMBOLISM IN THE PUERPERIUM SNOMED Code(s): 833462166 (2) Pulmonary embolism Current Visit: Yes Status: Acute Code(s): I26.99 - OTHER PULMONARY EMBOLISM WITHOUT ACUTE COR PULMONALE SNOMED Code(s): 86931605 Plan: Will restart her postoperative pain medication. She has been taking Tylenol or Motrin and using oxycodone only for severe pain. She is not used any oxycodone since going home. Advised a tight sports bra or ice packs on her breasts for engorgement. Will defer to medicine for treatment of pulmonary embolism and hypertension. Since she is already completed 24 hours of magnesium sulfates seizure prophylaxis after delivery, it is likely not necessary to continue this now. Will follow with you. Patient will need to follow up with Dr. Majano after discharge.
--- NOTE | 2021-10-18 14:09 | US ---
EXAMINATION TYPE: US venous doppler duplex LE DATE OF EXAM: 10/18/2021 1:50 PM COMPARISON: CLINICAL HISTORY: PE. On IV heparin. Emergency csection x 5 days due to high bp. SIDE PERFORMED: Bilateral TECHNIQUE: The lower extremity deep venous system is examined utilizing real time linear array sonog stephanie with graded compression, doppler sonography and color-flow sonography. VESSELS IMAGED: Common Femoral Vein Deep Femoral Vein Greater Saphenous Vein * Femoral Vein Popliteal Vein Small Saphenous Vein * Proximal Calf Veins (* superficial vessels) Grayscale, color doppler, spectral doppler imaging performed of the deep veins of the lower extremiti es. There is normal flow, compressibility, vascular waveforms. Right Leg: Negative for DVT Left Leg: Negative for DVT IMPRESSION: No evidence of DVT of either lower extremity.
[2021-10-18] MEDS: ACETAMINOPHEN TAB 325 MG TAB PO PRN ×2 (14:39→21:13)
--- NOTE | 2021-10-18 14:43 | P.CNPUL ---
History of Present Illness Consult date: 10/18/21 Reason for consult: dyspnea, cough, asthma, pulmonary embolism Chief complaint: Shortness of breath and wheezing History of present illness: This is a 26-year-old female well-known to me she has a chronic intermittent as thma but however have related exacerbation this time she is status post emergency 5 days ago due to preeclampsia, patient will discharge 2 days ago on magnesium as well as labetalol. Overnight patient developed increasing shortness of breath and wheezing dry nonproductive cough decided to come into the hospital for further evaluation, she is being treated with bronchodilators along with inhaled corticosteroids. She had a computed tomography scan of the chest showed right lower lobe subsegmental filling defect likely pulmonary embolism no evidence of right-sided heart strain, patient is started on heparin drip, bilateral duplex ultrasound is negative for deep venous thrombosis Review of Systems All systems: negative Past Medical History Past Medical History: Asthma, Pulmonary Embolus (PE) Additional Past Medical History / Comment(s): Chronic asthma, lung collapse (April 2019), preclampsia History of Any Multi-Drug Resistant Organisms: None Reported Past Surgical History: Section Additional Past Surgical History / Comment(s): [place] tooth extraction Past Anesthesia/Blood Transfusion Reactions: No Reported Reaction Additional Past Anesthesia/Blood Transfusion Reaction / Comment(s): no anesthesia or blood before Past Psychological History: No Psychological Hx Reported Additional Psychological History / Comment(s): Pt resides with her 3 children. 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 Smoking Status: Never smoker Past Alcohol Use History: None Reported Past Drug Use History: None Reported - Past Family History Father Family Medical History: Asthma Mother Family Medical History: No Reported History Medications and Allergies Home Medications Medication Instructions Recorded Confirmed Type Albuterol Inhaler [Ventolin Hfa 2 puff INHALATION RT-QID PRN #1 12/02/19 10/18/21 Rx Inhaler] inhaler Albuterol Nebulized [Ventolin 2.5 mg INHALATION RT-Q6H PRN 03/10/21 10/18/21 History Nebulized] Pnv,Calcium 72/Iron/Folic Acid 1 tab PO DAILY 03/27/21 10/18/21 History [ Plus Tablet] NIFEdipine XL [Procardia XL] 30 mg PO DAILY 09/26/21 10/18/21 History Ferrous Sulfate [Iron (65 MG 325 mg PO BID-W/MEALS #60 tab 10/16/21 10/18/21 Rx Elemental)] Ibuprofen [Motrin] 600 mg PO Q6H PRN #40 tab 10/16/21 10/18/21 Rx Labetalol [Trandate] 100 mg PO BID #60 tab 10/16/21 10/18/21 Rx oxyCODONE HCL [OxyIR] 5 mg PO Q4HR PRN #18 tab 10/16/21 10/18/21 Rx Allergies Allergy/AdvReac Type Severity Reaction Status Date / Time amoxicillin [Amoxicillin] Allergy Anaphylaxis Verified 10/18/21 04:32 Physical Exam Vitals: Vital Signs Temp Pulse Resp BP Pulse Ox 10/18/21 11:24 100 18 10/18/21 11:15 109 H 18 10/18/21 09:31 112 H 18 131/91 98 10/18/21 07:56 99.1 F 124 H 18 98 10/18/21 06:36 127 H 18 141/94 98 10/18/21 05:56 112 H 10/18/21 05:46 126 H 10/18/21 05:01 32 H 10/18/21 04:29 100.7 F H 125 H 34 H 158/80 100 Intake and Output 10/17/21 10/18/21 10/18/21 22:59 06:59 14:59 Intake Total 240 Balance 240 Intake: Oral 240 Other: # Voids 3 Weight 49.895 kg 49.895 kg - Constitutional General appearance: average body habitus, cooperative, disheveled - EENT Eyes: EOMI, PERRLA ENT: normal oropharynx Ears: bilateral: normal - Neck Neck: normal ROM Carotids: bilateral: upstroke normal Thyroid: bilateral: normal size - Respiratory Respiratory: bilateral: wheezing (Bilateral end expiratory) - Cardiovascular Rhythm: regular Heart sounds: normal: S1, S2 - Gastrointestinal General gastrointestinal: soft - Integumentary Integumentary: normal turgor - Neurologic Neurologic: CNII-XII intact - Musculoskeletal Musculoskeletal: gait normal, generalized weakness, strength equal bilaterally - Psychiatric Psychiatric: A&O x's 3, appropriate affect, intact judgment & insight Results - Laboratory Findings CBC and BMP: 10/18/21 05:29 10/18/21 05:29 PT/INR, D-dimer PT 9.6 sec (9.0-12.0) 10/18/21 05:29 INR 0.9 (<1.2) 10/18/21 05:29 D-Dimer 1.87 mg/L FEU (<0.60) H 10/18/21 05:29 Abnormal lab findings: Abnormal Labs 10/18/21 10/18/21 10/18/21 05:29 05:29 05:29 RBC 2.87 L Hgb 9.2 L Hct 27.8 L D-Dimer 1.87 H BUN 6 L Creatinine 0.48 L Uric Acid 3.6 L Magnesium 1.4 L Lactate Dehydrogenase 740 H Albumin 3.3 L Urine Blood Ur Leukocyte Esterase Urine RBC Urine Mucus 10/18/21 07:14 RBC Hgb Hct D-Dimer BUN Creatinine Uric Acid Magnesium Lactate Dehydrogenase Albumin Urine Blood Large H Ur Leukocyte Esterase Trace H Urine RBC >182 H Urine Mucus Rare H - Diagnostic Findings Chest x-ray: report reviewed, image reviewed CT scan - chest: report reviewed, image reviewed (Finding as noted above) Assessment and Plan Assessment: Acute asthma exacerbation related chronic systolic and asthma Acute right-sided pulmonary embolism started on IV heparin Preeclampsia status, status post emergent 5 days ago History of prior intermittent asthma Plan: Continue bronchodilator along with inhaled corticosteroid via nebulizer Continue IV heparin Continue blood pressure medicine Monitor respiratory status closely if continued to have wheezing and no evidence significant improvement consider a short trial of IV steroids Time with Patient: Greater than 30
--- NOTE | 2021-10-18 15:50 | P.CONS ---
History of Present Illness - Reason for Consult Consult date: 10/18/21 Pulmonary Emboli Requesting physician: Clint Mcleod - Chief Complaint SOB - History of Present Illness Nicole is a very pleasant 26 year old mother of 4 (post day 5) with emergency c section for pre-eclampsia. She has had 2 prior c section and denies any history of thrombus, smoking, or familial hx of blood clots. Heparin drip started, she still is having vaginal bleeding. Review of Systems All systems: negative Constitutional: Reports as per HPI Past Medical History Past Medical History: Asthma, Pulmonary Embolus (PE) Additional Past Medical History / Comment(s): Chronic asthma, lung collapse (April 2019), preclampsia History of Any Multi-Drug Resistant Organisms: None Reported Past Surgical History: Section Additional Past Surgical History / Comment(s): [place] tooth extraction Past Anesthesia/Blood Transfusion Reactions: No Reported Reaction Additional Past Anesthesia/Blood Transfusion Reaction / Comm: no anesthesia or blood before Past Psychological History: No Psychological Hx Reported Additional Psychological History / Comment(s): Pt resides with her 3 children. 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 Smoking Status: Never smoker Past Alcohol Use History: None Reported Past Drug Use History: None Reported - Past Family History Father Family Medical History: Asthma Mother Family Medical History: No Reported History Medications and Allergies Home Medications Medication Instructions Recorded Confirmed Type Albuterol Inhaler [Ventolin Hfa 2 puff INHALATION RT-QID PRN #1 12/02/19 10/18/21 Rx Inhaler] inhaler Albuterol Nebulized [Ventolin 2.5 mg INHALATION RT-Q6H PRN 03/10/21 10/18/21 History Nebulized] Pnv,Calcium 72/Iron/Folic Acid 1 tab PO DAILY 03/27/21 10/18/21 History [ Plus Tablet] NIFEdipine XL [Procardia XL] 30 mg PO DAILY 09/26/21 10/18/21 History Ferrous Sulfate [Iron (65 MG 325 mg PO BID-W/MEALS #60 tab 10/16/21 10/18/21 Rx Elemental)] Ibuprofen [Motrin] 600 mg PO Q6H PRN #40 tab 10/16/21 10/18/21 Rx Labetalol [Trandate] 100 mg PO BID #60 tab 10/16/21 10/18/21 Rx oxyCODONE HCL [OxyIR] 5 mg PO Q4HR PRN #18 tab 10/16/21 10/18/21 Rx Allergies Allergy/AdvReac Type Severity Reaction Status Date / Time amoxicillin [Amoxicillin] Allergy Anaphylaxis Verified 10/18/21 04:32 Physical Exam Vitals: Vital Signs Temp Pulse Resp BP Pulse Ox 10/18/21 11:24 100 18 10/18/21 11:15 109 H 18 10/18/21 09:31 112 H 18 131/91 98 10/18/21 07:56 99.1 F 124 H 18 98 10/18/21 06:36 127 H 18 141/94 98 10/18/21 05:56 112 H 10/18/21 05:46 126 H 10/18/21 05:01 32 H 10/18/21 04:29 100.7 F H 125 H 34 H 158/80 100 Intake and Output 10/17/21 10/18/21 10/18/21 22:59 06:59 14:59 Other: Weight 49.895 kg 49.895 kg - Constitutional General appearance: cooperative - EENT Eyes: EOMI, PERRLA ENT: NA/AT - Neck Neck: normal ROM - Respiratory Respiratory: bilateral: CTA - Cardiovascular Rhythm: regular - Gastrointestinal General gastrointestinal: tenderness - Integumentary Integumentary: pale - Neurologic Neurologic: CNII-XII intact - Musculoskeletal Musculoskeletal: generalized weakness, strength equal bilaterally - Psychiatric Psychiatric: A&O x's 3, appropriate affect, intact judgment & insight Results CBC & Chem 7: 10/18/21 05:29 10/18/21 05:29 Labs: Abnormal Lab Results - Last 24 Hours (Table) 10/18/21 10/18/21 10/18/21 Range/Units 05:29 05:29 05:29 RBC 2.87 L (3.80-5.40) m/uL Hgb 9.2 L (11.4-16.0) gm/dL Hct 27.8 L (34.0-46.0) % D-Dimer 1.87 H (<0.60) mg/L FEU BUN 6 L (7-17) mg/dL Creatinine 0.48 L (0.52-1.04) mg/dL Uric Acid 3.6 L (3.7-7.4) mg/dL Magnesium 1.4 L (1.6-2.3) mg/dL Lactate Dehydrogenase 740 H (313-618) U/L Albumin 3.3 L (3.5-5.0) g/dL Urine Blood (Negative) Ur Leukocyte Esterase (Negative) Urine RBC (0-5) /hpf Urine Mucus (None) /hpf 10/18/21 Range/Units 07:14 RBC (3.80-5.40) m/uL Hgb (11.4-16.0) gm/dL Hct (34.0-46.0) % D-Dimer (<0.60) mg/L FEU BUN (7-17) mg/dL Creatinine (0.52-1.04) mg/dL Uric Acid (3.7-7.4) mg/dL Magnesium (1.6-2.3) mg/dL Lactate Dehydrogenase (313-618) U/L Albumin (3.5-5.0) g/dL Urine Blood Large H (Negative) Ur Leukocyte Esterase Trace H (Negative) Urine RBC >182 H (0-5) /hpf Urine Mucus Rare H (None) /hpf CT scan - chest: report reviewed Assessment and Plan (1) pulmonary embolism Current Visit: Yes Status: Acute Code(s): O88.23 - THROMBOEMBOLISM IN THE PUERPERIUM SNOMED Code(s): 708475572 Plan: Will check Iron Studies and replace if indictated COntinue Heparin drip or convert to DOAC, she is formula feeding. 6 months AC therapy recommended for provoked PE, check BLE doppler
[2021-10-18] MEDS: SODIUM CHLORIDE 0.9% 1,000 ML IV SCH (15:53)
[2021-10-18] MEDS: PRENATAL VIT-IRON-FOLIC ACID 1 EACH CAP PO SCH (15:53)
[2021-10-18] MEDS: FERROUS SULFATE 325 MG TAB PO SCH (15:53)
[2021-10-18] MEDS: PANTOPRAZOLE 40 MG TABLET PO SCH (16:57)
[2021-10-18] MEDS: methylPREDNISolone SOD SUCCI 40 MG/ML 1 ML VIAL IV SCH (16:57)
[2021-10-18] MEDS: HEPARIN SODIUM 1,000 UN/ML (10ML VL) IV PRN ×2 (17:09→22:48)
--- NOTE | 2021-10-18 17:22 | HP ---
HISTORY AND PHYSICAL CHIEF COMPLAINT: Shortness of breath. HISTORY OF PRESENT ILLNESS: This 26-year-old woman with a past medical history of asthma had a recent section by Dr. Karimi. The patient went home and the patient had increasing shortness of breath. The patient came to [facility] and was admitted for further evaluation and treatment. A CT angio showed evidence of right pulmonary embolism. The patient has been started on IV heparin. Multiple consultants are following the patient closely. There is no history of any fever, rigors or chills. No history of headache, loss of consciousness, seizures. PAST MEDICAL HISTORY: Recent section. History of asthma. HOME MEDICATIONS: Reviewed. They include oxycodone and Procardia XL. Doses and other medications are reviewed. ALLERGIES: AMOXICILLIN. FAMILY HISTORY: History of asthma in the family. SOCIAL HISTORY: No history of smoking. REVIEW OF SYSTEM: Fourteen-point review of systems negative except as mentioned earlier. PHYSICAL EXAMINATION: Pulse is 103, blood pressure 126/82, respirations 16. HEENT: Conjunctivae normal. NECK: No jugular venous distention. Breathing efforts are markedly increased. CARDIOVASCULAR: S1, S2 muffled. RESPIRATION: Bilateral scattered rhonchi and expiratory wheezing and crackles. ABDOMEN: Soft. Mild diffuse distention. Status post recent section. LEGS: No edema. No swelling. NERVOUS SYSTEM: Higher functions as mentioned earlier. Moves all 4 limbs. No focal motor or sensory deficit. SKIN: No ulcer, rash, bleeding. JOINTS: No active deforming arthropathy. LABS: Hemoglobin 9.2. Other labs are noted. ASSESSMENT: 1. Shortness of breath, multifactorial; possible acute pulmonary embolism. 2. Bronchial asthma, acute exacerbation. 3. Recent section. 4. History of lung collapse. 5. History of preeclampsia and gestational hypertension. RECOMMENDATIONS AND DISCUSSION: In this 26-year-old woman who presented with multiple complex medical issues, we will monitor the patient closely. Treat the patient with intensive bronchodilator treatment, IV steroids. Closely follow with Pulmonary. IV heparin. Hematology/oncology consultation. Guarded prognosis because of multiple complex medical issues. Further recommendations to follow. Dr. Gilbert will follow tomorrow. MMODL / AMNAN: [id number] /
[2021-10-18] MEDS: IBUPROFEN 600 MG TAB PO PRN (19:23)
[2021-10-18 23:08] LABS: % Iron Saturation 6.89 (12.00-45.00)
[2021-10-19] MEDS: methylPREDNISolone SOD SUCCI 40 MG/ML 1 ML VIAL IV SCH ×4 (00:13→22:58)
[2021-10-19 08:50] LABS: Potassium 4.7 mmol/L (3.5-5.1)
[2021-10-19 08:51] LABS: African American GFR (CKD) >90 (>60 ml/min/1.73 sqM); Anion Gap 8 mmol/L; Blood Urea Nitrogen 9 mg/dL (7-17); Calcium 8.9 mg/dL (8.4-10.2); Carbon Dioxide 20 mmol/L (22-30); Chloride 108 mmol/L (98-107); Glucose 136 mg/dL (74-99); Non-African American GFR(CKD) >90 (>60 ml/min/1.73 sqM); Sodium 136 mmol/L (137-145)
[2021-10-19 09:06] LABS: Basophils % (A) 0 %; Eosinophils % (A) 0 %; HCT 30.1 % (34.0-46.0); HGB 9.4 gm/dL (11.4-16.0); Hypochromasia Slight; Lymphocytes # (A) 1.3 k/uL (1.0-4.8); Lymphocytes % (A) 13 %; MCH 31.6 pg (25.0-35.0); MCHC 31.1 g/dL (31.0-37.0); MCV 101.7 fL (80.0-100.0); Macrocytosis Slight; Mean Platelet Volume 8.4; Monocytes # (A) 0.3 k/uL (0-1.0); Monocytes % (A) 3 %; Neutrophils # (A) 7.9 k/uL (1.3-7.7); Neutrophils % (A) 82 %; Platelet Count 450 k/uL (150-450); RBC 2.96 m/uL (3.80-5.40); RDW 13.6 % (11.5-15.5); WBC 9.6 k/uL (3.8-10.6)
--- NOTE | 2021-10-19 12:08 | P.PN ---
Subjective Progress Note Date: 10/19/21 Principal diagnosis: Acute asthma exacerbation related chronic systolic and asthma Acute right-sided pulmonary embolism started on IV heparin Preeclampsia status, status post emergent 5 days ago History of prior intermittent asthma 10/19/2021, patient seen eval reexamined during the rounds labs reviewed medications reviewed care plan discussed, patient is still short of breath have intermittent wheezing specially on exertion and forced breathing, she has been started on IV steroids tolerating well she is slightly better compared to yester day exam, patient remains on IV heparin, will check with SLABBING MACHINE OPERATOR if patient can be initiated on direct oral anticoagulant with Eliquis 5 mg twice a day and after first dose heparin can be discontinued This is a 26-year-old female well-known to me she has a chronic intermittent asthma but however have related exacerbation this time she is status post emergency 5 days ago due to preeclampsia, patient will discharge 2 days ago on magnesium as well as labetalol. Overnight patient developed increasing shortness of breath and wheezing dry nonproductive cough decided to come into the hospital for further evaluation, she is being treated with bronchodilators along with inhaled corticosteroids. She had a computed tomography scan of the chest showed right lower lobe subsegmental filling defect likely pulmonary embolism no evidence of right-sided heart strain, patient is started on heparin drip, bilateral duplex ultrasound is negative for deep venous thrombosis Objective - Vital Signs Vital signs: Vital Signs Temp 97.9 F 10/19/21 04:41 Pulse 88 10/19/21 04:41 Resp 18 10/19/21 04:41 BP 120/74 10/19/21 04:41 Pulse Ox 95 10/19/21 04:41 Intake & Output 10/18/21 10/19/21 10/19/21 18:59 06:59 18:59 Intake Total 934.485 73.179 Balance 934.485 73.179 Weight 49.895 kg Intake: Intake, IV Titration 214.485 73.179 Amount Heparin Sod,Pork in 0.45% 54.485 73.179 NaCl 25,000 unit In 0.45 % NaCl 1 250ml.bag @ 18 UNITS/KG/HR 8.981 mls/hr IV .Q24H [facility] Rx#: [id number] Sodium Chloride 0.9% 1, 160 000 ml @ 20 mls/hr IV . Q24H [facility] Rx#:[id number] Oral 720 Other: Voiding Method Toilet # Voids 3 5 - Exam - Constitutional General appearance: average body habitus, cooperative, disheveled - EENT Eyes: EOMI, PERRLA ENT: normal oropharynx Ears: bilateral: normal - Neck Neck: normal ROM Carotids: bilateral: upstroke normal Thyroid: bilateral: normal size - Respiratory Respiratory: bilateral: wheezing (Bilateral end expiratory) - Cardiovascular Rhythm: regular Heart sounds: normal: S1, S2 - Gastrointestinal General gastrointestinal: soft - Integumentary Integumentary: normal turgor - Neurologic Neurologic: CNII-XII intact - Musculoskeletal Musculoskeletal: gait normal, generalized weakness, strength equal bilaterally - Psychiatric Psychiatric: A&O x's 3, appropriate affect, intact judgment & insight - Labs CBC & Chem 7: 10/19/21 06:30 10/19/21 06:23 Labs: Abnormal Lab Results - Last 24 Hours (Table) 10/18/21 10/18/21 10/18/21 Range/Units 14:29 14:29 21:33 RBC (3.80-5.40) m/uL Hgb (11.4-16.0) gm/dL Hct (34.0-46.0) % MCV (80.0-100.0) fL Neutrophils # (1.3-7.7) k/uL APTT 38.1 H 36.3 H (22.0-30.0) sec Sodium (137-145) mmol/L Chloride (98-107) mmol/L Carbon Dioxide (22-30) mmol/L Creatinine (0.52-1.04) mg/dL Glucose (74-99) mg/dL Iron 22 L (50-170) ug/dL % Saturation 6.89 L (12.00-45.00) 10/19/21 10/19/21 10/19/21 Range/Units 06:23 06:30 06:30 RBC 2.96 L (3.80-5.40) m/uL Hgb 9.4 L (11.4-16.0) gm/dL Hct 30.1 L (34.0-46.0) % MCV 101.7 H (80.0-100.0) fL Neutrophils # 7.9 H (1.3-7.7) k/uL APTT 44.0 H (22.0-30.0) sec Sodium 136 L (137-145) mmol/L Chloride 108 H (98-107) mmol/L Carbon Dioxide 20 L (22-30) mmol/L Creatinine 0.45 L (0.52-1.04) mg/dL Glucose 136 H (74-99) mg/dL Iron (50-170) ug/dL % Saturation (12.00-45.00) Microbiology - Last 24 Hours (Table) 10/18/21 05:29 Blood Culture - Preliminary Blood No Growth after 24 hours Assessment and Plan Assessment: Acute asthma exacerbation related chronic systolic and asthma Acute right-sided pulmonary embolism started on IV heparin Preeclampsia status, status post emergent 5 days ago History of prior intermittent asthma Plan: Continue bronchodilator along with inhaled corticosteroid via nebulizer Continue IV heparin Start patient on direct oral anticoagulant with Eliquis 5 mg twice a day Continue blood pressure medicine Continue short trial of IV steroids Time with Patient: Greater than 30
[2021-10-19] MEDS: HEPARIN SOD,PORK IN 0.45% NACL 25,000 UNIT in 0.45% NACL 1 250ML.BAG IV SCH (12:30)
[2021-10-19] MEDS: FERROUS SULFATE 325 MG TAB PO SCH ×2 (12:58→16:48)
[2021-10-19] MEDS: LABETALOL 100 MG TAB PO SCH ×2 (12:59→20:09)
[2021-10-19] MEDS: NIFEdipine XL 30 MG TAB.ER.24 PO SCH (12:59)
[2021-10-19] MEDS: PRENATAL VIT-IRON-FOLIC ACID 1 EACH CAP PO SCH (12:59)
[2021-10-19] MEDS: PANTOPRAZOLE 40 MG TABLET PO SCH (12:59)
[2021-10-19] MEDS: SODIUM CHLORIDE 0.9% 1,000 ML IV SCH (13:02)
[2021-10-19] MEDS: ALBUTEROL NEBULIZED 2.5 MG/3 ML INHALATION SCH ×3 (15:15→20:10)
[2021-10-19] MEDS: BUDESONIDE 1 MG/2 ML NEBU INHALATION SCH ×2 (15:15→20:12)
--- NOTE | 2021-10-19 17:10 | P.PN ---
Subjective Progress Note Date: 10/19/21 She is doing well on heparin, no increase rather improved vaginal bleeding. Planning to switch to DOAC today Objective - Vital Signs Vital signs: Vital Signs Temp 98.3 F 10/19/21 12:50 Pulse 87 10/19/21 16:01 Resp 18 10/19/21 12:50 BP 143/82 10/19/21 12:50 Pulse Ox 98 10/19/21 12:50 Intake & Output 10/18/21 10/19/21 10/19/21 18:59 06:59 18:59 Intake Total 934.485 73.179 122.336 Balance 934.485 73.179 122.336 Weight 49.895 kg Intake: Intake, IV Titration 214.485 73.179 122.336 Amount Heparin Sod,Pork in 0.45% 54.485 73.179 122.336 NaCl 25,000 unit In 0.45 % NaCl 1 250ml.bag @ 18 UNITS/KG/HR 8.981 mls/hr IV .Q24H [facility] Rx#: [id number] Sodium Chloride 0.9% 1, 160 000 ml @ 20 mls/hr IV . Q24H [facility] Rx#:[id number] Oral 720 Other: Voiding Method Toilet Toilet # Voids 3 5 - Exam - Constitutional General appearance: cooperative - EENT Eyes: EOMI, PERRLA ENT: NA/AT - Neck Neck: normal ROM - Respiratory Respiratory: bilateral: CTA - Cardiovascular Rhythm: regular - Gastrointestinal General gastrointestinal: tenderness - Integumentary Integumentary: pale - Neurologic Neurologic: CNII-XII intact - Musculoskeletal Musculoskeletal: generalized weakness, strength equal bilaterally - Psychiatric Psychiatric: A&O x's 3, appropriate affect, intact judgment & insight - Labs CBC & Chem 7: 10/19/21 06:30 10/19/21 06:23 Labs: Abnormal Lab Results - Last 24 Hours (Table) 10/18/21 10/18/21 10/19/21 Range/Units 14:29 21:33 06:23 RBC (3.80-5.40) m/uL Hgb (11.4-16.0) gm/dL Hct (34.0-46.0) % MCV (80.0-100.0) fL Neutrophils # (1.3-7.7) k/uL APTT 36.3 H (22.0-30.0) sec Sodium 136 L (137-145) mmol/L Chloride 108 H (98-107) mmol/L Carbon Dioxide 20 L (22-30) mmol/L Creatinine 0.45 L (0.52-1.04) mg/dL Glucose 136 H (74-99) mg/dL Iron 22 L (50-170) ug/dL % Saturation 6.89 L (12.00-45.00) 10/19/21 10/19/21 Range/Units 06:30 06:30 RBC 2.96 L (3.80-5.40) m/uL Hgb 9.4 L (11.4-16.0) gm/dL Hct 30.1 L (34.0-46.0) % MCV 101.7 H (80.0-100.0) fL Neutrophils # 7.9 H (1.3-7.7) k/uL APTT 44.0 H (22.0-30.0) sec Sodium (137-145) mmol/L Chloride (98-107) mmol/L Carbon Dioxide (22-30) mmol/L Creatinine (0.52-1.04) mg/dL Glucose (74-99) mg/dL Iron (50-170) ug/dL % Saturation (12.00-45.00) Microbiology - Last 24 Hours (Table) 10/18/21 05:29 Blood Culture - Preliminary Blood No Growth after 24 hours Assessment and Plan (1) pulmonary embolism Current Visit: Yes Status: Acute Code(s): O88.23 - THROMBOEMBOLISM IN THE PUERPERIUM SNOMED Code(s): 748864846 Plan: Will check Iron Studies and replace if indictated DC Heparin drip or convert to DOAC, she is formula feeding. 6 months AC therapy recommended for provoked PE, check BLE doppler Dr. Cortes: I have completed the full history and physical and developed the above impression and plan, agree with dictation, dictated as a scribe
[2021-10-19] MEDS: APIXABAN 5 MG TAB PO SCH (20:09)
[2021-10-19] MEDS: IBUPROFEN 600 MG TAB PO PRN (20:09)
[2021-10-19] MEDS: ALPRAZolam 0.25 MG TAB PO PRN (22:58)
[2021-10-20] MEDS: ALBUTEROL NEBULIZED 2.5 MG/3 ML INHALATION SCH ×3 (07:37→15:49)
[2021-10-20] MEDS: BUDESONIDE 1 MG/2 ML NEBU INHALATION SCH (07:37)
[2021-10-20] MEDS: LABETALOL 100 MG TAB PO SCH (09:51)
[2021-10-20] MEDS: APIXABAN 5 MG TAB PO SCH (09:52)
[2021-10-20] MEDS: NIFEdipine XL 30 MG TAB.ER.24 PO SCH (09:52)
[2021-10-20] MEDS: PRENATAL VIT-IRON-FOLIC ACID 1 EACH CAP PO SCH (09:52)
[2021-10-20] MEDS: FERROUS SULFATE 325 MG TAB PO SCH (09:52)
[2021-10-20] MEDS: methylPREDNISolone SOD SUCCI 40 MG/ML 1 ML VIAL IV SCH (09:52)
[2021-10-20] MEDS: PANTOPRAZOLE 40 MG TABLET PO SCH (09:52)
--- NOTE | 2021-10-20 09:52 | PN ---
PROGRESS NOTE This 26-year-old black female is status post 3 weeks ago pulmonary embolism and asthma, started on Eliquis today. She will be kept in the hospital. Her breathing has improved. Will continue with Eliquis and discontinue heparin. Cardiovascular S1, S2. Lungs clear. GI soft. Hematology negative Homans. ASSESSMENT: Pulmonary embolism acute asthma. Breathing greatly improved. Continue with Eliquis. Discontinue heparin. Possible discharge home in the morning. MMODL / IJN: [id number] /
[2021-10-20] MEDS: ACETAMINOPHEN TAB 325 MG TAB PO PRN (11:27)
[2021-10-20] MEDS ORDERED: SODIUM FERRIC GLUCONAT-SUCROSE 125 MG in SODIUM CHLORIDE 0.9% 100 ML IVPB ONE (12:42)
[2021-10-20 12:53] VITALS: BP 146/88; PULSE 83; RESP 17; TEMP 98.3
--- NOTE | 2021-10-20 12:53 | P.PN ---
Progress Note - Text Progress Note Date: 10/20/21 Patient is doing fairly well today. She denies any pain in her abdomen. Bleeding has been minimal. She states her breathing is much better. I will sign off on her at this point. She is to follow-up with Dr. 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 Please call if there are any further questions.
--- NOTE | 2021-10-20 14:43 | P.PN ---
Subjective Progress Note Date: 10/20/21 Principal diagnosis: PE, iron deficient anemia In follow-up today patient is denying any unusual bleeding, no fevers, chest pain, cough, hemoptysis, she was started on oral anticoagulant, no complaints. Objective - Vital Signs Vital signs: Vital Signs Temp 98.3 F 10/20/21 12:53 Pulse 83 10/20/21 12:53 Resp 17 10/20/21 12:53 BP 146/88 10/20/21 12:53 Pulse Ox 98 10/20/21 12:53 Intake & Output 10/19/21 10/20/21 10/20/21 18:59 06:59 18:59 Intake Total 902.336 200 Balance 902.336 200 Intake: Intake, IV Titration 122.336 200 Amount Heparin Sod,Pork in 0.45% 122.336 NaCl 25,000 unit In 0.45 % NaCl 1 250ml.bag @ 18 UNITS/KG/HR 8.981 mls/hr IV .Q24H [facility] Rx#: [id number] Sodium Chloride 0.9% 1, 200 000 ml @ 20 mls/hr IV . Q24H [facility] Rx#:[id number] Oral 780 Other: Voiding Method Toilet Toilet Toilet # Voids 2 4 4 - Constitutional General appearance: Present: cooperative, no acute distress, thin - EENT Eyes: Present: anicteric sclerae, EOMI - Respiratory Details: Respirations even and unlabored at rest - Neurologic Neurologic: Present: CNII-XII intact - Musculoskeletal Musculoskeletal: Present: strength equal bilaterally - Psychiatric Psychiatric: Present: A&O x's 3, appropriate affect, intact judgment & insight - Labs CBC & Chem 7: 10/19/21 06:30 10/19/21 06:23 Labs: Microbiology - Last 24 Hours (Table) 10/18/21 05:29 Blood Culture - Preliminary Blood No Growth after 48 hours Assessment and Plan (1) pulmonary embolism Current Visit: Yes Status: Acute Priority: High Code(s): O88.23 - THROMBOEMBOLISM IN THE PUERPERIUM SNOMED Code(s): 824846990 (2) Iron deficiency anemia Current Visit: Yes Status: Chronic Priority: Medium Code(s): D50.9 - IRON DEFICIENCY ANEMIA, UNSPECIFIED SNOMED Code(s): 61722749 Plan: Oral anticoagulant eliquis was confirmed by Rock Dust Sprayer at a $0 co-pay. Patient has been started on a loading dose. Plan is to continue anticoagulation for 6 months for unprovoked PE. Lab work showing iron deficiency. One dose of parenteral iron will be given while inpatient. Will plan to complete a series of parenteral iron then recheck iron studies. Once iron storage adequate, oral iron can be continued at that time. All of the above was discussed with patient. She verbalized understanding the plan. We will give patient a follow-up appointment and contact her without when available.
[2021-10-20] MEDS ORDERED: methylPREDNISolone 4 MG TAB TAPER PO SCH (16:15)
--- NOTE | 2021-10-20 17:19 | P.PN ---
Subjective Progress Note Date: 10/20/21 Principal diagnosis: Acute asthma exacerbation related chronic systolic and asthma Acute right-sided pulmonary embolism started on IV heparin Preeclampsia status, status post emergent 5 days ago History of prior intermittent asthma 10/20/2021, patient seen eval examined during the rounds labs reviewed medications reviewed care discussed, patient is now off of heparin drip has been started on direct oral anticoagulant, off of IV steroids has been started on Medrol Dosepak, blood pressure has been stable, but wheezing cuff congestion slightly improved 10/19/2021, patient seen eval reexamined during the rounds labs reviewed medications reviewed care plan discussed, patient is still short of breath have intermittent wheezing specially on exertion and forced breathing, she has been started on IV steroids tolerating well she is slightly better compared to yesterday exam, patient remains on IV heparin, will check with CLINICAL STAFF RN if patient can be initiated on direct oral anticoagulant with Eliquis 5 mg twice a day and after first dose heparin can be discontinued This is a 26-year-old female well-known to me she has a chronic intermittent asthma but however have related exacerbation this time she is status post emergency 5 days ago due to preeclampsia, patient will discharge 2 days ago on magnesium as well as labetalol. Overnight patient developed increasing shortness of breath and wheezing dry nonproductive cough decided to come into the hospital for further evaluation, she is being treated with bronchodilators along with inhaled corticosteroids. She had a computed tomography scan of the chest showed right lower lobe subsegmental filling defect likely pulmonary embolism no evidence of right-sided heart strain, patient is started on heparin drip, bilateral duplex ultrasound is negative for deep venous thrombosis Objective - Vital Signs Vital signs: Vital Signs Temp 98.3 F 10/20/21 12:53 Pulse 83 10/20/21 12:53 Resp 17 10/20/21 12:53 BP 146/88 10/20/21 12:53 Pulse Ox 98 10/20/21 12:53 Intake & Output 10/19/21 10/20/21 10/20/21 18:59 06:59 18:59 Intake Total 902.336 200 Balance 902.336 200 Intake: Intake, IV Titration 122.336 200 Amount Heparin Sod,Pork in 0.45% 122.336 NaCl 25,000 unit In 0.45 % NaCl 1 250ml.bag @ 18 UNITS/KG/HR 8.981 mls/hr IV .Q24H [facility] Rx#: [id number] Sodium Chloride 0.9% 1, 200 000 ml @ 20 mls/hr IV . Q24H [facility] Rx#:[id number] Oral 780 Other: Voiding Method Toilet Toilet Toilet # Voids 2 4 4 - Exam - Constitutional General appearance: average body habitus, cooperative, disheveled - EENT Eyes: EOMI, PERRLA ENT: normal oropharynx Ears: bilateral: normal - Neck Neck: normal ROM Carotids: bilateral: upstroke normal Thyroid: bilateral: normal size - Respiratory Respiratory: bilateral: wheezing (Bilateral end expiratory) - Cardiovascular Rhythm: regular Heart sounds: normal: S1, S2 - Gastrointestinal General gastrointestinal: soft - Integumentary Integumentary: normal turgor - Neurologic Neurologic: CNII-XII intact - Musculoskeletal Musculoskeletal: gait normal, generalized weakness, strength equal bilaterally - Psychiatric Psychiatric: A&O x's 3, appropriate affect, intact judgment & insight - Labs CBC & Chem 7: 10/19/21 06:30 10/19/21 06:23 Labs: Microbiology - Last 24 Hours (Table) 10/18/21 05:29 Blood Culture - Preliminary Blood No Growth after 48 hours Assessment and Plan Assessment: Acute asthma exacerbation related chronic systolic and asthma Acute right-sided pulmonary embolism started on IV heparin Preeclampsia status, status post emergent 5 days ago History of prior intermittent asthma Plan: Continue bronchodilator along with inhaled corticosteroid via nebulizer On direct oral anticoagulant off of IV heparin Continue blood pressure medicine Patient has been started on oral Medrol Dosepak tolerating well Time with Patient: Greater than 30
== END 2021-10-20 18:25 | disposition home or self-care (01) | DRG 776 ==
LOC: EC 04:19 → 5NMEDONC 08:50
PROVIDERS: ADMIT Family Medicine; ATTEND Family Medicine
DX: O14.15 Severe pre-eclampsia, complicating the puerperium (principal); I26.99 Other pulmonary embolism without acute cor pulmonale; J45.21 Mild intermittent asthma with (acute) exacerbation; O10.93 Unspecified pre-existing hypertension complicating the puerperium; O88.23 Thromboembolism in the puerperium; O99.53 Diseases of the respiratory system complicating the puerperium; Z20.822 Contact with and (suspected) exposure to COVID-19; D53.9 Nutritional anemia, unspecified; D50.9 Iron deficiency anemia, unspecified; O90.81 Anemia of the puerperium; Z86.711 Personal history of pulmonary embolism; Z79.899 Other long term (current) drug therapy; Z82.5 Family history of asthma and other chronic lower respiratory diseases; Z88.1 Allergy status to other antibiotic agents
CPT/HCPCS: 36415; 71046; 71275; 80048; 80053; 81001; 83540; 83550; 83605; 83615; 83735; 83880; 84484; 84550; 85025; 85379; 85610; 85730; 87040; 87635; 93005; 93970; 94640; 96365; 96375; 99291

== ENCOUNTER 2021-10-26 20:18 | Emergency (ER) | payer OTHER ==
[2021-10-26 20:47] VITALS: BP 151/87; PULSE 96; RESP 18; TEMP 98.9
--- NOTE | 2021-10-26 22:14 | ED ---
General Adult HPI - General Chief complaint: Chest Pain Stated complaint: Chest pain, Light headed, Pulmonary Embolism Time Seen by Provider: 10/26/21 22:00 Source: patient, RN notes reviewed, old records reviewed Mode of arrival: ambulatory Limitations: no limitations - History of Present Illness Initial comments: This is a well-appearing 26-year-old female that presents to the emergency room with complaints of left upper back pain for one day. She describes the pain as tight like muscle pain and can feel it more with certain movements. She states she was diagnosed with a pulmonary embolism right after 10/18/2021. She denies any cough , no chest pain or difficulty in breathing. She does have a history of asthma. She states that she is currently taking eliquis and blood pressure medications. She is a nonsmoker, she states she is not breast-feeding. -: days(s) (1) Location: back (left upper) Radiation: non-radiation Severity scale (1-10): 8 Quality: aching Improves with: none Worsens with: none Associated Symptoms: denies other symptoms - Related Data Home Medications Medication Instructions Recorded Confirmed Albuterol Nebulized [Ventolin 2.5 mg INHALATION RT-Q6H PRN 03/10/21 10/26/21 Nebulized] Pnv,Calcium 72/Iron/Folic Acid 1 tab PO DAILY 03/27/21 10/26/21 [ Plus Tablet] NIFEdipine XL [Procardia XL] 30 mg PO DAILY 09/26/21 10/26/21 methylPREDNISolone Dose Pack See Taper PO DIRECTED 10/26/21 10/26/21 [Medrol Dose Pack] Previous Rx's Medication Instructions Recorded Albuterol Inhaler [Ventolin Hfa 2 puff INHALATION RT-QID PRN #1 12/02/19 Inhaler] inhaler Ferrous Sulfate [Iron (65 MG 325 mg PO BID-W/MEALS #60 tab 10/16/21 Elemental)] Ibuprofen [Motrin] 600 mg PO Q6H PRN #40 tab 10/16/21 Labetalol [Trandate] 100 mg PO BID #60 tab 10/16/21 oxyCODONE HCL [OxyIR] 5 mg PO Q4HR PRN #18 tab 10/16/21 Apixaban [Eliquis] 10 mg PO BID 30 Days #60 tab 10/20/21 Allergies Allergy/AdvReac Type Severity Reaction Status Date / Time amoxicillin [Amoxicillin] Allergy Anaphylaxis Verified 10/26/21 22:27 Review of Systems ROS Statement: Those systems with pertinent positive or pertinent negative responses have been documented in the HPI. ROS Other: All systems not noted in ROS Statement are negative. Past Medical History Past Medical History: Asthma Additional Past Medical History / Comment(s): Chronic asthma, lung collapse (April 2019), preclampsia History of Any Multi-Drug Resistant Organisms: None Reported Past Surgical History: Section Additional Past Surgical History / Comment(s): [place] tooth extraction Past Anesthesia/Blood Transfusion Reactions: No Reported Reaction Additional Past Anesthesia/Blood Transfusion Reaction / Comment(s): no anesthesia or blood before Past Psychological History: No Psychological Hx Reported Smoking Status: Never smoker Past Alcohol Use History: None Reported Past Drug Use History: None Reported - Past Family History Father Family Medical History: Asthma Mother Family Medical History: No Reported History General Exam Limitations: no limitations General appearance: alert, in no apparent distress Head exam: Present: atraumatic, normocephalic, normal inspection Eye exam: Present: normal appearance, PERRL, EOMI. Absent: scleral icterus, conjunctival injection, periorbital swelling ENT exam: Present: normal exam, mucous membranes moist Neck exam: Present: normal inspection, full ROM. Absent: tenderness, meningismus Respiratory exam: Present: normal lung sounds bilaterally. Absent: respiratory distress, accessory muscle use, decreased breath sounds Cardiovascular Exam: Present: regular rate, normal rhythm GI/Abdominal exam: Present: soft, other ( scar well-appearing no evidence of erythema or exudate or bleeding). Absent: distended, tenderness Extremities exam: Present: normal inspection, full ROM, normal capillary refill. Absent: tenderness, pedal edema Back exam: Present: normal inspection, full ROM. Absent: tenderness, CVA tenderness (R), CVA tenderness (L), rash noted Neurological exam: Present: alert, oriented X3 Psychiatric exam: Present: normal affect, normal mood Skin exam: Present: warm, dry, normal color. Absent: cyanosis, diaphoretic, erythema, petechiae, pallor, mottled Course Vital Signs 10/26/21 20:46 Temperature 98.9 F Pulse Rate 96 Respiratory 18 Rate Blood Pressure 151/87 O2 Sat by Pulse 98 Oximetry EKG Findings - EKG Results: EKG: sinus rhythm (Ventricular rate 82, MS interval 0.174, QRS 0.89, QTC 0.397) Medical Decision Making - Medical Decision Making X-ray shows no acute cardiopulmonary disease. Troponin is negative at 0.012, EKG shows no ST elevation or changes. Hemoglobin is improved and stable at 10.8 and electrolytes are unremarkable. Vital signs are stable and lungs are clear to auscultation, oxygen saturation is 98% on room air. Patient's symptoms are consistent with musculoskeletal pain. She was directed to increase her fluid intake, Tylenol as needed for any pain. She states she has an appointment with her mill crane operator tomorrow. She was directed to return to the emergency room with any new or concerning symptoms especially chest pain, shortness of breath or difficulty in breathing. Continue taking eliquis as prescribed Patient is agreeable to being discharged home. Case discussed with Dr. Guo - Lab Data Result diagrams: 10/26/21 23:09 10/26/21 23:09 Lab Results 10/26/21 10/26/21 10/26/21 Range/Units 23:09 23:09 23:09 WBC 11.6 H (3.8-10.6) k/uL RBC 3.54 L (3.80-5.40) m/uL Hgb 10.8 L (11.4-16.0) gm/dL Hct 35.7 (34.0-46.0) % MCV 100.8 H (80.0-100.0) fL MCH 30.6 (25.0-35.0) pg MCHC 30.4 L (31.0-37.0) g/dL RDW 14.1 (11.5-15.5) % Plt Count 519 H (150-450) k/uL MPV 7.0 Neutrophils % 64 % Lymphocytes % 26 % Monocytes % 5 % Eosinophils % 3 % Basophils % 1 % Neutrophils # 7.5 (1.3-7.7) k/uL Lymphocytes # 3.0 (1.0-4.8) k/uL Monocytes # 0.5 (0-1.0) k/uL Eosinophils # 0.4 (0-0.7) k/uL Basophils # 0.1 (0-0.2) k/uL Hypochromasia Slight Macrocytosis Slight PT 11.2 (9.0-12.0) sec INR 1.0 (<1.2) APTT 24.5 (22.0-30.0) sec Sodium 136 L (137-145) mmol/L Potassium 4.1 (3.5-5.1) mmol/L Chloride 106 (98-107) mmol/L Carbon Dioxide 25 (22-30) mmol/L Anion Gap 5 mmol/L BUN 8 (7-17) mg/dL Creatinine 0.44 L (0.52-1.04) mg/dL Est GFR (CKD-EPI)AfAm >90 (>60 ml/min/1.73 sqM) Est GFR (CKD-EPI)NonAf >90 (>60 ml/min/1.73 sqM) Glucose 95 (74-99) mg/dL Calcium 9.3 (8.4-10.2) mg/dL Magnesium 2.1 (1.6-2.3) mg/dL Total Bilirubin 0.5 (0.2-1.3) mg/dL AST 19 (14-36) U/L ALT 13 (4-34) U/L Alkaline Phosphatase 100 (38-126) U/L Troponin I (0.000-0.034) ng/mL Total Protein 7.4 (6.3-8.2) g/dL Albumin 4.1 (3.5-5.0) g/dL 10/26/21 Range/Units 23:09 WBC (3.8-10.6) k/uL RBC (3.80-5.40) m/uL Hgb (11.4-16.0) gm/dL Hct (34.0-46.0) % MCV (80.0-100.0) fL MCH (25.0-35.0) pg MCHC (31.0-37.0) g/dL RDW (11.5-15.5) % Plt Count (150-450) k/uL MPV Neutrophils % % Lymphocytes % % Monocytes % % Eosinophils % % Basophils % % Neutrophils # (1.3-7.7) k/uL Lymphocytes # (1.0-4.8) k/uL Monocytes # (0-1.0) k/uL Eosinophils # (0-0.7) k/uL Basophils # (0-0.2) k/uL Hypochromasia Macrocytosis PT (9.0-12.0) sec INR (<1.2) APTT (22.0-30.0) sec Sodium (137-145) mmol/L Potassium (3.5-5.1) mmol/L Chloride (98-107) mmol/L Carbon Dioxide (22-30) mmol/L Anion Gap mmol/L BUN (7-17) mg/dL Creatinine (0.52-1.04) mg/dL Est GFR (CKD-EPI)AfAm (>60 ml/min/1.73 sqM) Est GFR (CKD-EPI)NonAf (>60 ml/min/1.73 sqM) Glucose (74-99) mg/dL Calcium (8.4-10.2) mg/dL Magnesium (1.6-2.3) mg/dL Total Bilirubin (0.2-1.3) mg/dL AST (14-36) U/L ALT (4-34) U/L Alkaline Phosphatase (38-126) U/L Troponin I <0.012 (0.000-0.034) ng/mL Total Protein (6.3-8.2) g/dL Albumin (3.5-5.0) g/dL Disposition Clinical Impression: Back pain Disposition: HOME SELF-CARE Condition: Good Instructions (If sedation given, give patient instructions): Back Pain (ED) Additional Instructions: Continue taking her medications as previously prescribed and keep your appointment with the mill crane operator tomorrow. Return to the emergency room with any new or concerning symptoms including chest pain or shortness of breath. Increase your fluid intake. Take Tylenol as needed for pain. Is patient prescribed a controlled substance at d/c from ED?: No Referrals: None,Stated [Primary Care Provider] - 1-2 days Time of Disposition: 00:01
--- NOTE | 2021-10-26 22:25 | XR ---
EXAMINATION TYPE: XR chest 2V DATE OF EXAM: 10/26/2021 COMPARISON: 10/18/2021 HISTORY: Chest pain TECHNIQUE: 2 views FINDINGS: There is no heart failure nor confluent pneumonic infiltrate. Costophrenic angles are clear . Bony thorax is intact. IMPRESSION: No active cardiopulmonary disease. Normal heart. No change.
[2021-10-26 23:17] LABS: Basophils # (A) 0.1 k/uL (0-0.2); Basophils % (A) 1 %; Eosinophils # (A) 0.4 k/uL (0-0.7); Eosinophils % (A) 3 %; HCT 35.7 % (34.0-46.0); HGB 10.8 gm/dL (11.4-16.0); Hypochromasia Slight; Lymphocytes % (A) 26 %; MCH 30.6 pg (25.0-35.0); MCHC 30.4 g/dL (31.0-37.0); MCV 100.8 fL (80.0-100.0); Macrocytosis Slight; Monocytes # (A) 0.5 k/uL (0-1.0); Monocytes % (A) 5 %; Neutrophils # (A) 7.5 k/uL (1.3-7.7); Neutrophils % (A) 64 %; Platelet Count 519 k/uL (150-450); RBC 3.54 m/uL (3.80-5.40); RDW 14.1 % (11.5-15.5); WBC 11.6 k/uL (3.8-10.6)
[2021-10-26 23:26] LABS: ALT 13 U/L (4-34); AST 19 U/L (14-36); African American GFR (CKD) >90 (>60 ml/min/1.73 sqM); Albumin 4.1 g/dL (3.5-5.0); Alkaline Phosphatase 100 U/L (38-126); Anion Gap 5 mmol/L; Blood Urea Nitrogen 8 mg/dL (7-17); Calcium 9.3 mg/dL (8.4-10.2); Carbon Dioxide 25 mmol/L (22-30); Chloride 106 mmol/L (98-107); Glucose 95 mg/dL (74-99); Magnesium 2.1 mg/dL (1.6-2.3); Non-African American GFR(CKD) >90 (>60 ml/min/1.73 sqM); Potassium 4.1 mmol/L (3.5-5.1); Sodium 136 mmol/L (137-145); Total Bilirubin 0.5 mg/dL (0.2-1.3); Total Protein 7.4 g/dL (6.3-8.2)
[2021-10-26 23:29] LABS: Partial Thromboplastin Time 24.5 sec (22.0-30.0); Prothrombin Time 11.2 sec (9.0-12.0)
== END 2021-10-27 00:20 | disposition home or self-care (01) ==
LOC: EC 20:18
DX: M54.6 Pain in thoracic spine (principal); J45.909 Unspecified asthma, uncomplicated
CPT/HCPCS: 36415; 71046; 80053; 83735; 84484; 85025; 85610; 85730; 93005; 99284; 99285

== ENCOUNTER 2021-11-08 22:10 | Emergency (ER) | payer OTHER ==
[2021-11-08 22:17] VITALS: TEMP 98.3
[2021-11-08 22:47] LABS: Basophils # (A) 0.1 k/uL (0-0.2); Basophils % (A) 1 %; Eosinophils # (A) 0.4 k/uL (0-0.7); Eosinophils % (A) 6 %; HGB 11.8 gm/dL (11.4-16.0); Lymphocytes # (A) 2.6 k/uL (1.0-4.8); Lymphocytes % (A) 36 %; MCH 31.1 pg (25.0-35.0); MCV 100.3 fL (80.0-100.0); Mean Platelet Volume 7.5; Monocytes # (A) 0.4 k/uL (0-1.0); Monocytes % (A) 6 %; Neutrophils # (A) 3.5 k/uL (1.3-7.7); Neutrophils % (A) 49 %; Platelet Count 277 k/uL (150-450); RBC 3.78 m/uL (3.80-5.40); RDW 13.2 % (11.5-15.5); WBC 7.1 k/uL (3.8-10.6)
--- NOTE | 2021-11-08 22:59 | XR ---
EXAMINATION TYPE: XR chest 2V DATE OF EXAM: 11/08/2021 COMPARISON: 10/26/2021 HISTORY: Short of breath TECHNIQUE: 2 views FINDINGS: Heart and mediastinum are normal. Lungs are clear. Diaphragm is normal. Bony thorax is inta ct. IMPRESSION: Normal chest. No change.
[2021-11-08 23:00] LABS: ALT 10 U/L (4-34); AST 17 U/L (14-36); African American GFR (CKD) >90 (>60 ml/min/1.73 sqM); Albumin 4.4 g/dL (3.5-5.0); Alkaline Phosphatase 86 U/L (38-126); Anion Gap 6 mmol/L; Blood Urea Nitrogen 11 mg/dL (7-17); Calcium 9.8 mg/dL (8.4-10.2); Carbon Dioxide 26 mmol/L (22-30); Chloride 105 mmol/L (98-107); Glucose 96 mg/dL (74-99); Non-African American GFR(CKD) >90 (>60 ml/min/1.73 sqM); Partial Thromboplastin Time 26.4 sec (22.0-30.0); Prothrombin Time 11.3 sec (9.0-12.0); Sodium 137 mmol/L (137-145); Total Bilirubin 0.3 mg/dL (0.2-1.3); Total Protein 7.1 g/dL (6.3-8.2)
[2021-11-09] MEDS ORDERED: ALBUTEROL NEBULIZED 2.5 MG/3 ML INHALATION STA (01:48)
[2021-11-09 01:59] VITALS: RESP 16
[2021-11-09] MEDS ORDERED: BUDESONIDE 1 MG/2 ML NEBU INHALATION STA (01:59)
--- NOTE | 2021-11-09 03:02 | ED ---
SOB HPI - General Chief Complaint: Shortness of Breath Stated Complaint: Chest Pain/SOB Time Seen by Provider: 11/09/21 01:11 Source: patient Mode of arrival: wheelchair - History of Present Illness Initial Comments: This patient is 26-year-old woman with history of asthma, also recent PE after she delivered her baby. I patient having shortness of breath over course of this evening. Patient states she is not having chest pain or hemoptysis. No leg pain or swelling. States this is similar to previous asthma flares. MD Complaint: shortness of breath, cough -: hour(s) Severity scale (1-10): 0 Consistency: constant Improves With: nothing Worsens With: nothing Known History Of: asthma, other Associated Symptoms: denies other symptoms Treatments Prior to Arrival: none - Related Data Home Medications Medication Instructions Recorded Confirmed Albuterol Nebulized [Ventolin 2.5 mg INHALATION RT-Q6H PRN 03/10/21 10/26/21 Nebulized] Pnv,Calcium 72/Iron/Folic Acid 1 tab PO DAILY 03/27/21 10/26/21 [ Plus Tablet] NIFEdipine XL [Procardia XL] 30 mg PO DAILY 09/26/21 10/26/21 methylPREDNISolone Dose Pack See Taper PO DIRECTED 10/26/21 10/26/21 [Medrol Dose Pack] Previous Rx's Medication Instructions Recorded Albuterol Inhaler [Ventolin Hfa 2 puff INHALATION RT-QID PRN #1 12/02/19 Inhaler] inhaler Ferrous Sulfate [Iron (65 MG 325 mg PO BID-W/MEALS #60 tab 10/16/21 Elemental)] Ibuprofen [Motrin] 600 mg PO Q6H PRN #40 tab 10/16/21 Labetalol [Trandate] 100 mg PO BID #60 tab 10/16/21 oxyCODONE HCL [OxyIR] 5 mg PO Q4HR PRN #18 tab 10/16/21 Apixaban [Eliquis] 10 mg PO BID 30 Days #60 tab 10/20/21 Allergies Allergy/AdvReac Type Severity Reaction Status Date / Time amoxicillin [Amoxicillin] Allergy Anaphylaxis Verified 11/08/21 22:17 Review of Systems ROS Statement: Those systems with pertinent positive or pertinent negative responses have been documented in the HPI. ROS Other: All systems not noted in ROS Statement are negative. Constitutional: Denies: fever, chills ENT: Denies: congestion Respiratory: Reports: cough, dyspnea, wheezes. Denies: hemoptysis, stridor Cardiovascular: Denies: chest pain, palpitations, edema, syncope Gastrointestinal: Denies: abdominal pain, nausea, vomiting Genitourinary: Denies: dysuria, frequency, hematuria Musculoskeletal: Denies: back pain Skin: Denies: rash Neurological: Denies: headache, weakness, numbness Past Medical History Past Medical History: Asthma Additional Past Medical History / Comment(s): Chronic asthma, lung collapse (April 2019), preclampsia History of Any Multi-Drug Resistant Organisms: None Reported Past Surgical History: Section Additional Past Surgical History / Comment(s): [place] tooth extraction Past Anesthesia/Blood Transfusion Reactions: No Reported Reaction Additional Past Anesthesia/Blood Transfusion Reaction / Comment(s): no anesthesia or blood before Past Psychological History: No Psychological Hx Reported Smoking Status: Never smoker Past Alcohol Use History: None Reported Past Drug Use History: None Reported - Past Family History Father Family Medical History: Asthma Mother Family Medical History: No Reported History General Exam General appearance: alert, in no apparent distress Head exam: Present: atraumatic, normocephalic Eye exam: Present: normal appearance. Absent: scleral icterus, conjunctival injection ENT exam: Present: normal oropharynx Neck exam: Present: normal inspection Respiratory exam: Present: wheezes. Absent: respiratory distress, rales, rhonchi, stridor, accessory muscle use, decreased breath sounds, prolonged expiratory Cardiovascular Exam: Present: regular rate, normal rhythm, normal heart sounds. Absent: systolic murmur, diastolic murmur, rubs, gallop GI/Abdominal exam: Present: soft. Absent: distended, tenderness, guarding, rebound, rigid, mass Extremities exam: Present: normal inspection, normal capillary refill. Absent: pedal edema, calf tenderness Back exam: Present: normal inspection Neurological exam: Present: alert Skin exam: Present: warm, dry, intact, normal color. Absent: rash Course Vital Signs 11/08/21 11/09/21 11/09/21 22:15 01:57 01:58 Temperature 98.3 F Pulse Rate 109 H 100 88 Respiratory 18 16 Rate Blood Pressure 144/80 148/107 O2 Sat by Pulse 98 99 Oximetry 11/09/21 11/09/21 02:13 02:58 Temperature Pulse Rate 99 109 H Respiratory 16 Rate Blood Pressure 129/92 O2 Sat by Pulse 97 Oximetry Medical Decision Making - Medical Decision Making Patient is 26-year-old woman with underlying asthma as well as recent EEG. Physical exam consistent with asthma exacerbation. No evidence of new DVT. Patient compliant with her medication and the d-dimer is negative. She is feeling better following nebulized medication. Discussed appropriate further care and follow-up as well as return parameters - Lab Data Result diagrams: 11/08/21 22:11/08/21 22: Lab Results 11/08/21 11/08/21 11/08/21 Range/Units 22:28 22: 22: WBC 7.1 (3.8-10.6) k/uL RBC 3.78 L (3.80-5.40) m/uL Hgb 11.8 (11.4-16.0) gm/dL Hct 38.0 (34.0-46.0) % MCV 100.3 H (80.0-100.0) fL MCH 31.1 (25.0-35.0) pg MCHC 31.0 (31.0-37.0) g/dL RDW 13.2 (11.5-15.5) % Plt Count 277 (150-450) k/uL MPV 7.5 Neutrophils % 49 % Lymphocytes % 36 % Monocytes % 6 % Eosinophils % 6 % Basophils % 1 % Neutrophils # 3.5 (1.3-7.7) k/uL Lymphocytes # 2.6 (1.0-4.8) k/uL Monocytes # 0.4 (0-1.0) k/uL Eosinophils # 0.4 (0-0.7) k/uL Basophils # 0.1 (0-0.2) k/uL PT 11.3 (9.0-12.0) sec INR 1.0 (<1.2) APTT 26.4 (22.0-30.0) sec D-Dimer (<0.60) mg/L FEU Sodium 137 (137-145) mmol/L Potassium 4.0 (3.5-5.1) mmol/L Chloride 105 (98-107) mmol/L Carbon Dioxide 26 (22-30) mmol/L Anion Gap 6 mmol/L BUN 11 (7-17) mg/dL Creatinine 0.67 (0.52-1.04) mg/dL Est GFR (CKD-EPI)AfAm >90 (>60 ml/min/1.73 sqM) Est GFR (CKD-EPI)NonAf >90 (>60 ml/min/1.73 sqM) Glucose 96 (74-99) mg/dL Calcium 9.8 (8.4-10.2) mg/dL Total Bilirubin 0.3 (0.2-1.3) mg/dL AST 17 (14-36) U/L ALT 10 (4-34) U/L Alkaline Phosphatase 86 (38-126) U/L Troponin I (0.000-0.034) ng/mL Total Protein 7.1 (6.3-8.2) g/dL Albumin 4.4 (3.5-5.0) g/dL 11/08/21 11/08/21 Range/Units 22:28 22:28 WBC (3.8-10.6) k/uL RBC (3.80-5.40) m/uL Hgb (11.4-16.0) gm/dL Hct (34.0-46.0) % MCV (80.0-100.0) fL MCH (25.0-35.0) pg MCHC (31.0-37.0) g/dL RDW (11.5-15.5) % Plt Count (150-450) k/uL MPV Neutrophils % % Lymphocytes % % Monocytes % % Eosinophils % % Basophils % % Neutrophils # (1.3-7.7) k/uL Lymphocytes # (1.0-4.8) k/uL Monocytes # (0-1.0) k/uL Eosinophils # (0-0.7) k/uL Basophils # (0-0.2) k/uL PT (9.0-12.0) sec INR (<1.2) APTT (22.0-30.0) sec D-Dimer <0.17 (<0.60) mg/L FEU Sodium (137-145) mmol/L Potassium (3.5-5.1) mmol/L Chloride (98-107) mmol/L Carbon Dioxide (22-30) mmol/L Anion Gap mmol/L BUN (7-17) mg/dL Creatinine (0.52-1.04) mg/dL Est GFR (CKD-EPI)AfAm (>60 ml/min/1.73 sqM) Est GFR (CKD-EPI)NonAf (>60 ml/min/1.73 sqM) Glucose (74-99) mg/dL Calcium (8.4-10.2) mg/dL Total Bilirubin (0.2-1.3) mg/dL AST (14-36) U/L ALT (4-34) U/L Alkaline Phosphatase (38-126) U/L Troponin I <0.012 (0.000-0.034) ng/mL Total Protein (6.3-8.2) g/dL Albumin (3.5-5.0) g/dL Disposition Clinical Impression: Asthma exacerbation Disposition: HOME SELF-CARE Condition: Good Instructions (If sedation given, give patient instructions): Asthma (ED) Is patient prescribed a controlled substance at d/c from ED?: No Referrals: Serena Johnson FNPBC [Primary Care Provider] - 1-2 days
[2021-11-09 03:04] VITALS: BP 129/92; PULSE 109
== END 2021-11-09 03:30 | disposition home or self-care (01) ==
LOC: EC 22:10
DX: J45.901 Unspecified asthma with (acute) exacerbation (principal); Z88.0 Allergy status to penicillin
CPT/HCPCS: 36415; 71046; 80053; 84484; 85025; 85379; 85610; 85730; 93005; 94640

== ENCOUNTER 2021-11-18 12:01 | Emergency (ER) | payer OTHER ==
[2021-11-18 12:11] VITALS: RESP 16; TEMP 98.9
[2021-11-18] MEDS ORDERED: IPRATROPIUM-ALBUTEROL 3 ML NEB INHALATION STA (12:28)
--- NOTE | 2021-11-18 12:39 | ED ---
General Adult HPI - General Chief complaint: Shortness of Breath Stated complaint: SOB, med reaction Time Seen by Provider: 11/18/21 12:13 Source: patient, EMS, RN notes reviewed, old records reviewed Mode of arrival: EMS - History of Present Illness Initial comments: 26 -year-old female presenting for evaluation of dyspnea. Patient was receiving iron transfusion at the infusion center. She became acutely short of breath. Ultimately EMS was contacted and the patient was given a breathing treatment during transport. She does have history of asthma states this was typical of her asthma attacks. She is feeling completely better at the time my evaluation after this albuterol treatment. She denies any preceding chest pain. No fever. No productive cough. - Related Data Home Medications Medication Instructions Recorded Confirmed Albuterol Nebulized [Ventolin 2.5 mg INHALATION RT-Q6H PRN 03/10/21 10/26/21 Nebulized] Pnv,Calcium 72/Iron/Folic Acid 1 tab PO DAILY 03/27/21 10/26/21 [ Plus Tablet] NIFEdipine XL [Procardia XL] 30 mg PO DAILY 09/26/21 10/26/21 methylPREDNISolone Dose Pack See Taper PO DIRECTED 10/26/21 10/26/21 [Medrol Dose Pack] Previous Rx's Medication Instructions Recorded Albuterol Inhaler [Ventolin Hfa 2 puff INHALATION RT-QID PRN #1 12/02/19 Inhaler] inhaler Ferrous Sulfate [Iron (65 MG 325 mg PO BID-W/MEALS #60 tab 10/16/21 Elemental)] Ibuprofen [Motrin] 600 mg PO Q6H PRN #40 tab 10/16/21 Labetalol [Trandate] 100 mg PO BID #60 tab 10/16/21 oxyCODONE HCL [OxyIR] 5 mg PO Q4HR PRN #18 tab 10/16/21 Apixaban [Eliquis] 10 mg PO BID 30 Days #60 tab 10/20/21 Allergies Allergy/AdvReac Type Severity Reaction Status Date / Time amoxicillin [Amoxicillin] Allergy Anaphylaxis Verified 11/08/21 22:17 Review of Systems ROS Statement: Those systems with pertinent positive or pertinent negative responses have been documented in the HPI. ROS Other: All systems not noted in ROS Statement are negative. Past Medical History Past Medical History: Asthma Additional Past Medical History / Comment(s): Chronic asthma, lung collapse (April 2019), preclampsia History of Any Multi-Drug Resistant Organisms: None Reported Past Surgical History: Section Additional Past Surgical History / Comment(s): [place] tooth extraction Past Anesthesia/Blood Transfusion Reactions: No Reported Reaction Additional Past Anesthesia/Blood Transfusion Reaction / Comment(s): no anesthesia or blood before Past Psychological History: No Psychological Hx Reported Smoking Status: Never smoker Past Alcohol Use History: None Reported Past Drug Use History: None Reported - Past Family History Father Family Medical History: Asthma Mother Family Medical History: No Reported History General Exam General appearance: alert, in no apparent distress Head exam: Present: atraumatic, normocephalic Eye exam: Present: normal appearance, PERRL ENT exam: Present: normal exam Neck exam: Present: normal inspection. Absent: tenderness, meningismus Respiratory exam: Present: wheezes, other (Good air entry). Absent: respiratory distress, rales, rhonchi Cardiovascular Exam: Present: regular rate, normal rhythm GI/Abdominal exam: Present: soft. Absent: distended, tenderness Extremities exam: Present: normal inspection, normal capillary refill. Absent: pedal edema Neurological exam: Present: alert, oriented X3, CN II-XII intact. Absent: motor sensory deficit Psychiatric exam: Present: normal affect, normal mood Skin exam: Present: warm, dry, intact. Absent: cyanosis, diaphoretic, erythema Course Vital Signs 11/18/21 11/18/21 11/18/21 12:07 12:11 13:15 Temperature 98.9 F Pulse Rate 112 H 101 H Respiratory 16 16 Rate Blood Pressure 137/101 O2 Sat by Pulse 98 Oximetry 11/18/21 13:26 Temperature Pulse Rate 104 H Respiratory Rate Blood Pressure O2 Sat by Pulse Oximetry Medical Decision Making - Medical Decision Making Patient feeling better, no further dyspnea. Breathing room air. Eager for discharge. Chest x-ray is clear. Patient has albuterol at home. Disposition Clinical Impression: Asthma exacerbation Disposition: HOME SELF-CARE Condition: Good Instructions (If sedation given, give patient instructions): Asthma (ED) Is patient prescribed a controlled substance at d/c from ED?: No Referrals: Lou Eastman MD [Primary Care Provider] - 1-2 days Time of Disposition: 13:29
--- NOTE | 2021-11-18 13:04 | XR ---
EXAMINATION TYPE: XR chest 2V DATE OF EXAM: 11/18/2021 COMPARISON: Chest x-ray 10 days ago HISTORY: Difficulty in breathing after iron infusion. TECHNIQUE: Frontal and lateral views of the chest are obtained. FINDINGS: There is no suspicious new focal air space opacity, pleural effusion, or pneumothorax seen . The cardiac silhouette size remains within normal limits. The osseous structures are intact. IMPRESSION: No acute process. No significant change from prior.
[2021-11-18 13:35] VITALS: BP 128/74; PULSE 67
== END 2021-11-18 13:35 | disposition home or self-care (01) ==
LOC: EC 12:01
DX: J45.901 Unspecified asthma with (acute) exacerbation (principal); Z79.01 Long term (current) use of anticoagulants; Z79.51 Long term (current) use of inhaled steroids
CPT/HCPCS: 71046; 94640; 99285

== ENCOUNTER 2021-11-22 05:15 | Emergency (ER) | payer OTHER ==
[2021-11-22 05:26] VITALS: TEMP 98.2
--- NOTE | 2021-11-22 06:31 | ED ---
General Adult HPI - General Chief complaint: Arrhythmia/Palpitations Stated complaint: Tachycardia Time Seen by Provider: 11/22/21 06:11 Source: EMS, RN notes reviewed Mode of arrival: EMS Limitations: no limitations - History of Present Illness Initial comments: Patient is a 26-year-old -[place] female presents with complaint of waking up during the night with tachycardia. She reports that she utilize her pulse ox at home revealing heart rate in the 140-160 range. Her grandmother consequently called EMS and she was brought to the emergency room. Once arriving her heart rate had already normalized. She has a past medical history significant for asthma pulmonary emboli and hypertension. She recently underwent emergency as well. She reports that her hypertensive regimen was recently changed from labetalol and Procardia to Norvasc. She is following with pulmonary and her primary care provider outpatient regularly she does report intermittent palpitations without any associated symptoms. She denies any chest pain, diaphoresis, shortness of breath, or dizziness. She denies any recent albuterol use. She denies any other complaints at this time. - Related Data Home Medications Medication Instructions Recorded Confirmed Albuterol Nebulized [Ventolin 2.5 mg INHALATION RT-Q6H PRN 03/10/21 10/26/21 Nebulized] Pnv,Calcium 72/Iron/Folic Acid 1 tab PO DAILY 03/27/21 10/26/21 [ Plus Tablet] NIFEdipine XL [Procardia XL] 30 mg PO DAILY 09/26/21 10/26/21 methylPREDNISolone Dose Pack See Taper PO DIRECTED 10/26/21 10/26/21 [Medrol Dose Pack] Previous Rx's Medication Instructions Recorded Albuterol Inhaler [Ventolin Hfa 2 puff INHALATION RT-QID PRN #1 12/02/19 Inhaler] inhaler Ferrous Sulfate [Iron (65 MG 325 mg PO BID-W/MEALS #60 tab 10/16/21 Elemental)] Ibuprofen [Motrin] 600 mg PO Q6H PRN #40 tab 10/16/21 Labetalol [Trandate] 100 mg PO BID #60 tab 10/16/21 oxyCODONE HCL [OxyIR] 5 mg PO Q4HR PRN #18 tab 10/16/21 Apixaban [Eliquis] 10 mg PO BID 30 Days #60 tab 10/20/21 Allergies Allergy/AdvReac Type Severity Reaction Status Date / Time amoxicillin [Amoxicillin] Allergy Anaphylaxis Verified 11/22/21 05:17 Review of Systems ROS Statement: Those systems with pertinent positive or pertinent negative responses have been documented in the HPI. ROS Other: All systems not noted in ROS Statement are negative. Past Medical History Past Medical History: Asthma, Hypertension, Pulmonary Embolus (PE) Additional Past Medical History / Comment(s): Chronic asthma, lung collapse (April 2019), preclampsia History of Any Multi-Drug Resistant Organisms: None Reported Past Surgical History: Section Additional Past Surgical History / Comment(s): [place] tooth extraction Past Anesthesia/Blood Transfusion Reactions: No Reported Reaction Additional Past Anesthesia/Blood Transfusion Reaction / Comment(s): no an esthesia or blood before Past Psychological History: No Psychological Hx Reported Smoking Status: Never smoker Past Alcohol Use History: None Reported Past Drug Use History: None Reported - Past Family History Father Family Medical History: Asthma Mother Family Medical History: No Reported History General Exam Limitations: no limitations General appearance: alert, in no apparent distress Head exam: Present: atraumatic, normocephalic, normal inspection Eye exam: Present: normal appearance, PERRL, EOMI. Absent: scleral icterus, conjunctival injection, periorbital swelling Respiratory exam: Present: normal lung sounds bilaterally. Absent: respiratory distress, wheezes, rales, rhonchi, stridor Cardiovascular Exam: Present: regular rate, normal rhythm, normal heart sounds. Absent: systolic murmur, diastolic murmur, rubs, gallop, clicks GI/Abdominal exam: Present: soft, normal bowel sounds. Absent: distended, te nderness, guarding, rebound, rigid Rectal exam: Present: deferred Extremities exam: Present: normal inspection. Absent: pedal edema, calf tenderness Neurological exam: Present: alert, oriented X3, CN II-XII intact Psychiatric exam: Present: normal affect, normal mood Skin exam: Present: warm, dry, intact, normal color. Absent: rash Course Vital Signs 11/22/21 11/22/21 11/22/21 05:17 05:47 05:49 Temperature 98.2 F Pulse Rate 101 H 95 Pulse Rate [ 111 H Apical] Respiratory 18 18 Rate Blood Pressure 141/110 131/110 O2 Sat by Pulse 98 98 Oximetry 05/29/22 06:43 Temperature Pulse Rate 98 Pulse Rate [ Apical] Respiratory 18 Rate Blood Pressure 121/95 O2 Sat by Pulse 98 Oximetry EKG Findings - EKG Comments: EKG Findings:: Since tachycardia possible right atrial enlargement and left atrial enlargement and nonspecific T-wave abnormality. Ventricular rate 101 MD interval 144 ms QRS duration 83 ms QT/QTC 340/393 ms Medical Decision Making - Medical Decision Making EKG no changes noted without any electrolyte or troponin abnormalities. Chest x- ray without acute changes. Rate and blood pressure normalized without medical intervention. She is following with cardiology outpatient; no indication for cardiac evaluation if patient at this time. - Lab Data Result diagrams: 11/22/21 06:38 11/22/21 06:38 Lab Results 11/22/21 11/22/21 11/22/21 Range/Units 06:38 06:38 06:38 WBC 8.7 (3.8-10.6) k/uL RBC 4.56 (3.80-5.40) m/uL Hgb 13.9 (11.4-16.0) gm/dL Hct 44.3 (34.0-46.0) % MCV 97.2 (80.0-100.0) fL MCH 30.4 (25.0-35.0) pg MCHC 31.3 (31.0-37.0) g/dL RDW 12.6 (11.5-15.5) % Plt Count 283 (150-450) k/uL MPV 7.5 Neutrophils % 47 % Lymphocytes % 40 % Monocytes % 7 % Eosinophils % 4 % Basophils % 1 % Neutrophils # 4.1 (1.3-7.7) k/uL Lymphocytes # 3.5 (1.0-4.8) k/uL Monocytes # 0.6 (0-1.0) k/uL Eosinophils # 0.3 (0-0.7) k/uL Basophils # 0.1 (0-0.2) k/uL PT 10.8 (9.0-12.0) sec INR 1.0 (<1.2) APTT 26.3 (22.0-30.0) sec Sodium (137-145) mmol/L Potassium (3.5-5.1) mmol/L Chloride (98-107) mmol/L Carbon Dioxide (22-30) mmol/L Anion Gap mmol/L BUN (7-17) mg/dL Creatinine (0.52-1.04) mg/dL Est GFR (CKD-EPI)AfAm (>60 ml/min/1.73 sqM) Est GFR (CKD-EPI)NonAf (>60 ml/min/1.73 sqM) Glucose (74-99) mg/dL Calcium (8.4-10.2) mg/dL Magnesium (1.6-2.3) mg/dL Total Bilirubin (0.2-1.3) mg/dL AST (14-36) U/L ALT (4-34) U/L Alkaline Phosphatase (38-126) U/L Troponin I (0.000-0.034) ng/mL Total Protein (6.3-8.2) g/dL Albumin (3.5-5.0) g/dL TSH (0.465-4.680) mIU/L Urine Color Light Yellow Urine Appearance Clear (Clear) Urine pH 7.0 (5.0-8.0) Ur Specific [place] 1.008 (1.001-1.035) Urine Protein Negative (Negative) Urine Glucose (UA) Negative (Negative) Urine Ketones Negative (Negative) Urine Blood Large H (Negative) Urine Nitrite Negative (Negative) Urine Bilirubin Negative (Negative) Urine Urobilinogen <2.0 (<2.0) mg/dL Ur Leukocyte Esterase Trace H (Negative) Urine RBC 1 (0-5) /hpf Urine WBC 3 (0-5) /hpf Ur Squamous Epith Cells 1 (0-4) /hpf Urine Bacteria Rare H (None) /hpf Urine Mucus Rare H (None) /hpf 11/22/21 11/22/21 Range/Units 06:38 06:38 WBC (3.8-10.6) k/uL RBC (3.80-5.40) m/uL Hgb (11.4-16.0) gm/dL Hct (34.0-46.0) % MCV (80.0-100.0) fL MCH (25.0-35.0) pg MCHC (31.0-37.0) g/dL RDW (11.5-15.5) % Plt Count (150-450) k/uL MPV Neutrophils % % Lymphocytes % % Monocytes % % Eosinophils % % Basophils % % Neutrophils # (1.3-7.7) k/uL Lymphocytes # (1.0-4.8) k/uL Monocytes # (0-1.0) k/uL Eosinophils # (0-0.7) k/uL Basophils # (0-0.2) k/uL PT (9.0-12.0) sec INR (<1.2) APTT (22.0-30.0) sec Sodium 139 (137-145) mmol/L Potassium 3.9 (3.5-5.1) mmol/L Chloride 104 (98-107) mmol/L Carbon Dioxide 24 (22-30) mmol/L Anion Gap 11 mmol/L BUN 14 (7-17) mg/dL Creatinine 0.76 (0.52-1.04) mg/dL Est GFR (CKD-EPI)AfAm >90 (>60 ml/min/1.73 sqM) Est GFR (CKD-EPI)NonAf >90 (>60 ml/min/1.73 sqM) Glucose 97 (74-99) mg/dL Calcium 9.6 (8.4-10.2) mg/dL Magnesium 2.1 (1.6-2.3) mg/dL Total Bilirubin 0.2 (0.2-1.3) mg/dL AST 19 (14-36) U/L ALT 10 (4-34) U/L Alkaline Phosphatase 88 (38-126) U/L Troponin I <0.012 (0.000-0.034) ng/mL Total Protein 8.1 (6.3-8.2) g/dL Albumin 4.8 (3.5-5.0) g/dL TSH 3.930 (0.465-4.680) mIU/L Urine Color Urine Appearance (Clear) Urine pH (5.0-8.0) Ur Specific Garber (1.001-1.035) Urine Protein (Negative) Urine Glucose (UA) (Negative) Urine Ketones (Negative) Urine Blood (Negative) Urine Nitrite (Negative) Urine Bilirubin (Negative) Urine Urobilinogen (<2.0) mg/dL Ur Leukocyte Esterase (Negative) Urine RBC (0-5) /hpf Urine WBC (0-5) /hpf Ur Squamous Epith Cells (0-4) /hpf Urine Bacteria (None) /hpf Urine Mucus (None) /hpf When compared to previous EKG there are: changes noted - Radiology Data Radiology results: image reviewed (No acute findings) Disposition Clinical Impression: Sinus tachycardia Disposition: HOME SELF-CARE Condition: Stable Instructions (If sedation given, give patient instructions): Heart Palpitations (ED) Additional Instructions: Please return to the Emergency Department if symptoms worsen or any other concerns. Is patient prescribed a controlled substance at d/c from ED?: No Referrals: Lou Eastman MD [Primary Care Provider] - 1-2 days Wesley Mcdonough DO [STAFF PHYSICIAN] - 1-2 days Time of Disposition: 07:42
[2021-11-22 06:54] LABS: Basophils # (A) 0.1 k/uL (0-0.2); Basophils % (A) 1 %; Eosinophils # (A) 0.3 k/uL (0-0.7); Eosinophils % (A) 4 %; HCT 44.3 % (34.0-46.0); HGB 13.9 gm/dL (11.4-16.0); Lymphocytes # (A) 3.5 k/uL (1.0-4.8); Lymphocytes % (A) 40 %; MCH 30.4 pg (25.0-35.0); MCHC 31.3 g/dL (31.0-37.0); MCV 97.2 fL (80.0-100.0); Mean Platelet Volume 7.5; Monocytes # (A) 0.6 k/uL (0-1.0); Monocytes % (A) 7 %; Neutrophils # (A) 4.1 k/uL (1.3-7.7); Neutrophils % (A) 47 %; Platelet Count 283 k/uL (150-450); RBC 4.56 m/uL (3.80-5.40); RDW 12.6 % (11.5-15.5); WBC 8.7 k/uL (3.8-10.6)
[2021-11-22 07:04] LABS: Partial Thromboplastin Time 26.3 sec (22.0-30.0); Prothrombin Time 10.8 sec (9.0-12.0)
[2021-11-22 07:07] LABS: Appearance,Urine Clear (Clear); Bacteria,Urine Rare /hpf; Bilirubin,Urine Negative (Negative); Blood,Urine Large (Negative); Color,Urine Light Yellow; Glucose,Urine (UA) Negative (Negative); Ketones,Urine Negative (Negative); Leukocyte Esterase,Urine Trace (Negative); Mucus,Urine Rare /hpf; Nitrite,Urine Negative (Negative); Protein,Urine Negative (Negative); RBC,Urine 1 /hpf (0-5); Specific Gravity,Urine 1.008 (1.001-1.035); Squamous Epithelial Cell,Urine 1 /hpf (0-4); Urobilinogen,Urine <2.0 mg/dL (<2.0); WBC,Urine 3 /hpf (0-5)
[2021-11-22 07:08] LABS: ALT 10 U/L (4-34); AST 19 U/L (14-36); African American GFR (CKD) >90 (>60 ml/min/1.73 sqM); Albumin 4.8 g/dL (3.5-5.0); Alkaline Phosphatase 88 U/L (38-126); Anion Gap 11 mmol/L; Blood Urea Nitrogen 14 mg/dL (7-17); Calcium 9.6 mg/dL (8.4-10.2); Carbon Dioxide 24 mmol/L (22-30); Chloride 104 mmol/L (98-107); Glucose 97 mg/dL (74-99); Magnesium 2.1 mg/dL (1.6-2.3); Non-African American GFR(CKD) >90 (>60 ml/min/1.73 sqM); Potassium 3.9 mmol/L (3.5-5.1); Sodium 139 mmol/L (137-145); Total Bilirubin 0.2 mg/dL (0.2-1.3); Total Protein 8.1 g/dL (6.3-8.2)
--- NOTE | 2021-11-22 07:55 | XR ---
EXAMINATION TYPE: XR chest 2V DATE OF EXAM: 11/22/2021 COMPARISON: 11/18/2021 INDICATION: Chest palpitations TECHNIQUE: Frontal and lateral views of the chest are obtained. FINDINGS: The heart size is normal. The pulmonary vasculature is normal. The lungs are clear. IMPRESSION: 1. No acute pulmonary process.
[2021-11-22 08:13] VITALS: BP 122/91; PULSE 88; RESP 16
== END 2021-11-22 08:13 | disposition home or self-care (01) ==
LOC: EC 05:15
DX: R00.0 Tachycardia, unspecified (principal); I10 Essential (primary) hypertension; J45.909 Unspecified asthma, uncomplicated; Z88.0 Allergy status to penicillin; Z79.899 Other long term (current) drug therapy
CPT/HCPCS: 36415; 71046; 80053; 81001; 83735; 84443; 84484; 85025; 85610; 85730; 93005; 99285

== ENCOUNTER 2021-12-01 21:00 | Emergency (ER) | payer OTHER ==
[2021-12-01 21:35] VITALS: TEMP 98.5
[2021-12-02 00:57] LABS: Basophils # (A) 0.1 k/uL (0-0.2); Basophils % (A) 1 %; Eosinophils # (A) 0.5 k/uL (0-0.7); Eosinophils % (A) 5 %; HCT 46.3 % (34.0-46.0); HGB 14.1 gm/dL (11.4-16.0); Lymphocytes # (A) 2.6 k/uL (1.0-4.8); Lymphocytes % (A) 27 %; MCH 29.6 pg (25.0-35.0); MCHC 30.4 g/dL (31.0-37.0); MCV 97.4 fL (80.0-100.0); Mean Platelet Volume 7.7; Monocytes # (A) 0.3 k/uL (0-1.0); Monocytes % (A) 3 %; Neutrophils # (A) 6.2 k/uL (1.3-7.7); Neutrophils % (A) 63 %; Platelet Count 305 k/uL (150-450); RBC 4.76 m/uL (3.80-5.40); RDW 12.7 % (11.5-15.5); WBC 9.8 k/uL (3.8-10.6)
[2021-12-02 01:08] LABS: ALT 14 U/L (4-34); AST 23 U/L (14-36); African American GFR (CKD) >90 (>60 ml/min/1.73 sqM); Alkaline Phosphatase 86 U/L (38-126); Anion Gap 11 mmol/L; Blood Urea Nitrogen 10 mg/dL (7-17); Calcium 9.9 mg/dL (8.4-10.2); Carbon Dioxide 24 mmol/L (22-30); Chloride 103 mmol/L (98-107); Glucose 106 mg/dL (74-99); Non-African American GFR(CKD) >90 (>60 ml/min/1.73 sqM); Sodium 138 mmol/L (137-145); Total Bilirubin 0.2 mg/dL (0.2-1.3); Total Protein 8.3 g/dL (6.3-8.2)
--- NOTE | 2021-12-02 01:14 | XR ---
EXAMINATION TYPE: XR chest 2V DATE OF EXAM: 12/02/2021 COMPARISON: 11/23/2019 HISTORY: Palpitations. Chest pain TECHNIQUE: FINDINGS: Heart and mediastinum are normal. Lungs are clear. Diaphragm is normal. Bony thorax appears normal. IMPRESSION: Normal chest. No change.
--- NOTE | 2021-12-02 01:46 | ED ---
General Adult HPI - General Chief complaint: ENT Stated complaint: Chest pain,SOB Time Seen by Provider: 12/02/21 00:09 Source: patient, RN notes reviewed Mode of arrival: ambulatory Limitations: no limitations - History of Present Illness Initial comments: 26-year-old female presents to the emergency department for evaluation of foreign body sensation in the throat. Patient states she swallowed it gusher early this morning that she feels is still stuck in her esophagus. Patient states she has been able to eat and drink without difficulty since. Denies any difficulty breathing. Does report some mild GI discomfort and took protonix earlier today. States she was recently diagnosed with a PE and has been on new blood pressure medications since delivering her baby 5 weeks ago. States she has been seen by cardiology and is currently wearing a heart monitor due to elevated heart rate and episodes of chest pain. Patient states she is currently pain-free with the exception of the discomfort in her throat. Denies fever, chills, headache, cough, congestion, chest pain, shortness of breath, abdominal pain, nausea, vomiting, diarrhea, or dysuria. - Related Data Home Medications Medication Instructions Recorded Confirmed Albuterol Nebulized [Ventolin 2.5 mg INHALATION RT-Q6H PRN 03/10/21 10/26/21 Nebulized] Pnv,Calcium 72/Iron/Folic Acid 1 tab PO DAILY 03/27/21 10/26/21 [ Plus Tablet] NIFEdipine XL [Procardia XL] 30 mg PO DAILY 09/26/21 10/26/21 methylPREDNISolone Dose Pack See Taper PO DIRECTED 10/26/21 10/26/21 [Medrol Dose Pack] Previous Rx's Medication Instructions Recorded Albuterol Inhaler [Ventolin Hfa 2 puff INHALATION RT-QID PRN #1 12/02/19 Inhaler] inhaler Ferrous Sulfate [Iron (65 MG 325 mg PO BID-W/MEALS #60 tab 10/16/21 Elemental)] Ibuprofen [Motrin] 600 mg PO Q6H PRN #40 tab 10/16/21 Labetalol [Trandate] 100 mg PO BID #60 tab 10/16/21 oxyCODONE HCL [OxyIR] 5 mg PO Q4HR PRN #18 tab 10/16/21 Apixaban [Eliquis] 10 mg PO BID 30 Days #60 tab 10/20/21 Allergies Allergy/AdvReac Type Severity Reaction Status Date / Time amoxicillin [Amoxicillin] Allergy Anaphylaxis Verified 12/01/21 21:32 Review of Systems ROS Statement: Those systems with pertinent positive or pertinent negative responses have been documented in the HPI. ROS Other: All systems not noted in ROS Statement are negative. Past Medical History Past Medical History: Asthma, Hypertension, Pulmonary Embolus (PE) Additional Past Medical History / Comment(s): Chronic asthma, lung collapse (April 2019), preclampsia History of Any Multi-Drug Resistant Organisms: None Reported Past Surgical History: Section Additional Past Surgical History / Comment(s): [place] tooth extraction Past Anesthesia/Blood Transfusion Reactions: No Reported Reaction Additional Past Anesthesia/Blood Transfusion Reaction / Comment(s): no anesthesia or blood before Past Psychological History: No Psychological Hx Reported Smoking Status: Never smoker Past Alcohol Use History: None Reported Past Drug Use History: None Reported - Past Family History Father Family Medical History: Asthma Mother Family Medical History: No Reported History General Exam Limitations: no limitations (Well-developed, well-nourished female in no acute distress. Initial temperature 98.5, pulse 118, blood pressure 142/96, pulse ox 98% on room air.) General appearance: alert, in no apparent distress Eye exam: Present: normal appearance. Absent: scleral icterus, conjunctival injection, periorbital swelling, periorbital tenderness ENT exam: Present: normal exam, normal oropharynx, mucous membranes moist Neck exam: Present: normal inspection, full ROM. Absent: tenderness, meningismus, lymphadenopathy Respiratory exam: Present: normal lung sounds bilaterally. Absent: respiratory distress, wheezes, rales, rhonchi, stridor, chest wall tenderness Cardiovascular Exam: Present: regular rate, normal rhythm, normal heart sounds. Absent: systolic murmur, diastolic murmur, rubs, gallop, clicks GI/Abdominal exam: Present: soft, normal bowel sounds. Absent: distended, t enderness, guarding, rebound, rigid Back exam: Absent: CVA tenderness (R), CVA tenderness (L) Neurological exam: Present: alert, oriented X3, normal gait Psychiatric exam: Present: anxious Skin exam: Present: warm, dry, intact, normal color. Absent: rash Course Vital Signs 12/01/21 12/02/21 21:32 01:48 Temperature 98.5 F Pulse Rate 118 H 86 Respiratory 16 22 Rate Blood Pressure 142/96 126/100 O2 Sat by Pulse 98 99 Oximetry - Reevaluation(s) Reevaluation #1: 12/02/21 01:45 Patient complains of epigastric discomfort that radiates into her back. Discussed options for treatment and given patient's work-up, a GI cocktail was ordered. 12/02/21 03:00 Upon reevaluation, patient is observed to sleep and appears to be resting comfortably. Upon awakening, she verbalizes improvement. We did discuss at length her complicated medical situation. She has encouraged to continue to monitor and record her heart rate and blood pressure routinely. Instructed to continue her home medications as prescribed. Encouraged to follow up with her prescribers for reevaluation and further treatment. Medical Decision Making - Medical Decision Making This is a 26-year-old female with a recent diagnosis of PE status post section due to preeclampsia. Patient presents with complaints of foreign body sensation after swallowing a "gusher" candy this morning. Patient's physical exam findings are negative. She is tolerating oral intake without difficulty. Chest x-ray was obtained and was negative for any evidence of aspiration. EKG shows sinus rhythm with sinus arrhythmia which is baseline for patient. Laboratory studies were reviewed and are unremarkable. Patient did complain of epigastric discomfort for which she was given a GI cocktail with improvement. We discussed ongoing monitoring of heart rate and blood pressure. Encouraged to continue her home medications as prescribed and to follow up with her prescribers for reevaluation by the end of the week. Patient is reassured that she is managing her care appropriately. Return parameters were discussed in detail. Patient verbalizes understanding and agrees with this plan. Attending: Brant. - Lab Data Result diagrams: 12/02/21 00:49 12/02/21 00:49 Lab Results 12/02/21 12/02/21 12/02/21 Range/Units 00:49 00:49 00:49 WBC 9.8 (3.8-10.6) k/uL RBC 4.76 (3.80-5.40) m/uL Hgb 14.1 (11.4-16.0) gm/dL Hct 46.3 H (34.0-46.0) % MCV 97.4 (80.0-100.0) fL MCH 29.6 (25.0-35.0) pg MCHC 30.4 L (31.0-37.0) g/dL RDW 12.7 (11.5-15.5) % Plt Count 305 (150-450) k/uL MPV 7.7 Neutrophils % 63 % Lymphocytes % 27 % Monocytes % 3 % Eosinophils % 5 % Basophils % 1 % Neutrophils # 6.2 (1.3-7.7) k/uL Lymphocytes # 2.6 (1.0-4.8) k/uL Monocytes # 0.3 (0-1.0) k/uL Eosinophils # 0.5 (0-0.7) k/uL Basophils # 0.1 (0-0.2) k/uL Sodium 138 (137-145) mmol/L Potassium 4.0 (3.5-5.1) mmol/L Chloride 103 (98-107) mmol/L Carbon Dioxide 24 (22-30) mmol/L Anion Gap 11 mmol/L BUN 10 (7-17) mg/dL Creatinine 0.71 (0.52-1.04) mg/dL Est GFR (CKD-EPI)AfAm >90 (>60 ml/min/1.73 sqM) Est GFR (CKD-EPI)NonAf >90 (>60 ml/min/1.73 sqM) Glucose 106 H (74-99) mg/dL Calcium 9.9 (8.4-10.2) mg/dL Total Bilirubin 0.2 (0.2-1.3) mg/dL AST 23 (14-36) U/L ALT 14 (4-34) U/L Alkaline Phosphatase 86 (38-126) U/L Troponin I <0.012 (0.000-0.034) ng/mL Total Protein 8.3 H (6.3-8.2) g/dL Albumin 5.0 (3.5-5.0) g/dL - EKG Data EKG shows normal: sinus rhythm Rate: normal EKG Comments: EKG was obtained at 2103 showing sinus rhythm with sinus arrhythmia and left atrial enlargement. Ventricular rate 99, NH interval 136, QRS duration 82, QT/QTC 340/397. Interpretation abnormal ECG. When compared to previous EKG there are: no significant change - Radiology Data Radiology results: report reviewed, image reviewed Two-view chest x-ray was obtained. Report was reviewed in its entirety. Impression per Dr. Guerra is normal chest. No change. Disposition Clinical Impression: Sensation of foreign body in esophagus Disposition: HOME SELF-CARE Condition: Stable Instructions (If sedation given, give patient instructions): Normal Exam (ED) Additional Instructions: Continue taking your home medications as prescribed. Monitor and record your heart rate and blood pressure. Follow-up with your PCP for a recheck by the end of the week. Return to the emergency department with any new, worsening, or concerning symptoms. Is patient prescribed a controlled substance at d/c from ED?: No Referrals: Lou Eastman MD [Primary Care Provider] - 1-2 days Time of Disposition: 03:07
[2021-12-02] MEDS ORDERED: MAG HYDROX/AL HYDROX/SIMETH 30 ML, HYOSCYAMINE ELIXIR 10 ML, LIDOCAINE VISCOUS 2% 10 ML PO STA ×3 (02:10)
[2021-12-02 03:30] VITALS: BP 111/78; PULSE 93; RESP 18
== END 2021-12-02 03:30 | disposition home or self-care (01) ==
LOC: EC 21:00
DX: R09.89 Other specified symptoms and signs involving the circulatory and respiratory systems (principal); I10 Essential (primary) hypertension; J45.909 Unspecified asthma, uncomplicated; Z86.711 Personal history of pulmonary embolism; Z79.01 Long term (current) use of anticoagulants; Z79.51 Long term (current) use of inhaled steroids; Z79.899 Other long term (current) drug therapy
CPT/HCPCS: 36415; 71046; 80053; 84484; 85025; 93005; 99284

== ENCOUNTER 2021-12-04 03:28 | Emergency (ER) | payer OTHER ==
[2021-12-04 03:33] VITALS: BP 126/81; RESP 16; TEMP 98.3
--- NOTE | 2021-12-04 04:00 | ED ---
Dizziness HPI - General Chief Complaint: Dizziness Stated Complaint: RT flank pain, dizziness Time Seen by Provider: 12/04/21 03:47 Source: patient, RN notes reviewed, old records reviewed Mode of arrival: ambulatory Limitations: no limitations - History of Present Illness Initial Comments: This is a 26-year-old female to the ER for evaluation patient presents today for evaluation regards to some chest pain and elevated heart rate. She does admit to possible mild underlying anxiety no nausea no vomiting, recent medical history is significant for PE which she is currently on anticoagulation for. Also at times feels dizzy she feels like her heart is racing she feels like her asthma is increasing shortness of breath is increasing heart rate is increasing. At around to the ER patient states all symptoms are pretty much improved MD Complaint: dizziness, lightheadedness -: hour(s) Timing: awoke with symptoms Description: lightheadedness History of Same: Yes History of Trauma: No Severity: mild Improves With: nothing Worsens With: nothing Associated Symptoms: chest pain (With cough and congestion), shortness of breath (History of asthma and current PE) - Related Data Home Medications Medication Instructions Recorded Confirmed Albuterol Nebulized [Ventolin 2.5 mg INHALATION RT-Q6H PRN 03/10/21 10/26/21 Nebulized] Pnv,Calcium 72/Iron/Folic Acid 1 tab PO DAILY 03/27/21 10/26/21 [ Plus Tablet] NIFEdipine XL [Procardia XL] 30 mg PO DAILY 09/26/21 10/26/21 methylPREDNISolone Dose Pack See Taper PO DIRECTED 10/26/21 10/26/21 [Medrol Dose Pack] Previous Rx's Medication Instructions Recorded Albuterol Inhaler [Ventolin Hfa 2 puff INHALATION RT-QID PRN #1 12/02/19 Inhaler] inhaler Ferrous Sulfate [Iron (65 MG 325 mg PO BID-W/MEALS #60 tab 10/16/21 Elemental)] Ibuprofen [Motrin] 600 mg PO Q6H PRN #40 tab 10/16/21 Labetalol [Trandate] 100 mg PO BID #60 tab 10/16/21 oxyCODONE HCL [OxyIR] 5 mg PO Q4HR PRN #18 tab 10/16/21 Apixaban [Eliquis] 10 mg PO BID 30 Days #60 tab 10/20/21 Allergies Allergy/AdvReac Type Severity Reaction Status Date / Time amoxicillin [Amoxicillin] Allergy Anaphylaxis Verified 12/04/21 03:30 Review of Systems ROS Statement: Those systems with pertinent positive or pertinent negative responses have been documented in the HPI. ROS Other: All systems not noted in ROS Statement are negative. Past Medical History Past Medical History: Asthma, Hypertension, Pulmonary Embolus (PE) Additional Past Medical History / Comment(s): Chronic asthma, lung collapse (April 2019), preclampsia History of Any Multi-Drug Resistant Organisms: None Reported Past Surgical History: Section Additional Past Surgical History / Comment(s): [place] tooth extraction Past Anesthesia/Blood Transfusion Reactions: No Reported Reaction Additional Past Anesthesia/Blood Transfusion Reaction / Comment(s): no anesthesia or blood before Past Psychological History: No Psychological Hx Reported Smoking Status: Never smoker Past Alcohol Use History: None Reported Past Drug Use History: None Reported - Past Family History Father Family Medical History: Asthma Mother Family Medical History: No Reported History General Exam Limitations: no limitations General appearance: alert, in no apparent distress Head exam: Present: atraumatic, normocephalic, normal inspection Eye exam: Present: normal appearance, PERRL, EOMI. Absent: scleral icterus, conjunctival injection, periorbital swelling ENT exam: Present: normal exam, mucous membranes moist Neck exam: Present: normal inspection. Absent: tenderness, meningismus, lymphadenopathy Respiratory exam: Present: normal lung sounds bilaterally. Absent: respiratory distress, wheezes, rales, rhonchi, stridor Cardiovascular Exam: Present: normal rhythm, tachycardia, normal heart sounds. Absent: systolic murmur, diastolic murmur, rubs, gallop, clicks GI/Abdominal exam: Present: soft, normal bowel sounds. Absent: distended, tenderness, guarding, rebound, rigid Extremities exam: Present: normal inspection, full ROM, normal capillary refill. Absent: tenderness, pedal edema, joint swelling, calf tenderness Back exam: Present: normal inspection Neurological exam: Present: alert, oriented X3, CN II-XII intact Psychiatric exam: Present: normal affect, normal mood Skin exam: Present: warm, dry, intact, normal color. Absent: rash Course Vital Signs 12/04/21 12/04/21 12/04/21 03:30 04:34 04:44 Temperature 98.3 F Pulse Rate 105 H 84 84 Respiratory 16 Rate Blood Pressure 126/81 O2 Sat by Pulse 99 Oximetry 12/04/21 12/04/21 04:55 05:15 Temperature Pulse Rate 90 Respiratory Rate Blood Pressure O2 Sat by Pulse 98 98 Oximetry - Reevaluation(s) Reevaluation #1: 12/04/21 Medical record is reviewed Reevaluation #2: 12/04/21 Patient states upon arrival to ER symptoms did improve heart rate did improve and she has no current shortness of breath or chest pain Reevaluation #3: 12/04/21 Patient informed of results questions answered will follow-up with primary care today EKG Findings - EKG Comments: EKG Findings:: EKG shows sinus rhythm 88 IA 170 QRS 88 QTc 413 Medical Decision Making - Medical Decision Making 26 female well-known to our emergency department and recently of a significant medical illness coming in for evaluation of some dizziness pain pain when he takes deep breath and coughs. Patient does have known diagnosis of PE is in no acute distress. and can be discharged home - Radiology Data Radiology results: report reviewed (Chest x-rays negative for acute disease), image reviewed Disposition Clinical Impression: Tachycardia Disposition: HOME SELF-CARE Condition: Good Instructions (If sedation given, give patient instructions): Dizziness (ED) Is patient prescribed a controlled substance at d/c from ED?: No Referrals: Lou Eastman MD [Primary Care Provider] - 1-2 days Time of Disposition: 04:55
[2021-12-04] MEDS ORDERED: IPRATROPIUM-ALBUTEROL 3 ML NEB INHALATION STA (04:19)
[2021-12-04] MEDS ORDERED: IBUPROFEN 600 MG TAB PO STA (04:19)
[2021-12-04] MEDS ORDERED: dexAMETHasone 2 MG TAB PO STA (04:19)
--- NOTE | 2021-12-04 04:45 | XR ---
EXAMINATION TYPE: XR chest 1V portable DATE OF EXAM: 12/04/2021 COMPARISON: 12/02/2021 HISTORY: Cough TECHNIQUE: FINDINGS: Heart is normal. Lungs are clear. Diaphragm is normal. Bony thorax appears normal. No pleur al effusion. IMPRESSION: Normal chest. No change.
[2021-12-04 04:56] VITALS: PULSE 90
== END 2021-12-04 05:19 | disposition home or self-care (01) ==
LOC: EC 03:28
DX: R00.0 Tachycardia, unspecified (principal); J45.909 Unspecified asthma, uncomplicated; I10 Essential (primary) hypertension; Z79.51 Long term (current) use of inhaled steroids; Z88.0 Allergy status to penicillin; Z79.01 Long term (current) use of anticoagulants
CPT/HCPCS: 94640; 93005; 71045; 99285; J8540

== ENCOUNTER 2022-03-01 03:04 | Emergency (ER) | payer OTHER ==
[2022-03-01 03:12] VITALS: TEMP 98.3
[2022-03-01] MEDS ORDERED: IPRATROPIUM-ALBUTEROL 3 ML NEB INHALATION STA (04:11)
[2022-03-01] MEDS ORDERED: predniSONE 50 MG TAB PO STA (04:11)
--- NOTE | 2022-03-01 04:57 | XR ---
EXAMINATION TYPE: XR chest 1V portable DATE OF EXAM: 03/01/2022 COMPARISON: 02/18/2022 HISTORY: Short of breath TECHNIQUE: FINDINGS: There is no heart failure nor confluent pneumonic infiltrate. Heart size is normal. No pleu ral effusion. Bony thorax is intact. IMPRESSION: Normal chest. No change.
--- NOTE | 2022-03-01 05:06 | ED ---
General Adult HPI - General Chief complaint: Shortness of Breath Stated complaint: SOB, dizziness Time Seen by Provider: 03/01/22 04:05 Source: patient, RN notes reviewed, old records reviewed Mode of arrival: wheelchair Limitations: no limitations - History of Present Illness Initial comments: Patient is a 27-year-old female presents emergency department over concern for an asthma exacerbation. States she was seen a few weeks ago diagnosed with bronchitis. Was feeling improved but over the last few days feels like her wheezing has gotten worse. Has a dry cough. Has active wheezing. Does have a remote history of a provoked PE related to . Denies any chest pain, abdominal pain, nausea, vomiting. His no other acute complaints at this time. Denies any sick contacts. Denies anyrunny nose. Is requesting steroids. - Related Data Home Medications Medication Instructions Recorded Confirmed Albuterol Nebulized [Ventolin 2.5 mg INHALATION RT-Q6H PRN 03/10/21 10/26/21 Nebulized] Vit No.180/Iron/Folic 1 tab PO DAILY 03/27/21 10/26/21 [ Plus Vitamin-Mineral] NIFEdipine XL [Procardia XL] 30 mg PO DAILY 09/26/21 10/26/21 methylPREDNISolone Dose Pack See Taper PO DIRECTED 10/26/21 10/26/21 [Medrol Dose Pack] Previous Rx's Medication Instructions Recorded Albuterol Inhaler [Ventolin Hfa 2 puff INHALATION RT-QID PRN #1 12/02/19 Inhaler] inhaler Ferrous Sulfate [Iron (65 MG 325 mg PO BID-W/MEALS #60 tab 10/16/21 Elemental)] Ibuprofen [Motrin] 600 mg PO Q6H PRN #40 tab 10/16/21 Labetalol [Trandate] 100 mg PO BID #60 tab 10/16/21 oxyCODONE HCL [OxyIR] 5 mg PO Q4HR PRN #18 tab 10/16/21 Apixaban [Eliquis] 10 mg PO BID 30 Days #60 tab 10/20/21 Azithromycin [Zithromax Z Pack] 1 tab PO DIRECTED #6 tab 02/18/22 predniSONE 50 mg PO DAILY #5 tab 02/18/22 Albuterol Inhaler [Ventolin Hfa 2 puff INHALATION RT-TID #8 gm 03/01/22 Inhaler] predniSONE [Deltasone] 40 mg PO DAILY 5 Days #10 tab 03/01/22 Allergies Allergy/AdvReac Type Severity Reaction Status Date / Time amoxicillin [Amoxicillin] Allergy Anaphylaxis Verified 03/01/22 03:09 Review of Systems ROS Statement: Those systems with pertinent positive or pertinent negative responses have been documented in the HPI. Review of Systems: CONST: Denies fever EYES: Denies blurry vision ENT: Denies nasal congestion C/V: Denies Chest pain RESP: Endorses wheezing GI: Denies abdominal pain : Denies dysuria SKIN: Denies rash. MSK: Denies joint pain. NEURO: Denies headache ROS Other: All systems not noted in ROS Statement are negative. Past Medical History Past Medical History: Asthma, Hypertension, Pulmonary Embolus (PE) Additional Past Medical History / Comment(s): Chronic asthma, lung collapse (April 2019), preclampsia History of Any Multi-Drug Resistant Organisms: None Reported Past Surgical History: Section Additional Past Surgical History / Comment(s): [place] tooth extraction Past Anesthesia/Blood Transfusion Reactions: No Reported Reaction Additional Past Anesthesia/Blood Transfusion Reaction / Comment(s): no anesthesia or blood before Past Psychological History: No Psychological Hx Reported Smoking Status: Never smoker Past Alcohol Use History: None Reported Past Drug Use History: None Reported - Past Family History Father Family Medical History: Asthma Mother Family Medical History: No Reported History General Exam - General Exam Comments Initial Comments: General: Appears in no acute distress. HEAD: Normal with no signs of head trauma. EYES: EOMI ENT: Hearing grossly intact, normal oropharynx. RESPIRATORY: Bilateral end expiratory wheezing. No hypoxia. No increased work of breathing. C/V: Regular rate and rhythm. S1 and S2 auscultated, peripheral pulses 2+ and intact throughout ABD: Abdomen is nondistended. EXT: Normal range of motion, no obvious deformity SKIN: No rashes or lesions observed on exposed skin. NEURO: Alert and oriented 4. Limitations: no limitations Course Vital Signs 03/01/22 03/01/22 03/01/22 03:09 05:15 05:32 Temperature 98.3 F Pulse Rate 93 92 88 Respiratory 16 Rate Blood Pressure 115/82 O2 Sat by Pulse 98 Oximetry Medical Decision Making - Medical Decision Making Based on the patient's presentation and physical exam, I'm concerned that she is having an asthma exacerbation. She has no productive cough to suggest bronchitis. She is bilateral end expiratory wheezing. We'll obtain a chest x- ray as well as provide her with a dose of steroids and breathing treatment. She was in agreement this plan. Vital signs are within normal limits. No respiratory distress. Chest x-ray shows no signs of acute cardiopulmonary process. Patient's wheezing is improved following breathing treatment. I believe it is safer to be discharged home at this time. She'll be sent home with steroids as well as an inhaler. She was in agreement this plan. I will provide the patient with a prescription for prednisone, albuterol. I instructed the patient to follow up with their PCP in the next 1-3 days. I explained that the patient should return to the emergency department if they experience any worsening symptoms. Strict return precautions were discussed with the patient. The patient expressed understanding of these instructions. I answered all questions that the patient had. The patient was discharged home in good condition with their prescriptions and follow up information. Disposition Clinical Impression: Asthma exacerbation Disposition: HOME SELF-CARE Condition: Good Instructions (If sedation given, give patient instructions): Asthma (ED) Prescriptions: predniSONE [Deltasone] 40 mg PO DAILY 5 Days #10 tab Albuterol Inhaler [Ventolin Hfa Inhaler] 2 puff INHALATION RT-TID #8 gm Is patient prescribed a controlled substance at d/c from ED?: No Referrals: Lou Eastman MD [Primary Care Provider] - 1-2 days Time of Disposition: 05:30
[2022-03-01 05:33] VITALS: PULSE 88
[2022-03-01 05:43] VITALS: BP 139/56; RESP 18
== END 2022-03-01 05:41 | disposition home or self-care (01) ==
LOC: EC 03:04
DX: J45.901 Unspecified asthma with (acute) exacerbation (principal); I10 Essential (primary) hypertension; Z88.0 Allergy status to penicillin; Z79.899 Other long term (current) drug therapy
CPT/HCPCS: 94640; 71045; 99284; J7512

== ENCOUNTER 2022-04-24 21:22 | Emergency (ER) | payer OTHER ==
[2022-04-24 21:32] VITALS: TEMP 97.7
[2022-04-24] MEDS ORDERED: KETOROLAC 15 MG/ML 1 ML VIAL IVP STA (22:14)
[2022-04-24] MEDS ORDERED: ONDANSETRON 4 MG/2 ML VIAL IVP STA (22:14)
[2022-04-24] MEDS ORDERED: SODIUM CHLORIDE 0.9% 1,000 ML IV STA (22:14)
--- NOTE | 2022-04-24 23:17 | ED ---
General Adult HPI - General Chief complaint: Recheck/Abnormal Lab/Rx Stated complaint: Dizzy,nausea Time Seen by Provider: 04/24/22 21:51 Source: patient, RN notes reviewed Mode of arrival: ambulatory Limitations: no limitations - History of Present Illness Initial comments: 27-year-old female presents to the emergency Department for evaluation of heada nate and dizziness, onset this morning. Patient is concerned about possible carbon monoxide exposure. She explains that the smoke detectors in her home went off to 2 times yesterday for a duration of 2 minutes each. States there was no visible smoke in the home and no source of smoke. States this occurred again today therefore patient left the home. Patient is unsure if she has a carbon monoxide detector in the home. States she has 4 children living in the home who are well appearing, behaving at baseline, and show no signs of illness. Patient states she is able to tolerate oral intake without difficulty. Is able to ambulate without difficulty and is able to adequately care for her children. Reports headache is moderate in intensity, but is not accompanied by nausea, vomiting, or sensitivity to light. Has some vague complaints of dizziness. Denies fever, chills, sore throat, cough, congestion, abdominal pain, vomiting, diarrhea, or dysuria. - Related Data Home Medications Medication Instructions Recorded Confirmed Albuterol Nebulized [Ventolin 2.5 mg INHALATION RT-Q6H PRN 03/10/21 10/26/21 Nebulized] Vit No.180/Iron/Folic 1 tab PO DAILY 03/27/21 10/26/21 [ Plus Vitamin-Mineral] NIFEdipine XL [Procardia XL] 30 mg PO DAILY 09/26/21 10/26/21 methylPREDNISolone Dose Pack See Taper PO DIRECTED 10/26/21 10/26/21 [Medrol Dose Pack] Previous Rx's Medication Instructions Recorded Albuterol Inhaler [Ventolin Hfa 2 puff INHALATION RT-QID PRN #1 12/02/19 Inhaler] inhaler Ferrous Sulfate [Iron (65 MG 325 mg PO BID-W/MEALS #60 tab 10/16/21 Elemental)] Ibuprofen [Motrin] 600 mg PO Q6H PRN #40 tab 10/16/21 Labetalol [Trandate] 100 mg PO BID #60 tab 10/16/21 oxyCODONE HCL [OxyIR] 5 mg PO Q4HR PRN #18 tab 10/16/21 Apixaban [Eliquis] 10 mg PO BID 30 Days #60 tab 10/20/21 Azithromycin [Zithromax Z Pack] 1 tab PO DIRECTED #6 tab 02/18/22 predniSONE 50 mg PO DAILY #5 tab 02/18/22 Albuterol Inhaler [Ventolin Hfa 2 puff INHALATION RT-TID #8 gm 03/01/22 Inhaler] predniSONE [Deltasone] 40 mg PO DAILY 5 Days #10 tab 03/01/22 Allergies Allergy/AdvReac Type Severity Reaction Status Date / Time amoxicillin [Amoxicillin] Allergy Anaphylaxis Verified 04/24/22 21:32 Review of Systems ROS Statement: Those systems with pertinent positive or pertinent negative responses have been documented in the HPI. ROS Other: All systems not noted in ROS Statement are negative. Past Medical History Past Medical History: Asthma, Hypertension, Pulmonary Embolus (PE) Additional Past Medical History / Comment(s): Chronic asthma, lung collapse (April 2019), preclampsia History of Any Multi-Drug Resistant Organisms: None Reported Past Surgical History: Section Additional Past Surgical History / Comment(s): [place] tooth extraction Past Anesthesia/Blood Transfusion Reactions: No Reported Reaction Additional Past Anesthesia/Blood Transfusion Reaction / Comment(s): no anesthesia or blood before Past Psychological History: No Psychological Hx Reported Smoking Status: Never smoker Past Alcohol Use History: None Reported Past Drug Use History: None Reported - Past Family History Father Family Medical History: Asthma Mother Family Medical History: No Reported History General Exam Limitations: no limitations (Well-developed, well-nourished female in no acute distress. Initial temperature 97.7, pulse 80, respirations 20, blood pressure 150/90, pulse ox 99% on room air.) General appearance: alert, in no apparent distress Head exam: Present: atraumatic, normocephalic, normal inspection Eye exam: Present: normal appearance, PERRL, EOMI. Absent: scleral icterus, conjunctival injection, periorbital swelling ENT exam: Present: normal exam, normal oropharynx, mucous membranes moist Neck exam: Present: normal inspection, full ROM. Absent: tenderness, meningismus, lymphadenopathy Respiratory exam: Present: normal lung sounds bilaterally. Absent: respiratory distress, wheezes, rales, rhonchi, stridor, chest wall tenderness Cardiovascular Exam: Present: regular rate, normal rhythm, normal heart sounds. Absent: systolic murmur, diastolic murmur, rubs, gallop, clicks GI/Abdominal exam: Present: soft, normal bowel sounds. Absent: distended, tenderness, guarding, rebound, rigid Neurological exam: Present: alert, oriented X3, CN II-XII intact Expanded Patient oriented to: Present: person, place, time Speech: Present: fluid speech Cranial nerves: EOM's Intact: Normal Motor strength exam: RUE: 5, LUE: 5, RLE: 5, LLE: 5 Eye Response: (4) open spontaneously Motor Response: (6) obeys commands Verbal Response: (5) oriented Shell Total: 15 Psychiatric exam: Present: normal affect, normal mood Skin exam: Present: warm, dry, intact, normal color. Absent: rash Course Vital Signs 04/24/22 04/24/22 04/25/22 21:24 21:54 00:39 Temperature 97.7 F Pulse Rate 80 93 72 Respiratory 20 20 16 Rate Blood Pressure 150/90 143/96 115/84 O2 Sat by Pulse 99 100 100 Oximetry 04/25/22 01:42 Temperature Pulse Rate 81 Respiratory 16 Rate Blood Pressure 132/90 O2 Sat by Pulse 99 Oximetry - Reevaluation(s) Reevaluation #1: 04/24/22 22:30 Discussed living situation and safety at length with patient. She is able to stay with her grandmother, has been in contact with her landlord, and is aware of the importance of both smoke and CO detectors Medical Decision Making - Medical Decision Making This is a well-appearing 27 year old female with concerns of possible CO exposure. Physical examine findings are unremarkable. Laboratory studies are negative. Given patient's headache and mild dizziness, she was given Toradol and IV fluids with improvement. She is tolerating oral intake. We discussed safety of living situation at length and patient will be returning to her grandmother's house this evening. Encouraged to follow up with her PCP if needed for recheck. Return parameters discussed in detail. Patient verbalizes understanding and agrees with this plan. Attending: Philippe. - Lab Data Result diagrams: 04/24/22 23:05 04/24/22 23:05 Lab Results 04/24/22 04/24/22 04/24/22 Range/Units 23:05 23:05 23:05 WBC 10.2 (3.8-10.6) k/uL RBC 4.22 (3.80-5.40) m/uL Hgb 13.4 (11.4-16.0) gm/dL Hct 39.9 (34.0-46.0) % MCV 94.4 (80.0-100.0) fL MCH 31.8 (25.0-35.0) pg MCHC 33.7 (31.0-37.0) g/dL RDW 12.4 (11.5-15.5) % Plt Count 337 (150-450) k/uL MPV 7.6 Neutrophils % 54 % Lymphocytes % 36 % Monocytes % 6 % Eosinophils % 3 % Basophils % 0 % Neutrophils # 5.5 (1.3-7.7) k/uL Lymphocytes # 3.6 (1.0-4.8) k/uL Monocytes # 0.6 (0-1.0) k/uL Eosinophils # 0.3 (0-0.7) k/uL Basophils # 0.0 (0-0.2) k/uL VBG pH (7.31-7.41) VBG pCO2 (37-51) mmHg VBG HCO3 (24-28) mmol/L Carbon Monoxide, Quant 1.5 (<10.0) % Sodium 138 (137-145) mmol/L Potassium 4.5 (3.5-5.1) mmol/L Chloride 100 (98-107) mmol/L Carbon Dioxide 25 (22-30) mmol/L Anion Gap 13 mmol/L BUN 18 H (7-17) mg/dL Creatinine 0.80 (0.52-1.04) mg/dL Est GFR (CKD-EPI)AfAm >90 (>60 ml/min/1.73 sqM) Est GFR (CKD-EPI)NonAf >90 (>60 ml/min/1.73 sqM) Glucose 102 H (74-99) mg/dL Calcium 9.5 (8.4-10.2) mg/dL Total Bilirubin 0.1 L (0.2-1.3) mg/dL AST 17 (14-36) U/L ALT 14 (4-34) U/L Alkaline Phosphatase 68 (38-126) U/L Total Protein 7.5 (6.3-8.2) g/dL Albumin 4.7 (3.5-5.0) g/dL Influenza Type A (PCR) (Not Detectd) Influenza Type B (PCR) (Not Detectd) RSV (PCR) (Not Detectd) SARS-CoV-2 (PCR) (Not Detectd) 04/24/22 04/24/22 Range/Units 23:05 23:05 WBC (3.8-10.6) k/uL RBC (3.80-5.40) m/uL Hgb (11.4-16.0) gm/dL Hct (34.0-46.0) % MCV (80.0-100.0) fL MCH (25.0-35.0) pg MCHC (31.0-37.0) g/dL RDW (11.5-15.5) % Plt Count (150-450) k/uL MPV Neutrophils % % Lymphocytes % % Monocytes % % Eosinophils % % Basophils % % Neutrophils # (1.3-7.7) k/uL Lymphocytes # (1.0-4.8) k/uL Monocytes # (0-1.0) k/uL Eosinophils # (0-0.7) k/uL Basophils # (0-0.2) k/uL VBG pH 7.33 (7.31-7.41) VBG pCO2 54 H (37-51) mmHg VBG HCO3 28 (24-28) mmol/L Carbon Monoxide, Quant (<10.0) % Sodium (137-145) mmol/L Potassium (3.5-5.1) mmol/L Chloride (98-107) mmol/L Carbon Dioxide (22-30) mmol/L Anion Gap mmol/L BUN (7-17) mg/dL Creatinine (0.52-1.04) mg/dL Est GFR (CKD-EPI)AfAm (>60 ml/min/1.73 sqM) Est GFR (CKD-EPI)NonAf (>60 ml/min/1.73 sqM) Glucose (74-99) mg/dL Calcium (8.4-10.2) mg/dL Total Bilirubin (0.2-1.3) mg/dL AST (14-36) U/L ALT (4-34) U/L Alkaline Phosphatase (38-126) U/L Total Protein (6.3-8.2) g/dL Albumin (3.5-5.0) g/dL Influenza Type A (PCR) Not Detected (Not Detectd) Influenza Type B (PCR) Not Detected (Not Detectd) RSV (PCR) Not Detected (Not Detectd) SARS-CoV-2 (PCR) Not Detected (Not Detectd) Disposition Clinical Impression: Headache Disposition: HOME SELF-CARE Condition: Stable Instructions (If sedation given, give patient instructions): Acute Headache (ED) Additional Instructions: Increase intake of fluids. May take Tylenol or Motrin if needed for headache discomfort. Continue to stay with her grandmother until you are able to confirm with her landlord may smoke detectors and carbon monoxide detectors are in proper working order. The local fire department may be able to assist you in carbon monoxide detection in the home. Follow-up with your PCP for a recheck this week as needed. Return to the emergency department with any new, worsening, or concerning symptoms. Is patient prescribed a controlled substance at d/c from ED?: No Referrals: None,Stated [Primary Care Provider] - 1-2 days Time of Disposition: 01:11
[2022-04-25] LABS: Basophils % (A) 0 %; Eosinophils # (A) 0.3 k/uL (0-0.7); Eosinophils % (A) 3 %; HCT 39.9 % (34.0-46.0); HGB 13.4 gm/dL (11.4-16.0); Lymphocytes # (A) 3.6 k/uL (1.0-4.8); Lymphocytes % (A) 36 %; MCH 31.8 pg (25.0-35.0); MCHC 33.7 g/dL (31.0-37.0); MCV 94.4 fL (80.0-100.0); Mean Platelet Volume 7.6; Monocytes # (A) 0.6 k/uL (0-1.0); Monocytes % (A) 6 %; Neutrophils # (A) 5.5 k/uL (1.3-7.7); Neutrophils % (A) 54 %; Platelet Count 337 k/uL (150-450); RBC 4.22 m/uL (3.80-5.40); RDW 12.4 % (11.5-15.5); WBC 10.2 k/uL (3.8-10.6)
[2022-04-25 00:02] LABS: ALT 14 U/L (4-34); AST 17 U/L (14-36); African American GFR (CKD) >90 (>60 ml/min/1.73 sqM); Albumin 4.7 g/dL (3.5-5.0); Alkaline Phosphatase 68 U/L (38-126); Anion Gap 13 mmol/L; Blood Urea Nitrogen 18 mg/dL (7-17); Calcium 9.5 mg/dL (8.4-10.2); Carbon Dioxide 25 mmol/L (22-30); Chloride 100 mmol/L (98-107); Glucose 102 mg/dL (74-99); Non-African American GFR(CKD) >90 (>60 ml/min/1.73 sqM); Potassium 4.5 mmol/L (3.5-5.1); Sodium 138 mmol/L (137-145); Total Bilirubin 0.1 mg/dL (0.2-1.3); Total Protein 7.5 g/dL (6.3-8.2)
[2022-04-25 00:12] LABS: VBG PH 7.33 (7.31-7.41)
[2022-04-25 00:43] VITALS: RESP 16
[2022-04-25 01:44] VITALS: BP 132/90; PULSE 81
== END 2022-04-25 01:43 | disposition home or self-care (01) ==
LOC: EC 21:22
DX: R51.9 Headache, unspecified (principal); R42 Dizziness and giddiness; J45.909 Unspecified asthma, uncomplicated; I10 Essential (primary) hypertension; Z88.0 Allergy status to penicillin; Z79.51 Long term (current) use of inhaled steroids; Z79.899 Other long term (current) drug therapy; Z20.822 Contact with and (suspected) exposure to COVID-19
CPT/HCPCS: 36415; 80053; 82375; 82803; 85025; 87636; 99284; 96374; 96375; 96361 ×2; J2405; J1885

== ENCOUNTER 2022-06-23 17:56 | Emergency (ER) | payer OTHER ==
[2022-06-23 18:14] VITALS: BP 139/71; PULSE 91; RESP 18; TEMP 98.2
== END 2022-06-23 21:40 | disposition left against medical advice (07) ==
LOC: EC 17:56
DX: Z53.21 Procedure and treatment not carried out due to patient leaving prior to being seen by health care provider (principal)
CPT/HCPCS: 93005; 99499

== ENCOUNTER 2023-01-20 01:12 | Emergency (ER) | payer OTHER ==
[2023-01-20 01:20] VITALS: TEMP 98.3
[2023-01-20] MEDS ORDERED: SODIUM CHLORIDE 0.9% 1,000 ML IV STA (01:42)
[2023-01-20] MEDS ORDERED: MECLIZINE 12.5 MG TAB PO STA (01:42)
[2023-01-20] MEDS ORDERED: IPRATROPIUM-ALBUTEROL 3 ML NEB INHALATION STA (02:16)
--- NOTE | 2023-01-20 02:19 | ED ---
General Adult HPI - General Source: patient Mode of arrival: ambulatory Limitations: no limitations <Malcolm Shoemaker - Last Filed: 01/20/23 04:17> <Chris Paez - Last Filed: 01/20/23 05:17> - General Chief complaint: Shortness of Breath Stated complaint: Hypertension, SOB, dizziness Time Seen by Provider: 01/20/23 01:22 - History of Present Illness Initial comments: 27-year-old female presenting with chief complaint of dizziness. Patient has had intermittent dizziness ongoing for the last 4 days. She also notes episodes of neck pain and shortness of breath. Pain is located on the right side of the neck and feels like a tightness. Patient does have history of asthma, states it does not feel like her regular asthma exacerbation. Patient was seen here recently for similar complaints, it was felt the patient had not been taking her antihypertensives at home due to concerns for her blood pressure being too low and she was found to have rebound hypertension. (Malcolm Shoemaker) - Related Data Home Medications Medication Instructions Recorded Confirmed Albuterol Nebulized [Ventolin 2.5 mg INHALATION RT-Q6H PRN 03/10/21 10/26/21 Nebulized] Vit No.180/Iron/Folic 1 tab PO DAILY 03/27/21 10/26/21 [ Plus Vitamin-Mineral] NIFEdipine XL [Procardia XL] 30 mg PO DAILY 09/26/21 10/26/21 methylPREDNISolone Dose Pack See Taper PO DIRECTED 10/26/21 10/26/21 [Medrol Dose Pack] Previous Rx's Medication Instructions Recorded Albuterol Inhaler [Ventolin Hfa 2 puff INHALATION RT-QID PRN #1 12/02/19 Inhaler] inhaler Ferrous Sulfate [Iron (65 MG 325 mg PO BID-W/MEALS #60 tab 10/16/21 Elemental)] Ibuprofen [Motrin] 600 mg PO Q6H PRN #40 tab 10/16/21 Labetalol [Trandate] 100 mg PO BID #60 tab 10/16/21 oxyCODONE HCL [OxyIR] 5 mg PO Q4HR PRN #18 tab 10/16/21 Apixaban [Eliquis] 10 mg PO BID 30 Days #60 tab 10/20/21 Azithromycin [Zithromax Z Pack] 1 tab PO DIRECTED #6 tab 02/18/22 predniSONE 50 mg PO DAILY #5 tab 02/18/22 Albuterol Inhaler [Ventolin Hfa 2 puff INHALATION RT-TID #8 gm 03/01/22 Inhaler] predniSONE [Deltasone] 40 mg PO DAILY 5 Days #10 tab 03/01/22 Allergies Allergy/AdvReac Type Severity Reaction Status Date / Time amoxicillin [Amoxicillin] Allergy Anaphylaxis Verified 01/20/23 01:20 Review of Systems ROS Other: All systems not noted in ROS Statement are negative. <Malcolm Shoemaker - Last Filed: 01/20/23 04:17> ROS Other: All systems not noted in ROS Statement are negative. <Chris Paez - Last Filed: 01/20/23 05:17> ROS Statement: Those systems with pertinent positive or pertinent negative responses have been documented in the HPI. Past Medical History Past Medical History: Asthma, Hypertension, Pulmonary Embolus (PE) Additional Past Medical History / Comment(s): Chronic asthma, lung collapse (April 2019), preclampsia History of Any Multi-Drug Resistant Organisms: None Reported Past Surgical History: Section Additional Past Surgical History / Comment(s): [place] tooth extraction Past Anesthesia/Blood Transfusion Reactions: No Reported Reaction Additional Past Anesthesia/Blood Transfusion Reaction / Comment(s): no anesthesia or blood before Past Psychological History: No Psychological Hx Reported Smoking Status: Never smoker Past Alcohol Use History: None Reported Past Drug Use History: None Reported - Past Family History Father Family Medical History: Asthma Mother Family Medical History: No Reported History <Malcolm Shoemaker - Last Filed: 01/20/23 04:17> General Exam Limitations: no limitations General appearance: alert, in no apparent distress Head exam: Present: atraumatic, normocephalic, normal inspection Eye exam: Present: normal appearance Neck exam: Present: normal inspection, tenderness (Right-sided), full ROM. Absent: meningismus Respiratory exam: Present: normal lung sounds bilaterally. Absent: respiratory distress, wheezes, rales, rhonchi, stridor Cardiovascular Exam: Present: regular rate, normal rhythm, normal heart sounds. Absent: systolic murmur, diastolic murmur, rubs, gallop, clicks Neurological exam: Present: alert, oriented X3, CN II-XII intact Psychiatric exam: Present: normal affect, normal mood Skin exam: Present: warm, dry, intact, normal color. Absent: rash <Malcolm Shoemaker - Last Filed: 01/20/23 04:17> Course Vital Signs 01/20/23 01/20/23 01/20/23 01:17 02:36 02:44 Temperature 98.3 F Pulse Rate 104 H 104 H 106 H Respiratory 18 Rate Blood Pressure 153/106 O2 Sat by Pulse 100 Oximetry 01/20/23 04:44 Temperature Pulse Rate 96 Respiratory 16 Rate Blood Pressure 143/101 O2 Sat by Pulse 95 Oximetry EKG Findings - EKG Comments: EKG Findings:: Sinus rhythm ventricular rate 93. [place] interval 199. QRS 87. QT 344. QTC 395. No ST deviation or T wave inversion. <Malcolm Shoemaker - Last Filed: 01/20/23 04:17> Medical Decision Making - Lab Data Result diagrams: 01/20/23 01:54 01/20/23 01:54 <Malcolm Shoemaker - Last Filed: 01/20/23 04:17> - Lab Data Result diagrams: 01/20/23 01:54 01/20/23 04:35 <Chris Paez - Last Filed: 01/20/23 05:17> - Medical Decision Making 19-year-old female presenting with multiple complaints, including dizziness, shortness of breath, and right-sided neck pain. On physical examination heart and lungs are clear to auscultation, no focal neurological deficits, and there is paraspinal muscle tenderness on the right side of the neck. Lab work showed hyperkalemia with potassium 5.5. Remainder of lab work is essentially unremarkable. Chest x-rays negative and EKG shows no acute findings. Patient will be admitted for treatment of hyperkalemia. Patient is agreeable with this plan. I discussed this case with my attending Dr. Paez (Malcolm Shoemaker) - Lab Data Lab Results 01/20/23 01/20/23 01/20/23 Range/Units 01:54 01:54 01:54 WBC 8.7 (3.8-10.6) k/uL RBC 4.33 (3.80-5.40) m/uL Hgb 13.6 (11.4-16.0) gm/dL Hct 42.2 (34.0-46.0) % MCV 97.6 (80.0-100.0) fL MCH 31.5 (25.0-35.0) pg MCHC 32.3 (31.0-37.0) g/dL RDW 13.6 (11.5-15.5) % Plt Count 230 (150-450) k/uL MPV 8.0 Neutrophils % 59 % Lymphocytes % 28 % Monocytes % 7 % Eosinophils % 4 % Basophils % 0 % Neutrophils # 5.2 (1.3-7.7) k/uL Lymphocytes # 2.5 (1.0-4.8) k/uL Monocytes # 0.6 (0-1.0) k/uL Eosinophils # 0.4 (0-0.7) k/uL Basophils # 0.0 (0-0.2) k/uL PT 10.1 (9.0-12.0) sec INR 0.9 (<1.2) Sodium (137-145) mmol/L Potassium (3.5-5.1) mmol/L Chloride (98-107) mmol/L Carbon Dioxide (22-30) mmol/L Anion Gap mmol/L BUN (7-17) mg/dL Creatinine (0.52-1.04) mg/dL Est GFR (CKD-EPI)AfAm (>60 ml/min/1.73 sqM) Est GFR (CKD-EPI)NonAf (>60 ml/min/1.73 sqM) Glucose (74-99) mg/dL Plasma Lactic Acid Ari[place] (0.7-2.0) mmol/L Calcium (8.4-10.2) mg/dL Total Bilirubin (0.2-1.3) mg/dL AST (14-36) U/L ALT (4-34) U/L Alkaline Phosphatase (38-126) U/L Total Protein (6.3-8.2) g/dL Albumin (3.5-5.0) g/dL Urine Color Colorless Urine Appearance Clear (Clear) Urine pH 7.0 (5.0-8.0) Ur Specific [place] 1.015 (1.001-1.035) Urine Protein Negative (Negative) Urine Glucose (UA) Negative (Negative) Urine Ketones Negative (Negative) Urine Blood Negative (Negative) Urine Nitrite Negative (Negative) Urine Bilirubin Negative (Negative) Urine Urobilinogen <2.0 (<2.0) mg/dL Ur Leukocyte Esterase Negative (Negative) Urine RBC 0 (0-5) /hpf Urine WBC 0 (0-5) /hpf Urine Bacteria NONE (None) /hpf Urine HCG, Qual (Not Detectd) Urine Opiates Screen Not Detected (NotDetected) Ur Oxycodone Screen Not Detected (NotDetected) Urine Methadone Screen Not Detected (NotDetected) Ur Propoxyphene Screen Not Detected (NotDetected) Ur Barbiturates Screen Not Detected (NotDetected) U Tricyclic Antidepress Not Detected (NotDetected) Ur Phencyclidine Scrn Not Detected (NotDetected) Ur Amphetamines Screen Not Detected (NotDetected) U Methamphetamines Scrn Not Detected (NotDetected) U Benzodiazepines Scrn Not Detected (NotDetected) Urine Cocaine Screen Not Detected (NotDetected) U Marijuana (THC) Screen Not Detected (NotDetected) 01/20/23 01/20/23 01/20/23 Range/Units 01:54 01:54 01:54 WBC (3.8-10.6) k/uL RBC (3.80-5.40) m/uL Hgb (11.4-16.0) gm/dL Hct (34.0-46.0) % MCV (80.0-100.0) fL MCH (25.0-35.0) pg MCHC (31.0-37.0) g/dL RDW (11.5-15.5) % Plt Count (150-450) k/uL MPV Neutrophils % % Lymphocytes % % Monocytes % % Eosinophils % % Basophils % % Neutrophils # (1.3-7.7) k/uL Lymphocytes # (1.0-4.8) k/uL Monocytes # (0-1.0) k/uL Eosinophils # (0-0.7) k/uL Basophils # (0-0.2) k/uL PT (9.0-12.0) sec INR (<1.2) Sodium 139 (137-145) mmol/L Potassium 5.5 H (3.5-5.1) mmol/L Chloride 104 (98-107) mmol/L Carbon Dioxide 27 (22-30) mmol/L Anion Gap 8 mmol/L BUN 13 (7-17) mg/dL Creatinine 0.71 (0.52-1.04) mg/dL Est GFR (CKD-EPI)AfAm >90 (>60 ml/min/1.73 sqM) Est GFR (CKD-EPI)NonAf >90 (>60 ml/min/1.73 sqM) Glucose 112 H (74-99) mg/dL Plasma Lactic Acid Ari[place] 1.3 (0.7-2.0) mmol/L Calcium 9.8 (8.4-10.2) mg/dL Total Bilirubin 0.7 (0.2-1.3) mg/dL AST 31 (14-36) U/L ALT 18 (4-34) U/L Alkaline Phosphatase 50 (38-126) U/L Total Protein 8.1 (6.3-8.2) g/dL Albumin 4.6 (3.5-5.0) g/dL Urine Color Urine Appearance (Clear) Urine pH (5.0-8.0) Ur Specific [place] (1.001-1.035) Urine Protein (Negative) Urine Glucose (UA) (Negative) Urine Ketones (Negative) Urine Blood (Negative) Urine Nitrite (Negative) Urine Bilirubin (Negative) Urine Urobilinogen (<2.0) mg/dL Ur Leukocyte Esterase (Negative) Urine RBC (0-5) /hpf Urine WBC (0-5) /hpf Urine Bacteria (None) /hpf Urine HCG, Qual Not Detected (Not Detectd) Urine Opiates Screen (NotDetected) Ur Oxycodone Screen (NotDetected) Urine Methadone Screen (NotDetected) Ur Propoxyphene Screen (NotDetected) Ur Barbiturates Screen (NotDetected) U Tricyclic Antidepress (NotDetected) Ur Phencyclidine Scrn (NotDetected) Ur Amphetamines Screen (NotDetected) U Methamphetamines Scrn (NotDetected) U Benzodiazepines Scrn (NotDetected) Urine Cocaine Screen (NotDetected) U Marijuana (THC) Screen (NotDetected) Disposition Time of Disposition: 04:17 <Malcolm Shoemaker - Last Filed: 01/20/23 04:17> Is patient prescribed a controlled substance at d/c from ED?: No Time of Disposition: 05:10 <Chris Paez - Last Filed: 01/20/23 05:17> Clinical Impression: Chest pain, Tachycardia, Hypertension Disposition: HOME SELF-CARE Condition: Fair
[2023-01-20 02:36] LABS: Basophils % (A) 0 %; Eosinophils # (A) 0.4 k/uL (0-0.7); Eosinophils % (A) 4 %; HCT 42.2 % (34.0-46.0); HGB 13.6 gm/dL (11.4-16.0); Lymphocytes # (A) 2.5 k/uL (1.0-4.8); Lymphocytes % (A) 28 %; MCH 31.5 pg (25.0-35.0); MCHC 32.3 g/dL (31.0-37.0); MCV 97.6 fL (80.0-100.0); Monocytes # (A) 0.6 k/uL (0-1.0); Monocytes % (A) 7 %; Neutrophils # (A) 5.2 k/uL (1.3-7.7); Neutrophils % (A) 59 %; Platelet Count 230 k/uL (150-450); RBC 4.33 m/uL (3.80-5.40); RDW 13.6 % (11.5-15.5); WBC 8.7 k/uL (3.8-10.6)
[2023-01-20 02:42] LABS: INR 0.9 (<1.2); Prothrombin Time 10.1 sec (9.0-12.0)
[2023-01-20 03:00] LABS: ALT 18 U/L (4-34); AST 31 U/L (14-36); African American GFR (CKD) >90 (>60 ml/min/1.73 sqM); Albumin 4.6 g/dL (3.5-5.0); Alkaline Phosphatase 50 U/L (38-126); Anion Gap 8 mmol/L; Blood Urea Nitrogen 13 mg/dL (7-17); Calcium 9.8 mg/dL (8.4-10.2); Carbon Dioxide 27 mmol/L (22-30); Chloride 104 mmol/L (98-107); Glucose 112 mg/dL (74-99); Non-African American GFR(CKD) >90 (>60 ml/min/1.73 sqM); Potassium 5.5 mmol/L (3.5-5.1); Sodium 139 mmol/L (137-145); Total Bilirubin 0.7 mg/dL (0.2-1.3); Total Protein 8.1 g/dL (6.3-8.2)
[2023-01-20 03:12] LABS: Appearance,Urine Clear (Clear); Color,Urine Colorless; Protein,Urine Negative (Negative); Specific Gravity,Urine 1.015 (1.001-1.035)
[2023-01-20 03:13] LABS: Bilirubin,Urine Negative (Negative); Blood,Urine Negative (Negative); Glucose,Urine (UA) Negative (Negative); Ketones,Urine Negative (Negative); Leukocyte Esterase,Urine Negative (Negative); Nitrite,Urine Negative (Negative); Urobilinogen,Urine <2.0 mg/dL (<2.0)
[2023-01-20 03:15] LABS: Amphetamine Screen,Urine Not Detected (NotDetected); Barbiturate Screen,Urine Not Detected (NotDetected); Benzodiazepines Screen,Urine Not Detected (NotDetected); Cocaine Screen,Urine Not Detected (NotDetected); Methadone Screen, Urine Not Detected (NotDetected); Opiate Screen,Urine Not Detected (NotDetected); Oxycodone Screen, Urine Not Detected (NotDetected); Phencyclidine Screen,Urine Not Detected (NotDetected); Tricyclic Antidepressant,Urine Not Detected (NotDetected); Urn Cannabinoid Scrn Not Detected (NotDetected)
[2023-01-20 03:33] LABS: RBC,Urine 0 /hpf (0-5); WBC,Urine 0 /hpf (0-5)
--- NOTE | 2023-01-20 04:11 | XR ---
EXAM: XR Chest, 2 Views CLINICAL HISTORY: ITS.REASON XR Reason: ANNE TECHNIQUE: Frontal and lateral views of the chest. COMPARISON: Chest radiograph on 03/01/2022 FINDINGS: Hardware: None. Lungs/pleura: Hyperinflation of the lungs. No focal consolidation. No pleural effusion or pneumothorax. Heart/mediastinum: Normal. No cardiomegaly. Soft tissues: Unremarkable. Bones: No acute fracture. Upper abdomen: Normal. IMPRESSION: No acute disease identified.
[2023-01-20] MEDS ORDERED: DEXTROSE 50% SYRINGE 50 ML IVP ONE (04:13)
[2023-01-20] MEDS ORDERED: ALBUTEROL NEB (CONC) 2.5 MG/0.5 ML INHALATION ONE (04:13)
[2023-01-20] MEDS ORDERED: INSULIN REGULAR 100 UNIT/ML VIAL (IV) IV ONE (04:13)
[2023-01-20] MEDS ORDERED: NALOXONE 0.4 MG/ML 1 ML VIAL IV PRN (04:14)
[2023-01-20] MEDS ORDERED: KETOROLAC 15 MG/ML 1 ML VIAL IVP PRN (04:14)
[2023-01-20] MEDS ORDERED: IBUPROFEN 400 MG TAB PO PRN (04:14)
[2023-01-20] MEDS ORDERED: SODIUM CHLORIDE 0.9% 1,000 ML IV SCH (04:15)
[2023-01-20] MEDS ORDERED: ORPHENADRINE 30 MG/ML 2 ML VIAL IVP STA (04:16)
[2023-01-20 04:32] LABS: Glucose,Whole Blood 107 mg/dL (70-110)
[2023-01-20 04:44] VITALS: RESP 16
[2023-01-20 06:05] VITALS: BP 138/98; PULSE 90
[2023-01-20] MEDS ORDERED: LIDOCAINE 5% PATCH TOPICAL SCH (09:00)
== END 2023-01-20 05:28 | disposition home or self-care (01) ==
LOC: EC 01:12 → UNDOADMOB 04:09 → 6NMEDSUR 04:09 → EC 05:28
DX: R07.89 Other chest pain (principal); R00.0 Tachycardia, unspecified; I10 Essential (primary) hypertension; J45.909 Unspecified asthma, uncomplicated; Z79.899 Other long term (current) drug therapy; Z88.0 Allergy status to penicillin
CPT/HCPCS: 36415; 94640; 93005; 80053; 83605; 84132; 85025; 85610; 81003; 81025; 80306; 71046; 99285; 96374; 96375; 96361; J2360; J1885

== ENCOUNTER 2023-04-18 01:22 | Emergency (ER) | payer OTHER ==
[2023-04-18 01:36] VITALS: RESP 18
--- NOTE | 2023-04-18 01:53 | ED ---
Abdominal Pain HPI - General Chief Complaint: Abdominal Pain Stated Complaint: high bp abd pain Time Seen by Provider: 04/18/23 01:53 Source: patient Mode of arrival: ambulatory Limitations: no limitations - History of Present Illness Initial Comments: 28-year-old female who presents to the emergency department reporting pelvic pain. States that she was at home when she had sudden onset of left lower quadrant abdominal pain. She felt as if something popped in her abdomen. She had a sharp searing pain which then settled into a constant lower abdominal cramping. She did have some white vaginal discharge. Denies any vaginal bleeding. She has not had a menstrual cycle in ear. States that it is due to high prolactin levels and she is currently being treated by her MOLECULAR TECHNOLOGIST with a new medication to promote menstrual cycles. She has not had any recent intercourse. Denies concern for sexually transmitted infections. Denies dysuria, hematuria or difficulty voiding. Denies diarrhea, constipation, black or bloody stools. No fevers. No other alleviating, precipitating or modifying factors - Related Data Home Medications Medication Instructions Recorded Confirmed Albuterol Nebulized [Ventolin 2.5 mg INHALATION RT-Q6H PRN 03/10/21 10/26/21 Nebulized] Vit No.180/Iron/Folic 1 tab PO DAILY 03/27/21 10/26/21 [ Plus Vitamin-Mineral] NIFEdipine XL [Procardia XL] 30 mg PO DAILY 09/26/21 10/26/21 methylPREDNISolone Dose Pack See Taper PO DIRECTED 10/26/21 10/26/21 [Medrol Dose Pack] Previous Rx's Medication Instructions Recorded Albuterol Inhaler [Ventolin Hfa 2 puff INHALATION RT-QID PRN #1 12/02/19 Inhaler] inhaler Ferrous Sulfate [Iron (65 MG 325 mg PO BID-W/MEALS #60 tab 10/16/21 Elemental)] Ibuprofen [Motrin] 600 mg PO Q6H PRN #40 tab 10/16/21 Labetalol [Trandate] 100 mg PO BID #60 tab 10/16/21 oxyCODONE HCL [OxyIR] 5 mg PO Q4HR PRN #18 tab 10/16/21 Apixaban [Eliquis] 10 mg PO BID 30 Days #60 tab 10/20/21 Azithromycin [Zithromax Z Pack] 1 tab PO DIRECTED #6 tab 02/18/22 predniSONE 50 mg PO DAILY #5 tab 02/18/22 Albuterol Inhaler [Ventolin Hfa 2 puff INHALATION RT-TID #8 gm 03/01/22 Inhaler] predniSONE [Deltasone] 40 mg PO DAILY 5 Days #10 tab 03/01/22 Allergies Allergy/AdvReac Type Severity Reaction Status Date / Time amoxicillin [Amoxicillin] Allergy Anaphylaxis Verified 04/18/23 01:27 Review of Systems ROS Statement: Those systems with pertinent positive or pertinent negative responses have been documented in the HPI. ROS Other: All systems not noted in ROS Statement are negative. Past Medical History Past Medical History: Asthma, Hypertension, Pulmonary Embolus (PE) Additional Past Medical History / Comment(s): Chronic asthma, lung collapse (April 2019), preclampsia History of Any Multi-Drug Resistant Organisms: None Reported Past Surgical History: Section Additional Past Surgical History / Comment(s): [place] tooth extraction Past Anesthesia/Blood Transfusion Reactions: No Reported Reaction Additional Past Anesthesia/Blood Transfusion Reaction / Comment(s): no anesthesia or blood before Past Psychological History: No Psychological Hx Reported Smoking Status: Never smoker Past Alcohol Use History: None Reported Past Drug Use History: None Reported - Past Family History Father Family Medical History: Asthma Mother Family Medical History: No Reported History General Exam Limitations: no limitations General appearance: alert, in no apparent distress Head exam: Present: atraumatic, normocephalic, normal inspection Eye exam: Present: normal appearance, PERRL, EOMI. Absent: scleral icterus, conjunctival injection, periorbital swelling ENT exam: Present: normal exam, mucous membranes moist Neck exam: Present: normal inspection. Absent: tenderness, meningismus, lymphadenopathy Respiratory exam: Present: normal lung sounds bilaterally. Absent: respiratory distress, wheezes, rales, rhonchi, stridor Cardiovascular Exam: Present: regular rate, normal rhythm, normal heart sounds. Absent: systolic murmur, diastolic murmur, rubs, gallop, clicks GI/Abdominal exam: Present: soft, tenderness (Suprapubic), normal bowel sounds. Absent: distended, guarding, rebound, rigid Extremities exam: Present: normal inspection, full ROM, normal capillary refill. Absent: tenderness, pedal edema, joint swelling, calf tenderness Back exam: Present: normal inspection Neurological exam: Present: alert, oriented X3, CN II-XII intact Psychiatric exam: Present: normal affect, normal mood Skin exam: Present: warm, dry, intact, normal color. Absent: rash Course Vital Signs 04/18/23 04/18/23 04/18/23 01:28 02:30 04:29 Temperature 98.2 F 98.0 F Pulse Rate 122 H 84 88 Respiratory 18 18 18 Rate Blood Pressure 154/101 128/96 121/83 O2 Sat by Pulse 98 97 97 Oximetry Medical Decision Making - Medical Decision Making Was pt. sent in by a medical professional or institution (, PA, FOOD CROPS FARM HAND, urgent care, hospital, or correction...) When possible be specific @ -No Did you speak to anyone other than the patient for history (EMS, parent, family, police, friend...)? What history was obtained from this source @ -No Did you review nursing and triage notes (agree or disagree)? Why? @ -I reviewed and agree with nursing and triage notes Were old charts reviewed (outside hosp., previous admission, EMS record, old EKG, old radiological studies, urgent care reports/EKG's, correction records)? Report findings @ -No old charts were reviewed Differential Diagnosis (chest pain, altered mental status, abdominal pain women, abdominal pain men, vaginal bleeding, weakness, fever, dyspnea, syncope, headache, dizziness, GI bleed, back pain, seizure, CVA, palpatations, mental health, musculoskeletal)? @ -Differential Abdominal Pain Women: Appendicitis, Cholecystitis, diverticulosis, ischemic bowel, pancreatitis, hepatitis, UTI, gastroenteritis, AAA, incarcerated hernia, bowel obstruction, constipation, inflammatory bowel, hepatitis, peptic ulcer disease, splenic infarction, perforated viscus, vulvitis, ovarian torsion, PID, kidney stone, placenta abruption, this is not meant to be an all-inclusive list EKG interpreted by me (3pts min.). @ -Not done X-rays interpreted by me (1pt min.). @ -None done CT interpreted by me (1pt min.). @ -None done U/S interpreted by me (1pt. min.). @ -None done What testing was considered but not performed or refused? (CT, X-rays, U/S, labs)? Why? @ -CT and ultrasound was considered. Patient is refusing CT as she just had one a year ago. Ultrasound is not available until 7 AM the patient is refusing to stay for study What meds were considered but not given or refused? Why? @ -Pain medications were considered however patient refused Did you discuss the management of the patient with other professionals (pr ofessionals i.e. , PA, FOOD CROPS FARM HAND, lab, RT, psych nurse, social problems specialist, piece marker small arms, teacher, public health service officer, housing case manager)? Give summary @ -No Was smoking cessation discussed for >3mins.? @ -No Was critical care preformed (if so, how long)? @ -No Were there social determinants of health that impacted care today? How? (Homelessness, low income, unemployed, alcoholism, drug addiction, transport ation, low edu. Level, literacy, decrease access to med. care, usp, rehab)? @ -No Was there de-escalation of care discussed even if they declined (Discuss DNR or withdrawal of care, Hospice)? DNR status @ -No What co-morbidities impacted this encounter? (DM, HTN, Smoking, COPD, CAD, Cancer, CVA, ARF, Chemo, Hep., AIDS, mental health diagnosis, sleep apnea, morbid obesity)? @ -None Was patient admitted / discharged? Hospital course, mention meds given and route, prescriptions, significant lab abnormalities, going to OR and other pertinent info. @ -Upon arrival patient was placed into room 7. Thorough history and physical exam was performed. Laboratory studies were conducted. I did offer computed tomography scan however patient refused. I did offer awaiting until ultrasound was available however patient was unable to stay. She did agree to a dose of Toradol eventually in her stay. She does have improvement in her pain. Laboratory studies are unremarkable. Discuss results with the patient's. Recommended imaging. Patient would like to go home at this time. Instructed to monitor her symptoms. Take Motrin Tylenol for pain but if her symptoms worsen she needs to return to the emergency department. Patient understood and was agreeable to this. She was discharged in stable condition Undiagnosed new problem with uncertain prognosis? @ -Yes Drug Therapy requiring intensive monitoring for toxicity (Heparin, Nitro, Insulin, Cardizem)? @ -No Were any procedures done? @ -No Diagnosis/symptom? @ -Acute pelvic pain Acute, or Chronic, or Acute on Chronic? @ -Acute Uncomplicated (without systemic symptoms) or Complicated (systemic symptoms)? @ -Complicated Side effects of treatment? @ -No Exacerbation, Progression, or Severe Exacerbation? @ -No Poses a threat to life or bodily function? How? (Chest pain, [place], [place], pneumonia, PE, COPD, DKA, ARF, appy, cholecystitis, CVA, Diverticulitis, Homicidal, Suicidal, threat to staff... and all critical care pts) @ -No - Lab Data Result diagrams: 04/18/23 02:04/18/23 02: Lab Results 04/18/23 04/18/23 04/18/23 Range/Units 02: 02: 02: WBC 8.0 (3.8-10.6) k/uL RBC 4.69 (3.80-5.40) m/uL Hgb 14.5 (11.4-16.0) gm/dL Hct 44.4 (34.0-46.0) % MCV 94.5 (80.0-100.0) fL MCH 30.9 (25.0-35.0) pg MCHC 32.7 (31.0-37.0) g/dL RDW 12.2 (11.5-15.5) % Plt Count 270 (150-450) k/uL MPV 7.0 Neutrophils % 54 % Lymphocytes % 36 % Monocytes % 6 % Eosinophils % 4 % Basophils % 0 % Neutrophils # 4.3 (1.3-7.7) k/uL Lymphocytes # 2.8 (1.0-4.8) k/uL Monocytes # 0.5 (0-1.0) k/uL Eosinophils # 0.3 (0-0.7) k/uL Basophils # 0.0 (0-0.2) k/uL Sodium 139 (137-145) mmol/L Potassium 4.0 (3.5-5.1) mmol/L Chloride 103 (98-107) mmol/L Carbon Dioxide 24 (22-30) mmol/L Anion Gap 12 mmol/L BUN 16 (7-17) mg/dL Creatinine 0.71 (0.52-1.04) mg/dL Est GFR (CKD-EPI)AfAm >90 (>60 ml/min/1.73 sqM) Est GFR (CKD-EPI)NonAf >90 (>60 ml/min/1.73 sqM) Glucose 109 H (74-99) mg/dL Plasma Lactic Acid Ariel 0.9 (0.7-2.0) mmol/L Calcium 10.0 (8.4-10.2) mg/dL Total Bilirubin 0.5 (0.2-1.3) mg/dL AST 20 (14-36) U/L ALT 15 (4-34) U/L Alkaline Phosphatase 89 (38-126) U/L Total Protein 8.4 H (6.3-8.2) g/dL Albumin 4.9 (3.5-5.0) g/dL Lipase 54 (23-300) U/L Urine Color Urine Appearance (Clear) Urine pH (5.0-8.0) Ur Specific [place] (1.001-1.035) Urine Protein (Negative) Urine Glucose (UA) (Negative) Urine Ketones (Negative) Urine Blood (Negative) Urine Nitrite (Negative) Urine Bilirubin (Negative) Urine Urobilinogen (<2.0) mg/dL Ur Leukocyte Esterase (Negative) Urine HCG, Qual (Not Detectd) 04/18/23 04/18/23 Range/Units 02:35 02:35 WBC (3.8-10.6) k/uL RBC (3.80-5.40) m/uL Hgb (11.4-16.0) gm/dL Hct (34.0-46.0) % MCV (80.0-100.0) fL MCH (25.0-35.0) pg MCHC (31.0-37.0) g/dL RDW (11.5-15.5) % Plt Count (150-450) k/uL MPV Neutrophils % % Lymphocytes % % Monocytes % % Eosinophils % % Basophils % % Neutrophils # (1.3-7.7) k/uL Lymphocytes # (1.0-4.8) k/uL Monocytes # (0-1.0) k/uL Eosinophils # (0-0.7) k/uL Basophils # (0-0.2) k/uL Sodium (137-145) mmol/L Potassium (3.5-5.1) mmol/L Chloride (98-107) mmol/L Carbon Dioxide (22-30) mmol/L Anion Gap mmol/L BUN (7-17) mg/dL Creatinine (0.52-1.04) mg/dL Est GFR (CKD-EPI)AfAm (>60 ml/min/1.73 sqM) Est GFR (CKD-EPI)NonAf (>60 ml/min/1.73 sqM) Glucose (74-99) mg/dL Plasma Lactic Acid Ariel (0.7-2.0) mmol/L Calcium (8.4-10.2) mg/dL Total Bilirubin (0.2-1.3) mg/dL AST (14-36) U/L ALT (4-34) U/L Alkaline Phosphatase (38-126) U/L Total Protein (6.3-8.2) g/dL Albumin (3.5-5.0) g/dL Lipase (23-300) U/L Urine Color Colorless Urine Appearance Clear (Clear) Urine pH 7.0 (5.0-8.0) Ur Specific [place] 1.007 (1.001-1.035) Urine Protein Negative (Negative) Urine Glucose (UA) Negative (Negative) Urine Ketones Negative (Negative) Urine Blood Negative (Negative) Urine Nitrite Negative (Negative) Urine Bilirubin Negative (Negative) Urine Urobilinogen <2.0 (<2.0) mg/dL Ur Leukocyte Esterase Negative (Negative) Urine HCG, Qual Not Detected (Not Detectd) Disposition Clinical Impression: Pelvic pain Disposition: HOME SELF-CARE Condition: Stable Instructions (If sedation given, give patient instructions): Pelvic Pain in Women (ED) Additional Instructions: Please follow-up with your primary care doctor in 2-4 days. I recommend an ultrasound of your pelvis. Alternate taking Motrin and Tylenol for pain control. Return for any new or worsening symptoms Is patient prescribed a controlled substance at d/c from ED?: No Referrals: Lou Eastman MD [Primary Care Provider] - 1-2 days Hugo Majano DO [REFERRING] - 1-2 days Time of Disposition: 04:11
[2023-04-18 02:50] LABS: Basophils % (A) 0 %; Eosinophils # (A) 0.3 k/uL (0-0.7); Eosinophils % (A) 4 %; HCT 44.4 % (34.0-46.0); HGB 14.5 gm/dL (11.4-16.0); Lymphocytes # (A) 2.8 k/uL (1.0-4.8); Lymphocytes % (A) 36 %; MCH 30.9 pg (25.0-35.0); MCHC 32.7 g/dL (31.0-37.0); MCV 94.5 fL (80.0-100.0); Monocytes # (A) 0.5 k/uL (0-1.0); Monocytes % (A) 6 %; Neutrophils # (A) 4.3 k/uL (1.3-7.7); Neutrophils % (A) 54 %; Platelet Count 270 k/uL (150-450); RBC 4.69 m/uL (3.80-5.40); RDW 12.2 % (11.5-15.5)
[2023-04-18] MEDS ORDERED: KETOROLAC 15 MG/ML 1 ML VIAL IVP STA (03:37)
[2023-04-18 03:49] LABS: Appearance,Urine Clear (Clear); Bilirubin,Urine Negative (Negative); Blood,Urine Negative (Negative); Color,Urine Colorless; Glucose,Urine (UA) Negative (Negative); Ketones,Urine Negative (Negative); Leukocyte Esterase,Urine Negative (Negative); Nitrite,Urine Negative (Negative); Protein,Urine Negative (Negative); Specific Gravity,Urine 1.007 (1.001-1.035); Urobilinogen,Urine <2.0 mg/dL (<2.0)
[2023-04-18 03:54] LABS: ALT 15 U/L (4-34); AST 20 U/L (14-36); African American GFR (CKD) >90 (>60 ml/min/1.73 sqM); Albumin 4.9 g/dL (3.5-5.0); Alkaline Phosphatase 89 U/L (38-126); Anion Gap 12 mmol/L; Blood Urea Nitrogen 16 mg/dL (7-17); Carbon Dioxide 24 mmol/L (22-30); Chloride 103 mmol/L (98-107); Glucose 109 mg/dL (74-99); Lipase 54 U/L (23-300); Non-African American GFR(CKD) >90 (>60 ml/min/1.73 sqM); Sodium 139 mmol/L (137-145); Total Bilirubin 0.5 mg/dL (0.2-1.3); Total Protein 8.4 g/dL (6.3-8.2)
[2023-04-18 04:46] VITALS: BP 121/83; PULSE 88; TEMP 98
== END 2023-04-18 04:38 | disposition home or self-care (01) ==
LOC: EC 01:22
DX: R10.2 Pelvic and perineal pain (principal); I10 Essential (primary) hypertension; J45.909 Unspecified asthma, uncomplicated; Z79.899 Other long term (current) drug therapy; Z88.0 Allergy status to penicillin
CPT/HCPCS: 36415; 80053; 83605; 83690; 85025; 81003; 81025; 99284; 96374; J1885

== ENCOUNTER 2023-04-30 00:24 | Emergency (ER) | payer OTHER ==
[2023-04-30 00:56] VITALS: RESP 18
[2023-04-30 01:21] LABS: Basophils % (A) 0 %; Eosinophils # (A) 0.3 k/uL (0-0.7); Eosinophils % (A) 5 %; HCT 38.7 % (34.0-46.0); HGB 12.7 gm/dL (11.4-16.0); Lymphocytes # (A) 1.5 k/uL (1.0-4.8); Lymphocytes % (A) 26 %; MCHC 32.8 g/dL (31.0-37.0); MCV 94.6 fL (80.0-100.0); Mean Platelet Volume 7.6; Monocytes # (A) 0.5 k/uL (0-1.0); Monocytes % (A) 9 %; Neutrophils # (A) 3.4 k/uL (1.3-7.7); Neutrophils % (A) 58 %; Platelet Count 218 k/uL (150-450); RBC 4.09 m/uL (3.80-5.40); RDW 12.5 % (11.5-15.5); WBC 5.9 k/uL (3.8-10.6)
[2023-04-30 01:33] LABS: ALT 13 U/L (4-34); AST 18 U/L (14-36); African American GFR (CKD) >90 (>60 ml/min/1.73 sqM); Albumin 4.3 g/dL (3.5-5.0); Alkaline Phosphatase 75 U/L (38-126); Anion Gap 12 mmol/L; Blood Urea Nitrogen 12 mg/dL (7-17); Calcium 9.5 mg/dL (8.4-10.2); Carbon Dioxide 20 mmol/L (22-30); Chloride 106 mmol/L (98-107); Glucose 113 mg/dL (74-99); Non-African American GFR(CKD) >90 (>60 ml/min/1.73 sqM); Potassium 3.8 mmol/L (3.5-5.1); Sodium 138 mmol/L (137-145); Total Bilirubin 0.3 mg/dL (0.2-1.3); Total Protein 7.1 g/dL (6.3-8.2)
--- NOTE | 2023-04-30 02:11 | ED ---
General Adult HPI - General Chief complaint: Chest Pain Stated complaint: Chest Pain, Dizziness Time Seen by Provider: 04/30/23 00:44 Source: patient Mode of arrival: ambulatory Limitations: no limitations - History of Present Illness Initial comments: Dictation was produced using [employer] dictation software. please excuse any grammatical, word or spelling errors. Chief Complaint: 28-year-old female presents with chest pain History of Present Illness: 28-year-old feel presents with sharp left anterior chest pain. Patient is a history of pulmonary embolism that she was told that is from post operation from . Patient also has history of pneumothorax with chest tube thoracostomy several months ago. States that she has sharp chest pain worse when she coughs. Denies any fever or constitutional symptoms. Patient not anticoagulation medications currently. The ROS documented in this emergency department record has been reviewed and confirmed by me. Those systems with pertinent positive or negative responses have been documented in the HPI. All other systems are other negative and/or noncontributory. - Related Data Home Medications Medication Instructions Recorded Confirmed Albuterol Nebulized [Ventolin 2.5 mg INHALATION RT-Q6H PRN 03/10/21 10/26/21 Nebulized] Vit No.180/Iron/Folic 1 tab PO DAILY 03/27/21 10/26/21 [ Plus Vitamin-Mineral] NIFEdipine XL [Procardia XL] 30 mg PO DAILY 09/26/21 10/26/21 methylPREDNISolone Dose Pack See Taper PO DIRECTED 10/26/21 10/26/21 [Medrol Dose Pack] Previous Rx's Medication Instructions Recorded Albuterol Inhaler [Ventolin Hfa 2 puff INHALATION RT-QID PRN #1 12/02/19 Inhaler] inhaler Ferrous Sulfate [Iron (65 MG 325 mg PO BID-W/MEALS #60 tab 10/16/21 Elemental)] Ibuprofen [Motrin] 600 mg PO Q6H PRN #40 tab 10/16/21 Labetalol [Trandate] 100 mg PO BID #60 tab 10/16/21 oxyCODONE HCL [OxyIR] 5 mg PO Q4HR PRN #18 tab 10/16/21 Apixaban [Eliquis] 10 mg PO BID 30 Days #60 tab 10/20/21 Azithromycin [Zithromax Z Pack] 1 tab PO DIRECTED #6 tab 02/18/22 predniSONE 50 mg PO DAILY #5 tab 02/18/22 Albuterol Inhaler [Ventolin Hfa 2 puff INHALATION RT-TID #8 gm 03/01/22 Inhaler] predniSONE [Deltasone] 40 mg PO DAILY 5 Days #10 tab 03/01/22 Allergies Allergy/AdvReac Type Severity Reaction Status Date / Time amoxicillin [Amoxicillin] Allergy Anaphylaxis Verified 04/30/23 00:28 Review of Systems ROS Statement: Those systems with pertinent positive or pertinent negative responses have been documented in the HPI. ROS Other: All systems not noted in ROS Statement are negative. Past Medical History Past Medical History: Asthma, Hypertension, Pulmonary Embolus (PE) Additional Past Medical History / Comment(s): Chronic asthma, lung collapse (Apr), preclampsia History of Any Multi-Drug Resistant Organisms: None Reported Past Surgical History: Section Additional Past Surgical History / Comment(s): [place] tooth extraction Past Anesthesia/Blood Transfusion Reactions: No Reported Reaction Additional Past Anesthesia/Blood Transfusion Reaction / Comment(s): no anesthesia or blood before Past Psychological History: No Psychological Hx Reported Smoking Status: Never smoker Past Alcohol Use History: None Reported Past Drug Use History: None Reported - Past Family History Father Family Medical History: Asthma Mother Family Medical History: No Reported History General Exam - General Exam Comments Initial Comments: PHYSICAL EXAM: General Impression: Alert and oriented x3, not in acute distress HEENT: Normocephalic atraumatic, extra-ocular movements intact, pupils equal and reactive to light bilaterally, mucous membranes moist. Cardiovascular: Heart regular rate and rhythm Chest: Able to complete full sentences, no retractions, no tachypnea Abdomen: abdomen soft, non-tender, non-distended, no organomegaly Musculoskeletal: Pulses present and equal in all extremities, no peripheral edema Motor: no focal deficits noted Neurological: CN II-XII grossly intact, no focal motor or sensory deficits noted Skin: Intact with no visualized rashes Psych: Normal affect and mood Limitations: no limitations Course Vital Signs 04/30/23 00:28 Temperature 99.2 F Pulse Rate 124 H Respiratory 18 Rate Blood Pressure 128/75 O2 Sat by Pulse 98 Oximetry EKG Findings - EKG Comments: EKG Findings:: My EKG interpretation: Ventricular rate 94, sinus rhythm,. Interval 190, QRS 81, QTC 398. No MI prolongation, no QTC prolongation, no ST or T-wave changes noted. . Overall, this EKG is unremarkable Medical Decision Making - Medical Decision Making Was pt. sent in by a medical professional or institution (, PA, RECREATION CLERK, urgent care, hospital, or [facility]cc...) When possible be specific @ -No Did you speak to anyone other than the patient for history (EMS, parent, family, police, friend...)? What history was obtained from this source @ -No Did you review nursing and triage notes (agree or disagree)? Why? @ -I reviewed and agree with nursing and triage notes Were old charts reviewed (outside hosp., previous admission, EMS record, old EKG, old radiological studies, urgent care reports/EKG's, mcc records)? Report findings @ -No old charts were reviewed Differential Diagnosis (chest pain, altered mental status, abdominal pain women, abdominal pain men, vaginal bleeding, musculoskeletal, weakness, fever, dyspnea, syncope, headache, dizziness, GI bleed, back pain, seizure, CVA, palpatations, mental health)? @ -DDifferential Chest Pain: Stable Angina, Unstable Angina, STEMI, NSTEMI Aortic Dissection, Pneumothorax, M usculoskeletal, Esophageal Spasm GERD, Cholecystitis, Pancreatitis, Zoster, this is not meant to be an all-inclusive list. EKG interpreted by me (3pts min.). @ -See above X-rays interpreted by me (1pt min.). @ -Chest x-ray shows no acute abnormality CT interpreted by me (1pt min.). @ -None done U/S interpreted by me (1pt. min.). @ -None done What testing was considered but not performed or refused? (CT, X-rays, U/S, labs)? Why? @ -None What meds were considered but not given or refused? Why? @ -None Did you discuss the management of the patient with other professionals (professionals i.e. , MANJU, RECREATION CLERK, lab, RT, psych nurse, 7th grade social studies teacher, transit survey worker, teacher, school services officer, rn case manager hospice)? Give summary @ -No Was smoking cessation discussed for >3mins.? @ -No Was critical care preformed (if so, how long)? @ -No Were there social determinants of health that impacted care today? How? (Homelessness, low income, unemployed, alcoholism, drug addiction, transportation, low edu. Level, literacy, decrease access to med. care, care home, rehab)? @ -No Was there de-escalation of care discussed even if they declined (Discuss DNR or withdrawal of care, Hospice)? DNR status @ -No What co-morbidities impacted this encounter? (DM, HTN, Smoking, COPD, CAD, Cancer, CVA, ARF, Chemo, Hep., AIDS, mental health diagnosis, sleep apnea, morbid obesity)? @ -None Was patient admitted / discharged? Hospital course, mention meds given and route, prescriptions, significant lab abnormalities, going to OR and other pertinent info. @ -28 Year-old female presents emergency department with atypical chest pain. Vital signs shows tachycardia 124. Rest of vital signs within acceptable limits. Laboratory evaluation obtained. CBC, coag panel metabolic panel is unremarkable. D-dimer is negative. Troponins negative. Patient's clinical presentation consistent with pleurisy. She has no high-risk features. Patient observed in the emergency department for approximately 3 hours and 41 minutes. Reevaluated at bedside at 4:07 AM found to be similar condition. Patient be discharged. Undiagnosed new problem with uncertain prognosis? @ -No Drug Therapy requiring intensive monitoring for toxicity (Heparin, Nitro, Insulin, Cardizem)? @ -No Were any procedures done? @ -No Diagnosis/symptom? Acute, or Chronic, or Acute on Chronic? Uncomplicated (without systemic symptoms) or Complicated (systemic symptoms)? @ -pleurisy Side effects of treatment? @ -No Exacerbation, Progression, or Severe Exacerbation? @ -No Poses a threat to life or bodily function? How? (Chest pain, [place], [place], pneumonia, PE, COPD, DKA, ARF, appy, cholecystitis, CVA, Diverticulitis, Homicidal, Suicidal, threat to staff... and all critical care pts) @ -No - Lab Data Result diagrams: 04/30/23 00:51 04/30/23 00:51 Lab Results 04/30/23 04/30/23 04/30/23 Range/Units 00:51 00:51 00:51 WBC 5.9 (3.8-10.6) k/uL RBC 4.09 (3.80-5.40) m/uL Hgb 12.7 (11.4-16.0) gm/dL Hct 38.7 (34.0-46.0) % MCV 94.6 (80.0-100.0) fL MCH 31.0 (25.0-35.0) pg MCHC 32.8 (31.0-37.0) g/dL RDW 12.5 (11.5-15.5) % Plt Count 218 (150-450) k/uL MPV 7.6 Neutrophils % 58 % Lymphocytes % 26 % Monocytes % 9 % Eosinophils % 5 % Basophils % 0 % Neutrophils # 3.4 (1.3-7.7) k/uL Lymphocytes # 1.5 (1.0-4.8) k/uL Monocytes # 0.5 (0-1.0) k/uL Eosinophils # 0.3 (0-0.7) k/uL Basophils # 0.0 (0-0.2) k/uL PT 10.2 (10.0-12.5) sec INR 0.9 (<1.2) APTT 25.2 (22.0-30.0) sec D-Dimer 0.30 (<0.60) mg/L FEU Sodium 138 (137-145) mmol/L Potassium 3.8 (3.5-5.1) mmol/L Chloride 106 (98-107) mmol/L Carbon Dioxide 20 L (22-30) mmol/L Anion Gap 12 mmol/L BUN 12 (7-17) mg/dL Creatinine 0.62 (0.52-1.04) mg/dL Est GFR (CKD-EPI)AfAm >90 (>60 ml/min/1.73 sqM) Est GFR (CKD-EPI)NonAf >90 (>60 ml/min/1.73 sqM) Glucose 113 H (74-99) mg/dL Calcium 9.5 (8.4-10.2) mg/dL Total Bilirubin 0.3 (0.2-1.3) mg/dL AST 18 (14-36) U/L ALT 13 (4-34) U/L Alkaline Phosphatase 75 (38-126) U/L Troponin I (0.000-0.034) ng/mL Total Protein 7.1 (6.3-8.2) g/dL Albumin 4.3 (3.5-5.0) g/dL 04/30/23 Range/Units 00:51 WBC (3.8-10.6) k/uL RBC (3.80-5.40) m/uL Hgb (11.4-16.0) gm/dL Hct (34.0-46.0) % MCV (80.0-100.0) fL MCH (25.0-35.0) pg MCHC (31.0-37.0) g/dL RDW (11.5-15.5) % Plt Count (150-450) k/uL MPV Neutrophils % % Lymphocytes % % Monocytes % % Eosinophils % % Basophils % % Neutrophils # (1.3-7.7) k/uL Lymphocytes # (1.0-4.8) k/uL Monocytes # (0-1.0) k/uL Eosinophils # (0-0.7) k/uL Basophils # (0-0.2) k/uL PT (10.0-12.5) sec INR (<1.2) APTT (22.0-30.0) sec D-Dimer (<0.60) mg/L FEU Sodium (137-145) mmol/L Potassium (3.5-5.1) mmol/L Chloride (98-107) mmol/L Carbon Dioxide (22-30) mmol/L Anion Gap mmol/L BUN (7-17) mg/dL Creatinine (0.52-1.04) mg/dL Est GFR (CKD-EPI)AfAm (>60 ml/min/1.73 sqM) Est GFR (CKD-EPI)NonAf (>60 ml/min/1.73 sqM) Glucose (74-99) mg/dL Calcium (8.4-10.2) mg/dL Total Bilirubin (0.2-1.3) mg/dL AST (14-36) U/L ALT (4-34) U/L Alkaline Phosphatase (38-126) U/L Troponin I <0.012 (0.000-0.034) ng/mL Total Protein (6.3-8.2) g/dL Albumin (3.5-5.0) g/dL Disposition Clinical Impression: Pleurisy Disposition: HOME SELF-CARE Condition: Fair Instructions (If sedation given, give patient instructions): Pleurisy (ED) Is patient prescribed a controlled substance at d/c from ED?: No Referrals: Lou Eastman MD [Primary Care Provider] - 1-2 days Time of Disposition: 04:08
[2023-04-30 02:50] LABS: INR 0.9 (<1.2); Partial Thromboplastin Time 25.2 sec (22.0-30.0); Prothrombin Time 10.2 sec (10.0-12.5)
--- NOTE | 2023-04-30 03:55 | XR ---
EXAM: XR Chest, 2 Views CLINICAL HISTORY: Chest pain TECHNIQUE: Frontal and lateral views of the chest. COMPARISON: Chest x-ray 01/20/2023. FINDINGS: Lungs: No consolidation. No atelectasis. No CHF. Pleural space: No pleural effusion. No pneumothorax. Heart: No cardiomegaly. Mediastinum: Unremarkable. Bones/joints: Unremarkable. IMPRESSION: No acute abnormality.
[2023-04-30 04:50] VITALS: BP 122/74; PULSE 84; TEMP 98.3
== END 2023-04-30 04:39 | disposition home or self-care (01) ==
LOC: EC 00:24
DX: R09.1 Pleurisy (principal); R00.0 Tachycardia, unspecified; I10 Essential (primary) hypertension; J45.909 Unspecified asthma, uncomplicated; Z79.899 Other long term (current) drug therapy; Z88.0 Allergy status to penicillin
CPT/HCPCS: 36415; 71046; 80053; 84484; 85025; 85379; 85610; 85730; 93005; 99283; 99285

== ENCOUNTER 2023-05-06 10:10 | Emergency (ER) | payer OTHER ==
[2023-05-06 10:51] VITALS: RESP 18
[2023-05-06] MEDS ORDERED: KETOROLAC 15 MG/ML 1 ML VIAL IVP STA (11:01)
[2023-05-06] MEDS ORDERED: SODIUM CHLORIDE 0.9% 1,000 ML IV STA (11:01)
--- NOTE | 2023-05-06 11:14 | ED ---
Chest Pain HPI - General Chief Complaint: Chest Pain Stated Complaint: Chest Pain Time Seen by Provider: 05/06/23 10:38 Source: patient, RN notes reviewed Mode of arrival: ambulatory Limitations: no limitations - History of Present Illness Initial Comments: This is a 28-year-old female who presents to the emergency department for chest pain. States that this is primarily left-sided. She was evaluated here for this 6 days ago, and states that it has just not gotten better. Reports a history of pulmonary embolus and a pneumothorax requiring a chest tube. Given this history, she is concerned about something more serious going on. She was told that this was related to pleurisy and discharged home. She did have nausea yesterday, but had recently been given a prescription for a Z-Marco A and wonders if it may have been related to that. Does not currently feel nauseous. She has shortness of breath related to asthma, but is unsure if it is any worse than normal. MD Complaint: chest pain - Related Data Home Medications Medication Instructions Recorded Confirmed Albuterol Nebulized [Ventolin 2.5 mg INHALATION RT-TID 03/10/21 05/06/23 Nebulized] Cabergoline 0.5 mg PO TH 05/06/23 05/06/23 Ipratropium-Albuterol Nebulize 3 ml INHALATION RT-QID 05/06/23 05/06/23 [Duoneb 0.5 mg-3 mg/3 ml Soln] Montelukast [Singulair] 10 mg PO HS 05/06/23 05/06/23 Omalizumab [Xolair] 150 mg SQ Q28D 05/06/23 05/06/23 amLODIPine [Norvasc] 2.5 mg PO HS 05/06/23 05/06/23 amLODIPine [Norvasc] 5 mg PO DAILY 05/06/23 05/06/23 predniSONE [Deltasone] 20 mg PO BID PRN 05/06/23 05/06/23 Previous Rx's Medication Instructions Recorded Albuterol Inhaler [Ventolin Hfa 2 puff INHALATION RT-QID PRN #1 12/02/19 Inhaler] inhaler Allergies Allergy/AdvReac Type Severity Reaction Status Date / Time amoxicillin [Amoxicillin] Allergy Anaphylaxis Verified 05/06/23 12:17 azithromycin AdvReac Nausea & Verified 05/06/23 12:39 [From Zithromax Z-Marco A] Vomiting Review of Systems ROS Statement: Those systems with pertinent positive or pertinent negative responses have been documented in the HPI. ROS Other: All systems not noted in ROS Statement are negative. Past Medical History Past Medical History: Asthma, Hypertension, Pulmonary Embolus (PE) Additional Past Medical History / Comment(s): Chronic asthma, lung collapse (April 2019), preclampsia History of Any Multi-Drug Resistant Organisms: None Reported Past Surgical History: Section Additional Past Surgical History / Comment(s): [place] tooth extraction Past Anesthesia/Blood Transfusion Reactions: No Reported Reaction Additional Past Anesthesia/Blood Transfusion Reaction / Comment(s): no anesthesia or blood before Past Psychological History: No Psychological Hx Reported Smoking Status: Never smoker Past Alcohol Use History: None Reported Past Drug Use History: None Reported - Past Family History Father Family Medical History: Asthma Mother Family Medical History: No Reported History General Exam Limitations: no limitations General appearance: alert, in no apparent distress Head exam: Present: atraumatic, normocephalic, normal inspection Respiratory exam: Present: normal lung sounds bilaterally. Absent: respiratory distress, wheezes, rales, rhonchi, stridor, chest wall tenderness Cardiovascular Exam: Present: regular rate, normal rhythm, normal heart sounds. Absent: systolic murmur, diastolic murmur, rubs, gallop, clicks Neurological exam: Present: alert, oriented X3, CN II-XII intact Psychiatric exam: Present: normal affect, normal mood Skin exam: Present: warm, dry, intact, normal color. Absent: rash Course Vital Signs 05/06/23 05/06/23 05/06/23 10:28 11:36 11:43 Temperature 98.8 F Pulse Rate 78 71 73 Respiratory 18 18 Rate Blood Pressure 151/101 106/74 O2 Sat by Pulse 99 99 Oximetry 05/06/23 11:51 Temperature Pulse Rate 78 Respiratory Rate Blood Pressure O2 Sat by Pulse Oximetry Chest Pain MDM - MDM This is a 28-year-old female who presents to the emergency department for chest pain. Was pt. sent in by a medical professional or institution? @ -No Did you speak to anyone other than the patient for history? @ -No Did you review nursing and triage notes? @ -Yes, and I agree, it is accurate with regards to the patient's symptoms. Were old charts reviewed? @ -No Differential Diagnosis? @ -Differential Chest Pain: Stable Angina, Unstable Angina, STEMI, NSTEMI Aortic Dissection, Pneumothorax, Musculoskeletal, Esophageal Spasm GERD, Cholecystitis, Pancreatitis, Zoster, this is not meant to be an all-inclusive list. EKG interpreted by me (3pts min.)? @ -EKG interpreted by me demonstrating the following: Sinus rhythm. Ventricular rate 70 bpm, LA interval 162 ms, QRS duration 90 ms, QTC 391 ms. X-rays interpreted by me (1pt min.)? @ -Chest x-ray obtained, my interpretation identifies no localized consolidations or infiltrates. CT interpreted by me (1pt min.)? @ -Not obtained U/S interpreted by me (1pt. min.)? @ -Not obtained What testing was considered but not performed? (CT, X-rays, U/S, labs)? Why? @ -None What meds were considered but not given? Why? @ -None Did you discuss the management of the patient with other professionals? @ -No Did you reconcile home meds? @ -No Was smoking cessation discussed for >3mins.? @ -No Was critical care preformed (if so, how long)? @ -No Were there social determinants of health that impacted care today? How? (Homelessness, low income, unemployed, alcoholism, drug addiction, transportation, low edu. Level, literacy, decrease access to med. care, halfway, rehab)? @ -No Was there de-escalation of care discussed even if they declined? (Discuss DNR or withdrawal of care, Hospice)? @ -No What co-morbidities impacted this encounter? (DM, HTN, Smoking, COPD, CAD, Cancer, CVA, Hep., AIDS, mental health diagnosis, sleep apnea, morbid obesity)? @ -Hx of PE, hx of PTX, asthma Was patient admitted / discharged? @ -Discharged. Lab work obtained and found to be nonactionable, including a negative troponin and negative d-dimer. Chest x-ray reveals no acute process. Advised that the symptoms may be related to pleurisy as previously advised or a musculoskeletal process. Patient is comfortable with discharge home, and states that she wanted to make sure that there was no evidence of a recurrent pulmonary embolus or pneumothorax given her history, and because she has to take care of children at home. Advised ibuprofen and Tylenol as needed for pain relief and follow-up with her primary care provider. Undiagnosed new problem with uncertain prognosis? @ -None Drug Therapy requiring intensive monitoring for toxicity (Heparin, Nitro, I nsulin, Cardizem)? @ -None Were any procedures done? @ -None Diagnosis/symptom? @ -Chest pain, pleurisy Acute, or Chronic, or Acute on Chronic? @ -Acute Uncomplicated (without systemic symptoms) or Complicated (systemic symptoms)? @ -Uncomplicated Side effects of treatment? @ -None Exacerbation, Progression, or Severe Exacerbation] @ -Not applicable Poses a threat to life or bodily function? @ -No Return precautions reviewed in depth, the patient is instructed to return to the emergency department with any new, worsening, or concerning symptoms. Patient verbalized understanding. This case was discussed in detail with the attending ED physician, Dr. Almendarez. Presentation, findings, and treatment plan discussed in detail as well. Disposition Clinical Impression: Chest pain, Pleurisy Disposition: HOME SELF-CARE Instructions (If sedation given, give patient instructions): Chest Pain (ED), Noncardiac Chest Pain (ED) Additional Instructions: Return to the emergency department with any new, worsening, or concerning symptoms. Alternate with ibuprofen and Tylenol as needed for pain relief. Follow up with your primary care provider in 1-2 days. Is patient prescribed a controlled substance at d/c from ED?: No Referrals: Lou Eastman MD [Primary Care Provider] - 1-2 days
[2023-05-06] MEDS ORDERED: IPRATROPIUM-ALBUTEROL 3 ML NEB INHALATION STA (11:23)
[2023-05-06 11:24] LABS: Basophils % (A) 0 %; Eosinophils # (A) 0.2 k/uL (0-0.7); Eosinophils % (A) 2 %; HCT 40.3 % (34.0-46.0); HGB 13.3 gm/dL (11.4-16.0); Lymphocytes # (A) 2.8 k/uL (1.0-4.8); Lymphocytes % (A) 32 %; MCH 31.3 pg (25.0-35.0); MCHC 32.9 g/dL (31.0-37.0); MCV 95.1 fL (80.0-100.0); Mean Platelet Volume 7.8; Monocytes # (A) 0.5 k/uL (0-1.0); Monocytes % (A) 6 %; Neutrophils # (A) 5.1 k/uL (1.3-7.7); Neutrophils % (A) 59 %; Platelet Count 317 k/uL (150-450); RBC 4.24 m/uL (3.80-5.40); RDW 12.5 % (11.5-15.5); WBC 8.7 k/uL (3.8-10.6)
--- NOTE | 2023-05-06 12:26 | XR ---
EXAMINATION TYPE: XR chest 2V DATE OF EXAM: 05/06/2023 12:21 PM COMPARISON: Chest radiographs from 04/30/2023 TECHNIQUE: XR chest 2V Frontal and lateral views of the chest. CLINICAL INDICATION:Female, 28 years old with history of Chest Pain; FINDINGS: Lungs/Pleura: There is no evidence of pleural effusion, focal consolidation, or pneumothorax. Pulmonary vascularity: Unremarkable. Heart/mediastinum: Cardiomediastinal silhouette is unremarkable. Musculoskeletal: No acute osseous pathology. IMPRESSION: No acute cardiopulmonary disease/process.
[2023-05-06 12:38] LABS: Partial Thromboplastin Time 24.6 sec (22.0-30.0); Prothrombin Time 10.7 sec (10.0-12.5)
[2023-05-06 12:56] LABS: ALT 14 U/L (4-34); AST 23 U/L (14-36); African American GFR (CKD) >90 (>60 ml/min/1.73 sqM); Albumin 4.1 g/dL (3.5-5.0); Alkaline Phosphatase 55 U/L (38-126); Anion Gap 9 mmol/L; Blood Urea Nitrogen 11 mg/dL (7-17); Calcium 9.4 mg/dL (8.4-10.2); Carbon Dioxide 24 mmol/L (22-30); Chloride 106 mmol/L (98-107); Glucose 67 mg/dL (74-99); Lipase 75 U/L (23-300); Magnesium 2.3 mg/dL (1.6-2.3); Non-African American GFR(CKD) >90 (>60 ml/min/1.73 sqM); Sodium 139 mmol/L (137-145); Total Bilirubin 0.6 mg/dL (0.2-1.3); Total Protein 7.3 g/dL (6.3-8.2)
[2023-05-06] MEDS ORDERED: ONDANSETRON 4 MG ODT STARTER PACK 2 TAB BTL PO STA (13:17)
[2023-05-06 14:04] VITALS: BP 125/86; PULSE 77; TEMP 98.3
== END 2023-05-06 13:43 | disposition home or self-care (01) ==
LOC: EC 10:10
DX: R09.1 Pleurisy (principal); J45.909 Unspecified asthma, uncomplicated; I10 Essential (primary) hypertension; Z88.0 Allergy status to penicillin; Z88.1 Allergy status to other antibiotic agents; Z79.899 Other long term (current) drug therapy
CPT/HCPCS: 36415; 94640; 93005; 85379; 80053; 83690; 83735; 84484; 85025; 85610; 85730; 71046; 99285; 96374; 96361 ×2; J1885; S0119

== ENCOUNTER 2023-07-27 01:18 | Emergency (ER) | payer OTHER ==
[2023-07-27 01:46] VITALS: TEMP 97.7
--- NOTE | 2023-07-27 03:48 | ED ---
SOB HPI - General Chief Complaint: Shortness of Breath Stated Complaint: SOB chest pain Time Seen by Provider: 07/27/23 03:10 Source: patient Mode of arrival: ambulatory Limitations: no limitations - History of Present Illness Initial Comments: Nicole is a 28-year-old female with history of asthma as well as a history of a provoked pulmonary embolism that occurred after last year. She was on anticoagulation for 6 months she is currently no longer on anticoagulation. 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 She states she has been using her breathing treatments with no improvement. She came to the ER today due to persistent feeling of shortness of breath. Patient denies any chest pain or palpitations. She denies any recent illness. 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 She has not noted any swelling in her legs, she is not on any estrogen or control. She states that she is not and is in fact scheduled for a tubal ligation on August 01. - Related Data Home Medications Medication Instructions Recorded Confirmed Albuterol Nebulized [Ventolin 2.5 mg INHALATION RT-TID 03/10/21 05/06/23 Nebulized] Cabergoline 0.5 mg PO TH 05/06/23 05/06/23 Ipratropium-Albuterol Nebulize 3 ml INHALATION RT-QID 05/06/23 05/06/23 [Duoneb 0.5 mg-3 mg/3 ml Soln] Montelukast [Singulair] 10 mg PO HS 05/06/23 05/06/23 Omalizumab [Xolair] 150 mg SQ Q28D 05/06/23 05/06/23 amLODIPine [Norvasc] 2.5 mg PO HS 05/06/23 05/06/23 amLODIPine [Norvasc] 5 mg PO DAILY 05/06/23 05/06/23 predniSONE [Deltasone] 20 mg PO BID PRN 05/06/23 05/06/23 Previous Rx's Medication Instructions Recorded Albuterol Inhaler [Ventolin Hfa 2 puff INHALATION RT-QID PRN #1 12/02/19 Inhaler] inhaler Allergies Allergy/AdvReac Type Severity Reaction Status Date / Time amoxicillin [Amoxicillin] Allergy Anaphylaxis Verified 07/27/23 01:39 azithromycin AdvReac Nausea & Verified 07/27/23 01:39 [From Zithromax Z-Marco A] Vomiting Review of Systems ROS Statement: Those systems with pertinent positive or pertinent negative responses have been documented in the HPI. ROS Other: All systems not noted in ROS Statement are negative. Past Medical History Past Medical History: Asthma, Hypertension, Pulmonary Embolus (PE) Additional Past Medical History / Comment(s): Chronic asthma, lung collapse (Apr), preclampsia History of Any Multi-Drug Resistant Organisms: None Reported Past Surgical History: Section Additional Past Surgical History / Comment(s): [place] tooth extraction Past Anesthesia/Blood Transfusion Reactions: No Reported Reaction Additional Past Anesthesia/Blood Transfusion Reaction / Comment(s): no anesthesia or blood before Past Psychological History: No Psychological Hx Reported Smoking Status: Never smoker Past Alcohol Use History: None Reported Past Drug Use History: None Reported - Past Family History Father Family Medical History: Asthma Mother Family Medical History: No Reported History General Exam Limitations: no limitations General appearance: alert, in no apparent distress Head exam: Present: atraumatic, normocephalic Eye exam: Present: PERRL ENT exam: Present: normal exam Respiratory exam: Present: normal lung sounds bilaterally. Absent: respiratory distress, wheezes, rales, rhonchi, stridor, accessory muscle use, decreased breath sounds, prolonged expiratory Cardiovascular Exam: Present: regular rate, normal rhythm, normal heart sounds. Absent: systolic murmur, diastolic murmur GI/Abdominal exam: Present: soft. Absent: distended Rectal exam: Present: deferred Neurological exam: Present: alert, oriented X3 Psychiatric exam: Present: normal affect, normal mood Skin exam: Present: warm, dry, intact Course Vital Signs 07/27/23 07/27/23 07/27/23 01:40 03:48 04:09 Temperature 97.7 F Pulse Rate 73 70 Respiratory 16 18 18 Rate Blood Pressure 159/97 142/88 O2 Sat by Pulse 100 100 Oximetry 07/27/23 05:21 Temperature Pulse Rate 76 Respiratory 18 Rate Blood Pressure 126/80 O2 Sat by Pulse 100 Oximetry Medical Decision Making - Medical Decision Making Was pt. sent in by a medical professional or institution (, PA, NURSE COORDINATOR, urgent care, hospital, or snf...) When possible be specific @ -No Did you speak to anyone other than the patient for history (EMS, parent, family, police, friend...)? What history was obtained from this source @ -No Did you review nursing and triage notes (agree or disagree)? Why? @ -I reviewed and agree with nursing and triage notes Were old charts reviewed (outside hosp., previous admission, EMS record, old EKG, old radiological studies, urgent care reports/EKG's, snf records)? Report findings @ -Previous ER visits were reviewed Differential Diagnosis (chest pain, altered mental status, abdominal pain women, abdominal pain men, vaginal bleeding, weakness, fever, dyspnea, syncope, headache, dizziness, GI bleed, back pain, seizure, CVA, palpatations, mental health)? @ -Differential Dyspnea: Coronary syndrome, arrhythmia, tamponade, asthma, COPD, pulmonary embolism, pneumonia, pneumothorax, pulmonary effusion, anaphylaxis, diabetic ketoacidosis, flailed chest, pulmonary contusion, diaphragmatic rupture, anemia, neuromuscular, this is not meant to be an all-inclusive list. EKG interpreted by me (3pts min.). @ -As above X-rays interpreted by me (1pt min.). @ -None done CT interpreted by me (1pt min.). @ -None done U/S interpreted by me (1pt. min.). @ -None done What testing was considered but not performed or refused? (CT, X-rays, U/S, labs)? Why? @ -CT scan to rule out pulmonary embolism What meds were considered but not given or refused? Why? @ -None Did you discuss the management of the patient with other professionals (professionals i.e. , MANJU, NURSE COORDINATOR, lab, RT, psych nurse, social professionals, regional education coordinator, teacher, audit officer, case management manager)? Give summary @ -No Was smoking cessation discussed for >3mins.? @ -No Was critical care preformed (if so, how long)? @ -No Were there social determinants of health that impacted care today? How? (Homelessness, low income, unemployed, alcoholism, drug addiction, transportation, low edu. Level, literacy, decrease access to med. care, long-term, rehab)? @ -No Was there de-escalation of care discussed even if they declined (Discuss DNR or withdrawal of care, Hospice)? DNR status @ -No What co-morbidities impacted this encounter? (DM, HTN, Smoking, COPD, CAD, Cancer, CVA, ARF, Chemo, Hep., AIDS, mental health diagnosis, sleep apnea, morbid obesity)? @ -Asthma Was patient admitted / discharged? Hospital course, mention meds given and route, prescriptions, significant lab abnormalities, going to OR and other pertinent info. @ -Left AGAINST MEDICAL ADVICE The patient was seen and evaluated. Patient is in no acute distress she is not wheezing she is not tachypneic her lung sounds are clear. Patient has seen her theatrical agent and her primary care she has tested negative for influenza and COVID this week. Given the patient's persistent dyspnea and history of pulmonary emboli I advised the patient we should move forward with imaging to rule out pulmonary emboli. Patient was agreeable to this plan however when the cardiac technologist entered the room for the study the patient did not have an IV. Patient became agitated stating the the staff was not organized and did not know what they were doing. When the nurse entered the room to start an IV patient declined the IV. I returned to the room to discuss with the patient the need for an IV to perform her study. Patient stated that in the past she has had a D-dimer and got to go home. In my opinion because the patient has a history of PE she has by definition not low risk and therefore D-dimer is not adequate. I discussed this with the patient and she stated she understood and though she respect that decision she no longer has time to stay for a CT scan because she has to take her children to school at this time. Due to time constraints and the need to care for her children patient chose to leave AGAINST MEDICAL ADVICE. Patient was advised that she can return at any time for reevaluation. She should follow-up with her theatrical agent for any persistent shortness of breath. Undiagnosed new problem with uncertain prognosis? @ -No Drug Therapy requiring intensive monitoring for toxicity (Heparin, Nitro, Insulin, Cardizem)? @ -No Were any procedures done? @ -No Diagnosis/symptom? @ -Shortness of breath Acute, or Chronic, or Acute on Chronic? @ -Acute on chronic Uncomplicated (without systemic symptoms) or Complicated (systemic symptoms)? @ -Uncomplicated Side effects of treatment? @ -No Exacerbation, Progression, or Severe Exacerbation? @ -Exacerbation Poses a threat to life or bodily function? How? (Chest pain, [place], [place], pneumonia, PE, COPD, DKA, ARF, appy, cholecystitis, CVA, Diverticulitis, Homicidal, Suicidal, threat to staff... and all critical care pts) @ -Unlikely - EKG Data -: EKG Interpreted by Me EKG Comments: EKG interpreted by me, EKG obtained due to complaint of shortness of breath, EKG obtained at 2:13 AM, rate is 72 rhythm is sinus normal axis, normal intervals, IL 187, QRS 86, QTC [address] elevations or depressions there is no evidence of acute ischemia or infarction. Disposition Clinical Impression: Dyspnea Disposition: LEFT AGAINST MEDICAL ADVICE Condition: Stable Instructions (If sedation given, give patient instructions): Asthma (ED) Is patient prescribed a controlled substance at d/c from ED?: No Referrals: Lou Eastman MD [Primary Care Provider] - 1-2 days
[2023-07-27 03:53] VITALS: RESP 18
[2023-07-27 05:42] VITALS: BP 126/80; PULSE 76
== END 2023-07-27 07:08 | disposition left against medical advice (07) ==
LOC: EC 01:18
DX: R06.00 Dyspnea, unspecified (principal); I10 Essential (primary) hypertension; J45.909 Unspecified asthma, uncomplicated; Z79.01 Long term (current) use of anticoagulants; Z79.899 Other long term (current) drug therapy; Z88.0 Allergy status to penicillin; Z88.1 Allergy status to other antibiotic agents; Z53.29 Procedure and treatment not carried out because of patient's decision for other reasons
CPT/HCPCS: 99285

== ENCOUNTER 2023-08-23 00:13 | Emergency (ER) | payer OTHER ==
--- NOTE | 2023-08-23 00:55 | ED ---
General Adult HPI - General Chief complaint: Headache Stated complaint: High Blood Pressure, Dizziness Time Seen by Provider: 08/23/23 00:33 Source: patient, RN notes reviewed, old records reviewed Mode of arrival: ambulatory Limitations: no limitations - History of Present Illness Initial comments: 28-year-old female history of hypertension currently on Norvasc presenting for evaluation of elevated blood pressure. Patient took her medication prior to arrival. She states she has felt somewhat lightheaded over the past 2 days. No fever. No cough. No dyspnea. Denies abdominal pain. Denies current . Denies dysuria. - Related Data Home Medications Medication Instructions Recorded Confirmed Albuterol Nebulized [Ventolin 2.5 mg INHALATION RT-TID 03/10/21 05/06/23 Nebulized] Cabergoline 0.5 mg PO TH 05/06/23 05/06/23 Ipratropium-Albuterol Nebulize 3 ml INHALATION RT-QID 05/06/23 05/06/23 [Duoneb 0.5 mg-3 mg/3 ml Soln] Montelukast [Singulair] 10 mg PO HS 05/06/23 05/06/23 Omalizumab [Xolair] 150 mg SQ Q28D 05/06/23 05/06/23 amLODIPine [Norvasc] 2.5 mg PO HS 05/06/23 05/06/23 amLODIPine [Norvasc] 5 mg PO DAILY 05/06/23 05/06/23 predniSONE [Deltasone] 20 mg PO BID PRN 05/06/23 05/06/23 Previous Rx's Medication Instructions Recorded Albuterol Inhaler [Ventolin Hfa 2 puff INHALATION RT-QID PRN #1 12/02/19 Inhaler] inhaler Allergies Allergy/AdvReac Type Severity Reaction Status Date / Time amoxicillin [Amoxicillin] Allergy Anaphylaxis Verified 08/23/23 00:27 Review of Systems ROS Statement: Those systems with pertinent positive or pertinent negative responses have been documented in the HPI. ROS Other: All systems not noted in ROS Statement are negative. Past Medical History Past Medical History: Asthma, Hypertension, Pulmonary Embolus (PE) Additional Past Medical History / Comment(s): Chronic asthma, lung collapse (April 2019), preclampsia History of Any Multi-Drug Resistant Organisms: None Reported Past Surgical History: Section Additional Past Surgical History / Comment(s): [place] tooth extraction Past Anesthesia/Blood Transfusion Reactions: No Reported Reaction Additional Past Anesthesia/Blood Transfusion Reaction / Comment(s): no anesthesia or blood before Past Psychological History: No Psychological Hx Reported Smoking Status: Never smoker Past Alcohol Use History: None Reported Past Drug Use History: None Reported - Past Family History Father Family Medical History: Asthma Mother Family Medical History: No Reported History General Exam Limitations: no limitations General appearance: alert, in no apparent distress Head exam: Present: atraumatic, normocephalic Eye exam: Present: normal appearance, PERRL ENT exam: Present: normal exam Neck exam: Present: normal inspection. Absent: tenderness, meningismus Respiratory exam: Present: normal lung sounds bilaterally. Absent: respiratory distress, wheezes Cardiovascular Exam: Present: regular rate, normal rhythm GI/Abdominal exam: Present: soft. Absent: distended, tenderness, guarding Extremities exam: Present: normal inspection, normal capillary refill Neurological exam: Present: alert, oriented X3, CN II-XII intact. Absent: motor sensory deficit Psychiatric exam: Present: normal affect, normal mood Skin exam: Present: warm, dry, intact Course Vital Signs 08/23/23 08/23/23 00:17 00:46 Temperature 98.7 F Pulse Rate 100 95 Respiratory 22 16 Rate Blood Pressure 144/81 133/85 O2 Sat by Pulse 100 99 Oximetry Medical Decision Making - Medical Decision Making Was pt. sent in by a medical professional or institution (, PA, EDGE WORKER, urgent care, hospital, or [place] [facility]...) When possible be specific @ -No Did you speak to anyone other than the patient for history (EMS, parent, family, police, friend...)? What history was obtained from this source @ -No Did you review nursing and triage notes (agree or disagree)? Why? @ -I reviewed and agree with nursing and triage notes Were old charts reviewed (outside hosp., previous admission, EMS record, old EKG, old radiological studies, urgent care reports/EKG's, [place] [facility] records)? Report findings @ -No old charts were reviewed Differential Diagnosis (chest pain, altered mental status, abdominal pain women, abdominal pain men, vaginal bleeding, weakness, fever, dyspnea, syncope, headache, dizziness, GI bleed, back pain, seizure, CVA, palpatations, mental health, musculoskeletal)? @ -[Differential Dizziness: Benign paroxysmal positional Vertigo, Menieres disease, otitis media, acoustic neuroma, vertebrobasilar insufficiency, cerebellar stroke, encephalitis, hypovolemic, arrhythmia, coronary artery syndrome, anemia, this is not meant to be an all-inclusive list EKG interpreted by me (3pts min.). @ -Sinus rhythm rate of 85, MI interval 205, QRS duration 87, QTc 409 X-rays interpreted by me (1pt min.). @ -Chest x-ray clear, no focal pneumonia, no pneumothorax CT interpreted by me (1pt min.). @ -[None done U/S interpreted by me (1pt. min.). @ -None done What testing was considered but not performed or refused? (CT, X-rays, U/S, labs)? Why? @ -None What meds were considered but not given or refused? Why? @ -None Did you discuss the management of the patient with other professionals (professionals i.e. , PA, EDGE WORKER, lab, RT, psych nurse, social service agency director, sandwich artist, teacher, business banking officer, casey saw operator)? Give summary @ -No Was smoking cessation discussed for >3mins.? @ -No Was critical care preformed (if so, how long)? @ -No Were there social determinants of health that impacted care today? How? (Home lessness, low income, unemployed, alcoholism, drug addiction, transportation, low edu. Level, literacy, decrease access to med. care, senior care, rehab)? @ -No Was there de-escalation of care discussed even if they declined (Discuss DNR or withdrawal of care, Hospice)? DNR status @ -No What co-morbidities impacted this encounter? (DM, HTN, Smoking, COPD, CAD, Cancer, CVA, ARF, Chemo, Hep., AIDS, mental health diagnosis, sleep apnea, morbid obesity)? @ -[Hypertension Was patient admitted / discharged? Hospital course, mention meds given and route, prescriptions, significant lab abnormalities, going to OR and other pertinent info. @Patient with elevated blood pressure, dizziness. Patient's blood pressure is improved compared to what she reports at home. She did take her Norvasc. She is well-appearing. She is in sinus rhythm. Her chest x-ray is clear. Urinalysis is negative no signs of infection or dehydration. Urine test is negative. She is well-appearing and stable for discharge at this time with return parameters. Undiagnosed new problem with uncertain prognosis? @ -No Drug Therapy requiring intensive monitoring for toxicity (Heparin, Nitro, Insulin, Cardizem)? @ -No Were any procedures done? @ -No Diagnosis/symptom? @Hypertension, dizziness Acute, or Chronic, or Acute on Chronic? @ -Acute Uncomplicated (without systemic symptoms) or Complicated (systemic symptoms)? @ -Default Side effects of treatment? @ -No Exacerbation, Progression, or Severe Exacerbation? @ -No Poses a threat to life or bodily function? How? (Chest pain, [place], [place], pneumonia, PE, COPD, DKA, ARF, appy, cholecystitis, CVA, Diverticulitis, Homicidal, Suicidal, threat to staff... and all critical care pts) @ -No - Lab Data Lab Results 08/23/23 08/23/23 Range/Units 00:53 00:53 Urine Color Colorless Urine Appearance Clear (Clear) Urine pH 6.0 (5.0-8.0) Ur Specific Hibbs 1.005 (1.001-1.035) Urine Protein Negative (Negative) Urine Glucose (UA) Negative (Negative) Urine Ketones Negative (Negative) Urine Blood Negative (Negative) Urine Nitrite Negative (Negative) Urine Bilirubin Negative (Negative) Urine Urobilinogen <2.0 (<2.0) mg/dL Ur Leukocyte Esterase Negative (Negative) Urine HCG, Qual Not Detected (Not Detectd) Disposition Clinical Impression: Hypertension Disposition: HOME SELF-CARE Condition: Fair Instructions (If sedation given, give patient instructions): Hypertension (ED) Is patient prescribed a controlled substance at d/c from ED?: No Referrals: Lou Eastman MD [Primary Care Provider] - 1-2 days Time of Disposition: 01:17
[2023-08-23 00:58] VITALS: RESP 16; TEMP 98.7
--- NOTE | 2023-08-23 01:06 | XR ---
EXAMINATION TYPE: XR chest 2V DATE OF EXAM: 08/23/2023 COMPARISON: Prior chest x-ray May 06, 2023 HISTORY: Shortness of breath TECHNIQUE: Frontal and lateral views of the chest are obtained. FINDINGS: There is no suspicious focal air space opacity, pleural effusion, or pneumothorax seen. T he cardiac silhouette size is stable and within normal limits. The osseous structures are intact. IMPRESSION: No acute process. No significant change from prior.
[2023-08-23 01:11] LABS: Appearance,Urine Clear (Clear); Bilirubin,Urine Negative (Negative); Blood,Urine Negative (Negative); Color,Urine Colorless; Glucose,Urine (UA) Negative (Negative); Ketones,Urine Negative (Negative); Leukocyte Esterase,Urine Negative (Negative); Nitrite,Urine Negative (Negative); Protein,Urine Negative (Negative); Specific Gravity,Urine 1.005 (1.001-1.035); Urobilinogen,Urine <2.0 mg/dL (<2.0)
[2023-08-23 01:35] VITALS: BP 118/73; PULSE 65
== END 2023-08-23 01:30 | disposition home or self-care (01) ==
LOC: EC 00:13
DX: I10 Essential (primary) hypertension (principal); J45.909 Unspecified asthma, uncomplicated; Z88.0 Allergy status to penicillin; Z79.899 Other long term (current) drug therapy
CPT/HCPCS: 71046; 81003; 81025; 93005; 99284

== ENCOUNTER → 2023-08-26 | Outpatient (CLI) | payer OTHER ==
--- NOTE | 2023-08-27 01:05 | MR ---
EXAMINATION TYPE: MR brain wo/w con DATE OF EXAM: 08/26/2023 10:30 PM CLINICAL INDICATION:Female, 28 years old with history of R42 Dizziness; PHH, Dizziness COMPARISON: 05/02/2020 TECHNIQUE: Multi planar, multi sequence imaging was performed through the brain including: T1, T2, In version recovery, susceptibility weighted imaging and gradient echo imaging and Diffusion weighted im aging. The patient was then given intravenous contrast and multi planar, T1 fat-saturation images wer e obtained. IV Contrast: 5.5 cc Gadavist FINDINGS: Minimal cerebellar tonsillar ectopia measuring up to 3 mm below the foramen magnum. The matthews-white ju nctions, ventricular system, basal cisterns appear unremarkable. Diffusion-weighted imaging shows no evidence of restricted diffusion to suggest acute/subacute infarct. Intracranial arterial flow voids are maintained. Midline structures show no abnormality. The susceptibility weighted images do not re veal any evidence for micro-hemorrhage. After administration of gadolinium, no abnormal enhancement i s seen. The bone marrow signal is within normal limits. Paranasal sinuses and mastoid air cells: Mild scattered paranasal sinus disease. Visualized orbits: Orbital contents are intact. IMPRESSION: 1. No evidence of intracranial mass, acute/subacute infarct, or abnormal enhancement. 2. Mild cerebellar tonsillar ectopia.
== END | disposition home or self-care (01) ==
LOC: RADMRIMAIN 21:40
PROVIDERS: ATTEND Internal Medicine
DX: Q04.8 Other specified congenital malformations of brain (principal); R42 Dizziness and giddiness
CPT/HCPCS: 70553; A9585

== ENCOUNTER 2023-11-01 23:47 | Emergency (ER) | payer OTHER ==
[2023-11-02] MEDS: IPRATROPIUM-ALBUTEROL 3 ML NEB INHALATION STA (00:19)
[2023-11-02] MEDS: dexAMETHasone 2 MG TAB PO STA (00:31)
--- NOTE | 2023-11-02 00:34 | ED ---
SOB HPI - General Chief Complaint: Shortness of Breath Stated Complaint: Chuck chest pain Time Seen by Provider: 11/02/23 00:14 Source: patient, RN notes reviewed, old records reviewed Mode of arrival: ambulatory Limitations: no limitations - History of Present Illness Initial Comments: This is a 28-year-old female who is presenting to us today for evaluation regards to severe asthma exacerbation with history of asthma. Known to our emergency department for recurrent evaluation from asthma and today symptoms are worse than normal. Patient states she has had persisting cough and shortness of breath despite at home treatments, no fevers no chest pain MD Complaint: shortness of breath, cough, "asthma attack" -: days(s) Severity: moderate Severity scale (1-10): 7 Quality: dull, aching Consistency: constant Improves With: nothing Worsens With: exertion Known History Of: COPD, asthma Context: recent URI, anxiety, recent illness Associated Symptoms: cough, sputum production Treatments Prior to Arrival: none - Related Data Home Medications Medication Instructions Recorded Confirmed Albuterol Nebulized [Ventolin 2.5 mg INHALATION RT-TID 03/10/21 05/06/23 Nebulized] Cabergoline 0.5 mg PO TH 05/06/23 05/06/23 Ipratropium-Albuterol Nebulize 3 ml INHALATION RT-QID 05/06/23 05/06/23 [Duoneb 0.5 mg-3 mg/3 ml Soln] Montelukast [Singulair] 10 mg PO HS 05/06/23 05/06/23 Omalizumab [Xolair] 150 mg SQ Q28D 05/06/23 05/06/23 amLODIPine [Norvasc] 2.5 mg PO HS 05/06/23 05/06/23 amLODIPine [Norvasc] 5 mg PO DAILY 05/06/23 05/06/23 predniSONE [Deltasone] 20 mg PO BID PRN 05/06/23 05/06/23 Previous Rx's Medication Instructions Recorded Albuterol Inhaler [Ventolin Hfa 2 puff INHALATION RT-QID PRN #1 12/02/19 Inhaler] inhaler Allergies Allergy/AdvReac Type Severity Reaction Status Date / Time amoxicillin [Amoxicillin] Allergy Anaphylaxis Verified 11/02/23 00:07 Review of Systems ROS Statement: Those systems with pertinent positive or pertinent negative responses have been documented in the HPI. ROS Other: All systems not noted in ROS Statement are negative. Past Medical History Past Medical History: Asthma, Hypertension, Pulmonary Embolus (PE) Additional Past Medical History / Comment(s): Chronic asthma, lung collapse (April 2019), preclampsia History of Any Multi-Drug Resistant Organisms: None Reported Past Surgical History: Section Additional Past Surgical History / Comment(s): [place] tooth extraction Past Anesthesia/Blood Transfusion Reactions: No Reported Reaction Additional Past Anesthesia/Blood Transfusion Reaction / Comment(s): no anesthesia or blood before Past Psychological History: No Psychological Hx Reported Smoking Status: Never smoker Past Alcohol Use History: None Reported Past Drug Use History: None Reported - Past Family History Father Family Medical History: Asthma Mother Family Medical History: No Reported History General Exam Limitations: no limitations General appearance: alert, in no apparent distress, anxious Head exam: Present: atraumatic, normocephalic, normal inspection Eye exam: Present: normal appearance, PERRL, EOMI. Absent: scleral icterus, conjunctival injection, periorbital swelling ENT exam: Present: normal exam, mucous membranes moist Neck exam: Present: normal inspection. Absent: tenderness, meningismus, lymphadenopathy Respiratory exam: Present: respiratory distress, wheezes, accessory muscle use, decreased breath sounds, prolonged expiratory. Absent: rales, rhonchi, stridor Cardiovascular Exam: Present: normal rhythm, tachycardia, normal heart sounds. Absent: systolic murmur, diastolic murmur, rubs, gallop, clicks GI/Abdominal exam: Present: soft, normal bowel sounds. Absent: distended, tenderness, guarding, rebound, rigid Extremities exam: Present: normal inspection, full ROM, normal capillary refill. Absent: tenderness, pedal edema, joint swelling, calf tenderness Back exam: Present: normal inspection Neurological exam: Present: alert, oriented X3, CN II-XII intact Psychiatric exam: Present: normal affect, normal mood Skin exam: Present: warm, dry, intact, normal color. Absent: rash Course Vital Signs 11/02/23 11/02/23 11/02/23 00:05 00:20 00:30 Temperature 98.5 F Pulse Rate 115 H 108 H 100 Respiratory 20 Rate Blood Pressure 159/96 O2 Sat by Pulse 100 Oximetry 11/02/23 11/02/23 11/02/23 00:31 00:47 01:49 Temperature Pulse Rate 100 100 102 H Respiratory 18 Rate Blood Pressure 129/82 O2 Sat by Pulse 100 Oximetry - Reevaluation(s) Reevaluation #1: Medical records reviewed Reevaluation #2: Patient symptoms improved Reevaluation #3: Patient informed of results questions answered Reevaluation #4: Was pt. sent in by a medical professional or institution (, MANJU, MANAGEMENT PLANNER, urgent care, hospital, or longterm...) When possible be specific @ -no Did you speak to anyone other than the patient for history (EMS, parent, family, police, friend...)? What history was obtained from this source @ -no Did you review nursing and triage notes (agree or disagree)? Why? @ -agree Are old charts reviewed (outside hosp., previous admission, EMS record, old EKG, old radiological studies, urgent care reports/EKG's, longterm records)? Report findings @ -yes Differential Diagnosis (chest pain, altered mental status, abdominal pain women, abdominal pain men, vaginal bleeding, weakness, fever, dyspnea, syncope, headache, dizziness, GI bleed, back pain, seizure, CVA, palpatations, mental health, musculoskeletal)? @ -prior EKG interpreted by me (3pts min.). @ -yes X-rays interpreted by me (1pt min.). @ -yes negative for acute disease CT interpreted by me (1pt min.). @ -no U/S interpreted by me (1pt. min.). @ -no What testing was considered but not performed or refused? (CT, X-rays, U/S, labs)? Why? @ -none What meds were considered but not given or refused? Why? @ -none Did you discuss the management of the patient with other professionals (professionals i.e. , MANJU, MANAGEMENT PLANNER, lab, RT, psych nurse, social work specialist, state assessed properties director, teacher, transportation security officer, rehabilitation caseworker)? Give summary @ -no Was smoking cessation discussed for >3mins.? @ -no Was critical care preformed (if so, how long)? @ -no Were there social determinants of health that impacted care today? How? (Homelessness, low income, unemployed, alcoholism, drug addiction, transportation, low edu. Level, literacy, decrease access to med. care, [place] [facility], rehab)? @ -none Was there de-escalation of care discussed even if they declined (Discuss DNR or withdrawal of care, Hospice)? DNR status @ -no What co-morbidities impacted this encounter? (DM, HTN, Smoking, COPD, CAD, Cancer, CVA, ARF, Chemo, Hep., AIDS, mental health diagnosis, sleep apnea, morbid obesity)? @ -none Was patient admitted / discharged? Hospital course, mention meds given and route, prescriptions, significant lab abnormalities, going to OR and other pertinent info. @ -28 female to ER for evaluation of right current asthma exacerbation although symptoms are dramatically improved here in the ER, patient is able to have normal ambulatory pulse ox and can be discharged home Discharge Undiagnosed new problem with uncertain prognosis? @ -no Drug Therapy requiring intensive monitoring for toxicity (Heparin, Nitro, Insulin, Cardizem)? @ -no Were any procedures done? @ -no Diagnosis/symptom? @ -Asthma exacerbation Acute, or Chronic, or Acute on Chronic? @ -Acute Uncomplicated (without systemic symptoms) or Complicated (systemic symptoms)? @ -Complicated Side effects of treatment? @ -no Exacerbation, Progression, or Severe Exacerbation? @ -exacerbation Poses a threat to life or bodily function? How? (Chest pain, [place], [place], pneumonia, PE, COPD, DKA, ARF, appy, cholecystitis, CVA, Diverticulitis, Homicidal, Suicidal, threat to staff... and all critical care pts) @ -yes with significant respiratory distress Reevaluation #5: Differential Dyspnea: Coronary syndrome, arrhythmia, tamponade, asthma, COPD, pulmonary embolism, pneumonia, pneumothorax, pulmonary effusion, anaphylaxis, diabetic ketoacidosis, flailed chest, pulmonary contusion, diaphragmatic rupture, anemia, neuromuscular, this is not meant to be an all-inclusive list. Medical Decision Making - Medical Decision Making 28 female to ER for evaluation of right current asthma exacerbation although symptoms are dramatically improved here in the ER, patient is able to have normal ambulatory pulse ox and can be discharged home - EKG Data -: EKG Interpreted by Me (EKG is sinus 96 AK 160 QRS 90 QTc 407) - Radiology Data Radiology results: report reviewed (Chest x-ray is negative for acute disease), image reviewed Disposition Clinical Impression: Dyspnea, Tachycardia, Palpitations Disposition: ADMITTED IP TO THIS HOSP Condition: Fair Instructions (If sedation given, give patient instructions): Heart Palpitations (ED) Is patient prescribed a controlled substance at d/c from ED?: No Referrals: Lou Eastman MD [Primary Care Provider] - 1-2 days Time of Disposition: 01:45
[2023-11-02 00:59] VITALS: TEMP 98.5
--- NOTE | 2023-11-02 01:09 | XR ---
EXAM: XR Chest, 1 View CLINICAL HISTORY: ITS.REASON XR Reason: sob TECHNIQUE: Frontal view of the chest. COMPARISON: CXR August 23, 2023. FINDINGS: Lungs: Unremarkable. No consolidation. Pleural space: Unremarkable. No pneumothorax. Heart: Unremarkable. No cardiomegaly. Mediastinum: Unremarkable. Normal mediastinal contour. Bones/joints: Unremarkable. No acute fracture. IMPRESSION: No consolidation.
[2023-11-02 02:31] VITALS: BP 129/82; PULSE 102; RESP 18
== END 2023-11-02 01:53 | disposition other institution (70) ==
LOC: EC 23:47
DX: J45.901 Unspecified asthma with (acute) exacerbation (principal); R00.1 Bradycardia, unspecified; R00.2 Palpitations; Z88.0 Allergy status to penicillin
CPT/HCPCS: 94640 ×2; 71045; 99285; J8540

== ENCOUNTER 2023-12-05 18:37 | Emergency (ER) | payer OTHER ==
[2023-12-05] MEDS: SODIUM CHLORIDE 0.9% 1,000 ML BAG IV STA (20:10)
[2023-12-05] MEDS: ACETAMINOPHEN TAB 500 MG TAB PO STA (20:11)
[2023-12-05] MEDS: KETOROLAC 15 MG/ML 1 ML VIAL IVP STA (20:11)
--- NOTE | 2023-12-05 20:21 | ED ---
Fever HPI - General Chief Complaint: Fever Stated Complaint: Fever Time Seen by Provider: 12/05/23 19:23 Source: patient Mode of arrival: ambulatory Limitations: no limitations - History of Present Illness Initial Comments: 28-year-old female presenting to the ED with complaints of fever. Patient reports over the past 2 days has had intermittent fever. Also notes of sore throat with this. No difficulty swallowing or difficulty breathing. Denies abdominal pain. Denies chest pain or shortness of breath. Denies changes in bowel or bladder habits. Denies chance of . No other complaints at this time. - Related Data Home Medications Medication Instructions Recorded Confirmed Albuterol Nebulized [Ventolin 2.5 mg INHALATION RT-TID 03/10/21 05/06/23 Nebulized] Cabergoline 0.5 mg PO TH 05/06/23 05/06/23 Ipratropium-Albuterol Nebulize 3 ml INHALATION RT-QID 05/06/23 05/06/23 [Duoneb 0.5 mg-3 mg/3 ml Soln] Montelukast [Singulair] 10 mg PO HS 05/06/23 05/06/23 Omalizumab [Xolair] 150 mg SQ Q28D 05/06/23 05/06/23 amLODIPine [Norvasc] 2.5 mg PO HS 05/06/23 05/06/23 amLODIPine [Norvasc] 5 mg PO DAILY 05/06/23 05/06/23 predniSONE [Deltasone] 20 mg PO BID PRN 05/06/23 05/06/23 Previous Rx's Medication Instructions Recorded Albuterol Inhaler [Ventolin Hfa 2 puff INHALATION RT-QID PRN #1 12/02/19 Inhaler] inhaler Allergies Allergy/AdvReac Type Severity Reaction Status Date / Time amoxicillin [Amoxicillin] Allergy Anaphylaxis Verified 12/05/23 19:34 Review of Systems ROS Statement: Those systems with pertinent positive or pertinent negative responses have been documented in the HPI. ROS Other: All systems not noted in ROS Statement are negative. Past Medical History Past Medical History: Asthma, Hypertension, Pulmonary Embolus (PE) Additional Past Medical History / Comment(s): Chronic asthma, lung collapse (April 2019), preclampsia History of Any Multi-Drug Resistant Organisms: None Reported Past Surgical History: Section Additional Past Surgical History / Comment(s): [place] tooth extraction Past Anesthesia/Blood Transfusion Reactions: No Reported Reaction Additional Past Anesthesia/Blood Transfusion Reaction / Comment(s): no anesthesia or blood before Past Psychological History: No Psychological Hx Reported Smoking Status: Never smoker Past Alcohol Use History: None Reported Past Drug Use History: None Reported - Past Family History Father Family Medical History: Asthma Mother Family Medical History: No Reported History General Exam Limitations: no limitations General appearance: alert, in no apparent distress ENT exam: Present: other (Some exudates overlying, otherwise unremarkable oropharyngeal exam. Tolerating secretions. No stridor.) Neck exam: Present: normal inspection Respiratory exam: Present: normal lung sounds bilaterally Cardiovascular Exam: Present: regular rate GI/Abdominal exam: Present: soft, normal bowel sounds. Absent: distended, tenderness, guarding, rebound, rigid Neurological exam: Present: alert, oriented X3 Skin exam: Present: warm, dry Course Vital Signs 12/05/23 12/05/23 19:28 21:54 Temperature 99.9 F H 98.6 F Pulse Rate 139 H 100 Respiratory 22 19 Rate Blood Pressure 155/95 112/64 O2 Sat by Pulse 100 98 Oximetry Medical Decision Making - Medical Decision Making Was pt. sent in by a medical professional or institution (, PA, COST ENGINEER, urgent care, hospital, or long term...) When possible be specific @ -No Did you speak to anyone other than the patient for history (EMS, parent, family, police, friend...)? What history was obtained from this source @ -No Did you review nursing and triage notes (agree or disagree)? Why? @ -I reviewed and agree with nursing and triage notes Were old charts reviewed (outside hosp., previous admission, EMS record, old EKG, old radiological studies, urgent care reports/EKG's, long term records)? Report findings @ -No old charts were reviewed Differential Diagnosis (chest pain, altered mental status, abdominal pain women, abdominal pain men, vaginal bleeding, weakness, fever, dyspnea, syncope, headache, dizziness, GI bleed, back pain, seizure, CVA, palpatations, mental health, musculoskeletal)? @ -Differential Fever: Pneumonia, viral URI, endocarditis, myocarditis, pericarditis, otitis, sinusitis, peritonsillar Abscess, retropharyngeal Abscess, epiglottitis, peritonitis, appendicitis, Sol cystitis, diverticulitis, hepatitis, colitis, UTI, PID, TOA, pyelonephritis, prostatitis, epididymitis, meningitis, encephalitis, pulmonary embolism, CVA, thyroid storm, pancreatitis, adrenal crisis, cavernous sinus thrombosis, this is not meant to be an all-inclusive list. EKG interpreted by me (3pts min.). @ -None X-rays interpreted by me (1pt min.). @ -None done CT interpreted by me (1pt min.). @ -None done U/S interpreted by me (1pt. min.). @ -None done What testing was considered but not performed or refused? (CT, X-rays, U/S, labs)? Why? @ -None What meds were considered but not given or refused? Why? @ -None Did you discuss the management of the patient with other professionals (professionals i.e. , PA, COST ENGINEER, lab, RT, psych nurse, social services director, tooler, teacher, traffic officer, case making machine operator)? Give summary @ -No Was smoking cessation discussed for >3mins.? @ -No Was critical care preformed (if so, how long)? @ -No Were there social determinants of health that impacted care today? How? (Homelessness, low income, unemployed, alcoholism, drug addiction, transportation, low edu. Level, literacy, decrease access to med. care, [facility], rehab)? @ -No Was there de-escalation of care discussed even if they declined (Discuss DNR or withdrawal of care, Hospice)? DNR status @ -No What co-morbidities impacted this encounter? (DM, HTN, Smoking, COPD, CAD, Cancer, CVA, ARF, Chemo, Hep., AIDS, mental health diagnosis, sleep apnea, morbid obesity)? @ -None Was patient admitted / discharged? Hospital course, mention meds given and route, prescriptions, significant lab abnormalities, going to OR and other pertinent info. @ -Discharge 28-year-old female presents to the ED with complaints of fever and sore throat for the past 3 days. On exam there is minimal swelling of the tonsils with overlying exudates. No evidence of abscess formation. Tolerating secretions. No stridor. Laboratory studies reviewed. Serology panel negative for COVID, flu, influenza, RSV, strep, mono. UA shows no significant evidence of infection. Symptoms likely viral in nature. Provided fluids and Toradol with significant improvement of symptoms. Discharged home in stable condition with instructions to follow-up with her PCP. Discussed return precautions with patient who verbalized agreement. Undiagnosed new problem with uncertain prognosis? @ -No Drug Therapy requiring intensive monitoring for toxicity (Heparin, Nitro, Insulin, Cardizem)? @ -No Were any procedures done? @ -No Diagnosis/symptom? @ -Viral pharyngitis Acute, or Chronic, or Acute on Chronic? @ -Acute Uncomplicated (without systemic symptoms) or Complicated (systemic symptoms)? @ -Uncomplicated Side effects of treatment? @ -No Exacerbation, Progression, or Severe Exacerbation? @ -No Poses a threat to life or bodily function? How? (Chest pain, [place], [place], pneumonia, PE, COPD, DKA, ARF, appy, cholecystitis, CVA, Diverticulitis, Homicidal, Suicidal, threat to staff... and all critical care pts) @ -No - Lab Data Lab Results 12/05/23 12/05/23 12/05/23 Range/Units 20:10 20:16 20:16 Urine Color Urine Appearance (Clear) Urine pH (5.0-8.0) Ur Specific [place] (1.001-1.035) Urine Protein (Negative) Urine Glucose (UA) (Negative) Urine Ketones (Negative) Urine Blood (Negative) Urine Nitrite (Negative) Urine Bilirubin (Negative) Urine Urobilinogen (<2.0) mg/dL Ur Leukocyte Esterase (Negative) Urine RBC (0-5) /hpf Urine WBC (0-5) /hpf Ur Squamous Epith Cells (0-4) /hpf Urine Bacteria (None) /hpf Urine HCG, Qual (Not Detectd) Heterophile Antibody Negative (Negative) Influenza Type A (PCR) Not Detected (Not Detectd) Influenza Type B (PCR) Not Detected (Not Detectd) RSV (PCR) Not Detected (Not Detectd) SARS-CoV-2 (PCR) Not Detected (Not Detectd) Group A Strep (PCR) NOT DETECTED (Not Detectd) 12/05/23 12/05/23 Range/Units 20:16 20:16 Urine Color Colorless Urine Appearance Clear (Clear) Urine pH 6.5 (5.0-8.0) Ur Specific [place] 1.003 (1.001-1.035) Urine Protein Negative (Negative) Urine Glucose (UA) Negative (Negative) Urine Ketones Negative (Negative) Urine Blood Moderate H (Negative) Urine Nitrite Negative (Negative) Urine Bilirubin Negative (Negative) Urine Urobilinogen <2.0 (<2.0) mg/dL Ur Leukocyte Esterase Negative (Negative) Urine RBC 6 H (0-5) /hpf Urine WBC 4 (0-5) /hpf Ur Squamous Epith Cells 2 (0-4) /hpf Urine Bacteria Rare H (None) /hpf Urine HCG, Qual Not Detected (Not Detectd) Heterophile Antibody (Negative) Influenza Type A (PCR) (Not Detectd) Influenza Type B (PCR) (Not Detectd) RSV (PCR) (Not Detectd) SARS-CoV-2 (PCR) (Not Detectd) Group A Strep (PCR) (Not Detectd) Disposition Clinical Impression: Viral pharyngitis Disposition: HOME SELF-CARE Condition: Good Instructions (If sedation given, give patient instructions): Strep Throat (ED) Additional Instructions: Please return to the Emergency Department if symptoms worsen or any other concerns. Please use [id number] medications as needed for symptoms. Follow-up with your primary care provider. Is patient prescribed a controlled substance at d/c from ED?: No Referrals: Tin Chowdary MD [Primary Care Provider] - 1-2 days Time of Disposition: 20:43
[2023-12-05 20:58] LABS: Appearance,Urine Clear (Clear); Bacteria,Urine Rare /hpf; Bilirubin,Urine Negative (Negative); Blood,Urine Moderate (Negative); Color,Urine Colorless; Glucose,Urine (UA) Negative (Negative); Ketones,Urine Negative (Negative); Leukocyte Esterase,Urine Negative (Negative); Nitrite,Urine Negative (Negative); PH, Urine 6.5 (5.0-8.0); Protein,Urine Negative (Negative); RBC,Urine 6 /hpf (0-5); Specific Gravity,Urine 1.003 (1.001-1.035); Squamous Epithelial Cell,Urine 2 /hpf (0-4); Urobilinogen,Urine <2.0 mg/dL (<2.0); WBC,Urine 4 /hpf (0-5)
[2023-12-05 21:55] VITALS: BP 112/64; PULSE 100; RESP 19; TEMP 98.6
== END 2023-12-05 22:05 | disposition home or self-care (01) ==
LOC: EC 18:37
DX: J02.8 Acute pharyngitis due to other specified organisms (principal); Z88.0 Allergy status to penicillin
CPT/HCPCS: 36415; 87651; 86308; 81001; 81025; 87636; 99283; 96374; 96361; J1885

== ENCOUNTER → 2024-01-12 | Outpatient (CLI) | payer MEDICARE, OTHER ==
--- NOTE | 2024-01-13 00:04 | US ---
EXAMINATION TYPE: US abdomen complete DATE OF EXAM: 01/12/2024 COMPARISON: NONE CLINICAL INDICATION: Female, 28 years old with history of R10.9 ABD PAIN; abdominal pain TECHNIQUE: Multiple sonographic images of the abdomen are obtained. FINDINGS: EXAM MEASUREMENTS: Liver Length: 13.0 cm Gallbladder Wall: 0.1 cm CBD: 0.2 cm Spleen: 7.0 cm Right Kidney: 9.3 x 3.8 x 4.2 cm Left Kidney: 10.7 x 5.3 x 4.6 cm Pancreas: wnl Liver: wnl Gallbladder: folds noted Evidence for sonographic Lawler's sign: no CBD: wnl Spleen: wnl Right Kidney: no evidence of hydronephrosis Left Kidney: no evidence of hydronephrosis Upper IVC: wnl Abd Aorta: visualized portions appear wnl IMPRESSION: Unremarkable abdomen ultrasound
== END | disposition home or self-care (01) ==
LOC: RADUSWWP 09:41
PROVIDERS: ATTEND Internal Medicine Gastroenterology
DX: R10.9 Unspecified abdominal pain (principal)
CPT/HCPCS: 76700

== ENCOUNTER 2024-02-10 20:58 | Emergency (ER) | payer MEDICARE, OTHER ==
--- NOTE | 2024-03-07 09:23 | US ---
EXAMINATION TYPE: Transabdominal DATE OF EXAM: 03/06/2024 3:02 PM COMPARISON: NONE CLINICAL INDICATION: Female, 29 years old with history of Pain; EXAM PERFORMED: Transabdominal (TA) EXAM MEASUREMENTS: GESTATIONAL AGE / DATING Physician Established: ( weeks/ days) EDC: Dates by LMP: 12/05/2023 (9 weeks/4 days) EDC: 09/10/2024 Dates by First Scan: ( weeks/ days) EDC: Dates by Current Scan for: ( weeks/ days) EDC: MATERNAL ANATOMY Uterus: 11.7 x 7.6 x 8.8 Right Ovary: 3.6 x 2.1 x 3.8 Left Ovary: 3.6 x 2.0 x 2.0 Post CDS / Adnexa: Unremarkable Presence of free fluid: No Presence of corpus luteal cyst: No Presence of subchorionic bleed: Small measuring 1.5 x 1.2 x 1.5 cm GESTATION / SURVEY CRL: 29.32 (9 weeks/6 days) Heart Rate: 169 bpm Rhythm: Normal IUP: Viable IUP IMPRESSION: 1. Single live intrauterine with calculated ultrasound age of 9 weeks 6 days with an estima bipin date of delivery of 09/08/2024. 2. Small subchorionic hemorrhage. Close clinical surveillance is recommended.
--- NOTE | 2024-03-23 12:07 | XR ---
EXAM: XR Chest, 2 Views CLINICAL HISTORY: SOB TECHNIQUE: Frontal and lateral views of the chest. COMPARISON: No relevant prior studies available. FINDINGS: Lungs:Unremarkable. No consolidation. Pleural space:Unremarkable. No pneumothorax. Heart:Unremarkable. No cardiomegaly. Mediastinum:Unremarkable. Normal mediastinal contour. Bones/joints:Unremarkable. No acute fracture. IMPRESSION: No consolidation. Radiologist: Jaswinder Barron MD Electronically Signed: 02/11/24 02:35 Study ready at 00:22 and initial results transmitted at 02:35 MTDD
== END 2024-02-11 02:45 | disposition home or self-care (01) ==
LOC: EC 20:58
CPT/HCPCS: 71046; 76801; 86850; 86900; 86901; 93005; 99284

== ENCOUNTER 2024-02-14 02:44 | Emergency (ER) | payer MEDICARE, OTHER ==
[2024-02-14] MEDS ORDERED: predniSONE 20 MG TAB ONE (04:53)
[2024-02-14] MEDS ORDERED: NIFEdipine 10 MG CAP PO ONE (16:30)
== END 2024-02-14 06:30 | disposition home or self-care (01) ==
LOC: EC 02:44
CPT/HCPCS: 99283

== ENCOUNTER 2024-04-23 03:39 | Emergency (ER) | payer MEDICARE ==
[2024-04-23 03:46] VITALS: TEMP 98.1
--- NOTE | 2024-04-23 04:06 | ED ---
General Adult HPI - General Chief complaint: Shortness of Breath Stated complaint: ANNE Time Seen by Provider: 04/23/24 03:57 Source: patient Mode of arrival: ambulatory Limitations: no limitations - History of Present Illness Initial comments: Patient is a 29-year-old female with a past medical history of asthma, currently 20 weeks presenting for asthma exacerbation. Patient states is similar to prior asthma exacerbations. Shortness of breath started yesterday with dry frequent cough. Did not improve with home inhalers. No recent steroid use. Presents tonight for persistent shortness of breath. Denies any chest pain, hemoptysis, abdominal pain, fevers, chills. Is currently on Lovenox for prior PEs post . States she has required a chest tube in the past due to complications for asthma exacerbation. Has been hospitalized for this before. Endorses that she does feel baby continue to move. - Related Data Home Medications Medication Instructions Recorded Confirmed Albuterol Nebulized [Ventolin 2.5 mg INHALATION RT-TID 03/10/21 05/06/23 Nebulized] Cabergoline 0.5 mg PO TH 05/06/23 05/06/23 Ipratropium-Albuterol Nebulize 3 ml INHALATION RT-QID 05/06/23 05/06/23 [Duoneb 0.5 mg-3 mg/3 ml Soln] Montelukast [Singulair] 10 mg PO HS 05/06/23 05/06/23 Omalizumab [Xolair] 150 mg SQ Q28D 05/06/23 05/06/23 amLODIPine [Norvasc] 2.5 mg PO HS 05/06/23 05/06/23 amLODIPine [Norvasc] 5 mg PO DAILY 05/06/23 05/06/23 predniSONE [Deltasone] 20 mg PO BID PRN 05/06/23 05/06/23 Previous Rx's Medication Instructions Recorded Albuterol Inhaler [Ventolin Hfa 2 puff INHALATION RT-QID PRN #1 12/02/19 Inhaler] inhaler predniSONE [Deltasone] 20 mg PO BID 5 Days #10 tab 04/23/24 Allergies Allergy/AdvReac Type Severity Reaction Status Date / Time amoxicillin [Amoxicillin] Allergy Anaphylaxis Verified 12/05/23 19:34 doxycycline Allergy Anaphylaxis Verified 04/23/24 03:46 Review of Systems ROS Statement: Those systems with pertinent positive or pertinent negative responses have been documented in the HPI. ROS Other: All systems not noted in ROS Statement are negative. Past Medical History Past Medical History: Asthma, Hypertension, Pulmonary Embolus (PE) Additional Past Medical History / Comment(s): Chronic asthma, lung collapse (April 2019), preclampsia History of Any Multi-Drug Resistant Organisms: None Reported Past Surgical History: Section Additional Past Surgical History / Comment(s): [place] tooth extraction Past Anesthesia/Blood Transfusion Reactions: No Reported Reaction Additional Past Anesthesia/Blood Transfusion Reaction / Comment(s): no anesthesia or blood before Past Psychological History: No Psychological Hx Reported Smoking Status: Never smoker Past Alcohol Use History: None Reported Past Drug Use History: None Reported - Past Family History Father Family Medical History: Asthma Mother Family Medical History: No Reported History General Exam - General Exam Comments Initial Comments: PE: CONSTITUTIONAL: Mild distress, nontoxic appearing SKIN: Warm, dry, no jaundice, hives or petechiae EYES: Pupils are equally round, extraocular movements intact without nystagmus, clear conjunctiva, non-icteric sclera HENT: Normocephalic, atraumatic, moist mucus membranes, oropharynx clear without exudates NECK: , Full range of motion, normal appearance PULMONARY: Decreased breath sounds throughout all lung schulte, scant wheezes in apices of lungs, tachypnea, tripoding no focal breath sounds CARDIOVASCULAR: Tachycardia, regular rhythm, normal S1 and S2. No appreciated murmurs, rubs or gallops. Strong radial pulses with intact distal perfusion. No lower extremity edema GASTROINTESTINAL: Gravid abdomen soft, active bowel sounds throughout, non- tender, non-distended, no palpable masses, no rebound or guarding. No hepatosplenomegaly GENITOURINARY: MUSCULOSKELETAL: Extremities have no gross deformity, no edema, redness, or swelling. No calf swelling NEUROLOGIC:_a/o x 3, GCS 15, normal mentation and speech. Moves all extremities x 4 without motor or sensory deficit PSYCHIATRIC:_normal mood and affect, thought process is clear and linear Limitations: no limitations Course Vital Signs 04/23/24 04/23/24 04/23/24 03:42 04:00 04:10 Temperature 98.1 F Pulse Rate 144 H 121 H Respiratory 24 24 Rate Blood Pressure 128/86 O2 Sat by Pulse 99 Oximetry 04/23/24 04/23/24 04/23/24 04:22 04:37 04:49 Temperature Pulse Rate 121 H 130 H 122 H Respiratory Rate Blood Pressure O2 Sat by Pulse Oximetry 04/23/24 04/23/24 04/23/24 05:05 05:18 06:26 Temperature Pulse Rate 120 H 124 H 124 H Respiratory 16 Rate Blood Pressure 107/40 O2 Sat by Pulse 98 Oximetry Medical Decision Making - Medical Decision Making Was pt. sent in by a medical professional or institution (MANJU Randall, [employer] PRINCIPAL, urgent care, hospital, or senior care...) When possible be specific @ -[No] Did you speak to anyone other than the patient for history (EMS, parent, family, police, friend...)? What history was obtained from this source @ -[No] Did you review nursing and triage notes (agree or disagree)? Why? @ -[I reviewed and agree with nursing and triage notes] Were old charts reviewed (outside hosp., previous admission, EMS record, old EKG, old radiological studies, urgent care reports/EKG's, senior care records)? Report findings @ -[No old charts were reviewed] Differential Diagnosis (chest pain, altered mental status, abdominal pain women, abdominal pain men, vaginal bleeding, weakness, fever, dyspnea, syncope, headache, dizziness, GI bleed, back pain, seizure, CVA, palpatations, mental health, musculoskeletal)? @ -[not applicable] EKG interpreted by me (3pts min.). @ -[As above] X-rays interpreted by me (1pt min.). @ -[None done] CT interpreted by me (1pt min.). @ -[None done] U/S interpreted by me (1pt. min.). @ -[None done] What testing was considered but not performed or refused? (CT, X-rays, U/S, labs)? Why? @ -[None] What meds were considered but not given or refused? Why? @ -[None] Did you discuss the management of the patient with other professionals (professionals i.e. MANJU Randall, [employer] PRINCIPAL, lab, RT, psych nurse, transition social worker, shopper, teacher, rating officer, top case assembler)? Give summary @ -[No] Was smoking cessation discussed for >3mins.? @ -[No] Was critical care preformed (if so, how long)? @ -[No] Were there social determinants of health that impacted care today? How? (Homelessness, low income, unemployed, alcoholism, drug addiction, transportation, low edu. Level, literacy, decrease access to med. care, mcfp, re hab)? @ -[No] Was there de-escalation of care discussed even if they declined (Discuss DNR or withdrawal of care, Hospice)? @ -[No] What co-morbidities impacted this encounter? (DM, HTN, Smoking, COPD, CAD, Cancer, CVA, ARF, Chemo, Hep., AIDS, mental health diagnosis, sleep apnea, morbid obesity)? @ -[None] Was patient admitted / discharged? Hospital course, mention meds given and route, prescriptions, significant lab abnormalities, going to OR and other pertinent info. @ -[hospital course] discharged 29-year-old female past medical history of asthma, prior PE on lovenox, currently 20 weeks , presenting for asthma exacerbation. On my assessment patient is in mild distress, tachypneic and tripoding, scant air movement bilaterally. Called RT, administer [id number] nebulizer treatments, 125 mg IV Solu-Medrol and IV magnesium. On reassessments aeration improved in bilateral lung schulte. Pending 1 more nebulizer treatment. Patient is endorsing improvement of symptoms. After completion of nebulizer treatments breath sounds vastly improved, wheezes no longer auscultated. Patient remained tachycardic with heart rate in the 120s, I highly suspect this is secondary to administration of nebulizer treatments and steroids however will continue to observe patient to ensure improvment Heart rate decreased 110 bpm. I reassessed patient and she feels improved. I did discuss with patient that she is still mildly tachycardic and offered further observation in the ED to monitor HR vs discharge home. Pt prefers discharge at this time. Will discharge with oral prednisone. Instructed patient to increase utilization of her nebulizer or albuterol inhaler and we discussed signs and symptoms warranting return to the emergency department. Patient to follow-up with her eye clinic manager as well. All questions answered and patient was discharged in good condition In my medical judgment there is currently no evidence of an immediate life- threatening or surgical condition. Discharge is therefore indicated at this time. [Discharge treatment instructions, follow up instructions, and appropriate emergency department return precautions were discussed with the patient and/or medical decision maker. Patient and/or medical decision maker expressed understanding of and agreed with the treatment plan, follow up instructions, and emergency department return precaution. All patient's and/or medical decision maker's questions were answered.] [The patient was advised that a small risk still exists that a serious condition could develop and was therefore instructed to return to the ED for any changes in symptoms, persistent symptoms, inability to obtain proper follow-up or for any further concerns. Patient received verbal and written instructions for this condition.] Undiagnosed new problem with uncertain prognosis? @ -[No] Drug Therapy requiring intensive monitoring for toxicity (Heparin, Nitro, Insulin, Cardizem)? @ -[No] Were any procedures done? @ -[No] Diagnosis/symptom? @ -Acute asthma exacerbation Acute, or Chronic, or Acute on Chronic? @ -Acute Uncomplicated (without systemic symptoms) or Complicated (systemic symptoms)? @ -Complicated Side effects of treatment? @ -[No] Exacerbation, Progression, or Severe Exacerbation? @Severe exacerbation Poses a threat to life or bodily function? How? (Chest pain, [place], [place], pneumonia, PE, COPD, DKA, ARF, appy, cholecystitis, CVA, Diverticulitis, Homicidal, Suicidal, threat to staff... and all critical care pts) @ -Yes Disposition Clinical Impression: Asthma exacerbation Disposition: HOME SELF-CARE Condition: Good Instructions (If sedation given, give patient instructions): Asthma (ED) Additional Instructions: Every disease is a spectrum and a small chance still exists that a serious condition could develop, for this reason, please monitor yourself closely for new, changing or worsening symptoms, coughing up blood, swelling in your legs, chest pain, lightheadedness or dizziness, severe abdominal pain, decreased movements, fever, inability to tolerate/keep down fluids or your medications, inability to follow up with outpatient providers as instructed and should you experience these symptoms or should you have any further concerns for your wellbeing please return to the ED or call 911 immediately. Take steroids as prescribed. Please use your home albuterol inhaler or nebulizer as needed for wheezing. Today you may use your inhaler up to every 4 hours as needed for wheezing and shortness of breath. Tomorrow as symptoms are improving decrease to once every 6 hours. On the third day decrease to once every 8 hours and then use as needed. Please call your eye clinic manager to discuss today's visit, and follow up visit. Please call your electrodynamicist for follow up regarding today's visit. PLEASE call your primary care physician as soon as possible to arrange / discuss plan for followup appointment. Appointment in the next 1-3 days is strongly encouraged if possible. PLEASE let us know here before you leave if there is anything further we can do to be of any assistance. Take care and feel Better! Prescriptions: predniSONE [Deltasone] 20 mg PO BID 5 Days #10 tab Is patient prescribed a controlled substance at d/c from ED?: No When asked, does pt state using other controlled substances?: No Referrals: Donita Miller MD [Primary Care Provider] - 1-2 days
[2024-04-23] MEDS: ALBUTEROL NEBULIZED 2.5 MG/3 ML INHALATION SCH (04:07)
[2024-04-23] MEDS: IPRATROPIUM-ALBUTEROL 3 ML NEB INHALATION STA (04:08)
[2024-04-23] MEDS: methylPREDNISolone SOD SUCCI 125 MG/2 ML VIAL IV STA (04:10)
[2024-04-23] MEDS: MAGNESIUM SULFATE-D5W PMX 1 GM in DEXTROSE/WATER 1 100ML.BAG IVPB ONE (04:17)
[2024-04-23] MEDS: ALBUTEROL NEB (CONC) 2.5 MG/0.5 ML INHALATION SCH (05:03)
[2024-04-23] MEDS: ALBUTEROL NEBULIZED 2.5 MG/3 ML INHALATION STA (05:03)
[2024-04-23 05:19] VITALS: PULSE 124
[2024-04-23 06:27] VITALS: BP 107/40; RESP 16
== END 2024-04-23 07:12 | disposition home or self-care (01) ==
LOC: EC 03:39
CPT/HCPCS: 94640; 96365; 96374; 99285

== ENCOUNTER 2024-04-29 20:30 | Outpatient (CLI) | payer MEDICARE ==
[2024-04-29] MEDS: FAMOTIDINE 20 MG TAB PO STA (21:14)
[2024-04-29 21:17] LABS: Basophils % (A) 0 %; Eosinophils # (A) 0.2 k/uL (0-0.7); Eosinophils % (A) 1 %; HCT 34.7 % (34.0-46.0); HGB 11.4 gm/dL (11.4-16.0); Lymphocytes % (A) 13 %; MCHC 32.7 g/dL (31.0-37.0); MCV 91.7 fL (80.0-100.0); Mean Platelet Volume 7.8; Monocytes # (A) 0.9 k/uL (0-1.0); Monocytes % (A) 6 %; Neutrophils # (A) 11.6 k/uL (1.3-7.7); Neutrophils % (A) 78 %; Platelet Count 290 k/uL (150-450); RBC 3.78 m/uL (3.80-5.40); RDW 13.8 % (11.5-15.5); WBC 14.9 k/uL (3.8-10.6)
[2024-04-29 21:28] LABS: ALT 10 U/L (4-34); AST 17 U/L (14-36); African American GFR (CKD) >90 (>60 ml/min/1.73 sqM); Blood Urea Nitrogen 7 mg/dL (7-17); LDH 215 U/L (120-246); Non-African American GFR(CKD) >90 (>60 ml/min/1.73 sqM); Uric Acid 2.1 mg/dL (3.7-7.4)
[2024-04-29 21:58] VITALS: BP 170/106; PULSE 134; RESP 16; TEMP 98.6
--- NOTE | 2024-05-11 07:40 | P.MSEPDOC ---
Presenting Problems - Arrival Data Date of Arrival on Unit: 04/29/24 Time of Arrival on Unit: 20:30 Mode of Transport: Ambulatory - Complaint OB-Reason for Admission/Chief Complaint: Pain, PIH Comment: Comment: pt presents to tr with c/o abd pain. pt states "it's not my baby or my uterus, it's my actual belly. I don't know why they sent me up here." pt states she's been having increased heartburn, and constipation. pt took miralax a few days ago, and has had a bm but still having pain. Medical History - Information : 7 Para: 4 Term: 1 : 3 Abortions: Spontaneous or Elective: 2 Number of Living Children: 4 - Gestational Age Gestational Age by GLYNN (wks/days): 20 Weeks and 6 Days - History Complications: Preeclampsia, Multiple , Prior Comment: pt is dom. has care at [facility] for high risk . pt has hx of 27wk abruption with 2nd baby, and had a 35wkr with last baby due to preeclampsia. pt states she also had blood clots in her lungs after last c/s. pt is on lovenox and procardia daily Review of Systems - Review of Systems Constitutional: No problems Breast: No problems ENT: No problems Cardiovascular: No problems Respiratory: No problems Gastrointestinal: Pain Genitourinary: No problems Musculoskeletal: No problems Neurological: No problems Skin: No problems Vital Signs - Temperature Temperature: 98.6 F Temperature Source: Temporal Artery Scan - Pulse Pulse Oximetery Pulse Rate: 134 Pulse Assessment Method: Pulse Oximetry - Respirations Respiratory Rate: 16 Oxygen Delivery Method: Room Air O2 Sat by Pulse Oximetry: 100 - Blood Pressure Right Arm Blood Pressure: 170/106 Blood Pressure Mean: 127 Blood Pressure Source: Automatic Cuff - Comment Vital Signs Comment: BP cycled, last BP 132/82 Medical Screen Scoring - Uterine Contractions Resting: Soft to palpation - Assessment - Baby A Baseline FHR: 145 Heart Rate - NICHD Category: Category I (Normal) Physician Notification - Physician Notified Physician Notified Date: 04/29/24 Physician Notified Time: 21:39 Physician: Nimco Lux New Order Received: Yes - Notification Comment Comment: labs ordered and reviewed, BP cycled and reviewed, order to discharge pt. home and follow up with her OB in [facility] Maternal Triage Index - Maternal Triage Index Presenting for scheduled procedure w/no complaint: No - Stat/Priority 1 Stat Priority 1: No - Urgent/Priority 2 Urgent Priority 2: Yes Provider Notified: Nimco Lux Provider Notified Time: 20:57 Criteria Met for Priority 2: 20 12/01, hx pre-e, high BP on inital assesment Disposition - Disposition OB Disposition: Discharge to home Discharge Date: 04/29/24 Discharge Time: 21:50 I agree with the RN Medical Screening Exam: Yes Case reviewed; plan agreed upon as documented in EMR&OBIX.: Yes Diagnosis: PAIN, UNSPECIFIED
== END 2024-04-29 21:50 | disposition home or self-care (01) ==
LOC: FBPOP 20:30
PROVIDERS: ATTEND Obstetrics & Gynecology Obstetrics
DX: O26.892 Other specified pregnancy related conditions, second trimester (principal); O13.2 Gestational [pregnancy-induced] hypertension without significant proteinuria, second trimester; R10.9 Unspecified abdominal pain; Z3A.20 20 weeks gestation of pregnancy; Z87.59 Personal history of other complications of pregnancy, childbirth and the puerperium; Z88.1 Allergy status to other antibiotic agents
CPT/HCPCS: 36415; 82565; 83615; 84450; 84460; 84520; 84550; 85025; G0463; 99215

== ENCOUNTER 2024-06-15 09:03 | Emergency (ER) | payer MEDICARE ==
[2024-06-15 09:18] VITALS: BP 126/77; RESP 18; TEMP 98.6
--- NOTE | 2024-06-15 09:39 | ED ---
SOB HPI - General Chief Complaint: Shortness of Breath Stated Complaint: ANNE/28wks preg Time Seen by Provider: 06/15/24 09:38 Source: patient Mode of arrival: ambulatory Limitations: no limitations - History of Present Illness Initial Comments: 29-year-old female presented to the ER for evaluation of shortness of breath. Patient reports a extensive past medical history including asthma, hypertension, pulmonary embolism and pneumothorax. She is currently on enoxaparin 40 mg. Patient is also 28 weeks and is following up at [facility]. She reports on Tuesday she received the Tdap vaccination. She states since then she has been ill and complaining of shortness of breath. She has been taking nebulized albuterol without relief. She states she had a fever Tuesday through Tuesday as well. She did have an albuterol treatment prior to arrival. - Related Data Home Medications Medication Instructions Recorded Confirmed Albuterol Nebulized [Ventolin 2.5 mg INHALATION RT-TID 03/10/21 04/29/24 Nebulized] Ipratropium-Albuterol Nebulize 3 ml INHALATION RT-QID 05/06/23 04/29/24 [Duoneb 0.5 mg-3 mg/3 ml Soln] Enoxaparin [Lovenox] 40 mg SQ Q12H 04/29/24 04/29/24 NIFEdipine XL [Procardia XL] 30 mg PO DAILY 04/29/24 04/29/24 Vit No.180/Iron/Folic 1 each PO DAILY 04/29/24 04/29/24 [ Plus Tablet] Previous Rx's Medication Instructions Recorded Albuterol Inhaler [Ventolin Hfa 2 puff INHALATION RT-QID PRN #1 12/02/19 Inhaler] inhaler Albuterol Nebulized [Ventolin 2.5 mg INHALATION Q4H PRN #75 ml 06/15/24 Nebulized] Allergies Allergy/AdvReac Type Severity Reaction Status Date / Time amoxicillin [Amoxicillin] Allergy Anaphylaxis Verified 06/15/24 09:12 doxycycline Allergy Anaphylaxis Verified 06/15/24 09:12 Review of Systems ROS Statement: Those systems with pertinent positive or pertinent negative responses have been documented in the HPI. ROS Other: All systems not noted in ROS Statement are negative. Past Medical History Past Medical History: Asthma, Hypertension, Pulmonary Embolus (PE) Additional Past Medical History / Comment(s): Chronic asthma, lung collapse (April 2019), preclampsia History of Any Multi-Drug Resistant Organisms: None Reported Past Surgical History: Section Additional Past Surgical History / Comment(s): [place] tooth extraction Past Anesthesia/Blood Transfusion Reactions: No Reported Reaction Additional Past Anesthesia/Blood Transfusion Reaction / Comment(s): no anesthesia or blood before Past Psychological History: No Psychological Hx Reported Smoking Status: Never smoker Past Alcohol Use History: None Reported Past Drug Use History: None Reported - Past Family History Father Family Medical History: Asthma Mother Family Medical History: No Reported History General Exam Limitations: no limitations General appearance: alert, in no apparent distress Respiratory exam: Present: normal lung sounds bilaterally. Absent: respiratory distress, wheezes, rales, rhonchi, stridor Cardiovascular Exam: Present: regular rate, normal rhythm, normal heart sounds. Absent: systolic murmur, diastolic murmur, rubs, gallop, clicks GI/Abdominal exam: Present: other ( abdomen) Extremities exam: Present: normal inspection, full ROM, normal capillary refill. Absent: tenderness, pedal edema, joint swelling, calf tenderness Neurological exam: Present: alert, oriented X3, CN II-XII intact Skin exam: Present: warm, dry, intact, normal color. Absent: rash Course Vital Signs 06/15/24 06/15/24 06/15/24 09:12 09:59 10:11 Temperature 98.6 F Pulse Rate 108 H 88 90 Respiratory 18 Rate Blood Pressure 126/77 O2 Sat by Pulse 99 Oximetry - Reevaluation(s) Reevaluation #1: 06/15/24 10:35 heart tones completed by labor and delivery heart tones 150s. Medical Decision Making - Medical Decision Making Was pt. sent in by a medical professional or institution (, PA, PERSONAL LINES ACCOUNT MANAGER, urgent care, hospital, or long term...) When possible be specific @ -[No] Did you speak to anyone other than the patient for history (EMS, parent, family, police, friend...)? What history was obtained from this source @ -[No] Did you review nursing and triage notes (agree or disagree)? Why? @ -[I reviewed and agree with nursing and triage notes] Were old charts reviewed (outside hosp., previous admission, EMS record, old EKG, old radiological studies, urgent care reports/EKG's, long term records)? Report findings @ -[No old charts were reviewed] Differential Diagnosis (chest pain, altered mental status, abdominal pain women, abdominal pain men, vaginal bleeding, weakness, fever, dyspnea, syncope, headache, dizziness, GI bleed, back pain, seizure, CVA, palpatations, mental health, musculoskeletal)? @ -Asthma exacerbation, viral illness, pneumothorax... This list is not meant to be all-inclusive EKG interpreted by me (3pts min.). @ -[None done] X-rays interpreted by me (1pt min.). @ -CXR interpreted by me negative for acute cardiopulmonary process. CT interpreted by me (1pt min.). @ -[None done] U/S interpreted by me (1pt. min.). @ -[None done] What testing was considered but not performed or refused? (CT, X-rays, U/S, labs)? Why? @ -[None] What meds were considered but not given or refused? Why? @ -[None] Did you discuss the management of the patient with other professionals (professionals i.e. , PA, PERSONAL LINES ACCOUNT MANAGER, lab, RT, psych nurse, social insurance analyst, reo asset manager, teacher, systems support officer, heel caser)? Give summary @ -[No] Was smoking cessation discussed for >3mins.? @ -[No] Was critical care preformed (if so, how long)? @ -[No] Were there social determinants of health that impacted care today? How? (Homelessness, low income, unemployed, alcoholism, drug addiction, transportation, low edu. Level, literacy, decrease access to med. care, snf, rehab)? @ -[No] Was there de-escalation of care discussed even if they declined (Discuss DNR or withdrawal of care, Hospice)? DNR status @ -[No] What co-morbidities impacted this encounter? (DM, HTN, Smoking, COPD, CAD, Cancer, CVA, ARF, Chemo, Hep., AIDS, mental health diagnosis, sleep apnea, morbid obesity)? @ -, asthma, history of PE currently on enoxaparin, history pneumothorax, hypertension Was patient admitted / discharged? Hospital course, mention meds given and route, prescriptions, significant lab abnormalities, going to OR and other pertinent info. @ -[hospital course] Undiagnosed new problem with uncertain prognosis? @ -[No] Drug Therapy requiring intensive monitoring for toxicity (Heparin, Nitro, Insulin, Cardizem)? @ -[No] Were any procedures done? @ -[No] Diagnosis/symptom? @ -[default] Acute, or Chronic, or Acute on Chronic? @ -[default] Uncomplicated (without systemic symptoms) or Complicated (systemic symptoms)? @ -[default] Side effects of treatment? @ -[No] Exacerbation, Progression, or Severe Exacerbation? @ -[No] Poses a threat to life or bodily function? How? (Chest pain, [place], [place], pneumonia, PE, COPD, DKA, ARF, appy, cholecystitis, CVA, Diverticulitis, Homicidal, Suicidal, threat to staff... and all critical care pts) @ -[No] - Lab Data Lab Results 06/15/24 Range/Units 09:44 Influenza Type A (PCR) Not Detected (Not Detectd) Influenza Type B (PCR) Not Detected (Not Detectd) RSV (PCR) Not Detected (Not Detectd) SARS-CoV-2 (PCR) Not Detected (Not Detectd) Disposition Clinical Impression: Asthma exacerbation Disposition: HOME SELF-CARE Condition: Stable Instructions (If sedation given, give patient instructions): Asthma (DC) Additional Instructions: Follow-up with BLOWN FILM EXTRUSION OPERATOR in the next 1 to 2 days. Return to the ER for any new or worsening concerns. Prescriptions: Albuterol Nebulized [Ventolin Nebulized] 2.5 mg INHALATION Q4H PRN #75 ml PRN Reason: difficulty in breathing Is patient prescribed a controlled substance at d/c from ED?: No Referrals: [facility] [NON-STAFF] - 1-2 days [facility] [NON-STAFF] - 1-2 days None,Stated [Primary Care Provider] - 1-2 days Nimco Lux DO [Doctor of Osteopathic Medicine] - 1-2 days Forms: Area PCPs Time of Disposition: 11:00
[2024-06-15] MEDS: IPRATROPIUM-ALBUTEROL 3 ML NEB INHALATION STA (09:59)
[2024-06-15 10:13] VITALS: PULSE 90
--- NOTE | 2024-06-15 10:41 | XR ---
EXAMINATION TYPE: XR chest 2V DATE OF EXAM: 06/15/2024 10:31 AM COMPARISON: 02/11/2024 CLINICAL INDICATION: Female, 29 years old with history of sob, TECHNIQUE: Frontal and lateral views of the chest are obtained. FINDINGS: There is no focal air space opacity, pleural effusion, or pneumothorax seen. The cardiac silhouette size is within normal limits. The osseous structures are intact. IMPRESSION: No acute cardiopulmonary process. [facility], , 06/15/2024 10:39 AM
== END 2024-06-15 11:15 | disposition home or self-care (01) ==
LOC: EC 09:03
DX: O99.513 Diseases of the respiratory system complicating pregnancy, third trimester (principal); J45.901 Unspecified asthma with (acute) exacerbation; Z88.8 Allergy status to other drugs, medicaments and biological substances; Z88.0 Allergy status to penicillin; Z86.711 Personal history of pulmonary embolism; Z3A.28 28 weeks gestation of pregnancy
CPT/HCPCS: 71046; 87636; 94640; 99285

== ENCOUNTER 2024-07-27 23:06 | Emergency (ER) | payer MEDICARE ==
--- NOTE | 2024-07-27 23:41 | ED ---
SOB HPI - General Chief Complaint: Shortness of Breath Stated Complaint: SOB -33 wks preg Time Seen by Provider: 07/27/24 23:15 Source: patient Mode of arrival: ambulatory Limitations: no limitations - History of Present Illness Initial Comments: This patient is a 29-year-old woman who is , she is G7, P4, approximately 33 weeks . Patient states that she has history of hypertension, previous preeclampsia, and asthma. She has had what she believes is worsening of her asthma going back about 5 days. She is having to use her albuterol more frequently which she states is now 4 times a day. She had gone to see her regrind mill operator, Dr. Fenton who wanted to have her on prednisone 40 mg/day to help relieve her asthma. The patient called her business test analyst who practices through [facility] and was told to go to emergency department and not to start the prednisone related to concerns it may elevate her blood pressure. Patient currently taking nifedipine 30 mg for blood pressure. She states that with her fourth and with her last she did develop preeclampsia and her last had to be delivered at 35 weeks due to preeclampsia. Patient currently is denying headache, change in vision, abdominal pains, nausea and vom iting. She has not noted any leg edema. Patient states that the asthma symptoms include some shortness of breath, chest tightness, cough which is nonproductive. Has not noted fever or chills. No change in urination or bowel movements. No vaginal discharge or bleeding MD Complaint: shortness of breath Onset/Timin -: days(s) Severity scale (1-10): 0 Consistency: constant Improves With: bronchodilators Worsens With: exertion Known History Of: asthma Associated Symptoms: denies other symptoms Treatments Prior to Arrival: bronchodilator - Related Data Home Oxygen Therapy: No Home Medications Medication Instructions Recorded Confirmed Albuterol Nebulized [Ventolin 2.5 mg INHALATION RT-TID 03/10/21 06/29/24 Nebulized] Ipratropium-Albuterol Nebulize 3 ml INHALATION RT-QID 05/06/23 06/29/24 [Duoneb 0.5 mg-3 mg/3 ml Soln] Enoxaparin [Lovenox] 40 mg SQ Q12H 04/29/24 06/29/24 NIFEdipine XL [Procardia XL] 30 mg PO DAILY 04/29/24 06/29/24 Vit No.180/Iron/Folic 1 each PO DAILY 04/29/24 06/29/24 [ Plus Tablet] Previous Rx's Medication Instructions Recorded Albuterol Inhaler [Ventolin Hfa 2 puff INHALATION RT-QID PRN #1 12/02/19 Inhaler] inhaler Albuterol Nebulized [Ventolin 2.5 mg INHALATION Q4H PRN #75 ml 06/15/24 Nebulized] Allergies Allergy/AdvReac Type Severity Reaction Status Date / Time amoxicillin [Amoxicillin] Allergy Anaphylaxis Verified 07/27/24 23:13 doxycycline Allergy Anaphylaxis Verified 07/27/24 23:13 Review of Systems ROS Statement: Those systems with pertinent positive or pertinent negative responses have been documented in the HPI. ROS Other: All systems not noted in ROS Statement are negative. Constitutional: Denies: fever, chills, weakness Eyes: Denies: eye pain, vision change Respiratory: Reports: cough, dyspnea, wheezes. Denies: hemoptysis Cardiovascular: Reports: dyspnea on exertion. Denies: chest pain, palpitations, orthopnea, edema, syncope Gastrointestinal: Denies: abdominal pain, nausea, vomiting, diarrhea Genitourinary: Denies: dysuria, hematuria, discharge, abnormal menses Musculoskeletal: Denies: back pain Skin: Denies: rash Neurological: Denies: headache, weakness Past Medical History Past Medical History: Asthma, Hypertension, Pulmonary Embolus (PE) Additional Past Medical History / Comment(s): Chronic asthma, lung collapse (April 2019), preclampsia History of Any Multi-Drug Resistant Organisms: None Reported Past Surgical History: Section Additional Past Surgical History / Comment(s): [place] tooth extraction Past Anesthesia/Blood Transfusion Reactions: No Reported Reaction Additional Past Anesthesia/Blood Transfusion Reaction / Comment(s): no anesthesia or blood before Past Psychological History: No Psychological Hx Reported Smoking Status: Never smoker Past Alcohol Use History: None Reported Past Drug Use History: None Reported - Past Family History Father Family Medical History: Asthma Mother Family Medical History: No Reported History General Exam Limitations: no limitations General appearance: alert, in no apparent distress Head exam: Present: atraumatic, normocephalic Eye exam: Present: normal appearance. Absent: scleral icterus, conjunctival injection ENT exam: Present: normal oropharynx Neck exam: Present: normal inspection Respiratory exam: Present: normal lung sounds bilaterally. Absent: respiratory distress, wheezes, rales, rhonchi, stridor, accessory muscle use, decreased breath sounds, prolonged expiratory Cardiovascular Exam: Present: normal rhythm, tachycardia, systolic murmur. Absent: diastolic murmur, rubs, gallop GI/Abdominal exam: Present: soft, other (gravid uterus palpable well above the umbilicus. Movements noted). Absent: distended, tenderness, guarding, rebound, rigid Extremities exam: Present: normal inspection, normal capillary refill. Absent: tenderness, pedal edema, calf tenderness Back exam: Present: normal inspection. Absent: CVA tenderness (R), CVA tenderness (L) Neurological exam: Present: alert Skin exam: Present: warm, dry, intact, normal color. Absent: rash Course Vital Signs 07/27/24 07/27/24 07/28/24 23:08 23:30 00:00 Temperature 97.8 F Pulse Rate 117 H 100 101 H Respiratory 18 20 18 Rate Blood Pressure 148/102 144/99 137/95 O2 Sat by Pulse 100 100 100 Oximetry 07/28/24 07/28/24 07/28/24 01:00 01:09 01:55 Temperature Pulse Rate 89 86 107 H Respiratory 16 Rate Blood Pressure 123/83 O2 Sat by Pulse 98 Oximetry 07/28/24 02:39 Temperature 98.3 F Pulse Rate 92 Respiratory 18 Rate Blood Pressure 110/62 O2 Sat by Pulse 100 Oximetry Medical Decision Making - Medical Decision Making Was pt. sent in by a medical professional or institution (, PA, SERVICE TRANSFORMER REPAIR SUPERVISOR, urgent care, hospital, or fci...) When possible be specific @ -[No] Did you speak to anyone other than the patient for history (EMS, parent, family, police, friend...)? What history was obtained from this source @ -[No] Did you review nursing and triage notes (agree or disagree)? Why? @ -[I reviewed and agree with nursing and triage notes] Were old charts reviewed (outside hosp., previous admission, EMS record, old EKG, old radiological studies, urgent care reports/EKG's, fci records)? Report findings @ -[No old charts were reviewed] Differential Diagnosis (chest pain, altered mental status, abdominal pain women, abdominal pain men, vaginal bleeding, weakness, fever, dyspnea, syncope, headache, dizziness, GI bleed, back pain, seizure, CVA, palpatations, mental health, musculoskeletal)? @ -[Differential Dyspnea: Coronary syndrome, arrhythmia, tamponade, asthma, COPD, pulmonary embolism, pneumonia, pneumothorax, pulmonary effusion, anaphylaxis, diabetic ketoacidosis, flailed chest, pulmonary contusion, diaphragmatic rupture, anemia, neuromuscular, this is not meant to be an all-inclusive list. EKG interpreted by me (3pts min.). @ -[I interpreted as above] X-rays interpreted by me (1pt min.). @ -[None done] CT interpreted by me (1pt min.). @ -[None done] U/S interpreted by me (1pt. min.). @ -[None done] What testing was considered but not performed or refused? (CT, X-rays, U/S, labs)? Why? @ -[Chest x-ray was considered, but the patient is not having fever or sputum production and states is similar to previous asthma exacerbation so will limit radiation exposure. What meds were considered but not given or refused? Why? @ -[None] Did you discuss the management of the patient with other professionals (professionals i.e. , PA, SERVICE TRANSFORMER REPAIR SUPERVISOR, lab, RT, psych nurse, social worker school, bpm architect, teacher, aoc director intelligence officer, director of casework services)? Give summary @ -[No] Was smoking cessation discussed for >3mins.? @ -[No] Was critical care preformed (if so, how long)? @ -[No] Were there social determinants of health that impacted care today? How? (Homelessness, low income, unemployed, alcoholism, drug addiction, transportation, low edu. Level, literacy, decrease access to med. care, snf, rehab)? @ -[No] Was there de-escalation of care discussed even if they declined (Discuss DNR or withdrawal of care, Hospice)? DNR status @ -[No] What co-morbidities impacted this encounter? (DM, HTN, Smoking, COPD, CAD, Cancer, CVA, ARF, Chemo, Hep., AIDS, mental health diagnosis, sleep apnea, morbid obesity)? @ -[History of asthma Was patient admitted / discharged? Hospital course, mention meds given and route, prescriptions, significant lab abnormalities, going to OR and other pertinent info. @ -[Patient is a 29-year-old woman here to have evaluation for dyspnea she states consistent with asthma exacerbation. She has had significant improvement with treatment here, feels better and would like to go home. Discussed appropriate further care and follow-up as well as return parameters. Undiagnosed new problem with uncertain prognosis? @ -[No] Drug Therapy requiring intensive monitoring for toxicity (Heparin, Nitro, Insulin, Cardizem)? @ -[No] Were any procedures done? @ -[No] Diagnosis/symptom? @ -[Acute exacerbation of asthma Acute, or Chronic, or Acute on Chronic? @ -[Acute Uncomplicated (without systemic symptoms) or Complicated (systemic symptoms)? @ -[Uncomplicated Side effects of treatment? @ -[No] Exacerbation, Progression, or Severe Exacerbation? @ -[Moderate exacerbation Poses a threat to life or bodily function? How? (Chest pain, [place], [place], pneumonia, PE, COPD, DKA, ARF, appy, cholecystitis, CVA, Diverticulitis, Homicidal, Suicidal, threat to staff... and all critical care pts) @ -[No] All treatments are based on ideal body weight as in ED triage - Lab Data Result diagrams: 07/27/24 23:44 07/27/24 23:44 Lab Results 07/27/24 07/27/24 07/27/24 Range/Units 23:44 23:44 23:44 WBC 8.5 (3.8-10.6) k/uL RBC 4.05 (3.80-5.40) m/uL Hgb 12.4 (11.4-16.0) gm/dL Hct 37.0 (34.0-46.0) % MCV 91.5 (80.0-100.0) fL MCH 30.6 (25.0-35.0) pg MCHC 33.4 (31.0-37.0) g/dL RDW 13.7 (11.5-15.5) % Plt Count 207 (150-450) k/uL MPV 8.2 Neutrophils % 64 % Lymphocytes % 22 % Monocytes % 7 % Eosinophils % 4 % Basophils % 0 % Neutrophils # 5.5 (1.3-7.7) k/uL Lymphocytes # 1.9 (1.0-4.8) k/uL Monocytes # 0.6 (0-1.0) k/uL Eosinophils # 0.3 (0-0.7) k/uL Basophils # 0.0 (0-0.2) k/uL Sodium 136 L (137-145) mmol/L Potassium 3.8 (3.5-5.1) mmol/L Chloride 106 (98-107) mmol/L Carbon Dioxide 19 L (22-30) mmol/L Anion Gap 11 mmol/L BUN 6 L (7-17) mg/dL Creatinine 0.48 L (0.52-1.04) mg/dL Est GFR (CKD-EPI)AfAm >90 (>60 ml/min/1.73 sqM) Est GFR (CKD-EPI)NonAf >90 (>60 ml/min/1.73 sqM) Glucose 89 (74-99) mg/dL Uric Acid 2.9 L (3.7-7.4) mg/dL Calcium 9.4 (8.4-10.2) mg/dL Magnesium 1.9 (1.6-2.3) mg/dL Total Bilirubin 0.4 (0.2-1.3) mg/dL AST 21 (14-36) U/L ALT 14 (4-34) U/L Alkaline Phosphatase 191 H (38-126) U/L Lactate Dehydrogenase 225 (120-246) U/L NT-Pro-B Natriuret Pep <20 pg/mL Total Protein 7.1 (6.3-8.2) g/dL Albumin 3.8 (3.5-5.0) g/dL Urine Color Colorless Urine Appearance Cloudy H (Clear) Urine pH 7.0 (5.0-8.0) Ur Specific [place] 1.008 (1.001-1.035) Urine Protein Negative (Negative) Urine Glucose (UA) Negative (Negative) Urine Ketones Negative (Negative) Urine Blood Negative (Negative) Urine Nitrite Negative (Negative) Urine Bilirubin Negative (Negative) Urine Urobilinogen <2.0 (<2.0) mg/dL Ur Leukocyte Esterase Small H (Negative) Urine RBC <1 (0-5) /hpf Urine WBC 2 (0-5) /hpf Ur Squamous Epith Cells 2 (0-4) /hpf Urine Bacteria Occasional H (None) /hpf Influenza Type A (PCR) (Not Detectd) Influenza Type B (PCR) (Not Detectd) RSV (PCR) (Not Detectd) SARS-CoV-2 (PCR) (Not Detectd) 07/28/24 Range/Units 00:45 WBC (3.8-10.6) k/uL RBC (3.80-5.40) m/uL Hgb (11.4-16.0) gm/dL Hct (34.0-46.0) % MCV (80.0-100.0) fL MCH (25.0-35.0) pg MCHC (31.0-37.0) g/dL RDW (11.5-15.5) % Plt Count (150-450) k/uL MPV Neutrophils % % Lymphocytes % % Monocytes % % Eosinophils % % Basophils % % Neutrophils # (1.3-7.7) k/uL Lymphocytes # (1.0-4.8) k/uL Monocytes # (0-1.0) k/uL Eosinophils # (0-0.7) k/uL Basophils # (0-0.2) k/uL Sodium (137-145) mmol/L Potassium (3.5-5.1) mmol/L Chloride (98-107) mmol/L Carbon Dioxide (22-30) mmol/L Anion Gap mmol/L BUN (7-17) mg/dL Creatinine (0.52-1.04) mg/dL Est GFR (CKD-EPI)AfAm (>60 ml/min/1.73 sqM) Est GFR (CKD-EPI)NonAf (>60 ml/min/1.73 sqM) Glucose (74-99) mg/dL Uric Acid (3.7-7.4) mg/dL Calcium (8.4-10.2) mg/dL Magnesium (1.6-2.3) mg/dL Total Bilirubin (0.2-1.3) mg/dL AST (14-36) U/L ALT (4-34) U/L Alkaline Phosphatase (38-126) U/L Lactate Dehydrogenase (120-246) U/L NT-Pro-B Natriuret Pep pg/mL Total Protein (6.3-8.2) g/dL Albumin (3.5-5.0) g/dL Urine Color Urine Appearance (Clear) Urine pH (5.0-8.0) Ur Specific [place] (1.001-1.035) Urine Protein (Negative) Urine Glucose (UA) (Negative) Urine Ketones (Negative) Urine Blood (Negative) Urine Nitrite (Negative) Urine Bilirubin (Negative) Urine Urobilinogen (<2.0) mg/dL Ur Leukocyte Esterase (Negative) Urine RBC (0-5) /hpf Urine WBC (0-5) /hpf Ur Squamous Epith Cells (0-4) /hpf Urine Bacteria (None) /hpf Influenza Type A (PCR) Not Detected (Not Detectd) Influenza Type B (PCR) Not Detected (Not Detectd) RSV (PCR) Not Detected (Not Detectd) SARS-CoV-2 (PCR) Not Detected (Not Detectd) - EKG Data -: EKG Interpreted by Me EKG shows normal: sinus rhythm, axis (Normal), intervals (Normal), QRS complexes (Normal) Rate: tachycardia (Rate 129 bpm) Interpretation: nonspecific ST-T wave changes Disposition Clinical Impression: Asthma exacerbation Disposition: HOME SELF-CARE Condition: Good Instructions (If sedation given, give patient instructions): Asthma (ED) Is patient prescribed a controlled substance at d/c from ED?: No Referrals: None,Stated [Primary Care Provider] - 1-2 days
[2024-07-27] MEDS: SODIUM CHLORIDE 0.9% 500 ML 500 ML IV STA (23:44)
[2024-07-28 00:30] LABS: ALT 14 U/L (4-34); AST 21 U/L (14-36); African American GFR (CKD) >90 (>60 ml/min/1.73 sqM); Albumin 3.8 g/dL (3.5-5.0); Alkaline Phosphatase 191 U/L (38-126); Anion Gap 11 mmol/L; Basophils % (A) 0 %; Blood Urea Nitrogen 6 mg/dL (7-17); Calcium 9.4 mg/dL (8.4-10.2); Carbon Dioxide 19 mmol/L (22-30); Chloride 106 mmol/L (98-107); Eosinophils # (A) 0.3 k/uL (0-0.7); Eosinophils % (A) 4 %; Glucose 89 mg/dL (74-99); HGB 12.4 gm/dL (11.4-16.0); LDH 225 U/L (120-246); Lymphocytes # (A) 1.9 k/uL (1.0-4.8); Lymphocytes % (A) 22 %; MCH 30.6 pg (25.0-35.0); MCHC 33.4 g/dL (31.0-37.0); MCV 91.5 fL (80.0-100.0); Magnesium 1.9 mg/dL (1.6-2.3); Mean Platelet Volume 8.2; Monocytes # (A) 0.6 k/uL (0-1.0); Monocytes % (A) 7 %; Neutrophils # (A) 5.5 k/uL (1.3-7.7); Neutrophils % (A) 64 %; Non-African American GFR(CKD) >90 (>60 ml/min/1.73 sqM); Platelet Count 207 k/uL (150-450); Potassium 3.8 mmol/L (3.5-5.1); RBC 4.05 m/uL (3.80-5.40); RDW 13.7 % (11.5-15.5); Sodium 136 mmol/L (137-145); Total Bilirubin 0.4 mg/dL (0.2-1.3); Total Protein 7.1 g/dL (6.3-8.2); Uric Acid 2.9 mg/dL (3.7-7.4); WBC 8.5 k/uL (3.8-10.6)
[2024-07-28 00:32] LABS: Appearance,Urine Cloudy (Clear); Bacteria,Urine Occasional /hpf; Bilirubin,Urine Negative (Negative); Blood,Urine Negative (Negative); Color,Urine Colorless; Glucose,Urine (UA) Negative (Negative); Ketones,Urine Negative (Negative); Leukocyte Esterase,Urine Small (Negative); Nitrite,Urine Negative (Negative); Protein,Urine Negative (Negative); RBC,Urine <1 /hpf (0-5); Specific Gravity,Urine 1.008 (1.001-1.035); Squamous Epithelial Cell,Urine 2 /hpf (0-4); Urobilinogen,Urine <2.0 mg/dL (<2.0); WBC,Urine 2 /hpf (0-5)
[2024-07-28 00:39] LABS: NT-Pro-B-Type Natriuretic Pept <20 pg/mL
[2024-07-28] MEDS: ALBUTEROL NEBULIZED 2.5 MG/3 ML INHALATION STA (01:00)
[2024-07-28 01:32] LABS: Influenza A Not Detected (Not Detectd); Influenza B Not Detected (Not Detectd); RSV Not Detected (Not Detectd)
[2024-07-28 02:40] VITALS: BP 110/62; PULSE 92; RESP 18; TEMP 98.3
== END 2024-07-28 02:45 | disposition home or self-care (01) ==
LOC: EC 23:06
DX: O99.513 Diseases of the respiratory system complicating pregnancy, third trimester (principal); J45.901 Unspecified asthma with (acute) exacerbation; Z88.0 Allergy status to penicillin; Z88.8 Allergy status to other drugs, medicaments and biological substances; Z3A.35 35 weeks gestation of pregnancy
CPT/HCPCS: 36415; 80053; 81001; 83615; 83735; 83880; 84550; 85025; 87636; 93005; 99285

== ENCOUNTER → 2025-01-14 | Outpatient (CLI) | payer MEDICARE, OTHER ==
[2025-01-14 19:56] LABS: Hepatitis A Antibody IgM Nonreactive (Nonreactive); Hepatitis B Surface Antigen Nonreactive (Nonreactive); Hepatitis C IgG Antibody Nonreactive (Nonreactive)
[2025-01-14 20:13] LABS: ALT 13 U/L (8-44); AST 18 U/L (13-35); Albumin 4.8 g/dL (3.8-4.9); Albumin/Globulin Ratio 1.85 Ratio (1.60-3.17); Alkaline Phosphatase 86 U/L (41-126); Anion Gap 15.30 mmol/L (4.00-12.00); BUN/Creat Ratio 15.38 Ratio (12.00-20.00); Blood Urea Nitrogen 12.3 mg/dL (9.0-27.0); Calcium 9.7 mg/dL (8.7-10.3); Carbon Dioxide 21.7 mmol/L (21.6-31.8); Chloride 102 mmol/L (96-109); Cholesterol 212.00 mg/dL (0.00-200.00); Globulin 2.6 g/dL (1.6-3.3); Glucose 97 mg/dL (70-110); HDL Cholesterol 50.30 mg/dL (40.00-60.00); LDL Cholesterol,Calculated 142.4 mg/dL (0.0-131.0); Potassium 4.1 mmol/L (3.5-5.5); Sodium 139 mmol/L (135-145); T4, Free (Free Thyroxine) 1.09 ng/dL (0.80-1.80); Total Protein 7.4 g/dL (6.2-8.2); Triglycerides 96.30 mg/dL (0.00-149.00); VLDL Calculation 19.26 mg/dL (5.00-40.00)
[2025-01-14 20:26] LABS: Follicle Stimulating Hormone 8.1 mIU/mL
[2025-01-14 21:52] LABS: HIV 2 AB Non-Reactive (Non-Reactive); HIV AB P24 Non-Reactive (Non-Reactive); HIV P24 AG Non-Reactive (Non-Reactive)
== END | disposition home or self-care (01) ==
LOC: LABWHC1 13:53
PROVIDERS: ATTEND Student in an Organized Health Care Education/Training Program
DX: Z13.1 Encounter for screening for diabetes mellitus (principal); Z13.220 Encounter for screening for lipoid disorders; Z11.3 Encounter for screening for infections with a predominantly sexual mode of transmission; I10 Essential (primary) hypertension; N91.2 Amenorrhea, unspecified; R63.4 Abnormal weight loss; Z86.718 Personal history of other venous thrombosis and embolism
CPT/HCPCS: 36415; 80053; 80061; 80074; 82670; 83001; 83002; 83036; 84146; 84439; 84443; 85379; 86780; 87390